=== PATIENT | male | born 1950 | race Caucasian/White ===

== ENCOUNTER → 2024-02-29 | Outpatient (CLI) | payer MEDICARE, OTHER, SELFPAY ==
[2024-02-29 12:32] LABS: Absolute Lymphocyte Count 1.22 X10^3/uL (0.83-4.51); Absolute Neutrophil Count 3.4 X10^3/uL (2.0-7.7); Basophil# 0.04 X10^3/uL; Basophil% 0.7 % (0-1); Eosinophil# 0.15 X10^3/uL; Eosinophils% 2.8 % (0-5); Erythrocyte Sedimentation Rate 2 mm/hr (0-20); Hematocrit 41.3 % (40-54); Hemoglobin 13.8 g/dL (13.0-16.5); Lymphocyte # 1.22 X10^3/ul (0.83-4.51); Lymphocyte % 22.6 % (19-41); Mean Corp Hgb Conc 33.4 g/dL (32-36); Mean Corpuscular Hgb 31.9 pg (27.0-32.0); Mean Corpuscular Volume 95.6 fL (80-94); Mean Platelet Vol. 9.3 fl (6.2-12.0); Monocyte# 0.61 X10^3/uL; Monocyte% 11.3 % (0-10); NRBC Flagged by Analyzer 0 % (0-5); Neutrophil # 3.35 X10^3/uL (2.7-7.7); Neutrophil % 62.2 % (47-70); Platelet Count 250 K/mm3 (150-450); RBC Distribution Width CV 11.7 % (11.6-14.6); RBC Distribution Width SD 41.3 fl (35.1-43.9); Red Blood Count 4.32 M/mm3 (4.6-6.2); White Blood Count 5.4 K/mm3 (4.4-11.0)
[2024-02-29 13:03] LABS: ALB/GLOB Ratio 1.1 RATIO (0.9-2.4); AST(SGOT) 17 U/L (15-37); Alanine Aminotransfer ALT/SGPT 16 U/L (16-61); Albumin, Serum 3.7 g/dL (3.2-5.0); Alkaline Phosphatase 79 U/L (45-117); Anion Gap 3 (5-15); BUN 13 mg/dL (7-18); BUN/Creat Ratio 12.1 RATIO (10-20); CRP < 2.90 mg/L (0.0-3.0); Calcium,Total 9.4 mg/dL (8.5-10.1); Chloride 106 mmol/L (98-107); Creatinine, Serum 1.07 mg/dL (0.70-1.30); EST Glomerular Filtration Rate 72 mL/min (>60); Est Glom Filt Rate - Afr Amer 87 mL/min (>60); Globulin 3.5 g/dL (2.2-4.2); Glucose 84 mg/dL (74-106); Protein, Total 7.2 g/dL (6.4-8.2); Sodium Level 139 mmol/L (136-145)
[2024-03-01 13:08] LABS: ANTINUCLEAR ANTIBODIES DIRECT Positive (Negative); CCP IgG Antibodies 24 units (0-19)
== END | disposition home or self-care (01) ==
LOC: MTLAB 10:10
PROVIDERS: PCP Family Medicine; Referring Provider Internal Medicine Rheumatology; Visit Provider Internal Medicine Rheumatology
DX: M06.30 Rheumatoid nodule, unspecified site (principal); M47.892 Other spondylosis, cervical region; M47.897 Other spondylosis, lumbosacral region
CPT/HCPCS: 36415; 80053; 85025; 85652; 86038; 86140; 86200; 86431

== ENCOUNTER → 2025-03-31 | Outpatient (CLI) | payer MEDICARE, OTHER, SELFPAY ==
[2025-03-31 16:03] LABS: Absolute Lymphocyte Count 1.23 X10^3/uL (0.83-4.51); Absolute Neutrophil Count 3.7 X10^3/uL (2.0-7.7); Basophil# 0.04 X10^3/uL; Basophil% 0.7 % (0-1); Eosinophils% 1.8 % (0-5); Hematocrit 39.7 % (40-54); Hemoglobin 13.9 g/dL (13.0-16.5); Lymphocyte # 1.23 X10^3/ul (0.83-4.51); Lymphocyte % 22.1 % (19-41); Mean Corpuscular Volume 91.5 fL (80-94); Mean Platelet Vol. 9.1 fl (6.2-12.0); Monocyte# 0.48 X10^3/uL; Monocyte% 8.6 % (0-10); NRBC Flagged by Analyzer 0 % (0-5); Neutrophil % 66.4 % (47-70); Platelet Count 245 K/mm3 (150-450); RBC Distribution Width CV 11.7 % (11.6-14.6); RBC Distribution Width SD 39.3 fl (35.1-43.9); Red Blood Count 4.34 M/mm3 (4.6-6.2); White Blood Count 5.6 K/mm3 (4.4-11.0)
[2025-03-31 16:52] LABS: Erythrocyte Sedimentation Rate 5 mm/hr (0-20)
--- OUTSIDE RECORDS SUMMARY | 2025-03-31 22:23 | XMS RPT_ITS | CCD ---
Author Organization [facility] [employer] Care Team Providers Care Informatics Application Analyst Name Role Phone Julissa Shawanda Primary Care Provider Lishnevski, Shawanda Referring Unavailable Lishnevski, Shawanda Primary Care Unavailable Lishnevski, Shawanda Attending Unavailable Lishnevski, Shawanda Referring Unavailable Anotnietta Mcgill Attending Unavailable Lishnevski, Shawanda Primary Care Unavailable Lishnevski, Shawanda Primary Care Unavailable Lishnevski, Shawanda Referring Unavailable Lishnevski, Shawanda Attending Unavailable Lishnevski, Shawanda Primary Care Unavailable Antonietta Mcgill Attending Unavailable Lishnevski, Shawanda Referring Unavailable Lishnevski, Shawanda Referring Unavailable NetConner mccarthy Attending Unavailable Lishnevski, Shawanda Primary Care Unavailable Lishnevski, Shawanda Primary Care Unavailable Chris Sandoval Attending Unavailable Lishnevski, Shawanda Referring Unavailable Lishnevski, Shawanda Primary Care Unavailable Conner Quintero Attending Unavailable Lishnevski, Shawanda Referring Unavailable Lishnevski, Shawanda Referring Unavailable Lishnevski, Shawanda Primary Care Unavailable Lishnevski, Shawanda Attending Unavailable Lishnevski, Shawanda Primary Care Unavailable MELY GALICIA Attending Unavailable Lishnevski, Shawanda Referring Unavailable Lishnevski, Shawanda Referring Unavailable Lishnevski, Shawanda Attending Unavailable Lishnevski, Shawanda Primary Care Unavailable Lishnevski, Shawanda Referring Unavailable Lishnevski, Shawanda Attending Unavailable Lishnevski, Shawanda Primary Care Unavailable Julio Chnevski , Shawanda Primary Care Provider Karma PRITCHARD, Shanel Unavailable Unavailable Tanmay Elliott DO Unavailable Lexi DO, Gurneet Unavailable Conner Quintero MD Unavailable Moris YBARRA, Igor Unavailable Otot PRITCHARD, Monet Unavailable Unavailable Julissa YBARRA, Shawanda Primary Care Provider Karma PRITCHARD, Shanel Unavailable Unavailable Lexi DO, Gurneet Unavailable Conner Quintero MD Unavailable Moris YBARRA, Igor Unavailable Otto PRITCHARD, Monet Unavailable Unavailable Julissa YBARRA, Shawanda Primary Care Provider Moris YBARRA, Igor Unavailable Leon YBARRA, Conner Unavailable Geovanny YBARRA, Elia Lopez Unavailable Lishnevski, Shawanda Primary Care Unavailable Jose Velazquezma Referring Unavailable Jose Velazquezma Attending Unavailable Lexi DO, Gurneet Unavailable LISHNEVSKI, SHAWANDA Primary Care Unavailable DANY HEALY Attending Unavailable LISHNEVSKI, SHAWANDA Primary Care Unavailable BREANNA TOLLIVER Attending Unavailable LISHNEVSKI, SHAWANDA Primary Care Unavailable LISHNEVSKI, SHAWANDA Referring Unavailable MOHAN HASKINS Attending Unavailable LISHNEVSKI, SHAWANDA Primary Care Unavailable ANTONIETTA MCGILL Attending Unavailable VAN HOLCOMB Attending Unavailable LISHNEVSKI, SHAWANDA Primary Care Unavailable LISHNEVSKI, SHAWANDA Primary Care Unavailable LISHNEVSKI, SHAWANDA Attending Unavailable LISHNEVSKI, SHAWANDA Primary Care Unavailable LISHNEVSKI, SHAWANDA Attending Unavailable LISHNEVSKI, SHAWANDA Primary Care Unavailable CONNER QUINTERO Attending Unavailable CONNER QUINTERO Admitting Unavailable LISHNEVSKI, SHAWANDA Primary Care Unavailable DANY HEALY Attending Unavailable LISHNEVSKI, SHAWANDA Primary Care Unavailable DANY HEALY Attending Unavailable LISHNEVSKI, SHAWANDA Primary Care Unavailable VAN HOLCOMB Referring Unavailable LISHNEVSKI, SHAWANDA Primary Care Unavailable ANTONIETTA MCGILL Referring Unavailable LISHNEVSKI, SHAWANDA Attending Unavailable LISHNEVSKI, SHAWANDA Primary Care Unavailable BARBARA ANGELICA Referring Unavailable SAMANGELICA LOERA Attending Unavailable LISHNEVSKI, SHAWANDA Primary Care Unavailable NETHING, CONNER Referring Unavailable NETHING, CONNER Attending Unavailable LISHNEVSKI, SHAWANDA Primary Care Unavailable NETHING, CONNER Attending Unavailable LISHNEVSKI, SHAWANDA Primary Care Unavailable DANY HEALY Attending Unavailable LISHNEVSKI, SHAWANDA Primary Care Unavailable NETHING, CONNER Attending Unavailable LISHNEVSKI, SHAWANDA Primary Care Unavailable NETHING, CONNER Attending Unavailable LISHNEVSKI, SHAWANDA Primary Care Unavailable NETHING, CONNER Referring Unavailable TAVO WICK Attending Unavailable LISHNEVSKI, SHAWANDA Primary Care Unavailable BREANNA TOLLIVER Attending Unavailable LISHNEVSKI, SHAWANDA Primary Care Unavailable LISHNEVSKI, SHAWANDA Attending Unavailable BRAYAN LEON Attending Unavailable LISHNEVSKI, SHAWANDA Primary Care Unavailable LISHNEVSKI, SHAWANDA Primary Care Unavailable MARK YEH Attending Unavailable MARK YEH Admitting Unavailable LISHNEVSKI, SHAWANDA Primary Care Unavailable GIOVANNI VELÁZQUEZMA Attending Unavailable LISHNEVSKI, SHAWANDA Primary Care Unavailable LISHNEVSKI, SHAWANDA Referring Unavailable LISHNEVSKI, SHAWANDA Attending Unavailable Allergies Allergy Classification Reported Allergen(s) Allergy Type Date of Onset Reaction(s) Facility Pollen (2 sources) Pollen Substance Allergy 2 [facility] rOPINIRole (2 sources) rOPINIRole Drug Allergy 3 [facility] [employer] Work Phone: (3 sources) Seasonal allergy Propensity to adverse reactions to substance 2 [facility] (20 sources) Other Propensity to adverse reactions 2 [facility] (20 sources) Pollen Propensity to adverse reactions 2 [facility] (2 sources) hydroCHLOROthiazide Drug Allergy 3 Other [facility] [employer] Work Phone: (20 sources) rOPINIRole Drug Allergy 3 [facility] Medications Current Medications Medication Drug Class(es) Dates Sig (Normalized) Sig (Original) acetaminophen 325 mg / HYDROcodone bitartrate 5 mg oral tablet (3 sources) Opioid Agonist Start: 04-04-2023 End: 04-08-2023 take 1 tablet by mouth every eight hours as needed for pain HYDROcodone-acetam inophen ([place]) 5-325 MG tablet Take 1 tablet by mouth every 8 hours as needed for severe pain (7-10) for up to 4 days. 12 tablet 0 04/04/2023 04/08/2023 Active 24 hr alfuzosin hydrochloride 10 mg extended release oral tablet (14 sources) alpha-Adrenergic Radha Start: 06-28-2022 take 1 tablet by mouth once daily alfuzosin (UROXATRAL) 10 MG extended release tablet Indications: Recurrent depression (HCC) , Social anxiety disorder , BPH without obstruction/lower urinary tract symptoms , Essential hypertension , Other sleep disorders , BPH without urinary obstruction Take 1 tablet by mouth daily 90 tablet 1 06/28/2022 Active Start: 06-09-2022 take 1 tablet by salvatore th once daily alfuzosin (UROXATRAL) 10 MG extended release tablet Indications: Recurrent depression (HCC) , Social anxiety disorder , BPH without obstruction/lower urinary tract symptoms , Essential hypertension , Other sleep disorders , BPH without urinary obstruction Take 1 tablet by mouth daily 90 tablet 2 06/09/2022 Active Start: 03-23-2022 take 1 tablet by salvatore th once daily alfuzosin (UROXATRAL) 10 MG extended release tablet Indications: Recurrent depression (HCC) , Social anxiety disorder , BPH without obstruction/lower urinary tract symptoms , Essential hypertension , Other sleep disorders , BPH without urinary obstruction Take 1 tablet by mouth daily 90 tablet 0 03/23/2022 Active Start: 03-10-2022 take 1 tablet by salvatore th once daily alfuzosin (UROXATRAL) 10 MG extended release tablet Indications: Recurrent depression (HCC) , Social anxiety disorder , BPH without obstruction/lower urinary tract symptoms , Essential hypertension , Other sleep disorders , BPH without urinary obstruction Take 1 tablet by mouth daily 90 tablet 0 03/10/2022 Active Start: 05-24-2021 take 1 tablet by salvatore th once daily alfuzosin (UROXATRAL) 10 MG extended release tablet Indications: Recurrent depression (HCC) , Social anxiety disorder , BPH without obstruction/lower urinary tract symptoms , Essential hypertension , Other sleep disorders , BPH without urinary obstruction Take 1 tablet by mouth daily 90 tablet 2 05/24/2021 Active Start: 12-29-2020 take 1 tablet by salvatore th once daily alfuzosin (UROXATRAL) 10 MG extended release tablet Indications: Recurrent depression (HCC) , Social anxiety disorder , BPH without obstruction/lower urinary tract symptoms , Essential hypertension , Other sleep disorders , BPH without urinary obstruction Take 1 tablet by mouth daily 90 tablet 1 12/29/2020 Active Start: 06-03-2020 take 1 tablet by salvatore th once daily alfuzosin (UROXATRAL) 10 MG extended release tablet Indications: Recurrent depression (HCC) , Social anxiety disorder , BPH without obstruction/lower urinary tract symptoms , Essential hypertension , Other sleep disorders Take 1 tablet by mouth daily 90 tablet 1 06/03/2020 Active amoxicillin 500 mg oral capsule (3 sources) Penicillin-class Antibacterial Start: 02-14-2023 End: 02-28-2023 take 2 capsules by mouth three times daily at mealtime amoxicillin (Amoxil) 500 MG capsule Take 2 capsules (1,000 mg) by mouth 3 times daily for 14 days. Take with food 84 capsule 0 02/14/2023 02/28/2023 Active ARIPiprazole 2 mg oral tablet (14 sources) Atypical Antipsychotic Start: 05-24-2021 take 1 tablet by mouth once daily in the morning ARIPiprazole (ABILIFY) 2 MG tablet take 1 tablet by mouth every morning 90 tablet 2 05/24/2021 Active Start: 05-03-2020 take 1 tablet by salvatore th once daily in the morning ARIPiprazole (ABILIFY) 2 MG tablet take 1 tablet by mouth every morning 0 05/03/2020 Active bacitracin 0.5 unt/mg topical ointment (3 sources) Start: 10-24-2023 End: 11-23-2023 bacitracin 500 UNIT/GM ointment Apply topically 2 times daily. Apply bid over affected area 14 g 0 10/24/2023 11/23/2023 Active carbidopa 25 mg / levodopa 100 mg oral tablet (20 sources) Aromatic Amino Acid Decarboxylation Inhibitor, Aromatic Amino Acid Start: 09-20-2023 End: 12-25-2023 carbidopa-levodopa (Sinemet) 25-100 MG tablet Indications: Parkinson's disease without dyskinesia or fluctuating manifestations Take 1 tablet by mouth in the morning and 1 tablet at noon and 1 tablet in the evening and 1 tablet before bedtime. 360 tablet 2 09/20/2023 12/25/2023 Discontinued Start: 06-28-2023 End: 02-09-2025 take 1 tablet by mouth three times daily carbidopa-levodopa (Sinemet) 25-100 MG tablet Indications: Parkinson's disease without dyskinesia or fluctuating manifestations (HCC) Take 1 tablet by mouth 3 times daily. 270 tablet 3 11/11/2024 Active clonazePAM 0.5 mg oral tablet (20 sources) Benzodiazepine Start: 06-20-2024 End: 04-24-2025 take 0.5 tablet by mouth once daily as needed for anxiety clonazePAM (KlonoPIN) 0.5 MG tablet Indications: Generalized anxiety disorder with panic attacks Take 0.5 tablets (0.25 mg) by mouth Daily as needed for anxiety. 8 tablet 01/24/2025 04/24/2025 Active Start: 06-20-2024 End: 05-20-2024 take 0.5 tablet by mouth once daily as needed for anxiety clonazePAM (KlonoPIN) 0.5 MG tablet Indications: Generalized anxiety disorder with panic attacks Take 0.5 tablets (0.25 mg) by mouth Daily as needed for anxiety for up to 24 doses. Do not start before June 20, 2024. 8 tablet 06/20/2024 05/20/2024 Discontinued Start: 06-20-2024 End: 09-18-2024 take 0.5 tablet by mouth once daily as needed for anxiety clonazePAM (KlonoPIN) 0.5 MG tablet Indications: Generalized anxiety disorder with panic attacks Take 0.5 tablets (0.25 mg) by mouth Daily as needed for anxiety. Do not start before June 20, 2024. 8 tablet 06/20/2024 09/18/2024 Active Start: 06-20-2024 take 0.5 tablet by m outh once daily as needed for anxiety clonazePAM (KlonoPIN) 0.5 MG tablet Indications: Generalized anxiety disorder with panic attacks Take 0.5 tablets (0.25 mg) by mouth Daily as needed for anxiety for up to 24 doses. Do not start before June 20, 2024. 8 tablet 06/20/2024 Active Start: 06-20-2024 take 0.5 tablet by m outh once daily as needed for anxiety clonazePAM (KlonoPIN) 0.5 MG tablet Indications: Generalized anxiety disorder with panic attacks Take 0.5 tablets (0.25 mg) by mouth Daily as needed for anxiety for up to 24 doses. Do not start before June 20, 2024. 8 tablet 06/20/2024 Active Start: 06-20-2024 take 0.5 tablet by m outh once daily as needed for anxiety clonazePAM (KlonoPIN) 0.5 MG tablet Indications: Generalized anxiety disorder with panic attacks Take 0.5 tablets (0.25 mg) by mouth Daily as needed for anxiety for up to 24 doses. Do not start before June 20, 2024. 8 tablet 06/20/2024 Active Start: 06-20-2024 take 0.5 tablet by m outh once daily as needed for anxiety clonazePAM (KlonoPIN) 0.5 MG tablet Indications: Generalized anxiety disorder with panic attacks Take 0.5 tablets (0.25 mg) by mouth Daily as needed for anxiety for up to 24 doses. Do not start before June 20, 2024. 8 tablet 06/20/2024 Active Start: 06-20-2024 take 0.5 tablet by m outh once daily as needed for anxiety clonazePAM (KlonoPIN) 0.5 MG tablet Indications: Generalized anxiety disorder with panic attacks Take 0.5 tablets (0.25 mg) by mouth Daily as needed for anxiety for up to 24 doses. Do not start before June 20, 2024. 8 tablet 06/20/2024 Active Start: 06-20-2024 take 0.5 tablet by m outh once daily as needed for anxiety clonazePAM (KlonoPIN) 0.5 MG tablet Indications: Generalized anxiety disorder with panic attacks Take 0.5 tablets (0.25 mg) by mouth Daily as needed for anxiety for up to 24 doses. Do not start before June 20, 2024. 8 tablet 06/20/2024 Active Start: 06-20-2024 take 0.5 tablet by m outh once daily as needed for anxiety clonazePAM (KlonoPIN) 0.5 MG tablet Indications: Generalized anxiety disorder with panic attacks Take 0.5 tablets (0.25 mg) by mouth Daily as needed for anxiety for up to 24 doses. Do not start before June 20, 2024. 8 tablet 06/20/2024 Active Start: 06-20-2024 take 0.5 tablet by m outh once daily as needed for anxiety clonazePAM (KlonoPIN) 0.5 MG tablet Indications: Generalized anxiety disorder with panic attacks Take 0.5 tablets (0.25 mg) by mouth Daily as needed for anxiety for up to 24 doses. Do not start before June 20, 2024. 8 tablet 06/20/2024 Active Start: 06-20-2024 take 0.5 tablet by m outh once daily as needed for anxiety clonazePAM (KlonoPIN) 0.5 MG tablet Indications: Generalized anxiety disorder with panic attacks Take 0.5 tablets (0.25 mg) by mouth Daily as needed for anxiety for up to 24 doses. Do not start before June 20, 2024. 8 tablet 06/20/2024 Active Start: 06-20-2024 take 0.5 tablet by m outh once daily as needed for anxiety clonazePAM (KlonoPIN) 0.5 MG tablet Indications: Generalized anxiety disorder with panic attacks Take 0.5 tablets (0.25 mg) by mouth Daily as needed for anxiety for up to 24 doses. Do not start before June 20, 2024. 8 tablet 06/20/2024 Active Start: 06-20-2024 take 0.5 tablet by m outh once daily as needed for anxiety clonazePAM (KlonoPIN) 0.5 MG tablet Indications: Generalized anxiety disorder with panic attacks Take 0.5 tablets (0.25 mg) by mouth Daily as needed for anxiety for up to 24 doses. Do not start before June 20, 2024. 8 tablet 06/20/2024 Active Start: 03-19-2024 End: 04-23-2024 take 0.5 tablet by mouth once daily as needed for anxiety clonazePAM (KlonoPIN) 0.5 MG tablet Indications: Generalized anxiety disorder with panic attacks Take 0.5 tablets (0.25 mg) by mouth Daily as needed for anxiety for up to 24 doses. 12 tablet 03/19/2024 04/23/2024 Discontinued (Reorder) Start: 01-03-2024 take 0.5 tablet by m outh once daily as needed for anxiety clonazePAM (KlonoPIN) 0.5 MG tablet Indications: Generalized anxiety disorder with panic attacks Take 0.5 tablets (0.25 mg) by mouth Daily as needed for anxiety. 8 tablet 0 01/03/2024 Active Start: 09-26-2023 take 0.5 tablet by m outh once daily as needed for anxiety clonazePAM (KlonoPIN) 0.5 MG tablet Indications: Generalized anxiety disorder with panic attacks Take 0.5 tablets (0.25 mg) by mouth Daily as needed for anxiety. 8 tablet 0 09/26/2023 Active Start: 05-23-2023 End: 08-01-2023 take 0.5 tablet by mouth once daily as needed for anxiety clonazePAM (KlonoPIN) 0.5 MG tablet Indications: Generalized anxiety disorder with panic attacks Take 0.5 tablets (0.25 mg) by mouth Daily as needed for anxiety. 8 tablet 0 08/01/2023 Active Start: 05-23-2023 take 0.5 tablet by m outh once daily as needed for anxiety clonazePAM (KlonoPIN) 0.5 MG tablet Indications: Generalized anxiety disorder with panic attacks Take 0.5 tablets (0.25 mg) by mouth Daily as needed for anxiety. Do not start before May 23, 2023. 8 tablet 0 05/23/2023 Active Start: 04-19-2023 take 0.5 tablet by m outh once daily as needed for anxiety clonazePAM (KlonoPIN) 0.5 MG tablet Indications: Generalized anxiety disorder with panic attacks Take 0.5 tablets (0.25 mg) by mouth Daily as needed for anxiety. 8 tablet 0 04/19/2023 Active Start: 02-11-2023 End: 02-14-2023 take 1 tablet by mouth every twenty-four hours as needed for anxiety 0.25 mg, Oral, Daily PRN, anxiety, Starting on 02/11/23 at 1824 Start: 09-28-2022 End: 01-17-2023 take 0.5 tablet by mouth once daily as needed for anxiety clonazePAM (KlonoPIN) 0.5 MG tablet Indications: Generalized anxiety disorder with panic attacks Take 0.5 tablets (0.25 mg) by mouth Daily as needed for anxiety. 8 tablet 0 01/17/2023 Active Start: 09-02-2019 clonazePAM (KL ONOPIN) 0.5 MG tablet 3 times daily as needed. 0 09/02/2019 Active docusate sodium 100 mg oral capsule (17 sources) Start: 04-08-2024 End: 04-24-2024 take 1 capsule by mouth twice daily docusate sodium (Colace) 100 MG capsule Take 1 capsule (100 mg) by mouth 2 times daily for 10 days. 20 capsule 04/09/2024 04/24/2024 Active doxycycline hyclate 100 mg oral capsule (2 sources) Tetracycline- class Drug Start: 10-24-2023 End: 10-31-2023 doxycycline (Vibramycin) 100 MG capsule Take 1 capsule (100 mg) by mouth 2 times daily for 7 days. Take with at least 8 ounces (large glass) of water, do not lie down for 30 minutes after 14 capsule 0 10/24/2023 10/31/2023 Active Start: 03-04-2023 End: 03-14-2023 doxycycline (Vibramycin) 100 MG capsule Take 1 capsule (100 mg) by mouth 2 times daily for 7 days. Take with at least 8 ounces (large glass) of water, do not lie down for 30 minutes after 14 capsule 0 03/04/2023 03/14/2023 Discontinued (Therapy completed) ezetimibe 10 mg oral tablet (8 sources) Dietary Cholesterol Absorption Inhibitor Start: 05-24-2021 take 1 tablet by mouth once daily ezetimibe (ZETIA) 10 MG tablet Indications: Mixed hyperlipidemia , BPH without urinary obstruction Take 1 tablet by mouth daily 90 tablet 2 05/24/2021 Active Start: 12-29-2020 take 1 tablet by salvatore th once daily ezetimibe (ZETIA) 10 MG tablet Indications: Mixed hyperlipidemia , BPH without urinary obstruction Take 1 tablet by mouth daily 30 tablet 3 12/29/2020 Active Start: 06-03-2020 take 1 tablet by salvatore th once daily ezetimibe (ZETIA) 10 MG tablet Indications: Mixed hyperlipidemia Take 1 tablet by mouth daily 30 tablet 3 06/03/2020 Active gabapentin 400 mg oral capsule (20 sources) Anti-epileptic Agent Start: 05-15-2024 End: 08-13-2024 take 3 capsules by mouth once daily gabapentin (Neurontin) 400 MG capsule Indications: REM behavioral disorder Take 3 capsules (1,200 mg) by mouth Nightly. Do not start before May 15, 2024. 270 capsule 3 05/15/2024 Active Start: 04-10-2024 End: 04-10-2025 take 1 capsule by mouth three times daily gabapentin (Neurontin) 400 MG capsule Take 1 capsule (400 mg) by mouth 3 times daily. 90 capsule 1 04/10/2024 05/10/2024 Discontinued (Reorder) Start: 04-08-2024 End: 04-09-2024 take 2000 mg by mouth once daily 2,000 mg, Oral, Nightly, First dose on 04/08/24 at 2100, Phase II/On Unit Start: 05-01-2023 End: 01-14-2024 gabapentin (Neurontin) 400 M G capsule Take 5 before bedime 150 capsule 3 01/15/2024 Active Start: 03-07-2023 gabapentin (Ne urontin) 400 MG capsule Take 3 before bedime 150 capsule 3 03/07/2023 Active Start: 02-12-2023 End: 02-14-2023 gabapentin (Neurontin) table t 600 mg Start: 10-03-2022 gabapentin (Ne urontin) 400 MG capsule Take 5 before bedime 150 capsule 3 10/03/2022 Active Start: 05-13-2022 End: 09-13-2022 take 1 capsule by mouth five times daily gabapentin (NEURONTIN) 400 MG capsule Indications: Recurrent depression (HCC) , Social anxiety disorder , BPH without obstruction/lower urinary tract symptoms , Essential hypertension , Other sleep disorders , BPH without urinary obstruction Take 1 capsule by mouth 5 times daily for 120 days. 150 capsule 3 05/16/2022 09/13/2022 Active Start: 01-17-2022 take 1 capsule by mo uth five times daily gabapentin (NEURONTIN) 400 MG capsule Indications: Recurrent depression (HCC) , Social anxiety disorder , BPH without obstruction/lower urinary tract symptoms , Essential hypertension , Other sleep disorders , BPH without urinary obstruction Take 1 capsule by mouth 5 times daily for 30 days. 150 capsule 3 01/17/2022 Active Start: 09-16-2021 take 1 capsule by mo uth five times daily gabapentin (NEURONTIN) 400 MG capsule Indications: Recurrent depression (HCC) , Social anxiety disorder , BPH without obstruction/lower urinary tract symptoms , Essential hypertension , Other sleep disorders , BPH without urinary obstruction Take 1 capsule by mouth 5 times daily for 30 days. 150 capsule 3 09/16/2021 Active Start: 12-29-2020 take 1 capsule by mo uth five times daily gabapentin (NEURONTIN) 400 MG capsule Indications: Recurrent depression (HCC) , Social anxiety disorder , BPH without obstruction/lower urinary tract symptoms , Essential hypertension , Other sleep disorders , BPH without urinary obstruction Take 1 capsule by mouth 5 times daily for 30 days. 150 capsule 3 12/29/2020 Active Start: 06-03-2020 End: 07-03-2020 take 1 capsule by mouth five times daily gabapentin (NEURONTIN) 400 MG capsule Indications: Recurrent depression (HCC) , Social anxiety disorder , BPH without obstruction/lower urinary tract symptoms , Essential hypertension , Other sleep disorders Take 1 capsule by mouth 5 times daily for 30 days. 150 capsule 3 06/03/2020 Active hydroCHLOROthiazide 25 mg oral tablet (8 sources) Thiazide Diuretic Start: 05-24-2021 End: 08-22-2021 take 1 tablet by mouth once daily hydroCHLOROthiazide (HYDRODIURIL) 25 MG tablet Indications: Recurrent depression (HCC) , Essential hypertension , BPH without urinary obstruction Take 1 tablet by mouth daily 90 tablet 2 05/24/2021 08/22/2021 Active Start: 12-29-2020 take 1 tablet by salvatore th once daily hydroCHLOROthiazide (HYDRODIURIL) 25 MG tablet Indications: Recurrent depression (HCC) , Essential hypertension , BPH without urinary obstruction Take 1 tablet by mouth daily 90 tablet 0 12/29/2020 Active Start: 06-03-2020 End: 11-29-2020 take 1 tablet by mouth once daily hydroCHLOROthiazide (HYDRODIURIL) 25 MG tablet Indications: Recurrent depression (HCC) , Essential hypertension Take 1 tablet by mouth daily 90 tablet 0 08/31/2020 11/29/2020 Active loratadine 10 mg oral tablet (20 sources) Start: 11-20-2023 End: 05-12-2025 take 1 tablet by mouth once daily loratadine (Claritin) 10 MG tablet TAKE 1 TABLET (10 MG) BY MOUTH DAILY. 90 tablet 1 11/13/2024 05/12/2025 Active Start: 05-22-2023 End: 11-18-2023 take 1 tablet by mouth once daily loratadine (Claritin) 10 MG tablet Take 1 tablet (10 mg) by mouth daily. 90 tablet 1 05/22/2023 11/18/2023 Discontinued (Reorder) Start: 06-28-2022 take 1 tablet by salvatore th once daily loratadine (CLARITIN) 10 MG tablet Indications: Pulmonary emphysema, unspecified emphysema type (HCC) Take 1 tablet by mouth daily 90 tablet 0 06/28/2022 Active Start: 05-26-2022 take 1 tablet by salvatore th in the morning loratadine (CLARITIN) 10 MG tablet Indications: Pulmonary emphysema, unspecified emphysema type (HCC) Take 1 tablet by mouth in the morning. 90 tablet 0 05/26/2022 Active Start: 03-23-2022 take 1 tablet by salvatore th once daily loratadine (CLARITIN) 10 MG tablet Indications: Pulmonary emphysema, unspecified emphysema type (HCC) Take 1 tablet by mouth daily 30 tablet 3 03/23/2022 Active Start: 11-26-2021 take 1 tablet by salvatore th once daily loratadine (CLARITIN) 10 MG tablet Indications: Pulmonary emphysema, unspecified emphysema type (HCC) Take 1 tablet by mouth daily 30 tablet 3 11/26/2021 Active methylPREDNISolone 4 mg oral tablet (20 sources) Corticosteroid Start: 11-06-2023 End: 11-13-2023 methylPREDNISolone (Medrol Dospak) 4 MG tablets Take as directed on package. 21 tablet 0 11/06/2023 11/13/2023 Active Start: 08-29-2023 End: 09-05-2023 methylPREDNISolone (Medrol D ospak) 4 MG tablets Take as directed on package. 21 tablet 0 08/29/2023 09/05/2023 Active Start: 01-02-2023 End: 01-09-2023 methylPREDNISolone (Medrol D ospak) 4 MG tablets Take as directed on package. 21 tablet 0 01/02/2023 01/09/2023 Start: 01-02-2023 End: 01-09-2023 methylPREDNISolone (Medrol D ospak) 4 MG tablets Take as directed on package. 21 tablet 0 01/02/2023 01/09/2023 Active mupirocin 0.02 mg/mg topical ointment (2 sources) RNA Synthetase Inhibitor Antibacterial Start: 06-20-2023 End: 06-30-2023 mupirocin (Bactroban) 2 % ointment Indications: Sore in nose Apply topically 3 times daily for 10 days. Apply once daily nasally 22 g 0 06/20/2023 06/30/2023 Active oxyCODONE hydrochloride 5 mg oral tablet (8 sources) Opioid Agonist Start: 04-09-2024 End: 04-14-2024 take 1 tablet by mouth every six hours as needed for pain oxyCODONE (Roxicodone) 5 MG immediate release tablet Indications: Post-op pain Take 1 tablet (5 mg) by mouth every 6 hours as needed for severe pain (7-10) for up to 5 days. 15 tablet 04/09/2024 04/14/2024 Active Start: 04-08-2024 End: 04-09-2024 take 1 tablet by mouth every four hours as needed for pain oxyCODONE (Roxicodone) immediate release tablet 2.5 mg Start: 04-04-2023 End: 04-04-2023 oxyCODONE (Roxicodone) immed iate release tablet 5 mg PARoxetine hydrochloride 10 mg oral tablet (20 sources) Serotonin Reuptake Inhibitor Start: 04-09-2024 End: 04-09-2024 take 10 mg by mouth once daily in the morning 10 mg, Oral, Every morning, First dose on Mon04/09/24 at 0900, Phase II/On Unit Start: 03-19-2024 End: 07-18-2025 take 1 tablet by mouth once daily in the morning PARoxetine (Paxil) 10 MG tablet Take 1 tablet (10 mg) by mouth every morning. 90 tablet 3 07/23/2024 07/18/2025 Active Start: 05-16-2023 End: 08-12-2023 take 1 tablet by mouth once daily in the morning PARoxetine (Paxil) 10 MG tablet Take 1 tablet (10 mg) by mouth every morning. 30 tablet 1 06/13/2023 08/01/2023 Discontinued Start: 02-11-2023 End: 02-14-2023 take 30 mg by mouth once daily 30 mg, Oral, Daily, Fir st dose on 02/11/23 at 1830 Start: 11-07-2022 End: 05-07-2023 take 1 tablet by mouth once daily PARoxetine (Paxil) 30 MG tablet Take 1 tablet (30 mg) by mouth daily. 30 tablet 2 02/06/2023 05/07/2023 Active Start: 08-29-2022 take 1 tablet by salvatore th in the morning PARoxetine (Paxil) 30 MG tablet Take 1 tablet (30 mg) by mouth in the morning. 30 tablet 2 08/29/2022 Active phenazopyridine hydrochloride 200 mg delayed release oral tablet (3 sources) Start: 04-04-2023 End: 04-07-2023 take 1 tablet by mouth three times daily as needed for muscle spasms phenazopyridine (Pyridium) 200 MG tablet Take 1 tablet (200 mg) by mouth 3 times daily as needed for bladder spasms for up to 3 days. 9 tablet 0 04/04/2023 04/07/2023 Active polyethylene glycol 3350 56338 mg powder for oral solution (13 sources) Osmotic Laxative Start: 01-20-2025 polyethylene glycol, PEG, 3350 (MiraLax) 17 GM/SCOOP powder Indications: Rectal bleeding , Irregular bowel habits Take 17 g by mouth daily. 510 g 3 01/20/2025 Active Start: 04-08-2024 End: 04-09-2024 take 17 g by mouth every twenty-four hours as needed for constipation Start: 02-11-2023 End: 02-14-2023 take 17 g by mouth every twenty-four hours as needed for constipation polyethylene glycol (PEG) 3350 (Miralax) packet 17 g polyethylene glycol 3350 [id number] mg / potassium chloride 2970 mg / sodium bicarbonate 6740 mg / sodium chloride 5860 mg / sodium sulfate 48667 mg powder for oral solution (1 source) Osmotic Laxative Start: 01-20-2025 End: 01-21-2025 polyethylene glycol (GaviLyte-G) 236 g solution Indications: Rectal bleeding Please take as directed by GI office for colonoscopy prep. 4000 mL 01/20/2025 01/21/2025 Active 24 hr propranolol hydrochloride 60 mg extended release oral capsule (20 sources) beta-Adrenergic Radha Start: 11-11-2024 End: 02-09-2025 take 1 capsule by mouth once daily propranolol LA (Inderal LA) 60 MG 24 hr capsule Take 1 capsule (60 mg) by mouth daily. Do not crush, chew, or split. 90 capsule 3 11/11/2024 Active Start: 01-24-2023 End: 11-11-2024 take 1 tablet by mouth twice daily propranolol (Inderal) 20 MG tablet TAKE 1 TABLET BY MOUTH TWICE A DAY 180 tablet 1 08/23/2024 11/11/2024 Discontinued QUEtiapine 25 mg oral tablet (10 sources) Atypical Antipsychotic Start: 05-24-2021 take 0.5 tablet by mouth at bedtime QUEtiapine (SEROQUEL) 25 MG tablet take 1/2 tablet by mouth at bedtime 180 tablet 2 05/24/2021 Active Start: 02-04-2020 take 0.5 tablet by m outh at bedtime QUEtiapine (SEROQUEL) 25 MG tablet take 1/2 tablet by mouth at bedtime 0 02/04/2020 Active tamsulosin hydrochloride 0.4 mg oral capsule (20 sources) alpha-Adrenergic Radha Start: 11-13-2023 End: 11-13-2024 take 1 capsule by mouth once daily tamsulosin (Flomax) 0.4 MG 24 hr capsule TAKE 1 CAPSULE BY MOUTH EVERY DAY 90 capsule 1 11/13/2024 Active Start: 08-14-2023 End: 11-11-2023 take 1 capsule by mouth once daily tamsulosin (Flomax) 0.4 MG 24 hr capsule Take 1 capsule (0.4 mg) by mouth daily. 90 capsule 1 08/14/2023 11/11/2023 Discontinued (Reorder) Start: 10-03-2022 End: 08-12-2023 take 1 capsule by mouth once daily tamsulosin (Flomax) 0.4 MG 24 hr capsule Take 1 capsule (0.4 mg) by mouth daily. 90 capsule 1 05/17/2023 08/12/2023 Discontinued (Reorder) Start: 06-28-2022 take 1 capsule by mo uth once daily tamsulosin (FLOMAX) 0.4 MG capsule Take 1 capsule by mouth daily 90 capsule 1 06/28/2022 Active telmisartan 20 mg oral tablet (20 sources) Angiotensin 2 Receptor Radha Start: 03-12-2024 End: 12-05-2024 take 1 tablet by mouth once daily telmisartan (MIcarDIS) 20 MG tablet TAKE 1 TABLET BY MOUTH EVERY DAY 90 tablet 1 12/05/2024 Active Start: 03-02-2023 End: 03-10-2024 take 1 tablet by mouth once daily telmisartan (MIcarDIS) 20 MG tablet Take 1 tablet (20 mg) by mouth daily. 90 tablet 1 09/12/2023 03/10/2024 Discontinued (Reorder) Start: 10-03-2022 take 1 tablet by salvatore th once daily telmisartan (MIcarDIS) 20 MG tablet Take 1 tablet (20 mg) by mouth daily. 30 tablet 3 10/03/2022 Active Start: 06-28-2022 take 1 tablet by salvatore th once daily telmisartan (MICARDIS) 20 MG tablet Indications: Recurrent depression (HCC) , Essential hypertension , BPH without urinary obstruction Take 1 tablet by mouth daily 90 tablet 1 06/28/2022 Active Start: 05-26-2022 take 1 tablet by salvatore th in the morning telmisartan (MICARDIS) 20 MG tablet Indications: Recurrent depression (HCC) , Essential hypertension , BPH without urinary obstruction Take 1 tablet by mouth in the morning. 90 tablet 0 05/26/2022 Active Start: 03-23-2022 take 1 tablet by salvatore th once daily telmisartan (MICARDIS) 20 MG tablet Indications: Recurrent depression (HCC) , Essential hypertension , BPH without urinary obstruction Take 1 tablet by mouth daily 90 tablet 0 03/23/2022 Active Start: 02-21-2022 take 1 tablet by salvatore th once daily telmisartan (MICARDIS) 20 MG tablet Indications: Recurrent depression (HCC) , Essential hypertension , BPH without urinary obstruction Take 1 tablet by mouth daily 90 tablet 0 02/21/2022 Active Start: 05-24-2021 take 1 tablet by salvatore th once daily telmisartan (MICARDIS) 20 MG tablet Indications: Recurrent depression (HCC) , Essential hypertension , BPH without urinary obstruction Take 1 tablet by mouth daily 90 tablet 2 05/24/2021 Active Start: 12-29-2020 take 1 tablet by salvatore th once daily telmisartan (MICARDIS) 20 MG tablet Indications: Recurrent depression (HCC) , Essential hypertension , BPH without urinary obstruction Take 1 tablet by mouth daily 90 tablet 0 12/29/2020 Active Start: 08-31-2020 take 1 tablet by salvatore th once daily telmisartan (MICARDIS) 20 MG tablet Indications: Recurrent depression (HCC) , Essential hypertension Take 1 tablet by mouth daily 90 tablet 0 08/31/2020 Active Start: 06-03-2020 take 1 tablet by salvatore th once daily telmisartan (MICARDIS) 20 MG tablet Indications: Recurrent depression (HCC) , Social anxiety disorder , BPH without obstruction/lower urinary tract symptoms , Essential hypertension , Other sleep disorders Take 1 tablet by mouth daily 90 tablet 0 06/03/2020 Active venlafaxine 37.5 mg oral tablet (14 sources) Serotonin and Norepinephrine Reuptake Inhibitor Start: 09-16-2021 take 1 tablet by mouth twice daily venlafaxine (EFFEXOR) 37.5 MG tablet Take 37.5 mg by mouth 2 times daily 0 09/16/2021 Active Start: 05-24-2021 take 1 tablet by salvatore th twice daily venlafaxine (EFFEXOR) 50 MG tablet Take 1 tablet by mouth 2 times daily 270 tablet 2 05/24/2021 Active take 1 tablet by salvatore th twice daily venlafaxine (EFFEXOR) 50 MG tablet Take 50 mg by mouth 2 times daily 0 Active Completed/Discontinued Medications Medication Drug Class(es) Dates Sig (Normalized) Sig (Original) acetaminophen 500 mg oral tablet (12 sources) Start: 04-08-2024 End: 04-09-2024 take 1 tablet by mouth every eight hours 1,000 mg, Oral, Every 8 hours, First dose on Mon04/08/24 at 2200, Phase II/On Unit Start: 04-08-2024 End: 04-08-2024 1,000 mg, Oral, Once, On Mon04/08/24 at 1245, For 1 dose, Preprocedure, Administer 60 minutes prior to surgery. Start: 04-04-2023 End: 04-04-2023 acetaminophen (Tylenol) tabl et 1,000 mg Start: 02-11-2023 End: 02-14-2023 take 1 tablet by mouth every six hours as needed for pain and fever acetaminophen (Tylenol) tablet 650 mg Start: 02-11-2023 End: 02-11-2023 take 1 tablet by mouth every six hours as needed for pain acetaminophen (Tylenol) tablet 650 mg amoxicillin 875 mg / clavulanate 125 mg oral tablet (2 sources) Penicillin-class Antibacterial Start: 02-14-2023 End: 02-14-2023 take 1 tablet by mouth twice daily amoxicillin-clavulanate (Augmentin) 875-125 MG tablet Take 1 tablet by mouth 2 times daily for 14 days. 28 tablet 0 02/14/2023 02/14/2023 Discontinued (Stop taking at discharge) ampicillin (Omnipen) 2,000 mg in sodium chloride 0.9 % 100 mL IVPB (2 sources) Start: 02-13-2023 End: 02-14-2023 take 2000 mg intravenously every four hours ampicillin (Omnipen) 2,000 mg in sodium chloride 0.9 % 100 mL IVPB calcium chloride 0.0014 meq/ml / potassium chloride 0.004 meq/ml / sodium chloride 0.103 meq/ml / sodium lactate 0.028 meq/ml injectable solution (10 sources) Start: 04-08-2024 End: 04-09-2024 take 75 mL intravenously every hour 75 mL/hr, IntraVENous, Continuous, Starting on Mon04/08/24 at 1915, Phase II/On Unit Start: 04-04-2023 End: 04-04-2023 lactated Ringer's infusion Start: 02-11-2023 End: 02-11-2023 lactated ringers bolus 3,120 mL ceFAZolin (Ancef) 1,000 mg in sodium chloride 0.9 % 50 mL IVPB (2 sources) Start: 04-08-2024 End: 04-09-2024 take 1000 mg intravenously every eight hours 1,000 mg, IntraVENous, at 100 mL/hr, Administer over 30 Minutes, Every 8 hours, First dose on Mon04/08/24 at 2200, For 24 hours, Phase II/On Unit, Mini-Bag Plus bag, Suspected Indication (Select all that apply): Surgical Prophylaxis cefTRIAXone (Rocephin) 2 g in sodium chloride 0.9 % 50 mL IVPB Mini-Bag Plus (2 sources) Start: 02-11-2023 End: 02-11-2023 cefTRIAXone (Rocephin) 2 g in sodium chloride 0.9 % 50 mL IVPB Mini-Bag Plus cefTRIAXone (Rocephin) 2,000 mg in sodium chloride 0.9 % 50 mL IVPB Mini-Bag Plus (2 sources) Start: 02-12-2023 End: 02-13-2023 cefTRIAXone (Rocephin) 2,000 mg in sodium chloride 0.9 % 50 mL IVPB Mini-Bag Plus cetirizine hydrochloride 10 mg oral tablet (2 sources) Histamine-1 Receptor Antagonist Start: 04-09-2024 End: 04-09-2024 10 mg, Oral, Daily, First dose on Mon04/09/24 at 0900, Phase II/On Unit, Substituted for Loratadine (CLARITIN). cyclobenzaprine hydrochloride 10 mg oral tablet (20 sources) Muscle Relaxant Start: 12-15-2022 End: 02-24-2025 take 1 tablet by mouth once daily as needed for muscle spasms cyclobenzaprine (Flexeril) 10 MG tablet Take 1 tablet (10 mg) by mouth Nightly as needed for muscle spasms. 30 tablet 1 01/02/2023 02/24/2025 Discontinued (Therapy completed) 1 ml diphenhydrAMINE hydrochloride 50 mg/ml cartridge (2 sources) Histamine-1 Receptor Antagonist Start: 04-04-2023 End: 04-04-2023 diphenhydrAMINE (BENADryl) injection 12.5 mg fluticasone propionate 0.05 mg/actuat metered dose nasal spray (20 sources) Corticosteroid Start: 05-17-2023 End: 10-24-2023 take 1 spray(s) nasal route once daily fluticasone (Flonase) 50 MCG/ACT nasal spray Administer 1 spray into each nostril daily. 16 g 3 05/17/2023 10/24/2023 Discontinued (Therapy completed) Start: 02-11-2023 End: 02-14-2023 1 spray, Each Nostril, Daily , First dose on 02/11/23 at 1900 Shake gently. Before first use, prime pump (press 6 times until fine spray appears). After use, clean tip and replace cap. Start: 10-03-2022 take 1 spray(s) nasa l route once daily fluticasone (Flonase) 50 MCG/ACT nasal spray Administer 1 spray into each nostril daily. 16 g 3 10/03/2022 Active Start: 06-28-2022 take 1 spray(s) nasa l route once daily fluticasone (FLONASE) 50 MCG/ACT nasal spray 1 spray by Each Nostril route daily 16 g 2 06/28/2022 Active Start: 03-23-2022 take 1 spray(s) nasa l route once daily fluticasone (FLONASE) 50 MCG/ACT nasal spray 1 spray by Each Nostril route daily 16 g 2 03/23/2022 Active gadobutrol (Gadavist) injection 10 mL (2 sources) Start: 07-21-2023 End: 07-21-2023 gadobutrol (Gadavist) injection 10 mL 0.5 ml heparin sodium, porcine 44319 unt/ml prefilled syringe (2 sources) Unfractionated Heparin, Anti-coagulant Start: 04-09-2024 End: 04-09-2024 inject 1 dose by subcutaneous injection twice daily 5,000 Units, SubCUTAneous, Every 12 hours scheduled (2 times per day), First dose on Mon04/09/24 at 0900 hydrocortisone acetate 25 mg rectal suppository (5 sources) Corticosteroid Start: 01-20-2025 End: 02-04-2025 hydrocortisone (Anusol-HC) 25 MG suppository Indications: Hemorrhoids, unspecified hemorrhoid type Insert 1 suppository (25 mg) into the rectum 2 times daily for 10 days. 20 suppository 01/20/2025 02/04/2025 Discontinued (Reorder) 1 ml HYDROmorphone hydrochloride 1 mg/ml cartridge (8 sources) Opioid Agonist Start: 04-08-2024 End: 04-09-2024 take 0.5 mg intravenously every four hours as needed Start: 04-08-2024 End: 04-08-2024 0.25 mg, IntraVENous, Every 5 min PRN, moderate pain (4-6), Starting on Mon04/08/24 at 1703, For 4 doses, Recovery (only), Phase I and Phase II- Initial therapy for moderate pain (4-6). Restricted to a 90 minute time frame starting when the patient can verbally state their pain score. If after 2 doses the pain score does not decrease by more than one point, then call the provider. If oral meds are utilized, do not return to initial therapy medications. Start: 04-04-2023 End: 04-04-2023 HYDROmorphone (Dilaudid) inj ection 0.25 mg Start: 04-04-2023 End: 04-04-2023 HYDROmorphone (Dilaudid) inj ection 0.5 mg iopamidol (ISOVUE-370) 76 % injection 75 mL (1 source) Start: 08-28-2020 End: 08-28-2020 iopamidol (ISOVUE-370) 76 % injection 75 mL iopamidol (Isovue-370) 76 % injection 75 mL (2 sources) Start: 04-19-2024 End: 04-19-2024 take 75 mL intravenously once as needed 75 mL, IntraVENous, IMG once PRN, contrast, Starting on Mon04/19/24 at 0906, For 1 dose 1 ml ketorolac tromethamine 15 mg/ml cartridge (2 sources) Nonsteroidal Anti-inflammatory Drug, Cyclooxygenase Inhibitor Start: 02-11-2023 End: 02-14-2023 take 15 mg intravenously every six hours as needed for pain ketorolac (Toradol) injection 15 mg labetalol (Normodyne,Tranda te) injection 5 mg (2 sources) Start: 04-04-2023 End: 04-04-2023 labetalol (Normodyne,Trand ate) injection 5 mg loratadine (Claritin) 5 mg split tablet (20 sources) Start: 11-26-2021 End: 07-07-2023 take 1 tablet by mouth once daily loratadine (Claritin) 5 mg split tablet take 1 tablet by mouth once daily 0 11/26/2021 07/07/2023 Discontinued (Ineffective) Start: 11-26-2021 take 1 tablet by salvatore th once daily loratadine (Claritin) 5 mg split tablet take 1 tablet by mouth once daily 0 11/26/2021 Suspended Start: 11-26-2021 take 1 tablet by salvatore th once daily loratadine (Claritin) 5 mg split tablet take 1 tablet by mouth once daily 0 11/26/2021 Active 1 ml LORazepam 2 mg/ml injection (2 sources) Benzodiazepine Start: 04-04-2023 End: 04-04-2023 LORazepam (Ativan) injection 0.5 mg losartan potassium 50 mg oral tablet (4 sources) Angiotensin 2 Receptor Radha Start: 04-09-2024 End: 04-09-2024 Start: 02-11-2023 End: 02-14-2023 take 100 mg by mouth once daily 100 mg, Oral, Daily, First dose on 02/11/23 at 1830 Substituted for Telmisartan (MICARDIS). Hold if SBP<100 meloxicam 15 mg oral tablet (20 sources) Nonsteroidal Anti-inflammatory Drug Start: 01-31-2023 End: 05-10-2024 meloxicam (Mobic) 15 MG tablet Take by mouth Daily as needed. 01/31/2023 05/10/2024 Discontinued 2 ml metoclopramide 5 mg/ml prefilled syringe (2 sources) Dopamine-2 Receptor Antagonist Start: 04-04-2023 End: 04-04-2023 metoclopramide (Reglan) injection 5 mg 1 ml morphine sulfate 4 mg/ml injection (2 sources) Opioid Agonist Start: 02-11-2023 End: 02-14-2023 take 2 mg intravenously every four hours as needed for pain morphine sulfate (PF) injection 2 mg 1 ml naloxone hydrochloride 0.4 mg/ml injection (2 sources) Opioid Antagonist Start: 04-09-2024 End: 04-09-2024 0.4 mg, IntraVENous, Every 5 min PRN, opioid reversal, Starting on Mon04/09/24 at 0801, For RR nystatin [id number] unt/ml oral suspension (4 sources) Polyene Antifungal Start: 06-20-2023 End: 07-07-2023 nystatin (Mycostatin) [id number] UNIT/ML suspension Indications: Mouth sores Take 5 mL (500,000 Units) by mouth in the morning and 5 mL (500,000 Units) at noon and 5 mL (500,000 Units) in the evening and 5 mL (500,000 Units) before bedtime. Do all this for 14 days. Swish in mouth and swallow.. 280 mL 0 06/20/2023 07/07/2023 Discontinued (Ineffective) 2 ml ondansetron 2 mg/ml injection (4 sources) Serotonin-3 Receptor Antagonist Start: 04-04-2023 End: 04-04-2023 ondansetron (Zofran) injection 4 mg Start: 02-11-2023 End: 02-14-2023 take 1 tablet by mouth every eight hours as needed for nausea and vomiting ondansetron ODT (Zofran-ODT) disintegrating tablet 4 mg ondansetron ODT (Zofran-ODT) disintegrating tablet 4 mg (2 sources) Start: 04-08-2024 End: 04-09-2024 take 1 tablet by mouth every eight hours as needed for nausea and vomiting ondansetron ODT (Zofran-ODT) disintegrating tablet 4 mg perflutren lipid microspheres (Definity) injection 1.65 mg (4 sources) Start: 09-16-2024 End: 09-16-2024 1.65 mg (1.5 mL), IntraVENous, IMG once PRN, other, Starting on Mon09/16/24 at 1616, For 1 dose, CV Procedural Medications, Once activated, final concentration equals 1.1 mg/mL Start: 02-13-2023 End: 02-13-2023 perflutren lipid microsphere s (Definity) injection 1.65 mg rasagiline 0.5 mg oral tablet (20 sources) Monoamine Oxidase Inhibitor Start: 12-25-2023 End: 05-10-2024 take 1 tablet by mouth once daily rasagiline (Azilect) 0.5 MG tablet Indications: Parkinson's disease without dyskinesia or fluctuating manifestations (HCC) Take 1 tablet (0.5 mg) by mouth daily. 90 tablet 1 12/25/2023 05/10/2024 Discontinued rOPINIRole 1 mg oral tablet (14 sources) Nonergot Dopamine Agonist Start: 04-10-2023 End: 04-09-2024 take 1 tablet by mouth three times daily rOPINIRole (Requip) 1 MG tablet Indications: Tremor Take 1 tablet (1 mg) by mouth 3 times daily. 90 tablet 2 04/10/2023 07/07/2023 Discontinued (Therapy completed) 5 ml sodium chloride 9 mg/ml injection (20 sources) Start: 02-28-2025 End: 02-28-2025 10 mL, IntraVENous, Every 12 hours scheduled (2 times per day), First dose on Mon02/28/25 at 0900 Start: 02-28-2025 End: 02-28-2025 take 100 mL intravenously every hour as needed, then take 20 mL intravenously every hour as needed 5-250 mL/hr, IntraVENous, PRN, if patient receiving piggyback infusions and maintenance fluids are not ordered OR KVO fluids to protect IV site / prevent frequent line interruptions/ long duration, Starting on Mon02/28/25 at 0722, For piggyback infusion, administer at same rate as piggyback for a total of 25 mL. Enter 25 mL into dose field and piggyback rate into rate field of order. If piggyback is infusing at a rate less than 100 mL/hr, enter 25 mL into dose field and 100 mL/hr into rate field of order. For KVO fluids, enter rate of 20 mL/hr or less into rate field of order. Start: 02-28-2025 End: 02-28-2025 take 10 mL intravenously once as needed 10 mL, IntraVENous, PRN, line care, Starting on Mon02/28/25 at 0722, After every IV line use Start: 04-19-2024 End: 04-19-2024 500 mL, IntraVENous, at 1,00 0 mL/hr, Administer over 0.5 Hours, Once, On Mon04/19/24 at 0835, For 1 dose Start: 04-08-2024 End: 04-09-2024 Start: 04-08-2024 End: 04-09-2024 Start: 04-04-2023 End: 04-04-2023 sodium chloride 0.9 % infusi on Start: 04-04-2023 End: 04-04-2023 take 5-40 mL intravenously every twelve hours sodium chloride 0.9% (NS) flush 5-40 mL Start: 02-12-2023 End: 02-12-2023 sodium chloride 0.9 % bolus 500 mL Start: 02-11-2023 End: 02-14-2023 sodium chloride 0.9 % infusi on Start: 02-11-2023 End: 02-14-2023 sodium chloride 0.9% (NS) fl ush 5-40 mL Problems Active Problems Problem Classification Problem Date Documented Da te Episodic/Chronic Anxiety disorders (12 sources) Social phobia; Translations: [Generalized anxiety disorder] Onset: 4 Chronic Aortic; peripheral; and visceral artery aneurysms (20 sources) Aneurysm of ascending aorta; Translations: [Thoracic aortic aneurysm, without rupture] Onset: 2 10-26-2021 Chronic Calculus of urinary tract (9 sources) Calculus of kidney; Translations: [Ureteric stone] Onset: 2 Episodic Cancer of kidney and renal pelvis (20 sources) Malignant tumor of kidney; Translations: [Malignant neoplasm of right kidney, except renal pelvis] Onset: 4 04-24-2024 Chronic Cancer of kidney and renal pelvis (1 source) Personal history of other malignant neoplasm of kidney; Translations: [Personal history of malignant neoplasm of kidney] 07-08-2024 Episodic Chronic kidney disease (6 sources) Chronic kidney disease stage 3A ; Translations: [Stage 3a chronic kidney disease (HCC)] Onset: 5 08-22-2024 Chronic Chronic kidney disease (2 sources) Chronic kidney disease; Translations: [Chronic kidney disease, stage 3a (HCC)] Onset: 5 Chronic obstructive pulmonary disease and bronchiectasis (20 sources) Chronic obstructive pulmonary disease, unspecified; Translations: [Centrilobular emphysema] Onset: 2 Chronic Conduction disorders (20 sources) Right bundle branch block AND left anterior fascicular block; Translations: [Bifascicular block] Onset: 1 09-20-2021 Chronic Deficiency and other anemia (7 sources) Chronic anemia; Translations: [Anemia, unspecified] 07-07-2023 Episodic Diseases of mouth; excluding dental (1 source) Oral lesion; Translations: [Other lesions of oral mucosa] 06-20-2023 Episodic Disorders of lipid metabolism (20 sources) Mixed hyperlipidemia; Translations: [Mixed hyperlipidemia] Onset: 1 Chronic Diverticulosis and diverticulitis (2 sources) Diverticulosis of large intestine without perforation or abscess without bleeding; Translations: [Dvrtclos of lg int w/o perforation or abscess w/o bleeding] Onset: 2 Chronic Essential hypertension (20 sources) Essential hypertension; Translations: [Essential (primary) hypertension] Onset: 2 Chronic Gastrointestinal hemorrhage (7 sources) Rectal hemorrhage; Translations: [Hemorrhage of anus and rectum] Onset: 5 08-27-2024 Episodic Heart valve disorders (2 sources) Nonrheumatic aortic (valve) insufficiency; Translations: [Nonrheumatic aortic (valve) insufficiency] Onset: 2 Chronic Hemorrhoids (5 sources) Hemorrhoids; Translations: [Unspecified hemorrhoids] Onset: 5 01-20-2025 Episodic Hyperplasia of prostate (9 sources) Benign prostatic hyperplasia; Translations: [Benign prostatic hypertrophy without outflow obstruction] Onset: 2 Chronic Mood disorders (20 sources) Recurrent depression; Translations: [Major depressive disorder, recurrent, unspecified] Onset: 2 Chronic Other and ill-defined heart disease (2 sources) Cardiomegaly; Translations: [Cardiomegaly] Onset: 2 Chronic Other diseases of kidney and ureters (4 sources) Other specified disorders of kidney and ureter; Translations: [Other specified disorders of kidney and ureter] Onset: 2 Chronic Other diseases of kidney and ureters (4 sources) Disorder of kidney and/or ureter; Translations: [Other specified disorders of kidney and ureter] Chronic Other diseases of kidney and ureters (2 sources) Cyst of kidney, acquired; Translations: [Cyst of kidney, acquired] Onset: 2 Episodic Other diseases of kidney and ureters (2 sources) Disorder of kidney and ureter, unspecified; Translations: [Disorder of kidney and ureter, unspecified] Onset: 2 Episodic Other gastrointestinal disorders (1 source) Irregular bowel habits; Translations: [Other specified symptoms and signs involving the digestive system and abdomen] 01-20-2025 Episodic Other gastrointestinal disorders (2 sources) Other specified symptoms and signs involving the digestive system and abdomen; Translations: [Other specified symptoms and signs involving the digestive system and abdomen] Onset: 5 Episodic Other hereditary and degenerative nervous system conditions (2 sources) Restless legs; Translations: [Restless legs syndrome] Chronic Other hereditary and degenerative nervous system conditions (2 sources) Restless legs syndrome; Translations: [Restless legs syndrome] Onset: 2 Chronic Other hereditary and degenerative nervous system conditions (5 sources) Essential tremor; Translations: [Essential tremor] Onset: 5 Chronic Other hereditary and degenerative nervous system conditions (1 source) Coarse tremor; Translations: [Other specified forms of tremor] Chronic Other hereditary and degenerative nervous system conditions (1 source) Essential tremor; Translations: [Essential tremor] Onset: 5 Chronic Other injuries and conditions due to external causes (8 sources) Hematoma; Translations: [Other injury of unspecified body region, initial encounter] 04-24-2024 Episodic Other liver diseases (20 sources) Liver cyst; Translations: [Other specified diseases of liver] Onset: 1 09-21-2021 Chronic Other liver diseases (2 sources) Steatosis of liver; Translations: [Fatty liver] Chronic Other liver diseases (4 sources) Other specified diseases of liver; Translations: [Other specified diseases of liver] Onset: 2 Chronic Other liver diseases (2 sources) Lesion of liver; Translations: [Liver disease, unspecified] 02-07-2024 Chronic Other liver diseases (2 sources) Large liver; Translations: [Hepatomegaly] Episodic Other lower respiratory disease (1 source) Chronic cough; Translations: [Chronic cough] Episodic Other lower respiratory disease (3 sources) Nodule of lung; Translations: [Solitary pulmonary nodule] Episodic Other male genital disorders (6 sources) Swelling of scrotum ; Translations: [Other specified disorders of the male genital organs] 04-24-2024 Episodic Other nervous system disorders (2 sources) Tremor; Translations: [Tremor, unspecified] 04-10-2023 Episodic Other nervous system disorders (2 sources) Postoperative pain ; Translations: [Other acute postprocedural pain] 04-09-2024 Episodic Other non-traumatic joint disorders (2 sources) Hand joint pain; Translations: [Pain in joints of unspecified hand] 12-26-2023 Episodic Other nutritional; endocrine; and metabolic disorders (1 source) Loss of appetite; Translations: [Anorexia] 01-20-2025 Episodic Other nutritional; endocrine; and metabolic disorders (2 sources) Anorexia; Translations: [Anorexia] Onset: 5 Episodic Other screening for suspected conditions (not mental disorders or infectious disease) (20 sources) Electrocardiogram abnormal; Translations: [Abnormal electrocardiogram [ECG] [EKG]] Onset: 1 09-15-2021 Episodic Other skin disorders (1 source) Skin lesion; Translations: [Disorder of the skin and subcutaneous tissue, unspecified] 10-24-2023 Episodic Other upper respiratory disease (1 source) Lesion of nose; Translations: [Other specified disorders of nose and nasal sinuses] 06-20-2023 Episodic Parkinson`s disease (2 sources) Parkinson`s disease; Translations: [Parkinson's disease without dyskinesia, without mention of fluctuations (HCC)] Onset: 5 Residual codes; unclassified (12 sources) REM sleep behavior disorder; Translations: [REM sleep behavior disorder] Onset: 5 Chronic Residual codes; unclassified (1 source) Obstructive sleep apnea syndrome; Translations: [Obstructive sleep apnea (adult) (pediatric)] Chronic Residual codes; unclassified (1 source) REM sleep behavior disorder; Translations: [REM sleep behavior disorder] Onset: 5 Chronic Residual codes; unclassified (1 source) Sleep disorder; Translations: [Other sleep disorders] Episodic Residual codes; unclassified (1 source) Tobacco user; Translations: [Tobacco use] Episodic Residual codes; unclassified (2 sources) History of nephrectomy; Translations: [Acquired absence of kidney] 04-19-2024 Episodic Residual codes; unclassified (1 source) Hepatitis B screening required; Translations: [Need for hepatitis B screening test] Rheumatoid arthritis and related disease (8 sources) Rheumatoid nodule, unspecified site; Translations: [Rheumatoid arthritis of multiple joints] Onset: 4 02-24-2025 Chronic Spondylosis; intervertebral disc disorders; other back problems (1 source) Degeneration of thoracic intervertebral disc; Translations: [Other intervertebral disc degeneration, thoracic region] Chronic Spondylosis; intervertebral disc disorders; other back problems (12 sources) Chronic thoracic back pain; Translations: [Pain in thoracic spine] Episodic Syncope (4 sources) Syncope and collapse; Translations: [Syncope and collapse] Onset: 2 Episodic Unclassified (5 sources) Parkinson's disease; Translations: [Parkinson's disease without dyskinesia or fluctuating manifestations] 09-20-2023 Chronic Unclassified (2 sources) Patient encounter status; Translations: [Encounter for screening for cardiovascular disorders] Unclassified (1 source) Aneurysm of the ascending aorta, without rupture (HCC); Translations: [Aneurysm of the ascending aorta, without rupture (HCC)] Onset: 2 Past or Other Problems Problem Classification Problem Date Documented Date Episodic/Chronic Complications of surgical procedures or medical care (4 sources) Hemorrhage following skin surgery; Translations: [Postprocedural hemorrhage of skin and subcutaneous tissue following other procedure] Onset: 04-14-2024 04-14-2024 Episodic Conditions associated with dizziness or vertigo (20 sources) Dizziness and giddiness; Translations: [Dizziness and giddiness] Onset: 06-23-2022 Episodic Deficiency and other anemia (3 sources) Anemia; Translations: [Anemia, unspecified] Onset: 04-30-2024 02-28-2025 Episodic Deficiency and other anemia (1 source) Anemia, unspecified; Translations: [Anemia, unspecified] Onset: 04-30-2024 Episodic Diabetes mellitus with complications (20 sources) Secondary diabetes mellitus; Translations: [Diabetes mellitus due to underlying condition with other diabetic neurological complication] Onset: 03-07-2023 Resolved: 06-20-2023 03-07-2023 Chronic Fluid and electrolyte disorders (20 sources) Hyponatremia; Translations: [Hypo-osmolality and hyponatremia] Onset: 02-11-2023 02-11-2023 Episodic Genitourinary symptoms and ill-defined conditions (2 sources) Frequency of micturition; Translations: [Frequency of micturition] Onset: 08-22-2024 Episodic Mood disorders (20 sources) Mood disorders Onset: 05-27-2022 Resolved: 08-29-2023 08-31-2022 Other circulatory disease (20 sources) Orthostatic hypotension; Translations: [Orthostatic hypotension] Onset: 09-20-2021 09-20-2021 Episodic Other diseases of kidney and ureters (20 sources) Renal mass; Translations: [Other specified disorders of kidney and ureter] Onset: 04-05-2024 Resolved: 04-24-2024 Chronic Other diseases of kidney and ureters (20 sources) Cyst of kidney; Translations: [Cyst of kidney, acquired] Onset: 01-26-2022 01-26-2022 Episodic Other diseases of kidney and ureters (2 sources) Hypertrophy of kidney; Translations: [Hypertrophy of kidney] Onset: 03-18-2022 Episodic Other hematologic conditions (20 sources) Raised cardiac enzyme or marker; Translations: [Other specified abnormalities of plasma proteins] Onset: 02-11-2023 02-11-2023 Episodic Other injuries and conditions due to external causes (2 sources) Other injury of unspecified body region, initial encounter; Translations: [Other injury of unspecified body region, initial encounter] Onset: 07-25-2024 Episodic Other lower respiratory disease (3 sources) Solitary nodule of lung; Translations: [Solitary pulmonary nodule] Onset: 05-16-2022 Episodic Other lower respiratory disease (2 sources) Solitary pulmonary nodule; Translations: [Solitary pulmonary nodule] Onset: 05-16-2022 Episodic Other male genital disorders (2 sources) Other specified disorders of the male genital organs; Translations: [Other specified disorders of the male genital organs] Onset: 04-24-2024 Episodic Other nervous system disorders (2 sources) Other acute postprocedural pain; Translations: [Other acute postprocedural pain] Onset: 04-08-2024 Episodic Residual codes; unclassified (2 sources) Tobacco use and exposure - finding; Translations: [Tobacco use] Onset: 10-18-2021 Episodic Residual codes; unclassified (1 source) Tobacco use; Translations: [Tobacco use] Onset: 10-18-2021 Episodic Residual codes; unclassified (2 sources) Acquired absence of kidney; Translations: [Acquired absence of kidney] Onset: 04-19-2024 Episodic Screening and history of mental health and substance abuse codes (12 sources) H/O: drug dependency; Translations: [Personal history of nicotine dependence] Onset: 05-16-2022 Episodic Septicemia (except in labor) (20 sources) Sepsis due to Gram negative bacteria ; Translations: [Gram-negative sepsis, unspecified] Onset: 02-11-2023 02-11-2023 Episodic Superficial injury; contusion (4 sources) Hematoma of abdominal wall; Translations: [Contusion of abdominal wall, initial encounter] Onset: 04-19-2024 04-19-2024 Episodic Unclassified (1 source) Aneurysm of the ascending aorta, without rupture (HCC); Translations: [Aneurysm of the ascending aorta, without rupture (HCC)] Onset: 09-16-2024 Urinary tract infections (20 sources) Acute cystitis; Translations: [Acute cystitis without hematuria] Onset: 02-11-2023 02-11-2023 Episodic Results Test Name Value Interpretation Reference Range Facility 36on 03-25-[address] Quintero is more a urologist. Web Marketing Analyst does this kidney specifically so we will continue to keep an eye on the kidney function and lets follow-up in 3 months but if it gets any worse would probably recommend specifically seeing a round cutter operator due to your history. Normal [facility] 36 A1c is good nondiabetic. Cholesterol is mildly elevated low-fat diet and exercise PSA is within normal limits kidney function remains mildly elevated but stable. Confirm whether or not patient is seeing round cutter operator if so please send a copy try to stay away from ibuprofen Danny please confirm the name of the round cutter operator that he does see Normal [facility] Office Visiton 02-24-2025 Follow-up visit [id number] Nery Rodriguez Zacarias 1950 M Date Provider Department Center 02/24/2025 [id number] COSTA [facility] Family History Problem Relation Age of Onset Parkinsonism Mother High Blood Pressure Mother Depression Mother Hearing loss Mother Fainting Mother Hypertension Mother Mental illness Mother Heart disease Father Bipolar disorder Sister Mental illness Sister Family Status - Relation Status Age at Mother Alive Father 80 Sister Alive Other Notes: Essential Tremor Level of Service:19141 [place] OFFICE/OUTPATIENT ESTABLISHED MOD MDM 30 MIN Reason for Visit and Comments: Follow-up [[id number]] Normal [facility] Progress Noteon 02-24-2025 Progress Note [facility] - [address] [facility] [address] Dept: [phone] Dept Loc: [phone] Reason for Visit: Follow-up Assessment and Plan 1. Chronic anemia chronic stable continue to monitor blood counts. - Hemoglobin A1c - CBC auto differential - Comprehensive metabolic panel - Lipid panel 2. Essential hypertension chronic stable continue propranolol continue telmisartan. - Hemoglobin A1c - CBC auto differential - Comprehensive metabolic panel - Lipid panel 3. Recurrent major depressive disorder, in full remission ([facility]) patient sees psychiatry on clonazepam psychiatry following on Paxil on Klonopin - Hemoglobin A1c - CBC auto differential - Comprehensive metabolic panel - Lipid panel 4. Screening for diabetes mellitus - Hemoglobin A1c - CBC auto differential - Comprehensive metabolic panel - Lipid panel 5. Rheumatoid arthritis without rheumatoid factor, multiple sites rheumatology was started following patient currently treated by rheumatology ([facility]) - Hemoglobin A1c - CBC auto differential - Comprehensive metabolic panel - Lipid panel 6. Stage 3a chronic kidney disease ([facility]) continue to monitor kidney function. Urology following history of renal nga cancer. This is a chronic stable issue patient had right total nephrectomy - Hemoglobin A1c - CBC auto differential - Comprehensive metabolic panel - Lipid panel 7. Renal cancer, right (HCC) his right kidney nephrectomy. Will continue to monitor his kidney function continue to follow-up with urologist. - Hemoglobin A1c - CBC auto differential - Comprehensive metabolic panel - Lipid panel 8. Pulmonary emphysema, unspecified emphysema type (HCC) chronic stable following CT CAT scan done in May recommendation repeat in 12 months. 9. Screening PSA (prostate specific antigen) - PSA Screening current treatment plan is effective, no change in therapy, orders and follow up as documented in EMR, lab results reviewed with patient, repeat labs ordered prior to next appointment, reviewed compliance with lifestyle measures, reviewed diet, exercise and weight control, reviewed medications and side effects in detail Return visit in 3 months. Subjective HPI this is a 74-year-old male he has a history of renal cell carcinoma with a nephrectomy. He sees Dr. Quintero for his checkups. He has not had any issues he is denying any chest pain is a history of high blood pressure no headaches no blurred vision today feeling well. Review of Systems Allergies Allergen Reactions Pollen Extract Seasonal allergies. Ropinirole Constipation and sleepiness Current Outpatient Medications Medication Sig Dispense Refill clonazePAM (KlonoPIN) 0.5 MG tablet Take 0.5 tablets (0.25 mg) by mouth Daily as needed for anxiety. 8 tablet 0 loratadine (Claritin) 10 MG tablet TAKE 1 TABLET (10 MG) BY MOUTH DAILY. 90 tablet 1 PARoxetine (Paxil) 10 MG tablet Take 1 tablet (10 mg) by mouth every morning. 90 tablet 3 polyethylene glycol, PEG, 3350 (MiraLax) 17 GM/SCOOP powder Take 17 g by mouth daily. 510 g 3 tamsulosin (Flomax) 0.4 MG 24 hr capsule TAKE 1 CAPSULE BY MOUTH EVERY DAY 90 capsule 1 telmisartan (MIcarDIS) 20 MG tablet TAKE 1 TABLET BY MOUTH EVERY DAY 90 tablet 1 carbidopa-levodopa (Sinemet) 25-100 MG tablet Take 1 tablet by mouth 3 times daily. 270 tablet 3 gabapentin (Neurontin) 400 MG capsule Take 3 capsules (1,200 mg) by mouth Nightly. Do not start before May 15, 2024. 270 capsule 3 propranolol LA (Inderal LA) 60 MG 24 hr capsule Take 1 capsule (60 mg) by mouth daily. Do not crush, chew, or split. 90 capsule 3 No current facility-administered medications for this visit. 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 Orthostatic hypotension MDD (major depressive disorder) Dyslipidemia Ascending aortic aneurysm (HCC) Renal cyst, right Essential hypertension Gram-negative sepsis, unspecified (HCC) Lightheadedness Acute cystitis without hematuria Elevated troponin Hyponatremia Pulmonary emphysema, unspecified emphysema type (HCC) Renal cancer, right (HCC) Rheumatoid arthritis without rheumatoid factor, multiple sites (HCC) Stage 3a chronic kidney disease (HCC) Past Medical History: Diagnosis Date 2018 novel coronavirus disease (COVID-19) 02/18/2023 Abnormal EKG Alcoholism ([facility]/HCC) (HCC) 1989 Allergic 01/15/1992 Anxiety Arthritis 02/13/2023 Benign prostatic hyperplasia Not sure Cancer ([facility]/HCC) (HCC) 04/08/2024 Emphysema lung (HCC) Enlarged prostate Erectile dysfunction 12 yea Hyperlipidemia Hypertension Kidney stone 02/13/2023 Parkinson's disease (HCC) REM sleep behavior disorder Sepsis (HCC) Tremor Urinary incontinence Controlled by medication Social Hi (more content not included)... [facility] 36on 02-18-2025 36 Pt is scheduled on 09/03/[address] Gibbons Called pt to offer sooner date. Pt accept 02/28/[address] Ruba fleming the arrival time of 6:00 am at [facility] Spoke w Angelica and have case moved EPIC schedule updated Order submitted Open Case request submitted Case # [id number] Rx called into pharmacy @ Endo packet mailed to patient Prep sent via [employer] if pt acct active Pt is aware they will need a team otr truck driver to take them home from procedure. Must be family member or friend. They cannot use any ride programs. Ex: Uber, Lyft, SCAT, bus, etc...) [facility] [id number] 02-17-2025 [id number] Patient scheduled on 09/03/25 @ 2:15pm with the arrival time of 1:15pm with Dr. Gibbons at [address] [place] [address] EPIC schedule updated Order submitted Open Case request submitted Case # [id number] Endo packet mailed to patient Prep sent via [employer] if pt acct active Pt is aware they will need a team otr truck driver to take them home from procedure. Must be family member or friend. They cannot use any ride programs. Ex: Uber, Lyft, SCAT, bus, etc...) [facility] 36on 01-24-2025 36 Spoke with the pt, mitchel t wants a call back on 01/28/2025 [facility] 36 ----- Message from MELISSA Shea CNP sent at 01/20/2025 8:39 AM EDT ----- Please schedule patient for EGD and colonoscopy-[place] location. Please schedule as soon as able. Thank you. [facility] Progress Noteon 01-24-2025 Progress Note Patient was identified and seen today via Telehealth by agreement and consent. I used the following Telehealth technology: Audio and video capabilities. Patient location: Patient Location: Home. This patient encounter is appropriate and reasonable under the circumstances: Behavioral Health . The patient has been advised of the potential risks and limitations of this mode of treatment (including but not limited to the absence of in-person examination) and has agreed to be treated in a remote fashion in spite of them. Any and all of the patient's/patient's family's questions on this issue have been answered and I have made no promises or guarantees to the patient. The patient has also been advised to contact this office for worsening conditions or problems, and seek emergency medical treatment and/or call 911 if the patient deems either necessary. The patient stated that they are currently in the [facility]. If the patient is a minor, permission has been obtained by the parent or guardian for the patient to receive medical care at this visit. OUTPATIENT PSYCHIATRIC PROGRESS NOTE DATE: 01/24/25 TIME IN: 11:00 AM TIME OUT: 11:13 AM Nery Rodriguez is a 74 y.o.male CHIEF COMPLAINT: anxiety HISTORY OF PRESENTING ILLNESS: The patient is being seen in follow up for depression and anxiety. Today, he states that his symptoms have remained stable over the past several months. He denies worsening anxiety or depression over this time. He is following with GI for decreased appetite and constipation and neurology for parkinson's and tremor. His is doing better but still struggling to drive. He continues to take Klonopin sparingly. He endorses occasional concern for word finding difficulties which he plans to discuss further at his upcoming wellness visit as well. He denies other changes in cognitive or daily functioning. Overall, he is coping well and his mood remains stable. His affect appears bright and he is future oriented. He denies other side effects or acute concerns today. Last OV 04/23/24 BRIEF PSYCHIATRIC ROS: Mood: euthymic Sleep: fair Appetite: decreased Energy: fair Psychosis: denies Beckie: denies Suicidal ideation: denies Homicidal ideation: denies RECENT SUBSTANCE USE HISTORY: Alcohol: sober for over 30 years, h/o problematic use Tobacco: former smoker Marijuana: denies Other illicit substances: denies PAST PSYCHIATRIC HISTORY: Reviewed with patient, see HPI for updates SOCIAL HISTORY: Reviewed with patient, see HPI for updates FAMILY HISTORY: Reviewed with patient, see HPI for updates MEDICAL HISTORY: Reviewed with patient, see HPI for updates CURRENT MEDICATIONS: Current Outpatient Medications on File Prior to Visit Medication Sig Dispense Refill carbidopa-levodopa (Sinemet) 25-100 MG tablet Take 1 tablet by mouth 3 times daily. 270 tablet 3 clonazePAM (KlonoPIN) 0.5 MG tablet Take 0.5 tablets (0.25 mg) by mouth Daily as needed for anxiety. Do not start before June 20, 2024. 8 tablet 0 cyclobenzaprine (Flexeril) 10 MG tablet Take 1 tablet (10 mg) by mouth Nightly as needed for muscle spasms. 30 tablet 1 gabapentin (Neurontin) 400 MG capsule Take 3 capsules (1,200 mg) by mouth Nightly. Do not start before May 15, 2024. 270 capsule 3 hydrocortisone (Anusol-HC) 25 MG suppository Insert 1 suppository (25 mg) into the rectum 2 times daily for 10 days. 20 suppository 0 loratadine (Claritin) 10 MG tablet TAKE 1 TABLET (10 MG) BY MOUTH DAILY. 90 tablet 1 PARoxetine (Paxil) 10 MG tablet Take 1 tablet (10 mg) by mouth every morning. 90 tablet 3 [] polyethylene glycol (GaviLyte-G) 236 g solution Please take as directed by GI office for colonoscopy prep. 4000 mL 0 polyethylene glycol, PEG, 3350 (MiraLax) 17 GM/SCOOP powder Take 17 g by mouth daily. 510 g 3 propranolol LA (Inderal LA) 60 MG 24 hr capsule Take 1 capsule (60 mg) by mouth daily. Do not crush, chew, or split. 90 capsule 3 tamsulosin (Flomax) 0.4 MG 24 hr capsule TAKE 1 CAPSULE BY MOUTH EVERY DAY 90 capsule 1 telmisartan (MIcarDIS) 20 MG tablet TAKE 1 TABLET BY MOUTH EVERY DAY 90 tablet 1 No current facility-administered medications on file prior to visit. MEDICAL ROS: In the review of Constitutional, HEENT, Endocrine, Dermatologic, Cardiovascular, Respiratory, Gastrointestinal, Genitourinary, Hematologic, Musculoskeletal, Neurologic were reviewed and revealed tremor, constipation, decreased appetite Remainder of review of systems is negative except where described elsewhere in this note. BMI: There is no height or weight on file to calculate BMI. VITALS: There were no vitals filed for this visit. MENTAL STATUS EXAM: Level of consciousness: within normal limits and awake Appearance: well-appearing, in chair, fair grooming, and fair hygiene Behavior/Motor: no abnormalities noted. There are no abnormal involuntary movements. Gait is not observed. Att (more content not included)... [facility] 37on 01-20-2025 37 --Please call office with any questions or concerns! [phone] --Schedule EGD (upper endoscopy) and colonoscopy for further evaluation of the symptoms. [facility]. They will contact you from the office to schedule this procedure. --A prescription for GoLytely was sent to your pharmacy. This is the bowel prep for your colonoscopy. Please pick this up from the pharmacy and keep on hand. They will go over prep instructions when you are scheduled. --Begin medication: Miralax daily for constipation This has been sent to your pharmacy. --anusol suppositories, two times daily for 10 days for hemorrhoids This has also been sent to your pharmacy. --Avoid nonsteroidal anti-inflammatory (NSAID) medications such as ibuprofen (Advil), naproxen (Aleve), etc. These can contribute to abdominal pain and ulcers. Take Tylenol (acetaminophen) instead if needed for pain by following the instructions on the bottle. --Please see handout provided regarding additional recommendations for the symptoms including when to seek emergency care or further treatment. --Follow-up with PCP, and in GI clinic in about 2 month following the above evaluation and recommendations. This will be scheduled when your procedure is scheduled. [facility] Office Visiton 01-20-2025 Follow-up visit [id number] Nery Rodriguez 1950 [facility] Provider Department Center 01/20/2025 [id number] [facility] [place] None Family History Problem Relation Age of Onset Parkinsonism Mother High Blood Pressure Mother Depression Mother Hearing loss Mother Fainting Mother Hypertension Mother Mental illness Mother Heart disease Father Bipolar disorder Sister Mental illness Sister Family Status - Relation Status Age at Mother Alive Father 80 Sister Alive Other Notes: Essential Tremor Level of Service:51100 [place] OFFICE/OUTPATIENT NEW MODERATE MDM 45 MINUTES Reason for Visit and Comments: New Patient [542] - Pt presents for evaluation of rectal bleeding, seen by KAREN 2020Glendy 2019, pt has long history of rectal bleeding, no pain w/BM's (does have pain at times with hemorrhoid flare-up), last colonoscopy was about 6 or 7 years ago (done in [place]) Normal [facility] Progress Noteon 01-20-2025 Progress Note [facility] GA[facility] - [address] [address] Dept: [phone] Dept Loc: [phone] Visit type: New Reason for Visit: New Patient (Pt presents for evaluation of rectal bleeding, seen by KAREN 2020Glendy 2019, pt has long history of rectal bleeding, no pain w/BM's (does have pain at times with hemorrhoid flare-up), last colonoscopy was about 6 or 7 years ago (done in [place])/) Assessment and Plan Problem List Items Addressed This Visit None Visit Diagnoses Loss of appetite - Primary Rectal bleeding Relevant Medications polyethylene glycol (GaviLyte-G) 236 g solution polyethylene glycol, PEG, 3350 (MiraLax) 17 GM/SCOOP powder Irregular bowel habits Relevant Medications polyethylene glycol, PEG, 3350 (MiraLax) 17 GM/SCOOP powder Hemorrhoids, unspecified hemorrhoid type Relevant Medications hydrocortisone (Anusol-HC) 25 MG suppository Chronic anemia 74 year old male referred by Dr. Costa, re: rectal bleeding. Patient reports intermittent rectal bleeding ongoing for years-previously attributed to hemorrhoids. Bleeding has changed over the past 9 months. Bleeding is with every bowel movement now, followed by stool leakage and pink tinged drainage. Has constipation at baseline-uses colace three times per week. Has BM when he takes colace. Notes if he uses daily, leakage worsens. Last colon[place] ~ [place]. Also endorses decreased appetite over the past year. Has chronic anemia, most recent hgb 12.9/hct 37.4 (08/26/2024). No prior EGD. --schedule colonoscopy for further evaluation of rectal bleeding and irregular bowel movements, r/o underlying pathology --start Miralax daily --Anusol suppository BID X 10 days for hemorrhoids --schedule EGD along with colonoscopy due to loss of appetite --consider referral to colorectal surgery for further management of hemorrhoids pending results/response to above --EDU printed Advised patient to call office with new or worsening symptoms, questions, or concerns. Patient verbalized understanding and agreement of plan. Follow up in 2 months (on 03/22/2025), or if symptoms worsen or fail to improve, for colonoscopy follow-up . Subjective HPI Patient is referred by Dr. Costa, re: rectal bleeding. This patient is new to me however has been evaluated by another provider from this practice. Last OV was with Avtar Galicia on 09/21/2021. Patient was last evaluated regarding hepatic cyst. He has since established with Dr. Wick regarding hepatic cyst-plan for observation at this time. 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 Patient reports intermittent rectal bleeding ongoing for years. Initially felt this was related to hemorrhoids that he was able to manage. Uses preparation H OTC. For the past 9 months, has been having increased bleeding and stool leakage. Now having bleeding with every BM. Blood is bright red to pink. Will have leakage of stool and pink tinged drainage following BM. Has to line underwear with TP.Feels he does not have sensation/urge to have BM anymore. Using colace three times per week. Has BM when he uses. If he takes daily, leakage is worse. For the past year, has had decreased appetite. Weight stable. Denies nausea and vomiting. Prior colonoscopy: at least 6 to 7 years ago in [facility] Prior EGD: none Prior abdominal surgeries: right nephrectomy Family history of colon cancer: none NSAID use: none OAC: none Supplemental oxygen use: none Tobacco use: none Uses Zyn pouches EtOH use: none Illicit drug use: none Review of Systems Constitutional: Positive for appetite change. Negative for unexpected weight change. HENT: Negative for trouble swallowing and voice change. Respiratory: Negative for shortness of breath. Cardiovascular: Negative for chest pain. Gastrointestinal: Positive for anal bleeding and constipation. Negative for abdominal distention, abdominal pain, blood in stool, diarrhea, nausea, rectal pain and vomiting. Genitourinary: Negative for difficulty urinating. Skin: Negative for color change. Neurological: Positive for tremors. Negative for weakness. Allergies Allergen Reactions Pollen Extract Seasonal allergies. Ropinirole Constipation and sleepiness Current Outpatient Medications: carbidopa-levodopa (Sinemet) 25-100 MG tablet, Take 1 tablet by mouth 3 times daily., Disp: 270 tablet, Rfl: 3 loratadine (Claritin) 10 MG tablet, TAKE 1 TABLET (10 MG) BY MOUTH DAILY., Disp: 90 tablet, Rfl: 1 PARoxetine (Paxil) 10 MG tablet, Take 1 tablet (10 mg) by mouth every morning., Disp: 90 tablet, Rfl: 3 propranolol LA (Inderal LA) 60 MG 24 hr capsule, Take 1 capsule (60 mg) by mouth daily. Do not crush, chew, o (more content not included)... Normal [facility] 36on 12-05-2024 36 Recent Visits Date Type Provider Dept 08/27/24 Office Visit Shawanda Costa MD [facility] 04/30/24 Office Visit Shawanda Costa MD [facility] 12/26/23 Office Visit Shawanda Costa MD [facility] Showing recent visits within past 365 days and meeting all other requirements Future Appointments Date Type Provider Dept 02/24/25 Appointment Shawanda Costa MD [facility] Showing future appointments within next 90 days and meeting all other requirements Requested Prescriptions Pending Prescriptions Disp Refills telmisartan (MIcarDIS) 20 MG tablet [Pharmacy Med Name: TELMISARTAN 20 MG TABLET] 90 tablet 1 Sig: TAKE 1 TABLET BY MOUTH EVERY DAY Provider: Shawanda Costa MD Verified pharmacy: yes Verified day(s) supplied: yes Verified refill(s) needed (previous prescription showing no refills in chart): Yes Have you received any controlled medications from any other provider? N/A Overdue for visit: No If yes - patient scheduled? N/A Most recent labs completed in chart? N/A None Normal [facility] 36on 11-13-2024 36 Recent Visits Date Type Provider Dept 08/27/24 Office Visit Shawanda Costa MD [facility] 04/30/24 Office Visit Shawanda Costa MD [facility] 12/26/23 Office Visit Shawanda Costa MD [facility] Showing recent visits within past 365 days and meeting all other requirements Future Appointments No visits were found meeting these conditions. Showing future appointments within next 90 days and meeting all other requirements Requested Prescriptions Pending Prescriptions Disp Refills loratadine (Claritin) 10 MG tablet [Pharmacy Med Name: LORATADINE 10 MG TABLET] 90 tablet 1 Sig: TAKE 1 TABLET (10 MG) BY MOUTH DAILY. Provider: Shawanda Costa MD Verified pharmacy: yes Verified day(s) supplied: yes Verified refill(s) needed (previous prescription showing no refills in chart): Yes Have you received any controlled medications from any other provider? No Overdue for visit: No If yes - patient scheduled? Yes Most recent labs completed in chart? N/A None Normal [facility] 36 Last OV:08/27/24 Scheduled:02/24/25 [facility] Office Visiton 11-11-2024 Follow-up visit [id number] Nery Rodriguez 1950 M Date Provider Department Center 11/11/2024 [id number][facility][id number] [facility] None Family History Problem Relation Age of Onset Parkinsonism Mother High Blood Pressure Mother Depression Mother Hearing loss Mother Fainting Mother Hypertension Mother Mental illness Mother Heart disease Father Bipolar disorder Sister Mental illness Sister Family Status - Relation Status Age at Mother Alive Father 80 Sister Alive Other Notes: Essential Tremor Level of Service:66549 [place] OFFICE/OUTPATIENT ESTABLISHED LOW MDM 20 MIN Reason for Visit and Comments: Follow-up [256905] Memory Loss [66] Normal [facility] Progress Noteon 11-11-2024 Progress Note [facility] [address] [place] [address] [facility] [address] Dept: [phone] Dept Loc: [phone] Visit type: Established Patient Reason for Visit: Follow-up and Memory Loss Assessment and Plan 1. Essential tremor 2. REM behavioral disorder 3. Parkinson's disease without dyskinesia or fluctuating manifestations (HCC) - carbidopa-levodopa (Sinemet) 25-100 MG tablet; Take 1 tablet by mouth 3 times daily., Starting 11/11/2024, Until 02/09/2025, Normal Subjective HPI: He denies REM sleep behavior disorder and is not acting out dreams or being restless during the night. Gabapentin is working. He reports still has tremor. Mostly if he has to try to do fine, little things with his fingers flexed. No falls. He is overall doing well. He notices head tremor the most. REVIEW OF SYSTEMS: Review of Systems Constitutional: Negative for appetite change, chills, diaphoresis, fatigue, fever and unexpected weight change. HENT: Negative for dental problem and mouth sores. Eyes: Negative for discharge and itching. Respiratory: Negative for chest tightness and shortness of breath. Cardiovascular: Negative for chest pain, palpitations and leg swelling. Gastrointestinal: Negative for abdominal pain, nausea, rectal pain and vomiting. Endocrine: Negative for polydipsia, polyphagia and polyuria. Genitourinary: Negative for decreased urine volume, flank pain and genital sores. Musculoskeletal: Positive for back pain. Negative for arthralgias and neck pain. Skin: Negative for color change. Allergic/Immunologic: Negative for food allergies and immunocompromised state. Neurological: Positive for tremors. Negative for dizziness, syncope, weakness, light-headedness and headaches. Hematological: Negative for adenopathy. Does not bruise/bleed easily. Psychiatric/Behaviora l: Negative for agitation, behavioral problems, confusion, decreased concentration, sleep disturbance and suicidal ideas. Allergies Allergen Reactions Pollen Extract Seasonal allergies. Ropinirole Constipation and sleepiness Current Outpatient Medications: clonazePAM (KlonoPIN) 0.5 MG tablet, Take 0.5 tablets (0.25 mg) by mouth Daily as needed for anxiety. Do not start before June 20, 2024., Disp: 8 tablet, Rfl: 0 cyclobenzaprine (Flexeril) 10 MG tablet, Take 1 tablet (10 mg) by mouth Nightly as needed for muscle spasms., Disp: 30 tablet, Rfl: 1 gabapentin (Neurontin) 400 MG capsule, Take 3 capsules (1,200 mg) by mouth Nightly. Do not start before May 15, 2024., Disp: 270 capsule, Rfl: 3 loratadine (Claritin) 10 MG tablet, Take 1 tablet (10 mg) by mouth daily., Disp: 90 tablet, Rfl: 1 PARoxetine (Paxil) 10 MG tablet, Take 1 tablet (10 mg) by mouth every morning., Disp: 90 tablet, Rfl: 3 tamsulosin (Flomax) 0.4 MG 24 hr capsule, Take 1 capsule (0.4 mg) by mouth daily., Disp: 90 capsule, Rfl: 1 telmisartan (MIcarDIS) 20 MG tablet, Take 1 tablet (20 mg) by mouth daily., Disp: 90 tablet, Rfl: 1 carbidopa-levodopa (Sinemet) 25-100 MG tablet, Take 1 tablet by mouth 3 times daily., Disp: 270 tablet, Rfl: 3 propranolol LA (Inderal LA) 60 MG 24 hr capsule, Take 1 capsule (60 mg) by mouth daily. Do not crush, chew, or split., Disp: 90 capsule, Rfl: 3 Past Medical History: Diagnosis Date 2019 novel coronavirus disease (COVID-19) 02/18/2023 Abnormal EKG Alcoholism ([facility]) ([facility]) 1989 Allergic 01/15/1992 Anxiety Arthritis 02/13/2023 Benign prostatic hyperplasia Not sure Cancer ([facility]) ([facility]) 04/08/2024 Emphysema lung ([facility]) Enlarged prostate Erectile dysfunction 12 yea Hyperlipidemia Hypertension Kidney stone 02/13/2023 Parkinson's disease ([facility]) REM sleep behavior disorder Sepsis ([facility]) Tremor Urinary incontinence Controlled by medication Social History Tobacco Use Smoking status: Former Current packs/day: 0.00 Average packs/day: 1 pack/day for 25.0 years (25.0 ttl pk-yrs) Types: Cigarettes Start date: 11/26/1984 Quit date: 11/28/2008 Years since quittin.9 Smokeless tobacco: Never Tobacco comments: Current, daily use of nicotene pouches Substance Use Topics Alcohol use: Not Currently Past Surgical History: Procedure Laterality Date CYST REMOVAL 1970 Tailbone cyst CYSTOSCOPY 02/12/2023 C&P with stent KIDNEY STONE SURGERY 03/2023 KIDNEY SURGERY 02/15/2023 NEPHRECTOMY Right 04/08/2024 ROBOTIC RIGHT RADICAL NEPHRECTOMY - Right Family History Problem Relation Name Age of Onset Parkinsonism Mother Juhi Rodriguez High Blood Pressure Mother Juhi Rodriguez Depression Mother Juhi Rodriguez Hearing loss Mother Juhi Rodriguez Fainting Mother Juhi Rodriguez Hypertension Mother Juhi Rodriguez Mental illness Mother Juhi Rodriguez Heart disease Father Nery Rodriguez Sr. Bipolar disorder Sister Amie Mental illness Sister mAie Objective Vitals: BP 114/73 (BP Location: Left arm, Patient Positi (more content not included)... Normal [facility] Progress Noteon 09-30-2024 Progress Note Patient was identified and seen today via Telehealth by agreement and consent. I used the following Telehealth technology: Audio and video capabilities. Patient location: Patient Location: Home. This patient encounter is appropriate and reasonable under the circumstances: Behavioral Health . The patient has been advised of the potential risks and limitations of this mode of treatment (including but not limited to the absence of in-person examination) and has agreed to be treated in a remote fashion in spite of them. Any and all of the patient's/patient's family's questions on this issue have been answered and I have made no promises or guarantees to the patient. The patient has also been advised to contact this office for worsening conditions or problems, and seek emergency medical treatment and/or call 911 if the patient deems either necessary. The patient stated that they are currently in the [facility]. If the patient is a minor, permission has been obtained by the parent or guardian for the patient to receive medical care at this visit. OUTPATIENT PSYCHIATRIC PROGRESS NOTE DATE: 09/30/24 TIME IN: 10:22 AM TIME OUT: 10:33 AM Nery Rodriguez is a 74 y.o.male CHIEF COMPLAINT: okay HISTORY OF PRESENTING ILLNESS: The patient is being seen in follow up for depression and anxiety. Today, he states that his symptoms have remained stable over the past several months. He denies worsening symptoms of depression and notes two instances of generalized anxiety which he attributes to his 's health status. She is now home from the nursing facility and has more recently become more independent with toileting which has been helpful. He has also started to watch his grandchild twice a week. He continues to take Klonopin sparingly and remains in good physical health. He denies recent panic attacks. Overall, he is coping well and his mood remains stable. His affect appears bright and he is future oriented. He denies other side effects or acute concerns today. BRIEF PSYCHIATRIC ROS: Mood: euthymic Sleep: fair Appetite: decreased but still fair Energy: fair Psychosis: denies Beckie: denies Suicidal ideation: denies Homicidal ideation: denies RECENT SUBSTANCE USE HISTORY: Alcohol: sober for over 30 years, h/o problematic use Tobacco: former smoker Marijuana: denies Other illicit substances: denies PAST PSYCHIATRIC HISTORY: Reviewed with patient, see HPI for updates SOCIAL HISTORY: Reviewed with patient, see HPI for updates FAMILY HISTORY: Reviewed with patient, see HPI for updates MEDICAL HISTORY: Reviewed with patient, see HPI for updates CURRENT MEDICATIONS: Current Outpatient Medications on File Prior to Visit Medication Sig Dispense Refill carbidopa-levodopa (Sinemet) 25-100 MG tablet Take 1 tablet by mouth 3 times daily. 270 tablet 1 clonazePAM (KlonoPIN) 0.5 MG tablet Take 0.5 tablets (0.25 mg) by mouth Daily as needed for anxiety. Do not start before June 20, 2024. 8 tablet 0 cyclobenzaprine (Flexeril) 10 MG tablet Take 1 tablet (10 mg) by mouth Nightly as needed for muscle spasms. 30 tablet 1 gabapentin (Neurontin) 400 MG capsule Take 3 capsules (1,200 mg) by mouth Nightly. Do not start before May 15, 2024. 270 capsule 3 loratadine (Claritin) 10 MG tablet Take 1 tablet (10 mg) by mouth daily. 90 tablet 1 PARoxetine (Paxil) 10 MG tablet Take 1 tablet (10 mg) by mouth every morning. 90 tablet 3 propranolol (Inderal) 20 MG tablet TAKE 1 TABLET BY MOUTH TWICE A DAY 180 tablet 1 tamsulosin (Flomax) 0.4 MG 24 hr capsule Take 1 capsule (0.4 mg) by mouth daily. 90 capsule 1 telmisartan (MIcarDIS) 20 MG tablet Take 1 tablet (20 mg) by mouth daily. 90 tablet 1 No current facility-administered medications on file prior to visit. MEDICAL ROS: In the review of Constitutional, HEENT, Endocrine, Dermatologic, Cardiovascular, Respiratory, Gastrointestinal, Genitourinary, Hematologic, Musculoskeletal, Neurologic were reviewed and revealed no complaints Remainder of review of systems is negative except where described elsewhere in this note. BMI: There is no height or weight on file to calculate BMI. VITALS: There were no vitals filed for this visit. MENTAL STATUS EXAM: Level of consciousness: within normal limits and awake Appearance: well-appearing, in chair, fair grooming, and fair hygiene Behavior/Motor: no abnormalities noted. There are no abnormal involuntary movements. Gait is not observed. Attitude toward examiner: cooperative, attentive, and good eye contact Speech: spontaneous, normal rate, and normal volume Mood: euthymic Affect: mood-congruent Thought processes: linear, goal directed and coherent. No loosening of associations or tangentiality. Thought content: Significant for future orientation Suicidal ideation: denies suicidal ideation Homicidal ideation: denies homicidal ideation Delusions: no evidence of delusion (more content not included)... Normal [facility] 36on 09-20-2024 36 I called and spoke michael Evans relaying echocardiogram result note from Dr Velázquez. He verbalized understanding and was thankful for the call. He will continue his current medications and follow-up as scheduled. Normal [facility] 36on 09-19-2024 36 I called and LMOM that I was calling to go over echocardiogram results. I will call him tomorrow to review (I will be at another office tomorrow). Normal [facility] 36 ----- Message from Angelica Velázquez MD sent at 09/19/2024 2:26 PM EST ----- Normal LVEF. Normal RV , no significant valve issues. Mildly dilated sinus of valsalva 4.3 and mildly dilated ascending aorta 4.2 cm I pulled up echo from last year and similar size. Repeat echo or CT in 1 year Normal [facility] US Heart Transthoracicon Ao Root Index 1.91 cm/m2 [facility] Aortic Root 4.3 cm [facility] Health Aortic Sinus Valsalva 4.3 cm [facility] Aortic Sinus Valsalva Index 1.91 cm/m2 [facility] Health AR Max Velocity PISA 4.9 m/s [facility] AR PHT 687.4 ms [facility] Ascending Aorta 4.2 cm [facility] Ascending Aorta Index 1.87 cm/m2 [facility] AV Area by Peak Velocity 4.4 cm2 [facility] AV Area by VTI 4.1 cm2 [facility] th AV Mean Gradient 4 mmHg [facility] alth AV Mean Velocity 0.9 m/s [facility] He alth AV Peak Gradient 7 mmHg [facility] alth AV Peak Velocity 1.3 m/s [facility] alth AV Velocity Ratio 0.85 [facility] ealth AV VTI 35.7 cm [facility] MARKUS/BSA Peak Velocity 2 cm2/m2 [facility] MARKUS/BSA VTI 1.8 cm2/m2 [facility] E/E' Lateral 5.25 [facility] E/E' Ratio (Averaged) 6.13 [facility] E/E' Septal 7 [facility] EF BP 59 % 55 - 100 % [facility] Fractional Shortening 2D 33 % 28 - 44 % [facility] Global Longitudinal Strain -17.2 % [facility] Interpretation and review of laboratory results Abnormal [facility] IVC Diameter 1.1 cm [facility] IVSd 1 cm 0.6 - 1.0 cm [facility] LA Diameter 4.1 cm [facility] LA Size Index 1.82 cm/m2 [facility] LA Volume 2C 75 mL Abnormal 18 - 58 mL [facility] LA Volume 4C 72 mL Abnormal 18 - 58 mL [facility] LA Volume A/L 80 mL [facility] LA Volume BP 76 mL Abnormal 18 - 58 mL [facility] LA Volume Index 2C 33 mL/m2 16 - 34 mL/m2 [facility] LA Volume Index 4C 32 mL/m2 16 - 34 mL/m2 [facility] LA Volume Index A/L 36 mL/m2 16 - 34 mL/m2 [facility] LA Volume Index BP 34 ml/m2 16 - 34 ml/m2 [facility] LA/AO Root Ratio 0.95 [facility] LV E' Lateral Velocity 8 cm/s [facility] LV E' Septal Velocity 6 cm/s [facility] LV EDV A2C 102 mL [facility] LV EDV A4C 151 mL [facility] LV EDV BP 129 mL 67 - 155 mL [facility] LV EDV Index A2C 45 mL/m2 [facility] alth LV EDV Index A4C 67 mL/m2 [facility] alth LV EDV Index BP 57 mL/m2 [facility] LV Ejection Fraction A2C 58 % [facility] LV Ejection Fraction A4C 60 % [facility] LV ESV A2C 43 mL [facility] LV ESV A4C 61 mL [facility] LV ESV BP 53 mL 22 - 58 mL [facility] LV ESV Index A2C 19 mL/m2 [facility] alth LV ESV Index A4C 27 mL/m2 [facility] alth LV ESV Index BP 24 mL/m2 [facility] Hea lth LV Mass 2D 226.4 g Abnormal 88 - 224 g [facility] LV Mass 2D Index 100.6 g/m2 49 - 115 g/m2 [facility] LV RWT Ratio 0.35 [facility] LVIDd 5.7 cm 4.2 - 5.9 cm [facility] LVIDd Index 2.53 cm/m2 [facility] LVIDs 3.8 cm [facility] LVIDs Index 1.69 cm/m2 [facility] LVOT Area 4.9 cm2 [facility] LVOT Cardiac Output 8.1 liter/mi nut e [facility] LVOT Diameter 2.5 cm [facility] h LVOT Mean Gradient 3 mmHg [facility] LVOT Peak Gradient 5 mmHg [facility] LVOT Peak Velocity 1.1 m/s [facility] LVOT Stroke Volume Index 62.8 mL/m2 [facility] LVOT SV 141.3 ml [facility] LVOT VTI 28.8 cm [facility] LVOT:AV VTI Index 0.81 [facility] ealt LVPWd 1 cm 0.6 - 1.0 cm [facility] MV A Velocity 0.76 m/s [facility] h MV E Velocity 0.42 m/s [facility] MV E Wave Deceleration Time 254.6 ms [facility] MV E/A 0.55 [facility] RA Area 4C 41.4 mL [facility] RV Basal Dimension 4.2 cm [facility] RV Mid Dimension 2 cm [facility] Sinotubular Junction 3.7 cm [facility] TAPSE 1.8 cm 1.7 cm [facility] TR Max Velocity 2.6 m/s [facility] TR Peak Gradient 27 mmHg [facility] alth Left Ventricle: Left ventricle size is normal. Normal wall thickness. Normal left ventricular systolic function. The EF by visual approximation is 55%. EF by 2D Simpsons Biplane is 59%. Global longitudinal strain is -17.2%. Normal wall motion. Right Ventricle: Right ventricle size is normal. Low normal systolic function. Aortic Valve: Trace regurgitation. Left Atrium: Left atrium is mildly dilated. LA Vol Index A/L is 36 mL/m2. Aorta: Mildly dilated sinuses of Valsalva. Sinuses of Valsalva diameter is 4.3 cm. Mildly dilated ascending aorta. Ao ascending diameter is 4.2 cm. Left Ventricle Left ventricle size is normal. Normal wall thickness. Normal left ventricular systolic function. The EF by visual approximation is 55%. EF by 2D Simpsons Biplane is 59%. Global longitudinal strain is -17.2%. Normal wall motion. Right Ventricle Right ventricle size is normal. Low normal systolic function. Left Atrium Left atrium is mildly dilated. LA Vol Index A/L is 36 mL/m2. Right Atrium Right atrium size is normal. IVC/SVC IVC diameter is normal and decreases greater than 50% during inspiration; therefore the estimated right atrial pressure is normal (~3 mmHg). Mitral Valve Valve structure is normal. Trace regurgitation. No stenosis noted. Tricuspid Valve Valve structure is normal. Trace regurgitation. Aortic Valve Trileaflet. No cusp thickening. No cusp calcification. Trace regurgitation. No stenosis. Pulmonic Valve The pulmonic valve was not well visualized. Trace regurgitation. Ascending Aorta Mildly dilated sinuses of Valsalva. Sinuses of Valsalva diameter is 4.3 cm. Mildly dilated ascending aorta. Ao ascending diameter is 4.2 cm. Pericardium No pericardial effusion. Septum No interatrial shunt visualized on color Doppler. Study Details Image quality: fair. Additional technique includes myocardial strain. Heart rate: 78 bpm. Blood pressure: 124/74 mmHg. Ultrasound enhancement agent was given to enhance imaging. CV CPACS [facility] Office Visiton 09-09-2024 Follow-up visit [id number] Nery Rodriguez 1950 Date Provider Department [place] 09/09/2024 [id number], AMIT [facility] A[facility] HEP None Family History Problem Relation Age of Onset Parkinsonism Mother High Blood Pressure Mother Depression Mother Hearing loss Mother Fainting Mother Hypertension Mother Mental illness Mother Heart disease Father Bipolar disorder Sister Mental illness Sister Family Status - Relation Status Age at Mother Alive Father 80 Sister Alive Other Notes: Essential Tremor Level of Service:98284 [place] OFFICE/OUTPATIENT NEW MODERATE MDM 45 MINUTES Reason for Visit and Comments: New Patient [542] - New patient referred by Dr Quintero regarding abnormal CT scan/Hepatic cysts/cysts found incidental/patient currently not having any symptoms. Normal [facility] ECG 12 lead - CLINIC PERFORM EDon 09-02-2024 Sinus Bradycardia -First degree A-V block Isabelle = 284 -Right bundle branch block with left axis -bifascicular block. [facility] Office Visiton 09-02-2024 Follow-up visit [id number] Nery Rodriguez 1950 M Date Provider Department Center 09/02/2024 [id number] VELÁZQUEZ [facility] NE None Family History Problem Relation Age of Onset Parkinsonism Mother High Blood Pressure Mother Depression Mother Hearing loss Mother Fainting Mother Hypertension Mother Mental illness Mother Heart disease Father Bipolar disorder Sister Mental illness Sister Family Status - Relation Status Age at Mother Alive Father 80 Sister Alive Other Notes: Essential Tremor Level of Service:95061 [place] OFFICE/OUTPATIENT ESTABLISHED MOD MDM 30 MIN Reason for Visit and Comments: 1 Year Follow-up [670] Other [0] - Mildly dilated ascending aorta Normal [facility] Progress Noteon 09-02-2024 Progress Note [facility] Cardiology Note Visit type: Established : 1950 Chief Complaint: Chief Complaint Patient presents with 1 Year Follow-up Other Mildly dilated ascending aorta History of Present Illness: Nery Rodriguez is a 74 y.o. male with history of HTN, RBBB/LAFB, mildly dilated aorta, anxiety who is here for a routine followup. He is doing well. He denies chest pain,sob,orthopnea or pnd . No palpitations. Upon reviewing chart, he had right nephrectomy in 03/2024 due to renal cancer. He reports he passed out once the day after the surgery. He felt lightheaded, his BP was supposedly lower side; may have been due to the pain medication (oxycodone) or dehydration . He increased his fluid intake and stopped pain medications . Since then has had no recurrence. He does aerobic exercise everyday. Past Medical History: Past Medical History: Diagnosis Date 2019 novel coronavirus disease (COVID-19) 02/18/2023 Abnormal EKG Allergic 01/15/1992 Anxiety Arthritis 02/13/2023 Benign prostatic hyperplasia Not sure Emphysema lung (HCC) Enlarged prostate Erectile dysfunction 12 yea Hyperlipidemia Hypertension Kidney stone 02/13/2023 Parkinson's disease (HCC) REM sleep behavior disorder Sepsis (HCC) Tremor Urinary incontinence Controlled by medication Past Surgical History Past Surgical History: Procedure Laterality Date CYST REMOVAL 1970 Tailbone cyst CYSTOSCOPY 02/12/2023 C&P with stent KIDNEY STONE SURGERY 03/2023 KIDNEY SURGERY 02/15/2023 NEPHRECTOMY Right 04/08/2024 ROBOTIC RIGHT RADICAL NEPHRECTOMY - Right Family History Family History Problem Relation Name Age of Onset Parkinsonism Mother Mother High Blood Pressure Mother Mother Depression Mother Mother Hearing loss Mother Mother Fainting Mother Mother Hypertension Mother Mother Mental illness Mother Mother Heart disease Father Nery Rodriguez Sr. Bipolar disorder Sister Bailey Rodriguez Mental illness Sister Bailey Rodriguez Social History Social History Tobacco Use Smoking status: Former Current packs/day: 0.00 Average packs/day: 1 pack/day for 25.0 years (25.0 ttl pk-yrs) Types: Cigarettes Start date: 11/26/1984 Quit date: 11/28/2008 Years since quittin.7 Smokeless tobacco: Never Tobacco comments: Current, daily use of nicotene pouches Vaping Use Vaping status: Never Used Substance Use Topics Alcohol use: Not Currently Drug use: Never Comment: Caffeine: 1 cup of coffee; occasionally in afternoon Allergies: Allergies Allergen Reactions Pollen Extract Seasonal allergies. Ropinirole Constipation and sleepiness Medications: Current Outpatient Medications: clonazePAM (KlonoPIN) 0.5 MG tablet, Take 0.5 tablets (0.25 mg) by mouth Daily as needed for anxiety. Do not start before June 20, 2024., Disp: 8 tablet, Rfl: 0 loratadine (Claritin) 10 MG tablet, Take 1 tablet (10 mg) by mouth daily., Disp: 90 tablet, Rfl: 1 PARoxetine (Paxil) 10 MG tablet, Take 1 tablet (10 mg) by mouth every morning., Disp: 90 tablet, Rfl: 3 propranolol (Inderal) 20 MG tablet, TAKE 1 TABLET BY MOUTH TWICE A DAY, Disp: 180 tablet, Rfl: 1 tamsulosin (Flomax) 0.4 MG 24 hr capsule, Take 1 capsule (0.4 mg) by mouth daily., Disp: 90 capsule, Rfl: 1 telmisartan (MIcarDIS) 20 MG tablet, Take 1 tablet (20 mg) by mouth daily., Disp: 90 tablet, Rfl: 1 carbidopa-levodopa (Sinemet) 25-100 MG tablet, Take 1 tablet by mouth 3 times daily., Disp: 270 tablet, Rfl: 1 cyclobenzaprine (Flexeril) 10 MG tablet, Take 1 tablet (10 mg) by mouth Nightly as needed for muscle spasms., Disp: 30 tablet, Rfl: 1 gabapentin (Neurontin) 400 MG capsule, Take 3 capsules (1,200 mg) by mouth Nightly. Do not start before May 15, 2024., Disp: 270 capsule, Rfl: 3 Review of Systems: Review of Systems Constitutional: Negative for activity change, chills, diaphoresis, fatigue and fever. HENT: Negative for nosebleeds and trouble swallowing. Eyes: Negative for discharge and visual disturbance. Respiratory: Negative for apnea, cough, chest tightness, shortness of breath and wheezing. Cardiovascular: Negative for chest pain, palpitations and leg swelling. Gastrointestinal: Negative for abdominal distention, abdominal pain, blood in stool, diarrhea, nausea and vomiting. Endocrine: Negative for cold intolerance and heat intolerance. Genitourinary: Negative for hematuria. Musculoskeletal: Negative for gait problem and myalgias. Skin: Negative for color change and rash. Neurological: Negative for dizziness, seizures, syncope, facial asymmetry, speech difficulty, weakness, light-headedness, numbness and headaches. Hematological: Does not bruise/bleed easily. Psychiatric/Behaviora l: Negative for dysphoric mood. Physical Examination: Vitals: Vitals: 09/02/24 1007 BP: 110/70 BP Location: Right arm Patient Position: Sitting BP Cuff Size: Large adult Pulse: 59 SpO2: 9 (more content not included)... Normal [facility] Office Visiton 08-27-2024 Follow-up visit [id number] Nery Rodriguez 1950 M Date Provider Department Center 08/27/2024 [id number] COSTA [facility] Family History Problem Relation Age of Onset Parkinsonism Mother High Blood Pressure Mother Depression Mother Hearing loss Mother Fainting Mother Hypertension Mother Mental illness Mother Heart disease Father Bipolar disorder Sister Mental illness Sister Family Status - Relation Status Age at Mother Alive Father 80 Sister Alive Other Notes: Essential Tremor Level of Service:04490 [place] OFFICE/OUTPATIENT ESTABLISHED MOD MDM 30 MIN Reason for Visit and Comments: Follow-up [846740] - Pt has already had flu vaccine this season. Normal [facility] Progress Noteon 08-27-2024 Progress Note [facility] - [address] [facility] [address] Dept: [phone] Dept Loc: [phone] Reason for Visit: Follow-up (Pt has already had flu vaccine this season. ) Assessment and Plan 1. Rectal bleeding would advise referral to see grey goods tester they will call patient to schedule. Discussed possible colonoscopy as patient does have a history of chronic anemia though improving - [facility] Gastroenterology 2. Chronic anemia anemia improving we will continue to monitor referral done to GI for further evaluation 3. Renal cancer, right (HCC) urology is following patient just had a CT scan liver lesions noted surgery appointment scheduled for 4. Essential hypertension patient currently on my CAR DIS as well as propranolol. Doing well blood pressure stable 5. Liver lesion 09/09 for further evaluation for liver lesions 6. Recurrent major depressive disorder, in full remission (HCC) Psychiatry following and prescribing medication current treatment plan is effective, no change in therapy, orders and follow up as documented in EMR, lab results reviewed with patient, repeat labs ordered prior to next appointment, reviewed compliance with lifestyle measures, reviewed diet, exercise and weight control, reviewed medications and side effects in detail Return visit in 3 months. Subjective HPI this is a 74-year-old gentleman who has a history of renal cancer in which she had surgery for and is seeing Urology Dr. Quintero. Had a recent CT scan which was negative except for liver lesions they recommended patient see a liver specialist he already has an appointment scheduled. He has not been having any significant abdominal pain nausea or vomiting he also has a history of generalized anxiety he is seeing psychiatry and is well-controlled with this medications. In addition to that patient also been having some issues with chronic anemia her last blood work did go up and has been stable he and I discussed a colonoscopy. Patient has had a history of hemorrhoids and intermittently he gets rectal bleeding. Patient has a history of high blood pressure he is denying any chest pain or shortness of breath he does see cardiology Dr. Velázquez Review of Systems Constitutional: Negative. Negative for activity change, appetite change and fever. HENT: Negative. Negative for congestion. Eyes: Negative. Negative for discharge. Respiratory: Negative. Negative for chest tightness. Cardiovascular: Negative. Gastrointestinal: Negative. Endocrine: Negative. Negative for cold intolerance. Genitourinary: Negative for difficulty urinating. Musculoskeletal: Negative. Neurological: Negative. Negative for dizziness, facial asymmetry and headaches. Hematological: Negative. Allergies Allergen Reactions Pollen Extract Seasonal allergies. Ropinirole Constipation and sleepiness Outpatient Medications Prior to Visit Medication Sig Dispense Refill carbidopa-levodopa (Sinemet) 25-100 MG tablet Take 1 tablet by mouth 3 times daily. 270 tablet 1 clonazePAM (KlonoPIN) 0.5 MG tablet Take 0.5 tablets (0.25 mg) by mouth Daily as needed for anxiety. Do not start before June 20, 2024. 8 tablet 0 cyclobenzaprine (Flexeril) 10 MG tablet Take 1 tablet (10 mg) by mouth Nightly as needed for muscle spasms. 30 tablet 1 gabapentin (Neurontin) 400 MG capsule Take 3 capsules (1,200 mg) by mouth Nightly. Do not start before May 15, 2024. 270 capsule 3 loratadine (Claritin) 10 MG tablet Take 1 tablet (10 mg) by mouth daily. 90 tablet 1 PARoxetine (Paxil) 10 MG tablet Take 1 tablet (10 mg) by mouth every morning. 90 tablet 3 propranolol (Inderal) 20 MG tablet TAKE 1 TABLET BY MOUTH TWICE A DAY 180 tablet 1 tamsulosin (Flomax) 0.4 MG 24 hr capsule Take 1 capsule (0.4 mg) by mouth daily. 90 capsule 1 telmisartan (MIcarDIS) 20 MG tablet Take 1 tablet (20 mg) by mouth daily. 90 tablet 1 No facility-administered medications prior to visit. 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 Orthostatic hypotension MDD (major depressive disorder) Dyslipidemia Ascending aortic aneurysm (HCC) Renal cyst, right Essential hypertension Gram-negative sepsis, unspecified (HCC) Lightheadedness Acute cystitis without hematuria Elevated troponin Hyponatremia Pulmonary emphysema, unspecified emphysema type (HCC) Renal cancer, right (HCC) Past Medical History: Diagnosis Date 2019 novel coronavirus disease (COVID-19) 02/18/2023 Abnormal EKG Allergic 01/15/1992 Anxiety Arthritis 02/13/2023 Benign prostatic hyperplasia Not sure Emphysema lung (HCC) Enlarged prostate Erectile dysfunction 12 yea Hyperlipidemia Hypertension Kidney stone 02/13/2023 Parkinson's disease (HCC) REM sleep behavior disorder (more content not included)... Normal [facility] CBC W Auto Differential pane l (Bld)on 08-26-2024 Basophils (Bld) [#/Vol] 0 10*3/uL 0.0 - 0.2 10*3/uL [facility] Basophils/100 WBC (Bld) 0.7 % 0.0 - 2.0 % [facility] Eosinophils (Bld) [#/Vol] 0.2 10*3/uL 0.0 - 0.5 10*3/uL [facility] Eosinophils/100 WBC (Bld) 3.5 % 0.0 - 6.0 % [facility] Erythrocyte distribution width (RBC) [Ratio] 12.1 % 11.5 - 15.0 % [facility] Hematocrit (Bld) [Volume fraction] 37.4 % Low 40.0 - 52.0 % [facility] Hemoglobin (Bld) [Mass/Vol] 12.9 g/dL Low 13.0 - 18.0 g/dL [facility] Immature granulocytes (Bld) [#/Vol] 0 10*3/uL NINF - 0.1 10*3/uL [facility] Immature granulocytes/100 WBC (Bld) 0.2 % 0.0 - 2.0 % [facility] Interpretation and review of laboratory results Abnormal [facility] Lymphocytes (Bld) [#/Vol] 1.2 10*3/uL 1.0 - 4.3 10*3/uL [facility] Lymphocytes/100 WBC (Bld) 28.8 % 15.0 - 45.0 % [facility] MCH (RBC) [Entitic mass] 31.3 pg 26. 0 - 34.0 pg [facility] MCHC (RBC) [Mass/Vol] 34.5 % 30.5 - 36.0 % [facility] MCV (RBC) [Entitic vol] 90.8 fL 77.0 - 99.0 fL [facility] Monocytes (Bld) [#/Vol] 0.4 10*3/uL 0.0 - 0.9 10*3/uL [facility] Monocytes/100 WBC (Bld) 10.4 % 5.0 - 13.0 % [facility] Neutrophils (Bld) [#/Vol] 2.4 10*3/uL 1.8 - 7.5 10*3/uL [facility] Neutrophils/100 WBC (Bld) 56.4 % 38.0 - 82.0 % [facility] Nucleated RBC/100 WBC (Bld) [Ratio] 0 % [facility] Platelet mean volume (Bld) [Entitic vol] 8.7 fL Low 9.0 - 12.7 fL [facility] Comment on above: MPV is a calculated measurement using platelet volume ratio Platelets (Bld) [#/Vol] 231 10*3/uL 140 - 440 10*3/uL [facility] RBC (Bld) [#/Vol] 4.12 10*6/uL Low 4.40 - 5.9 0 10*6/uL [facility] WBC (Bld) [#/Vol] 4.2 10*3/uL 3.6 - 10.7 10*3/uL [facility] CBC WITH AUTO DIFFERENTIALon 08-26-2024 Basophils (Bld) [#/Vol] 0.0 10*3/uL Normal 0.0-0.2 [facility] Comment on above: Performed By: #### L [id number] ####Cruise Coordinator: DAI ANDERSON ([id number])[facility] JAYJAY RITTMAN (SWRLAB)[address] [place] [address] [place] Basophils/100 WBC (Bld) 0.7 % Normal 0.0-2.0 [facility] Comment on above: Performed By: #### L [id number] ####Cruise Coordinator: DAI ANDERSON ([phone])[facility] JAYJAY RITTMAN (SWRLAB)[address] [place] [address] [place] Eosinophils (Bld) [#/Vol] 0.2 10*3/uL Normal 0.0-0.5 [facility] Comment on above: Performed By: #### L [id number] ####Cruise Coordinator: DAI ANDERSON ([id number])[facility]AYJAY [facility]ITTMAN (SWRLAB)[address] [place] [address] [place] Eosinophils/100 WBC (Bld) 3.5 % Normal 0.0-6.0 [facility] Comment on above: Performed By: #### L [id number] ####Cruise Coordinator: DIA ANDERSON ([phone])[facility]ITAL[facility]eron[facility] RO RITTMAN (SWRLAB)[address] [place] [address] Erythrocyte distribution width (RBC) [Ratio] 12.1 % Normal 11.5-15.0 [facility] Comment on above: Performed By: #### L [id number] ####Cruise Coordinator: DAI ANDERSON ([id number])[facility] (SWRLAB)[address] [place] [address] Hematocrit (Bld) [Volume fraction] 37.4 % Low 40.0-52.0 [facility] Comment on above: Performed By: #### L [id number] ####Cruise Coordinator: DAI ANDERSON ([id number])[facility] (SWRLAB)[address] [place] [address] Hemoglobin (Bld) [Mass/Vol] 12.9 g/dL Low 13.0-18.0 [facility] Comment on above: Performed By: #### L [id number] ####Cruise Coordinator: DAI ANDERSON ([id number])[facility] RO RITTM[place] (SWRLAB)[address] [place] [address] IMMATURE GRANS % 0.2 % Normal 0.0-2.0 [facility] Comment on above: Performed By: #### L [id number] ####Cruise Coordinator: DAI ANDERSON ([phone])[facility]ITTM[facility] (SWRLAB)[address] [place] [address] IMMATURE GRANS ABSOLUTE 0.0 10*3/uL Normal <0.1 [facility] Comment on above: Performed By: #### L [id number] ####Cruise Coordinator: DAI ANDERSON ([id number])[facility]ITTM[facility] (SWRLAB)[address] [place] [address] Lymphocytes (Bld) [#/Vol] 1.2 10*3/uL Normal 1.0-4.3 [facility] Comment on above: Performed By: #### L [id number] ####Cruise Coordinator: DAI ANDERSON ([id number])[facility] RO [facility] (SWRLAB)[address] [place] [address] [place] Lymphocytes/100 WBC (Bld) 28.8 % Normal 15.0-45.0 [facility] Comment on above: Performed By: #### L [id number] ####Cruise Coordinator: DAI ANDERSON ([id number])[facility] (SWRLAB)[address] [place] [address] MCH (RBC) [Entitic mass] 31.3 pg Normal 26.0-34.0 [facility] Comment on above: Performed By: #### L [id number] ####Cruise Coordinator: DAI ANDERSON ([id number])[facility]TM[facility] (SWRLAB)[address] [place] [address] MCHC 34.5 % Normal 30.5-36.0 [facility] Comment on above: Performed By: #### L [id number] ####Cruise Coordinator: DAI ANDERSON ([id number])[facility] [place] (SWRLAB)[address] [place] [address] MCV (RBC) [Entitic vol] 90.8 fL Normal 77.0-99.0 [facility] Comment on above: Performed By: #### L [id number] ####Cruise Coordinator: DAI ANDERSON ([id number])[facility] (SWRLAB)[address] [place] [address] Monocytes (Bld) [#/Vol] 0.4 10*3/uL Normal 0.0-0.9 [facility] Comment on above: Performed By: #### L [id number] ####Cruise Coordinator: DAI ANDERSON ([id number])[facility] (SWRLAB)[address] [place] [address] [place] Monocytes/100 WBC (Bld) 10.4 % Normal 5.0-13.0 [facility] Comment on above: Performed By: #### L [id number] ####Cruise Coordinator: DAI ANDERSON ([id number])AR[facility] RO RITTMAN (SWRLAB)[address] [place] [address] NEUTROPHILS ABSOLUTE 2.4 10*3/uL Normal 1.8-7.5 [facility] Comment on above: Performed By: #### L [id number] ####Cruise Coordinator: DAI ANDERSON ([id number])[facility] (SWRLAB)[address] [place] [address] Neutrophils/100 WBC (Bld) 56.4 % Normal 38.0-82.0 [facility] Comment on above: Performed By: #### L [id number] ####Cruise Coordinator: DAI ANDERSON ([id number])[facility] (SWRLAB)[address] [place] [address] NRBC 0.0 /100 WBCs Normal 0.0-2.0 [facility] Comment on above: Performed By: #### L [id number] ####Cruise Coordinator: DAI ANDERSON ([id number])[facility] (SWRLAB)[address] [place] [address] Platelet mean volume (Bld) [Entitic vol] 8.7 fL Low 9.0-12.7 [facility] Comment on above: Result Comment: MPV is a calculated measurement using platelet volume ratio Performed By: #### L [id number] ####Cruise Coordinator: DAI ANDERSON ([id number])[facility] (SWRLAB)[address] [place] [address] [place] Platelets (Bld) [#/Vol] 231 10*3/uL Normal 140-440 [facility] Comment on above: Performed By: #### L [id number] ####Cruise Coordinator: DAI ANDERSON ([id number])[facility]TM[facility] (SWRLAB)[address] RBC (Bld) [#/Vol] 4.12 10*6/uL Low 4.40-5.90 [facility] Comment on above: Performed By: #### L [id number] ####Cruise Coordinator: DAI ANDERSON ([id number])[facility] (SWRLAB)[address] WBC (Bld) [#/Vol] 4.2 10*3/uL Normal 3.6-10.7 [facility] Comment on above: Performed By: #### L [id number] ####Cruise Coordinator: DAI ANDERSON ([id number])[facility] (SWRLAB)[address] [place] [address] COMPREHENSIVE METABOLIC PANE Angel 08-26-2024 Albumin [Mass/Vol] 3.9 g/dL Normal 3.5-5.0 [facility] Comment on above: Performed By: #### L [id number] #### Cruise Coordinator: DAI ANDERSON ([id number]) [facility] [address] ALP [Catalytic activity/Vol] 76 U/L Normal 38-126 [facility] Comment on above: Performed By: #### L [id number] #### Cruise Coordinator: DAI ANDERSON ([id number]) [facility] [address] ALT [Catalytic activity/Vol] 5 U/L Normal 0-49 [facility] Comment on above: Performed By: #### L [id number] #### Cruise Coordinator: DAI ANDERSON ([id number]) [facility] [address] Anion gap [Moles/Vol] 7 mmol/L Normal 3-13 [facility] Comment on above: Performed By: #### L [id number] #### Cruise Coordinator: DAI ANDERSON ([id number]) [facility] [address] [place] [address] [place] AST [Catalytic activity/Vol] 33 U/L Normal 15-46 [facility] Comment on above: Performed By: #### L [id number] #### Cruise Coordinator: DAI ANDERSON ([id number]) [facility] [address] [place] [address] [place] Bilirubin [Mass/Vol] 0.8 mg/dL Normal 0.2-1.3 [facility] Comment on above: Performed By: #### L [id number] #### Cruise Coordinator: DAI ANDERSON ([id number]) [facility] [address] [place] [address] [place] Calcium [Mass/Vol] 9.4 mg/dL Normal 8.4-10.4 [facility] Comment on above: Performed By: #### L [id number] #### Cruise Coordinator: DAI ANDERSON ([id number]) [facility] [address] [place] [address] [place] Chloride [Moles/Vol] 99 mmol/L Normal 98-107 [facility] Comment on above: Performed By: #### L [id number] #### Cruise Coordinator: DAI ANDERSON ([id number]) [facility] [address] [place] [address] [place] CO2 [Moles/Vol] 28 mmol/L Normal 22-30 [facility] Comment on above: Performed By: #### L [id number] #### Cruise Coordinator: DAI ANDERSON ([id number]) [facility] [address] [place] [address] [place] Creatinine [Mass/Vol] 1.38 mg/dL High 0.66-1.25 [facility] Comment on above: Performed By: #### L [id number] #### Cruise Coordinator: DAI ANDERSON ([id number]) [facility] [address] [place] [address] [place] GLOMERULAR FILTRATION RATE ML/MIN/1.73 SQ M.PREDICTED 54.0 mL/min/1.73m*2 Low >60.0 [facility] Comment on above: Result Comment: Calc ulation based on the Chronic Kidney Disease Epidemiology Collaboration (CKD-EPI) equation refit without adjustment for race Performed By: #### L [id number] #### Cruise Coordinator: DAI ANDERSON ([id number]) [facility] [address] [place] [address] [place] Glucose [Mass/Vol] 98 mg/dL Normal 70-100 [facility] Comment on above: Performed By: #### L [id number] #### Cruise Coordinator: DAI ANDERSON ([id number]) [facility] [address] [place] [address] [place] Potassium [Moles/Vol] 4.8 mmol/L Normal 3.5-5.1 [facility] Comment on above: Performed By: #### L [id number] #### Cruise Coordinator: DAI ANDERSON ([id number]) [facility] [address] [place] [address] [place] Protein [Mass/Vol] 7.1 g/dL Normal 6.3-8.2 [facility] Comment on above: Performed By: #### L [id number] #### Cruise Coordinator: DAI ANDERSON ([id number]) [facility] [address] [place] [address] [place] Sodium [Moles/Vol] 135 mmol/L Normal 135-145 [facility] Comment on above: Performed By: #### L [id number] #### Cruise Coordinator: DAI ANDERSON ([id number]) [facility] [address] [place] [address] [place] Urea nitrogen [Mass/Vol] 17 mg/dL Normal 9-20 [facility] Comment on above: Performed By: #### L [id number] #### Cruise Coordinator: DAI ANDERSON ([id number]) [facility] JAYJAYKHOI BRUNO ([facility]) [address] [place] [address] Cobalamin (Vitamin B12) [Mas s/Vol]on 08-26-2024 Interpretation and review of laboratory results Normal [facility] Comprehensive metabolic 1998 panelon 08-26-2024 Albumin [Mass/Vol] 3.9 g/dL 3.5 - 5.0 g/dL [facility] ALP [Catalytic activity/Vol] 76 U/L 38 - 126 U/L [facility] ALT [Catalytic activity/Vol] 5 U/L 0 - 49 U/L [facility] Anion gap [Moles/Vol] 7 mmol/L 3 - 13 mmol/L [facility] AST [Catalytic activity/Vol] 33 U/L 15 - 46 U/L [facility] Bilirubin [Mass/Vol] 0.8 mg/dL 0.2 - 1 .3 mg/dL [facility] Calcium [Mass/Vol] 9.4 mg/dL 8.4 - 10. 4 mg/dL [facility] Chloride [Moles/Vol] 99 mmol/L 98 - 10 7 mmol/L [facility] CO2 [Moles/Vol] 28 mmol/L 22 - 30 mmol/L [facility] Creatinine [Mass/Vol] 1.38 mg/dL High 0.66 - 1.25 mg/dL [facility] GFR/1.73 sq M.predicted (S/P/Bld) [Vol rate/Area] 54 mL/min Low - PINF [facility] Comment on above: Calculation based on the Chronic Kidney Disease Epidemiology Collaboration (CKD-EPI) equation refit without adjustment for race Glucose [Mass/Vol] 98 mg/dL 70 - 100 mg/dL [facility] Interpretation and review of laboratory results Abnormal [facility] Potassium [Moles/Vol] 4.8 mmol/L 3.5 - 5.1 mmol/L [facility] Protein [Mass/Vol] 7.1 g/dL 6.3 - 8.2 g/dL [facility] Sodium [Moles/Vol] 135 mmol/L 135 - 145 mmol/L [facility] Urea nitrogen [Mass/Vol] 17 mg/dL 9 - 20 mg/dL [facility] IRONon 08-26-2024 IRON, TOTAL 105 ug/dL Normal 49-181 [facility] Comment on above: Performed By: #### L AB17, LAB67, LAB94 ####Cruise Coordinator: DAI ANDERSON ([id number])[facility] ([facility])[address] Iron and Iron binding capaci ty panelon 08-26-2024 Interpretation and review of laboratory results Normal [facility] Iron [Mass/Vol] 105 ug/dL 49 - 181 ug/dL [facility] No Panel Informationon 08-26 [facility] VITAMIN B12on 08-26-2024 Cobalamin (Vitamin B12) [Mass/Vol] 746 pg/mL Normal 239-931 [facility] Comment on above: Performed By: #### Zacarias AB17, LAB67, LAB94 ####Cruise Coordinator: DAI ANDERSON ([id number])[facility] ([facility])[address] [place] [address] Vitamin B12on 08-26-2024 Cobalamin (Vitamin B12) [Mass/Vol] 746 pg/mL 239 - 931 pg/mL [facility] 36on 08-23-2024 36 Recent Visits Date Type Provider Dept 04/30/24 Office Visit Shawanda Costa MD [facility] 12/26/23 Office Visit Shawanda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 for congestion, postnasal drip and rhinorrhea. Respiratory: Negative for cough, chest tightness, shortness of breath and wheezing. Cardiovascular: Negative for chest pain, palpitations and leg swelling. Neurological: Negative for dizziness and headaches. Medications: @MEDCMED@ Allergies: Allergies Allergen Reactions Pollen Extract Seasonal allergies. Ropinirole Constipation and sleepiness Vital Signs: BP 126/72 (BP Location: Left arm, Patient Position: Sitting, BP Cuff Size: Adult) Pulse 69 Ht 6' 1 (1.854 m) Wt 224 lb (102 kg) SpO2 96% Comment: RA BMI 29.55 kg/m? Physical Exam: Physical Exam Vitals reviewe (more content not included)... Normal [facility] 36on 07-01-2024 36 Recent Visits Date Type Provider Dept 04/30/24 Office Visit Shawanda Costa MD [facility] 12/26/23 Office Visit Shawanda Costa MD [facility] 08/29/23 Office Visit Shawanda Costa MD [facility] 07/07/23 Office Visit Shawanda Costa MD [facility] Showing recent visits within past 365 days and meeting all other requirements Future Appointments Date Type Provider Dept 08/27/24 Appointment Shawanda Costa MD [facility] Showing future appointments within next 90 days and meeting all other requirements Requested Prescriptions Pending Prescriptions Disp Refills loratadine (Claritin) 10 MG tablet 90 tablet 1 Sig: Take 1 tablet (10 mg) by mouth daily. Provider: Shawanda Costa MD Verified pharmacy: yes Verified day(s) supplied: yes Verified refill(s) needed (previous prescription showing no refills in chart): Yes Have you received any controlled medications from any other provider? N/A Overdue for visit: No If yes - patient scheduled? Yes Most recent labs completed in chart? No None Normal [facility] 36on 06-04-2024 36 LVM for patient to call to schedule his follow up appointment to review imaging with . Will send Deeplink message as well. Normal [facility] CT LUNG SCREENING LOW DOSEon 06-03-2024 CT LUNG SCREENING LOW DOSE This is a summary report. The complete report is available in the patient's medical record. If you cannot access the medical record, please contact the sending organization for a detailed fax or copy. Patient Name: NERY RODIRGUEZ : 1950 Exam Date/Time: 05/28/2024 10:25 Procedure: CT LUNG SCREENING LOW DOSE Ordering Provider: MCGILL MARIA Reason For Exam: Lung cancer screening, >= 20 pk-yr smoking history (Age >= 50y) SCREENING CT CHEST WITHOUT CONTRAST: CLINICAL INDICATION: Personal history of nicotine dependence TECHNIQUE: Low dose transaxial sequence through the chest from apices through the bases with low-dose technique with 1 mm reconstruction. Sagittal and coronal reconstructions included. Dose reduction was employed with automated exposure control. COMPARISON: 05/22/2023 FINDINGS: Lungs nodules: Previously noted 5 mm nodule in the medial left upper lobe is actually elongated and noted on coronal image 4:48 with a cephalocaudad thickness of up to 1 mm. This would correspond to a benign process and remains unchanged. Other lung findings: No consolidation or atelectasis. Pleural spaces: No pleural fluid or thickening. Heart/Great vessels: Normal size cardiac chambers. Coronary artery and aorta atherosclerotic calcifications. Mediastinum/Dayana: Normal on this noncontrast study. Chest wall/Neck base: Normal. Upper abdomen: Large fluid attenuation cyst within the right lobe of liver measures up to approximately 8.5 cm without change. Additional smaller foci are also noted within the liver without change. Normal visualized portions of the spleen. Normal adrenal glands. Bones: Degenerative change of the thoracic spine. IMPRESSION: 1. Previously described 5 mm nodule in the left upper lobe is elongated and coronal and sagittal orientation measuring 1 mm in cephalocaudad dimension, corresponding to a benign process 2. No other new nodule 3. Atherosclerotic calcifications ASSESSMENT CATEGORY: Lung-RADS Category 2 - Benign appearance or behavior. Recommend continued annual low-dose screening CT in 12 months. No other clinically significant findings. Report Dictated on Electronically Signed By: Ricardo Nelson MD Electronically Signed Date/Time: 06/03/2024 12:17 PM EDT FORMER SMOKER - QUIT 10 YEARS AGO AFTER 25 YRS OF 1PPD NCC HX: EMPHYSEMA,KIDNEY CANCER SX: RT KIDNEY REMOVED 7 WEEKS AGO Normal [facility] Progress Noteon 05-28-2024 Progress Note Please schedule fu t o review imaging Normal [facility] 36on 05-20-2024 36 Recent Visits Date Type Provider Dept 04/30/24 Office Visit Shawanda Costa MD [facility] 12/26/23 Office Visit Shawanda Costa MD [facility] 08/29/23 Office Visit Shawanda Costa MD [facility] 07/07/23 Office Visit Shawanda Costa MD [facility] Showing recent visits within past 365 days and meeting all other requirements Future Appointments No visits were found meeting these conditions. Showing future appointments within next 90 days and meeting all other requirements Requested Prescriptions Pending Prescriptions Disp Refills tamsulosin (Flomax) 0.4 MG 24 hr capsule 90 capsule 1 Sig: Take 1 capsule (0.4 mg) by mouth daily. Provider: Shawanda Costa MD Overdue for visit: No If yes - patient scheduled? N/A Most recent labs completed in chart? No Verified pharmacy: yes Verified day(s) supplied: yes Verified refill(s) needed (previous prescription showing no refills in chart): Yes Have you received any controlled medications from any other provider? N/A [facility] 36on 05-15-2024 36 Recent Visits Date Type Provider Dept 04/30/24 Office Visit Shawanda Costa MD [facility] 12/26/23 Office Visit Shawanda Costa MD [facility] 08/29/23 Office Visit Shawanda Costa MD [facility] 07/07/23 Office Visit Shawanda Costa MD [facility] Showing recent visits within past 365 days and meeting all other requirements Future Appointments No visits were found meeting these conditions. Showing future appointments within next 90 days and meeting all other requirements Requested Prescriptions Pending Prescriptions Disp Refills loratadine (Claritin) 10 MG tablet [Pharmacy Med Name: LORATADINE 10 MG TABLET] 90 tablet 1 Sig: take 1 tablet by mouth once daily Provider: Shawanda Costa MD Overdue for visit: No If yes - patient scheduled? N/A Most recent labs completed in chart? No Verified pharmacy: yes Verified day(s) supplied: yes Verified refill(s) needed (previous prescription showing no refills in chart): Yes Have you received any controlled medications from any other provider? N/A [place] 47642on 05-13-2024 36 Last seen 04/23/2024 Next appointment 07/23/2024 MOC cannot refuse Paxil 10 mg tablet last prescription 04/23/2024 90 day supply with 1 refill [facility] Office Visiton 05-10-2024 Follow-up visit [id number] Nery Rodriguez 1950 M Date Provider Department Center 05/10/2024 BREANNA XIAO [facility] None Family History Problem Relation Age of Onset Parkinsonism Mother High Blood Pressure Mother Depression Mother Hearing loss Mother Fainting Mother Hypertension Mother Mental illness Mother Heart disease Father Bipolar disorder Sister Mental illness Sister Family Status - Relation Status Age at Mother Alive Father 80 Sister Alive Other Notes: Essential Tremor Level of Service:62049 [place] OFFICE/OUTPATIENT ESTABLISHED MOD MDM 30 MIN Reason for Visit and Comments: Follow-up [453616] Other [0] - Parkinson's disease without dyskinesia or fluctuating manifestations Normal [facility] Progress Noteon 05-10-2024 Progress Note [facility] [address] [facility] [address] Dept: [phone] Dept Loc: [phone] Visit type: Established Patient Reason for Visit: Follow-up and Other (Parkinson's disease without dyskinesia or fluctuating manifestations) Assessment and Plan 1. REM behavioral disorder - gabapentin (Neurontin) 400 MG capsule; Take 3 capsules (1,200 mg) by mouth Nightly. Do not start before May 15, 2024., Starting Mon05/15/2024, Until Mon08/13/2024, Normal 2. Parkinson's disease without dyskinesia or fluctuating manifestations (HCC) 3. Essential tremor Subjective HPI: He reports that he had to have his kidney removed. He had cancer. He continued to take the Sinemet but he felt that the rasagiline. Sinemet is lasing through to the next dose. He reports that he has been taking gabapentin for acting out dreams and for being restless during the night. He reports that he was put on gabapentin and that worked. He reports that he has had recurrence of the sleep behaviors. REVIEW OF SYSTEMS: Review of Systems Constitutional: Negative for appetite change, chills, diaphoresis, fatigue, fever and unexpected weight change. HENT: Negative for dental problem and mouth sores. Eyes: Negative for discharge and itching. Respiratory: Negative for chest tightness and shortness of breath. Cardiovascular: Negative for chest pain, palpitations and leg swelling. Gastrointestinal: Negative for abdominal pain, nausea, rectal pain and vomiting. Endocrine: Negative for polydipsia, polyphagia and polyuria. Genitourinary: Negative for decreased urine volume, flank pain and genital sores. Musculoskeletal: Positive for back pain. Negative for arthralgias and neck pain. Skin: Negative for color change. Allergic/Immunologic: Negative for food allergies and immunocompromised state. Neurological: Positive for tremors. Negative for dizziness, syncope, weakness, light-headedness and headaches. Hematological: Negative for adenopathy. Does not bruise/bleed easily. Psychiatric/Behaviora l: Negative for agitation, behavioral problems, confusion, decreased concentration, sleep disturbance and suicidal ideas. Allergies Allergen Reactions Pollen Extract Seasonal allergies. Ropinirole Constipation and sleepiness Current Outpatient Medications: carbidopa-levodopa (Sinemet) 25-100 MG tablet, Take 1 tablet by mouth 3 times daily., Disp: 270 tablet, Rfl: 1 [START ON 06/20/2024] clonazePAM (KlonoPIN) 0.5 MG tablet, Take 0.5 tablets (0.25 mg) by mouth Daily as needed for anxiety for up to 24 doses. Do not start before June 20, 2024., Disp: 8 tablet, Rfl: 0 loratadine (Claritin) 10 MG tablet, Take 1 tablet (10 mg) by mouth daily., Disp: 90 tablet, Rfl: 1 PARoxetine (Paxil) 10 MG tablet, Take 1 tablet (10 mg) by mouth every morning., Disp: 90 tablet, Rfl: 1 propranolol (Inderal) 20 MG tablet, Take 1 tablet (20 mg) by mouth 2 times daily., Disp: 180 tablet, Rfl: 1 tamsulosin (Flomax) 0.4 MG 24 hr capsule, Take 1 capsule (0.4 mg) by mouth daily., Disp: 90 capsule, Rfl: 1 telmisartan (MIcarDIS) 20 MG tablet, Take 1 tablet (20 mg) by mouth daily., Disp: 90 tablet, Rfl: 1 cyclobenzaprine (Flexeril) 10 MG tablet, Take 1 tablet (10 mg) by mouth Nightly as needed for muscle spasms. (Patient not taking: Reported on 04/08/2024), Disp: 30 tablet, Rfl: 1 [START ON 05/15/2024] gabapentin (Neurontin) 400 MG capsule, Take 3 capsules (1,200 mg) by mouth Nightly. Do not start before May 15, 2024., Disp: 270 capsule, Rfl: 3 meloxicam (Mobic) 15 MG tablet, Take by mouth Daily as needed., Disp: , Rfl: Past Medical History: Diagnosis Date 2019 novel coronavirus disease (COVID-19) 02/18/2023 Abnormal EKG Allergic 01/15/1992 Anxiety Arthritis 02/13/2023 Benign prostatic hyperplasia Not sure Emphysema lung (HCC) Enlarged prostate Erectile dysfunction 12 yea Hyperlipidemia Hypertension Kidney stone 02/13/2023 Parkinson's disease (HCC) REM sleep behavior disorder Sepsis (HCC) Tremor Urinary incontinence Controlled by medication Social History Tobacco Use Smoking status: Former Current packs/day: 0.00 Average packs/day: 1 pack/day for 25.0 years (25.0 ttl pk-yrs) Types: Cigarettes Start date: 11/26/1984 Quit date: 11/28/2008 Years since quittin.4 Smokeless tobacco: Never Tobacco comments: Current, daily use of nicotene pouches Substance Use Topics Alcohol use: Not Currently Past Surgical History: Procedure Laterality Date CYST REMOVAL 1970 Tailbone cyst CYSTOSCOPY 02/12/2023 C&P with stent KIDNEY STONE SURGERY 03/2023 KIDNEY SURGERY 02/15/2023 NEPHRECTOMY Right 04/08/2024 ROBOTIC RIGHT RADICAL NEPHRECTOMY - Right Family History Problem Relation Name Age of Onset Parkinsonism Mother Juhi Rodriguez High Blood Pressure Mother Juhi Rodriguez Depression Mother Juhi Rodriguez Hearing (more content not included)... [facility] 29on 04-30-2024 29 Addended by: ENE LUGO on: 08/26/2024 08:55 AM Modules accepted: Orders [facility] 36on 04-30-2024 36 LM - called to relay this message: 1. Please let patient know that I reviewed his chart and wanted to confirm whether or not he was taking the meloxicam. If he is still taking meloxicam I recommend stop as this can affect his kidney function [facility] 36 I called Colog[facility], they have Negative results from 2021, they will fax us the results. [facility] 36 1. Please let patien t know that I reviewed his chart and wanted to confirm whether or not he was taking the meloxicam. If he is still taking meloxicam I recommend stop as this can affect his kidney function #2 discussed with if possible get a copy of patient's last Cologuard as I do not see the test results in the chart [facility] Office Visiton 04-30-2024 Follow-up visit [id number] Nery Rodriguez 1950 M Date Provider Department Center 04/30/2024 SHAWANDA HYLTON [facility] Family History Problem Relation Age of Onset Parkinsonism Mother High Blood Pressure Mother Depression Mother Hearing loss Mother Fainting Mother Hypertension Mother Mental illness Mother Heart disease Father Bipolar disorder Sister Mental illness Sister Family Status - Relation Status Age at Mother Alive Father 80 Sister Alive Other Notes: Essential Tremor Level of Service:54867 [place] OFFICE/OUTPATIENT ESTABLISHED MOD MDM 30 MIN Reason for Visit and Comments: Follow-up [028475] - Discuss recent surgery [facility] Progress Noteon 04-30-2024 Progress Note [facility] [address] [facility] [address] [facility] [address] Dept: [phone] Dept Loc: [phone] Reason for Visit: Follow-up (Discuss recent surgery ) Assessment and Plan 1. Chronic anemia currently patient has had surgery most likely anemia caused by surgery will repeat a CBC and iron and B12. Also of note patient states he had a Cologuard done approximately a year ago we will try to obtain records of this. - CBC auto differential - Comprehensive metabolic panel - Iron level - Vitamin B12 2. Renal cancer, right (HCC) urology is following patient has a repeat CAT scan in 3 months. Patient to follow-up with Dr. Quintero regarding this I also recommend stopping: Meloxicam. Chronic stable we will continue 3. 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 4. Essential hypertension chronic stable continue propranolol telmisartan continue to monitor blood pressure current treatment plan is effective, no change in therapy, orders and follow up as documented in EMR, lab results reviewed with patient, repeat labs ordered prior to next appointment, reviewed compliance with lifestyle measures, reviewed diet, exercise and weight control, reviewed medications and side effects in detail Return visit in 3 months. Subjective HPI a 73-year-old male patient that has multiple medical problems. 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 He is denying any chest pain or shortness of breath. A while back he was diagnosed with a REM sleep behavioral disorder and has been on gabapentin ever since he feels the gabapentin were significantly for him. However he is currently seeing a neurologist as well. We did need to decrease his gabapentin due to his history of renal cancer and he had a right-sided nephrectomy so the gabapentin was decreased I did instruct patient that I would like him to follow-up with his neurologist regarding his REM sleep behavioral disorder and other alternatives for medications in addition to that patient also Review of Systems Constitutional: Negative. Negative for activity change, appetite change and fever. HENT: Negative. Negative for congestion. Eyes: Negative. Negative for discharge. Respiratory: Negative. Negative for chest tightness. Cardiovascular: Negative. Gastrointestinal: Negative. Endocrine: Negative. Negative for cold intolerance. Genitourinary: Negative for difficulty urinating. Musculoskeletal: Negative. Neurological: Negative. Negative for dizziness, facial asymmetry and headaches. Hematological: Negative. Allergies Allergen Reactions Pollen Extract Seasonal allergies. Ropinirole Constipation and sleepiness Outpatient Medications Prior to Visit Medication Sig Dispense Refill [START ON 06/20/2024] clonazePAM (KlonoPIN) 0.5 MG tablet Take 0.5 tablets (0.25 mg) by mouth Daily as needed for anxiety for up to 24 doses. Do not start before June 20, 2024. 8 tablet 0 gabapentin (Neurontin) 400 MG capsule Take 1 capsule (400 mg) by mouth 3 times daily. 90 capsule 1 loratadine (Claritin) 10 MG tablet Take 1 tablet (10 mg) by mouth daily. 90 tablet 1 meloxicam (Mobic) 15 MG tablet Take by mouth Daily as needed. PARoxetine (Paxil) 10 MG tablet Take 1 tablet (10 mg) by mouth every morning. 90 tablet 1 propranolol (Inderal) 20 MG tablet Take 1 tablet (20 mg) by mouth 2 times daily. 180 tablet 1 tamsulosin (Flomax) 0.4 MG 24 hr capsule Take 1 capsule (0.4 mg) by mouth daily. 90 capsule 1 telmisartan (MIcarDIS) 20 MG tablet Take 1 tablet (20 mg) by mouth daily. 90 tablet 1 carbidopa-levodopa (Sinemet) 25-100 MG tablet Take 1 tablet by mouth 3 times daily. 270 tablet 1 cyclobenzaprine (Flexeril) 10 MG tablet Take 1 tablet (10 mg) by mouth Nightly as needed for muscle spasms. (Patient not taking: Reported on 04/08/2024) 30 tablet 1 rasagiline (Azilect) 0.5 MG tablet Take 1 tablet (0.5 mg) by mouth daily. (Patient not taking: Reported on 01/24/2024) 90 tablet 1 No facility-administered medications prior to visit. 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 Normal [facility] Office Visiton 04-24-2024 Follow-up visit [id number] Nery Rodriguez 1950 M Date Provider Department Center 04/24/2024 [facility] None Family History Problem Relation Age of Onset Parkinsonism Mother High Blood Pressure Mother Depression Mother Hearing loss Mother Fainting Mother Hypertension Mother Mental illness Mother Heart disease Father Bipolar disorder Sister Mental illness Sister Family Status - Relation Status Age at Mother Alive Father 80 Sister Alive Other Notes: Essential Tremor Level of Service:47461 [place] POSTOP FOLLOW UP VISIT RELATED TO ORIGINAL PX Reason for Visit and Comments: Post-op [483] - Renal Mass Nephrectomy Normal [facility] Progress Noteon 04-24-2024 Progress Note We want to inform yo u that your patient's blood pressure was noted to be elevated in our office today. We thank you for trusting us with your patient's health. Last BP: BP Readings from Last 3 Encounters: 04/24/24 115/79 04/19/24 138/78 04/14/24 (!) 163/82 Pt experienced an episode of hypotension and dizziness at post op appointment 85/52 but did recover after monitoring . Pt did report he had not drank much fluid prior to appointment [facility] Progress Note Conner Quintero MD 04/24/2024 at 1:31 PM Office follow up PATIENT NAME: Nery Rodriguez DATE OF : 1950 TODAY'S DATE: 04/24/2024 CHIEF COMPLAINT: Chief Complaint Patient presents with Post-op Renal Mass Nephrectomy Subjective: Mr. Rodriguez is a 73 y.o. male who presents to the office for follow up of right radical nephrectomy Review of Systems Past Medical History: Past Medical History: Diagnosis Date 2019 novel coronavirus disease (COVID-19) 02/18/2023 Abnormal EKG Allergic 01/15/1992 Anxiety Arthritis 02/13/2023 Emphysema lung (HCC) Enlarged prostate Hyperlipidemia Hypertension REM sleep behavior disorder Sepsis (HCC) Past Surgical History: Past Surgical History: Procedure Laterality Date CYST REMOVAL 1970 Tailbone cyst CYSTOSCOPY 02/12/2023 C&P with stent KIDNEY SURGERY 02/15/2023 NEPHRECTOMY Right 04/08/2024 ROBOTIC RIGHT RADICAL NEPHRECTOMY - Right Allergies: Pollen extract and Ropinirole Social History: Social History Socioeconomic History Marital status: Spouse name: Not on file Number of children: Not on file Years of education: Not on file Highest education level: Not on file Occupational History Not on file Tobacco Use Smoking status: Former Current packs/day: 0.00 Average packs/day: 1 pack/day for 25.0 years (25.0 ttl pk-yrs) Types: Cigarettes Start date: 11/26/1984 Quit date: 11/28/2008 Years since quittin.4 Smokeless tobacco: Current Tobacco comments: Current, daily use of nicotene pouches Vaping Use Vaping status: Never Used Substance and Sexual Activity Alcohol use: Not Currently Drug use: Never Comment: Caffeine: 1 cup of coffee; occasionally in afternoon Sexual activity: Not Currently Partners: Female control/protection: None Other Topics Concern Not on file Social History Narrative Not on file Social Determinants of Health Financial Resource Strain: Low Risk (04/08/2024) Overall Financial Resource Strain (CARDIA) Difficulty of Paying Living Expenses: Not hard at all Food Insecurity: No Food Insecurity (04/08/2024) Hunger Vital Sign Worried About Running Out of Food in the Last Year: Never true Ran Out of Food in the Last Year: Never true Transportation Needs: No Transportation Needs (04/08/2024) PRAPARE - Transportation Lack of Transportation (Medical): No Lack of Transportation (Non-Medical): No Physical Activity: Sufficiently Active (04/08/2024) Exercise Vital Sign Days of Exercise per Week: 5 days Minutes of Exercise per Session: 30 min Stress: No Stress Concern Present (04/08/2024) [employer] - Occupational Stress Questionnaire Feeling of Stress : Only a little Social Connections: Socially Isolated (04/08/2024) Social Connection and Isolation Panel [NHANES] Frequency of Communication with Friends and Family: Never Frequency of Social Gatherings with Friends and Family: Twice a week Attends Orthodoxy Services: Never Active Member of Clubs or Organizations: No Attends Club or Organization Meetings: Never Marital Status: Intimate Partner Violence: Not At Risk (02/11/2023) Humiliation, Afraid, Rape, and Kick questionnaire Fear of Current or Ex-Partner: No Emotionally Abused: No Physically Abused: No Sexually Abused: No Housing Stability: Low Risk (04/08/2024) Housing Stability Vital Sign Unable to Pay for Housing in the Last Year: No Number of Times Moved in the Last Year: 0 Homeless in the Last Year: No Family History: Medications Prior to Admission medications Medication Sig Start Date End Date Taking? Authorizing Provider carbidopa-levodopa (Sinemet) 25-100 MG tablet Take 1 tablet by mouth 3 times daily. 12/25/23 04/24/24 Yes Breanna Tolliver MD clonazePAM (KlonoPIN) 0.5 MG tablet Take 0.5 tablets (0.25 mg) by mouth Daily as needed for anxiety for up to 24 doses. Do not start before June 20, 2024. 06/20/24 Yes Dany Healy, docusate sodium (Colace) 100 MG capsule Take 1 capsule (100 mg) by mouth 2 times daily for 10 days. 04/09/24 04/24/24 Yes Christiano Santiago MD gabapentin (Neurontin) 400 MG capsule Take 1 capsule (400 mg) by mouth 3 times daily. 04/10/24 04/10/25 Yes Shawanda Costa MD loratadine (Claritin) 10 MG tablet Take 1 tablet (10 mg) by mouth daily. 11/20/23 Yes Shawanda Costa MD PARoxetine (Paxil) 10 MG tablet Take 1 tablet (10 mg) by mouth every morning. 04/23/24 10/20/24 Yes Dany Healy DO propranolol (Inderal) 20 MG tablet Take 1 tablet (20 mg) by mouth 2 times daily. 02/20/24 08/18/24 Yes Shawanda Costa MD tamsulosin (Flomax) 0.4 MG 24 hr capsule Take 1 capsule (0.4 mg) by mouth daily. 11/13/23 Yes Shawanda Costa MD telmisartan (MIcarDIS) 20 MG tablet Take 1 tablet (20 mg) by mouth daily. 03/12/24 Yes Shawanda Costa MD cyclobenzaprine (Flexeril) 10 MG tablet Take 1 tablet (10 mg) by mouth Nightly as needed for muscle spasms. Patient not ta (more content not included)... Normal [facility] Office Visiton 04-23-2024 Follow-up visit [id number] Nery Rodriguez 1950 M [facility] Provider Department Center 04/23/2024 DANY OZUNA [facility] None Family History Problem Relation Age of Onset Parkinsonism Mother High Blood Pressure Mother Depression Mother Hearing loss Mother Fainting Mother Hypertension Mother Mental illness Mother Heart disease Father Bipolar disorder Sister Mental illness Sister Family Status - Relation Status Age at Mother Alive Father 80 Sister Alive Other Notes: Essential Tremor Level of Service:13501 [place] PSYCHIATRIC DIAGNOSTIC EVAL W/MEDICAL SERVICES Reason for Visit and Comments: New Patient [542] Normal [facility] Progress Noteon 04-23-2024 Progress Note Chart sent for staging to start care plan [facility] Progress Note You are not granted access to view this sensitive note. Normal [facility] BASIC METABOLIC PANELon Anion gap [Moles/Vol] 4 mmol/L Normal 3-13 [facility] Comment on above: Performed By: #### L [id number] ####Cruise Coordinator: DAI ANDERSON ([phone])[facility] JAYJAY Carlson [employer] (SWRLAB)[address] [place] [address] Calcium [Mass/Vol] 9.4 mg/dL Normal 8.4-10.4 [facility] Comment on above: Performed By: #### L [id number] ####Cruise Coordinator: DAI ANDERSON ([id number])[facility] JAYJAY RITTMAN (SWRLAB)[address] [place] [address] Chloride [Moles/Vol] 101 mmol/L Normal 98-107 [facility] Comment on above: Performed By: #### L [id number] ####Cruise Coordinator: DAI ANDERSON ([id number])[facility] RO RITTM[facility] (SWRLAB)[address] CO2 [Moles/Vol] 29 mmol/L Normal 22-30 [facility] Comment on above: Performed By: #### L [id number] ####Cruise Coordinator: DAI ANDERSON ([id number])[facility] JAYJAY RITTMAN (SWRLAB)[address] Creatinine [Mass/Vol] 1.50 mg/dL High 0.66-1.25 [facility] Comment on above: Performed By: #### L [id number] ####Cruise Coordinator: DAI ANDERSON ([id number])[facility] RO [facility]ITTM[facility] (SWRLAB)[address] [place] [address] GLOMERULAR FILTRATION RATE ML/MIN/1.73 SQ M.PREDICTED 49.2 mL/min/1.73m*2 Low >60.0 [facility] Comment on above: Result Comment: Calc ulation based on the Chronic Kidney Disease Epidemiology Collaboration (CKD-EPI) equation refit without adjustment for race Performed By: #### L [id number] ####Cruise Coordinator: DAI ANDERSON ([id number])[facility] RO [facility]ITTMAN (SWRLAB)[address] [place] [address] [place] Glucose [Mass/Vol] 128 mg/dL High 70-100 [facility] Comment on above: Performed By: #### L [id number] ####Cruise Coordinator: DAI ANDERSON ([id number])[facility] JAYJAY R[employer]TMAN (SWRLAB)[address] [place] [address] Potassium [Moles/Vol] 3.8 mmol/L Normal 3.5-5.1 [facility] Comment on above: Performed By: #### L [id number] ####Cruise Coordinator: DAI ANDERSON ([id number])[facility] JAYJAY RITTMAN (SWRLAB)[address] Sodium [Moles/Vol] 135 mmol/L Normal 135-145 [facility] Comment on above: Performed By: #### L [id number] ####Cruise Coordinator: DAI ANDERSON ([id number])[facility] (SWRLAB)[address] Urea nitrogen [Mass/Vol] 17 mg/dL Normal 9-20 [facility] Comment on above: Performed By: #### L [id number] ####Cruise Coordinator: DAI ANDERSON ([id number])[facility] JOSETMAN (SWRLAB)[address] Basic metabolic 1998 panelon 04-19-2024 Anion gap [Moles/Vol] 4 mmol/L 3 - 13 mmol/L [facility] Calcium [Mass/Vol] 9.4 mg/dL 8.4 - 10. 4 mg/dL [facility] Chloride [Moles/Vol] 101 mmol/L 98 - 10 7 mmol/L [facility] CO2 [Moles/Vol] 29 mmol/L 22 - 30 mmol/L [facility] Creatinine [Mass/Vol] 1.50 mg/dL High 0.66 - 1.25 mg/dL [facility] GFR/1.73 sq M.predicted MDRD (S/P/Bld) [Vol rate/Area] 49.2 mL/min/{1.73_m2} Low - PINF [facility] Comment on above: Calculation based on the Chronic Kidney Disease Epidemiology Collaboration (CKD-EPI) equation refit without adjustment for race Glucose [Mass/Vol] 128 mg/dL High 70 - 100 mg/dL [facility] Interpretation and review of laboratory results Abnormal [facility] Potassium [Moles/Vol] 3.8 mmol/L 3.5 - 5.1 mmol/L [facility] Sodium [Moles/Vol] 135 mmol/L 135 - 145 mmol/L [facility] Urea nitrogen [Mass/Vol] 17 mg/dL 9 - 20 mg/dL [facility] CBC W Auto Differential pane l (Bld)on 04-19-2024 Basophils (Bld) [#/Vol] 0.0 10*3/uL 0.0 - 0.2 10*3/uL [facility] Health Basophils/100 WBC (Bld) 0.4 % 0.0 - 2.0 % [facility] Eosinophils (Bld) [#/Vol] 0.3 10*3/uL 0.0 - 0.5 10*3/uL [facility] Eosinophils/100 WBC (Bld) 3.7 % 0.0 - 6.0 % [facility] Erythrocyte distribution width (RBC) [Ratio] 12.6 % 11.5 - 15.0 % [facility] Hematocrit (Bld) [Volume fraction] 31.8 % Low 40.0 - 52.0 % [facility] Hemoglobin (Bld) [Mass/Vol] 10.8 g/dL Low 13.0 - 18.0 g/dL [facility] Immature granulocytes (Bld) [#/Vol] 0.1 10*3/uL High NINF - 0.1 10*3/uL [facility] Health Immature granulocytes/100 WBC (Bld) 1.8 % 0.0 - 2.0 % [facility] Interpretation and review of laboratory results Abnormal [facility] Lymphocytes (Bld) [#/Vol] 1.2 10*3/uL 1.0 - 4.3 10*3/uL [facility] Health Lymphocytes/100 WBC (Bld) 17.4 % 15.0 - 45.0 % [facility] MCH (RBC) [Entitic mass] 32.2 pg 26. 0 - 34.0 pg [facility] MCHC (RBC) [Mass/Vol] 34.0 % 30.5 - 36.0 % [facility] MCV (RBC) [Entitic vol] 94.9 fL 77.0 - 99.0 fL [facility] Monocytes (Bld) [#/Vol] 0.5 10*3/uL 0.0 - 0.9 10*3/uL [facility] Health Monocytes/100 WBC (Bld) 7.1 % 5.0 - 13.0 % [facility] Neutrophils (Bld) [#/Vol] 4.7 10*3/uL 1.8 - 7.5 10*3/uL [facility] Neutrophils/100 WBC (Bld) 69.6 % 38.0 - 82.0 % [facility] Nucleated RBC/100 WBC (Bld) [Ratio] 0.0 % [facility] Platelet mean volume (Bld) [Entitic vol] 8.3 fL Low 9.0 - 12.7 fL [facility] Comment on above: MPV is a calculated measurement using platelet volume ratio Platelets (Bld) [#/Vol] 253 10*3/uL 140 - 440 10*3/uL [facility] RBC (Bld) [#/Vol] 3.35 10*6/uL Low 4.40 - 5.9 0 10*6/uL [facility] WBC (Bld) [#/Vol] 6.7 10*3/uL 3.6 - 10.7 10*3/uL [facility] CBC WITH AUTO DIFFERENTIALon 04-19-2024 Basophils (Bld) [#/Vol] 0.0 10*3/uL Normal 0.0-0.2 [facility] Comment on above: Performed By: #### L [id number] #### Cruise Coordinator: DAI ANDERSON ([id number]) [facility] WILCOXJAYJAY RITTMAN (SWRLAB) [address] [place] [address] [place] Basophils/100 WBC (Bld) 0.4 % Normal 0.0-2.0 [facility] Comment on above: Performed By: #### L [id number] #### Cruise Coordinator: DAI ANDERSON ([id number]) [facility] JAYJAY RITTMAN (SWRLAB) [address] [place] [address] [place] Eosinophils (Bld) [#/Vol] 0.3 10*3/uL Normal 0.0-0.5 [facility] Comment on above: Performed By: #### L [id number] #### Cruise Coordinator: DAI ANDERSON ([id number]) [facility] WILCOXJAYJAY RITTMAN (SWRLAB) [address] [place] [address] [place] Eosinophils/100 WBC (Bld) 3.7 % Normal 0.0-6.0 [facility] Comment on above: Performed By: #### L [id number] #### Cruise Coordinator: DAI ANDERSON ([id number]) [facility] [employer] (SWRLAB) [address] [place] [address] Erythrocyte distribution width (RBC) [Ratio] 12.6 % Normal 11.5-15.0 [facility] Comment on above: Performed By: #### L [id number] #### Cruise Coordinator: DAI ANDERSON ([id number]) [facility] (SWRLAB) [address] [place] [address] Hematocrit (Bld) [Volume fraction] 31.8 % Low 40.0-52.0 [facility] Comment on above: Performed By: #### L [id number] #### Cruise Coordinator: DAI ANDERSON ([id number]) [facility] (SWRL[facility]) [address] [place] [address] Hemoglobin (Bld) [Mass/Vol] 10.8 g/dL Low 13.0-18.0 [facility] Comment on above: Performed By: #### L [id number] #### Cruise Coordinator: DAI ANDERSON ([id number]) [facility] (SWRL[facility]) [address] [place] [address] IMMATURE GRANS % 1.8 % Normal 0.0-2.0 [facility] Comment on above: Performed By: #### L [id number] #### Cruise Coordinator: DAI ANDERSON ([id number]) [facility] (SWRL[facility]) [address] [place] [address] IMMATURE GRANS ABSOLUTE 0.1 10*3/uL High <0.1 [facility] Comment on above: Performed By: #### L [id number] #### Cruise Coordinator: DAI ANDERSON ([id number]) [facility] (SWRL[facility]) [address] [place] [address] Lymphocytes (Bld) [#/Vol] 1.2 10*3/uL Normal 1.0-4.3 [facility] Comment on above: Performed By: #### L [id number] #### Cruise Coordinator: DAI ANDERSON ([id number]) [employer] (SWRL[employer]) [address] [place] [address] [place] Lymphocytes/100 WBC (Bld) 17.4 % Normal 15.0-45.0 [facility] Comment on above: Performed By: #### L [id number] #### Cruise Coordinator: DAI ANDERSON ([id number]) [facility] ([facility]RL[facility]) [address] [place] [address] MCH (RBC) [Entitic mass] 32.2 pg Normal 26.0-34.0 [facility] Comment on above: Performed By: #### L [id number] #### Cruise Coordinator: DAI ANDERSON ([id number]) [facility] ([facility]RL[facility]) [address] [place] [address] MCHC 34.0 % Normal 30.5-36.0 [facility] Comment on above: Performed By: #### L [id number] #### Cruise Coordinator: DAI ANDERSON ([id number]) [facility] (SWRLAB) [address] [place] [address] MCV (RBC) [Entitic vol] 94.9 fL Normal 77.0-99.0 [facility] Comment on above: Performed By: #### L [id number] #### Cruise Coordinator: DAI ANDERSON ([id number]) [facility] (SWRLAB) [address] [place] [address] [place] Monocytes (Bld) [#/Vol] 0.5 10*3/uL Normal 0.0-0.9 [facility] Comment on above: Performed By: #### L [id number] #### Cruise Coordinator: DAI ANDERSON ([id number]) [facility] [employer] (SWRLAB) [address] [place] [address] [place] Monocytes/100 WBC (Bld) 7.1 % Normal 5.0-13.0 [facility] Comment on above: Performed By: #### L [id number] #### Cruise Coordinator: DAI ANDERSON ([id number]) [facility] ([facility]RL[facility]) [address] [place] [address] NEUTROPHILS ABSOLUTE 4.7 10*3/uL Normal 1.8-7.5 [facility] Comment on above: Performed By: #### L [id number] #### Cruise Coordinator: DAI ANDERSON ([id number]) [facility] ([facility]) [address] [place] [address] Neutrophils/100 WBC (Bld) 69.6 % Normal 38.0-82.0 [facility] Comment on above: Performed By: #### L [id number] #### Cruise Coordinator: DAI ANDERSON ([id number]) [facility] (SWRL[facility]) [address] [place] [address] NRBC 0.0 /100 WBCs Normal 0.0-2.0 [facility] Comment on above: Performed By: #### L [id number] #### Cruise Coordinator: DAI ANDERSON ([id number]) [facility] ([facility]) [address] [place] [address] Platelet mean volume (Bld) [Entitic vol] 8.3 fL Low 9.0-12.7 [facility] Comment on above: Result Comment: MPV is a calculated measurement using platelet volume ratio Performed By: #### L [id number] #### Cruise Coordinator: DAI ANDERSON ([id number]) [facility] ([facility]) [address] [place] [address] [place] Platelets (Bld) [#/Vol] 253 10*3/uL Normal 140-440 [facility] Comment on above: Performed By: #### L [id number] #### Cruise Coordinator: DAI ANDERSON ([id number]) [facility] ([facility]RL[facility]) [address] [place] [address] [place] RBC (Bld) [#/Vol] 3.35 10*6/uL Low 4.40-5.90 [facility] Comment on above: Performed By: #### L [id number] #### Cruise Coordinator: DAI HAILYHelen ([id number]) [facility] RITTMAN (SWRLAB) [address] [place] [address] WBC (Bld) [#/Vol] 6.7 10*3/uL Normal 3.6-10.7 [facility] Comment on above: Performed By: #### L [id number] #### Cruise Coordinator: DAI ANDERSON ([id number]) [facility] R[facility] (SWRLAB) [address] [place] [address] CT ABDOMEN PELVIS W CONTRAST on 04-19-2024 CT ABDOMEN PELVIS W CONTRAST Patient Name: NERY RODRIGUEZ : 1950 Exam Date/Time: 04/19/2024 09:22 Procedure: CT ABDOMEN PELVIS W CONTRAST Ordering Provider: HOLCOMB SCOTT Reason For Exam: bleeding from midline incision- s/p nephrectomy. CT ABDOMEN AND PELVIS WITH CONTRAST EXAM DATE AND TIME: 04/19/2024 9:22 AM EDT INDICATION: 73 years with bleeding from midline COMPARISON: 02/11/2023, 07/21/2023 TECHNIQUE: Transaxial sequence through the abdomen and pelvis with 3 mm reconstruction with dynamic intravenous infusion of 75 mL of 370 mg% contrast media. Coronal and sagittal reconstructions included. Dose reduction was employed with automated exposure control. FINDINGS: Chest base: Normal. Liver: Normal size and contour. No suspicious lesion. Numerous cysts are present measuring up to 8.85 7.7 cm. Biliary tree: No extrahepatic biliary dilation. There is intrahepatic biliary dilation upstream from the largest hepatic cyst, new from the prior study. The gallbladder is nondistended. Spleen: Normal. Adrenals: Normal. Pancreas: Normal. Kidneys: Interval right nephrectomy. There is edema and fluid in the surgical bed but without evidence of a mass. No left renal lesion or hydronephrosis. Free fluid: None. Retroperitoneum and mesentery: No enlarged lymph nodes. Bowel: Normal caliber. The appendix is nondistended. Diverticuli are noted throughout the sigmoid colon. No stenotic lesion, mucosal thickening or adjacent fat stranding is noted to suggest diverticulitis. Vasculature: Atherosclerotic calcifications are seen in the aorta and its branches. The aorta is normal in caliber. Abdominal wall: Subcutaneous gas is present in the anterior abdominal wall were related to the patient's recent surgery. There is a lobulated hyperdense structure within the periumbilical/supraum bilical anterior abdominal wall measuring up to 4.3 x 3.9 x 8.2 cm. This abuts the cutaneous surface. Pelvic organs/viscera: No mass identified. The prostate is enlarged. Pelvic lymphadenopathy: None. Osseous structures: Mild degenerative change of the visualized spine is noted. IMPRESSION: 1. Postoperative changes of interval right nephrectomy. Fluid and edema in the surgical bed. 2. Postoperative soft tissue gas in the anterior abdominal wall. A lobulated hyperdense collection is present concerning for hematoma; superimposed infection cannot be excluded by imaging. 3. Multiple liver cysts. There is new intrahepatic biliary dilation upstream for the largest cyst. Consider ERCP for further evaluation. 4. Prostatomegaly. Report Dictated on Electronically Signed By: Daryl Monzon MD Electronically Signed Date/Time: 04/19/2024 9:39 AM EDT [facility] CT Abdomen and Pelvis W cont rast Elana 04-19-2024 1. Postoperative changes of interval right nephrectomy. Fluid and edema in the surgical bed. 2. Postoperative soft tissue gas in the anterior abdominal wall. A lobulated hyperdense collection is present concerning for hematoma; superimposed infection cannot be excluded by imaging. 3. Multiple liver cysts. There is new intrahepatic biliary dilation upstream for the largest cyst. Consider ERCP for further evaluation. 4. Prostatomegaly. Report Dictated on Electronically Signed By: Daryl Monzon MD Electronically Signed Date/Time: 04/19/2024 9:39 AM EDT [facility] EMERGENCY DEPARTMENT [employer] SYSTEM Patient Name: NERY RODRIGUEZ : 1950 Exam Date/Time: 04/19/2024 09:22 Procedure: CT ABDOMEN PELVIS W CONTRAST Ordering Provider: HOLCOMB SCOTT Reason For Exam: bleeding from midline incision- s/p nephrectomy. CT ABDOMEN AND PELVIS WITH CONTRAST EXAM DATE AND TIME: 04/19/2024 9:22 AM EDT INDICATION: 73 years with bleeding from midline COMPARISON: 02/11/2023, 07/21/2023 TECHNIQUE: Transaxial sequence through the abdomen and pelvis with 3 mm reconstruction with dynamic intravenous infusion of 75 mL of 370 mg% contrast media. Coronal and sagittal reconstructions included. Dose reduction was employed with automated exposure control. FINDINGS: Chest base: Normal. Liver: Normal size and contour. No suspicious lesion. Numerous cysts are present measuring up to 8.85 7.7 cm. Biliary tree: No extrahepatic biliary dilation. There is intrahepatic biliary dilation upstream from the largest hepatic cyst, new from the prior study. The gallbladder is nondistended. Spleen: Normal. Adrenals: Normal. Pancreas: Normal. Kidneys: Interval right nephrectomy. There is edema and fluid in the surgical bed but without evidence of a mass. No left renal lesion or hydronephrosis. Free fluid: None. Retroperitoneum and mesentery: No enlarged lymph nodes. Bowel: Normal caliber. The appendix is nondistended. Diverticuli are noted throughout the sigmoid colon. No stenotic lesion, mucosal thickening or adjacent fat stranding is noted to suggest diverticulitis. Vasculature: Atherosclerotic calcifications are seen in the aorta and its branches. The aorta is normal in caliber. Abdominal wall: Subcutaneous gas is present in the anterior abdominal wall were related to the patient's recent surgery. There is a lobulated hyperdense structure within the periumbilical/supraum bilical anterior abdominal wall measuring up to 4.3 x 3.9 x 8.2 cm. This abuts the cutaneous surface. Pelvic organs/viscera: No mass identified. The prostate is enlarged. Pelvic lymphadenopathy: None. Osseous structures: Mild degenerative change of the visualized spine is noted. [facility] EMERGENCY DEPARTMENT RADIOLOGY SYSTEM Daryl Monzon MD - 04/19/2024 Patient Name: NERY RODRIGUEZ : 1950 Exam Date/Time: 04/19/2024 09:22 Procedure: CT ABDOMEN PELVIS W CONTRAST Ordering Provider: HOLCOMB SCOTT Reason For Exam: bleeding from midline incision- s/p nephrectomy. CT ABDOMEN AND PELVIS WITH CONTRAST EXAM DATE AND TIME: 04/19/2024 9:22 AM EDT INDICATION: 73 years with bleeding from midline COMPARISON: 02/11/2023, 07/21/2023 TECHNIQUE: Transaxial sequence through the abdomen and pelvis with 3 mm reconstruction with dynamic intravenous infusion of 75 mL of 370 mg% contrast media. Coronal and sagittal reconstructions included. Dose reduction was employed with automated exposure control. FINDINGS: Chest base: Normal. Liver: Normal size and contour. No suspicious lesion. Numerous cysts are present measuring up to 8.85 7.7 cm. Biliary tree: No extrahepatic biliary dilation. There is intrahepatic biliary dilation upstream from the largest hepatic cyst, new from the prior study. The gallbladder is nondistended. Spleen: Normal. Adrenals: Normal. Pancreas: Normal. Kidneys: Interval right nephrectomy. There is edema and fluid in the surgical bed but without evidence of a mass. No left renal lesion or hydronephrosis. Free fluid: None. Retroperitoneum and mesentery: No enlarged lymph nodes. Bowel: Normal caliber. The appendix is nondistended. Diverticuli are noted throughout the sigmoid colon. No stenotic lesion, mucosal thickening or adjacent fat stranding is noted to suggest diverticulitis. Vasculature: Atherosclerotic calcifications are seen in the aorta and its branches. The aorta is normal in caliber. Abdominal wall: Subcutaneous gas is present in the anterior abdominal wall were related to the patient's recent surgery. There is a lobulated hyperdense structure within the periumbilical/supraum bilical anterior abdominal wall measuring up to 4.3 x 3.9 x 8.2 cm. This abuts the cutaneous surface. Pelvic organs/viscera: No mass identified. The prostate is enlarged. Pelvic lymphadenopathy: None. Osseous structures: Mild degenerative change of the visualized spine is noted. IMPRESSION: 1. Postoperative changes of interval right nephrectomy. Fluid and edema in the surgical bed. 2. Postoperative soft tissue gas in the anterior abdominal wall. A lobulated hyperdense collection is present concerning for hematoma; superimposed infection cannot be excluded by imaging. 3. Multiple liver cysts. There is new intrahepatic biliary dilation upstream for the largest cyst. Consider ERCP for further evaluation. 4. Prostatomegaly. Report Dictated on Electronically Signed By: Daryl Monzon MD Electronically Signed Date/Time: 04/19/2024 9:39 AM EDT [facility] Radiology Study observation (narrative) [facility] He alth CT Abdomen and Pelvis W cont rast IVOrdered By: Daryl Monzon on 04-19-2024 [facility] [employer] Work Phone: ED Nursing Noteon 04-19-2024 ED Nursing Note Midline abdominal incision with small portion of lower segment partially opened. Edges well approximated with no redness or swelling. Small hematoma above incision with no pain on palpation. Ecchymosis noted to lower abdomen from surgical sites. Pt denies pain fever and any signs of infection. Lower abdomen incision sealed with new dressing. Opening partially sealed on its own. With no drainage at this time. at bedside for assessment and wound photo to upload to ED physician note. Ash Lombardo RN 04/19/24 3542 Normal [facility] ED Provider Noteon 4 ED Provider Note EMERGENCY DEPARTMENT ENCOUNTER Pt Name: Nery Rodriguez Birthdate 1950 Date of evaluation: 04/19/2024 ED Provider: Van Holcomb MD CHIEF COMPLAINT Chief Complaint Patient presents with Wound Check Midline incision to abdomen from recent surgery with drainage. HISTORY OF PRESENT ILLNESS (Location/Symptom, Timing/Onset, Context/Setting, Quality, Duration, Modifying Factors, Severity) Note limiting factors. I wore appropriate PPE for the entirety of this encounter. HPI Nery Rodriguez is a 73 y.o. who presents to the emergency department chief complaint of bleeding from his midline abdominal incision. Patient is a week and a half postop from laparoscopic right radical nephrectomy with robotic assistance by Dr. Quintero from Urology on April 08. Denies fevers or chills. Patient was evaluated in the emergency department 6 days ago he reportedly had a slight drop in his hemoglobin to 10.4 from 11.9. Plan for [address] abdomen but patient reportedly was tired and left prior to treatment completion. Presented today for reevaluation. Denies any known bleeding disorder. Denies being on any anticoagulant or antiplatelet medications. Reports being able to urinate without difficulty. Nursing Notes were reviewed. Outside historians: Significant other REVIEW OF SYSTEMS Review of Systems Constitutional: Negative for fever. Respiratory: Negative for shortness of breath. Cardiovascular: Negative for chest pain. Gastrointestinal: Negative for abdominal pain and vomiting. Genitourinary: Negative for difficulty urinating, dysuria and frequency. Skin: Positive for wound. Neurological: Negative for light-headedness. Hematological: Does not bruise/bleed easily. Pertinent positives and negatives as per HPI PAST MEDICAL HISTORY Past Medical History: Diagnosis Date 2019 novel coronavirus disease (COVID-19) 02/18/2023 Abnormal EKG Allergic 01/15/1992 Anxiety Arthritis 02/13/2023 Emphysema lung (HCC) Enlarged prostate Hyperlipidemia Hypertension REM sleep behavior disorder Sepsis (HCC) SURGICAL HISTORY Past Surgical History: Procedure Laterality Date CYST REMOVAL 1970 Tailbone cyst CYSTOSCOPY 02/12/2023 C&P with stent KIDNEY SURGERY 02/15/2023 NEPHRECTOMY Right 04/08/2024 ROBOTIC RIGHT RADICAL NEPHRECTOMY - Right CURRENT MEDICATIONS Discharge Medication List as of 04/19/2024 9:56 AM CONTINUE these medications which have NOT CHANGED Details carbidopa-levodopa (Sinemet) 25-100 MG tablet Take 1 tablet by mouth 3 times daily., Starting Mon12/25/2023, Until Mon04/08/2024, Normal clonazePAM (KlonoPIN) 0.5 MG tablet Take 0.5 tablets (0.25 mg) by mouth Daily as needed for anxiety for up to 24 doses., Starting Mon03/19/2024, Normal cyclobenzaprine (Flexeril) 10 MG tablet Take 1 tablet (10 mg) by mouth Nightly as needed for muscle spasms., Starting Mon01/02/2023, Until Mon04/01/2024 at 2359, Normal docusate sodium (Colace) 100 MG capsule Take 1 capsule (100 mg) by mouth 2 times daily for 10 days., Starting Mon04/09/2024, Until Mon04/19/2024, Normal gabapentin (Neurontin) 400 MG capsule Take 1 capsule (400 mg) by mouth 3 times daily., Starting Mon04/10/2024, Until Mon04/10/2025, Normal loratadine (Claritin) 10 MG tablet Take 1 tablet (10 mg) by mouth daily., Starting Mon11/20/2023, Normal meloxicam (Mobic) 15 MG tablet Take by mouth Daily as needed., Starting Mon01/31/2023, Historical Med PARoxetine (Paxil) 10 MG tablet Take 1 tablet (10 mg) by mouth every morning., Starting Mon03/19/2024, Until 05/18/2024, Normal propranolol (Inderal) 20 MG tablet Take 1 tablet (20 mg) by mouth 2 times daily., Starting Mon02/20/2024, Until 08/18/2024, Normal rasagiline (Azilect) 0.5 MG tablet Take 1 tablet (0.5 mg) by mouth daily., Starting Mon12/25/2023, Until 03/24/2024, Normal tamsulosin (Flomax) 0.4 MG 24 hr capsule Take 1 capsule (0.4 mg) by mouth daily., Starting 11/13/2023, Normal telmisartan (MIcarDIS) 20 MG tablet Take 1 tablet (20 mg) by mouth daily., Starting Mon03/12/2024, Normal ALLERGIES Pollen extract and Ropinirole FAMILY HISTORY Family History Problem Relation Name Age of Onset Parkinsonism Mother Juhi Rodriguez High Blood Pressure Mother Juhi Rodriguez Depression Mother Juhi Rodriguez Hearing loss Mother Juhi Rodriguez Fainting Mother Juhi Rodriguez Hypertension Mother Juhi Rodriguez Mental illness Mother Juhi Rodriguez Heart disease Father Nery Rodriguez Sr. Bipolar disorder Sister Bailey Rodriguez Mental illness Sister Bailey Rodriguez SOCIAL HISTORY Social History Socioeconomic History Marital status: Tobacco Use Smoking status: Former Current packs/day: 0.00 Average packs/day: 1 pack/day for 25.0 years (25.0 ttl pk-yrs) Types: Cigarettes Start date: 11/26/1984 Quit date: 11/28/2008 Years since quittin.4 Smokeless tobacco: Current Tobacco comments: Current, daily use of nicotene pouches Vaping Use Vaping status: N (more content not included)... Normal [facility] CREATININE, SERUMon 04-14-20 Creatinine [Mass/Vol] 1.36 mg/dL High 0.66-1.25 [facility] Comment on above: Performed By: #### L [id number] ####Cruise Coordinator: DAI ANDERSON ([phone])[facility] ([facility])[address] [place] [address] GLOMERULAR FILTRATION RATE ML/MIN/1.73 SQ M.PREDICTED 55.3 mL/min/1.73m*2 Low >60.0 [facility] Comment on above: Result Comment: Calc ulation based on the Chronic Kidney Disease Epidemiology Collaboration (CKD-EPI) equation refit without adjustment for race Performed By: #### L [id number] ####Cruise Coordinator: DAI ANDERSON ([phone])[facility] ([facility])[address] [place] [address] [place] Creatinine [Mass/Vol]on 03-18 GFR/1.73 sq M.predicted MDRD (S/P/Bld) [Vol rate/Area] 55.3 mL/min/{1.73_m2} Low - PINF [facility] Comment on above: Calculation based on the Chronic Kidney Disease Epidemiology Collaboration (CKD-EPI) equation refit without adjustment for race Interpretation and review of laboratory results Abnormal [facility] ED Nursing Noteon 04-14-2024 ED Nursing Note Pt wants to leave. Doug Leon notified. Anette Marvin RN 04/14/24 0448 Normal [facility] ED Nursing Note Pt presented to triage window stating he is leaving. Pt encouraged to stay and receive treatment. Pt will be going back to room next Ene Morris RN 04/14/24 0005 Ene Morris RN 04/14/24 0014 Normal [facility] HEMOGLOBIN AND HEMATOCRIT, B LOODon 04-14-2024 Hematocrit (Bld) [Volume fraction] 31.2 % Low 40.0-52.0 [facility] Comment on above: Performed By: #### L [id number] ####Cruise Coordinator: DAI ANDERSON ([phone])[facility] ([facility])[address] [place] [address] [place] Hemoglobin (Bld) [Mass/Vol] 10.4 g/dL Low 13.0-18.0 [facility] Comment on above: Performed By: #### L [id number] ####Cruise Coordinator: DAI ANDERSON ([phone])[facility] ([facility])[address] [place] [address] [place] Hemoglobin (Bld) [Mass/Vol]o n 04-14-2024 Hematocrit (Bld) [Volume fraction] 31.2 % Low 40.0 - 52.0 % [facility] Interpretation and review of laboratory results Abnormal [facility] Laboratory - Chemistry and C hemistry - challengeon 04-14-2024 Creatinine [Mass/Vol] 1.36 mg/dL High 0.66 - 1.25 mg/dL [facility] Laboratory - Hematology and Cell countson 04-14-2024 Hemoglobin (Bld) [Mass/Vol] 10.4 g/dL Low 13.0 - 18.0 g/dL [facility] 36on 04-13-2024 36 S: Patient spoke wit h [facility] nurse regarding stitches from surgery B: Onset of symptoms/concern last night A: Right ROBOTIC RIGHT RADICAL NEPHRECTOMY on Sunday 04/08. Dressings have seamus changed as ordered. Last night he felt a pull on the incision, states it is now bleeding. Incision is 4 inches long. Bleeding from middle area where it looks like he popped a stitch were there is now a small hole about the half the size of an eraser. Bleeding is about enough to saturate a cotton ball in one minute. Changed dressing about 5 minutes ago and not bleeding through. Pain is minimal unless he is moving from sitting to standing. R: Paged provider on-call. Dr Small advised patient go to the [facility] emergency department. will drive her as advised. Patient also advised to place clean gauze over wound then clean cloth and hold pressure on the way to the emergency. Patient states understanding. Patient understands care advice. No further needs at this time. Patient instructed to call back with new or worsening symptoms. Reason for Disposition ? [1] Bleeding from incision AND [2] won't stop after 10 minutes of direct pressure Protocols used: Post-Op Incision Symptoms and [id number] Normal [facility] ED Nursing Noteon 04-13-2024 ED Nursing Note Pt alert/oriented x3 . Pt notified of the risks with leaving against medical advise. Pt notified of the risks of and disability. Anette Marvin RN 04/14/24 0502 Normal [facility] ED Provider Noteon 4 ED Provider Note Emergency Department Encounter [facility] EMERGENCY DEPT Patient: Nery Rodriguez : 1950 Date of Evaluation: 04/13/2024 ED Supervising Physician: Brayan Leon MD HPI: I independently examined and evaluated Nery Rodriguez. In brief, Nery Rodriguez is a 73 y.o. male that presents to the emergency department for post-op wound evaluation. Patient reports bleeding from site of recent nephrectomy. Focused exam: Awake, alert, no acute distress. Breathing comfortably on room air. Breath sounds clear to auscultation. Regular rate and rhythm. Abdomen soft, non-distended, non-tender. Moves all extremities equally. Distal pulses intact and equal bilaterally. EMERGENCY DEPARTMENT COURSE and DIFFERENTIAL DIAGNOSIS/MDM: Vitals: Vitals: 04/13/24 2212 04/14/24 0130 04/14/24 0134 04/14/24 0339 BP: (!) 145/81 (!) 159/80 (!) 159/80 (!) 163/82 BP Location: Left arm Patient Position: Sitting Pulse: 66 75 72 Resp: 16 16 16 Temp: 36.6 ?C (97.8 ?F) TempSrc: Temporal SpO2: 98% 96% 100% Weight: Height: Brief Course: The patient presented with a chief complaint of bleeding from surgical incision. Imaging ordered, but patient requested discharge prior to imaging. No bleeding in ED. HDS. Stable for discharge. Patient elected to leave prior to completion of evaluation as informed refusal. See resident note for details. Disposition: The patient will be discharged Critical Care Statement: Total critical care time today provided was at least 0 minutes. All diagnostic, treatment, and disposition decisions were made by myself in conjunction with the resident and/or STEPHON. For all further details of the patient's emergency department visit, please see their documentation. (Please note that portions of this note may have been completed with a voice recognition program. Efforts were made to edit the dictations but occasionally words are mis-transcribed.) Brayan Leon MD [employer] Brayan Leon MD 05/08/241937 [facility] ED Provider Note EMERGENCY DEPARTMENT ENCOUNTER Pt Name: Nery Rodriguez Birthdate 1950 Date of evaluation: 04/13/2024 ED Provider: Gustavo Hayes II, MD CHIEF COMPLAINT Chief Complaint Patient presents with Post-op Problem Pt reports to ED with post-op problem; pt reports has incision site bleeding. Bleeding is controlled at this time. Pt states he had a kidney removed on Monday. Pt is stable with even & unlabored respirations in triage. HISTORY OF PRESENT ILLNESS (Location/Symptom, Timing/Onset, Context/Setting, Quality, Duration, Modifying Factors, Severity) Note limiting factors. I wore appropriate PPE for the entirety of this encounter. HPI Nery Rodriguez is a 73 y.o. who presents to the emergency department with concerns for bleeding from his surgical site. Patient had a right-sided nephrectomy on 04/08/2024. He states that he felt something in his abdomen pop when he was sleeping on the night prior to arrival. He states that he has been having a trickle of blood from the wound since that time. He denies any fevers or chills, nausea or vomiting, or abdominal pain. Nursing Notes were reviewed. Limitations to history: Outside historians: REVIEW OF SYSTEMS Review of Systems Pertinent positives and negatives as per HPI. PAST MEDICAL HISTORY Past Medical History: Diagnosis Date 2019 novel coronavirus disease (COVID-19) 02/18/2023 Abnormal EKG Allergic 01/15/1992 Anxiety Arthritis 02/13/2023 Emphysema lung (HCC) Enlarged prostate Hyperlipidemia Hypertension REM sleep behavior disorder Sepsis (HCC) SURGICAL HISTORY Past Surgical History: Procedure Laterality Date CYST REMOVAL 1970 Tailbone cyst CYSTOSCOPY 02/12/2023 C&P with stent KIDNEY SURGERY 02/15/2023 NEPHRECTOMY Right 04/08/2024 ROBOTIC RIGHT RADICAL NEPHRECTOMY - Right CURRENT MEDICATIONS Discharge Medication List as of 04/14/2024 4:57 AM CONTINUE these medications which have NOT CHANGED Details carbidopa-levodopa (Sinemet) 25-100 MG tablet Take 1 tablet by mouth 3 times daily., Starting Mon12/25/2023, Until Mon04/08/2024, Normal clonazePAM (KlonoPIN) 0.5 MG tablet Take 0.5 tablets (0.25 mg) by mouth Daily as needed for anxiety for up to 24 doses., Starting 03/19/2024, Normal cyclobenzaprine (Flexeril) 10 MG tablet Take 1 tablet (10 mg) by mouth Nightly as needed for muscle spasms., Starting Mon01/02/2023, Until Mon04/01/2024 at 2359, Normal docusate sodium (Colace) 100 MG capsule Take 1 capsule (100 mg) by mouth 2 times daily for 10 days., Starting Mon04/09/2024, Until Mon04/19/2024, Normal gabapentin (Neurontin) 400 MG capsule Take 1 capsule (400 mg) by mouth 3 times daily., Starting Mon04/10/2024, Until Katerin 04/10/2025, Normal loratadine (Claritin) 10 MG tablet Take 1 tablet (10 mg) by mouth daily., Starting Mon11/20/2023, Normal meloxicam (Mobic) 15 MG tablet Take by mouth Daily as needed., Starting Mon01/31/2023, Historical Med oxyCODONE (Roxicodone) 5 MG immediate release tablet Take 1 tablet (5 mg) by mouth every 6 hours as needed for severe pain (7-10) for up to 5 days., Starting Mon04/09/2024, Until 04/14/2024 at 2359, Normal PARoxetine (Paxil) 10 MG tablet Take 1 tablet (10 mg) by mouth every morning., Starting Mon03/19/2024, Until 05/18/2024, Normal propranolol (Inderal) 20 MG tablet Take 1 tablet (20 mg) by mouth 2 times daily., Starting Mon02/20/2024, Until 08/18/2024, Normal rasagiline (Azilect) 0.5 MG tablet Take 1 tablet (0.5 mg) by mouth daily., Starting Mon12/25/2023, Until 03/24/2024, Normal tamsulosin (Flomax) 0.4 MG 24 hr capsule Take 1 capsule (0.4 mg) by mouth daily., Starting Mon11/13/2023, Normal telmisartan (MIcarDIS) 20 MG tablet Take 1 tablet (20 mg) by mouth daily., Starting Mon03/12/2024, Normal ALLERGIES Pollen extract and Ropinirole FAMILY HISTORY Family History Problem Relation Name Age of Onset Parkinsonism Mother Juhi Rodriguez High Blood Pressure Mother Juhi Rodriguez Depression Mother Juhi Rodriguez Hearing loss Mother Juhi Rodriguez Fainting Mother Juhi Rodriguez Hypertension Mother Juhi Rodriguez Mental illness Mother Juhi Rodriguez Heart disease Father Nery Rodriguez Sr. Bipolar disorder Sister Bailey Rodriguez Mental illness Sister Bailey Rodriguez SOCIAL HISTORY Social History Socioeconomic History Marital status: Tobacco Use Smoking status: Former Current packs/day: 0.00 Average packs/day: 1 pack/day for 25.0 years (25.0 ttl pk-yrs) Types: Cigarettes Start date: 11/26/1984 Quit date: 11/28/2008 Years since quittin.3 Smokeless tobacco: Current Tobacco comments: Current, daily use of nicotene pouches Vaping Use Vaping status: Never Used Substance and Sexual Activity Alcohol use: Not Currently Drug use: Never Comment: Caffeine: 1 cup of coffee; occasionally in afternoon Sexual activity: Not Currently Partners: Female control/protection: None Social Determinants of Health Financial Re (more content not included)... Normal [facility] [id number] 04-11-2024 [id number] noted [facility] [id number] 04-10-2024 [id number] I do agree that this time we will keep the blood pressure medication on hold and continue to monitor. Thank you for the update. And if you have any issues we can get you in sooner than your regular checkup. The other issue [facility] your gabapentin. Since you had a nephrectomy we will have to renally dose this medication. This means that we look at your kidney clearance numbers and we have to decrease the dose of the medication. The recommendation would be to go down to the gabapentin 400 mg and take 3 times a day. A new prescription has been sent to pharmacy. [facility] [id number] Last OV:12/26/23 Scheduled:06/06/24 [facility] BASIC METABOLIC PANELon 03-17 Anion gap [Moles/Vol] 9 mmol/L Normal 3-13 [facility] Comment on above: Performed By: #### L [id number] #### Cruise Coordinator: DAI ANDERSON ([id number]) [facility] ([facility]) [address] [place] [address] Calcium [Mass/Vol] 8.8 mg/dL Normal 8.4-10.4 [facility] Comment on above: Performed By: #### L [id number] #### Cruise Coordinator: DAI ANDERSON ([id number]) [facility] ([facility]) [address] [place] [address] [place] Chloride [Moles/Vol] 103 mmol/L Normal 98-107 [facility] Comment on above: Performed By: #### L [id number] #### Cruise Coordinator: DAI ANDERSON ([phone]) [facility]) [address] [place] [address] [place] CO2 [Moles/Vol] 20 mmol/L Low 22-30 [facility] Comment on above: Performed By: #### L [id number] #### Cruise Coordinator: DAI ANDERSON ([id number]) [facility] ([facility]) [address] [place] [address] [place] Creatinine [Mass/Vol] 1.52 mg/dL High 0.66-1.25 [facility] [facility] Comment on above: Performed By: #### L [id number] #### Cruise Coordinator: ADI ANDERSON ([id number]) [facility] [address] [place] [address] [place] GLOMERULAR FILTRATION RATE ML/MIN/1.73 SQ M.PREDICTED 48.4 mL/min/1.73m*2 Low >60.0 [facility] Comment on above: Result Comment: Calc ulation based on the Chronic Kidney Disease Epidemiology Collaboration (CKD-EPI) equation refit without adjustment for race Performed By: #### L [id number] #### Cruise Coordinator: DAI ANDERSON ([id number]) [facility] [address] [place] [address] [place] Glucose [Mass/Vol] 152 mg/dL High 70-100 [facility] Comment on above: Performed By: #### L [id number] #### Cruise Coordinator: DAI ANDERSON ([id number]) [facility] ([facility]) [address] [place] [address] [place] Potassium [Moles/Vol] 5.0 mmol/L Normal 3.5-5.1 [facility] Comment on above: Performed By: #### L [id number] #### Cruise Coordinator: DAI ANDERSON ([id number]) [facility] [address] [place] [address] Sodium [Moles/Vol] 132 mmol/L Low 135-145 [facility] Comment on above: Performed By: #### L [id number] #### Cruise Coordinator: DAI ANDERSON ([id number]) [facility] [address] Urea nitrogen [Mass/Vol] 23 mg/dL High 9-20 [facility] Comment on above: Performed By: #### L [id number] #### Cruise Coordinator: DAI ANDERSON ([id number]) [facility] ([facility]) [address] [place] [address] Basic metabolic 1998 panelon 04-09-2024 Anion gap [Moles/Vol] 9 mmol/L 3 - 13 mmol/L [facility] Calcium [Mass/Vol] 8.8 mg/dL 8.4 - 10. 4 mg/dL [facility] Chloride [Moles/Vol] 103 mmol/L 98 - 10 7 mmol/L [facility] CO2 [Moles/Vol] 20 mmol/L Low 22 - 30 mmol/L [facility] Creatinine [Mass/Vol] 1.52 mg/dL High 0.66 - 1.25 mg/dL [facility] GFR/1.73 sq M.predicted MDRD (S/P/Bld) [Vol rate/Area] 48.4 mL/min/{1.73_m2} Low - PINF [facility] Comment on above: Calculation based on the Chronic Kidney Disease Epidemiology Collaboration (CKD-EPI) equation refit without adjustment for race Glucose [Mass/Vol] 152 mg/dL High 70 - 100 mg/dL [facility] Interpretation and review of laboratory results Abnormal [facility] Potassium [Moles/Vol] 5.0 mmol/L 3.5 - 5.1 mmol/L [facility] Sodium [Moles/Vol] 132 mmol/L Low 135 - 145 mmol/L [facility] Urea nitrogen [Mass/Vol] 23 mg/dL High 9 - 20 mg/dL [facility] CBC (HEMOGRAM)on 04-09-2024 Erythrocyte distribution width (RBC) [Ratio] 12.0 % Normal 11.5-15.0 [facility] Comment on above: Performed By: #### L [id number] #### Cruise Coordinator: DAI ANDERSON ([id number]) [facility] [address] [place] [address] Hematocrit (Bld) [Volume fraction] 35.2 % Low 40.0-52.0 [facility] Comment on above: Performed By: #### L [id number] #### Cruise Coordinator: DAI ANDERSON ([id number]) [facility] [address] [place] [address] Hemoglobin (Bld) [Mass/Vol] 11.9 g/dL Low 13.0-18.0 [facility] Comment on above: Performed By: #### L [id number] #### Cruise Coordinator: DAI ANDERSON ([id number]) [facility] [address] [place] [address] MCH (RBC) [Entitic mass] 31.6 pg Normal 26.0-34.0 [facility] Comment on above: Performed By: #### L [id number] #### Cruise Coordinator: DAI ANDERSON ([id number]) [facility] [address] [place] [address] MCHC 33.8 % Normal 30.5-36.0 [facility] Comment on above: Performed By: #### L [id number] #### Cruise Coordinator: DAI ANDERSON ([id number]) [facility] [address] [place] [address] MCV (RBC) [Entitic vol] 93.6 fL Normal 77.0-99.0 [facility] Comment on above: Performed By: #### L [id number] #### Cruise Coordinator: DAI ANDERSON ([id number]) [facility] [address] [place] [address] Platelet mean volume (Bld) [Entitic vol] 9.6 fL Normal 9.0-12.7 [facility] Comment on above: Performed By: #### L [id number] #### Cruise Coordinator: DAI ANDERSON ([id number]) [facility] [address] [place] [address] Platelets (Bld) [#/Vol] 235 10*3/uL Normal 140-440 [facility] Comment on above: Performed By: #### L [id number] #### Cruise Coordinator: DAI ANDERSON ([id number]) [facility] [address] [place] [address] RBC (Bld) [#/Vol] 3.76 10*6/uL Low 4.40-5.90 [facility] Comment on above: Performed By: #### L [id number] #### Cruise Coordinator: DAI ANDERSON ([id number]) [facility] [address] [place] [address] WBC (Bld) [#/Vol] 13.2 10*3/uL High 3.6-10.7 [facility] Comment on above: Performed By: #### L [id number] #### Cruise Coordinator: DAI ANDERSON ([id number]) [facility] [address] [place] [address] CBC panel Auto (Bld)on 04-09 Erythrocyte distribution width (RBC) [Ratio] 12.0 % 11.5 - 15.0 % [facility] Hematocrit (Bld) [Volume fraction] 35.2 % Low 40.0 - 52.0 % [facility] Hemoglobin (Bld) [Mass/Vol] 11.9 g/dL Low 13.0 - 18.0 g/dL [facility] Interpretation and review of laboratory results Abnormal [facility] MCH (RBC) [Entitic mass] 31.6 pg 26. 0 - 34.0 pg [facility] MCHC (RBC) [Mass/Vol] 33.8 % 30.5 - 36.0 % [facility] MCV (RBC) [Entitic vol] 93.6 fL 77.0 - 99.0 fL [facility] Platelet mean volume (Bld) [Entitic vol] 9.6 fL 9.0 - 12.7 fL [facility] Platelets (Bld) [#/Vol] 235 10*3/uL 140 - 440 10*3/uL [facility] RBC (Bld) [#/Vol] 3.76 10*6/uL Low 4.40 - 5.9 0 10*6/uL [facility] WBC (Bld) [#/Vol] 13.2 10*3/uL High 3.6 - 10.7 10*3/uL [facility] IDNon 04-09-2024 IDN The patient is Moderately Stable - Low risk of patient condition declining or worsening The patient's goals for the shift include The clinical goals for the shift include Normal [facility] Nursing Noteon 04-09-2024 Nursing Note Patient given the AV S and this RN went over the AVS with the patient. Patient had no questions or concerns. PIV removed Normal [facility] Nursing Noteon 04-08-2024 Nursing Note Report called. updated. Dinner ordered. Normal [facility] Op Noteon 04-08-2024 Op Note DOS: April 08, 2024 Pre-op Diagnosis: rightMALIGNANT NEOPLASM OF KIDNEY, EXCEPT PELVIS Post-op Diagnosis:right MALIGNANT NEOPLASM OF KIDNEY, EXCEPT PELVIS Operation: right RADICAL NEPHRECTOMY (laparoscopic with robotic assistance) Surgeon : Conner Quintero M.D. Powerhouse Laborer: Reji canales Anesthesia: General Special Consideration: Modifier Indications:Nery Rodriguez is a 73 y.o. year-old male who was referred to me for treatment of a right sided renal mass. A CT scan revealed central, solid renal mass and large renal cyst. The patient was recommended to undergo nephrectomy with da Mae surgical robot. All risks, benefits and alternatives were discussed, and all questions were answered prior to proceeding. Individual considerations: Mass Size: 2.7cm Mass locatio and side: right inter-pole Vessel anomaly: single artery, double vein Intraoperative ultrasound: none EBL: 15 ml Procedure : Informed consent was obtained. Patient was given perioperative antibiotics and DVT prophylaxis in preop holding area. General anesthesia was administered. A Kamara catheter was placed. A nasogastrictube was placed by anesthesia. Patient was placed in the flank position . All the pressure points were padded and patient secured to the table with adhesive tapes. STEP 1; PORT PLACEMENT Pneumoperitoneum of 12 mmHg was created by placing a Veress needle through in hypochondrium. Using a visiport a 12-mm cannula the placed lateral to the mid calvicular line at the level midway between umbilicus and costal margin. A 30? binocular telescope, looking upward, was then placed through the camera port. All other ports were placed under direct vision. Three 8 mm robotic ports one onright side and two on left side of camera port, one 12 mm was placed just lateral to umbilicus and one 5 mm right port was placed at midline superior to umbilicus for liver retractor. After placing the ports the pneumoperitoneum pressure was decreased to 10 mmHg. The surgical cart was then docked to the ports. STEP 2; Exposure of kidney The peritoneum was incised from the lower pole of kidney to Hepatic flexure lateral to the white line of Toldt. The colon was then reflected medially to expose the ureter and gonadal vessels . Care was taken not to dissect in and lateral to fascia of Gerota. A plane of dissection was created between the ureter and the gonadal vein and ureter was followed superiorly to the renal hilum. The second part of duodenum was carefully reflected medially to expose the renal hilum. OPERATIVE FINDING 3 separate renal veins STEP 3; HILAR DISSECTION The renal hilum was carefully dissected to isolate the renal vessels. Single renal vein and single renal artery were found and isolated and skeletenized free of hilar fat. There was a second smaller renal vein, which was divided between hemolock clip and bipolar The renal artery was divided using 35mm vascular load da mae stapler. The renal vein was then divided in a similar fashion. STEP 4: Renal Dissection Next the upper pole attachments were divided using electrocautery. Bipolar was used for hemostasis. The adrenal did appear uninvolved and was spared. The lateral and infererior attachments were divided. The ureter was transected between hemolock clips. The specimen was now free. STEP 6; SPECIMEN RETRIEVAL The specimen was placed in a 15 endocatch bag. It was removed from the periumbilical port, after lengthening the incision proximal and distal. . The incision was closed using 0 looped PDS. . The fascia at 12 mm ports was closed with 0 VIcryl. Skin was closed by subcuticular 4-0 Monocryl. Patient tolerated the procedure well. Normal [facility] Progress Noteon 04-06-2024 Progress Note Chart review completed in order to place pre operative orders for anesthesia. EK04/01/24 ECG 12-LEAD 04/02/2024 12:15 PM (Final) Impression Sinus bradycardia Prolonged WV interval extreme right axis RIGHT BUNDLE BRANCH BLOCK Electronically Signed On 04-02-2024 12:15:14 EDT by Monse Katz Signed by: Monse Katz MD on 04/02/2024 12:15 PM ECHO and EF: 02/11/23 TRANSTHORACIC ECHOCARDIOGRAM (TTE) COMPLETE (CONTRAST/BUBBLE/3D PRN) 02/13/2023 4:52 PM (Final) Interpretation Summary Left Ventricle: Left ventricle size is normal. Moderately increased wall thickness. Mass index 2D is 130.1 g/m2. Findings consistent with moderate concentric hypertrophy. Low normal left ventricular systolic function. EF 3D is 52%. Global longitudinal strain is normal. Normal wall motion. Right Ventricle: Right ventricle is mildly dilated. Prominent moderator band noted. Moderately reduced systolic function. Tricuspid Valve: Normal RVSP. RVSP is 31 mmHg. Left Atrium: Left atrium is mildly dilated. LA Vol Index A/L is 35 mL/m2. Aorta: Normal sized sinuses of Valsalva. Mildly dilated annulus. Dilated ascending aorta. Ao ascending diameter is 4.0 cm. No significant valvular abnormalities. Signed by: Chris Madison MD on 02/13/2023 4:52 PM Labs: Lab Results Component Value Date WBC 6.7 04/01/2024 HGB 13.8 04/01/2024 HCT 41.5 04/01/2024 MCV 94.3 04/01/2024 PLT 265 04/01/2024 Lab Results Component Value Date NA 137 04/01/2024 K 3.9 04/01/2024 CL 101 04/01/2024 CO2 28 04/01/2024 BUN 13 04/01/2024 CREATININE 0.90 04/01/2024 GLUCOSE 90 04/01/2024 CALCIUM 9.5 04/01/2024 PROT 7.1 12/28/2023 BILITOT 0.8 12/28/2023 ALKPHOS 82 12/28/2023 AST 32 12/28/2023 ALT 6 12/28/2023 Past Medical History: Past Medical History: Diagnosis Date 2019 novel coronavirus disease (COVID-19) 02/18/2023 Abnormal EKG Allergic 01/15/1992 Anxiety Arthritis 02/13/2023 Emphysema lung (HCC) Enlarged prostate Hyperlipidemia Hypertension REM sleep behavior disorder Sepsis (HCC) Past Surgical History: Past Surgical History: Procedure Laterality Date CYST REMOVAL 1969 Tailbone cyst CYSTOSCOPY 02/12/2023 C&P with stent KIDNEY SURGERY 02/15/2023 Medications Prior to Admission: Prior to Admission medications Medication Sig Start Date End Date Taking? Authorizing Provider carbidopa-levodopa (Sinemet) 25-100 MG tablet Take 1 tablet by mouth 3 times daily. 12/25/23 04/01/24 Breanna Tolliver MD clonazePAM (KlonoPIN) 0.5 MG tablet Take 0.5 tablets (0.25 mg) by mouth Daily as needed for anxiety for up to 24 doses. 03/19/24 Tanmay Elliott DO cyclobenzaprine (Flexeril) 10 MG tablet Take 1 tablet (10 mg) by mouth Nightly as needed for muscle spasms. 01/02/23 04/01/24 Shawanda Costa MD gabapentin (Neurontin) 400 MG capsule Take 5 before bedime 01/15/24 Shawanda Costa MD loratadine (Claritin) 10 MG tablet Take 1 tablet (10 mg) by mouth daily. 11/20/23 Shawanda Costa MD meloxicam (Mobic) 15 MG tablet Take by mouth Daily as needed. 01/31/23 Historical Provider, PARoxetine (Paxil) 10 MG tablet Take 1 tablet (10 mg) by mouth every morning. 03/19/24 05/18/24 Tanmay Elliott DO propranolol (Inderal) 20 MG tablet Take 1 tablet (20 mg) by mouth 2 times daily. 02/20/24 08/18/24 Shawanda Costa MD rasagiline (Azilect) 0.5 MG tablet Take 1 tablet (0.5 mg) by mouth daily. Patient not taking: Reported on 01/24/2024 12/25/23 03/24/24 Breanna Tolliver MD tamsulosin (Flomax) 0.4 MG 24 hr capsule Take 1 capsule (0.4 mg) by mouth daily. 11/13/23 Shawanda Costa MD telmisartan (MIcarDIS) 20 MG tablet Take 1 tablet (20 mg) by mouth daily. 03/12/24 Shawanda Costa MD methylPREDNISolone (Medrol Dospak) 4 MG tablets 04/01/24 Historical Provider, Allergies: Pollen extract and Ropinirole Social History: TOBACCO: reports that he quit smoking about 15 years ago. His smoking use included cigarettes. He started smoking about 39 years ago. He has a 25 pack-year smoking history. He uses smokeless tobacco. ETOH: reports that he does not currently use alcohol. Social History Substance and Sexual Activity Drug Use Never Comment: Caffeine: 1 cup of coffee; occasionally in afternoon Family History: Family History Problem Relation Name Age of Onset Parkinsonism Mother Juhi Rodriguez High Blood Pressure Mother Juhisamantha Rodriguez Depression Mother Juhi Michael Hearing loss Mother Juhi Michael Fainting Mother Juhi Michael Hypertension Mother Juhi Michael Mental illness Mother Juhi Rodriguez Heart disease Father Nery Rodriguez Sr. Bipolar disorder Sister Bailey Rodriguez Mental illness Sister Bailey Rodriguez Normal [facility] ECG 12-LEADon 04-02-2024 ECG 12-LEAD IMPRESSION: Sinus bradycardia Prolonged WV interval extreme right axis RIGHT BUNDLE BRANCH BLOCK Electronically Signed On 04-02-2024 12:15:14 EDT by Monse Katz Normal [facility] BASIC METABOLIC PANELon 03-16 Anion gap [Moles/Vol] 8 mmol/L Normal 3-13 [facility] Comment on above: Performed By: #### L [id number] ####Cruise Coordinator: DAI ANDERSON ([id number])[facility] ([address] Calcium [Mass/Vol] 9.5 mg/dL Normal 8.4-10.4 [facility] Comment on above: Performed By: #### L [id number] ####Cruise Coordinator: DAI ANDERSON ([id number])[facility] ([facility])[address] [place] [address] Chloride [Moles/Vol] 101 mmol/L Normal 98-107 [facility] Comment on above: Performed By: #### L [id number] ####Cruise Coordinator: DAI ANDERSON ([id number])[facility] ([facility])[address] [place] [address] CO2 [Moles/Vol] 28 mmol/L Normal 22-30 [facility] Comment on above: Performed By: #### L [id number] ####Cruise Coordinator: DAI ANDERSON ([id number])[facility] ([facility])[address] [place] [address] Creatinine [Mass/Vol] 0.90 mg/dL Normal 0.66-1.25 [facility] Comment on above: Performed By: #### L AB15 ####Cruise Coordinator: DAI ANDESRON ([id number])[facility] ([facility])[address] [place] [address] GLOMERULAR FILTRATION RATE ML/MIN/1.73 SQ M.PREDICTED >90.0 Normal >60.0 [facility] Comment on above: Result Comment: Calc ulation based on the Chronic Kidney Disease Epidemiology Collaboration (CKD-EPI) equation refit without adjustment for race Performed By: #### L [id number] ####Cruise Coordinator: DAI ANDERSON ([id number])[facility] ([facility])[address] [place] [address] [place] Glucose [Mass/Vol] 90 mg/dL Normal 70-100 [facility] Comment on above: Performed By: #### L AB15 ####Cruise Coordinator: DAI ANDERSON ([id number])[facility] ([facility])[address] [place] [address] Potassium [Moles/Vol] 3.9 mmol/L Normal 3.5-5.1 [facility] Comment on above: Performed By: #### L AB15 ####Cruise Coordinator: DAI ANDERSON ([id number])[facility] ([facility])[address] [place] [address] Sodium [Moles/Vol] 137 mmol/L Normal 135-145 [facility] Comment on above: Performed By: #### L AB15 ####Cruise Coordinator: DAI ANDERSON ([id number])[facility])[address] [place] [address] Urea nitrogen [Mass/Vol] 13 mg/dL Normal 9-20 [facility] Comment on above: Performed By: #### L AB15 ####Cruise Coordinator: DAI ANDERSON ([id number])[facility])[address] [place] [address] BLOOD TYPE AND SCREEN GELon 04-01-2024 ABO GROUPING O Normal [facility] Comment on above: Performed By: #### L [id number] ####Cruise Coordinator: DAI ANDERSON ([id number])[facility] ([facility])[address] [place] [address] RH TYPE IN BLOOD Negative Normal [facility] Comment on above: Performed By: #### L [id number] ####Cruise Coordinator: DAI ANDERSON ([id number])[facility] ([facility])[address] [place] [address] CBC (HEMOGRAM)on 04-01-2024 Erythrocyte distribution width (RBC) [Ratio] 11.9 % Normal 11.5-15.0 [facility] Comment on above: Performed By: #### L [id number] ####Cruise Coordinator: DAI ANDERSON ([id number])[facility] ([facility])[address] [place] [address] Hematocrit (Bld) [Volume fraction] 41.5 % Normal 40.0-52.0 [facility] Comment on above: Performed By: #### L [id number] ####Cruise Coordinator: DAI ANDERSON ([id number])[facility])[address] [place] [address] Hemoglobin (Bld) [Mass/Vol] 13.8 g/dL Normal 13.0-18.0 [facility] Comment on above: Performed By: #### L [id number] ####Cruise Coordinator: DAI ANDERSON ([id number])[facility])[address] [place] [address] MCH (RBC) [Entitic mass] 31.4 pg Normal 26.0-34.0 [facility] Comment on above: Performed By: #### L [id number] ####Cruise Coordinator: DAI ANDERSON ([id number])[facility] ([facility])[address] [place] [address] MCHC 33.3 % Normal 30.5-36.0 [facility] Comment on above: Performed By: #### L [id number] ####Cruise Coordinator: DAI ANDERSON ([phone])[facility])[address] [place] [address] MCV (RBC) [Entitic vol] 94.3 fL Normal 77.0-99.0 [facility] Comment on above: Performed By: #### L [id number] ####Cruise Coordinator: DAI ANDERSON ([id number])[facility] ([facility])[address] [place] [address] Platelet mean volume (Bld) [Entitic vol] 9.4 fL Normal 9.0-12.7 [facility] Comment on above: Performed By: #### L [id number] ####Cruise Coordinator: DAI ANDERSON ([id number])[facility])[address] [place] [address] Platelets (Bld) [#/Vol] 265 10*3/uL Normal 140-440 [facility] Comment on above: Performed By: #### L [id number] ####Cruise Coordinator: DAI ANDERSON ([id number])[facility])[address] [place] [address] RBC (Bld) [#/Vol] 4.40 10*6/uL Normal 4.40-5.90 [facility] Comment on above: Performed By: #### L [id number] ####Cruise Coordinator: DAI ANDERSON ([id number])[facility] ([facility])[address] [place] [address] WBC (Bld) [#/Vol] 6.7 10*3/uL Normal 3.6-10.7 [facility] Comment on above: Performed By: #### L [id number] ####Cruise Coordinator: DAI ANDERSON ([id number])[facility] [place] [address] PREPROCINSon 04-01-2024 PREPROCINS Medication List Accurate as of April 01, 2024 2:44 PM. Always use your most recent med list. carbidopa-levodopa 25-100 MG tablet Commonly known as: Sinemet Take 1 tablet by mouth 3 times daily. Medication Adjustments for Surgery: Take morning of surgery clonazePAM 0.5 MG tablet Commonly known as: KlonoPIN Take 0.5 tablets (0.25 mg) by mouth Daily as needed for anxiety for up to 24 doses. Notes to patient: Ok to take day of surgery if needed cyclobenzaprine 10 MG tablet Commonly known as: Flexeril Take 1 tablet (10 mg) by mouth Nightly as needed for muscle spasms. Notes to patient: Ok to take night before surgery if needed gabapentin 400 MG capsule Commonly known as: Neurontin Take 5 before bedime Medication Adjustments for Surgery: Take night before surgery loratadine 10 MG tablet Commonly known as: Claritin Take 1 tablet (10 mg) by mouth daily. Medication Adjustments for Surgery: Take morning of surgery meloxicam 15 MG tablet Commonly known as: Mobic Notes to patient: Do not take for 5 days prior to surgery, last dose allowed 04/02/24 PARoxetine 10 MG tablet Commonly known as: Paxil Take 1 tablet (10 mg) by mouth every morning. Medication Adjustments for Surgery: Take morning of surgery propranolol 20 MG tablet Commonly known as: Inderal Take 1 tablet (20 mg) by mouth 2 times daily. Medication Adjustments for Surgery: Take morning of surgery rasagiline 0.5 MG tablet Commonly known as: Azilect Take 1 tablet (0.5 mg) by mouth daily. Notes to patient: Not taking tamsulosin 0.4 MG 24 hr capsule Commonly known as: Flomax Take 1 capsule (0.4 mg) by mouth daily. Medication Adjustments for Surgery: Take morning of surgery telmisartan 20 MG tablet Commonly known as: MIcarDIS Take 1 tablet (20 mg) by mouth daily. Medication Adjustments for Surgery: Hold morning of surgery Additional Instructions: You may take Tylenol for pain. NO Motrin, ibuprofen or Advil for 24 hours prior to surgery or longer if instructed by your surgeon. NO Aleve, Aspirin, or Naprosyn for 5 days prior to surgery or longer if instructed by your surgeon. Follow any instructions given to you by Dr. Quintero. Shower with an antibacterial soap such as Dial or Safeguard before coming to the hospital. No lotion, powder, deodorant or body spays. No hair products. Remove all jewelry and leave it at home. Wear loose comfortable clothing to go home in. You may brush your teeth morning of surgery. Do not wear contacts day of surgery. No marijuana (THC), smoking or alcohol for 24 hours prior to surgery. If you have specific questions, please call your surgeon. You will receive a call the day before your surgery to verify your arrival time and date. You will be asked to arrive at least two hours prior to your scheduled surgery time. Please bring your [facility] Surgical folder and medication list with you day of surgery. We encourage you to write down any questions you may have for the surgeon, anesthesiologist, or other members of the surgical team and bring it with you the day of surgery. Please bring photo ID and insurance information. No food after midnight. You may have clear liquids up to 2 hours prior to surgery including: -water -apple or cranberry juice (NO orange juice) -black coffee or clear tea (NO creamer or milk) -soda (carbonated beverages) -sports drinks Before arriving to the hospital, have up to 16 ounces of your favorite clear fluid, preferably a sports drink such as Gatorade or Powerade. WHEELCHAIR VAN DRIVER AND PARKING IN THE MAIN DECK ARE FREE DAY OF SURGERY. PARKING IN THE DECK-- AFTER PARKING TAKE THE ELEVATOR TO LEVEL ONE AND TAKE THE BRIDGE TO THE HOSPITAL. GO TO THE RIGHT AND GO AROUND THE CORNER TO THE SAME DAY SURGERY DESK AND CHECK IN THERE. IF GOING IN THE MAIN ENTRANCE-- TURN LEFT AND GO DOWN THE DESHPANDE TO THE H ELEVATORS AND TAKE THEM TO ONE, LEFT OFF THE ELEVATOR AND GO AROUND TO THE SAME DAY DESK AND CHECK IN. [facility] Progress Noteon 04-01-2024 Progress Note [employer]ING Nery Rodriguez : 1950 Primary Care Physician: Shawanda Costa MD The patient and/or family/surrogate voluntarily agreed to participate in ACP services. Patient?s cognitive capacity: intact Code Status: [x] [FULL CODE - Continue all advanced life support: CPR,intubation,invasi ve procedures] [_] [DNR-CCA - DO NOT do CPR, intubation] [_] [DNR-FIRE EXTINGUISHER MECHANIC - Comfort care only] [_] DNR form [was/was not] signed Summary of discussion: The patient health care POA/ surrogate is the following: Belle Rodriguez - . [Condition that instigated the ACP on this DOS, relevant PMH, functional status, goals of care, and whom this was discussed with including names and relationship to the patient, and any relevant advance care documentation discussion] I answered all the patient/family questions that I could within the range and scope of the current medical situation. We discussed the medical conditions, risks, benefits, outcomes, and goals of care at this time for the patient's medical issues at hand in the face of the patient's chronic issues and current presentation. Total time spent: 2 minutes were spent discussing the patient's resuscitation status, advance care planning, and end of life care, with patient and/or family/surrogate. Carol Rodriguez, FINISHING MACHINE TENDER - MEMORIAL COUNSELOR [employer] [facility] 04/01/2024, 3:02 PM [facility] ANTINUCLEAR ANTIBODIES DIREC Ton 03-01-2024 JOSE,DIRECT Positive Abnormal Negative [facility] Comment on above: Result Comment: Perf ormed at: - [facility] [address] [id number] Lean Manufacturing Engineer: Chester Rios PhD, Phone: [phone] Performed By: #### L 3677.3094, L500.4050, L501.6710, L505.7010, L4600.0100, L101.9900, L100.0100 #### [facility] [address] [place], [place], [id number] CCP IgG Antibodieson 024 CCP IgG Ab. 24 units High 0-19 [facility] Comment on above: Result Comment: Nega tive <20 Weak positive 20 - 39 Moderate positive 40 - 59 Strong positive >59 Performed at: [facility] [address] [id number] Lean Manufacturing Engineer: Chester Rios PhD, Phone: [phone] Performed By: #### L 3100.5475, L500.4050, L501.6710, L505.7010, L4600.0100, L101.9900, L100.0100 #### [facility] [address] [place], [place], [id number] CBC W/Diff, Automatedon 02-13 Absolute Lymph 1.22 X10 3/uL Normal 0.83-4.51 [facility] Comment on above: Performed By: #### L 3100.5475, L500.4050, L501.6710, L505.7010, L4600.0100, L101.9900, L100.0100 #### [facility] [address] [place], [place], [id number] Absolute Neut 3.4 X10 3/uL Normal 2.0-7.7 [facility] Comment on above: Performed By: #### L 3100.5475, L500.4050, L501.6710, L505.7010, L4600.0100, L101.9900, L100.0100 #### [facility] [address] [place], [place], [id number] Basophils/100 WBC (Bld) 0.7 % Normal 0-1 [facility] Comment on above: Performed By: #### L 3100.5475, L500.4050, L501.6710, L505.7010, L4600.0100, L101.9900, L100.0100 #### [facility] [address] [place], [address] Eosinophils/100 WBC (Bld) 2.8 % Normal 0-5 [facility] Comment on above: Performed By: #### L 3100.5475, L500.4050, L501.6710, L505.7010, L4600.0100, L101.9900, L100.0100 #### [facility] [address] [place], [address] Erythrocyte distribution width (RBC) [Ratio] 11.7 % Normal 11.6-14.6 [facility] Comment on above: Performed By: #### L 3100.5475, L500.4050, L501.6710, L505.7010, L4600.0100, L101.9900, L100.0100 #### [facility] [address] [place], [address] Hematocrit (Bld) [Volume fraction] 41.3 % Normal 40-54 [facility] Comment on above: Performed By: #### L 3100.5475, L500.4050, L501.6710, L505.7010, L4600.0100, L101.9900, L100.0100 #### [facility] [address] [place], [address] Hemoglobin (Bld) [Mass/Vol] 13.8 g/dL Normal 13.0-16.5 [facility] Comment on above: Performed By: #### L 3100.5475, L500.4050, L501.6710, L505.7010, L4600.0100, L101.9900, L100.0100 #### [facility] [address] [place] [place], [address] IG% 0.400 Normal 0.0-0.9 [facility] Comment on above: Result Comment: IG% - Immature Granulocytes (promyelocytes, myelocytes and metamyelocytes) > 1% indicates that a LEFT SHIFT is Present. Performed By: #### L 3100.5475, L500.4050, L501.6710, L505.7010, L4600.0100, L101.9900, L100.0100 #### [facility] [address] [place], [address] Lymphocytes/100 WBC (Bld) 22.6 % Normal 19-41 [facility] Comment on above: Performed By: #### L 3100.5475, L500.4050, L501.6710, L505.7010, L4600.0100, L101.9900, L100.0100 #### [facility] [address] [place], [address] MCH (RBC) [Entitic mass] 31.9 pg Normal 27.0-32.0 [facility] Comment on above: Performed By: #### L 3100.5475, L500.4050, L501.6710, L505.7010, L4600.0100, L101.9900, L100.0100 #### [facility] [address] [place], [address] MCHC (RBC) [Mass/Vol] 33.4 g/dL Normal 32-36 [facility] Comment on above: Performed By: #### L 3100.5475, L500.4050, L501.6710, L505.7010, L4600.0100, L101.9900, L100.0100 #### [facility] [address] [place], [address] MCV (RBC) [Entitic vol] 95.6 fL High 80-94 [facility] Comment on above: Performed By: #### L 3100.5475, L500.4050, L501.6710, L505.7010, L4600.0100, L101.9900, L100.0100 #### [facility] [address] [place], [address] Monocytes/100 WBC (Bld) 11.3 % High 0-10 [facility] Comment on above: Performed By: #### L 3100.5475, L500.4050, L501.6710, L505.7010, L4600.0100, L101.9900, L100.0100 #### [facility] [address] [place], [address] Neutrophils/100 WBC (Bld) 62.2 % Normal 47-70 [facility] Comment on above: Performed By: #### L 3100.5475, L500.4050, L501.6710, L505.7010, L4600.0100, L101.9900, L100.0100 #### [facility] [address] [place], [address] Nucleated RBC (Bld) [#/Vol] 0 10*3/uL Normal 0-5 [facility] Comment on above: Performed By: #### L 3100.5475, L500.4050, L501.6710, L505.7010, L4600.0100, L101.9900, L100.0100 #### [facility] [address] [place], [address] Platelet mean volume (Bld) [Entitic vol] 9.3 fL Normal 6.2-12.0 [facility] Comment on above: Performed By: #### L 3100.5475, L500.4050, L501.6710, L505.7010, L4600.0100, L101.9900, L100.0100 #### [facility] [address] [place], [address] Platelets (Bld) [#/Vol] 250 10*3/uL Normal 150-450 [facility] Comment on above: Performed By: #### L 3100.5475, L500.4050, L501.6710, L505.7010, L4600.0100, L101.9900, L100.0100 #### [facility] [address] [place], [address] RBC (Bld) [#/Vol] 4.32 10*6/uL Low 4.6-6.2 [facility] Comment on above: Performed By: #### L 3100.5475, L500.4050, L501.6710, L505.7010, L4600.0100, L101.9900, L100.0100 #### [facility] [address] [place], [address] RDW SD 41.3 fl Normal 35.1-43.9 [facility] Comment on above: Performed By: #### L 3100.5475, L500.4050, L501.6710, L505.7010, L4600.0100, L101.9900, L100.0100 #### [facility] [address] [place], [address] WBC (Bld) [#/Vol] 5.4 10*3/uL Normal 4.4-11.0 [facility] Comment on above: Performed By: #### L 3100.5475, L500.4050, L501.6710, L505.7010, L4600.0100, L101.9900, L100.0100 #### [facility] [address] [place], [address] CRPon 02-29-2024 C-REACTIVE PROT < 2.90 Normal 0.0-3.0 [facility] Comment on above: Result Comment: C-Re active Protein (CRP) provides useful information for the diagnosis, therapy and monitoring of inflammatory processes and associated diseases. For the evaluation of Relative Risk for Cardiovascular Disease, a High Sensitivity CRP (HSCRP) should be ordered. Performed By: #### L 3100.5475, L500.4050, L501.6710, L505.7010, L4600.0100, L101.9900, L100.0100 #### [facility] [address] [place], [address] Comprehensive Metabolic Prof [facility] 02-29-2024 Albumin [Mass/Vol] 3.7 g/dL Normal 3.2-5.0 [facility] Comment on above: Performed By: #### L 3100.5475, L500.4050, L501.6710, L505.7010, L4600.0100, L101.9900, L100.0100 #### [facility] [address] [place], [address] Albumin/Globulin [Mass ratio] 1.1 {ratio} Normal 0.9-2.4 [facility] Comment on above: Performed By: #### L 3100.5475, L500.4050, L501.6710, L505.7010, L4600.0100, L101.9900, L100.0100 #### [facility] [address] [place], [address] ALK P 79 U/L Normal 45-117 [facility] Comment on above: Performed By: #### L 3100.5475, L500.4050, L501.6710, L505.7010, L4600.0100, L101.9900, L100.0100 #### [facility] [address] [place], [address] ALT [Catalytic activity/Vol] 16 U/L Normal 16-61 [facility] Comment on above: Performed By: #### L 3100.5475, L500.4050, L501.6710, L505.7010, L4600.0100, L101.9900, L100.0100 #### [facility] [address] [place], [address] AST [Catalytic activity/Vol] 17 U/L Normal 15-37 [facility] Comment on above: Performed By: #### L 3100.5475, L500.4050, L501.6710, L505.7010, L4600.0100, L101.9900, L100.0100 #### [facility] [address] [place], [address] Bilirubin [Mass/Vol] 0.50 mg/dL Normal 0.20-1.00 [facility] Comment on above: Result Comment: For patients on eltrombopag therapy, use of Dimension [place] TBIL is not recommended. Performed By: #### L 3100.5475, L500.4050, L501.6710, L505.7010, L4600.0100, L101.9900, L100.0100 #### [facility] [address] [place], [address] BUN/CRE 12.1 RATIO Normal 10-20 [facility] Comment on above: Performed By: #### L 3100.5475, L500.4050, L501.6710, L505.7010, L4600.0100, L101.9900, L100.0100 #### [facility] [address] [place], [address] CA,Total 9.4 mg/dL Normal 8.5-10.1 [facility] Comment on above: Performed By: #### L 3100.5475, L500.4050, L501.6710, L505.7010, L4600.0100, L101.9900, L100.0100 #### [facility] [address] [place], [address] Chloride [Moles/Vol] 106 mmol/L Normal 98-107 [facility] Comment on above: Performed By: #### L 3100.5475, L500.4050, L501.6710, L505.7010, L4600.0100, L101.9900, L100.0100 #### [facility] [address] [place], [place], [id number] (002) CO2 [Moles/Vol] 30.0 mmol/L Normal 21.0-32.0 [facility] Comment on above: Performed By: #### L 3100.5475, L500.4050, L501.6710, L505.7010, L4600.0100, L101.9900, L100.0100 #### [facility] [address] [place], [place], [id number] (530) Creatinine [Mass/Vol] 1.07 mg/dL Normal 0.70-1.30 [facility] Comment on above: Result Comment: The validity of the calculated GFR GFRAA in patients over 70 years has not been determined. Clinical correlation is essential. Performed By: #### L 3100.5475, L500.4050, L501.6710, L505.7010, L4600.0100, L101.9900, L100.0100 #### [facility] [address] [place], [place], [id number] EST GFR - AA 87 mL/min Normal >60 [facility] Comment on above: Result Comment: Afri can [place] GFR Calc Performed By: #### L 3100.5475, L500.4050, L501.6710, L505.7010, L4600.0100, L101.9900, L100.0100 #### [facility] [address] [place], [place], [id number] GAP 3 Low 5-15 [facility] Comment on above: Performed By: #### L 3100.5475, L500.4050, L501.6710, L505.7010, L4600.0100, L101.9900, L100.0100 #### [facility] [address] [place], [place], [phone] (611) GFR/1.73 sq M.predicted among non-blacks MDRD (S/P/Bld) [Vol rate/Area] 72 mL/min/{1.73_m2} Normal >60 [facility] Comment on above: Result Comment: Non- GFR Calc Performed By: #### L 3100.5475, L500.4050, L501.6710, L505.7010, L4600.0100, L101.9900, L100.0100 #### [facility] [address] [place], [address] Globulin (S) [Mass/Vol] 3.5 g/dL Normal 2.2-4.2 [facility] Comment on above: Performed By: #### L 3100.5475, L500.4050, L501.6710, L505.7010, L4600.0100, L101.9900, L100.0100 #### [facility] [address] [place], [address] Glucose [Mass/Vol] 84 mg/dL Normal 74-106 [facility] Comment on above: Performed By: #### L 3100.5475, L500.4050, L501.6710, L505.7010, L4600.0100, L101.9900, L100.0100 #### [facility] [address] [place], [address] Potassium [Moles/Vol] 4.0 mmol/L Normal 3.5-5.1 [facility] Comment on above: Performed By: #### L 3100.5475, L500.4050, L501.6710, L505.7010, L4600.0100, L101.9900, L100.0100 #### [facility] [address] [place], [address] Sodium [Moles/Vol] 139 mmol/L Normal 136-145 [facility] Comment on above: Performed By: #### L 3100.5475, L500.4050, L501.6710, L505.7010, L4600.0100, L101.9900, L100.0100 #### [facility] [address] [place], [place], [id number] T PROT 7.2 g/dL Normal 6.4-8.2 [facility] Comment on above: Performed By: #### L 3100.5475, L500.4050, L501.6710, L505.7010, L4600.0100, L101.9900, L100.0100 #### [facility] [address] [place], [place], [id number] Urea nitrogen [Mass/Vol] 13 mg/dL Normal 7-18 [facility] Comment on above: Performed By: #### L 3100.5475, L500.4050, L501.6710, L505.7010, L4600.0100, L101.9900, L100.0100 #### [facility] [address] [place], [place], [id number] Erythrocyte Sed Rateon 02-28 SED RATE 2 mm/hr Normal 0-20 [facility] Comment on above: Performed By: #### L 3100.5475, L500.4050, L501.6710, L505.7010, L4600.0100, L101.9900, L100.0100 #### [facility] [address] [place], [place], [id number] Rheumatoid Factoron 02-29-20 24 RHEUMATOID FAC 11.0 IU/mL Normal <15 [facility] Comment on above: Performed By: #### L 3100.5475, L500.4050, L501.6710, L505.7010, L4600.0100, L101.9900, L100.0100 #### [facility] [address] [place], [place], [id number] CBC W Auto Differential pane l (Bld)Ordered By: Sarah Cobian on 12-28-2023 Basophils (Bld) [#/Vol] 0.0 10*3/uL 0.0 - 0.2 10*3/uL [facility] Basophils/100 WBC (Bld) 0.6 % 0.0 - 2.0 % [facility] Eosinophils (Bld) [#/Vol] 0.2 10*3/uL 0.0 - 0.5 10*3/uL [facility] Eosinophils/100 WBC (Bld) 4.9 % 0.0 - 6.0 % [facility] Erythrocyte distribution width (RBC) [Ratio] 11.9 % 11.5 - 15.0 % [facility] Hematocrit (Bld) [Volume fraction] 39.7 % Low 40.0 - 52.0 % [facility] Hemoglobin (Bld) [Mass/Vol] 13.7 g/dL 13.0 - 18.0 g/dL [facility] Immature granulocytes (Bld) [#/Vol] 0.0 10*3/uL NINF - 0.1 10*3/uL [facility] Immature granulocytes/100 WBC (Bld) 0.4 % 0.0 - 2.0 % [facility] Interpretation and review of laboratory results Abnormal [facility] Lymphocytes (Bld) [#/Vol] 1.3 10*3/uL 1.0 - 4.3 10*3/uL [facility] Lymphocytes/100 WBC (Bld) 28.8 % 15.0 - 45.0 % [facility] MCH (RBC) [Entitic mass] 32.2 pg 26. 0 - 34.0 pg [facility] MCHC (RBC) [Mass/Vol] 34.5 % 30.5 - 36.0 % [facility] MCV (RBC) [Entitic vol] 93.2 fL 77.0 - 99.0 fL [facility] Monocytes (Bld) [#/Vol] 0.5 10*3/uL 0.0 - 0.9 10*3/uL [facility] Monocytes/100 WBC (Bld) 9.9 % 5.0 - 13.0 % [facility] Neutrophils (Bld) [#/Vol] 2.6 10*3/uL 1.8 - 7.5 10*3/uL [facility] Neutrophils/100 WBC (Bld) 55.4 % 38.0 - 82.0 % [facility] Nucleated RBC/100 WBC (Bld) [Ratio] 0.0 % [facility] Platelet mean volume (Bld) [Entitic vol] 9.0 fL 9.0 - 12.7 fL [facility] Comment on above: MPV is a calculated measurement using platelet volume ratio Platelets (Bld) [#/Vol] 256 10*3/uL 140 - 440 10*3/uL [facility] RBC (Bld) [#/Vol] 4.26 10*6/uL Low 4.40 - 5.9 0 10*6/uL [facility] WBC (Bld) [#/Vol] 4.7 10*3/uL 3.6 - 10.7 10*3/uL [facility] Comprehensive metabolic 1998 panelon 12-28-2023 Albumin [Mass/Vol] 4.0 g/dL 3.5 - 5.0 g/dL [facility] ALP [Catalytic activity/Vol] 82 U/L 38 - 126 U/L [facility] ALT [Catalytic activity/Vol] 6 U/L 0 - 49 U/L [facility] Anion gap [Moles/Vol] 8 mmol/L 3 - 13 mmol/L [facility] AST [Catalytic activity/Vol] 32 U/L 15 - 46 U/L [facility] Bilirubin [Mass/Vol] 0.8 mg/dL 0.2 - 1 .3 mg/dL [facility] Calcium [Mass/Vol] 9.4 mg/dL 8.4 - 10. 4 mg/dL [facility] Chloride [Moles/Vol] 106 mmol/L 98 - 10 7 mmol/L [facility] CO2 [Moles/Vol] 26 mmol/L 22 - 30 mmol/L [facility] Creatinine [Mass/Vol] 1.03 mg/dL 0.66 - 1.25 mg/dL [facility] GFR/1.73 sq M.predicted MDRD (S/P/Bld) [Vol rate/Area] 77.2 mL/min/{1.73_m2} - PINF [facility] Comment on above: Calculation based on the Chronic Kidney Disease Epidemiology Collaboration (CKD-EPI) equation refit without adjustment for race Glucose [Mass/Vol] 98 mg/dL 70 - 100 mg/dL [facility] Interpretation and review of laboratory results Normal [facility] Potassium [Moles/Vol] 4.0 mmol/L 3.5 - 5.1 mmol/L [facility] Protein [Mass/Vol] 7.1 g/dL 6.3 - 8.2 g/dL [facility] Sodium [Moles/Vol] 139 mmol/L 135 - 145 mmol/L [facility] Urea nitrogen [Mass/Vol] 12 mg/dL 9 - 20 mg/dL [facility] ESR (Bld) [Velocity]on 12-27 Interpretation and review of laboratory results Abnormal [facility] Rheumatoid factoron 12-28-19 Rheumatoid factor Qn [facility] Rheumatoid factor Qnon 12-27 Interpretation and review of laboratory results Normal [facility] Sedimentation rate, automate don 12-28-2023 ESR (Bld) [Velocity] 14 mm/h High [facility] CBC W Auto Differential pane l (Bld)Ordered By: Loree Johnson on 12-18-2023 Basophils (Bld) [#/Vol] 0.0 10*3/uL 0.0 - 0.2 10*3/uL [facility] Basophils/100 WBC (Bld) 0.8 % 0.0 - 2.0 % [facility] Eosinophils (Bld) [#/Vol] 0.3 10*3/uL 0.0 - 0.5 10*3/uL [facility] Eosinophils/100 WBC (Bld) 5.1 % 0.0 - 6.0 % [facility] Erythrocyte distribution width (RBC) [Ratio] 12.1 % 11.5 - 15.0 % [facility] Hematocrit (Bld) [Volume fraction] 38.6 % Low 40.0 - 52.0 % [facility] Hemoglobin (Bld) [Mass/Vol] 13.4 g/dL 13.0 - 18.0 g/dL [facility] Immature granulocytes (Bld) [#/Vol] 0.0 10*3/uL NINF - 0.1 10*3/uL [facility] Immature granulocytes/100 WBC (Bld) 0.4 % 0.0 - 2.0 % [facility] Interpretation and review of laboratory results Abnormal [facility] Lymphocytes (Bld) [#/Vol] 1.2 10*3/uL 1.0 - 4.3 10*3/uL [facility] Lymphocytes/100 WBC (Bld) 22.5 % 15.0 - 45.0 % [facility] MCH (RBC) [Entitic mass] 32.8 pg 26. 0 - 34.0 pg [facility] MCHC (RBC) [Mass/Vol] 34.7 % 30.5 - 36.0 % [facility] MCV (RBC) [Entitic vol] 94.4 fL 77.0 - 99.0 fL [facility] Monocytes (Bld) [#/Vol] 0.6 10*3/uL 0.0 - 0.9 10*3/uL [facility] Monocytes/100 WBC (Bld) 11.2 % 5.0 - 13.0 % [facility] Neutrophils (Bld) [#/Vol] 3.1 10*3/uL 1.8 - 7.5 10*3/uL [facility] Neutrophils/100 WBC (Bld) 60.0 % 38.0 - 82.0 % [facility] Nucleated RBC/100 WBC (Bld) [Ratio] 0.0 % [facility] Platelet mean volume (Bld) [Entitic vol] 8.8 fL Low 9.0 - 12.7 fL [facility] Comment on above: MPV is a calculated measurement using platelet volume ratio Platelets (Bld) [#/Vol] 252 10*3/uL 140 - 440 10*3/uL [facility] RBC (Bld) [#/Vol] 4.09 10*6/uL Low 4.40 - 5.9 0 10*6/uL [facility] WBC (Bld) [#/Vol] 5.1 10*3/uL 3.6 - 10.7 10*3/uL [facility] Cobalamin (Vitamin B12) [Mas s/Vol]on 12-18-2023 Interpretation and review of laboratory results Abnormal [facility] Comprehensive metabolic 1998 panelon 12-18-2023 Albumin [Mass/Vol] 3.9 g/dL 3.5 - 5.0 g/dL [facility] ALP [Catalytic activity/Vol] 80 U/L 38 - 126 U/L [facility] ALT [Catalytic activity/Vol] 6 U/L 0 - 49 U/L [facility] Anion gap [Moles/Vol] 4 mmol/L 3 - 13 mmol/L [facility] AST [Catalytic activity/Vol] 26 U/L 15 - 46 U/L [facility] Bilirubin [Mass/Vol] 0.8 mg/dL 0.2 - 1 .3 mg/dL [facility] Calcium [Mass/Vol] 9.3 mg/dL 8.4 - 10. 4 mg/dL [facility] Chloride [Moles/Vol] 105 mmol/L 98 - 10 7 mmol/L [facility] CO2 [Moles/Vol] 29 mmol/L 22 - 30 mmol/L [facility] Creatinine [Mass/Vol] 0.96 mg/dL 0.66 - 1.25 mg/dL [facility] GFR/1.73 sq M.predicted MDRD (S/P/Bld) [Vol rate/Area] 84.0 mL/min/{1.73_m2} - PINF [facility] Comment on above: Calculation based on the Chronic Kidney Disease Epidemiology Collaboration (CKD-EPI) equation refit without adjustment for race Glucose [Mass/Vol] 93 mg/dL 70 - 100 mg/dL [facility] Potassium [Moles/Vol] 4.4 mmol/L 3.5 - 5.1 mmol/L [facility] Protein [Mass/Vol] 7.2 g/dL 6.3 - 8.2 g/dL [facility] Sodium [Moles/Vol] 137 mmol/L 135 - 145 mmol/L [facility] Urea nitrogen [Mass/Vol] 17 mg/dL 9 - 20 mg/dL [facility] Iron and Iron binding capaci ty panelon 12-18-2023 Iron [Mass/Vol] 119 ug/dL 49 - 181 ug/dL [facility] Lipid 1996 panelon 4 Cholesterol [Mass/Vol] 191 mg/dL NINF - 200 mg/dL [facility] Cholesterol in HDL [Mass/Vol] 52 mg/dL 40 - 60 mg/dL [facility] Cholesterol in LDL [Mass/Vol] 120 mg/dL High 0 - <100 [facility] Cholesterol.total/Choles terol in HDL [Mass ratio] 4 {ratio} [facility] Comment on above: Ref Range: < 3 Low Risk for CHD 3-6 Mod Risk for CHD > 6 High Risk for CHD Interpretation and review of laboratory results Abnormal [facility] Triglyceride [Mass/Vol] 93 mg/dL NINF - 150 mg/dL [facility] No Panel Informationon 12-17 Interpretation and review of laboratory results Normal [facility] Vitamin B12on 12-18-2023 Cobalamin (Vitamin B12) [Mass/Vol] 933 pg/mL High 239 - 931 pg/mL [facility] No Panel Informationon 04-04 There is no interpretation needed for this exam. IMAGING Bacteria identified Cx Nom ( Bld)Ordered By: Daya Olmstead on 02-14-2023 Interpretation and review of laboratory results Abnormal [facility] Blood Collection Site: Right Antecubital [facility] CBC W Auto Differential pane l (Bld)Ordered By: Courtney Goncalves on 02-14-2023 Basophils (Bld) [#/Vol] 0.0 10*3/uL 0.0 - 0.2 10*3/uL [facility] Basophils/100 WBC (Bld) 0.0 % 0.0 - 2.0 % [facility] Eosinophils (Bld) [#/Vol] 0.0 10*3/uL 0.0 - 0.5 10*3/uL [facility] Eosinophils/100 WBC (Bld) 0.4 % Low 1.0 - 6.0 % [facility] Erythrocyte distribution width (RBC) [Ratio] 13.0 % 11.5 - 14.5 % [facility] Hematocrit (Bld) [Volume fraction] 31.8 % Low 40.0 - 52.0 % [facility] Hemoglobin (Bld) [Mass/Vol] 10.9 g/dL Low 13.0 - 18.0 g/dL [facility] Interpretation and review of laboratory results Abnormal [facility] Lymphocytes (Bld) [#/Vol] 1.0 10*3/uL 1.0 - 4.3 10*3/uL [facility] Lymphocytes/100 WBC (Bld) 9.5 % Low 20.0 - 40.0 % [facility] MCH (RBC) [Entitic mass] 31.8 pg 26. 0 - 34.0 pg [facility] MCHC (RBC) [Mass/Vol] 34.3 % 32.0 - 36.0 % [facility] MCV (RBC) [Entitic vol] 92.5 fL 80.0 - 98.0 fL [facility] Monocytes (Bld) [#/Vol] 0.7 10*3/uL 0.0 - 0.8 10*3/uL [facility] Monocytes/100 WBC (Bld) 6.4 % 2.0 - 10.0 % [facility] Neutrophils (Bld) [#/Vol] 8.7 10*3/uL High 1.8 - 7.0 10*3/uL [facility] Neutrophils/100 WBC (Bld) 83.7 % High 40.0 - 80.0 % [facility] Nucleated RBC/100 WBC (Bld) [Ratio] 0.0 % [facility] Platelet mean volume (Bld) [Entitic vol] 8.3 fL 7.4 - 12.4 fL [facility] Platelets (Bld) [#/Vol] 199 10*3/uL 140 - 440 10*3/uL [facility] RBC (Bld) [#/Vol] 3.44 10*6/uL Low 4.40 - 5.9 0 10*6/uL [facility] WBC (Bld) [#/Vol] 10.4 10*3/uL 3.6 - 10.7 10*3/uL [facility] Comprehensive metabolic 1998 panelon 02-14-2023 Albumin [Mass/Vol] 2.8 g/dL Low 3.5 - 5.0 g/dL [facility] ALP [Catalytic activity/Vol] 63 U/L 38 - 126 U/L [facility] ALT [Catalytic activity/Vol] 30 U/L 0 - 49 U/L [facility] Anion gap [Moles/Vol] 3 mmol/L 3 - 13 mmol/L [facility] AST [Catalytic activity/Vol] 39 U/L 15 - 46 U/L [facility] Bilirubin [Mass/Vol] 0.3 mg/dL 0.2 - 1 .3 mg/dL [facility] Calcium [Mass/Vol] 8.1 mg/dL Low 8.4 - 10. 4 mg/dL [facility] Chloride [Moles/Vol] 106 mmol/L 98 - 10 7 mmol/L [facility] CO2 [Moles/Vol] 26 mmol/L 22 - 30 mmol/L [facility] Creatinine [Mass/Vol] 0.93 mg/dL 0.66 - 1.25 mg/dL [facility] GFR/1.73 sq M.predicted MDRD (S/P/Bld) [Vol rate/Area] 87.8 mL/min/{1.73_m2} - PINF [facility] Comment on above: Calculation based on the Chronic Kidney Disease Epidemiology Collaboration (CKD-EPI) equation refit without adjustment for race Glucose [Mass/Vol] 117 mg/dL High 70 - 100 mg/dL [facility] Interpretation and review of laboratory results Abnormal [facility] Potassium [Moles/Vol] 3.7 mmol/L 3.5 - 5.1 mmol/L [facility] Protein [Mass/Vol] 5.6 g/dL Low 6.3 - 8.2 g/dL [facility] Sodium [Moles/Vol] 135 mmol/L 135 - 145 mmol/L [facility] Urea nitrogen [Mass/Vol] 25 mg/dL High 9 - 20 mg/dL [facility] Laboratory - Microbiology an d Antimicrobial susceptibilityOrdered By: Daya Olmstead on 02-14-2023 Bacteria identified Cx Nom (Bld) Enterococcus faecalis Critically abnormal [facility] Comment on above: This is an edited result. Previous organism was Gram-positive cocci on 02/12/2023 at 0846 EDT. Bacteria identified Cx Nom ( U)Ordered By: Vannessa Lu on 02-13-2023 Interpretation and review of laboratory results Abnormal [facility] CBC W Auto Differential pane l (Bld)Ordered By: Benja Rodríguez on 02-13-2023 Basophils (Bld) [#/Vol] 0.0 10*3/uL 0.0 - 0.2 10*3/uL [facility] Basophils/100 WBC (Bld) 0.0 % 0.0 - 2.0 % [facility] Eosinophils (Bld) [#/Vol] 0.0 10*3/uL 0.0 - 0.5 10*3/uL [facility] Eosinophils/100 WBC (Bld) 0.0 % Low 1.0 - 6.0 % [facility] Erythrocyte distribution width (RBC) [Ratio] 13.1 % 11.5 - 14.5 % [facility] Hematocrit (Bld) [Volume fraction] 32.6 % Low 40.0 - 52.0 % [facility] Hemoglobin (Bld) [Mass/Vol] 11.0 g/dL Low 13.0 - 18.0 g/dL [facility] Interpretation and review of laboratory results Abnormal [facility] Lymphocytes (Bld) [#/Vol] 0.5 10*3/uL Low 1.0 - 4.3 10*3/uL [facility] Lymphocytes/100 WBC (Bld) 3.5 % Low 20.0 - 40.0 % [facility] MCH (RBC) [Entitic mass] 31.4 pg 26. 0 - 34.0 pg [facility] MCHC (RBC) [Mass/Vol] 33.6 % 32.0 - 36.0 % [facility] MCV (RBC) [Entitic vol] 93.4 fL 80.0 - 98.0 fL [facility] Monocytes (Bld) [#/Vol] 0.6 10*3/uL 0.0 - 0.8 10*3/uL [facility] Monocytes/100 WBC (Bld) 4.2 % 2.0 - 10.0 % [facility] Neutrophils (Bld) [#/Vol] 12.5 10*3/uL High 1.8 - 7.0 10*3/uL [facility] Neutrophils/100 WBC (Bld) 92.3 % High 40.0 - 80.0 % [facility] Nucleated RBC/100 WBC (Bld) [Ratio] 0.0 % [facility] Platelet mean volume (Bld) [Entitic vol] 8.3 fL 7.4 - 12.4 fL [facility] Platelets (Bld) [#/Vol] 156 10*3/uL 140 - 440 10*3/uL [facility] RBC (Bld) [#/Vol] 3.50 10*6/uL Low 4.40 - 5.9 0 10*6/uL [facility] WBC (Bld) [#/Vol] 13.6 10*3/uL High 3.6 - 10.7 10*3/uL [facility] Comprehensive metabolic 1998 panelon 02-13-2023 Albumin [Mass/Vol] 2.9 g/dL Low 3.5 - 5.0 g/dL [facility] ALP [Catalytic activity/Vol] 69 U/L 38 - 126 U/L [facility] ALT [Catalytic activity/Vol] 22 U/L 0 - 49 U/L [facility] Anion gap [Moles/Vol] -1 mmol/L Low 3 - 13 mmol/L [facility] AST [Catalytic activity/Vol] 47 U/L High 15 - 46 U/L [facility] Bilirubin [Mass/Vol] 0.4 mg/dL 0.2 - 1 .3 mg/dL [facility] Calcium [Mass/Vol] 8.0 mg/dL Low 8.4 - 10. 4 mg/dL [facility] Chloride [Moles/Vol] 106 mmol/L 98 - 10 7 mmol/L [facility] CO2 [Moles/Vol] 26 mmol/L 22 - 30 mmol/L [facility] Creatinine [Mass/Vol] 0.92 mg/dL 0.66 - 1.25 mg/dL [facility] GFR/1.73 sq M.predicted MDRD (S/P/Bld) [Vol rate/Area] 88.9 mL/min/{1.73_m2} - PINF [facility] Comment on above: Calculation based on the Chronic Kidney Disease Epidemiology Collaboration (CKD-EPI) equation refit without adjustment for race Glucose [Mass/Vol] 134 mg/dL High 70 - 100 mg/dL [facility] Interpretation and review of laboratory results Abnormal [facility] Potassium [Moles/Vol] 4.3 mmol/L 3.5 - 5.1 mmol/L [facility] Protein [Mass/Vol] 5.8 g/dL Low 6.3 - 8.2 g/dL [facility] Sodium [Moles/Vol] 132 mmol/L Low 135 - 145 mmol/L [facility] Urea nitrogen [Mass/Vol] 26 mg/dL High 9 - 20 mg/dL [facility] - Microbiology an d Antimicrobial susceptibilityOrdered By: Vannessa Lu on 02-13-2023 Bacteria identified Cx Nom (U) Normal urogenital yuliet present [facility] Bacteria identified Cx Nom (U) 10,000-50,000 CFU/mL Enterococcus faecalis Abnormal [facility] US Heart TransthoracicOrdere d By: Chris [facility] on 02-13-2023 Ao Root Index 1.81 cm/m2 [facility] h Work Phone: Aortic Root 4.1 cm [facility] Work Phone: Ascending Aorta 4.0 cm [facility] Work Phone: Ascending Aorta Index 1.77 cm/m2 [facility] Work Phone: AV Area by Peak Velocity 2.6 cm2 [facility] Work Phone: AV Area by VTI 2.8 cm2 [facility] Work Phone: [phone] AV Mean Gradient 4 mmHg [facility] Work Phone: [phone] AV Mean Velocity 0.9 m/s [facility] Work Phone: [phone] AV Peak Gradient 6 mmHg [facility] Work Phone: [phone] AV Peak Velocity 1.3 m/s [facility] Work Phone: [phone] AV Velocity Ratio 0.69 [facility] Work Phone: [phone] AV VTI 30.0 cm [facility] Work Phone: [phone] MARKUS/BSA Peak Velocity 1.2 cm2/m2 [facility] Work Phone: [phone] MARKUS/BSA VTI 1.2 cm2/m2 [facility] Work Phone: [phone] E/E' Lateral 9.00 [facility] Work Phone: [phone] E/E' Ratio (Averaged) 10.93 [facility] Work Phone: [phone] E/E' Septal 12.86 [facility] Work Phone: [phone] EF 3D 52 % [facility] Work Phone: [phone] EF BP 46 % Abnormal 55 - 100 % [facility] Work Phone: [phone] Est. RA Pressure 3 [facility] Work Phone: [phone] Fractional Shortening 2D 53 % 28 - 44 % [facility] Work Phone: [phone] Global Longitudinal Strain -22.7 % [facility] Work Phone: [phone] Global Longitudinal Strain -20.7 % [facility] Work Phone: [phone] Global Longitudinal Strain -22.0 % [facility] Work Phone: [phone] Interpretation and review of laboratory results Abnormal [facility] Work Phone: [phone] IVC Diameter 2.0 cm [facility] Work Phone: [phone] IVSd 1.6 cm Abnormal 0.6 - 1.0 cm [facility] Work Phone: [phone] LA Volume 2C 82 mL Abnormal 18 - 58 mL [facility] Work Phone: LA Volume 4C 68 mL Abnormal 18 - 58 mL [facility] Work Phone: LA Volume A/L 80 mL [facility] Work Phone: LA Volume BP 76 mL Abnormal 18 - 58 mL [facility] Work Phone: LA Volume Index 2C 36 mL/m2 Abnormal 16 - 34 mL/m2 [facility] Work Phone: LA Volume Index 4C 30 mL/m2 16 - 34 mL/m2 [facility] Work Phone: LA Volume Index A/L 35 mL/m2 16 - 34 mL/m2 [facility] Work Phone: LA Volume Index BP 34 ml/m2 16 - 34 ml/m2 [facility] Work Phone: LV E' Lateral Velocity 10 cm/s [facility] Work Phone: LV E' Septal Velocity 7 cm/s [facility] Work Phone: LV EDV A2C 129 mL [facility] Work Phone: LV EDV A4C 150 mL [facility] Work Phone: LV EDV BP 140 mL 67 - 155 mL [facility] Work Phone: LV EDV Index A2C 57 mL/m2 [facility] Work Phone: LV EDV Index A4C 66 mL/m2 [facility] Work Phone: LV EDV Index BP 62 mL/m2 [facility] Work Phone: LV Ejection Fraction A2C 43 % [facility] Work Phone: LV Ejection Fraction A4C 49 % [facility] Work Phone: LV ESV A2C 73 mL [facility] Work Phone: LV ESV A4C 76 mL [facility] Work Phone: LV ESV BP 75 mL Abnormal 22 - 58 mL [facility] Work Phone: LV ESV Index A2C 32 mL/m2 [facility] Work Phone: LV ESV Index A4C 34 mL/m2 [facility] Work Phone: LV ESV Index BP 33 mL/m2 [facility] Work Phone: LV Mass 2D 294.1 g Abnormal 88 - 224 g [facility] Work Phone: LV Mass 2D Index 130.1 g/m2 Abnormal 49 - 115 g/m2 [facility] Work Phone: LV RWT Ratio 0.60 [facility] Work Phone: LVIDd 4.7 cm 4.2 - 5.9 cm [facility] Work Phone: LVIDd Index 2.08 cm/m2 [facility] Work Phone: LVIDs 2.2 cm [facility] Work Phone: LVIDs Index 0.97 cm/m2 [facility] Work Phone: LVOT Area 3.5 cm2 [facility] Work Phone: LVOT Cardiac Output 4.9 liter/mi nut e [facility] Work Phone: LVOT Diameter 2.1 cm [facility] Work Phone: LVOT Mean Gradient 2 mmHg [facility] Work Phone: LVOT Peak Gradient 3 mmHg [facility] Work Phone: LVOT Peak Velocity 0.9 m/s [facility] Work Phone: LVOT Stroke Volume Index 36.5 mL/m2 [facility] Work Phone: LVOT SV 82.4 ml [facility] Work Phone: LVOT VTI 23.8 cm [facility] Work Phone: LVOT:AV VTI Index 0.79 [facility] Work Phone: LVPWd 1.4 cm Abnormal 0.6 - 1.0 cm [facility] Work Phone: [phone] MV A Velocity 0.95 m/s [facility] Work Phone: [phone] MV E Velocity 0.90 m/s [facility] Work Phone: [phone] MV E Wave Deceleration Time 240.0 ms [facility] Work Phone: [phone] MV E/A 0.95 [facility] Work Phone: [phone] Pulm Vein A Duration 137.0 ms [facility] Work Phone: [phone] Pulm Vein A Velocity 0.3 m/s [facility] Work Phone: [phone] Pulm Vein Peak D Velocity 0.5 m/s [facility] Work Phone: [phone] Pulm Vein Peak S Velocity 0.5 m/s [facility] Work Phone: [phone] Pulm Vein S/D 1.0 [facility] Work Phone: RA Area 4C 69.7 mL [facility] Work Phone: [phone] RA Area 4C 69.0 mL [facility] Work Phone: [phone] RV Basal Dimension 5.6 cm [facility] Work Phone: [phone] RV Free Wall Peak S' 17 cm/s [facility] Work Phone: [phone] RV Mid Dimension 4.2 cm [facility] Work Phone: [phone] RVSP 31 mmHg [facility] Work Phone: [phone] Sinotubular Junction 2.8 cm [facility] Work Phone: [phone] TAPSE 2.4 cm 1.7 cm [facility] Work Phone: [phone] TR Max Velocity 2.66 m/s [facility] Work Phone: [phone] TR Peak Gradient 28 mmHg [facility] Work Phone: [phone] [facility] Work Phone: [phone] US Heart Transthoracicon Left Ventricle: Left ventricle size is normal. Moderately increased wall thickness. Mass index 2D is 130.1 g/m2. Findings consistent with moderate concentric hypertrophy. Low normal left ventricular systolic function. EF 3D is 52%. Global longitudinal strain is normal. Normal wall motion. Right Ventricle: Right ventricle is mildly dilated. Prominent moderator band noted. Moderately reduced systolic function. Tricuspid Valve: Normal RVSP. RVSP is 31 mmHg. Left Atrium: Left atrium is mildly dilated. LA Vol Index A/L is 35 mL/m2. Aorta: Normal sized sinuses of Valsalva. Mildly dilated annulus. Dilated ascending aorta. Ao ascending diameter is 4.0 cm. No significant valvular abnormalities. Left Ventricle Left ventricle size is normal. Moderately increased wall thickness. Mass index 2D is 130.1 g/m2. Findings consistent with moderate concentric hypertrophy. Low normal left ventricular systolic function. EF 3D is 52%. Global longitudinal strain is normal. Normal wall motion. Right Ventricle Right ventricle is mildly dilated. Prominent moderator band noted. Moderately reduced systolic function. Left Atrium Left atrium is mildly dilated. LA Vol Index A/L is 35 mL/m2. Right Atrium Right atrium size is normal. IVC/SVC IVC diameter is normal and decreases greater than 50% during inspiration; therefore the estimated right atrial pressure is normal (~3 mmHg). Mitral Valve Valve structure is normal. Trace regurgitation. No stenosis noted. Tricuspid Valve Valve structure is normal. Trace regurgitation. Normal RVSP. RVSP is 31 mmHg. Aortic Valve Trileaflet. No cusp thickening. No cusp calcification. Trace regurgitation. No stenosis. Pulmonic Valve Valve structure is normal. Trace regurgitation. Ascending Aorta Normal sized sinuses of Valsalva. Mildly dilated annulus. Dilated ascending aorta. Ao ascending diameter is 4.0 cm. Pericardium No pericardial effusion. Septum No interatrial shunt visualized on color Doppler. Study Details Image quality: good. Heart rate: 61 bpm. Blood pressure: 113/51 mmHg. Ultrasound enhancement agent was given to enhance imaging. Echo Additional Conclusions No significant valvular abnormalities. CV CPACS CBC W Auto Differential pane l (Bld)Ordered By: Conner Ruiz on 02-12-2023 Basophils (Bld) [#/Vol] 0.1 10*3/uL 0.0 - 0.2 10*3/uL [place] Basophils/100 WBC (Bld) 0.5 % 0.0 - 2.0 % [place] Eosinophils (Bld) [#/Vol] 0.0 10*3/uL 0.0 - 0.5 10*3/uL [facility] Eosinophils/100 WBC (Bld) 0.1 % Low 1.0 - 6.0 % [facility] Erythrocyte distribution width (RBC) [Ratio] 13.1 % 11.5 - 14.5 % [facility] Hematocrit (Bld) [Volume fraction] 34.2 % Low 40.0 - 52.0 % [facility] Hemoglobin (Bld) [Mass/Vol] 11.5 g/dL Low 13.0 - 18.0 g/dL [facility] Interpretation and review of laboratory results Abnormal [facility] Lymphocytes (Bld) [#/Vol] 0.7 10*3/uL Low 1.0 - 4.3 10*3/uL [facility] Lymphocytes/100 WBC (Bld) 3.9 % Low 20.0 - 40.0 % [facility] MCH (RBC) [Entitic mass] 31.8 pg 26. 0 - 34.0 pg [facility] MCHC (RBC) [Mass/Vol] 33.7 % 32.0 - 36.0 % [facility] MCV (RBC) [Entitic vol] 94.1 fL 80.0 - 98.0 fL [facility] Monocytes (Bld) [#/Vol] 1.4 10*3/uL High 0.0 - 0.8 10*3/uL [facility] Monocytes/100 WBC (Bld) 8.1 % 2.0 - 10.0 % [facility] Neutrophils (Bld) [#/Vol] 14.7 10*3/uL High 1.8 - 7.0 10*3/uL [facility] Neutrophils/100 WBC (Bld) 87.4 % High 40.0 - 80.0 % [facility] Nucleated RBC/100 WBC (Bld) [Ratio] 0.0 % [facility] Platelet mean volume (Bld) [Entitic vol] 7.7 fL 7.4 - 12.4 fL [facility] Platelets (Bld) [#/Vol] 152 10*3/uL 140 - 440 10*3/uL [facility] RBC (Bld) [#/Vol] 3.63 10*6/uL Low 4.40 - 5.9 0 10*6/uL [facility] WBC (Bld) [#/Vol] 16.8 10*3/uL High 3.6 - 10.7 10*3/uL [facility] Comprehensive metabolic 1998 panelon 02-12-2023 Albumin [Mass/Vol] 3.3 g/dL Low 3.5 - 5.0 g/dL [facility] ALP [Catalytic activity/Vol] 69 U/L 38 - 126 U/L [facility] ALT [Catalytic activity/Vol] 22 U/L 0 - 49 U/L [facility] Anion gap [Moles/Vol] 5 mmol/L 3 - 13 mmol/L [facility] AST [Catalytic activity/Vol] 47 U/L High 15 - 46 U/L [facility] Bilirubin [Mass/Vol] 0.7 mg/dL 0.2 - 1 .3 mg/dL [facility] Calcium [Mass/Vol] 7.9 mg/dL Low 8.4 - 10. 4 mg/dL [facility] Chloride [Moles/Vol] 103 mmol/L 98 - 10 7 mmol/L [facility] CO2 [Moles/Vol] 25 mmol/L 22 - 30 mmol/L [facility] Creatinine [Mass/Vol] 1.07 mg/dL 0.66 - 1.25 mg/dL [facility] GFR/1.73 sq M.predicted MDRD (S/P/Bld) [Vol rate/Area] 74.2 mL/min/{1.73_m2} - PINF [facility] Comment on above: Calculation based on the Chronic Kidney Disease Epidemiology Collaboration (CKD-EPI) equation refit without adjustment for race Glucose [Mass/Vol] 114 mg/dL High 70 - 100 mg/dL [facility] Interpretation and review of laboratory results Abnormal [facility] Potassium [Moles/Vol] 3.6 mmol/L 3.5 - 5.1 mmol/L [facility] Protein [Mass/Vol] 6.2 g/dL Low 6.3 - 8.2 g/dL [facility] Sodium [Moles/Vol] 134 mmol/L Low 135 - 145 mmol/L [facility] Urea nitrogen [Mass/Vol] 23 mg/dL High 9 - 20 mg/dL [facility] No Panel Informationon 02-12 There is no interpretation needed for this exam. IMAGING No Panel InformationOrdered By: Shawanda Salguero on 02-12-2023 Enterococcus faecalis Detected Abnormal Not Detected [facility] Interpretation and review of laboratory results Abnormal [facility] Radha/B (VRE) Not detected Not Detected [facility] Methodology: Multiplex PCR The [employer] BCID panel can detect the following organisms: E. faecalis, E. faecium, Staphylococcus spp., S. aureus, S. epidermidis, S. lugdunensis, Streptococcus spp., S. pyogenes (Group A), S. agalactiae (Group B), S. pneumoniae, A. baumannii complex, B. fragilis, H. influenzae, N. meningitidis, P. aeruginosa, S. maltophilia, Enterobacterales, E. cloacae complex, E. coli, K. aerogenes, K. oxytoca, K. pneumoniae, Proteus spp., Salmonella spp., S. marcescens, C. albicans, C. auris, C. glabrata, C. krusei, C. parapsilosis, C. tropicalis, and C. neoformans/gattii. The following antimicrobial resistance genes are reported if appropriate organisms are detected: mecA/C and Radha/B. The following antimicrobial resistance genes are reported if detected and the appropriate organisms are detected: CTX-M, IMP, KPC, NDM, OXA-48-like, VIM, and mcr-1. [facility] CBC W Auto Differential pane l (Bld)Ordered By: Loree Johnson on 02-11-2023 Basophils (Bld) [#/Vol] 0.0 10*3/uL 0.0 - 0.2 10*3/uL [facility] Basophils/100 WBC (Bld) 0.1 % 0.0 - 2.0 % [facility] Eosinophils (Bld) [#/Vol] 0.0 10*3/uL 0.0 - 0.5 10*3/uL [facility] Eosinophils/100 WBC (Bld) 0.0 % Low 1.0 - 6.0 % [facility] Erythrocyte distribution width (RBC) [Ratio] 12.3 % 11.5 - 14.5 % [facility] Hematocrit (Bld) [Volume fraction] 35.7 % Low 40.0 - 52.0 % [facility] Hemoglobin (Bld) [Mass/Vol] 12.5 g/dL Low 13.0 - 18.0 g/dL [facility] Immature granulocytes (Bld) [#/Vol] 0.2 10*3/uL High NINF - 0.0 10*3/uL [facility] Health Immature granulocytes/100 WBC (Bld) 1.1 % High NINF - 0.0 % [facility] [employer] Interpretation and review of laboratory results Abnormal [facility] [employer] Lymphocytes (Bld) [#/Vol] 0.7 10*3/uL Low 1.0 - 4.3 10*3/uL [facility] Health Lymphocytes/100 WBC (Bld) 3.3 % Low 20.0 - 40.0 % [facility] [employer] MCH (RBC) [Entitic mass] 32.4 pg 26. 0 - 34.0 pg [facility] [employer] MCHC (RBC) [Mass/Vol] 35.0 % 32.0 - 36.0 % [facility] [employer] MCV (RBC) [Entitic vol] 92.5 fL 80.0 - 98.0 fL [facility] [employer] Monocytes (Bld) [#/Vol] 1.5 10*3/uL High 0.0 - 0.8 10*3/uL [facility] [employer] Monocytes/100 WBC (Bld) 7.1 % 2.0 - 10.0 % [facility] [employer] Neutrophils (Bld) [#/Vol] 18.3 10*3/uL High 1.8 - 7.0 10*3/uL [facility] Health Neutrophils/100 WBC (Bld) 88.4 % High 40.0 - 80.0 % [facility] Platelet mean volume (Bld) [Entitic vol] 9.8 fL 7.4 - 12.4 fL [facility] [employer] Platelets (Bld) [#/Vol] 173 10*3/uL 140 - 440 10*3/uL [facility] [employer] RBC (Bld) [#/Vol] 3.86 10*6/uL Low 4.40 - 5.9 0 10*6/uL [facility] Health WBC (Bld) [#/Vol] 20.7 10*3/uL High 3.6 - 10.7 10*3/uL [facility] CT Abdomen WO contraston 1. Obstructing left proximal ureteral 6 mm calculus causing mild to moderate left renal hyperdense nephrosis and distention of the left ureter. The left kidney is edematous with perinephric stranding and edema concerning for superimposed infectious inflammatory process. Circumferential wall thickening of the bladder also concerning for cystitis. Additional nonobstructive left renal calculi are present. 2. Right renal cyst and nonobstructive right renal calculus. MRI abdomen 07/18/2022 demonstrated enhancing suspicious right renal 2.0 cm lesion, better characterized by exam. 3. Colonic diverticulosis. Moderate fecal retention. Atherosclerotic disease. Appendix not clearly identified. Multiple hepatic cysts. Prostate gland enlargement. Report Dictated on Electronically Signed By: Mely Rosas Electronically Signed Date/Time: 02/11/2023 12:19 PM [facility] Patient Name: NERY RODRIGUEZ : 1950 Exam Date/Time: 02/11/2023 11:58 Procedure: CT ABDOMEN PELVIS WO IV CONTRAST Ordering Provider: FOURNIER DAVID Reason For Exam: h/o kidney stone, sepsis with left flank pain CT ABDOMEN AND PELVIS Indication: 72-year-old; sepsis; left flank pain; enhancing right renal lesion MRI abdomen 07/18/2022 and 11/15/2021 Scan Parameters: Multiple axial CT images were obtained of the abdomen and pelvis. Coronal and sagittal reconstructions were reviewed as well. ALARA protocol. Dose reduction was employed with automated exposure control. Contrast: No IV and no oral contrast Comparison: 08/28/2020; MRI abdomen 07/18/2022 FINDINGS: Lung bases are clear. Osseous structures appear intact. The heart is not enlarged. Atherosclerotic changes of the aorta are noted. Multiple hepatic cysts are present, similar to prior exam. The gallbladder is present, within normal limits. The pancreas and spleen and adrenal glands are within normal limits. Left perinephric stranding and edema there is a proximal 6 mm ureteral calculus causing distention of the ureter, renal pelvis, and renal collecting system with mild to moderate hydronephrosis. The left kidney is edematous. Additional renal calculi are present measuring up to 8 mm. Mild right perinephric stranding. Nonobstructive right renal calculus. Right renal 5.4 cm simple cyst is present. MRI abdomen 07/18/2022 demonstrated a 2.0 cm right renal enhancing mass, better characterized on that exam. There is edema within the wall of the bladder. Pelvic phleboliths are present. The prostate gland is enlarged. The appendix is not clearly identified in the right lower quadrant. Fecal retention is present. Colonic diverticulosis noted. Multiple loops of decompressed small bowel. Small hiatal hernia. [facility] RADIOLOGY [facility] Mely Rosas MD - 02/11/2023 Patient Name: NERY RODRIGUEZ : 1950 Exam Date/Time: 02/11/2023 11:58 Procedure: CT ABDOMEN PELVIS WO IV CONTRAST Ordering Provider: FOURNIER DAVID Reason For Exam: h/o kidney stone, sepsis with left flank pain CT ABDOMEN AND PELVIS Indication: 72-year-old; sepsis; left flank pain; enhancing right renal lesion MRI abdomen 07/18/2022 and 11/15/2021 Scan Parameters: Multiple axial CT images were obtained of the abdomen and pelvis. Coronal and sagittal reconstructions were reviewed as well. ALARA protocol. Dose reduction was employed with automated exposure control. Contrast: No IV and no oral contrast Comparison: 08/28/2020; MRI abdomen 07/18/2022 FINDINGS: Lung bases are clear. Osseous structures appear intact. The heart is not enlarged. Atherosclerotic changes of the aorta are noted. Multiple hepatic cysts are present, similar to prior exam. The gallbladder is present, within normal limits. The pancreas and spleen and adrenal glands are within normal limits. Left perinephric stranding and edema there is a proximal 6 mm ureteral calculus causing distention of the ureter, renal pelvis, and renal collecting system with mild to moderate hydronephrosis. The left kidney is edematous. Additional renal calculi are present measuring up to 8 mm. Mild right perinephric stranding. Nonobstructive right renal calculus. Right renal 5.4 cm simple cyst is present. MRI abdomen 07/18/2022 demonstrated a 2.0 cm right renal enhancing mass, better characterized on that exam. There is edema within the wall of the bladder. Pelvic phleboliths are present. The prostate gland is enlarged. The appendix is not clearly identified in the right lower quadrant. Fecal retention is present. Colonic diverticulosis noted. Multiple loops of decompressed small bowel. Small hiatal hernia. IMPRESSION: 1. Obstructing left proximal ureteral 6 mm calculus causing mild to moderate left renal hyperdense nephrosis and distention of the left ureter. The left kidney is edematous with perinephric stranding and edema concerning for superimposed infectious inflammatory process. Circumferential wall thickening of the bladder also concerning for cystitis. Additional nonobstructive left renal calculi are present. 2. Right renal cyst and nonobstructive right renal calculus. MRI abdomen 07/18/2022 demonstrated enhancing suspicious right renal 2.0 cm lesion, better characterized by exam. 3. Colonic diverticulosis. Moderate fecal retention. Atherosclerotic disease. Appendix not clearly identified. Multiple hepatic cysts. Prostate gland enlargement. Report Dictated on Electronically Signed By: Mely Rosas Electronically Signed Date/Time: 02/11/2023 12:19 PM EDT [facility] Radiology Study observation (narrative) [facility] CT Abdomen WO contrastOrdere d By: Mely Rosas on 02-11-2023 [facility] Work Phone: Comprehensive metabolic 1998 panelon 02-11-2023 Albumin [Mass/Vol] 3.5 g/dL 3.5 - 5.0 g/dL [facility] ALP [Catalytic activity/Vol] 68 U/L 38 - 126 U/L [facility] ALT [Catalytic activity/Vol] 19 U/L 0 - 49 U/L [facility] Anion gap [Moles/Vol] 6 mmol/L 3 - 13 mmol/L [facility] AST [Catalytic activity/Vol] 32 U/L 15 - 46 U/L [facility] Bilirubin [Mass/Vol] 1.1 mg/dL 0.2 - 1 .3 mg/dL [facility] Calcium [Mass/Vol] 8.1 mg/dL Low 8.4 - 10. 4 mg/dL [facility] Chloride [Moles/Vol] 99 mmol/L 98 - 10 7 mmol/L [facility] CO2 [Moles/Vol] 25 mmol/L 22 - 30 mmol/L [facility] Creatinine [Mass/Vol] 1.21 mg/dL 0.66 - 1.25 mg/dL [facility] GFR/1.73 sq M.predicted MDRD (S/P/Bld) [Vol rate/Area] 64.0 mL/min/{1.73_m2} - PINF [facility] Comment on above: Calculation based on the Chronic Kidney Disease Epidemiology Collaboration (CKD-EPI) equation refit without adjustment for race Glucose [Mass/Vol] 168 mg/dL High 70 - 100 mg/dL [facility] Interpretation and review of laboratory results Abnormal [facility] Potassium [Moles/Vol] 3.9 mmol/L 3.5 - 5.1 mmol/L [facility] Protein [Mass/Vol] 6.6 g/dL 6.3 - 8.2 g/dL [facility] Sodium [Moles/Vol] 129 mmol/L Low 135 - 145 mmol/L [facility] Urea nitrogen [Mass/Vol] 23 mg/dL High 9 - 20 mg/dL [facility] Laboratory - Chemistry and C hemistry - challengeon 02-11-2023 Troponin I.cardiac [Mass/Vol] 0.038 ng/mL High 0.000 - 0.034 ng/mL [facility] Lactate [Moles/Vol] 1.8 mmol/L 0.7 - 2. 0 mmol/L [facility] Troponin I.cardiac [Mass/Vol] 0.038 ng/mL High 0.000 - 0.034 ng/mL [facility] Lactate [Moles/Vol] 2.0 mmol/L 0.7 - 2. 0 mmol/L [facility] Laboratory - Microbiology an d Antimicrobial susceptibilityon 02-11-2023 FLUAV RNA LINDA+probe Ql (Resp) Not detected Not Detected [facility] FLUBV RNA LINDA+probe Ql (Resp) Not detected Not Detected [facility] RSV RNA LINDA+probe Ql (Resp) Not detected Not Detected [facility] SARS-CoV-2 (COVID-19) RNA LINDA+probe Ql (Resp) Not detected Not Detected [facility] SARS-CoV-2 (COVID-19) RNA LINDA+probe Ql (Unsp spec) Methodology: real-time, RT-PCR The SARS-CoV-2, Flu A/B, and RSV Combo assay is intended for in vitro diagnostic use under the FDA Emergency Use Authorization (EUA). This test has not been FDA cleared or approved. In compliance with this authorization, please visit www.fda.gov/media/430 275/download or www.fda.gov/media/970 478/download to access the applicable information sheets. 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 Compared to ECG 06/23/2022 10:02:19 No significant changes Electronically Signed On 02-11-2023 16:14:14 EDT by Haresh Fournier CV Haresh Rivera MD - 02/11/2023 IMPRESSION: 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 Compared to ECG 06/23/2022 10:02:19 No significant changes Electronically Signed On 02-11-2023 16:14:14 EDT by Haresh Fournier [facility] Interpretation and review of laboratory results Normal [facility] Interpretation and review of laboratory results Normal [facility] SARS-CoV-2, Flu A/B, and RSV Comboon 02-11-2023 Interpretation and review of laboratory results Normal [facility] Troponin I.cardiac [Mass/Vol ]on 02-11-2023 Interpretation and review of laboratory results Abnormal [facility] Patients with high levels of Biotin oral intake (ie >5 mg/day) may have falsely decreased Troponin levels. [facility] Interpretation and review of laboratory results Abnormal [facility] Patients with high levels of Biotin oral intake (ie >5 mg/day) may have falsely decreased Troponin levels. [facility] Urinalysis complete panel (U )on 02-11-2023 Bacteria LM.HPF (Urine sed) [#/Area] Moderate Abnormal Negative /HPF [facility] Bilirubin Ql (U) Negative Negative mg/dL [facility] Clarity (U) Turbid Abnormal Clear [facility] Color (U) Yellow Lt. Yellow [facility] Epithelial cells.squamous LM.HPF (Urine sed) [#/Area] 0-2 [facility] h Glucose Ql (U) Normal Normal (<70) mg/dL [facility] Hemoglobin Ql (U) 0.2 mg/dL Abnormal Negative [facility]alth Hyaline casts Auto (Urine sed) [#/Area] 3-5 Abnormal Negative /LPF [facility] Interpretation and review of laboratory results Abnormal [facility] Ketones (U) [Mass/Vol] Negative Negat megan mg/dL [facility] Leukocyte esterase Test strip Ql (U) 75 Abnormal Negative Joe/uL [facility] Mucus LM.HPF (Urine sed) [#/Area] Moderate Abnormal Negative /LPF [facility] Nitrite Ql (U) Negative Negative [facility] th pH (U) 5.5 [pH] 5.0 - 8.0 pH [facility] Protein (U) [Mass/Vol] 30 mg/dL Abnormal Negative [facility] RBC LM.HPF (Urine sed) [#/Area] 6-10 Abnormal [facility] Specific gravity (U) [Rel density] 1.019 1.005 - 1.030 [facility] Urobilinogen (U) [Mass/Vol] Normal Normal (0-1) mg/dL [facility] Volume, Urine 12 mL [facility] h WBC LM.HPF (Urine sed) [#/Area] 11-25 Abnormal [facility] Vital signson 02-11-2023 Heart rate 67 /min bpm [facility] XR Chest Single viewon 02-11 No acute cardiopulmonary abnormality identified. Report Dictated on Electronically Signed By: Bryson Tao Electronically Signed Date/Time: 02/11/2023 12:00 PM EDT [employer] Patient Name: NERY RODRIGUEZ : 1950 Exam Date/Time: 02/11/2023 11:57 Procedure: XR CHEST 1 VIEW Ordering Provider: FOURNIER DAVID Reason For Exam: Sepsis, weakness EXAMINATION: XR chest AP. EXAM DATE & TIME: 02/11/2023 11:57 AM EDT INDICATION: Sepsis, weakness ADDITIONAL INFORMATION: 72-year-old male with sepsis and weakness presents for evaluation COMPARISON: Chest radiograph dated 07/20/2021 TECHNIQUE: Frontal view of the chest was obtained. FINDINGS: Lines/support devices: None. Cardiomediastinal silhouette: Within normal limits. Lungs/pleura: There is mild pulmonary vascular congestion. No focal consolidation, pleural effusion or pneumothorax. Osseous structures: Degenerative changes of the spine and shoulders are seen. No acute osseous abnormality is demonstrated. Other findings: None. [facility] Bryson Tao MD - 02/11/2023 Patient Name: NERY RODRIGUEZ : 1950 Exam Date/Time: 02/11/2023 11:57 Procedure: XR CHEST 1 VIEW Ordering Provider: FOURNIER DAVID Reason For Exam: Sepsis, weakness EXAMINATION: XR chest AP. EXAM DATE & TIME: 02/11/2023 11:57 AM EDT INDICATION: Sepsis, weakness ADDITIONAL INFORMATION: 72-year-old male with sepsis and weakness presents for evaluation COMPARISON: Chest radiograph dated 07/20/2021 TECHNIQUE: Frontal view of the chest was obtained. FINDINGS: Lines/support devices: None. Cardiomediastinal silhouette: Within normal limits. Lungs/pleura: There is mild pulmonary vascular congestion. No focal consolidation, pleural effusion or pneumothorax. Osseous structures: Degenerative changes of the spine and shoulders are seen. No acute osseous abnormality is demonstrated. Other findings: None. IMPRESSION: No acute cardiopulmonary abnormality identified. Report Dictated on Electronically Signed By: Bryson Tao Electronically Signed Date/Time: 02/11/2023 12:00 PM EDT [facility] Radiology Study observation (narrative) [facility] XR Chest Single viewOrdered By: Bryson Tao on 02-11-2023 [facility] [employer] Work Phone: Kidneyon 01-16-2023 At least two right renal cysts are seen, the largest measuring up to 5.4 cm in size. The enhancing lesion seen within the right kidney on the prior MRI is not readily appreciated on this study. There is no hydronephrosis. Nonobstructing left renal calculi are present.. Report Dictated on Electronically Signed By: Brijesh Francois Electronically Signed Date/Time: 01/16/2023 12:02 PM EDT [facility] [employer] SYSTEM Patient Name: NERY RODRIGUEZ : 1950 Exam Date/Time: 01/16/2023 09:28 Procedure: US RENAL COMPLETE Ordering Provider: QUINTERO JOSHUA Reason For Exam: Right renal mass RENAL ULTRASOUND: INDICATION: Right renal mass COMPARISON: MR abdomen dated 07/18/2022 Sonographic images of the bilateral kidneys and bladder were obtained. The right kidney measures 11.7 x 6.1 x 5.7 cm. Parenchymal echotexture is normal. Two cysts are seen, the largest is located superior laterally measuring 5.4 x 4.9 x 5.1 cm. The enhancing lesion seen on the prior MRI is not readily appreciated on this ultrasound. There is no evidence of hydronephrosis or renal calculus. The left kidney measures 13.5 x 6.4 x 5.2 cm. Parenchymal echotexture is normal. No focal lesions are seen. Two nonobstructing left renal calculi are noted. No mass or fluid collection is seen adjacent to the kidneys. The bladder is grossly unremarkable. [facility] Brijesh Francois DO - 01/16/2023 Patient Name: NERY [facility]IGUEZ : 1950 [id number] Exam Date/Time: 01/16/2023 09:28 Procedure: US RENAL COMPLETE Ordering Provider: QUINTERO JOSHUA Reason For Exam: Right renal mass RENAL ULTRASOUND: INDICATION: Right renal mass COMPARISON: MR abdomen dated 07/18/2022 Sonographic images of the bilateral kidneys and bladder were obtained. The right kidney measures 11.7 x 6.1 x 5.7 cm. Parenchymal echotexture is normal. Two cysts are seen, the largest is located superior laterally measuring 5.4 x 4.9 x 5.1 cm. The enhancing lesion seen on the prior MRI is not readily appreciated on this ultrasound. There is no evidence of hydronephrosis or renal calculus. The left kidney measures 13.5 x 6.4 x 5.2 cm. Parenchymal echotexture is normal. No focal lesions are seen. Two nonobstructing left renal calculi are noted. No mass or fluid collection is seen adjacent to the kidneys. The bladder is grossly unremarkable. IMPRESSION: At least two right renal cysts are seen, the largest measuring up to 5.4 cm in size. The enhancing lesion seen within the right kidney on the prior MRI is not readily appreciated on this study. There is no hydronephrosis. Nonobstructing left renal calculi are present.. Report Dictated on Electronically Signed By: Brijesh Francois Electronically Signed Date/Time: 01/16/2023 12:02 PM EDT [facility] Radiology Study observation (narrative) Aric Lou alth US KidneyOrdered By: Brijesh Francois on 01-16-2023 [employer] Work Phone: MRI ABDOMEN W WO CONTRASTon 07-18-2022 Patient Name: NERY RODRIGUEZ Jr [facility] ACCESSION EXAM DATE/TIME PROCEDURE ORDERING PROVIDER [phone] 07/18/2022 12:53 EDT MRI Abdomen w/ + w/o MD QUINTERO JOSHUA B Contrast CPT code 42426 Reason For Exam (MRI Abdomen w/ + w/o Contrast) Other specified disorders of kidney and ureter Report MRI ABDOMEN WITHOUT AND WITH CONTRAST (WITH ATTENTION TO THE KIDNEYS): CLINICAL INDICATION: Follow-up for right renal lesion. TECHNIQUE: Transaxial T1 and T2 gradient echo, fast T2 and fast T2 fat suppression as well as coronal T1 gradient echo and fast T2 sequences were performed along with diffusion-weighted sequences through the abdomen. Dynamic contrast-enhanced T1 sequence during injection of 11 mL gadolinium along with delayed postcontrast transaxial and coronal T1 sequences were performed as well. Comparison: 11/15/2021 FINDINGS: Limitations: Motion artifact on several sequences. Liver: Normal size and contour. Multiple hepatic cysts are again demonstrated within the imaged portions of the liver. These appear fairly similar to prior study. No suspicious liver lesions identified Biliary tree: Gallbladder appears within normal limits. No biliary dilatation. Spleen: Normal Adrenals:No discrete mass or nodule Pancreas: Homogeneous enhancement without adjacent stranding. No pathologic ductal dilatation. Kidneys: Demonstrate symmetric enhancement without obstructive uropathy. Simple appearing cyst midpole right kidney measuring up to 5.4 cm. Cystic lesion with heterogeneous slightly T2 hyperintense signal and intermediate to slightly T1 hypointense signal with heterogeneous enhancement measures about 2.0 x 1.6 cm, axial sequence 1200 image 193. This is remeasured by myself on prior study at 1.9 x 1.6 cm. Additional findings: Visualized small bowel is not abnormally dilated. Mild amount of retained colonic stool. Abdominal aorta is normal in caliber. Major venous structures enhance normally. No ascites or focal fluid collection. No suspicious bulky adenopathy. Mild degenerative spondylosis in the visualized spine with slight leftward scoliotic curvature in the lumbar spine. [facility] Resonance Imaging Report IMPRESSION: 1. 2.0 cm enhancing lesion, right kidney, overall without significant interval change from 11/15/2021. 2. Multiple liver cysts a few of which demonstrate fine internal septation. No suspicious liver lesions within the imaged portions. Report Dictated on --- Final --- Dictating Physician: MD CAAL VLADIMIR Signed Date and Time: 07/18/2022 2:01 pm Signed by: MD CAAL VLADIMIR Transcribed Date and Time: 07/18/2022 2:02 [facility] RAD Result, Unknown Provider - 07/18/2022 Patient Name[id number] Imaging ACCESSION EXAM DATE/TIME PROCEDURE ORDERING PROVIDER [id number] 07/18/2022 12:53 EDT MRI Abdomen w/ + w/o MD QUINTERO JOSHUA B Contrast CPT code 73357 Reason For Exam (MRI Abdomen w/ + w/o Contrast) Other specified disorders of kidney and ureter Report MRI ABDOMEN WITHOUT AND WITH CONTRAST (WITH ATTENTION TO THE KIDNEYS): CLINICAL INDICATION: Follow-up for right renal lesion. TECHNIQUE: Transaxial T1 and T2 gradient echo, fast T2 and fast T2 fat suppression as well as coronal T1 gradient echo and fast T2 sequences were performed along with diffusion-weighted sequences through the abdomen. Dynamic contrast-enhanced T1 sequence during injection of 11 mL gadolinium along with delayed postcontrast transaxial and coronal T1 sequences were performed as well. Comparison: 11/15/2021 FINDINGS: Limitations: Motion artifact on several sequences. Liver: Normal size and contour. Multiple hepatic cysts are again demonstrated within the imaged portions of the liver. These appear fairly similar to prior study. No suspicious liver lesions identified Biliary tree: Gallbladder appears within normal limits. No biliary dilatation. Spleen: Normal Adrenals:No discrete mass or nodule Pancreas: Homogeneous enhancement without adjacent stranding. No pathologic ductal dilatation. Kidneys: Demonstrate symmetric enhancement without obstructive uropathy. Simple appearing cyst midpole right kidney measuring up to 5.4 cm. Cystic lesion with heterogeneous slightly T2 hyperintense signal and intermediate to slightly T1 hypointense signal with heterogeneous enhancement measures about 2.0 x 1.6 cm, axial sequence 1200 image 193. This is remeasured by myself on prior study at 1.9 x 1.6 cm. Additional findings: Visualized small bowel is not abnormally dilated. Mild amount of retained colonic stool. Abdominal aorta is normal in caliber. Major venous structures enhance normally. No ascites or focal fluid collection. No suspicious bulky adenopathy. Mild degenerative spondylosis in the visualized spine with slight leftward scoliotic curvature in the lumbar spine. Magnetic Resonance Imaging Report IMPRESSION: 1. 2.0 cm enhancing lesion, right kidney, overall without significant interval change from 11/15/2021. 2. Multiple liver cysts a few of which demonstrate fine internal septation. No suspicious liver lesions within the imaged portions. Report Dictated on --- Final --- Dictating Physician: MD CAAL VLADIMIR Signed Date and Time: 07/18/2022 2:01 pm Signed by: MD CAAL VLADIMIR Transcribed Date and Time: 07/18/2022 2:02 [facility] Work Phone: Radiology Study observation (narrative) [facility] Work Phone: MRI ABDOMEN W WO CONTRASTOrd ered By: Unknown Result on 07-18-2022 [facility] MRI Abdomen w/ + w/o Contras ton 07-18-2022 MRI Abdomen w/ + w/o Contrast Patient Name: NERY RODRIGUEZ Jr Magnetic Resonance Imaging ACCESSION EXAM DATE/TIME PROCEDURE ORDERING PROVIDER [id number] 07/18/2022 12:53 EDT MRI Abdomen w/ + w/o MD LEON, CONNER Crews Contrast CPT code 98128 Reason For Exam (MRI Abdomen w/ + w/o Contrast) Other specified disorders of kidney and ureter Report MRI ABDOMEN WITHOUT AND WITH CONTRAST (WITH ATTENTION TO THE KIDNEYS): CLINICAL INDICATION: Follow-up for right renal lesion. TECHNIQUE: Transaxial T1 and T2 gradient echo, fast T2 and fast T2 fat suppression as well as coronal T1 gradient echo and fast T2 sequences were performed along with diffusion-weighted sequences through the abdomen. Dynamic contrast-enhanced T1 sequence during injection of 11 mL gadolinium along with delayed postcontrast transaxial and coronal T1 sequences were performed as well. Comparison: 11/15/2021 FINDINGS: Limitations: Motion artifact on several sequences. Liver: Normal size and contour. Multiple hepatic cysts are again demonstrated within the imaged portions of the liver. These appear fairly similar to prior study. No suspicious liver lesions identified Biliary tree: Gallbladder appears within normal limits. No biliary dilatation. Spleen: Normal Adrenals:No discrete mass or nodule Pancreas: Homogeneous enhancement without adjacent stranding. No pathologic ductal dilatation. Kidneys: Demonstrate symmetric enhancement without obstructive uropathy. Simple appearing cyst midpole right kidney measuring up to 5.4 cm. Cystic lesion with heterogeneous slightly T2 hyperintense signal and intermediate to slightly T1 hypointense signal with heterogeneous enhancement measures about 2.0 x 1.6 cm, axial sequence 1200 image 193. This is remeasured by myself on prior study at 1.9 x 1.6 cm. Additional findings: Visualized small bowel is not abnormally dilated. Mild amount of retained colonic stool. Abdominal aorta is normal in caliber. Major venous structures enhance normally. No ascites or focal fluid collection. No suspicious bulky adenopathy. Mild degenerative spondylosis in the visualized spine with slight leftward scoliotic curvature in the lumbar spine. Magnetic Resonance Imaging Report IMPRESSION: 1. 2.0 cm enhancing lesion, right kidney, overall without significant interval change from 11/15/2021. 2. Multiple liver cysts a few of which demonstrate fine internal septation. No suspicious liver lesions within the imaged portions. Report Dictated on Final Dictating Physician: MD CAAL VLADIMIR Signed Date and Time: 07/18/2022 2:01 pm Signed by: MD CAAL VLADIMIR Transcribed Date and Time: 07/18/2022 2:02 [address] [facility] [address] Chest w/o Contraston 08-0 CT Chest w/o Contrast Patient Name: NERY RODRIGUEZ Computed Tomography ACCESSION EXAM DATE/TIME PROCEDURE ORDERING PROVIDER [id number] 05/16/2022 09:[address] Thorax w/o Contrast SIMÓN MCGILL MARIA CPT code 38484 Reason For Exam (CT Thorax w/o Contrast) 5 mm left lung nodule Report CLINICAL INFORMATION: Lung nodule. Follow-up CT. 1 mm axial cuts are obtained through the chest without IV contrast. The examination is compared to a previous study dated 10/18/2021. FINDINGS: Mild emphysematous changes are noted diffusely. There are no focal infiltrates. A 0.5 cm possible nodule is redemonstrated in the medial left upper lobe (image #142). This is unchanged from prior imaging. No new nodules are appreciated. The heart size is normal. There is no significant mediastinal lymphadenopathy. Hepatic and renal cysts are redemonstrated. Nonobstructing stones are seen in the left renal collecting system. Upper cuts of the abdomen included on the examination are otherwise grossly normal on this unenhanced scan. IMPRESSION: 1. COPD. 2. Stable possible nodule in the left upper lobe. There are no new nodules. 3. Hepatic and renal cysts. 4. Nonobstructing left renal calculi. Report Dictated on Final Dictating Physician: MD QUIJANO JEFFREY Signed Date and Time: 05/18/2022 12:38 pm Signed by: MD QUIJANO JEFFREY Transcribed Date and Time: 05/18/2022 12:39 Normal [facility] CBC with Auto Differentialon 03-18-2022 Absolute Baso # 0.0 10*3/uL 0.0 - 0.2 10*3/uL [facility] Absolute Neut # 2.6 10*3/uL 1.8 - 7.0 10*3/uL [facility] Basophils/100 WBC (Bld) 0.9 % 0.0 - 2.0 % [facility] Eosinophils (Bld) [#/Vol] 0.1 10*3/uL 0.0 - 0.5 10*3/uL [facility] Eosinophils/100 WBC (Bld) 3.3 % 1.0 - 6.0 % [facility] Granulocytes/100 WBC (Bld) 61.7 % 40.0 - 80.0 % [facility] Hematocrit (Bld) [Volume fraction] 39.7 % Low 40.0 - 52.0 % [facility] Hemoglobin (Bld) [Mass/Vol] 13.9 g/dL 13.0 - 18.0 g/dL [facility] Interpretation and review of laboratory results Abnormal [facility] Lymphocytes (Bld) [#/Vol] 1.1 10*3/uL 1.0 - 4.3 10*3/uL [facility] Lymphocytes/100 WBC (Bld) 25.9 % 20.0 - 40.0 % [facility] MCH (RBC) [Entitic mass] 32.4 pg 26. 0 - 34.0 pg [facility] MCHC (RBC) [Mass/Vol] 35.0 % 32.0 - 36.0 % [facility] MCV (RBC) [Entitic vol] 92.5 fL 80.0 - 98.0 fL [facility] Monocytes (Bld) [#/Vol] 0.3 10*3/uL 0.0 - 0.8 10*3/uL [facility] Monocytes/100 WBC (Bld) 7.7 % 2.0 - 10.0 % [facility] Platelet distribution width (Bld) [Ratio] 12.0 % 11.5 - 14.5 % [facility] Platelet mean volume (Bld) [Entitic vol] 8.8 fL 7.4 - 12.4 fL [facility] Comment on above: MPV is a calculated measurement using platelet volume ratio. Platelets (Bld) [#/Vol] 205 10*3/uL 140 - 440 10*3/uL [facility] RBC (Bld) [#/Vol] 4.29 10*6/uL Low 4.40 - 5.9 0 10*6/uL [facility] WBC (Bld) [#/Vol] 4.3 10*3/uL 3.6 - 10.7 10*3/uL [facility] Test Performed by [facility], [address] , [address] LAB [facility] Comp Metabolic Panelon 03-18 Calcium [Mass/Vol] 9.3 mg/dL Normal 8.4-10.4 [facility] Comment on above: Performed By: #### U RIC3, LIPD2, CMP3, HEMDF #### [facility] [address] [place] [address] ALP [Catalytic activity/Vol] 78 U/L Normal 38-126 [facility] Comment on above: Performed By: #### U RIC3, LIPD2, CMP3, HEMDF #### [facility] [address] [place] [address] ALT [Catalytic activity/Vol] 19 U/L Normal 0-49 [facility] Comment on above: Result Comment: The ALT test is performed by an updated assay method. Please note that the reference intervals have been changed and are now sex specific. Performed By: #### U RIC3, LIPD2, CMP3, HEMDF #### [facility] [address] [place] [address] Anion gap [Moles/Vol] 5 mmol/L Normal 3-13 [facility] Comment on above: Performed By: #### U RIC3, LIPD2, CMP3, HEMDF #### [facility] [address] [place] [address] AST [Catalytic activity/Vol] 31 U/L Normal 15-46 [facility] Comment on above: Performed By: #### U RIC3, LIPD2, CMP3, HEMDF #### [facility] [address] [place] [address] Bilirubin [Mass/Vol] 0.7 mg/dL Normal 0.2-1.3 [facility] Comment on above: Performed By: #### U RIC3, LIPD2, CMP3, HEMDF #### [facility] [address] [place] [address] CO2 [Moles/Vol] 30 mmol/L Normal 22-30 [facility] Comment on above: Performed By: #### U RIC3, LIPD2, CMP3, HEMDF #### [facility] [address] [place] [address] Creatinine [Mass/Vol] 0.89 mg/dL Normal 0.52-1.25 [facility] Comment on above: Performed By: #### U RIC3, LIPD2, CMP3, HEMDF #### [facility] [address] [place] [address] GFR/1.73 sq M.predicted among blacks MDRD (S/P/Bld) [Vol rate/Area] mL/min/{1.73_m2} Normal >60 [facility] Comment on above: Performed By: #### U RIC3, LIPD2, CMP3, HEMDF #### [facility] [address] [place] [address] GFR/1.73 sq M.predicted among non-blacks MDRD (S/P/Bld) [Vol rate/Area] 86.2 mL/min/{1.73_m2} Normal >60 [facility] Comment on above: Result Comment: KDIG O guidelines provide the following GFR categories: Stage GFR(ml/min/1.73 m2) Terms G1 >=90 Normal or high G2 60-89 Mildly decreased* G3a 45-59 Mildly to moderately decreased G3b 30-44 Moderately to severely decreased G4 15-29 Severely decreased G5 <15 Kidney failure *Relative to young adult level. In the absence of evidence of kidney damage, neither GFR category G1 nor G2 fulfill the criteria for CKD. The CKD-EPI equation is validated in individuals 18 years of age and older. Currently the best equation for estimating glomerular filtration rate (GFR) from serum creatinine in children is the Bedside Chavez equation. It is less accurate in patients with extremes of muscle mass, restriction of dietary protein, ingestion of creatine, extra-renal metabolism of creatinine, or treatment with medications that affect renal tubular creatinine secretion. Performed By: #### U RIC3, LIPD2, CMP3, HEMDF #### [facility] [address] [place] [address] Glucose [Mass/Vol] 104 mg/dL High 70-100 [facility] Comment on above: Performed By: #### U RIC3, LIPD2, CMP3, HEMDF #### [facility] [address] [place] [address] Protein [Mass/Vol] 7.1 g/dL Normal 6.3-8.2 [facility] Comment on above: Performed By: #### U RIC3, LIPD2, CMP3, HEMDF #### [facility] [address] [place] [address] Urea nitrogen [Mass/Vol] 17 mg/dL Normal 7-17 [facility] Comment on above: Performed By: #### U RIC3, LIPD2, CMP3, HEMDF #### [facility] [address] [place] [address] Potassium [Moles/Vol] 4.1 mmol/L Normal 3.5-5.1 [facility] Comment on above: Performed By: #### U RIC3, LIPD2, CMP3, HEMDF #### [facility] [address] [place] [address] Albumin [Mass/Vol] 3.9 g/dL Normal 3.5-5.0 [facility] Comment on above: Performed By: #### U RIC3, LIPD2, CMP3, HEMDF #### [facility] [address] [place] [address] Chloride [Moles/Vol] 107 mmol/L Normal 98-107 [facility] Comment on above: Performed By: #### U RIC3, LIPD2, CMP3, HEMDF #### [facility] [address] [place] [address] Sodium [Moles/Vol] 142 mmol/L Normal 135-145 [facility] Comment on above: Performed By: #### U RIC3, LIPD2, CMP3, HEMDF #### [facility] [address] [place] [address] Comprehensive Metabolic Pane [facility] 03-18-2022 Albumin [Mass/Vol] 3.9 g/dL 3.5 - 5.0 g/dL [facility] ALP (Bld) [Catalytic activity/Vol] 78 U/L 38 - 126 U/L [facility] ALT [Catalytic activity/Vol] 19 U/L 0 - 49 U/L [facility] Comment on above: The ALT test is perf ormed by an updated assay method. Please note that the reference intervals have been changed and are now sex specific. Anion gap [Moles/Vol] 5 mmol/L 3 - 13 mmol/L [facility] AST [Catalytic activity/Vol] 31 U/L 15 - 46 U/L [facility] Bilirubin [Mass/Vol] 0.7 mg/dL 0.2 - 1 .3 mg/dL [facility] Calcium [Mass/Vol] 9.3 mg/dL 8.4 - 10. 4 mg/dL [facility] Chloride [Moles/Vol] 107 mmol/L 98 - 10 7 mmol/L [facility] CO2 [Moles/Vol] 30 mmol/L 22 - 30 mmol/L [facility] Creatinine [Mass/Vol] 0.89 mg/dL 0.52 - 1.25 mg/dL [facility] EGFR IF NonAfrican [place] 86.2 mL/min >60 [facility] Comment on above: KDIGO guidelines pro vide the following GFR categories: Stage GFR(ml/min/1.73 m2) Terms G1 >=90 Normal or high G2 60-89 Mildly decreased* G3a 45-59 Mildly to moderately decreased G3b 30-44 Moderately to severely decreased G4 15-29 Severely decreased G5 <15 Kidney failure *Relative to young adult level. In the absence of evidence of kidney damage, neither GFR category G1 nor G2 fulfill the criteria for CKD. The CKD-EPI equation is validated in individuals 18 years of age and older. Currently the best equation for estimating glomerular filtration rate (GFR) from serum creatinine in children is the Bedside Chavez equation. It is less accurate in patients with extremes of muscle mass, restriction of dietary protein, ingestion of creatine, extra-renal metabolism of creatinine, or treatment with medications that affect renal tubular creatinine secretion. Free PSA/Total PSA [Mass fraction] 7.1 g/dL 6.3 - 8.2 g/dL [facility] GFR/1.73 sq M.predicted among blacks MDRD (S/P/Bld) [Vol rate/Area] mL/min/{1.73_m2} >60 mL/min [facility] Glucose [Mass/Vol] 104 mg/dL High 70 - 100 mg/dL [facility] Potassium [Moles/Vol] 4.1 mmol/L 3.5 - 5.1 mmol/L [facility] Sodium [Moles/Vol] 142 mmol/L 135 - 145 mmol/L [facility] Urea nitrogen (BldV) [Mass/Vol] 17 mg/dL 7 - 17 mg/dL [facility] Hemogram w/ Autodiffon 03-18 Abs Baso Cnt 0.0 10*3/uL Normal 0.0-0.2 [facility] Comment on above: Performed By: #### U RIC3, LIPD2, CMP3, HEMDF #### [facility] [employer] [address] [place] [address] Abs Neutrophile Cnt 2.6 10*3/uL Normal 1.8-7.0 [facility] Comment on above: Performed By: #### U RIC3, LIPD2, CMP3, HEMDF #### [facility] [address] [place] [address] Basophils/100 WBC (Bld) 0.9 % Normal 0.0-2.0 [facility] Comment on above: Performed By: #### U RIC3, LIPD2, CMP3, HEMDF #### [facility] [address] [place] [address] Eosinophils (Bld) [#/Vol] 0.1 10*3/uL Normal 0.0-0.5 [facility] Comment on above: Performed By: #### U RIC3, LIPD2, CMP3, HEMDF #### [facility] [address] [place] [address] Eosinophils/100 WBC (Bld) 3.3 % Normal 1.0-6.0 [facility] Comment on above: Performed By: #### U RIC3, LIPD2, CMP3, HEMDF #### [facility] [address] [place] [address] Erythrocyte distribution width (RBC) [Ratio] 12.0 % Normal 11.5-14.5 [facility] Comment on above: Performed By: #### U RIC3, LIPD2, CMP3, HEMDF #### [facility] [address] [place] [address] Granulocytes/100 WBC (Bld) 61.7 % Normal 40.0-80.0 [facility] Comment on above: Performed By: #### U RIC3, LIPD2, CMP3, HEMDF #### [facility] [address] [place] [address] Hematocrit (Bld) [Volume fraction] 39.7 % Low 40.0-52.0 [facility] Comment on above: Performed By: #### U RIC3, LIPD2, CMP3, HEMDF #### [facility] [address] [place] [address] Hemoglobin (Bld) [Mass/Vol] 13.9 g/dL Normal 13.0-18.0 [facility] Comment on above: Performed By: #### U RIC3, LIPD2, CMP3, HEMDF #### [facility] [address] [place] [address] Lymphocytes (Bld) [#/Vol] 1.1 10*3/uL Normal 1.0-4.3 [facility] Comment on above: Performed By: #### U RIC3, LIPD2, CMP3, HEMDF #### [facility] [address] [place] [address] Lymphocytes/100 WBC (Bld) 25.9 % Normal 20.0-40.0 [facility] Comment on above: Performed By: #### U RIC3, LIPD2, CMP3, HEMDF #### [facility] [address] [place] [address] MCH (RBC) [Entitic mass] 32.4 pg Normal 26.0-34.0 [facility] Comment on above: Performed By: #### U RIC3, LIPD2, CMP3, HEMDF #### [facility] [address] [place] [address] MCHC 35.0 % Normal 32.0-36.0 [facility] Comment on above: Performed By: #### U RIC3, LIPD2, CMP3, HEMDF #### [facility] [address] [place] [address] MCV (RBC) [Entitic vol] 92.5 fL Normal 80.0-98.0 [facility] Comment on above: Performed By: #### U RIC3, LIPD2, CMP3, HEMDF #### [facility] [address] [place] [address] Monocytes (Bld) [#/Vol] 0.3 10*3/uL Normal 0.0-0.8 [facility] Comment on above: Performed By: #### U RIC3, LIPD2, CMP3, HEMDF #### [facility] [address] [place] [address] Monocytes/100 WBC (Bld) 7.7 % Normal 2.0-10.0 [facility] Comment on above: Performed By: #### U RIC3, LIPD2, CMP3, HEMDF #### [facility] [address] [place] [address] Platelet mean volume (Bld) [Entitic vol] 8.8 fL Normal 7.4-12.4 [facility] Comment on above: Result Comment: MPV is a calculated measurement using platelet volume ratio. Performed By: #### U RIC3, LIPD2, CMP3, HEMDF #### [facility] [address] [place] [address] Platelets (Bld) [#/Vol] 205 10*3/uL Normal 140-440 [facility] Comment on above: Performed By: #### U RIC3, LIPD2, CMP3, HEMDF #### [facility] [address] [place] [address] RBC (Bld) [#/Vol] 4.29 10*6/uL Low 4.40-5.90 [facility] Comment on above: Performed By: #### U RIC3, LIPD2, CMP3, HEMDF #### [facility] [address] [place] [address] WBC (Bld) [#/Vol] 4.3 10*3/uL Normal 3.6-10.7 [facility] Comment on above: Performed By: #### U RIC3, LIPD2, CMP3, HEMDF #### [facility] [address] [place] [address] Lipid Panelon 03-18-2022 Chol/HDL 4 Normal [facility] Comment on above: Result Comment: Ref Range: < 3 Low Risk for CHD 3-6 Mod Risk for CHD > 6 High Risk for CHD Performed By: #### U RIC3, LIPD2, CMP3, HEMDF #### [facility] [address] [place] [address] Cholesterol in HDL [Mass/Vol] 55 mg/dL Normal 40-60 [facility] Comment on above: Performed By: #### U RIC3, LIPD2, CMP3, HEMDF #### [facility] [address] [place] [address] Low Density Lipoprotein 143 mg/dL Abnormal <100 [facility] Comment on above: Performed By: #### U RIC3, LIPD2, CMP3, HEMDF #### [facility] [address] [place] [address] Triglyceride [Mass/Vol] 93 mg/dL Normal <150 [facility] Comment on above: Performed By: #### U RIC3, LIPD2, CMP3, HEMDF #### [facility] [address] [place] [address] Cholesterol [Mass/Vol] 217 mg/dL Abnormal < 200 [facility] Comment on above: Performed By: #### U RIC3, LIPD2, CMP3, HEMDF #### [facility] [address] [place] [address] Cholesterol [Mass/Vol] 217 mg/dL Abnormal <200 [facility] Cholesterol in HDL [Mass/Vol] 55 mg/dL 40 - 60 mg/dL [facility] Cholesterol in LDL [Mass/Vol] 143 mg/dL Abnormal <100 [facility] Cholesterol.total/Choles terol in HDL [Mass ratio] 4 {ratio} [facility] Comment on above: Ref Range: < 3 Low Risk for CHD 3-6 Mod Risk for CHD > 6 High Risk for CHD Triglyceride [Mass/Vol] 93 mg/dL <150 [facility] No Panel Informationon 03-18 Interpretation and review of laboratory results Abnormal [facility] Test Performed by [facility], [address] , [address] LAB [facility] Uric Acidon 03-18-2022 Urate [Mass/Vol] 5.9 mg/dL Normal 2.5-6.2 [facility] Comment on above: Performed By: #### U RIC3, LIPD2, CMP3, HEMDF #### [facility] [address] [place] [address] Urate [Mass/Vol] 5.9 mg/dL 2.5 - 6.2 mg/dL [facility] Abdomen w/ Contraston MRI Abdomen w/ Contrast Patient Name: NERY MANUEL Magnetic Resonance Imaging ACCESSION EXAM DATE/TIME PROCEDURE ORDERING PROVIDER [id number] 11/15/2021 16:30 EST MRI Abdomen w/ Contrast LAWANDA GALICIA JENNIFER A. CPT code 35728 Reason For Exam (MRI Abdomen w/ Contrast) Survillance hepatic cysts Report MRI ABDOMEN WITHOUT AND WITH CONTRAST (WITH ATTENTION TO THE LIVER) EXAM DATE AND TIME: 11/15/2021 4:30 PM EST INDICATION: 71 years Male with liver cysts TECHNIQUE: Multiplanar multisequence MR images of the abdomen were performed with attention to the liver, including diffusion-weighted images and imaging following the intravenous administration of 12 mL Gadavist contrast. COMPARISON: CT from 08/29/2020 FINDINGS: Liver: The liver is normal in size and contour. There is no drop in signal on in-phase or opposed-phase images to suggest fat or iron deposition. No focal suspicious liver lesions. Multiple hepatic cysts are present measuring up to 7.7 x 6.7 cm in the central aspect of the liver, not significantly changed when compared to the prior CT. Some of these contain thin internal septations, Iva since a segment three lesion measuring 1.8 x 1.1 cm (series 801 image nine). A second septated cyst is present in the in the left hepatic lobe measuring 1.5 x 1.5 cm (image nine). Biliary tree: Normal gallbladder. No biliary dilatation. Spleen: Normal Adrenals:Normal Pancreas: Homogeneous enhancement without mass or peripancreatic fluid. No pancreatic duct dilation. Kidneys: Symmetric enhancement. No hydronephrosis. Two right renal cysts including a large cyst measuring 5.4 x 5.3 cm. There is an enhancing lesion in the interpolar left kidney measuring 1.7 x 1.4 cm (series 1100 image 154). The right renal vein is patent. Lymph nodes: No lymphadenopathy. Vasculature: The aorta and major abdominal arterial vessels are unremarkable. Superior mesenteric vein, splenic vein and the main, right and left portal veins are patent. No significant collaterals or esophageal varices. Visualized Osseous structures: Normal Other: Colonic diverticulosis is present. There is a redundant transverse colon. IMPRESSION: Magnetic Resonance Imaging Report 1. Multiple liver cysts including some containing thin internal septations. No suspicious liver lesion 2. Enhancing right renal lesion concerning for neoplasm. Recommend urologic consultation. 3. Colonic diverticulosis. CRITICAL TEST RESULT COMMUNICATION: The findings were discussed with Mely Grayson on 11/16/2021 at 2:43 PM by Jenn RykertJennifer. Report Dictated on Final Dictating Physician: MD MONZON NICHOLAS Signed Date and Time: 11/16/2021 2:44 pm Signed by: MD MONZON NICHOLAS Transcribed Date and Time: 11/16/2021 2:45 Normal [facility] Echo Complete w/wo Contrasto n 10-19-2021 Echo Complete w/wo Contrast Patient Name: NERY RODRIGUEZ Ultrasound ACCESSION EXAM DATE/TIME PROCEDURE ORDERING PROVIDER [id number] 10/19/2021 13:29 EST Echo Complete w/wo CHRIS SANDOVAL Reason For Exam (Echo Complete w/wo Contrast) abnormal EKG Report TRANSTHORACIC ECHOCARDIOGRAM PATIENT: Nery Rodriguez STUDY DATE: 10/19/2021 : 1950 AGE: 71 HT/WT: 185.4 cm (73 103 kg in) (226.5 lb) GENDER: M BP: 136 / 89 LOCATION: [facility] PATIENT Outpatient [facility] STATUS: *ORDERING PHYSICIAN: * Chris Sandoval MD *READING PHYSICIAN: * Jorge Cuadra MD, *PRESS TECHNICIAN: * OPAL Lezama -------- INDICATIONS: Abnormal EKG. -------- CONCLUSIONS SUMMARY: 1. Left ventricle: Systolic function is normal. The estimated ejection fraction is 65%. 2. Right ventricle: The cavity size is mildly dilated. Systolic function is normal. 3. Left atrium: The atrium is mildly dilated. 4. Right atrium: The atrium is mildly dilated. 5. Aortic valve: There is mild, 1+ regurgitation. 6. Aorta: The aorta is mildly dilated. -------- STUDY DATA: Complete transthoracic echocardiogram. Procedure: Image quality was good. M-mode, complete 2D, complete spectral Doppler, and color flow Doppler images were acquired and archived for permanent storage and are available for subsequent review. Study status: Routine. Patient status: Outpatient. -------- FINDINGS LEFT VENTRICLE: The cavity size is normal. Wall thickness is normal. Systolic function is normal. The estimated ejection fraction is 65%. There are no regional wall motion abnormalities. RIGHT VENTRICLE: The cavity size is mildly dilated. Systolic function Ultrasound Report is normal. Right ventricular systolic pressure is within the normal range. VENTRICULAR SEPTUM: There is no evidence of a ventricular septal defect. LEFT ATRIUM: The atrium is mildly dilated. RIGHT ATRIUM: The atrium is mildly dilated. Echodensity along the wall of RA is most likely a prominent tate terminalis. ATRIAL SEPTUM: Color Doppler shows no shunt. MITRAL VALVE: Structurally normal valve. Doppler: There is trivial, less than 1+ regurgitation. AORTIC VALVE: Structurally normal valve. Trileaflet. Doppler: There is mild, 1+ regurgitation. TRICUSPID VALVE: Structurally normal valve. Doppler: There is mild, 1+ regurgitation. PULMONIC VALVE: Structurally normal valve. Doppler: There is trivial, less than 1+ regurgitation. AORTA: The aorta is mildly dilated. PULMONARY ARTERY: Main pulmonary artery: Normal. PERICARDIUM: There is no pericardial effusion. SYSTEMIC VEINS: Inferior vena cava: The vessel is normal. The IVC collapses by greater than 50% with inspiration. -------- Measurements Value Reference Aortic root ID 3.8 cm <4.3 Aortic root ID, STJ, ED 2.8 cm 2.3 - 3.5 Aortic root ID/bsa, STJ, ED 1.2 cm/m^2 1.1 - 1.9 Value Reference Ascending aorta ID (H) 4.0 cm 2.2 - 3.8 Ascending aorta ID/bsa, A-P 1.8 cm/m^2 1.1 - 1.9 Ascending aorta ID, A-P, S 4.0 cm Ascending aorta ID/bsa, A-P, S 1.8 cm/m^2 Left ventricle Value Reference LV ID, ED 4.2 cm 4.2 - 5.8 LV ID, ES 3.1 cm 2.5 - 4.0 LV ID/bsa, ED (L) 1.9 cm/m^2 2.2 - 3.0 LV ID/bsa, ES 1.4 cm/m^2 1.3 - 2.1 LV PW thickness, ED 0.9 cm 0.6 - 1.0 LV PW/LV ID ratio, ED 0.21 LV wall mass 148 g 96 - 200 LV wall mass/bsa 65 g/m^2 50 - 102 Stroke volume/bsa, 1-p A2C 35.3 ml/m^2 LV end-diastolic volume, 1-p A4C 125 ml 69 - 185 LV end-systolic volume, 1-p A4C 43 ml 22 - 78 LV end-diastolic volume, 2-p 131 ml 62 - 150 LV end-systolic volume, 2-p 47 ml 21 - 61 LV ejection fraction, 2-p 65 % 52 - 72 LV E/e', lateral 7.2 LV E/e', medial 9.3 LV E/e', average 8.1 Ventricular septum Value Reference IVS thickness, ED (H) 1.2 cm 0.6 - 1.0 LVOT Value Reference LVOT ID, A-P 2.4 cm Ultrasound Report Aortic valve Value Reference Aortic regurg pressure half-time 409 ms Left atrium Value Reference LA volume/bsa, ES, 2-p 34 ml/m^2 16 - 34 Mitral valve Value Reference Mitral E-wave peak velocity 0.6 m/sec Mitral A-wave peak velocity 0.8 m/sec Mitral deceleration time 254 ms Mitral E/A ratio, peak 0.8 Tricuspid valve Value Reference Tricuspid regurg peak velocity 2.5 m/sec <=2.8 Tricuspid peak RV-RA gradient 26 mm Hg Right atrium Value Reference RA area, ES, A4C (H) 22 cm^2 10 - 18 Systemic (more content not included)... Normal [facility] Echocardiogram completeon TRANSTHORACIC ECHOCARDIOGRAM PATIENT: Nery Rodriguez STUDY DATE: 10/19/2021 : 1950 AGE: 71 HT/WT: 185.4 cm (73 103 kg in) (226.5 lb) GENDER: M BP: 136 / 89 LOCATION: [facility] PATIENT Outpatient [facility] STATUS: *ORDERING PHYSICIAN: * Chris Sandoval MD *READING PHYSICIAN: * Jorge Cuadra MD, *PRESS TECHNICIAN: * OPAL Lezama -------- INDICATIONS: Abnormal EKG. -------- CONCLUSIONS SUMMARY: 1. Left ventricle: Systolic function is normal. The estimated ejection fraction is 65%. 2. Right ventricle: The cavity size is mildly dilated. Systolic function is normal. 3. Left atrium: The atrium is mildly dilated. 4. Right atrium: The atrium is mildly dilated. 5. Aortic valve: There is mild, 1+ regurgitation. 6. Aorta: The aorta is mildly dilated. -------- STUDY DATA: Complete transthoracic echocardiogram. Procedure: Image quality was good. M-mode, complete 2D, complete spectral Doppler, and color flow Doppler images were acquired and archived for permanent storage and are available for subsequent review. Study status: Routine. Patient status: Outpatient. -------- FINDINGS LEFT VENTRICLE: The cavity size is normal. Wall thickness is normal. Systolic function is normal. The estimated ejection fraction is 65%. There are no regional wall motion abnormalities. RIGHT VENTRICLE: The cavity size is mildly dilated. Systolic function is normal. Right ventricular systolic pressure is within the normal range. VENTRICULAR SEPTUM: There is no evidence of a ventricular septal defect. LEFT ATRIUM: The atrium is mildly dilated. RIGHT ATRIUM: The atrium is mildly dilated. Echodensity along the wall of RA is most likely a prominent tate terminalis. ATRIAL SEPTUM: Color Doppler shows no shunt. MITRAL VALVE: Structurally normal valve. Doppler: There is trivial, less than 1+ regurgitation. AORTIC VALVE: Structurally normal valve. Trileaflet. Doppler: There is mild, 1+ regurgitation. TRICUSPID VALVE: Structurally normal valve. Doppler: There is mild, 1+ regurgitation. PULMONIC VALVE: Structurally normal valve. Doppler: There is trivial, less than 1+ regurgitation. AORTA: The aorta is mildly dilated. PULMONARY ARTERY: Main pulmonary artery: Normal. PERICARDIUM: There is no pericardial effusion. SYSTEMIC VEINS: Inferior vena cava: The vessel is normal. The IVC collapses by greater than 50% with inspiration. -------- Measurements Value Reference Aortic root ID 3.8 cm <4.3 Aortic root ID, STJ, ED 2.8 cm 2.3 - 3.5 Aortic root ID/bsa, STJ, ED 1.2 cm/m^2 1.1 - 1.9 Value Reference Ascending aorta ID (H) 4.0 cm 2.2 - 3.8 Ascending aorta ID/bsa, A-P 1.8 cm/m^2 1.1 - 1.9 Ascending aorta ID, A-P, S 4.0 cm Ascending aorta ID/bsa, A-P, S 1.8 cm/m^2 Left ventricle Value Reference LV ID, ED 4.2 cm 4.2 - 5.8 LV ID, ES 3.1 cm 2.5 - 4.0 LV ID/bsa, ED (L) 1.9 cm/m^2 2.2 - 3.0 LV ID/bsa, ES 1.4 cm/m^2 1.3 - 2.1 LV PW thickness, ED 0.9 cm 0.6 - 1.0 LV PW/LV ID ratio, ED 0.21 LV wall mass 148 g 96 - 200 LV wall mass/bsa 65 g/m^2 50 - 102 Stroke volume/bsa, 1-p A2C 35.3 ml/m^2 LV end-diastolic volume, 1-p A4C 125 ml 69 - 185 LV end-systolic volume, 1-p A4C 43 ml 22 - 78 LV end-diastolic volume, 2-p 131 ml 62 - 150 LV end-systolic volume, 2-p 47 ml 21 - 61 LV ejection fraction, 2-p 65 % 52 - 72 LV E/e', lateral 7.2 LV E/e', medial 9.3 LV E/e', average 8.1 Ventricular septum Value Reference IVS thickness, ED (H) 1.2 cm 0.6 - 1.0 LVOT Value Reference (more content not included)... [facility] Jorge Cuadra MD - 10/19/2021 TRANSTHORACIC ECHOCARDIOGRAM PATIENT: Nery Rodriguez STUDY DATE: 10/19/2021 : 1950 AGE: 71 HT/WT: 185.4 cm (73 103 kg in) (226.5 lb) GENDER: M BP: 136 / 89 LOCATION: [facility] PATIENT Outpatient [facility] STATUS: *ORDERING PHYSICIAN: * Chris Sandoval MD *READING PHYSICIAN: * Jorge Cuadra MD, *PRESS TECHNICIAN: * OPAL Lezama -------- INDICATIONS: Abnormal EKG. -------- CONCLUSIONS SUMMARY: 1. Left ventricle: Systolic function is normal. The estimated ejection fraction is 65%. 2. Right ventricle: The cavity size is mildly dilated. Systolic function is normal. 3. Left atrium: The atrium is mildly dilated. 4. Right atrium: The atrium is mildly dilated. 5. Aortic valve: There is mild, 1+ regurgitation. 6. Aorta: The aorta is mildly dilated. -------- STUDY DATA: Complete transthoracic echocardiogram. Procedure: Image quality was good. M-mode, complete 2D, complete spectral Doppler, and color flow Doppler images were acquired and archived for permanent storage and are available for subsequent review. Study status: Routine. Patient status: Outpatient. -------- FINDINGS LEFT VENTRICLE: The cavity size is normal. Wall thickness is normal. Systolic function is normal. The estimated ejection fraction is 65%. There are no regional wall motion abnormalities. RIGHT VENTRICLE: The cavity size is mildly dilated. Systolic function is normal. Right ventricular systolic pressure is within the normal range. VENTRICULAR SEPTUM: There is no evidence of a ventricular septal defect. LEFT ATRIUM: The atrium is mildly dilated. RIGHT ATRIUM: The atrium is mildly dilated. Echodensity along the wall of RA is most likely a prominent tate terminalis. ATRIAL SEPTUM: Color Doppler shows no shunt. MITRAL VALVE: Structurally normal valve. Doppler: There is trivial, less than 1+ regurgitation. AORTIC VALVE: Structurally normal valve. Trileaflet. Doppler: There is mild, 1+ regurgitation. TRICUSPID VALVE: Structurally normal valve. Doppler: There is mild, 1+ regurgitation. PULMONIC VALVE: Structurally normal valve. Doppler: There is trivial, less than 1+ regurgitation. AORTA: The aorta is mildly dilated. PULMONARY ARTERY: Main pulmonary artery: Normal. PERICARDIUM: There is no pericardial effusion. SYSTEMIC VEINS: Inferior vena cava: The vessel is normal. The IVC collapses by greater than 50% with inspiration. -------- Measurements Value Reference Aortic root ID 3.8 cm <4.3 Aortic root ID, STJ, ED 2.8 cm 2.3 - 3.5 Aortic root ID/bsa, STJ, ED 1.2 cm/m^2 1.1 - 1.9 Value Reference Ascending aorta ID (H) 4.0 cm 2.2 - 3.8 Ascending aorta ID/bsa, A-P 1.8 cm/m^2 1.1 - 1.9 Ascending aorta ID, A-P, S 4.0 cm Ascending aorta ID/bsa, A-P, S 1.8 cm/m^2 Left ventricle Value Reference LV ID, ED 4.2 cm 4.2 - 5.8 LV ID, ES 3.1 cm 2.5 - 4.0 LV ID/bsa, ED (L) 1.9 cm/m^2 2.2 - 3.0 LV ID/bsa, ES 1.4 cm/m^2 1.3 - 2.1 LV PW thickness, ED 0.9 cm 0.6 - 1.0 LV PW/LV ID ratio, ED 0.21 LV wall mass 148 g 96 - 200 LV wall mass/bsa 65 g/m^2 50 - 102 Stroke volume/bsa, 1-p A2C 35.3 ml/m^2 LV end-diastolic volume, 1-p A4C 125 ml 69 - 185 LV end-systolic volume, 1-p A4C 43 ml 22 - 78 LV end-diastolic volume, 2-p 131 ml 62 - 150 LV end-systolic volume, 2-p 47 ml 21 - 61 LV ejection fraction, 2-p 65 % 52 - 72 LV E/e', lateral 7.2 LV E/e', medial 9.3 LV E/e', average 8.1 Ventricular septum Value Reference IVS thickness, ED (H) 1.2 cm 0.6 - 1.0 LVOT Value Reference LVOT ID, A-P 2.4 cm Aortic valve Value Reference Aortic regurg pressure half-time 409 ms Left atrium Value Reference LA volume/bsa, ES, 2-p 34 ml/m^2 16 - 34 Mitral valve Value Reference Mitral E-wave peak velocity 0.6 m/sec Mitral A-wave peak velocity 0.8 m/sec Mitral deceleration time 254 ms Mitral E/A ratio, peak 0.8 Tricuspid valve Value Reference Tricuspid regurg peak velocity 2.5 m/sec <=2.8 Tricuspid peak RV-RA gradient 26 mm Hg Right atrium Value Reference RA area, ES, A4C (H) 22 cm^2 10 - 18 Systemic veins Value Reference Estimated RAP 3 mm Hg Right ventricle Value Reference TAPSE, 2D 2.1 cm 1.7 - 3.1 RV pressure, S, DP 29 mm Hg RV s', lateral 11.8 cm/sec 6.0 - 13.4 Pulmonic valve Value Reference Pulm (more content not included)... [employer] Work Phone: Echocardiogram completeOrder ed By: Jorge Cuadra on 10-19-2021 [employer] Work Phone: CT CHEST LOW DOSE (LDCT)on 0 10-18-2021 [facility]: [id number] Computed Tomography ACCESSION EXAM DATE/TIME PROCEDURE ORDERING PROVIDER [id number] 10/18/2021 09:[address] Low Dose Thorax w/o MD JULISSA, SHAWANDA Valente CPT code 81341 Reason For Exam (CT Low Dose Thorax w/o Cont) Tobacco use Report EXAMINATION: Low dose CT of the chest without intravenous contrast. EXAM DATE & TIME: 10/18/2021 8:32 AM EST INDICATION: Tobacco use ADDITIONAL INFORMATION: 71-year-old male with tobacco use presents for lung nodule screening COMPARISON: CT abdomen pelvis dated 08/28/2020 LIMITATIONS: Evaluation of the vasculature and solid viscera is limited due to the lack of intravenous contrast. TECHNIQUE: [address] images were obtained of the chest. Images were reformatted in coronal and sagittal projections using the raw CT data and were interpreted in conjunction with the axial images to render the findings listed below. Low dose technique employed with automated exposure control. FINDINGS: Cardiovascular: Atherosclerotic vascular calcifications are present in the aorta and coronary arteries. The pulmonary trunk measures up to 3.2 cm on series 2, image 53. Mediastinum/pericardi um: Unremarkable. Thyroid: Unremarkable. Central airways: Debris is present in the trachea. The central airways are otherwise widely patent. Pleura: No pleural effusion or pneumothorax. Lungs: Centrilobular emphysema is present. There is bibasilar scarring/atelectasis. Nodules: There is a 5 mm soft tissue nodule in the medial left upper lobe (series 6, image 191). Computed Tomography Report Lymph nodes: No emerging adenopathy. Visualized musculoskeletal structures: No acute osseous abnormality is demonstrated. There is spondylosis. Included images of the upper abdomen: There is a 7.1 cm hypodensity in the right hepatic lobe, most compatible with a benign cyst/hemangioma. This is grossly stable dating back to August 2020. Additional smaller scattered hepatic hypodensities also appear stable. Hyperdensities in the distal esophagus likely relate to ingested material. IMPRESSION: 1. Centrilobular emphysema with a soft tissue nodule in the medial left upper lobe. 2. Dilation of the pulmonary trunk, which can be seen in the setting of pulmonary arterial hypertension. ASSESSMENT CATEGORY: Lung-RADS Category 3 - Probably benign finding(s). Recommend low-dose diagnostic chest CT in 6 months. Lung-RADS Version 1.1 Assessment Categories - for Screening CT Chest Only. Release date: March 07, 2019 Category 1 - Negative - Continue annual screening with low-dose CT No nodules Nodules with benign characteristics (complete, central, popcorn Ca++) or fat Category 2 - Benign appearance or behavior - Continue annual screening with low-dose CT Perifissural nodule(s) < 10 mm (see note 11 below) Solid nodule(s): < 6 mm or new < 4 mm Part solid nodule(s): < 6 mm total diameter on baseline screening Nonsolid nodule(s) (GGN): < 30 mm OR >/= 30 mm and unchanged or slowly growing Category 3 or 4 nodules unchanged for >/= 3 months Category 3 - Probably benign finding(s) - 6 month follow up with low-dose CT Solid nodule(s): 6 to < 8 mm at baseline OR new 4 mm to < 6 mm Part solid nodule(s) >/= 6 mm total diameter with solid component < 6 mm OR new < 6 mm total diameter Nonsolid nodule(s) (GGN) >/= [address] or new Category 4A - Suspicious - 3 month low-dose CT follow up or PET/CT when >/= 8 mm solid component Solid nodule(s): 8 to < 15 mm at baseline OR growing < 8 mm OR new 6 to <8 mm Part solid nodule(s): >/= 6 mm with solid component >/= 6 mm to < 8 mm OR with a new or growing < 4 mm solid component Any endobronchial nodule Category 4B - Very Suspicious - chest CT with or without contrast, PET/CT and/or tissue sampling depending on the *probability of malignancy and comorbidities. PET/CT may be used when there is a >/= 8 mm solid component. For new large nodules that develop on an annual repeat screening CT, a [address] may be recommended to address potentially inflammatory or infections conditions. Solid nodule(s): >/= 15 mm OR new or growing, and >/= 8 mm Part solid nodule(s) with: a solid component >/= 8 mm OR a new or growing >/= 4 mm solid component Category 4X - Very Suspicious - (same work up as Category 4B) Category 3 or 4 nodules with additional features or imaging findings that Computed Tomography Report increases the suspicion of malignancy - spiculation, rapid growth or associated lymph node enlargement Modifier to add to Category 0-4: Category S - Clini (more content not included)... Bryson Nicole MD - 10/18/2021 [facility]: [id number] Computed Tomography ACCESSION EXAM DATE/TIME PROCEDURE ORDERING PROVIDER [id number] 10/18/2021 09:[address] Low Dose Thorax w/o MD JULISSA, SHAWANDA Cont CPT code 58800 Reason For Exam (CT Low Dose Thorax w/o Cont) Tobacco use Report EXAMINATION: Low dose CT of the chest without intravenous contrast. EXAM DATE & TIME: 10/18/2021 8:32 AM EST INDICATION: Tobacco use ADDITIONAL INFORMATION: 71-year-old male with tobacco use presents for lung nodule screening COMPARISON: CT abdomen pelvis dated 08/28/2020 LIMITATIONS: Evaluation of the vasculature and solid viscera is limited due to the lack of intravenous contrast. TECHNIQUE: [address] images were obtained of the chest. Images were reformatted in coronal and sagittal projections using the raw CT data and were interpreted in conjunction with the axial images to render the findings listed below. Low dose technique employed with automated exposure control. FINDINGS: Cardiovascular: Atherosclerotic vascular calcifications are present in the aorta and coronary arteries. The pulmonary trunk measures up to 3.2 cm on series 2, image 53. Mediastinum/pericardi um: Unremarkable. Thyroid: Unremarkable. Central airways: Debris is present in the trachea. The central airways are otherwise widely patent. Pleura: No pleural effusion or pneumothorax. Lungs: Centrilobular emphysema is present. There is bibasilar scarring/atelectasis. Nodules: There is a 5 mm soft tissue nodule in the medial left upper lobe (series 6, image 191). Computed Tomography Report Lymph nodes: No emerging adenopathy. Visualized musculoskeletal structures: No acute osseous abnormality is demonstrated. There is spondylosis. Included images of the upper abdomen: There is a 7.1 cm hypodensity in the right hepatic lobe, most compatible with a benign cyst/hemangioma. This is grossly stable dating back to August 2020. Additional smaller scattered hepatic hypodensities also appear stable. Hyperdensities in the distal esophagus likely relate to ingested material. IMPRESSION: 1. Centrilobular emphysema with a soft tissue nodule in the medial left upper lobe. 2. Dilation of the pulmonary trunk, which can be seen in the setting of pulmonary arterial hypertension. ASSESSMENT CATEGORY: Lung-RADS Category 3 - Probably benign finding(s). Recommend low-dose diagnostic chest CT in 6 months. Lung-RADS Version 1.1 Assessment Categories - for Screening CT Chest Only. Release date: March 07, 2019 Category 1 - Negative - Continue annual screening with low-dose CT No nodules Nodules with benign characteristics (complete, central, popcorn Ca++) or fat Category 2 - Benign appearance or behavior - Continue annual screening with low-dose CT Perifissural nodule(s) < 10 mm (see note 11 below) Solid nodule(s): < 6 mm or new < 4 mm Part solid nodule(s): < 6 mm total diameter on baseline screening Nonsolid nodule(s) (GGN): < 30 mm OR >/= 30 mm and unchanged or slowly growing Category 3 or 4 nodules unchanged for >/= 3 months Category 3 - Probably benign finding(s) - 6 month follow up with low-dose CT Solid nodule(s): 6 to < 8 mm at baseline OR new 4 mm to < 6 mm Part solid nodule(s) >/= 6 mm total diameter with solid component < 6 mm OR new < 6 mm total diameter Nonsolid nodule(s) (GGN) >/= [address] or new Category 4A - Suspicious - 3 month low-dose CT follow up or PET/CT when >/= 8 mm solid component Solid nodule(s): 8 to < 15 mm at baseline OR growing < 8 mm OR new 6 to <8 mm Part solid nodule(s): >/= 6 mm with solid component >/= 6 mm to < 8 mm OR with a new or growing < 4 mm solid component Any endobronchial nodule Category 4B - Very Suspicious - chest CT with or without contrast, PET/CT and/or tissue sampling depending on the *probability of malignancy and comorbidities. PET/CT may be used when there is a >/= 8 mm solid component. For new large nodules that develop on an annual repeat screening CT, a [address] may be recommended to address potentially inflammatory or infections conditions. Solid nodule(s): >/= 15 mm OR new or growing, and >/= 8 mm Part solid nodule(s) with: a solid component >/= 8 mm OR a new or growing >/= 4 mm solid component Category 4X - Very Suspicious - (same work up as Category 4B) Category 3 or 4 nodules with additional features or imaging findings that Computed Tomography Report increases the suspicion of malignancy - spiculation, rapid growth or associated lymph node enlargement Modifier to add to Category 0-4: Category S - Clinically or potentially significant non lung cancer related findings IMPORTANT NOTES FOR USE: 1. Negative screen: does not mean that an individual freedman (more content not included)... [employer] Work Phone: Radiology Study observation (narrative) [employer] Work Phone: CT CHEST LOW DOSE (LDCT)Orde red By: Bryson Tao on 10-18-2021 [employer] Work Phone: CT Low Dose Lung Diagnostico n 10-18-2021 CT Low Dose Lung Diagnostic Patient Name: NERY RODRIGUEZ Computed Tomography ACCESSION EXAM DATE/TIME PROCEDURE ORDERING PROVIDER [id number] 10/18/2021 09:[address] Low Dose Thorax w/o MD JULISSA, SHAWANDA Cont CPT code 78626 Reason For Exam (CT Low Dose Thorax w/o Cont) Tobacco use Report EXAMINATION: Low dose CT of the chest without intravenous contrast. EXAM DATE and TIME: 10/18/2021 8:32 AM EST INDICATION: Tobacco use ADDITIONAL INFORMATION: 71-year-old male with tobacco use presents for lung nodule screening COMPARISON: CT abdomen pelvis dated 08/28/2020 LIMITATIONS: Evaluation of the vasculature and solid viscera is limited due to the lack of intravenous contrast. TECHNIQUE: [address] images were obtained of the chest. Images were reformatted in coronal and sagittal projections using the raw CT data and were interpreted in conjunction with the axial images to render the findings listed below. Low dose technique employed with automated exposure control. FINDINGS: Cardiovascular: Atherosclerotic vascular calcifications are present in the aorta and coronary arteries. The pulmonary trunk measures up to 3.2 cm on series 2, image 53. Mediastinum/pericardi um: Unremarkable. Thyroid: Unremarkable. Central airways: Debris is present in the trachea. The central airways are otherwise widely patent. Pleura: No pleural effusion or pneumothorax. Lungs: Centrilobular emphysema is present. There is bibasilar scarring/atelectasis. Nodules: There is a 5 mm soft tissue nodule in the medial left upper lobe (series 6, image 191). Computed Tomography Report Lymph nodes: No emerging adenopathy. Visualized musculoskeletal structures: No acute osseous abnormality is demonstrated. There is spondylosis. Included images of the upper abdomen: There is a 7.1 cm hypodensity in the right hepatic lobe, most compatible with a benign cyst/hemangioma. This is grossly stable dating back to August 2020. Additional smaller scattered hepatic hypodensities also appear stable. Hyperdensities in the distal esophagus likely relate to ingested material. IMPRESSION: 1. Centrilobular emphysema with a soft tissue nodule in the medial left upper lobe. 2. Dilation of the pulmonary trunk, which can be seen in the setting of pulmonary arterial hypertension. ASSESSMENT CATEGORY: Lung-RADS Category 3 - Probably benign finding(s). Recommend low-dose diagnostic chest CT in 6 months. Lung-RADS Version 1.1 Assessment Categories - for Screening CT Chest Only. Release date: March 07, 2019 Category 1 - Negative - Continue annual screening with low-dose CT No nodules Nodules with benign characteristics (complete, central, popcorn Ca++) or fat Category 2 - Benign appearance or behavior - Continue annual screening with low-dose CT Perifissural nodule(s) < 10 mm (see note 11 below) Solid nodule(s): < 6 mm or new < 4 mm Part solid nodule(s): < 6 mm total diameter on baseline screening Nonsolid nodule(s) (GGN): < 30 mm OR >/= 30 mm and unchanged or slowly growing Category 3 or 4 nodules unchanged for >/= 3 months Category 3 - Probably benign finding(s) - 6 month follow up with low-dose CT Solid nodule(s): 6 to < 8 mm at baseline OR new 4 mm to < 6 mm Part solid nodule(s) >/= 6 mm total diameter with solid component < 6 mm OR new < 6 mm total diameter Nonsolid nodule(s) (GGN) >/= [address] or new Category 4A - Suspicious - 3 month low-dose CT follow up or PET/CT when >/= 8 mm solid component Solid nodule(s): 8 to < 15 mm at baseline OR growing < 8 mm OR new 6 to <8 mm Part solid nodule(s): >/= 6 mm with solid component >/= 6 mm to < 8 mm OR with a new or growing < 4 mm solid component Any endobronchial nodule Category 4B - Very Suspicious - chest CT with or without contrast, PET/CT and/or tissue sampling depending on the *probability of malignancy and comorbidities. PET/CT may be used when there is a >/= 8 mm solid component. For new large nodules that develop on an annual repeat screening CT, a [address] may be recommended to address potentially inflammatory or infections conditions. Solid nodule(s): >/= 15 mm OR new or growing, and >/= 8 mm Part solid nodule(s) with: a solid component >/= 8 mm OR a new or growing >/= 4 mm solid component Category 4X - Very Suspicious - (same work up as Category 4B) Category 3 or 4 nodules with additional features or imaging findings that Computed Tomography Report increases the suspicion of malignancy - spiculation, rapid growth or associated lymph node enlargement Modifier to add to Category 0-4: Category S - Clinically or potentially significant non lung cancer related findings IMPORTANT NOTES FOR USE: 1. Negative screen: does not mean that an individual does not have lung cancer. 2. Size: to calculate nodule mean diameter, measure both the long and short axis to one decimal point and report mean nodu (more content not included)... Normal [facility] Comp Metabolic Panelon 09-16 ALT [Catalytic activity/Vol] 19 U/L Normal 0-49 [facility] Comment on above: Result Comment: The ALT test is performed by an updated assay method. Please note that the reference intervals have been changed and are now sex specific. Performed By: #### C MP3, HEMDF, PSA3, LIPD2 #### [facility] [address] [place] [address] Calcium [Mass/Vol] 9.8 mg/dL Normal 8.4-10.4 [facility] Comment on above: Performed By: #### C MP3, HEMDF, PSA3, LIPD2 #### [facility] [address] [place] [address] ALP [Catalytic activity/Vol] 75 U/L Normal 38-126 [facility] Comment on above: Performed By: #### C MP3, HEMDF, PSA3, LIPD2 #### [facility] [address] [place] [address] Anion gap [Moles/Vol] 3 mmol/L Normal 3-13 [facility] Comment on above: Performed By: #### C MP3, HEMDF, PSA3, LIPD2 #### [facility] [address] [place] [address] AST [Catalytic activity/Vol] 36 U/L Normal 15-46 [facility] Comment on above: Performed By: #### C MP3, HEMDF, PSA3, LIPD2 #### [facility] [address] [place] [address] Bilirubin [Mass/Vol] 0.8 mg/dL Normal 0.2-1.3 [facility] Comment on above: Performed By: #### C MP3, HEMDF, PSA3, LIPD2 #### [facility] [address] [place] [address] CO2 [Moles/Vol] 30 mmol/L Normal 22-30 [facility] Comment on above: Performed By: #### C MP3, HEMDF, PSA3, LIPD2 #### [facility] [address] [place] [address] Creatinine [Mass/Vol] 0.92 mg/dL Normal 0.52-1.25 [facility] Comment on above: Performed By: #### C MP3, HEMDF, PSA3, LIPD2 #### [facility] [address] [place] [address] GFR/1.73 sq M.predicted among blacks MDRD (S/P/Bld) [Vol rate/Area] mL/min/{1.73_m2} Normal >60 [facility] Comment on above: Performed By: #### C MP3, HEMDF, PSA3, LIPD2 #### [facility] [address] [place] [address] GFR/1.73 sq M.predicted among non-blacks MDRD (S/P/Bld) [Vol rate/Area] 83.9 mL/min/{1.73_m2} Normal >60 [facility] Comment on above: Result Comment: KDIG O guidelines provide the following GFR categories: Stage GFR(ml/min/1.73 m2) Terms G1 >=90 Normal or high G2 60-89 Mildly decreased* G3a 45-59 Mildly to moderately decreased G3b 30-44 Moderately to severely decreased G4 15-29 Severely decreased G5 <15 Kidney failure *Relative to young adult level. In the absence of evidence of kidney damage, neither GFR category G1 nor G2 fulfill the criteria for CKD. The CKD-EPI equation is validated in individuals 18 years of age and older. Currently the best equation for estimating glomerular filtration rate (GFR) from serum creatinine in children is the Bedside Chavez equation. It is less accurate in patients with extremes of muscle mass, restriction of dietary protein, ingestion of creatine, extra-renal metabolism of creatinine, or treatment with medications that affect renal tubular creatinine secretion. Performed By: #### C MP3, HEMDF, PSA3, LIPD2 #### [facility] [address] [place] [address] Glucose [Mass/Vol] 96 mg/dL Normal 70-100 [facility] Comment on above: Performed By: #### C MP3, HEMDF, PSA3, LIPD2 #### [facility] [address] [place] [address] Protein [Mass/Vol] 6.9 g/dL Normal 6.3-8.2 [facility] Comment on above: Performed By: #### C MP3, HEMDF, PSA3, LIPD2 #### [facility] [address] [place] [address] Urea nitrogen [Mass/Vol] 20 mg/dL High 7-17 [facility] Comment on above: Performed By: #### C MP3, HEMDF, PSA3, LIPD2 #### [facility] [address] [place] [address] Potassium [Moles/Vol] 3.6 mmol/L Normal 3.5-5.1 [facility] Comment on above: Performed By: #### C MP3, HEMDF, PSA3, LIPD2 #### [facility] [address] [place] [address] Sodium [Moles/Vol] 141 mmol/L Normal 135-145 [facility] Comment on above: Performed By: #### C MP3, HEMDF, PSA3, LIPD2 #### [facility] [place] [address] Albumin [Mass/Vol] 3.9 g/dL Normal 3.5-5.0 [facility] Comment on above: Performed By: #### C MP3, HEMDF, PSA3, LIPD2 #### [facility] [address] [place] [address] Chloride [Moles/Vol] 107 mmol/L Normal 98-107 [facility] Comment on above: Performed By: #### C MP3, HEMDF, PSA3, LIPD2 #### [facility] [address] [place] [address] Hemogram w/ Autodiffon 09-16 Abs Baso Cnt 0.0 10*3/uL Normal 0.0-0.2 [facility] Comment on above: Performed By: #### C MP3, HEMDF, PSA3, LIPD2 #### [address] [place] [address] Abs Neutrophile Cnt 2.9 10*3/uL Normal 1.8-7.0 [facility] Comment on above: Performed By: #### C MP3, HEMDF, PSA3, LIPD2 #### [address] [place] [address] Basophils/100 WBC (Bld) 1.0 % Normal 0.0-2.0 [facility] Comment on above: Performed By: #### C MP3, HEMDF, PSA3, LIPD2 #### [address] [place] [address] Eosinophils (Bld) [#/Vol] 0.2 10*3/uL Normal 0.0-0.5 [facility] Comment on above: Performed By: #### C MP3, HEMDF, PSA3, LIPD2 #### [address] [place] [address] Eosinophils/100 WBC (Bld) 3.4 % Normal 1.0-6.0 [facility] Comment on above: Performed By: #### C MP3, HEMDF, PSA3, LIPD2 #### [facility] [address] [place] [address] Erythrocyte distribution width (RBC) [Ratio] 12.9 % Normal 11.5-14.5 [facility] Comment on above: Performed By: #### C MP3, HEMDF, PSA3, LIPD2 #### [facility] [address] [place] [address] Granulocytes/100 WBC (Bld) 59.5 % Normal 40.0-80.0 [facility] Comment on above: Performed By: #### C MP3, HEMDF, PSA3, LIPD2 #### [facility] [address] [place] [address] Hematocrit (Bld) [Volume fraction] 39.3 % Low 40.0-52.0 [facility] Comment on above: Performed By: #### C MP3, HEMDF, PSA3, LIPD2 #### [address] [place] [address] Hemoglobin (Bld) [Mass/Vol] 13.5 g/dL Normal 13.0-18.0 [facility] Comment on above: Performed By: #### C MP3, HEMDF, PSA3, LIPD2 #### [address] [place] [address] Lymphocytes (Bld) [#/Vol] 1.4 10*3/uL Normal 1.0-4.3 [facility] Comment on above: Performed By: #### C MP3, HEMDF, PSA3, LIPD2 #### [address] [place] [address] Lymphocytes/100 WBC (Bld) 27.9 % Normal 20.0-40.0 [facility] Comment on above: Performed By: #### C MP3, HEMDF, PSA3, LIPD2 #### [address] [place] [address] MCH (RBC) [Entitic mass] 32.3 pg Normal 26.0-34.0 [facility] Comment on above: Performed By: #### C MP3, HEMDF, PSA3, LIPD2 #### [address] [place] [address] MCHC 34.4 % Normal 32.0-36.0 [facility] Comment on above: Performed By: #### C MP3, HEMDF, PSA3, LIPD2 #### [facility] [address] [place] [address] MCV (RBC) [Entitic vol] 93.9 fL Normal 80.0-98.0 [facility] Comment on above: Performed By: #### C MP3, HEMDF, PSA3, LIPD2 #### [facility] [address] [place] [address] Monocytes (Bld) [#/Vol] 0.4 10*3/uL Normal 0.0-0.8 [facility] Comment on above: Performed By: #### C MP3, HEMDF, PSA3, LIPD2 #### [facility] [address] [place] [address] Monocytes/100 WBC (Bld) 8.2 % Normal 2.0-10.0 [facility] Comment on above: Performed By: #### C MP3, HEMDF, PSA3, LIPD2 #### [facility] [address] [place] [address] Platelet mean volume (Bld) [Entitic vol] 7.2 fL Low 7.4-10.4 [facility] Comment on above: Performed By: #### C MP3, HEMDF, PSA3, LIPD2 #### [facility] [address] [place] [address] Platelets (Bld) [#/Vol] 250 10*3/uL Normal 140-440 [facility] Comment on above: Performed By: #### C MP3, HEMDF, PSA3, LIPD2 #### [facility] [address] [place] [address] RBC (Bld) [#/Vol] 4.19 10*6/uL Low 4.40-5.90 [facility] Comment on above: Performed By: #### C MP3, HEMDF, PSA3, LIPD2 #### [facility] [address] [place] [address] WBC (Bld) [#/Vol] 4.9 10*3/uL Normal 3.6-10.7 [facility] Comment on above: Performed By: #### C MP3, HEMDF, PSA3, LIPD2 #### [facility] [address] [place] [address] Lipid Panelon 09-16-2021 Chol/HDL 4 Normal [facility] Comment on above: Result Comment: Ref Range: < 3 Low Risk for CHD 3-6 Mod Risk for CHD > 6 High Risk for CHD Performed By: #### C MP3, HEMDF, PSA3, LIPD2 #### [facility] [address] [place] [address] Cholesterol in HDL [Mass/Vol] 50 mg/dL Normal 40-60 [facility] Comment on above: Performed By: #### C MP3, HEMDF, PSA3, LIPD2 #### [facility] [address] [place] [address] Low Density Lipoprotein 129 mg/dL Abnormal <100 [facility] Comment on above: Performed By: #### C MP3, HEMDF, PSA3, LIPD2 #### [facility] [address] [place] [address] Cholesterol [Mass/Vol] 197 mg/dL Normal < 200 [facility] Comment on above: Performed By: #### C MP3, HEMDF, PSA3, LIPD2 #### [facility] [address] [place] [address] Triglyceride [Mass/Vol] 88 mg/dL Normal <150 [facility] Comment on above: Performed By: #### C MP3, HEMDF, PSA3, LIPD2 #### [facility] [address] [place] [address] Prostatic Specific Ag- Diagn osticon 09-16-2021 Prostatic Specific Ag 3.958 ng/mL Normal < 4.000 [facility] Comment on above: Result Comment: Test ing performed on the [employer] using an immunometric methodology. Results obtained by different methods should not be used interchangeably. Performed By: #### C MP3, HEMDF, PSA3, LIPD2 #### [facility] [address] [place] [address] MRI Brain w/ + w/o Contrasto n 08-13-2021 MRI Brain w/ + w/o Contrast Patient Name: NERY RODRIGUEZ Magnetic Resonance Imaging ACCESSION EXAM DATE/TIME PROCEDURE ORDERING PROVIDER [id number] 08/13/2021 14:10 EDT MRI Brain w/ + w/o MD JULISSA, SHAWANDA Contrast CPT code 24143 Reason For Exam (MRI Brain w/ + w/o Contrast) Dizziness and giddiness Report Indication: Dizziness. Presyncope. MRI of the brain with and without contrast. 11.5 mL of Gadavist utilized. Multiplanar multisequence imaging of the brain performed. Ventricles are normal in size for the patient's age and midline in position. No abnormal extra-axial fluid collections. No areas of mass effect. Lehman-white matter differentiation is maintained. Mild periventricular leukomalacia noted. No other abnormal signal changes in the brain. Diffusion images are negative. The internal auditory canals are symmetric. Normal-appearing signal flow voids are shown intracranial vertebral, basilar, internal carotid and proximal middle cerebral arteries bilaterally. Corpus callosum, optic chiasm, pituitary gland, lisa and craniovertebral junction are within normal limits. Postcontrast images show no abnormal enhancement of the brain or meninges. No enhancing lesions are shown. Postcontrast enhanced images show normal normal enhancement of the major intracranial vascular structures, choroid plexus and venous sinuses. The orbits are symmetric. Visualized paranasal sinuses are normally aerated. IMPRESSION: No significant intracranial abnormality on noncontrast and contrast-enhanced images of the brain. Report Dictated on Final Dictating Physician: MD BUCHANAN LAURA Signed Date and Time: 08/13/2021 2:38 pm Signed by: MD BUCHANAN LAURA Transcribed Date and Time: 08/13/2021 2:39 Normal [facility] VL Carotid BilateralOrdered By: Shawanda Costa on 07-20-2021 Patient Name: NERY RODRIGUEZ Ultrasound ACCESSION EXAM DATE/TIME PROCEDURE ORDERING PROVIDER [id number] 07/20/2021 09:04 EDT VL Carotid Duplex MD COSTA DIANA Ultrasound Complete CPT code 05859 Reason For Exam (VL Carotid Duplex Ultrasound Complete) Dizziness and giddiness Report BILATERAL CAROTID ULTRASOUND: CLINICAL INDICATION: Dizziness and headache. TECHNIQUE: Two-dimensional, Color-flow and spectral Doppler sonography of the extracranial arterial circulation was performed. COMPARISON: None. FINDINGS: RIGHT: Plaque: Minimal plaque identified CCA peak systolic: 91 cm/sec CCA end diastolic: 30 cm/sec ICA peak systolic: 71 cm/sec ICA end diastolic: 31 cm/sec ICA/CCA ratio: 0.8 Estimated ICA stenosis: Less than 50% ECA systolic: 71 cm/sec Vertebral: Antegrade LEFT: Plaque: Minimal plaque identified CCA peak systolic: 76 cm/sec CCA end diastolic: 26 cm/sec ICA peak systolic: 87 cm/sec ICA end diastolic: 41 cm/sec ICA/CCA ratio: 1.2 Estimated ICA stenosis: Less than 50% ECA systolic: 105 cm/sec Vertebral: Antegrade IMPRESSION: No hemodynamically significant internal carotid stenosis (less than 50% stenosis) on the left and right. Patent vertebral arteries. This radiologist maintains RVT certification. Reference: Ultrasound Report Measurement of carotid stenosis is a ratio based on conventional angiographic data from the NASCET trials with the smallest caliber of the internal carotid as the numerator and normal post-stenotic internal carotid caliber as denominator. Stenosis based upon Society of Radiologists in Ultrasound consensus: <50%: ICA PS <125 cm/sec, ICA ED <40 cm/sec, ICA/CCA ratio <2.0 50-69%: ICA PS 125-230 cm/sec , ICA ED 40-100 cm/sec, ICA/CCA ratio 2-4 >70%: ICA PS >230 cm/sec, ICA ED >100 cm/sec, ICA/CCA ratio >4 Report Dictated on --- Final --- Dictating Physician: MD NELSON JEFFREY Signed Date and Time: 07/20/2021 6:51 pm Signed by: MD NELSON JEFFREY Transcribed Date and Time: 07/20/2021 6:52 Cardiovascular ACCESSION EXAM DATE/TIME PROCEDURE [id number] 07/20/2021 09:04 EDT Carotid Duplex Ultrasound Complete CPT code 82952 Reason For Exam (VL Carotid Duplex Ultrasound Complete) Dizziness and giddiness Report BILATERAL CAROTID ULTRASOUND: CLINICAL INDICATION: Dizziness and headache. TECHNIQUE: Two-dimensional, Color-flow and spectral Doppler sonography of the extracranial arterial circulation was performed. COMPARISON: None. FINDINGS: RIGHT: Plaque: Minimal plaque identified CCA peak systolic: 91 cm/sec CCA end diastolic: 30 cm/sec ICA peak systolic: 71 cm/sec ICA end diastolic: 31 cm/sec ICA/CCA ratio: 0.8 Estimated ICA stenosis: Less than 50% ECA systolic: 71 cm/sec Vertebral: Antegrade LEFT: Plaque: Minimal plaque identified CCA peak systolic: 76 cm/sec CCA end diastolic: 26 cm/sec Cardiovascular Report ICA peak systolic: 87 cm/sec ICA end diastolic: 41 cm/sec ICA/CCA ratio: 1.2 Estimated ICA stenosis: Less than 50% ECA systolic: 105 cm/sec Vertebral: Antegrade IMPRESSION: No hemodynamically significant internal carotid stenosis (less than 50% stenosis) on the left and right. Patent vertebral arteries. This radiologist maintains RVT certification. Reference: Measurement of carotid stenosis is a ratio based on conventional angiographic data from the NASCET trials with the smallest caliber of the internal carotid as the numerator and normal post-stenotic internal carotid caliber as denominator. Stenosis based upon Society of Radiologists in Ultrasound consensus: <50%: ICA PS <125 cm/sec, ICA ED <40 cm/sec, ICA/CCA ratio <2.0 50-69%: ICA PS 125-230 cm/sec , ICA ED 40-100 cm/sec, ICA/CCA ratio 2-4 >70%: ICA PS >230 cm/sec, ICA ED >100 cm/sec, ICA/CCA ratio >4 Report Dictated on --- Final --- Dictating Physician: MD NELSON JEFFREY Signed Date and Time: 07/20/2021 6:51 pm Signed by: MD NELSON JEFFREY Transcribed Date and Time: 07/20/2021 6:52 [facility] Work Phone: [facility], [facility] Incoming Cardiology Results From [facility] - 07/20/2021 6:52 PM EDT [facility]: [id number] Ul[facility]ound ACCESSION EXAM DATE/TIME PROCEDURE ORDERING PROVIDER [id number] 07/20/2021 09:04 EDT VL Carotid Duplex MD COSTA DIANA Ultrasound Complete CPT code 14556 Reason For Exam (VL Carotid Duplex Ultrasound Complete) Dizziness and giddiness Report BILATERAL CAROTID ULTRASOUND: CLINICAL INDICATION: Dizziness and headache. TECHNIQUE: Two-dimensional, Color-flow and spectral Doppler sonography of the extracranial arterial circulation was performed. COMPARISON: None. FINDINGS: RIGHT: Plaque: Minimal plaque identified CCA peak systolic: 91 cm/sec CCA end diastolic: 30 cm/sec ICA peak systolic: 71 cm/sec ICA end diastolic: 31 cm/sec ICA/CCA ratio: 0.8 Estimated ICA stenosis: Less than 50% ECA systolic: 71 cm/sec Vertebral: Antegrade LEFT: Plaque: Minimal plaque identified CCA peak systolic: 76 cm/sec CCA end diastolic: 26 cm/sec ICA peak systolic: 87 cm/sec ICA end diastolic: 41 cm/sec ICA/CCA ratio: 1.2 Estimated ICA stenosis: Less than 50% ECA systolic: 105 cm/sec Vertebral: Antegrade IMPRESSION: No hemodynamically significant internal carotid stenosis (less than 50% stenosis) on the left and right. Patent vertebral arteries. This radiologist maintains RVT certification. Reference: Ultrasound Report Measurement of carotid stenosis is a ratio based on conventional angiographic data from the NASCET trials with the smallest caliber of the internal carotid as the numerator and normal post-stenotic internal carotid caliber as denominator. Stenosis based upon Society of Radiologists in Ultrasound consensus: <50%: ICA PS <125 cm/sec, ICA ED <40 cm/sec, ICA/CCA ratio <2.0 50-69%: ICA PS 125-230 cm/sec , ICA ED 40-100 cm/sec, ICA/CCA ratio 2-4 >70%: ICA PS >230 cm/sec, ICA ED >100 cm/sec, ICA/CCA ratio >4 Report Dictated on --- Final --- Dictating Physician: MD NELSON JEFFREY Signed Date and Time: 07/20/2021 6:51 pm Signed by: MD NELSON JEFFREY Transcribed Date and Time: 07/20/2021 6:52 Cardiovascular ACCESSION EXAM DATE/TIME PROCEDURE [id number] 07/20/2021 09:04 EDT Carotid Duplex Ultrasound Complete CPT code 29103 Reason For Exam (VL Carotid Duplex Ultrasound Complete) Dizziness and giddiness Report BILATERAL CAROTID ULTRASOUND: CLINICAL INDICATION: Dizziness and headache. TECHNIQUE: Two-dimensional, Color-flow and spectral Doppler sonography of the extracranial arterial circulation was performed. COMPARISON: None. FINDINGS: RIGHT: Plaque: Minimal plaque identified CCA peak systolic: 91 cm/sec CCA end diastolic: 30 cm/sec ICA peak systolic: 71 cm/sec ICA end diastolic: 31 cm/sec ICA/CCA ratio: 0.8 Estimated ICA stenosis: Less than 50% ECA systolic: 71 cm/sec Vertebral: Antegrade LEFT: Plaque: Minimal plaque identified CCA peak systolic: 76 cm/sec CCA end diastolic: 26 cm/sec Cardiovascular Report ICA peak systolic: 87 cm/sec ICA end diastolic: 41 cm/sec ICA/CCA ratio: 1.2 Estimated ICA stenosis: Less than 50% ECA systolic: 105 cm/sec Vertebral: Antegrade IMPRESSION: No hemodynamically significant internal carotid stenosis (less than 50% stenosis) on the left and right. Patent vertebral arteries. This radiologist maintains RVT certification. Reference: Measurement of carotid stenosis is a ratio based on conventional angiographic data from the NASCET trials with the smallest caliber of the internal carotid as the numerator and normal post-stenotic internal carotid caliber as denominator. Stenosis based upon Society of Radiologists in Ultrasound consensus: <50%: ICA PS <125 cm/sec, ICA ED <40 cm/sec, ICA/CCA ratio <2.0 50-69%: ICA PS 125-230 cm/sec , ICA ED 40-100 cm/sec, ICA/CCA ratio 2-4 >70%: ICA PS >230 cm/sec, ICA ED >100 cm/sec, ICA/CCA ratio >4 Report Dictated on --- Final --- Dictating Physician: MD NELSON JEFFREY Signed Date and Time: 07/20/2021 6:51 pm Signed by: MD NELSON JEFFREY Transcribed Date and Time: 07/20/2021 6:52 [facility] Work Phone: [facility] Work Phone: XR CHEST (2 VW)Ordered By: Doug Costa on 07-20-2021 [id number] Radiology ACCESSION EXAM DATE/TIME PROCEDURE ORDERING PROVIDER [id number] 07/20/2021 08:49 EDT CR Chest PA & LAT MD COSTA DIANA CPT code 37449 Reason For Exam (CR Chest PA & LAT) Chronic cough Report CHEST: CLINICAL INDICATION: Chronic cough TECHNIQUE: PA and Lateral COMPARISON: None FINDINGS: No focal consolidation or pulmonary edema. No pleural effusions or pneumothorax. The heart demonstrates normal size. Calcification of the thoracic aorta is noted. The osseous structures are unremarkable. IMPRESSION: No focal consolidation or pulmonary edema. Report Dictated on --- Final --- Dictating Physician: MD ALAN KEVIN Signed Date and Time: 07/20/2021 1:27 pm Signed by: MD ALAN KEVIN Transcribed Date and Time: 07/20/2021 1:28 [facility] Work Phone: [facility], [facility] Incoming Radiology Results From [facility] - 07/20/2021 1:28 PM EDT Patient Name: [id number] Diagnostic Radiology ACCESSION EXAM DATE/TIME PROCEDURE ORDERING PROVIDER [id number] 07/20/2021 08:49 EDT CR Chest PA & LAT MD COSTA DIANA CPT code 64102 Reason For Exam (CR Chest PA & LAT) Chronic cough Report CHEST: CLINICAL INDICATION: Chronic cough TECHNIQUE: PA and Lateral COMPARISON: None FINDINGS: No focal consolidation or pulmonary edema. No pleural effusions or pneumothorax. The heart demonstrates normal size. Calcification of the thoracic aorta is noted. The osseous structures are unremarkable. IMPRESSION: No focal consolidation or pulmonary edema. Report Dictated on --- Final --- Dictating Physician: MD ALAN KEVIN Signed Date and Time: 07/20/2021 1:27 pm Signed by: MD ALAN KEVIN Transcribed Date and Time: 07/20/2021 1:28 [facility] Work Phone: [phone] [facility] Work Phone: [phone] Comprehensive Metabolic Pane lOrdered By: hSawanda Costa on 05-17-2021 Albumin [Mass/Vol] 4.1 g/dL 3.5 - 5.0 g/dL [facility] Work Phone: [phone] ALP (Bld) [Catalytic activity/Vol] 69 U/L 38 - 126 U/L [facility] Work Phone: [phone] ALT [Catalytic activity/Vol] 16 U/L 0 - 49 U/L [facility] Work Phone: [phone] Comment on above: The ALT test is perf ormed by an updated assay method. Please note that the reference intervals have been changed and are now sex specific. Anion gap [Moles/Vol] 5 mmol/L 3 - 13 mmol/L [facility] Work Phone: [phone] AST [Catalytic activity/Vol] 25 U/L 15 - 46 U/L [facility] Work Phone: [phone] Bilirubin [Mass/Vol] 0.6 mg/dL 0.2 - 1 .3 mg/dL [facility] Work Phone: [phone] Calcium [Mass/Vol] 9.8 mg/dL 8.4 - 10. 4 mg/dL [facility] Work Phone: [phone] Chloride [Moles/Vol] 104 mmol/L 98 - 10 7 mmol/L [facility] Work Phone: [phone] CO2 [Moles/Vol] 30 mmol/L 22 - 30 mmol/L [facility] Work Phone: [phone] Creatinine [Mass/Vol] 0.83 mg/dL 0.52 - 1.25 mg/dL [facility] Work Phone: [phone] EGFR IF NonAfrican [place] 89.3 mL/min >60 [facility] Work Phone: [phone] Comment on above: KDIGO guidelines pro vide the following GFR categories: Stage GFR(ml/min/1.73 m2) Terms G1 >=90 Normal or high G2 60-89 Mildly decreased* G3a 45-59 Mildly to moderately decreased G3b 30-44 Moderately to severely decreased G4 15-29 Severely decreased G5 <15 Kidney failure *Relative to young adult level. In the absence of evidence of kidney damage, neither GFR category G1 nor G2 fulfill the criteria for CKD. The CKD-EPI equation is validated in individuals 18 years of age and older. Currently the best equation for estimating glomerular filtration rate (GFR) from serum creatinine in children is the Bedside Chavez equation. It is less accurate in patients with extremes of muscle mass, restriction of dietary protein, ingestion of creatine, extra-renal metabolism of creatinine, or treatment with medications that affect renal tubular creatinine secretion. Free PSA/Total PSA [Mass fraction] 7.1 g/dL 6.3 - 8.2 g/dL [employer] Work Phone: GFR/1.73 sq M.predicted among blacks MDRD (S/P/Bld) [Vol rate/Area] mL/min/{1.73_m2} >60 mL/min [facility] Work Phone: Glucose [Mass/Vol] 89 mg/dL 70 - 100 mg/dL [facility] Work Phone: Potassium [Moles/Vol] 3.7 mmol/L 3.5 - 5.1 mmol/L [facility] Work Phone: Sodium [Moles/Vol] 138 mmol/L 135 - 145 mmol/L [facility] Work Phone: Urea nitrogen (BldV) [Mass/Vol] 14 mg/dL 7 - 20 mg/dL [facility] Work Phone: Lipid PanelOrdered By: Shawanda Costa on 05-17-2021 Cholesterol [Mass/Vol] 170 mg/dL <200 [facility] Work Phone: Cholesterol in HDL [Mass/Vol] 42 mg/dL 40 - 60 mg/dL [facility] Work Phone: Cholesterol in LDL [Mass/Vol] 112 mg/dL Abnormal <100 [facility] Work Phone: Cholesterol.total/Choles terol in HDL [Mass ratio] 4 {ratio} [facility] Work Phone: Comment on above: Ref Range: < 3 Low Risk for CHD 3-6 Mod Risk for CHD > 6 High Risk for CHD Interpretation and review of laboratory results Abnormal [facility] Work Phone: [phone] Triglyceride [Mass/Vol] 79 mg/dL <150 [facility] Work Phone: [phone] Panel InformationOrdered By: Shawanda Costa on 05-17-2021 [facility] by [facility], [address] , [place], [place] [id number] [place] [address] Work Phone: [phone] [facility] Work Phone: [phone] PSA, Prostatic Specific Anti genOrdered By: Shawanda Costa on 05-17-2021 Prostatic Specific Ag 2.232 ng/mL <4.000 [facility] Work Phone: [phone] Comment on above: Testing performed on the [employer] using an immunometric methodology. Results obtained by different methods should not be used interchangeably. Test Performed by [facility], [address] , [place] [id number] [place] [address] Work Phone: [phone] [facility] Work Phone: [phone] Comprehensive Metabolic Pane angel 08-31-2020 Albumin [Mass/Vol] 4.5 g/dL 3.5 - 5 g/dL [place] ALP [Catalytic activity/Vol] 81 U/L 38 - 126 U/L [place] ALT [Catalytic activity/Vol] 27 U/L 0 - 49 U/L [place] Comment on above: The ALT test is perf ormed by an updated assay method. Please note that the reference intervals have been changed and are now sex specific. Anion gap [Moles/Vol] 6 mmol/L [place], [place] AST [Catalytic activity/Vol] 34 U/L 15 - 46 U/L [place] Bilirubin Ql (U) 0.7 mg/dL 0.2 - 1.3 mg/dL [place] Calcium [Mass/Vol] 9.7 mg/dL 8.4 - 10. 4 mg/dL [place] Chloride [Moles/Vol] 104 mmol/L 98 - 10 7 mmol/L [place] CO2 [Moles/Vol] 28 mmol/L 22 - 30 mmol/L [place] Creatinine [Mass/Vol] 1.03 mg/dL 0.52 - 1.25 mg/dL [place] EGFR IF NonAfrican [place] 73.7 mL/min >60 [place] Comment on above: KDIGO guidelines pro vide the following GFR categories: Stage GFR(ml/min/1.73 m2) Terms G1 >=90 Normal or high G2 60-89 Mildly decreased* G3a 45-59 Mildly to moderately decreased G3b 30-44 Moderately to severely decreased G4 15-29 Severely decreased G5 <15 Kidney failure *Relative to young adult level. In the absence of evidence of kidney damage, neither GFR category G1 nor G2 fulfill the criteria for CKD. The CKD-EPI equation is validated in individuals 18 years of age and older. Currently the best equation for estimating glomerular filtration rate (GFR) from serum creatinine in children is the Bedside Chavez equation. It is less accurate in patients with extremes of muscle mass, restriction of dietary protein, ingestion of creatine, extra-renal metabolism of creatinine, or treatment with medications that affect renal tubular creatinine secretion. GFR/1.73 sq M predicted among blacks MDRD (S/P/Bld) [Vol rate/Area] 85.4 mL/min/{1.73_m2} >60 [place] Glucose [Mass/Vol] 99 mg/dL 70 - 100 mg/dL [place] Potassium [Moles/Vol] 3.9 mmol/L 3.5 - 5.1 mmol/L [place] Protein [Mass/Vol] 7.7 g/dL 6.3 - 8.2 g/dL [place] Sodium [Moles/Vol] 138 mmol/L 135 - 145 mmol/L [place] Urea nitrogen [Mass/Vol] 15 mg/dL 7 - 20 mg/dL [place] Test Performed by [facility], [facility] [address] , [address] Abdomen Pelvis W Contrast on 08-28-2020 Patient Name: NERY RODRIGUEZ ---CT--- Exam Date/Time 08/28/2020 13:34:[address] Abdomen/Pelvis w/ IV Contrast (IV Onl Ordering Physician JONNA PORTER, FAB WHITAKER Accession Number [id number] CPT4 Codes 02737 (CT Abdomen/Pelvis w/ IV Contrast (IV Onl), Q9967 (CT ISOVUE 370MG/ML&[id number]& ML&1) Reason For Exam LIVER CYSTS Report CLINICAL INFORMATION: 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 CT ABDOMEN AND PELVIS WITH INTRAVENOUS CONTRAST: Contrast: Isovue-370, [address] ABDOMEN: Volume acquisition CT images are obtained from diaphragm to iliac crests following oral and intravenous contrast with axial, coronal and sagittal 2- D reconstructions. Correlation is made with the abdominal ultrasound examination of 07/08/2020. Images through the upper abdomen which included lower chest demonstrate mild patchy irregular parenchymal density in the left lower lobe most likely mild scarring or atelectasis. No other significant abnormal pleural or parenchymal densities are seen in the included lower hemithoraces. The liver is unremarkable in size, configuration and density without definite fat replacement. There are multiple round well-defined hypodense lesions scattered throughout the liver many of which are too small to characterize but are most likely small cysts. The largest lesion measures 7.2 x 6.2 cm in the anteromedial aspect of the right lobe the liver and demonstrates homogeneous fluid density consistent with a large cyst. No solid mass or intrahepatic biliary dilatation is seen. There is an elongated gallbladder without visible abnormality. The spleen, pancreas and kidneys are unremarkable in size, configuration and density except for a partially exophytic 5.4 x 4.9 cm posterior mid to lower pole right renal cortical cyst. There is no hydronephrosis. There is no adrenal gland mass or enlargement. No ascites or retroperitoneal lymphadenopathy is seen. No focal mass, fluid collection or inflammatory changes are identified. CT PELVIS: Volume acquisition CT images were obtained from the iliac crests to the symphysis pubis following oral and intravenous contrast with axial, coronal and sagittal 2-D reconstructions. There is a well distended unopacified urinary bladder without calcified calculus or other visible abnormality. The prostate is enlarged indenting the floor the urinary bladder. No focal mass or fluid collection is seen. There is no iliac or inguinal lymphadenopathy. No ascites or inflammatory changes are identified. IMPRESSION: 1. 7.2 cm cyst in the anteromedial aspect of the right lobe of the liver. 2. Multiple additional round well-defined hypodense lesions scattered throughout the liver consistent with multiple small cysts. Several are too small to characterize but are most likely small cysts. 3. No definite evidence of enlargement or diffuse fat replacement of the liver. 4. No evidence of mass, lymphadenopathy or inflammatory process. 5. Mildly enlarged prostate indenting the floor the urinary bladder. Report Dictated on --- Final --- Dictating Physician: MD SALTER HARLAN Signed Date and Time: 08/28/2020 4:34 pm Signed by: MD SALTER HARLAN Transcribed Date and Time: 08/28/2020 4:35 [facility], [facility] Incoming Radiology Results From [facility] - 08/28/2020 4:36 PM EST Patient Name: NERY RODRIGUEZ ---CT--- Exam Date/Time 08/28/2020 13:34:[address] Abdomen/Pelvis w/ IV Contrast (IV Onl Ordering Physician JONNA PORTER, FAB WHITAKER Accession Number [id number] CPT4 Codes 12040 (CT Abdomen/Pelvis w/ IV Contrast (IV Onl), Q9967 (CT ISOVUE 370MG/ML&[id number]& ML&1) Reason For Exam LIVER CYSTS Report CLINICAL INFORMATION: 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 CT ABDOMEN AND PELVIS WITH INTRAVENOUS CONTRAST: Contrast: Isovue-370, [address] ABDOMEN: Volume acquisition CT images are obtained from diaphragm to iliac crests following oral and intravenous contrast with axial, coronal and sagittal 2- D reconstructions. Correlation is made with the abdominal ultrasound examination of 07/08/2020. Images through the upper abdomen which included lower chest demonstrate mild patchy irregular parenchymal density in the left lower lobe most likely mild scarring or atelectasis. No other significant abnormal pleural or parenchymal densities are seen in the included lower hemithoraces. The liver is unremarkable in size, configuration and density without definite fat replacement. There are multiple round well-defined hypodense lesions scattered throughout the liver many of which are too small to characterize but are most likely small cysts. The largest lesion measures 7.2 x 6.2 cm in the anteromedial aspect of the right lobe the liver and demonstrates homogeneous fluid density consistent with a large cyst. No solid mass or intrahepatic biliary dilatation is seen. There is an elongated gallbladder without visible abnormality. The spleen, pancreas and kidneys are unremarkable in size, configuration and density except for a partially exophytic 5.4 x 4.9 cm posterior mid to lower pole right renal cortical cyst. There is no hydronephrosis. There is no adrenal gland mass or enlargement. No ascites or retroperitoneal lymphadenopathy is seen. No focal mass, fluid collection or inflammatory changes are identified. CT PELVIS: Volume acquisition CT images were obtained from the iliac crests to the symphysis pubis following oral and intravenous contrast with axial, coronal and sagittal 2-D reconstructions. There is a well distended unopacified urinary bladder without calcified calculus or other visible abnormality. The prostate is enlarged indenting the floor the urinary bladder. No focal mass or fluid collection is seen. There is no iliac or inguinal lymphadenopathy. No ascites or inflammatory changes are identified. IMPRESSION: 1. 7.2 cm cyst in the anteromedial aspect of the right lobe of the liver. 2. Multiple additional round well-defined hypodense lesions scattered throughout the liver consistent with multiple small cysts. Several are too small to characterize but are most likely small cysts. 3. No definite evidence of enlargement or diffuse fat replacement of the liver. 4. No evidence of mass, lymphadenopathy or inflammatory process. 5. Mildly enlarged prostate indenting the floor the urinary bladder. Report Dictated on --- Final --- Dictating Physician: MD SALTER HARLAN Signed Date and Time: 08/28/2020 4:34 pm Signed by: MD SALTER HARLAN Transcribed Date and Time: 08/28/2020 4:35 [facility] [place] Creatinine, Serumon 08-28-20 Creatinine [Mass/Vol] 1 mg/dL 0.52 - 1.25 mg/dL [place], [place] EGFR IF NonAfrican [place] 76.4 mL/min >60 [place], [place] Comment on above: KDIGO guidelines pro vide the following GFR categories: Stage GFR(ml/min/1.73 m2) Terms G1 >=90 Normal or high G2 60-89 Mildly decreased* G3a 45-59 Mildly to moderately decreased G3b 30-44 Moderately to severely decreased G4 15-29 Severely decreased G5 <15 Kidney failure *Relative to young adult level. In the absence of evidence of kidney damage, neither GFR category G1 nor G2 fulfill the criteria for CKD. The CKD-EPI equation is validated in individuals 18 years of age and older. Currently the best equation for estimating glomerular filtration rate (GFR) from serum creatinine in children is the Bedside Chavez equation. It is less accurate in patients with extremes of muscle mass, restriction of dietary protein, ingestion of creatine, extra-renal metabolism of creatinine, or treatment with medications that affect renal tubular creatinine secretion. GFR/1.73 sq M predicted among blacks MDRD (S/P/Bld) [Vol rate/Area] 88.5 mL/min/{1.73_m2} >60 [place] Test Performed by [facility], [facility] [address]. [address] Ferritinon 08-25-2020 Ferritin [Mass/Vol] 96 ng/mL 18 - 464 ng/mL [place], [place] Test Performed by [facility], [address] , [address] Hepatitis B Surface Antibody on 08-25-2020 HBV surface Ab (S) [Titer] <8.0 m[IU]/mL [place], [place] Comment on above: Interpretation: <8.0 Non-Reactive 8.0-11.9 Equivocal >= 12.0 Ab Detected Hepatitis B Surface Antigeno n 08-25-2020 Hepatitis B Surface Ag NOT DETECTED Not-D etecte d NA [place] Hepatitis C Antibodyon 08-25 Hepatitis C Ab NOT DETECTED Not-Detecte d NA [place] Comment on above: Patients with DETECT ED Hepatitis C Ab results should have a new specimen submitted for supplemental testing with a Hepatitis C Quantitative RNA assay (viral load), if clinically indicated. Iron and TIBCon 08-25-2020 Iron [Mass/Vol] 117 ug/dL 49 - 181 ug/dL [place], [place] Sat 37 % 15 - 50 % [place] TIBC 314 ug/dL 261 - 497 ug/dL [place] Test Performed by [facility], [address] , [address] Otheron 08-25-2020 Test Performed by [facility], [address] [place] [id number] [place] [address] Protime-INRon 08-25-2020 INR Coag (PPP) [Relative time] 1.0 {INR} [place], [place] Comment on above: Recommended Anticoag ulant Therapy: SEE BELOW ----- INR of 2.0 - 3.0 : - Prophylaxis of Venous Thrombosis (high-risk surgery) - Treatment of Venous Thrombosis - Treatment of Pulmonary Embolism (Includes tissue heart valves, Acute Myocardial Infarction to prevent systemic embolism, Valvular Heart Disease, and Atrial Fibrillation) ----- INR of 2.5 - 3.5 : - Mechanical Prosthetic Valves (high risk) - If oral anticoagulant therapy is used to prevent Myocardial Infarction PT Coag (PPP) [Time] 10.8 s 9 - 12 s [place], [place] Comment on above: . Test Performed by [facility], [address] , [address] TSH without Reflexon 020 TSH Qn 1.910 u[IU]/mL 0.465 - 4.68 u[IU]/mL [place] Test Performed by [facility], [facility] [address]. , [address] US ABDOMEN COMPLETEon 2019 Patient Name: NERY RODRIGUEZ ---Ultrasound--- Exam Date/Time 07/08/2020 08:35:00 EDT Exam US Abdomen Complete Ordering Physician MD JULISSA, SHAWANDA Accession Number [id number] CPT4 Codes 13928 () Reason For Exam Other specified diseases of liver Report CLINICAL INFORMATION: Liver cysts ULTRASOUND OF ABDOMEN: COMPARISON: None provided FINDINGS: There is a nondistended gallbladder without evidence of stones or wall thickening. No fluid is seen around the gallbladder. The common bile duct measures 3 mm which is within normal limits. The liver is enlarged and shows diffusely increased echotexture throughout. Multiple hepatic cysts are present. The largest cyst within the left lobe measures 1.5 x 1.4 x 1.3 cm and is septated. The largest cyst within the right lobe measures 6.9 x 7.2 x 7.1 cm. The pancreas is not visualized due to patient habitus and overlying bowel gas. There is no ascites. The right kidney measures 12.1 x 6.1 x 5.1 cm and contains a 5.8 cm cyst laterally. The left kidney measures 13.7 x 6.8 x 5.3 cm. The spleen is upper limit of normal in size, measuring up to 13.1 cm in greatest dimension. The abdominal aorta and inferior vena cava are not adequately visualized due to bowel gas and patient habitus. IMPRESSION: Hepatomegaly. Fatty hepatic infiltration. Multiple hepatic cysts. Right renal 5.8 cm cyst. Report Dictated on Workstation: [employer] --- Final --- Dictating Physician: MD REILLY BRIAN Signed Date and Time: 07/08/2020 11:28 am Signed by: MD REILLY BRIAN Transcribed Date and Time: 07/08/2020 11:29 [place], [place], [facility] Incoming Radiology Results From [facility] - 07/08/2020 11:30 AM EDT Patient Name: NERY RODRIGUEZ ---Ultrasound--- Exam Date/Time 07/08/2020 08:35:00 EDT Exam US Abdomen Complete Ordering Physician MD COSTA DIANA Accession Number [id number] CPT4 Codes 72493 () Reason For Exam Other specified diseases of liver Report CLINICAL INFORMATION: Liver cysts ULTRASOUND OF ABDOMEN: COMPARISON: None provided FINDINGS: There is a nondistended gallbladder without evidence of stones or wall thickening. No fluid is seen around the gallbladder. The common bile duct measures 3 mm which is within normal limits. The liver is enlarged and shows diffusely increased echotexture throughout. Multiple hepatic cysts are present. The largest cyst within the left lobe measures 1.5 x 1.4 x 1.3 cm and is septated. The largest cyst within the right lobe measures 6.9 x 7.2 x 7.1 cm. The pancreas is not visualized due to patient habitus and overlying bowel gas. There is no ascites. The right kidney measures 12.1 x 6.1 x 5.1 cm and contains a 5.8 cm cyst laterally. The left kidney measures 13.7 x 6.8 x 5.3 cm. The spleen is upper limit of normal in size, measuring up to 13.1 cm in greatest dimension. The abdominal aorta and inferior vena cava are not adequately visualized due to bowel gas and patient habitus. IMPRESSION: Hepatomegaly. Fatty hepatic infiltration. Multiple hepatic cysts. Right renal 5.8 cm cyst. Report Dictated on Workstation: [employer] --- Final --- Dictating Physician: MD REILLY BRIAN Signed Date and Time: 07/08/2020 11:28 am Signed by: MD REILLY BRIAN Transcribed Date and Time: 07/08/2020 11:29 [facility] AAA SCREENINGon 0 Patient Name: NERY RODRIGUEZ ---Ultrasound--- Exam Date/Time 06/29/2020 08:15:00 EDT Exam VL Aorta Iliac Duplex Scr for Medicare Ordering Physician MD COSTA DIANA Accession Number [id number] CPT4 Codes 50007 () Reason For Exam Encounter for screening for cardiovascular disorders Report RETROPERITONEAL ULTRASOUND - LIMITED TO AORTA: EXAM DATE AND TIME: 06/29/2020 8:15 AM EDT INDICATION: 69 years Male with abdominal aortic aneurysm screening and history of smoking COMPARISON: None TECHNIQUE: Ultrasonographic evaluation of the aorta and iliac arteries, including color flow and spectral Doppler imaging. FINDINGS: No significant aortic calcified or noncalcified plaque is identified. Measurements: Upper aorta: 2.8 x 2.8 cm Mid aorta: 2.3 x 1.7 cm Lower aorta: 1.7 x 1.8 cm Right iliac: 1.1 x 1.1 cm Left iliac: 1 x 1.0 cm Other: Multiple incidental cysts are present in the visualized portions of the liver, one of which measures 1.6 x 1.4 cm and has thin internal septations. The largest cyst measures 7.8 cm but appears simple. The liver is diffusely echogenic. IMPRESSION: 1. 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 Recommend follow-up imaging as outlined below. 2. Echogenic liver suggesting hepatic steatosis is enhancement only noted, as well as multiple liver cysts, one of which containing thin internal septations. Consider dedicated imaging of the liver. Recommended interval for initial follow-up imaging of ectatic aortas and aneurysms: Aida et al. JACR. 2013 Diameter Imaging interval 2.5-2.9 cm 5 y 3.0-3.4 cm 3 y 3.5-3.9 cm 2 y 4.0-4.4 cm 1 y 4.5-4.9 cm 6 mo 5.0-5.5 cm 3-6 mo Report Dictated on Workstation: [id number] --- Final --- Dictating Physician: MD MONZON NICHOLAS Signed Date and Time: 06/29/2020 8:56 am Signed by: MD MONZON NICHOLAS Transcribed Date and Time: 06/29/2020 8:57 [facility] [place] [facility], [facility] Incoming Cardiology Results From [facility] - 06/29/2020 8:57 AM EDT Patient Name: NERY RODRIGUEZ ---Ultrasound--- Exam Date/Time 06/29/2020 08:15:00 EDT Exam VL Aorta Iliac Duplex Scr for Medicare Ordering Physician MD COSTA DIANA Accession Number [id number] CPT4 Codes 87595 () Reason For Exam Encounter for screening for cardiovascular disorders Report RETROPERITONEAL ULTRASOUND - LIMITED TO AORTA: EXAM DATE AND TIME: 06/29/2020 8:15 AM EDT INDICATION: 69 years Male with abdominal aortic aneurysm screening and history of smoking COMPARISON: None TECHNIQUE: Ultrasonographic evaluation of the aorta and iliac arteries, including color flow and spectral Doppler imaging. FINDINGS: No significant aortic calcified or noncalcified plaque is identified. Measurements: Upper aorta: 2.8 x 2.8 cm Mid aorta: 2.3 x 1.7 cm Lower aorta: 1.7 x 1.8 cm Right iliac: 1.1 x 1.1 cm Left iliac: 1 x 1.0 cm Other: Multiple incidental cysts are present in the visualized portions of the liver, one of which measures 1.6 x 1.4 cm and has thin internal septations. The largest cyst measures 7.8 cm but appears simple. The liver is diffusely echogenic. IMPRESSION: 1. 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 Recommend follow-up imaging as outlined below. 2. Echogenic liver suggesting hepatic steatosis is enhancement only noted, as well as multiple liver cysts, one of which containing thin internal septations. Consider dedicated imaging of the liver. Recommended interval for initial follow-up imaging of ectatic aortas and aneurysms: steff Parra. JACR. 2013 Diameter Imaging interval 2.5-2.9 cm 5 y 3.0-3.4 cm 3 y 3.5-3.9 cm 2 y 4.0-4.4 cm 1 y 4.5-4.9 cm 6 mo 5.0-5.5 cm 3-6 mo Report Dictated on Workstation: [id number] --- Final --- Dictating Physician: MD MONZON NICHOLAS Signed Date and Time: 06/29/2020 8:56 am Signed by: MD MONZON NICHOLAS Transcribed Date and Time: 06/29/2020 8:57 [place], [place] Vital Signs Date Time Vital Sign Value Performing Clinician [facility] 02-28-2025 08:58-0400 Diastolic blood pressure 75 mm[Hg] Mark Yeh MD Work Phone: [employer] 02-28-2025 08:58-0400 Heart rate 65 /min Mark Yeh MD Work Phone: [facility] [employer] 02-28-2025 08:58-0400 Respiratory rate 16 /min Mark Yeh MD Work Phone: [facility] 02-28-2025 08:58-0400 Systolic blood pressure 139 mm[Hg] Mark Yeh MD Work Phone: [employer] [facility] 02-28-2025 08:55-0400 SaO2% (BldA) [Mass fraction] 100 % Mark Yeh MD Work Phone: [employer] [facility] 02-28-2025 06:54-0400 Body height 185.4 cm Mark Yeh MD Work Phone: [employer] [facility] 02-28-2025 06:54-0400 Body mass index (BMI) [Ratio] 31 kg/m2 Mark Yeh MD Work Phone: [facility] 02-28-2025 06:54-0400 Body temperature 96.91 [degF] Mark Yeh MD Work Phone: [facility] 02-28-2025 06:54-0400 Body weight 106.59 kg Mark Yeh MD Work Phone: [facility] 02-24-2025 10:56-0400 Body height 185.4 cm Shawanda Costa MD Work Phone: [facility] 02-24-2025 10:56-0400 Body mass index (BMI) [Ratio] 31 kg/m2 Shawanda Costa MD Work Phone: [facility] 02-24-2025 10:56-0400 Body temperature 97.3 [degF] Shawanda Costa MD Work Phone: [facility] 02-24-2025 10:56-0400 Body weight 106.59 kg Shawanda Costa MD Work Phone: [facility] 02-24-2025 10:56-0400 Diastolic blood pressure 70 mm[Hg] Shawanda Costa MD Work Phone: [facility] 02-24-2025 10:56-0400 Heart rate 71 /min Shawanda Costa MD Work Phone: [facility] 02-24-2025 10:56-0400 SaO2% (BldA) [Mass fraction] 97 % Shawanda Costa MD Work Phone: [facility] 02-24-2025 10:56-0400 Systolic blood pressure 116 mm[Hg] Shawanda oCsta MD Work Phone: [facility] 01-20-2025 08:04-0400 Body height 185.4 cm [facility] FINISHING MACHINE TENDER [employer] Work Phone: [facility] 01-20-2025 08:04-0400 Body mass index (BMI) [Ratio] 30.85 kg/m2 Mohan Forester FINISHING MACHINE TENDER - MEMORIAL COUNSELOR Work Phone: [facility] 01-20-2025 08:04-0400 Body temperature 98.1 [degF] Mohan Haskins FINISHING MACHINE TENDER - MEMORIAL COUNSELOR Work Phone: [facility] 01-20-2025 08:04-0400 Body weight 106.05 kg Mohan Haskins FINISHING MACHINE TENDER - MEMORIAL COUNSELOR Work Phone: [facility] 01-20-2025 08:04-0400 Diastolic blood pressure 77 mm[Hg] Mohan Haskins FINISHING MACHINE TENDER - MEMORIAL COUNSELOR Work Phone: [facility] 01-20-2025 08:04-0400 Heart rate 60 /min Mohan Haksins FINISHING MACHINE TENDER - MEMORIAL COUNSELOR Work Phone: [facility] 01-20-2025 08:04-0400 Systolic blood pressure 120 mm[Hg] Mohan Haskins FINISHING MACHINE TENDER - MEMORIAL COUNSELOR Work Phone: [facility] 11-11-2024 13:02-0500 Body height 185.4 cm Breanna Tolliver MD Work Phone: [facility] 11-11-2024 13:02-0500 Body mass index (BMI) [Ratio] 29.87 kg/m2 Breanna Tolliver MD Work Phone: [facility] 11-11-2024 13:02-0500 Body weight 102.69 kg Breanna Tolliver MD Work Phone: [facility] 11-11-2024 13:02-0500 Diastolic blood pressure 73 mm[Hg] Breanna Tolliver MD Work Phone: [facility] 11-11-2024 13:02-0500 Heart rate 73 /min Breanna Tolliver MD Work Phone: [facility] 11-11-2024 13:02-0500 Systolic blood pressure 114 mm[Hg] Breanna Tolliver MD Work Phone: [facility] 09-16-2024 14:58-0500 Body height 185.4 cm Angelica Velázquez MD Work Phone: [facility] 09-16-2024 14:58-0500 Body mass index (BMI) [Ratio] 29.29 kg/m2 Angelica Velázquez MD Work Phone: [facility] 09-16-2024 14:58-0500 Body weight 100.7 kg Angelica Velázquez MD Work Phone: [facility] 09-09-2024 13:48-0500 Body height 185.4 cm Tavo Wick MD Work Phone: [facility] 09-09-2024 13:48-0500 Body mass index (BMI) [Ratio] 29.39 kg/m2 Tavo Wick MD Work Phone: [facility] 09-09-2024 13:48-0500 Body temperature 97 [degF] Tavo Wick MD Work Phone: [facility] 09-09-2024 13:48-0500 Body weight 101.06 kg Tavo Wick MD Work Phone: [facility] 09-09-2024 13:48-0500 Diastolic blood pressure 56 mm[Hg] Tavo Wick MD Work Phone: [facility] 09-09-2024 13:48-0500 Heart rate 76 /min Tavo Wick MD Work Phone: [facility] 09-09-2024 13:48-0500 Systolic blood pressure 103 mm[Hg] Tavo Wick MD Work Phone: [facility] 09-02-2024 10:07-0500 Body height 185.4 cm Angelica Velázquez MD Work Phone: [facility] 09-02-2024 10:07-0500 Body mass index (BMI) [Ratio] 29.24 kg/m2 Angelica Velázquez MD Work Phone: [facility] 09-02-2024 10:07-0500 Body weight 100.52 kg Angelica Velázquez MD Work Phone: [facility] 09-02-2024 10:07-0500 Diastolic blood pressure 70 mm[Hg] Angelica Velázquez MD Work Phone: [place] [id number] 10:07-0500 Heart rate 59 /min Angelica Velázquez MD Work Phone: [facility] 09-02-2024 10:07-0500 SaO2% (BldA) [Mass fraction] 95 % Angelica Velázquez MD Work Phone: [facility] 09-02-2024 10:07-0500 Systolic blood pressure 110 mm[Hg] Angelica Velázquez MD Work Phone: [facility] 08-27-2024 11:19-0500 Body height 185.4 cm Shawanda Costa MD Work Phone: [facility] 08-27-2024 11:19-0500 Body mass index (BMI) [Ratio] 29.03 kg/m2 Shawanda Costa MD Work Phone: [facility] 08-27-2024 11:19-0500 Body temperature 98.6 [degF] Shawanda Costa MD Work Phone: [facility] 08-27-2024 11:19-0500 Body weight 99.79 kg Shawanda Costa MD Work Phone: [facility] 08-27-2024 11:19-0500 Diastolic blood pressure 66 mm[Hg] Shawanda Costa MD Work Phone: [facility] 08-27-2024 11:19-0500 Heart rate 79 /min Shawanda Costa MD Work Phone: [facility] 08-27-2024 11:19-0500 SaO2% (BldA) [Mass fraction] 97 % Shawanda Costa MD Work Phone: [facility] 08-27-2024 11:19-0500 Systolic blood pressure 132 mm[Hg] Shawanda Costa MD Work Phone: [facility] 08-22-2024 10:37-0500 Body height 185.4 cm Conner Quintero MD Work Phone: [facility] 08-22-2024 10:37-0500 Body mass index (BMI) [Ratio] 29.55 kg/m2 Conner Quintero MD Work Phone: [facility] 08-22-2024 10:37-0500 Body weight 101.61 kg Conner Quintero MD Work Phone: [facility] 08-22-2024 10:37-0500 Diastolic blood pressure 77 mm[Hg] Conner Quintero MD Work Phone: [facility] 08-22-2024 10:37-0500 Heart rate 67 /min Conner Quintero MD Work Phone: [facility] 08-22-2024 10:37-0500 Systolic blood pressure 118 mm[Hg] Conner Quintero MD Work Phone: [facility] 07-08-2024 11:14-0400 Body height 185.4 cm Antonietta Cervantes CNP Work Phone: [facility] 07-08-2024 11:14-0400 Body mass index (BMI) [Ratio] 29.55 kg/m2 Antonietta Cervantes CNP Work Phone: [facility] 07-08-2024 11:14-0400 Body weight 101.61 kg Antonietta Cervantes CNP Work Phone: [facility] 07-08-2024 11:14-0400 Diastolic blood pressure 72 mm[Hg] Antonietta Cervantes CNP Work Phone: [facility] 07-08-2024 11:14-0400 Heart rate 69 /min Antonietta Cervantes CNP Work Phone: [facility] 07-08-2024 11:14-0400 SaO2% (BldA) [Mass fraction] 96 % Antonietta Cervantes CNP Work Phone: [facility] Comment on above: 07-08-2024 11:14-0400 Systolic blood pressure 126 mm[Hg] Antonietta Cervantes CNP Work Phone: [facility] 05-10-2024 13:20-0400 Body height 185.4 cm Breanna Tolliver MD Work Phone: [facility] 05-10-2024 13:20-0400 Body mass index (BMI) [Ratio] 29.82 kg/m2 Breanna Tolliver MD Work Phone: [facility] 05-10-2024 13:20-0400 Body weight 102.51 kg Breanna Tolliver MD Work Phone: [facility] 05-10-2024 13:20-0400 Diastolic blood pressure 72 mm[Hg] Breanna Tolliver MD Work Phone: [facility] 05-10-2024 13:20-0400 Heart rate 65 /min Breanna Tolliver MD Work Phone: [facility] 05-10-2024 13:20-0400 Systolic blood pressure 116 mm[Hg] Breanna Tolliver MD Work Phone: [facility] 04-30-2024 10:38-0400 Body height 185.4 cm Shawanda Costa MD Work Phone: [facility] 04-30-2024 10:38-0400 Body mass index (BMI) [Ratio] 29.55 kg/m2 Shawanda Costa MD Work Phone: [facility] 04-30-2024 10:38-0400 Body temperature 97.2 [degF] Shawanda Costa MD Work Phone: [facility] 04-30-2024 10:38-0400 Body weight 101.61 kg Shawanda Costa MD Work Phone: [facility] 04-30-2024 10:38-0400 Diastolic blood pressure 58 mm[Hg] Shawanda Costa MD Work Phone: [facility] 04-30-2024 10:38-0400 Heart rate 89 /min Shawanda Costa MD Work Phone: [facility] 04-30-2024 10:38-0400 SaO2% (BldA) [Mass fraction] 97 % Shawanda Costa MD Work Phone: [facility] 04-30-2024 10:38-0400 Systolic blood pressure 110 mm[Hg] Shawanda Costa MD Work Phone: [facility] 04-24-2024 14:25-0400 Diastolic blood pressure 79 mm[Hg] Conner Quintero MD Work Phone: [facility] 04-24-2024 14:25-0400 Heart rate 59 /min Conner Quintero MD Work Phone: [facility] 04-24-2024 14:25-0400 Systolic blood pressure 115 mm[Hg] Conner Quintero MD Work Phone: [facility] 04-19-2024 10:07-0400 Diastolic blood pressure 78 mm[Hg] Van Holcomb MD Work Phone: [facility] 04-19-2024 10:07-0400 Heart rate 67 /min Van Holcomb MD Work Phone: [employer] [facility] 04-19-2024 10:07-0400 Respiratory rate 14 /min Van Holcomb MD Work Phone: [facility] 04-19-2024 10:07-0400 SaO2% (BldA) [Mass fraction] 98 % Van Holcomb MD Work Phone: [facility] 04-19-2024 10:07-0400 Systolic blood pressure 138 mm[Hg] Van Holcomb MD Work Phone: [facility] 04-19-2024 08:24-0400 Body temperature 97.81 [degF] Van Holcomb MD Work Phone: [facility] 04-14-2024 03:39-0400 Diastolic blood pressure 82 mm[Hg] Brayan Leon MD Work Phone: [employer] [facility] 04-14-2024 03:39-0400 Heart rate 72 /min Brayan Leon MD Work Phone: [facility] 04-14-2024 03:39-0400 Respiratory rate 16 /min Brayan Leon MD Work Phone: [facility] 04-14-2024 03:39-0400 SaO2% (BldA) [Mass fraction] 100 % Brayan Leon MD Work Phone: [facility] 04-14-2024 03:39-0400 Systolic blood pressure 163 mm[Hg] Brayan Leon MD Work Phone: [facility] 04-13-2024 22:12-0400 Body temperature 97.81 [degF] Brayan Leon MD Work Phone: [facility] 04-13-2024 21:55-0400 Body height 185.4 cm Baryan Leon MD Work Phone: [facility] 04-13-2024 21:55-0400 Body mass index (BMI) [Ratio] 29.69 kg/m2 Brayan Leon MD Work Phone: [facility] 04-13-2024 21:55-0400 Body weight 102.06 kg Brayan Leon MD Work Phone: [facility] 04-09-2024 12:57-0400 Body temperature 98.71 [degF] Conner Quintero MD Work Phone: [facility] 04-09-2024 12:57-0400 Diastolic blood pressure 66 mm[Hg] Conner Quintero MD Work Phone: [facility] 04-09-2024 12:57-0400 Heart rate 54 /min Conner Quintero MD Work Phone: [facility] 04-09-2024 12:57-0400 Respiratory rate 16 /min Conner Quintero MD Work Phone: [facility] 04-09-2024 12:57-0400 SaO2% (BldA) [Mass fraction] 95 % Conner Quintero MD Work Phone: [facility] 04-09-2024 12:57-0400 Systolic blood pressure 128 mm[Hg] Conner Quintero MD Work Phone: [employer] [facility] 04-08-2024 12:41-0400 Body height 185.4 cm Conner Quintero MD Work Phone: [facility] 04-08-2024 12:41-0400 Body mass index (BMI) [Ratio] 29.03 kg/m2 Conner Quintero MD Work Phone: [facility] 04-08-2024 12:41-0400 Body weight 99.79 kg Conner Quintero MD Work Phone: [employer] [facility] 12-26-2023 14:00-0400 Body height 185.4 cm Shawanda Costa MD Work Phone: [facility] 12-26-2023 14:00-0400 Body mass index (BMI) [Ratio] 30.34 kg/m2 Shawanda Costa MD Work Phone: [facility] 12-26-2023 14:00-0400 Body temperature 99.1 [degF] Shawanda Costa MD Work Phone: [employer] [facility] 12-26-2023 14:00-0400 Body weight 104.33 kg Shawanda Costa MD Work Phone: [employer] [facility] 12-26-2023 14:00-0400 Diastolic blood pressure 74 mm[Hg] Shawanda Costa MD Work Phone: [facility] 12-26-2023 14:00-0400 Heart rate 94 /min Shawanda Costa MD Work Phone: [employer] [facility] 12-26-2023 14:00-0400 SaO2% (BldA) [Mass fraction] 96 % Shawanda Costa MD Work Phone: [facility] 12-26-2023 14:00-0400 Systolic blood pressure 126 mm[Hg] Shawanda Costa MD Work Phone: [facility] 12-25-2023 10:02-0400 Body height 185.4 cm Breanna Tolliver MD Work Phone: [facility] 12-25-2023 10:02-0400 Body mass index (BMI) [Ratio] 30.64 kg/m2 Breanna Tolliver MD Work Phone: [facility] 12-25-2023 10:02-0400 Body weight 105.33 kg Breanna Tolliver MD Work Phone: [facility] 12-25-2023 10:02-0400 Diastolic blood pressure 83 mm[Hg] Breanna Tolliver MD Work Phone: [facility] 12-25-2023 10:02-0400 Heart rate 67 /min Breanna Tolliver MD Work Phone: [facility] 12-25-2023 10:02-0400 Systolic blood pressure 161 mm[Hg] Breanna Tolliver MD Work Phone: [facility] 09-20-2023 11:49-0500 Body mass index (BMI) [Ratio] 32.78 kg/m2 Breanna Tolliver MD Work Phone: [facility] 09-20-2023 11:49-0500 Body weight 106.59 kg Breanna Tolliver MD Work Phone: [facility] 09-20-2023 11:49-0500 Diastolic blood pressure 82 mm[Hg] Breanna Tolliver MD Work Phone: [facility] 09-20-2023 11:49-0500 Heart rate 78 /min Breanna Tolliver MD Work Phone: [facility] 09-20-2023 11:49-0500 Systolic blood pressure 129 mm[Hg] Breanna Tolliver MD Work Phone: [facility] 08-29-2023 13:16-0500 Body height 180.3 cm Shawanda Costa MD Work Phone: [facility] 08-29-2023 13:16-0500 Body mass index (BMI) [Ratio] 31.8 kg/m2 Shawanda Costa MD Work Phone: [facility] 08-29-2023 13:16-0500 Body temperature 98.1 [degF] Shawanda Costa MD Work Phone: [facility] 08-29-2023 13:16-0500 Body weight 103.42 kg Shawanda Costa MD Work Phone: [facility] 08-29-2023 13:16-0500 Diastolic blood pressure 64 mm[Hg] Shawanda Costa MD Work Phone: [facility] 08-29-2023 13:16-0500 Heart rate 75 /min Shawanda Costa MD Work Phone: [facility] 08-29-2023 13:16-0500 SaO2% (BldA) [Mass fraction] 97 % Shawanda Costa MD Work Phone: [facility] 08-29-2023 13:16-0500 Systolic blood pressure 88 mm[Hg] Shawanda Costa MD Work Phone: [facility] 07-07-2023 10:58-0400 Body height 182.9 cm Shawanda Costa MD Work Phone: [facility] 07-07-2023 10:58-0400 Body mass index (BMI) [Ratio] 29.97 kg/m2 Shawanda Costa MD Work Phone: [facility] 07-07-2023 10:58-0400 Body weight 100.25 kg Shawanda Costa MD Work Phone: [facility] 07-07-2023 10:58-0400 Diastolic blood pressure 72 mm[Hg] Shawanda Costa MD Work Phone: [facility] 07-07-2023 10:58-0400 Heart rate 73 /min Shawanda Costa MD Work Phone: [facility] 07-07-2023 10:58-0400 SaO2% (BldA) [Mass fraction] 98 % Shawanda Costa MD Work Phone: [facility] 07-07-2023 10:58-0400 Systolic blood pressure 110 mm[Hg] Shawanda Costa MD Work Phone: [facility] 06-28-2023 13:33-0400 Body mass index (BMI) [Ratio] 31.05 kg/m2 Breanna Tolliver MD Work Phone: [facility] 06-28-2023 13:33-0400 Body weight 103.87 kg Breanna Tolliver MD Work Phone: [facility] 06-28-2023 13:33-0400 Diastolic blood pressure 77 mm[Hg] Breanna Tolliver MD Work Phone: [facility] 06-28-2023 13:33-0400 Heart rate 83 /min Breanna Tolliver MD Work Phone: [facility] 06-28-2023 13:33-0400 Systolic blood pressure 117 mm[Hg] Breanna Tolliver MD Work Phone: [facility] 05-04-2023 13:42-0400 Body height 182.9 cm Igor Subramanian MD Work Phone: [facility] 05-04-2023 13:42-0400 Body mass index (BMI) [Ratio] 30.24 kg/m2 Igor Subramanian MD Work Phone: [facility] 05-04-2023 13:42-0400 Body weight 101.15 kg Igor Subramanian MD Work Phone: [facility] 04-10-2023 12:58-0400 Body mass index (BMI) [Ratio] 29.62 kg/m2 Breanna Tolliver MD Work Phone: [facility] 04-10-2023 12:58-0400 Body weight 101.15 kg Breanna Tolliver MD Work Phone: [facility] 04-10-2023 12:58-0400 Diastolic blood pressure 82 mm[Hg] Breanna Tolliver MD Work Phone: [facility] 04-10-2023 12:58-0400 Heart rate 83 /min Breanna Tolliver MD Work Phone: [facility] 04-10-2023 12:58-0400 Systolic blood pressure 126 mm[Hg] Breanna Tolliver MD Work Phone: [facility] 04-04-2023 14:30-0400 Diastolic blood pressure 81 mm[Hg] Igor Subramanian MD Work Phone: [facility] 04-04-2023 14:30-0400 Heart rate 63 /min Igor Subramanian MD Work Phone: [facility] 04-04-2023 14:30-0400 Respiratory rate 16 /min Igor Subramanian MD Work Phone: [facility] 04-04-2023 14:30-0400 SaO2% (BldA) [Mass fraction] 100 % Igor Subramanian MD Work Phone: [facility] 04-04-2023 14:30-0400 Systolic blood pressure 163 mm[Hg] Igor Subramanian MD Work Phone: [facility] 04-04-2023 14:04-0400 Body temperature 97.39 [degF] Igor Subramanian MD Work Phone: [facility] 04-04-2023 09:47-0400 Body height 184.8 cm Igor Subramanian MD Work Phone: [facility] 04-04-2023 09:47-0400 Body mass index (BMI) [Ratio] 29.36 kg/m2 Igor Subramanian MD Work Phone: [facility] 04-04-2023 09:47-0400 Body weight 100.25 kg Igor Subramanian MD Work Phone: [facility] 03-14-2023 13:22-0400 Body height 182.9 cm Carmen Cervantes CNP Work Phone: [facility] 03-14-2023 13:22-0400 Body mass index (BMI) [Ratio] 30.19 kg/m2 Carmen Calderón FINISHING MACHINE TENDER - MEMORIAL COUNSELOR Work Phone: [facility] 03-14-2023 13:22-0400 Body weight 100.97 kg Carmen Calderón FINISHING MACHINE TENDER - MEMORIAL COUNSELOR Work Phone: [facility] 03-14-2023 13:22-0400 Diastolic blood pressure 78 mm[Hg] Carmen Calderón FINISHING MACHINE TENDER - MEMORIAL COUNSELOR Work Phone: [facility] 03-14-2023 13:22-0400 Heart rate 91 /min Carmen Calderón FINISHING MACHINE TENDER - MEMORIAL COUNSELOR Work Phone: [facility] 03-14-2023 13:22-0400 Respiratory rate 16 /min Carmen Calderón FINISHING MACHINE TENDER - MEMORIAL COUNSELOR Work Phone: [facility] 03-14-2023 13:22-0400 SaO2% (BldA) [Mass fraction] 96 % Carmen Calderón FINISHING MACHINE TENDER - MEMORIAL COUNSELOR Work Phone: [facility] 03-14-2023 13:22-0400 Systolic blood pressure 120 mm[Hg] Carmen Calderón FINISHING MACHINE TENDER - MEMORIAL COUNSELOR Work Phone: [facility] 02-14-2023 08:23-0400 Heart rate 56 /min Haresh Fournier MD Work Phone: [facility] 02-14-2023 03:16-0400 Body temperature 97.81 [degF] Haresh Fournier MD Work Phone: [facility] 02-14-2023 03:16-0400 Diastolic blood pressure 67 mm[Hg] Haresh Fournier MD Work Phone: [facility] 02-14-2023 03:16-0400 Respiratory rate 16 /min Haresh Fournier MD Work Phone: [facility] 02-14-2023 03:16-0400 SaO2% (BldA) [Mass fraction] 96 % Haresh Fournier MD Work Phone: [facility] 02-14-2023 03:16-0400 Systolic blood pressure 123 mm[Hg] Haresh Fournier MD Work Phone: [facility] 02-13-2023 16:32-0400 Body height 182.9 cm Haresh Fournier MD Work Phone: [facility] 02-13-2023 16:32-0400 Body mass index (BMI) [Ratio] 31.19 kg/m2 Haresh Fournier MD Work Phone: [facility] 02-13-2023 16:32-0400 Body weight 104.33 kg Haresh Fournier MD Work Phone: [facility] 01-24-2023 12:22-0400 Body height 185.4 cm Breanna Tolliver MD Work Phone: [facility] 01-24-2023 12:22-0400 Body mass index (BMI) [Ratio] 30.5 kg/m2 Breanna Tolliver MD Work Phone: [facility] [facility] [employer] 01-24-2023 12:22-0400 Body weight 104.87 kg Breanna Tolliver MD Work Phone: [facility] [employer] 01-24-2023 12:22-0400 Diastolic blood pressure 72 mm[Hg] Breanna Tolliver MD Work Phone: [facility] [employer] 01-24-2023 12:22-0400 Heart rate 80 /min Breanna Tolliver MD Work Phone: [facility] [employer] 01-24-2023 12:22-0400 Systolic blood pressure 120 mm[Hg] Breanna Tolliver MD Work Phone: [facility] [employer] 01-02-2023 13:41-0400 Body height 180.3 cm Shawanda Costa MD Work Phone: [facility] [employer] 01-02-2023 13:41-0400 Body mass index (BMI) [Ratio] 32.08 kg/m2 Shawanda Costa MD Work Phone: [facility] [employer] 01-02-2023 13:41-0400 Body weight 104.33 kg Shawanda Costa MD Work Phone: [employer] 01-02-2023 13:41-0400 Diastolic blood pressure 74 mm[Hg] Shawanda Costa MD Work Phone: [employer] 01-02-2023 13:41-0400 Heart rate 93 /min Shawanda Costa MD Work Phone: [employer] 01-02-2023 13:41-0400 SaO2% (BldA) [Mass fraction] 98 % Shawanda Costa MD Work Phone: [employer] 01-02-2023 13:41-0400 Systolic blood pressure 100 mm[Hg] Shawanda Costa MD Work Phone: [employer] 10-19-2022 09:33-0500 Body height 180.3 cm Angelica Velázquez MD Work Phone: [employer] 10-19-2022 09:33-0500 Body mass index (BMI) [Ratio] 32.92 kg/m2 Angelica Velázquez MD Work Phone: [employer] 10-19-2022 09:33-0500 Body weight 107.05 kg Angelica Velázquez MD Work Phone: [employer] 10-19-2022 09:33-0500 Diastolic blood pressure 84 mm[Hg] Angelica Velázquez MD Work Phone: [employer] 10-19-2022 09:33-0500 Heart rate 84 /min Angelica Velázquez MD Work Phone: [employer] 10-19-2022 09:33-0500 Respiratory rate 15 /min Angelica Velázquez MD Work Phone: [employer] 10-19-2022 09:33-0500 Systolic blood pressure 126 mm[Hg] Angelica Velázquez MD Work Phone: [employer] Encounters Encounter Date Encounter Type Care Provider Facility Start: 03-20-2025 End: 03-20-2025 Telephone encounter Mohan Cervantes CNP [facility] [place] Start: 02-28-2025 End: 02-28-2025 ambulatory [facility] Start: 02-28-2025 End: 02-28-2025 Subsequent hospital visit by physician Mark Yeh MD Work Phone: [facility] Endoscopy Comment on above: Hemorrhage of anus a nd rectum; Unspecified hemorrhoids; Anemia, unspecified Start: 02-24-2025 End: 02-24-2025 Office outpatient visit 25 minutes Shawanda Costa MD Work Phone: [facility] Primary [facility] - [place] Comment on above: Chronic anemia (Prim jillian Dx); Essential hypertension; Recurrent major depressive disorder, in full remission (HCC); Screening for diabetes mellitus; Rheumatoid arthritis without rheumatoid factor, multiple sites (HCC); Stage 3a chronic kidney disease (HCC); Renal cancer, right (HCC); Pulmonary emphysema, unspecified emphysema type (HCC); Screening PSA (prostate specific antigen) Start: 02-24-2025 End: 02-24-2025 ambulatory [facility] Start: 01-24-2025 End: 01-24-2025 Telephone encounter Olga Ren MA [facility] Gastroenterology - [place] Start: 01-24-2025 End: 01-24-2025 Office outpatient visit 25 minutes Dany Healy DO Work Phone: [facility] Comment on above: Generalized anxiety disorder with panic attacks; Recurrent major depressive disorder, in full remission (HCC) Start: 01-24-2025 End: 01-24-2025 ambulatory [facility] Start: 01-20-2025 End: 01-20-2025 Office outpatient new 45 minutes Mohan Cervantes CNP [facility] [place] Comment on above: Loss of appetite (Pr imary Dx); Rectal bleeding; Irregular bowel habits; Hemorrhoids, unspecified hemorrhoid type; Chronic anemia Start: 01-20-2025 End: 01-20-2025 [facility] Start: 12-05-2024 End: 12-05-2024 Refill Shawanda Costa MD Work Phone: [facility] Start: 11-13-2024 End: 11-13-2024 Refill Shawanda Costa MD Work Phone: [facility] Start: 11-11-2024 End: 11-11-2024 Office outpatient visit 15 minutes Breanna Tolliver MD Work Phone: [facility] Comment on above: Essential tremor (Pr imary Dx); REM behavioral disorder; Parkinson's disease without dyskinesia or fluctuating manifestations (HCC) Start: 11-11-2024 End: 11-11-2024 ambulatory [facility] Start: 09-30-2024 End: 09-30-2024 Office outpatient visit 25 minutes Dany Healy DO Work Phone: [facility] Comment on above: Generalized anxiety disorder with panic attacks; Recurrent major depressive disorder, in full remission (HCC) Start: 09-30-2024 End: 09-30-2024 ambulatory [facility] Start: 09-16-2024 End: 09-16-2024 Subsequent hospital visit by physician Angelica Velázquez MD Work Phone: 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); Aneurysm of ascending aorta without rupture (HCC) Start: 09-16-2024 End: 09-16-2024 [facility] Start: 09-09-2024 End: 09-09-2024 Office outpatient new 45 minutes Tavo Wick MD Work Phone: [facility] Hepatobiliary - [place] Comment on above: Liver cyst Start: 09-09-2024 End: 09-09-2024 ambulatory [facility] Start: 09-02-2024 End: 09-02-2024 Office outpatient visit 25 minutes Angelica Velázquez MD Work Phone: [facility] Cardiology [facility] Comment on above: Aneurysm of ascendin g aorta without rupture (HCC) (Primary Dx); RBBB (right bundle branch block with left anterior fascicular block) Start: 09-02-2024 End: 09-02-2024 [facility] Start: 08-27-2024 End: 08-27-2024 Office outpatient visit 25 minutes Shawanda Costa MD Work Phone: [facility] Comment on above: Rectal bleeding (Isabelle shanel Dx); Chronic anemia; Renal cancer, right (HCC); Essential hypertension; Liver lesion; Recurrent major depressive disorder, in full remission (HCC) Start: 08-27-2024 End: 08-27-2024 [facility] Start: 08-26-2024 End: 08-26-2024 [facility] Start: 08-23-2024 End: 08-23-2024 Documentation procedure Breanna Don PA-C Work Phone: [facility] Start: 08-23-2024 End: 08-23-2024 Refill Shawanda Costa MD Work Phone: [facility] Start: 08-22-2024 End: 08-22-2024 [facility] Start: 08-22-2024 End: 08-22-2024 Office outpatient visit 25 minutes Conner Quintero MD Work Phone: [facility] Urology - [place] Comment on above: Renal cancer, right (HCC) (Primary Dx); Liver cyst; Benign prostatic hyperplasia with urinary frequency; Stage 3a chronic kidney disease (HCC) Start: 07-25-2024 End: 07-25-2024 [facility] Start: 07-25-2024 End: 07-25-2024 Subsequent hospital visit by physician Conner Quintero MD Work Phone: [facility] CT Comment on above: Renal cancer, right (HCC); Hematoma Start: 07-23-2024 End: 07-23-2024 Office outpatient visit 25 minutes [facility]aly DO [facility] Comment on above: Generalized anxiety disorder with panic attacks; Recurrent major depressive disorder, in full remission (HCC) Start: 07-23-2024 End: 07-23-2024 [facility] Start: 07-08-2024 End: 07-08-2024 Office outpatient visit 25 minutes Antonietta Cervantes CNP Work Phone: [facility] [place] Comment on above: Pulmonary nodule (Pr imary Dx); Pulmonary emphysema, unspecified emphysema type (HCC); History of nicotine dependence; History of primary transitional cell carcinoma of right kidney Start: 07-08-2024 End: 07-08-2024 [facility] Start: 07-01-2024 End: 07-01-2024 Refill Shawanda Costa MD Work Phone: [facility] - [place] Start: 06-04-2024 End: 06-04-2024 Telephone encounter Antonietta Cervantes CNP Work Phone: [facility] Pulmonary and Sleep Medicine Start: 05-28-2024 End: 05-28-2024 Subsequent hospital visit by physician Shawanda Costa MD Work Phone: [facility] CT Comment on above: History of nicotine dependence Start: 05-28-2024 End: 05-28-2024 ambulatory SHAWANDA TYRONEI [facility] Start: 05-19-2024 End: 05-20-2024 Refill Shawanda Costa MD Work Phone: [facility] Family Medicine Start: 05-15-2024 End: 05-16-2024 Refill Shawanda Costa MD Work Phone: [facility] Family Medicine Start: 05-10-2024 End: 05-10-2024 Office outpatient visit 25 minutes Breanna Tolliver MD Work Phone: [facility] Neuroscience Comment on above: REM behavioral disor janet (Primary Dx); Parkinson's disease without dyskinesia or fluctuating manifestations (HCC); Essential tremor Start: 05-10-2024 End: 05-10-2024 [facility] Start: 04-30-2024 End: 05-01-2024 Telephone encounter Shawanda Costa MD Work Phone: [facility] Family Medicine Start: 04-30-2024 End: 04-30-2024 [facility]ulatory [facility] Start: 04-30-2024 End: 04-30-2024 Office outpatient visit 25 minutes Shawanda Costa MD Work Phone: [facility] Family Medicine Comment on above: Chronic anemia (Prim jillian Dx); Renal cancer, right (HCC); REM sleep behavior disorder; Essential hypertension Start: 04-24-2024 End: 04-24-2024 Postop follow up visit related to original px Conner Quintero MD Work Phone: [facility] Urology Comment on above: Renal cancer, right (HCC) (Primary Dx); Scrotal swelling; Hematoma Start: 04-24-2024 End: 04-24-2024 ambulatory [facility] Start: 04-23-2024 End: 04-23-2024 ambulatory [facility] Start: 04-19-2024 End: 04-19-2024 Subsequent hospital visit by physician [facility] Exam Room [address] [facility] [address] Comment on above: Arrived Start: 04-19-2024 End: 04-19-2024 Emergency department patient visit Van Holcomb MD Work Phone: [facility] ED Comment on above: Abdominal wall hemat margaret, initial encounter (Primary Dx); S/p nephrectomy Start: 04-14-2024 End: 04-14-2024 Emergency department patient visit Brayan Leon MD Work Phone: [facility] EMERGENCY DEPT Comment on above: Postoperative hemorr bobby of subcutaneous tissue following non-dermatologic procedure (Primary Dx) Start: 04-13-2024 End: 04-15-2024 ambulatory Ananya Montana RN [facility] Clinical Communication Start: 04-13-2024 End: 04-15-2024 Patient encounter procedure Ananya Montana RN [facility] Clinical Communication Start: 04-08-2024 End: 04-09-2024 Evaluation and management of inpatient Conner Quintero MD Work Phone: [facility] Medical Surgical Unit [facility] Comment on above: Renal mass, right (P rimary Dx); Other specified disorders of kidney and ureter; Post-op pain Start: 04-01-2024 End: 04-01-2024 [facility] Start: 04-01-2024 End: 04-01-2024 Encounter for other preprocedural examination CONNER QUINTERO [facility] Start: 03-10-2024 Refill Shawanda murray MD Work Phone: [facility] Family Medicine Start: 03-04-2024 Telephone encounter Conner mccarthy MD Work Phone: [facility] Urology Comment on above: Surgery Scheduling Start: 02-29-2024 End: 02-29-2024 ambulatory Shawanda Costa Facility:[facility] Start: 02-28-2024 End: 02-28-2024 Office outpatient visit 25 minutes Conner Quintero MD Work Phone: [facility] Urology Comment on above: Renal mass (Primary Dx); Renal cyst Start: 02-20-2024 Refill Shawanda murray MD Work Phone: [facility] Family Medicine Start: 02-07-2024 End: 02-07-2024 Office outpatient visit 25 minutes Shawanda Costa MD Work Phone: [facility] Family Medicine Comment on above: Liver lesion (Primar y Dx); Renal cyst, right Start: 01-24-2024 End: 01-24-2024 Office outpatient visit 25 minutes Conner Quintero MD Work Phone: [facility] Urology Comment on above: Renal mass (Primary Dx); Renal cyst Start: 01-16-2024 End: 01-16-2024 Subsequent hospital visit by physician Conner Quintero MD Work Phone: [facility] Comment on above: Renal mass Start: 01-14-2024 Refill Shawanda murray MD Work Phone: [facility] Family Medicine Start: 12-26-2023 End: 12-26-2023 Office outpatient visit 25 minutes Shawanda Costa MD Work Phone: [facility] Medicine Comment on above: Arthralgia of hand, unspecified laterality (Primary Dx); Pulmonary emphysema, unspecified emphysema type (HCC); Aneurysm of ascending aorta without rupture (HCC); Anxiety Start: 12-25-2023 End: 12-25-2023 Office outpatient visit 25 minutes Breanna Tolliver MD Work Phone: [facility] Neuroscience Comment on above: Parkinson's disease without dyskinesia or fluctuating manifestations (Primary Dx); REM sleep behavior disorder Start: 11-18-2023 Refill Shawanda murray MD Work Phone: [facility] Medicine Start: 11-11-2023 Refill Shawanda murray MD Work Phone: [facility] Family Medicine Start: 10-24-2023 End: 10-24-2023 Office outpatient visit 15 minutes Shawanda Costa MD Work Phone: [facility] Medicine Comment on above: Skin lesions (Primar y Dx) Start: 09-20-2023 End: 09-20-2023 Office outpatient visit 25 minutes Breanna Tolliver MD Work Phone: [facility] Neuroscience Comment on above: Parkinson's disease without dyskinesia or fluctuating manifestations (Primary Dx); REM sleep behavior disorder Start: 09-19-2023 Refill Yamilet M Pe ters DO Work Phone: [facility] Start: 09-12-2023 Refill Shawanda murray MD Work Phone: [facility] Start: 09-06-2023 End: 09-06-2023 ambulatory Milana Hussein NP Work Phone: [facility] Comment on above: Chronic thoracic emelia k pain, unspecified back pain laterality (Primary Dx) Start: 09-04-2023 End: 09-04-2023 Follow-up encounter Milana Hussein NP Work Phone: [facility] Comment on above: Chronic thoracic emelia k pain, unspecified back pain laterality (Primary Dx) Start: 08-30-2023 End: 08-30-2023 Follow-up encounter Milana Hussein NP Work Phone: [facility] Comment on above: Chronic thoracic emelia k pain, unspecified back pain laterality (Primary Dx) Start: 08-29-2023 End: 08-29-2023 Assay of hemosiderin, quant Shawanda Costa MD Work Phone: [facility] Work Phone: Start: 08-29-2023 End: 08-29-2023 Patient encounter procedure Shawanda Costa MD Work Phone: [facility] Comment on above: Routine general medi nga examination at health care facility (Primary Dx) Start: 08-23-2023 End: 08-23-2023 Follow-up encounter Milana Hussein [employer] Work Phone: [facility] Comment on above: Chronic thoracic emelia k pain, unspecified back pain laterality (Primary Dx) Start: 08-21-2023 End: 08-21-2023 Follow-up encounter Milana Hussein NP Work Phone: [facility] Comment on above: Chronic thoracic emelia k pain, unspecified back pain laterality (Primary Dx) Start: 08-14-2023 End: 08-14-2023 Follow-up encounter Milana Hussein NP Work Phone: [facility] Comment on above: Chronic thoracic emelia k pain, unspecified back pain laterality (Primary Dx) Start: 08-11-2023 End: 08-11-2023 Follow-up encounter Scott Grider [facility] Comment on above: Chronic thoracic emelia k pain, unspecified back pain laterality (Primary Dx) Start: 08-08-2023 End: 08-08-2023 ambulatory Milana Hussein NP Work Phone: [facility] Comment on above: Chronic thoracic emelia k pain, unspecified back pain laterality Start: 07-26-2023 End: 07-26-2023 Office outpatient visit 25 minutes Conner Quintero MD Work Phone: [facility] Urology Comment on above: Renal mass (Primary Dx); Renal cyst; Renal calculus Start: 07-21-2023 End: 07-21-2023 Subsequent hospital visit by physician Conner Quintero MD Work Phone: [facility] MRI Comment on above: Renal mass; Renal cyst Start: 07-20-2023 Telephone encounter Milana alarcon [employer] Work Phone: [facility] Clinical Communication Comment on above: PT order Start: 07-07-2023 End: 07-07-2023 Office outpatient visit 25 minutes Shawanda Costa MD Work Phone: [facility] Family Medicine Comment on above: Chronic anemia (Prim jillian Dx); Screening, lipid; Controlled REM sleep behavior disorder Start: 07-05-2023 Refill Breanna Tolliver MD Work Phone: [facility] Neuroscience Start: 06-28-2023 End: 06-28-2023 Office outpatient visit 25 minutes Breanna Tolliver MD Work Phone: [facility] Neuroscience Comment on above: Tremor (Primary Dx); REM sleep behavior disorder Start: 06-20-2023 End: 06-20-2023 Office outpatient visit 15 minutes Shawanda Costa MD Work Phone: [facility] Family Medicine Comment on above: Mouth sores (Primary Dx); Sore in nose Start: 05-23-2023 Telephone encounter Igor Ann ra, MD Work Phone: [facility] Urology Start: 05-22-2023 ambulatory Shawanda Costa [facility] Start: 05-22-2023 End: 05-22-2023 Subsequent hospital visit by physician [facility] Xr Exam Room 3 [facility] Radiology Comment on above: Renal calculus Personal history of nicotine dependence Calculus of kidney ( Primary Dx) Start: 05-16-2023 Refill Shawanda murray MD Work Phone: [facility] Family Medicine Start: 05-04-2023 End: 05-04-2023 Patient encounter procedure Igor Subramanian MD Work Phone: [facility] Urology Comment on above: Renal calculus (Prim jillian Dx) Start: 04-10-2023 End: 04-10-2023 Office outpatient visit 15 minutes Breanna Tolliver MD Work Phone: [facility] Neuroscience Comment on above: Tremor (Primary Dx) Start: 04-04-2023 Telephone encounter Igor Ann ra, MD Work Phone: [facility] Urology Start: 04-04-2023 End: 04-04-2023 Subsequent hospital visit by physician Igor Subramanian MD Work Phone: [facility] MAIN OR Comment on above: Calculus of ureter ( Primary Dx) Arrived Start: 03-30-2023 Telephone encounter Igor Ann ra, MD Work Phone: [facility] Urology Comment on above: Surgery Scheduling ( Surgery Time Change) Start: 03-14-2023 End: 03-14-2023 Office outpatient visit 25 minutes Carmen Calderón FINISHING MACHINE TENDER - [employer]OR[employer] COUNSELOR Work Phone: [facility] Cardiology Comment on above: Troponin level eleva sheri Start: 02-22-2023 Telephone encounter Shawanda arredondo MD Work Phone: [facility] Family Medicine Comment on above: Release of Informati on Start: 02-19-2023 ambulatory Esha Arango RN [facility] martinical Communication Start: 02-19-2023 Patient encounter procedure Esha Arango RN [facility] Clinical Communication Start: 02-12-2023 Telephone encounter Igor Ann ra, MD Work Phone: [facility] Urology Comment on above: Advice Only Start: 02-11-2023 End: 02-11-2023 Subsequent hospital visit by physician [facility] Exam Room [address] [facility] [address] Comment on above: Arrived Start: 02-11-2023 End: 02-14-2023 Evaluation and management of inpatient Haresh Fournier MD Work Phone: [facility] Comment on above: Gram-negative sepsis , unspecified (HCC) (Primary Dx); Dizziness; Lightheadedness; Acute cystitis without hematuria; Elevated troponin; Hyponatremia; Essential hypertension; RBBB (right bundle branch block with left anterior fascicular block); Abnormal EKG Start: 02-02-2023 Telephone encounter Milana alarcon [employer] Work Phone: [facility]ics [facility] Comment on above: scheduling Start: 01-24-2023 End: 01-24-2023 Office outpatient new 45 minutes Breanna Tolliver MD Work Phone: [facility] Neuroscience Comment on above: Essential tremor (Pr imary Dx); REM sleep behavior disorder; WAYNE (obstructive sleep apnea) Start: 01-17-2023 Telephone encounter Tanmay singer DO Work Phone: [facility] Clinical Communication Comment on above: Med Refill Start: 01-16-2023 ambulatory Shawanda Costa [facility] Start: 01-16-2023 End: 01-16-2023 Subsequent hospital visit by physician Conner Quintero MD Work Phone: [facility] Comment on above: Other specified diso rders of kidney and ureter Start: 01-04-2023 Telephone encounter Shawanda arredondo MD Work Phone: [facility] Family Medicine Comment on above: Results Start: 01-02-2023 End: 01-02-2023 Subsequent hospital visit by physician Shawanda Costa MD Work Phone: [facility] Radiology Comment on above: Chronic midline thor acic back pain Start: 01-02-2023 End: 01-02-2023 Office outpatient visit 25 minutes Shawanda Costa MD Work Phone: [facility] Family Medicine Comment on above: Chronic midline thor acic back pain (Primary Dx); Restless legs syndrome (RLS); BPH associated with nocturia Start: 12-29-2022 End: 12-29-2022 ambulatory Shawanda Costa MD Work Phone: [facility] Laboratory Comment on above: Arrived Start: 10-31-2022 End: 10-31-2022 Office outpatient visit 25 minutes Shawanda Costa MD Work Phone: [facility] Comment on above: Coarse tremors (Prim jillian Dx); Screening for colon cancer Start: 10-19-2022 End: 10-19-2022 Office outpatient visit 25 minutes Angelica Velázquez MD Work Phone: [facility] Comment on above: RBBB (right bundle b ranch block with left anterior fascicular block) (Primary Dx); Essential hypertension Start: 07-31-2022 Transcribe Orders Antonietta Cervantes CNP Work Phone: [facility] Clinical Communication Comment on above: Personal history of nicotine dependence (Primary Dx) Start: 07-30-2022 Transcribe Orders Conner ham MD Work Phone: [facility] Central Scheduling Comment on above: Other specified diso rders of kidney and ureter (Primary Dx) Start: 07-18-2022 ambulatory Shawanda Julissa [facility] Start: 07-18-2022 End: 07-18-2022 Subsequent hospital visit by physician Conner Quintero MD Work Phone: [facility] MRI Comment on above: Right renal mass; Renal cyst, right Start: 06-23-2022 [facility] Start: 06-23-2022 End: 06-23-2022 Subsequent hospital visit by physician Shawanda Costa MD Work Phone: [facility] EKG Start: 05-16-2022 [facility] Start: 05-16-2022 End: 05-16-2022 Subsequent hospital visit by physician Antonietta Cervantes CNP Work Phone: [facility] Comment on above: Solitary pulmonary n odule; Personal history of nicotine dependence; Pulmonary nodule; History of nicotine dependence Start: 03-18-[address] [facility] Start: 03-18-2022 End: 03-18-2022 Subsequent hospital visit by physician Shawanda Costa MD Work Phone: [facility] Laboratory Comment on above: Essential hypertensi on; BPH without obstruction/lower urinary tract symptoms; RBBB (right bundle branch block with left anterior fascicular block); Pulmonary nodule; Renal mass; RLS (restless legs syndrome); Recurrent depression (HCC) Start: 11-15-2021 [facility] Start: 10-19-2021 [facility] Start: 10-19-2021 End: 10-19-2021 Subsequent hospital visit by physician Chris Sandoval MD Work Phone: [facility] ECHO Comment on above: Abnormal EKG Start: 10-18-2021 [facility] Start: 10-18-2021 End: 10-18-2021 Subsequent hospital visit by physician Shawanda Costa MD Work Phone: [facility] Comment on above: Tobacco use; Tobacco abuse Start: 09-16-2021 [facility] Start: 08-13-2021 [facility] Start: 07-20-2021 End: 07-20-2021 Subsequent hospital visit by physician Shawanda Costa MD Work Phone: [facility] Comment on above: Dizziness and giddin ess; Syncope and collapse; Chronic cough; Dizziness; Pre-syncope Start: 05-17-2021 End: 05-17-2021 Subsequent hospital visit by physician Shawanda Costa MD Work Phone: [facility] Laboratory Comment on above: BPH without urinary obstruction; Mixed hyperlipidemia Start: 08-31-2020 End: 08-31-2020 Subsequent hospital visit by physician Shawanda Costa Work Phone: [facility] Laboratory Comment on above: Essential hypertensi on Start: 08-28-2020 End: 08-28-2020 Subsequent hospital visit by physician Fab Porter Work Phone: [facility] Comment on above: Liver cyst; Hepatomegaly; Fatty liver Start: 08-25-2020 End: 08-25-2020 Subsequent hospital visit by physician Shawanda Costa Work Phone: [facility] Laboratory Comment on above: Recurrent depression (HCC); Social anxiety disorder; BPH without obstruction/lower urinary tract symptoms; Essential hypertension; Other sleep disorders Hepatomegaly; Fatty liver; Need for hepatitis B screening test Start: 07-08-2020 End: 07-08-2020 Subsequent hospital visit by physician Shawanda Costa Work Phone: [facility] Comment on above: Liver cyst Start: 06-29-2020 End: 06-29-2020 Subsequent hospital visit by physician Shawanda Costa Work Phone: [facility] Comment on above: Encounter for screen ing for cardiovascular disorders; Screening for AAA (aortic abdominal aneurysm) Procedures Date Procedure Procedure Detail Performing Clinician Start: 02-28-2025 Colonoscopy Mark mitchell MD Work Phone: Start: 09-16-2024 TTE w or wo fol wcon,Doppler Angelica Velázquez MD Work Phone: Start: 09-02-2024 Ecg routine ecg w/le ast 12 lds w/i&r Angelica Velázquez MD Work Phone: Start: 04-23-2024 End: 04-23-2024 Psychiatric diagnostic eval w/medical services Generalized anxiety disorder with panic attacks Dany M Monet DO Work Phone: Comment on above: Generalized anxiety disorder with panic attacks; Recurrent major depressive disorder, in full remission (HCC) Start: 04-19-2024 Ct abdomen & pelvis w/contrast material Van Holcomb MD Work Phone: Start: 04-19-2024 Basic metabolic pane l calcium total Van Holcomb MD Work Phone: Start: 04-14-2024 Creatinine blood Francisca Hayes MD Work Phone: Start: 04-09-2024 Basic metabolic pane l calcium total Shelbi Canales MD Work Phone: Start: 04-08-2024 End: 04-08-2024 Laparoscopy radical nephrectomy Conner Quintero MD Work Phone: Start: 04-01-2024 Antibody screen SHAWANDA SHELBY Comment on above: Performed By: #### L [id number] ####Cruise Coordinator: DAI ANDERSON ([phone])[facility] ([address] Start: 12-18-2023 Lipid 1996 panel - S selam or Plasma Shawanda Costa MD Work Phone: Start: 04-04-2023 [place] GUIDANCE OR USE O NLY - NON-RESULTABLE Igor Subramanian MD Work Phone: Start: 02-14-2023 Comprehensive metabo lic panel Neo Issa MD Work Phone: Start: 02-13-2023 TTE w or wo fol wconAndrey MD Work Phone: Start: 02-13-2023 Comprehensive metabo lic panel Neo Issa MD Work Phone: Start: 02-12-2023 FL GUIDANCE OR USE O NLY - NON-RESULTABLE Igor Subramanian MD Work Phone: Start: 02-12-2023 End: 02-12-2023 Cysto w/insert ureteral stent Igor Subramanian MD Work Phone: Start: 02-12-2023 Comprehensive metabo lic panel Neo Issa MD Work Phone: Start: 02-11-2023 Assay of troponin quantitative Haresh Fournier MD Work Phone: Start: 02-11-2023 Culture bacterial quanttative colony count urine Haresh Fournier MD Work Phone: Start: 02-11-2023 Urinalysis complete panel - Urine Haresh Fournier MD Work Phone: Start: 02-11-2023 SARS-COV-2, FLU A/B, AND RSV COMBO Haresh Fournier MD Work Phone: Start: 02-11-2023 Ct abdomen & pelvis w/o contrast material Haresh Fournier MD Work Phone: Start: 02-11-2023 Radiologic exam ches t single view Haresh Fournier MD Work Phone: Start: 02-11-2023 End: 02-11-2023 Bacteria identified in Blood by Culture Haresh Fournier MD Work Phone: Start: 02-11-2023 BLOOD CULTURE IDENTIFICATION - ANAEROBIC Haresh Fournier MD Work Phone: Start: 02-11-2023 Comprehensive metabo lic panel Haresh Fournier MD Work Phone: Start: 02-11-2023 Ecg routine ecg w/le ast 12 lds trcg only w/o i&r Haresh Fournier MD Work Phone: Start: 01-16-2023 Us retroperitoneal r eal time w/image complete Conner Quintero MD Work Phone: Start: 07-18-2022 Mri abdomen w/o & w/contrast material Conner Quintero MD Work Phone: Start: 03-18-2022 Comprehensive metabo lic panel Shawanda Costa MD Work Phone: Start: 03-18-2022 Lipid panel Shawanda arredondo MD Work Phone: Start: 03-18-2022 Lipid 1996 panel - S selam or Plasma Shawanda Costa MD Work Phone: Start: 10-19-2021 Echo tthrc r-t 2d w/wom-mode compl spec&colr d Chris Sandoval MD Work Phone: Start: 10-18-2021 Ct thorax w/o contra st material Shawanda Costa MD Work Phone: Start: 07-20-2021 Radiologic exam ches t 2 views Shawanda Costa MD Work Phone: Start: 07-20-2021 Duplex scan extracra nial art compl bi study Shawanda Costa MD Work Phone: Start: 05-17-2021 Comprehensive metabo lic panel Shawanda Costa MD Work Phone: Start: 05-17-2021 Lipid panel Shawanda arredondo MD Work Phone: Start: 08-31-2020 Comprehensive metabo lic panel Shawanda Costa Work Phone: Start: 08-28-2020 CT Abdomen and Pelvi s W contrast IV Fab Porter Work Phone: Start: 08-28-2020 Creatinine blood Rachel Porter Work Phone: Start: 08-25-2020 Assay of ferritin Cris Porter Work Phone: Start: 08-25-2020 Hepatitis b surf ant ibody hbsab Fab Porter Work Phone: Start: 08-25-2020 Hepatitis c antibody Jb Porter Work Phone: Start: 08-25-2020 Iaad ia hepatitis b surface antigen Fab Porter Work Phone: Start: 08-25-2020 Iron binding capacity Glendy Porter Work Phone: Start: 08-25-2020 Prothrombin time Rachel Porter Work Phone: Start: 08-25-2020 Assay of thyroid stimulating hormone tsh Shawanda Costa Work Phone: Start: 07-08-2020 Us abdominal real ti me w/image documentation Shawanda Costa Work Phone: Start: 06-29-2020 Us abdominal aorta r eal time screen study aaa Shawanda Costa Work Phone: Plan of Treatment Date Care Activity Detail Author Start: 02-28-2035 Screening for malignant neoplasm of colon [facility] Start: 01-20-2030 DTaP/Tdap/Td vaccine (3 - Td or Tdap) DTaP/Tdap/Td vaccine (3 - Td or Tdap) [facility] Start: 01-20-2030 DTaP/Tdap/Td vaccine (3 - Td) DTaP/Tdap/Td vaccine (3 - Td) [place] Start: 01-20-2030 DTaP/Tdap/Td Vaccines (2 - Td or Tdap) DTaP/Tdap/Td Vaccines (2 - Td or Tdap) [facility] Start: 01-20-2030 DTaP/Tdap/Td Vaccines (3 - Td or Tdap) DTaP/Tdap/Td Vaccines (3 - Td or Tdap) [facility] Start: 12-17-2028 Lipid panel Lipid Panel [facility] Start: 03-18-2027 Lipid panel [facility] Start: 09-16-2026 Lipid panel Lipid screen [facility] Start: 05-17-2026 Lipid panel Lipid screen [facility] Work Phone: Start: 09-03-2025 End: 09-03-2025 Admission to same day surgery center 09/03/2025 2:15 PM EST - 09/03/2025 3:00 PM EST Surgery [facility] [address] [place] [address] Gia Gibbons MD [address] [place] [address] COLONOSCOPY [14541 (CPT )] [facility] [address] Comment on above: COLONOSCOPY [37619 (CPT )] Start: 09-03-2025 End: 09-03-2025 Colonoscopy flx dx w/collj spec when pfrmd COLONOSCOPY Hemorrhage of anus and rectum Unspecified hemorrhoids Anemia, unspecified 09/03/2025 2:15 PM EST [facility] Start: 09-03-2025 End: 09-03-2025 Esophagogastroduodenoscopy transoral diagnostic ESOPHAGOGASTRODUODENO SCOPY, DIAGNOSTIC Hemorrhage of anus and rectum Unspecified hemorrhoids Anemia, unspecified 09/03/2025 2:15 PM EST [facility] Start: 09-03-2025 Subsequent hospital visit by physician 09/03/2025 2:15 PM EST Hospital Encounter [facility] [address] [place] [phone] Gia Gibbons MD [address] [place] [address] [facility] [address] Start: 08-27-2025 End: 08-27-2025 Patient encounter procedure 08/27/2025 1:40 PM EST Office Visit [facility] [address] [place] [phone] Conner Quintero MD [address] [place] [address] [facility] Start: 08-25-2025 End: 08-25-2025 Patient encounter procedure 08/25/2025 11:00 AM EST [facility] [address] [place] [address] Shawanda Costa MD [address] [place], [place] [address] [facility] Start: 08-24-2025 Depression Monitoring Depression Monitoring [facility] Start: 08-21-2025 End: 08-22-2025 Basic metabolic 1998 panel - Serum or Plasma Basic metabolic panel Lab Routine Renal cancer, right (HCC) Expected: 08/21/2025 (Approximate), Expires: 08/22/2025 [facility] Comment on above: Expected: 08/21/2025 (Approximate), Expi res: 08/22/2025 Start: 08-21-2025 End: 08-22-2025 CT Abdomen and Pelvis WO and W contrast IV CT chest abdomen pelvis without contrast Imaging Routine Renal cancer, right (HCC) Expected: 08/21/2025, Expires: 08/22/2025 [facility] Work Phone: Comment on above: Expected: 08/21/2025, Expires: Start: 08-20-2025 End: 08-20-2025 Patient encounter procedure 08/20/2025 3:45 PM EST Appointment [facility] CT [address] [place] [address] [facility] [address] Start: 07-11-2025 Screening for malignant neoplasm of colon [facility] Start: 06-04-2025 End: 06-04-2025 Patient encounter procedure 06/04/2025 10:40 AM EDT Office Visit [facility] [place] [address] [place] [phone] Antonietta Mcgill, FINISHING MACHINE TENDER - MEMORIAL COUNSELOR [address] [place] [address] [facility] Start: 05-28-2025 End: 07-08-2025 CT Chest for screening WO contrast CT lung screening low dose Imaging Routine History of nicotine dependence Expected: 05/28/2025, Expires: 07/08/2025 [facility] Work Phone: Comment on above: Expected: 05/28/2025, Expires: Start: 05-28-2025 End: 05-28-2025 Patient encounter procedure 05/28/2025 11:15 AM EDT Appointment [facility] [address] [place] [phone] [facility] [address] Start: 05-12-2025 End: 05-12-2025 Patient encounter procedure 05/12/2025 12:40 PM EDT Office Visit [facility] [address] [place] [phone] Breanna Tolliver MD [address] [place] [address] [facility] Start: 04-28-2025 End: 04-28-2025 Follow-up encounter 04/28/2025 1:30 PM EDT Follow-Up [facility] [address] [place] [phone] Mohan Haskins APRN - CNP [address] [facility] [address] [place] [address] [facility] Start: 04-28-2025 End: 04-28-2025 Patient encounter procedure 04/28/2025 1:00 PM EDT Office Visit [facility] [address] [facility] [address] [place] [phone] Dany Healy DO [address] [place] [address] [facility] Start: 02-28-2025 End: 02-28-2025 Admission to same day surgery center 02/28/2025 7:00 AM EDT - 02/28/2025 8:00 AM EDT Surgery [facility] [address] [place] [phone] aMrk Yeh MD [address] [facility] [address] [place] [address] ESOPHAGOGASTRODUODENO SCOPY, DIAGNOSTIC [82199 (CPT )] [facility] Comment on above: ESOPHAGOGASTRODUODENOSCOPY, DIAGNOSTIC [ 33006 (CPT )] Start: 02-28-2025 End: 02-28-2025 Colonoscopy flx dx w/collj spec when pfrmd [facility] Start: 02-28-2025 End: 02-28-2025 Esophagogastroduodenoscopy transoral diagnostic [facility] Start: 02-28-2025 Subsequent hospital visit by physician 02/28/2025 7:00 AM EDT Hospital Encounter [facility] [address] [place] [phone] Mark Yeh MD [address] [place] [address] [facility] Start: 02-24-2025 End: 02-24-2026 CBC W Auto Differential panel - Blood CBC auto differential Lab Routine Chronic anemia Essential hypertension Recurrent major depressive disorder, in full remission (HCC) Screening for diabetes mellitus Rheumatoid arthritis without rheumatoid factor, multiple sites (HCC) Stage 3a chronic kidney disease (HCC) Renal cancer, right (HCC) Expected: 02/24/2025 (Approximate), Expires: 02/24/2026 [facility] Comment on above: Expected: 02/24/2025 (Approximate), Expi res: 02/24/2026 Start: 02-24-2025 End: 02-24-2026 Comprehensive metabolic 1998 panel - Serum or Plasma Comprehensive metabolic panel Lab Routine Chronic anemia Essential hypertension Recurrent major depressive disorder, in full remission (HCC) Screening for diabetes mellitus Rheumatoid arthritis without rheumatoid factor, multiple sites (HCC) Stage 3a chronic kidney disease (HCC) Renal cancer, right (HCC) Expected: 02/24/2025 (Approximate), Expires: 02/24/2026 [facility] Comment on above: Expected: 02/24/2025 (Approximate), Expi res: 02/24/2026 Start: 02-24-2025 End: 02-24-2026 Hemoglobin A1c measurement Hemoglobin A1c Lab Routine Chronic anemia Essential hypertension Recurrent major depressive disorder, in full remission (HCC) Screening for diabetes mellitus Rheumatoid arthritis without rheumatoid factor, multiple sites (HCC) Stage 3a chronic kidney disease (HCC) Renal cancer, right (HCC) Expected: 02/24/2025 (Approximate), Expires: 02/24/2026 [facility] Work Phone: Comment on above: Expected: 02/24/2025 (Approximate), Expi res: 02/24/2026 Start: 02-24-2025 End: 02-24-2026 Lipid 1996 panel - Serum or Plasma Lipid panel Lab Routine Chronic anemia Essential hypertension Recurrent major depressive disorder, in full remission (HCC) Screening for diabetes mellitus Rheumatoid arthritis without rheumatoid factor, multiple sites (HCC) Stage 3a chronic kidney disease (HCC) Renal cancer, right (HCC) Expected: 02/24/2025 (Approximate), Expires: 02/24/2026 [facility] Comment on above: Expected: 02/24/2025 (Approximate), Expi res: 02/24/2026 Start: 02-24-2025 End: 02-24-2026 PSA screening PSA Screening Lab Routine Screening PSA (prostate specific antigen) Expected: 02/24/2025 (Approximate), Expires: 02/24/2026 [facility] Comment on above: Expected: 02/24/2025 (Approximate), Expi res: 02/24/2026 Start: 02-24-2025 End: 02-24-2025 Patient encounter procedure 02/24/2025 11:00 AM EDT Office Visit [facility] [place] [address] [place] [phone] Shawanda Costa MD [address] [place] [address] [facility] [place] Start: 02-21-2025 Depression Monitoring Depression Monitoring [facility] Start: 02-19-2025 Lipid panel Lipid screen [facility] [place] [place] Start: 01-24-2025 End: 01-24-2025 Telemedicine consultation with patient 01/24/2025 11:00 AM EDT Telemedicine [facility] [address] [place] [phone] Dany Healy DO [address] [place] [address] [facility] Start: 11-11-2024 End: 11-11-2024 Patient encounter procedure [facility] Start: 09-30-2024 End: 09-30-2024 Telemedicine consultation with patient 09/30/2024 10:30 AM EST Telemedicine [facility] [address] [place] [phone] Dany Healy DO [address] [place] [address] [facility] Start: 09-28-2024 Medicare Annual Wellness (AWV) Medicare Annual Wellness (AWV) [facility] Start: 09-16-2024 End: 09-16-2024 Patient encounter procedure 09/16/2024 3:00 PM EST Appointment [facility] Non-Invasive Cardiology [address] [place] [address] Angelica Velázquez MD [address] [facility] [address] [place] [address] [facility] Non-Invasive Cardiology Start: 09-09-2024 End: 09-09-2024 Patient encounter procedure 09/09/2024 2:00 PM EST Office Visit [facility] [place] [address] [place] [address] Tavo Wick MD [address] [place] [address] [facility] [place] Start: 09-02-2024 End: 09-02-2026 US Heart Transthoracic Transthoracic echocardiogram (TTE) complete with contrast, bubble, strain, and 3D PRN CV Echocardiography Routine RBBB (right bundle branch block with left anterior fascicular block) Aneurysm of ascending aorta without rupture (HCC) Expected: 09/02/2024 (Approximate), Expires: 09/02/2026 [facility] [employer] Work Phone: Comment on above: Expected: 09/02/2024 (Approximate), Expi res: 09/02/2026 Start: 09-02-2024 End: 09-02-2024 Patient encounter procedure 09/02/2024 10:20 AM EST Office Visit [facility] Cardiology [facility] [address] [place] [phone] Angelica Velázquez MD [address] [facility] [address] [place] [address] [facility] Cardiology [facility] Start: 08-27-2024 End: 08-27-2024 Patient encounter procedure [facility] Start: 08-22-2024 End: 08-22-2024 Patient encounter procedure [facility] Start: 08-14-2024 End: 08-14-2024 Patient encounter procedure 08/14/2024 9:40 AM EDT Office Visit [facility] [address] [place] [address] Conner Quintero MD [address] [place] [address] [facility] Start: 08-06-2024 End: 08-06-2024 Patient encounter procedure 08/06/2024 10:40 AM EDT Office Visit [facility] [address] [place] [phone] Shawanda Costa MD [address] [place] [address] [facility] Start: 07-25-2024 End: 04-24-2025 Basic metabolic 1998 panel - Serum or Plasma Basic metabolic panel Lab Routine Renal cancer, right (HCC) Expected: 07/25/2024 (Approximate), Expires: 04/24/2025 [facility] Comment on above: Expected: 07/25/2024 (Approximate), Expi res: 04/24/2025 Start: 07-25-2024 End: 04-24-2025 CT Abdomen WO contrast [facility] Work Phone: Comment on above: Expected: 07/25/2024, Expires: Once for 1 Occurrenc es starting 07/25/2024 until 07/25/2024 Start: 07-25-2024 End: 07-25-2024 Patient encounter procedure 07/25/2024 11:15 AM EDT Appointment [facility] [address] [place] [address] Conner Quintero MD [address] [place] [address] [facility] [address] Start: 07-25-2024 Subsequent hospital visit by physician 07/25/2024 11:15 AM EDT Hospital Encounter [facility] [address] [place] [address] Conner Quintero MD [address] [place] [address] [facility] [address] Start: 07-23-2024 End: 07-23-2024 Telemedicine consultation with patient [facility] Start: 07-08-2024 End: 07-08-2024 Patient encounter procedure 07/08/2024 11:10 AM EDT Office Visit [facility] [place] [address] [place] [address] Antonietta Mcgill, FINISHING MACHINE TENDER - MEMORIAL COUNSELOR [address] [place] [address] [facility] [place] Start: 06-18-2024 End: 06-18-2024 Patient encounter procedure 06/18/2024 9:40 AM EDT Office Visit [facility] Pulmonary and Sleep Medicine [address] [place] [address] Antonietta Mcgill FINISHING MACHINE TENDER - MEMORIAL COUNSELOR [address] [place] [address] [facility] Start: 06-16-2024 COVID-19 Vaccine ( season) COVID-19 Vaccine () [facility] Start: 06-16-2024 COVID-19 Vaccine () COVID-19 Vaccine () [facility] Start: 06-16-2024 Influenza vaccination Influenza Vaccine (#1) [facility] Start: 06-06-2024 End: 06-06-2024 Patient encounter procedure 06/06/2024 2:40 PM EDT Office Visit [facility] [address] [place] [address] Shawanda Costa MD [address] [place], [place] [address] [facility] Start: 05-28-2024 End: 05-28-2024 Patient encounter procedure [facility] Start: 05-28-2024 Subsequent hospital visit by physician 05/28/2024 10:15 AM EDT Hospital Encounter [facility] [address] [place] [address] Shawanda Costa MD [address] [place], [place] [id number] [facility] [address] Start: 05-22-2024 Screening for malignant neoplasm of lung Lung Cancer Screening [facility] Start: 05-10-2024 End: 05-10-2024 Patient encounter procedure 05/10/2024 1:30 PM EDT Office Visit [facility] Neuroscience [address] [facility] [address] [place] [address] Breanna Tolliver MD [address] [facility] [facility] [address] [place], [place] [id number] [facility] Start: 04-30-2024 End: 04-30-2025 CBC W Auto Differential panel - Blood CBC auto differential Lab Routine Chronic anemia Expected: 04/30/2024 (Approximate), Expires: 04/30/2025 [facility] [employer] Work Phone: Comment on above: Expected: 04/30/2024 (Approximate), Expi res: 04/30/2025 Start: 04-30-2024 End: 04-30-2025 Cobalamin (Vitamin B12) [Mass/volume] in Serum or Plasma Vitamin B12 Lab Routine Chronic anemia Expected: 04/30/2024 (Approximate), Expires: 04/30/2025 [facility] Comment on above: Expected: 04/30/2024 (Approximate), Expi res: 04/30/2025 Start: 04-30-2024 End: 04-30-2025 Comprehensive metabolic 1998 panel - Serum or Plasma Comprehensive metabolic panel Lab Routine Chronic anemia Expected: 04/30/2024 (Approximate), Expires: 04/30/2025 [facility] Comment on above: Expected: 04/30/2024 (Approximate), Expi res: 04/30/2025 Start: 04-30-2024 End: 04-30-2025 Iron and Iron binding capacity panel - Serum or Plasma Iron level Lab Routine Chronic anemia Expected: 04/30/2024 (Approximate), Expires: 04/30/2025 [facility] Comment on above: Expected: 04/30/2024 (Approximate), Expi res: 04/30/2025 Start: 04-24-2024 End: 04-24-2024 Patient encounter procedure 04/24/2024 1:30 PM EDT Office Visit [facility] [address] [place] [phone] Conner Quintero MD [address] [facility] [address] [place] [address] [facility] Start: 04-23-2024 End: 04-23-2024 Patient encounter procedure 04/23/2024 11:00 AM EDT Office Visit [facility] [address] [place] [phone] Dany Healy DO [address] [place] [address] [facility] Start: 04-09-2024 End: 04-09-2024 Patient encounter procedure 04/09/2024 9:00 AM EDT Office Visit [facility] [address] [place] [phone] Breanna Tolliver MD [address] [place] [address] [facility] Start: 04-08-2024 End: 04-08-2024 Admission to same day surgery center 04/08/2024 2:00 PM EDT - 04/08/2024 5:00 PM EDT Surgery [facility] MAIN OR [address] [facility] [place] [phone] Conner Quintero MD [address] [place] [id number] ROBOTIC RIGHT RADICAL NEPHRECTOMY [08732 (CPT )] [facility] OR Comment on above: ROBOTIC RIGHT RADICAL NEPHRECTOMY [78627 (CPT )] Start: 04-08-2024 End: 04-08-2024 Laparoscopy radical nephrectomy ROBOTIC (XI) LAPAROSCOPIC RADICAL NEPHRECTOMY Other specified disorders of kidney and ureter 04/08/2024 2:00 PM EDT [facility] Operating Room Start: 04-08-2024 Subsequent hospital visit by physician 04/08/2024 2:00 PM EDT Hospital Encounter [facility] MA[facility] OR [address] [facility] [place] [phone] Conner Quintero MD [address] [place] [address] [facility] OR Start: 04-08-2024 End: 04-08-2024 Patient encounter procedure 04/08/2024 1:40 PM EDT Office Visit [facility] Medicine [address] [place] [address] Shawanda Costa MD [address] [place] [address] [facility] Start: 04-01-2024 End: 04-01-2024 Admission to establishment 04/01/2024 2:30 PM EDT Pre-Admission Testing [facility] Pre-Admit Testing [address] [place] [phone] [facility] Pre-Admit Testing Start: 02-28-2024 End: 02-28-2024 Telemedicine consultation with patient 02/28/2024 1:00 PM EDT Telemedicine [facility] [address] [place] [address] Conner Quintero MD [address] [place], [place] [phone] [facility] Start: 02-27-2024 Depression Monitoring Depression Monitoring [facility] Start: 02-27-2024 Depresssion Monitoring Depresssion Monitoring [facility] Start: 01-25-2024 End: 07-26-2024 US Retroperitoneum limited US retroperitoneum limited Imaging Routine Renal mass Expected: 01/25/2024, Expires: 07/26/2024 [facility] Work Phone: Comment on above: Expected: 01/25/2024, Expires: Start: 01-24-2024 End: 01-24-2024 Patient encounter procedure [facility] Start: 01-23-2024 End: 01-23-2024 Clinical Support 01/23/2024 11:20 AM EDT Clinical Support [facility] [address] [place] [address] [facility] Start: 01-16-2024 End: 01-16-2024 Patient encounter procedure 01/16/2024 12:30 PM EDT Appointment [facility] [address] [place] [phone] Conner Quintero MD [address] [place] [address] [facility] Start: 01-16-2024 Subsequent hospital visit by physician 01/16/2024 12:30 PM EDT Hospital Encounter [facility] [address] [place] [phone] Conner Quintero MD [address] [place] [address] [facility] Start: 12-26-2023 End: 12-25-2024 CBC W Auto Differential panel - Blood CBC auto differential Lab Routine Arthralgia of hand, unspecified laterality Expected: 12/26/2023 (Approximate), Expires: 12/25/2024 [facility] [employer] Comment on above: Expected: 12/26/2023 (Approximate), Expi res: 12/25/2024 Start: 12-26-2023 End: 12-25-2024 Comprehensive metabolic 1998 panel - Serum or Plasma Comprehensive metabolic panel Lab Routine Arthralgia of hand, unspecified laterality Expected: 12/26/2023 (Approximate), Expires: 12/25/2024 [facility] [employer] Comment on above: Expected: 12/26/2023 (Approximate), Expi res: 12/25/2024 Start: 12-26-2023 End: 12-25-2024 Erythrocyte sedimentation rate Sedimentation rate, automated Lab Routine Arthralgia of hand, unspecified laterality Expected: 12/26/2023 (Approximate), Expires: 12/25/2024 [facility] [employer] Comment on above: Expected: 12/26/2023 (Approximate), Expi res: 12/25/2024 Start: 12-26-2023 End: 12-25-2024 Nuclear Ab [Titer] in Serum by Immunofluorescence JOSE Lab Routine Arthralgia of hand, unspecified laterality Expected: 12/26/2023 (Approximate), Expires: 12/25/2024 [facility] [employer] Work Phone: Comment on above: Expected: 12/26/2023 (Approximate), Expi res: 12/25/2024 Start: 12-26-2023 End: 03-12-2025 Rheumatoid factor [Units/volume] in Serum or Plasma Rheumatoid factor Lab Routine Arthralgia of hand, unspecified laterality Expected: 12/26/2023 (Approximate), Expires: 12/25/2024 [facility] Comment on above: Expected: 12/26/2023 (Approximate), Expi res: 12/25/2024 Start: 12-26-2023 End: 12-26-2023 Patient encounter procedure 12/26/2023 1:40 PM EDT Office Visit [facility] Medicine [address] [place] [phone] Shawanda Costa MD [address] [place], [place] [phone] [facility] Medicine Start: 12-25-2023 End: 12-25-2023 Patient encounter procedure 12/25/2023 10:00 AM EDT Office Visit [facility] [address] [facility] [address] [place] [phone] Breanna Tolliver MD [address] [place] [address] [facility] Start: 11-16-2023 Depresssion Monitoring Depresssion Monitoring [facility] Start: 09-20-2023 End: 09-20-2023 Patient encounter procedure 09/20/2023 12:00 PM EST Office Visit [facility] [address] [facility] [address] [place] [phone] Breanna Tolliver MD [address] [place] [address] [facility] Start: 09-11-2023 End: 09-11-2023 Follow-up encounter 09/11/2023 1:00 PM EST Follow-Up [facility] at [address] [place] [address] Gem Schilling, PT [facility] Therapy at [facility] Start: 09-06-2023 End: 09-06-2023 ambulatory [facility] Therapy at [facility] Start: 09-04-2023 End: 09-04-2023 Follow-up encounter [facility] Therapy at [facility] Start: 08-30-2023 End: 08-30-2023 Follow-up encounter [facility] Therapy at [facility] Start: 08-29-2023 End: 08-29-2023 Patient encounter procedure [facility] Medical [facility] Family Medicine Start: 08-28-2023 End: 08-28-2023 Follow-up encounter [facility] Therapy at [facility] Start: 08-23-2023 End: 08-23-2023 Follow-up encounter [facility] Therapy at [facility] Start: 08-21-2023 End: 08-21-2023 Follow-up encounter [facility] Therapy at [facility] Start: 08-16-2023 End: 08-16-2023 Follow-up encounter [facility] Therapy at [facility] Start: 08-14-2023 End: 08-14-2023 Follow-up encounter 08/14/2023 10:30 AM EDT Follow-Up [facility] Therapy at [address] [place] [address] Milana Hussein, SIMÓN [address] [place] [address] Scott Grider PTA [facility] Therapy at [facility] Start: 08-11-2023 End: 08-11-2023 Follow-up encounter 08/11/2023 10:00 AM EDT Follow-Up [facility] Therapy at [address] [place] [address] Scott Grider PTA [facility] Therapy at [facility] Start: 08-08-2023 End: 08-08-2023 ambulatory 08/08/2023 8:30 AM EDT Evaluation [facility] Therapy at [address] [place] [phone] Milana Hussein, SIMÓN [address] [facility] [address] [place] [address] Gem Schilling, PT [facility] Therapy at [facility] Start: 07-26-2023 End: 07-26-2023 Patient encounter procedure [facility] Start: 07-21-2023 End: 07-21-2023 Patient encounter procedure 07/21/2023 11:45 AM EDT Appointment [facility] MRI [address] [place] [phone] Conner Quintero MD [address] [place] [address] [facility] MRI Start: 07-19-2023 End: 07-19-2023 Patient encounter procedure [facility] Start: 07-19-2023 End: 07-19-2023 Patient encounter procedure 07/19/2023 8:30 AM EDT Appointment [facility] MRI [address] [place] [phone] Conner Quintero MD [address] [place] [address] [facility] MRI Start: 07-17-2023 End: 07-17-2023 Patient encounter procedure [facility] MRI Start: 07-07-2023 End: 07-07-2024 CBC W Auto Differential panel - Blood CBC auto differential Lab Routine Chronic anemia Expected: 07/07/2023 (Approximate), Expires: 07/07/2024 [facility] [employer] Comment on above: Expected: 07/07/2023 (Approximate), Expi res: 07/07/2024 Start: 07-07-2023 End: 07-07-2024 Cobalamin (Vitamin B12) [Mass/volume] in Serum or Plasma Vitamin B12 Lab Routine Chronic anemia Expected: 07/07/2023 (Approximate), Expires: 07/07/2024 [facility] Comment on above: Expected: 07/07/2023 (Approximate), Expi res: 07/07/2024 Start: 07-07-2023 End: 07-07-2024 Comprehensive metabolic 1998 panel - Serum or Plasma Comprehensive metabolic panel Lab Routine Screening, lipid Expected: 07/07/2023 (Approximate), Expires: 07/07/2024 [facility] Comment on above: Expected: 07/07/2023 (Approximate), Expi res: 07/07/2024 Start: 07-07-2023 End: 07-07-2024 Iron and Iron binding capacity panel - Serum or Plasma Iron level Lab Routine Chronic anemia Expected: 07/07/2023 (Approximate), Expires: 07/07/2024 [facility] Comment on above: Expected: 07/07/2023 (Approximate), Expi res: 07/07/2024 Start: 07-07-2023 End: 07-07-2024 Lipid 1996 panel - Serum or Plasma Lipid panel Lab Routine Screening, lipid Expected: 07/07/2023 (Approximate), Expires: 07/07/2024 [facility] System Work Phone: Comment on above: Expected: 07/07/2023 (Approximate), Expi res: 07/07/2024 Start: 07-07-2023 End: 07-07-2023 Patient encounter procedure [facility] Start: 06-28-2023 End: 06-28-2023 Patient encounter procedure [facility] Start: 06-16-2023 COVID-19 Vaccine ( season) COVID-19 Vaccine () [facility] Start: 06-16-2023 Influenza vaccination [facility] Start: 06-14-2023 End: 06-14-2023 Patient encounter procedure 06/14/2023 1:40 PM EDT Office Visit [facility] [address] [place] [phone] Shawanda Costa MD [address] [place] [phone] [facility] Start: 06-04-2023 End: 05-04-2024 XR Abdomen Single view XR abdomen 1 view Imaging Routine Renal calculus Expected: 06/04/2023, Expires: 05/04/2024 [facility] Work Phone: Comment on above: Expected: 06/04/2023, Expires: Start: 05-30-2023 End: 05-30-2023 Patient encounter procedure 05/30/2023 2:40 PM EDT Office Visit [facility] Pulmonary and Sleep Medicine [address] [place] [phone] Antonietta Mcgill, FINISHING MACHINE TENDER - MEMORIAL COUNSELOR [address] [place] [address] [facility] Start: 05-27-2023 Depression Monitoring Depression Monitoring [facility] Start: 05-22-2023 End: 05-22-2024 XR Abdomen Single view [facility] [employer] [facility] Work Phone: Comment on above: Once for 1 Occurrences starting 05/22/20 until 05/22/2023 Expected: 05/22/2023 , Expires: 05/22/2024 Start: 05-22-2023 End: 05-22-2023 Patient encounter procedure [facility] urrutia CT Start: 05-22-2023 Subsequent hospital visit by physician 05/22/2023 1:45 PM EDT Hospital Encounter [facility] CT [address] [place] [address] Shawanda Costa MD [address] [place] [phone] [facility] [address] Start: 05-18-2023 Screening for malignant neoplasm of lung Lung Cancer Screening [facility] Start: 05-04-2023 End: 05-04-2023 Patient encounter procedure [facility] Start: 04-10-2023 End: 04-10-2023 Patient encounter procedure [facility] Start: 04-04-2023 End: 04-04-2023 Cysto bladder w/ureteral catheterization CYSTOSCOPY AND PYELOGRAM Calculus of kidney 04/04/2023 12:56 PM EDT [facility] Operating Room Start: 04-04-2023 End: 04-04-2023 Cysto w/insert ureteral stent CYSTOSCOPY WITH INSERTION URETERAL STENT Calculus of kidney 04/04/2023 12:56 PM EDT [facility] Operating Room Start: 04-04-2023 End: 04-04-2023 Cysto w/ureteroscopy w/lithotripsy CYSTOSCOPY WITH URETEROSCOPY AND OR PYELOSCOPY WITH REMOVAL OR MANIPULATION CALCULUS WITH LITHOTRIPSY Calculus of kidney 04/04/2023 12:56 PM EDT [facility] Operating Room Start: 04-04-2023 End: 04-04-2023 Admission to same day surgery center 04/04/2023 11:30 AM EDT - 04/04/2023 12:30 PM EDT Surgery [facility] MAIN OR [address] [place] [phone] Igor Subramanian MD [address] [facility] [address] [place] [address] CYSTOSCOPY AND PYELOGRAM, LEFT URETEROSCOPY, HOLMIUM LASER LITHOTRIPSY, LEFT URETERAL STENT CHANGE [11343 (CPT )] [facility] MAIN OR Comment on above: CYSTOSCOPY AND PYELOGRAM, LEFT URETEROSC OPY, HOLMIUM LASER LITHOTRIPSY, LEFT URETERAL STENT CHANGE [43662 (CPT )] Start: 04-04-2023 End: 04-04-2023 Anesthesia consultation 04/04/2023 11:30 AM EDT Anesthesia Event [facility] MAIN OR [address] [place] [phone] Surekha Esquivel PA [address] [address] [facility] MAIN OR Start: 04-04-2023 End: 04-04-2023 Cysto bladder w/ureteral catheterization CYSTOSCOPY AND PYELOGRAM Calculus of kidney 04/04/2023 11:30 AM EDT [facility] Operating Room Start: 04-04-2023 End: 04-04-2023 Cysto w/insert ureteral stent CYSTOSCOPY WITH INSERTION URETERAL STENT Calculus of kidney 04/04/2023 11:30 AM EDT [facility] Operating Room Start: 04-04-2023 End: 04-04-2023 Cysto w/ureteroscopy w/lithotripsy CYSTOSCOPY WITH URETEROSCOPY AND OR PYELOSCOPY WITH REMOVAL OR MANIPULATION CALCULUS WITH LITHOTRIPSY Calculus of kidney 04/04/2023 11:30 AM EDT [facility] Operating Room Start: 04-04-2023 Subsequent hospital visit by physician 04/04/2023 11:30 AM EDT Hospital Encounter [facility] MAIN OR [address] [place] [address] Igor Subramanian MD [address] [place] [address] [facility] MAIN OR Start: 04-04-2023 End: 04-04-2023 Admission to same day surgery center [facility] MAIN OR Comment on above: CYSTOSCOPY AND PYELOGRAM, LEFT URETEROSC OPY, HOLMIUM LASER LITHOTRIPSY, LEFT URETERAL STENT CHANGE [76834 (CPT )] Start: 04-04-2023 End: 04-04-2023 Cysto bladder w/ureteral catheterization CYSTOSCOPY AND PYELOGRAM Calculus of kidney 04/04/2023 7:30 AM EDT [facility] Operating Room Start: 04-04-2023 End: 04-04-2023 Cysto w/insert ureteral stent CYSTOSCOPY WITH INSERTION URETERAL STENT Calculus of kidney 04/04/2023 7:30 AM EDT [facility] Operating Room Start: 04-04-2023 End: 04-04-2023 Cysto w/ureteroscopy w/lithotripsy CYSTOSCOPY WITH URETEROSCOPY AND OR PYELOSCOPY WITH REMOVAL OR MANIPULATION CALCULUS WITH LITHOTRIPSY Calculus of kidney 04/04/2023 7:30 AM EDT [facility] Operating Room Start: 04-04-2023 Subsequent hospital visit by physician [facility] MAIN OR Start: 03-28-2023 End: 03-28-[address] [facility] Pre-Admit Testing Start: 03-24-2023 Annual Wellness Visit (AWV) Annual Wellness Visit (AWV) [facility] Start: 03-23-2023 Depression Monitoring Depression Monitoring [facility] Start: 03-16-2023 Depression Monitoring Depression Monitoring [facility] Start: 02-27-2023 End: 02-27-2023 Patient encounter procedure 02/27/2023 Office Visit Family Medicine Syeda Calixto, FINISHING MACHINE TENDER - MEMORIAL COUNSELOR [address] [place] [phone] [facility] Start: 02-24-2023 End: 02-24-2023 Admission to same day surgery center 02/24/2023 Surgery Procedural Igor Subramanian MD [address] [place] [address] CYSTOSCOPY AND PYELOGRAM, LEFT URETEROSCOPY, HOLMIUM LASER LITHOTRIPSY, LEFT URETERAL STENT CHANGE [12835 (CPT )] [facility] MAIN OR Comment on above: CYSTOSCOPY AND PYELOGRAM, LEFT URETEROSC OPY, HOLMIUM LASER LITHOTRIPSY, LEFT URETERAL STENT CHANGE [61237 (CPT )] Start: 02-24-2023 End: 02-24-2023 Cysto bladder w/ureteral catheterization CYSTOSCOPY AND PYELOGRAM Calculus of kidney 02/24/2023 2:00 PM EDT [facility] Operating Room Start: 02-24-2023 End: 02-24-2023 Cysto w/insert ureteral stent CYSTOSCOPY WITH INSERTION URETERAL STENT Calculus of kidney 02/24/2023 2:00 PM EDT [facility] Operating Room Start: 02-24-2023 End: 02-24-2023 Cysto w/ureteroscopy w/lithotripsy CYSTOSCOPY WITH URETEROSCOPY AND OR PYELOSCOPY WITH REMOVAL OR MANIPULATION CALCULUS WITH LITHOTRIPSY Calculus of kidney 02/24/2023 2:00 PM EDT [facility] Operating Room Start: 02-24-2023 Subsequent hospital visit by physician 02/24/2023 Hospital Encounter Procedural Igor Subramanian MD [address] [place] [address] [facility] MAIN OR Start: 02-14-2023 End: 02-14-2023 ambulatory 02/14/2023 Evaluation Physical Therapy Milana Hussein, SIMÓN [address] [facility] [address] [place] [address] Adelaida Prince, PT [facility] Therapy at [facility] Start: 01-31-2023 End: 01-31-2023 Patient encounter procedure [facility] Start: 01-25-2023 End: 01-25-2023 Patient encounter procedure 01/25/2023 Office Visit Urology Conner Quintero MD [address] [place] [address] [facility] Start: 01-24-2023 End: 01-25-2024 Home sleep test Home sleep test Sleep Center Routine WAYNE (obstructive sleep apnea) Expected: 01/24/2023 (Approximate), Expires: 01/25/2024 [facility] [employer] [facility] Work Phone: Comment on above: Expected: 01/24/2023 (Approximate), Expi res: 01/25/2024 Start: 01-24-2023 End: 01-24-2023 Patient encounter procedure 01/24/2023 Office Visit Neurology Breanna Tolliver MD [address] [place] [address] [place], [place] [phone] [facility] Start: 01-16-2023 End: 01-16-2023 Patient encounter procedure [facility] Start: 01-02-2023 End: 01-03-2024 XR Thoracic spine 3 Views [facility] [employer] [facility] [employer] Work Phone: Comment on above: Expected: 01/02/2023, Expires: 4 Once for 1 Occurrenc es starting 01/02/2023 until 01/02/2023 Start: 01-02-2023 End: 01-02-2023 Patient encounter procedure 01/02/2023 Office Visit Family Medicine Shawanda Costa MD [address] [place] [address] [facility] Start: 11-27-2022 Depresssion Monitoring Depresssion Monitoring [facility] Start: 10-31-2022 End: 10-31-2023 CBC W Auto Differential panel - Blood CBC auto differential Lab Routine Coarse tremors Expected: 10/31/2022 (Approximate), Expires: 10/31/2023 [facility] [employer] Comment on above: Expected: 10/31/2022 (Approximate), Expi res: 10/31/2023 Start: 10-31-2022 End: 10-31-2023 Comprehensive metabolic 1998 panel - Serum or Plasma Comprehensive metabolic panel Lab Routine Coarse tremors Expected: 10/31/2022 (Approximate), Expires: 10/31/2023 [facility] [employer] Comment on above: Expected: 10/31/2022 (Approximate), Expi res: 10/31/2023 Start: 10-31-2022 End: 10-31-2023 Thyrotropin [Units/volume] in Serum or Plasma TSH Lab Routine Coarse tremors Expected: 10/31/2022 (Approximate), Expires: 10/31/2023 [facility] [employer] Comment on above: Expected: 10/31/2022 (Approximate), Expi res: 10/31/2023 Start: 10-31-2022 End: 10-31-2022 Telemedicine consultation with patient 10/31/2022 Telemedicine Family Medicine Shawanda Costa MD [address] [phone] [facility] Start: 10-19-2022 End: 10-19-2022 Patient encounter procedure 10/19/2022 Office Visit Cardiology Angelica Velázquez MD [address] [place] [address] [place] [phone] [facility] Start: 10-18-2022 Screening for malignant neoplasm of lung Low dose CT lung screening [facility] Start: 10-03-2022 End: 10-03-2022 Patient encounter procedure 10/03/2022 Office Visit Family Medicine Shawanda Costa MD [address] [place], [place] [phone] [facility] Start: 09-16-2022 Creatinine measurement Creatinine monitoring [facility] Start: 09-16-2022 Potassium monitoring Potassium monitoring [facility] Start: 07-31-2022 End: 07-31-2023 CT Chest for screening WO contrast CT lung screening low dose Imaging Routine Personal history of nicotine dependence Expected: 07/31/2022, Expires: 07/31/2023 [facility] [employer] [facility] Work Phone: Comment on above: Expected: 07/31/2022, Expires: 3 Start: 07-30-2022 End: 07-30-2023 US Kidney US renal complete Imaging Routine Other specified disorders of kidney and ureter Expected: 07/30/2022, Expires: 07/30/2023 [facility] [employer] [facility] Work Phone: Comment on above: Expected: 07/30/2022, Expires: 3 Start: 07-27-2022 End: 07-27-2022 Patient encounter procedure 07/27/2022 Office Visit Urology Conner Quintero MD [address] [place] [address] [facility] [place] Start: 07-18-2022 End: 07-18-2022 Patient encounter procedure [facility] Start: 06-28-2022 End: 06-28-2022 Patient encounter procedure 06/28/2022 Office Visit Family Medicine Shawanda Costa MD [address] [place] [id number] [facility] Family [facility] Start: 06-16-2022 Influenza vaccination [facility] Start: 05-27-2022 End: 05-27-2022 Patient encounter procedure 05/27/2022 Office Visit Pulmonology Antonietta Mcgill APRN - MEMORIAL COUNSELOR [address] [place] [address] [facility] Start: 05-17-2022 Creatinine measurement Creatinine monitoring [facility] Work Phone: Start: 05-17-2022 Potassium monitoring Potassium monitoring [facility] Work Phone: Start: 05-16-2022 Influenza vaccination Flu vaccine (#1) [facility] Start: 05-16-2022 End: 05-16-2022 Patient encounter procedure 05/16/2022 Appointment Radiology Antonietta Mcgill, FINISHING MACHINE TENDER - MEMORIAL COUNSELOR [address] [facility] [address] [place] [address] [facility] Start: 03-23-2022 End: 03-23-2022 Patient encounter procedure 03/23/2022 Office Visit Family Medicine Shawanda Costa MD [address] [place], [place] [phone] [facility] Start: 12-21-2021 End: 12-21-2021 Patient encounter procedure 12/21/2021 Office Visit Family Medicine Sahwanda Costa MD [address] [place] [address] [facility] Start: 12-01-2021 COVID-19 Vaccine (4 - Booster for Moderna series) COVID-19 Vaccine (4 - Booster for Moderna series) [facility] Start: 12-01-2021 COVID-19 Vaccine (4 - Moderna series) COVID-19 Vaccine (4 - Moderna series) [facility] Start: 11-15-2021 End: 11-15-2021 Patient encounter procedure 11/15/2021 Appointment MRI Mely Galicia, FINISHING MACHINE TENDER - MEMORIAL COUNSELOR [address] [facility] [address] [place] [address] [facility] Start: 10-26-2021 End: 10-26-2021 Patient encounter procedure 10/26/2021 Office Visit Cardiology Lydia Trejo, FINISHING MACHINE TENDER - MEMORIAL COUNSELOR [address] [facility] [address] [place] [phone] [facility] Start: 10-19-2021 End: 10-19-2021 Patient encounter procedure 10/19/2021 Appointment Echocardiography Chris Sandoval MD [address] [place], [place] [phone] [facility] Start: 09-20-2021 End: 09-20-2021 Patient encounter procedure 09/20/2021 Office Visit Cardiology Chris Sandoval MD [address] [place], [place] [phone] [facility] Start: 09-04-2021 Annual Wellness Visit (AWV) Annual Wellness Visit (AWV) [facility] Start: 09-01-2021 Annual Wellness Visit (AWV) Annual Wellness Visit (AWV) [facility] Start: 08-28-2021 Creatinine measurement [facility] Start: 08-28-2021 Screening [facility] malignant neoplasm of colon [facility] Start: 08-17-2021 End: 08-17-2021 Patient encounter procedure 08/17/2021 Office Visit Family Medicine Shawanda Costa MD [address] [place] [id number] [facility] Start: 07-06-2021 End: 07-06-2021 Patient encounter procedure 07/06/2021 Office Visit Family Medicine Shawanda Costa MD [address] [place] [id number] [facility] Start: 06-16-2021 Influenza vaccination Flu vaccine (#1) [facility] Work Phone: Start: 06-03-2021 Pneumococcal 65+ years Vaccine (2 of 2 - PPSV23) Pneumococcal 65+ years Vaccine (2 of 2 - PPSV23) [facility] [place] Start: 02-19-2021 Creatinine measurement Creatinine monitoring [employer], [place] Start: 02-19-2021 Potassium monitoring Potassium monitoring [facility] [place], [place] Start: 12-29-2020 End: 12-29-2020 Office Visit 12/29/2020 Office Visit Family Medicine Shawanda Costa MD [address] [place], [place] [phone] [facility] Start: 09-28-2020 End: 09-28-2020 Virtual Visit 09/28/2020 Virtual Visit Gastroenterology Fab Porter PA-C [address] [place] [address] [phone] [facility] Start: 08-31-2020 End: 08-31-2020 Office Visit 08/31/2020 Office Visit Family Medicine Shawanda Costa MD [address] [place], [place] [phone] [facility] Start: 08-28-2020 Hospital Encounter 08/28/2020 Hospital Encounter Radiology Fab Porter PA-C [address] [place] [address] [phone] [facility] Start: 06-16-2020 Influenza vaccination Flu vaccine (#1) [place], [place] Start: 02-18-2020 DTaP/Tdap/Td Vaccines (2 - Td or Tdap) DTaP/Tdap/Td Vaccines (2 - Td or Tdap) [facility] Start: 11-28-2019 Annual Wellness Visit (AWV) Annual Wellness Visit (AWV) [place] Start: 12-24-2012 Shingles Vaccine (2 of 3) Shingles Vaccine (2 of 3) [facility] Start: 12-24-2012 Zoster Vaccines (2 of 3) Zoster Vaccines (2 of 3) [facility] Start: 2011 Hepatitis B Vaccines (1 of 3 - Risk 3-dose series) Hepatitis B Vaccines (1 of 3 - Risk 3-dose series) [facility] Start: 2011 RSV Immunization aged 60 or older (1 - 1-dose 60+ series) RSV Immunization aged 60 or older (1 - 1-dose 60+ series) [facility] Start: 2011 RSV Immunization for Adults (1 - Risk 60-74 years 1-dose series) RSV Immunization for Adults (1 - Risk 60-74 years 1-dose series) [facility] Start: 2001 Screening for malignant neoplasm of colon Colon cancer screen colonoscopy [place], [place] Start: 2001 Screening for malignant neoplasm of lung Low dose CT lung screening [facility] Start: 2001 Shingles Vaccine (1 of 2) Shingles Vaccine (1 of 2) [place] Start: 2001 Zoster Vaccines (1 of 2) Zoster Vaccines (1 of 2) [facility] Start: 01-16-1997 Hepatitis A Vaccines (2 of 2 - Risk 2-dose series) Hepatitis A Vaccines (2 of 2 - Risk 2-dose series) [facility] Start: 1996 Screening for malignant neoplasm of colon [facility] Start: 1986 Diabetes screen Diabetes screen [facility] Start: 09-13-1973 IPV Vaccines (2 of 3 - Adult catch-up series) IPV Vaccines (2 of 3 - Adult catch-up series) [facility] Start: 1970 DTaP/Tdap/Td vaccine (1 - Tdap) DTaP/Tdap/Td vaccine (1 - Tdap) [place] Start: 1970 Hepatitis A Vaccines (1 of 2 - Risk 2-dose series) Hepatitis A Vaccines (1 of 2 - Risk 2-dose series) [facility] Start: 1969 Diabetes mellitus screening Diabetes Screening [facility] Start: 1963 COVID-19 Vaccine (1) COVID-19 Vaccine (1) [facility] Work Phone: Start: 1963 Depression Monitoring Depression Monitoring [facility] Start: 1956 COVID-19 Vaccine (1) COVID-19 Vaccine (1) [facility] Start: 1952 Hepatitis A Vaccines (1 of 2 - Risk 2-dose series) Hepatitis A Vaccines (1 of 2 - Risk 2-dose series) [facility] Start: 01-23-1952 COVID-19 Vaccine (#1) COVID-19 Vaccine (#1) [facility] Start: 1951 Abdominal aortic aneurysm screening AAA screen [place], [place] Start: 1951 Hepatitis C screening Hepatitis C screen [facility] [employer] [facility] Start: 1950 Medicare Annual Wellness (AWV) Medicare Annual Wellness (AWV) [employer] Start: 1950 Screening for malignant neoplasm of colon [facility] [employer] End: 08-25-2020 Czufb-2-Aliivovsbcu Nfomt-4-Epwoaodhkuo Lab Routine Hepatomegaly Fatty liver 1 Occurrences starting 08/25/2020 until 08/25/2020 [facility] Comment on above: 1 Occurrences starting 08/25/2020 until 08/25/2020 Adacc-7-Byasqpynxaz Hmynw-7-Ojxh trypsin Lab Routine Hepatomegaly Fatty liver 08/25/2020 11:55 AM [facility] [place] End: 08-25-2020 Anti-Mitochondrial Titer Anti-Mitochondrial Titer Lab Routine Hepatomegaly Fatty liver 1 Occurrences starting 08/25/2020 until 08/25/2020 [facility] [place] Comment on above: 1 Occurrences starting 08/25/2020 until 08/25/2020 Anti-Mitochondrial Titer Anti-Mi tochondrial Titer Lab Routine Hepatomegaly Fatty liver 08/25/2020 11:55 AM [facility] [employer] [place] End: 08-25-2020 Anti-smooth muscle antibody Anti-smooth muscle antibody Lab Routine Hepatomegaly Fatty liver 1 Occurrences starting 08/25/2020 until 08/25/2020 [facility] [place] Comment on above: 1 Occurrences starting 08/25/2020 until 08/25/2020 Anti-smooth muscle antibody Anti -smooth muscle antibody Lab Routine Hepatomegaly Fatty liver 08/25/2020 11:55 AM [facility] [place] Bacteria identified in Blood by Culture Blood culture #2 - Suspected Infection Microbiology STAT 02/11/2023 11:41 AM EDT [employer] Work Phone: Cologuard colon canc er screening [facility] colon cancer screening Lab Routine Screening for colon cancer Ordered: 10/31/2022 [employer] Work Phone: Comment on above: Ordered: 10/31/2022 End: 08-28-2020 CT Abdomen Pelvis W IV and Oral Contrast CT Abdomen Pelvis W IV and Oral Contrast Imaging Routine Hepatomegaly Liver cyst Fatty liver 1 Occurrences starting 08/28/2020 until 08/28/2020 [place], [place] Comment on above: 1 Occurrences starting 08/28/2020 until 08/28/2020 End: 05-22-2023 CT Chest for screening WO contrast [employer] Work Phone: Comment on above: Once for 1 Occurrences starting 05/22/20 23 until 05/22/2023 End: 05-28-2024 CT Chest for screening WO contrast [employer] Work Phone: Comment on above: Once for 1 Occurrences starting 05/28/20 24 until 05/28/2024 End: 05-16-2022 CT Chest WO [employer] Work Phone: Comment on above: 1 Occurrences starting 05/16/2022 until 05/16/2022 End: 08-25-2020 Hepatitis A Antibody, Total Hepatitis A Antibody, Total Lab Routine Hepatomegaly Fatty liver 1 Occurrences starting 08/25/2020 until 08/25/2020 [place] Comment on above: 1 Occurrences starting 08/25/2020 until 08/25/2020 Hepatitis A Antibody, Total Hepa titis A Antibody, Total Lab Routine Hepatomegaly Fatty liver 08/25/2020 11:55 AM [place], [place] End: 08-25-2020 Hepatitis B Core Antibody, Total Hepatitis B Core Antibody, Total Lab Routine Hepatomegaly Need for hepatitis B screening test Fatty liver 1 Occurrences starting 08/25/2020 until 08/25/2020 [place] Comment on above: 1 Occurrences starting 08/25/2020 until 08/25/2020 Hepatitis B Core Ant ibody, Total Hepatitis B Core Antibody, Total Lab Routine Hepatomegaly Need for hepatitis B screening test Fatty liver 08/25/2020 11:55 AM [place] End: 08-25-2020 Liver Fibrosis, Chronic Viral Hepatitis Liver Fibrosis, Chronic Viral Hepatitis Lab Routine Once for 1 Occurrences starting 08/25/2020 until 08/25/2020 [place] Comment on above: Once for 1 Occurrences starting 08/25/20 20 until 08/25/2020 Liver Fibrosis, Security Delivery Specialist douglas Viral Hepatitis Liver Fibrosis, Chronic Viral Hepatitis Lab Routine 08/25/2020 11:55 AM [facility] [place] End: 07-21-2023 MR Abdomen WO and W contrast IV [employer] Work Phone: Comment on above: Once for 1 Occurrences starting 07/21/20 23 until 07/21/2023 Nuclear Ab [Titer] i n Serum by Immunofluorescence JOSE Lab Routine Arthralgia of hand, unspecified laterality 12/28/2023 9:17 AM EDT [employer] OUTSIDE PROCEDURE SCAN OUTSIDE P ROCEDURE SCAN Procedures Ordered: 01/02/2023 [facility] [employer] [facility] Comment on above: Ordered: 01/02/2023 OUTSIDE PROCEDURE SCAN OUTSIDE P ROCEDURE SCAN Procedures Ordered: 05/22/2023 [facility] [employer] [facility] Comment on above: Ordered: 05/22/2023 OUTSIDE PROCEDURE SCAN OUTSIDE P ROCEDURE SCAN Procedures Ordered: 05/19/2023 [facility] on above: Ordered: 05/19/2023 OUTSIDE PROCEDURE SCAN OUTSIDE P ROCEDURE SCAN Procedures Ordered: 01/15/2024 [facility] [employer] Comment on above: Ordered: 01/15/2024 OUTSIDE PROCEDURE SCAN OUTSIDE P ROCEDURE SCAN Procedures Ordered: 12/29/2022 [facility] Comment on above: Ordered: 12/29/2022 Tissue exam [employer] Work Phone: Comment on above: Release Upon Ordering for 1 Occurrences starting 04/08/2024 Tissue exam [employer] Work Phone: Comment on above: Release Upon Ordering for 1 Occurrences starting 02/28/2025, 1 completed End: 08-25-2020 Tissue Transglutaminase, IgA Tissue Transglutaminase, IgA Lab Routine Hepatomegaly Fatty liver 1 Occurrences starting 08/25/2020 until 08/25/2020 [employer] Comment on above: 1 Occurrences starting 08/25/2020 until 08/25/2020 Tissue Transglutaminase, IgA Tis elijah Transglutaminase, IgA Lab Routine Hepatomegaly Fatty liver 08/25/2020 11:55 AM EST [employer] End: 01-16-2024 US Retroperitoneum limited [employer] Work Phone: Comment on above: Once for 1 Occurrences starting 01/16/20 24 until 01/16/2024 Immunizations Immunization Date Immunization Notes Care Provider Fatmata camacho 07-07-2023 influenza, high dose seasonal, preservative-free Shawanda Costa MD Work Phone: [facility] 07-07-2023 influenza virus vacc ine, unspecified formulation Ananya Montana RN [facility] 09-21-2021 Influenza, High-dose , Quadv, 65 yrs +, IM (Fluzone) Shawanda Costa MD Work Phone: [facility] 09-21-2021 pneumococcal polysaccharide vaccine, 23 valent Shawanda Costa MD Work Phone: [facility] Work Phone: 09-21-2021 influenza virus vacc ine, unspecified formulation Shawanda Costa MD Work Phone: [facility] 08-11-2020 Influenza, High-dose Seasonal, Quadrivalent, Preservative Free Shawanda Costa MD Work Phone: [facility] 06-03-2020 pneumococcal conjuga te vaccine, 13 valent Shawanda Costa [facility] 01-21-2020 tetanus toxoid, redu erica diphtheria toxoid, and acellular pertussis vaccine, adsorbed Shawanda Costa MD Work Phone: [facility] 07-15-2019 Seasonal trivalent influenza vaccine, adjuvanted, preservative free Shawanda Costa MD Work Phone: [facility] 10-01-2014 Influenza, injectabl e, quadrivalent, preservative free Shawanda Costa MD Work Phone: [facility] 10-29-2012 influenza, seasonal, injectable, preservative free Shawanda Costa MD Work Phone: [facility] 10-29-2012 zoster vaccine, live Shawanda shelby MD Work Phone: [facility] 12-21-2007 pneumococcal polysaccharide vaccine, 23 valent Shawanda Costa MD Work Phone: [facility] 12-21-2007 tetanus toxoid, redu erica diphtheria toxoid, and acellular pertussis vaccine, adsorbed Shawanda Costa MD Work Phone: [facility] 11-19-1999 tuberculin skin test ; purified protein derivative solution, intradermal Shawanda Costa MD Work Phone: [facility] 08-18-1999 influenza virus vacc ine, whole virus Shawanda Costa MD Work Phone: [facility] 07-19-1999 anthrax vaccine Shawanda frias MD Work Phone: [facility] 01-19-1999 anthrax vaccine Shawanda frias MD Work Phone: [facility] 12-28-1998 anthrax vaccine Shawanda frias MD Work Phone: [facility] 12-14-1998 meningococcal polysaccharide vaccine (MPSV4) Shawanda Costa MD Work Phone: [facility] 12-14-1998 tuberculin skin test ; purified protein derivative solution, intradermal Shawanda Costa MD Work Phone: [facility] 12-14-1998 typhoid vaccine, parenteral, other than acetone-killed, dried Shawanda Costa MD Work Phone: [facility] 07-30-1997 influenza virus vacc ine, whole virus Shawanda Costa MD Work Phone: [facility] 07-18-1996 hepatitis A vaccine, adult dosage Shawanda Costa MD Work Phone: [facility] 07-18-1996 hepatitis A and hepatitis B vaccine Shawanda Costa MD Work Phone: [facility] 02-08-1990 tetanus and diphther ia toxoids, adsorbed, preservative free, for adult use (2 Lf of tetanus toxoid and 2 Lf of diphtheria toxoid) Shawanda Costa MD Work Phone: [facility] 02-08-1990 yellow fever vaccine Shawanda shelby MD Work Phone: [facility] 08-16-1973 trivalent poliovirus vaccine, live, oral Shawanda Costa MD Work Phone: [facility] 08-16-1973 poliovirus vaccine, unspecified formulation Shawanda Costa MD Work Phone: [facility] [employer] Payers Date Payer Category Payer Self-pay 2021 [employer] ( and others) 2021 For Life--Me dicare Supplement [id number] 2021 [employer] ( and others) [id number] 2020 [employer] ( and others) [id number] 2019 [employer] ( and others) [id number] 2016 Medicare 2016 Medicare [id number] 1951 Unknown [id number] 1951 Unknown [id number] 1951 Unknown [id number] 1951 Unknown [id number] 1951 Unknown [id number] 1951 Unknown [id number] 1951 Unknown [id number] 1951 Unknown [id number] 1951 Unknown [id number] 1951 Unknown [id number] 1951 Unknown [id number] Unknown [id number] Social History Date Type Detail Facility Start: 06-03-2020 End: 05-10-2024 Tobacco smoking status NHIS Former smoker [place] Start: 11-26-1984 End: 11-28-2008 History of tobacco use Current smoker [place] Start: 06-03-2020 End: 04-08-2024 Cigarettes smoked current (pack per day) - Reported [facility] Start: 06-03-2020 End: 05-10-2024 Tobacco use and exposure Never used [place], [place] Start: 06-03-2020 End: 03-03-2025 Alcohol intake Ex-drinker (finding) [facility] Y Sex Assigned At Not on file [place] Start: 06-18-2022 End: 07-07-2023 Exposure to SARS-CoV-2 (event) Not sure [place] Start: 1950 Sex Assigned At Male [place] Start: 03-16-2022 History SDOH Alcohol Frequency 1 [facility] Work Phone: Start: 03-16-2022 History SDOH Physical Activity DPW 4 [facility] Work Phone: Start: 03-16-2022 History SDOH Physical Activity MPS 3 [facility] Work Phone: Start: 11-26-1984 End: 11-28-2008 History of tobacco use Cigarette Smoker [facility] Work Phone: Start: 02-11-2023 History SDOH IPV Fear 2 [facility] Start: 03-07-2023 End: 07-19-2023 Tobacco Comment Current, daily use of nicotene pouches [facility] Start: 02-11-2023 End: 04-08-2024 Humiliation, Afraid, Rape, and Kick questionnaire [HARK] [facility] Within the last year , have you been afraid of your partner or ex-partner? No [facility] Start: 08-29-2022 Gender identity Identifies as male gender (finding) [facility] Start: 08-04-2022 Sexual orientation Heterosexual (finding) [facility] Start: 03-28-2023 End: 04-08-2024 Tobacco use and exposure User of smokeless tobacco [facility] Adolescent depressio n screening assessment 2 [facility] Start: 04-04-2023 Tobacco Comment Current, daily use of nicotine pouches- did not use today. [facility] Are you now , , , , never or living with a partner? [facility] How often to you hav e a drink containing alcohol? Never [facility] Do you feel stress - tense, restless, nervous, or anxious, or unable to sleep at night because your mind is troubled all the time - these days [OSQ] Only a little [facility] (I/We) worried wheth er (my/our) food would run out before (I/we) got money to buy more. Never true [facility] Start: 05-16-2022 Sex Male (finding) [facility] Tobacco smoking stat [facility] Tobacco smoking consumption unknown [facility] Medical Equipment Procedure Code Equipment Code Equipment Origin al Text Equipment Identifier Dates Stent Uret 6fr 2 6cm Wo Gw - [id number] Start: 02-12-2023 Clip Endo Resolu tion 360 235cm - [id number] , [id number] FDA Start: 02-28-2025 Clip Endo Resolu tion Ultra 235 - [id number] Start: 02-28-2025 Functional Status Date Assessment Result Facility 02-21-2025 Patient Health Quest ionnaire 2 item (PHQ-2) [Reported] [facility] 02-21-2025 Little interest or p natalia in doing things Not at all 02/21/2025 12:57 PM EDT Mychart, Generic Not at all [facility] 02-21-2025 Feeling down, depres sed, or hopeless Several days 02/21/2025 12:57 PM EDT Mychart, Generic Several days [facility] Clinical Notes 10-19-2022 to 03-20-2025 Telephone Encounter - Scott Toscano - 03/20/2025 8:13 AM EDTTelephone Encounter - Scottdelta Toscano - 03/20/2025 8:13 AM EDTBjakob Yeh MD - 02/28/2025 7:28 AM EDTPatient InstructionsAttachments Note Date & Type Note Facility 03-20-2025 Note Patient called and l vm for office to schedule follow up post procedure. Sent Deeplink message to advise. Marco [facility] 03-20-2025 Telephone encounter Note Patient called and lvm for office to schedule follow up post procedure. Sent [employer] message to advise. Marco [facility] 03-20-2025 Miscellaneous Notes Patient called and lvm for office to schedule follow up post procedure. Sent [employer] message to advise. Marco documented in this encounter [facility] 02-28-2025 Note Patient: Nery luevano Procedure Summary Date: 02/28/25 [facility] / [facility] Anesthesia Start: 727 Anesthesia Stop: 901 Procedures: ESOPHAGOGASTRODUODENOSCOPY, DIAGNOSTIC (Abdomen) COLONOSCOPY Diagnosis: Hemorrhage of anus and rectum Unspecified hemorrhoids Anemia, unspecified Providers: Mark Yeh MD Responsible Provider: Tad Muñoz MD Anesthesia Type: TIVA ASA Status: 3 Anesthesia Type: TIVA Vitals Value Taken Time BP 139/75 02/28/25 08:58 Temp 96.7 02/28/25 09:02 Pulse 65 02/28/25 08:58 Resp 16 02/28/25 08:58 SpO2 100 % 02/28/25 08:55 Anesthesia Post Evaluation Patient participation: complete - patient participated Level of consciousness: alert and awake Pain management: satisfactory to patient Multimodal analgesia pain management approach Airway patency: patent Two or more strategies used to mitigate risk of obstructive sleep apnea Respiratory status: acceptable Cardiovascular status: acceptable Hydration status: acceptable No notable events documented. MIPS #430 PONV Patient did not receive an inhalational anesthetic (XX430) MIPS # 424 Perioperative Temperature Management Anesthesia time was less than 60 minutes (4256F) MIPS #477 Multimodal Pain Management Not emergent case Patient was not administered multimodal pain management (G2149) Patient reports no pain in PACU (G2149) MIPS #404 Anesthesiology Smoking Abstinence The patient is not a current smoker (e.g. cigarette, cigar, pipe, e-cigarette/vaping/marijuana) If no stop here (XX404) I completed my handoff to the receiving clinician during which we: 1. Identified the patient 2. Identified the responsible provider 3. Reviewed the pertinent medical history 4. Discussed the surgical course 5. Reviewed intra-op anesthesia management and issues during anesthesia 6. Set expectations for post-procedure period 7. Allowed opportunity for questions and acknowledgement of understanding. [facility] 02-28-2025 Note Patient: Nery luevano Jr. Procedure Summary Date: 02/28/25 Room / [facility]: [facility] G[facility] Anesthesia Start: 727 Anesthesia Stop: 901 Procedures: ESOPHAGOGASTRODUODENOSCOPY, DIAGNOSTIC (Abdomen) COLONOSCOPY Diagnosis: Hemorrhage of anus and rectum Unspecified hemorrhoids Anemia, unspecified Providers: Mark Yeh MD Responsible Provider: Tad Muñoz MD Anesthesia Type: TIVA ASA Status: 3 Anesthesia Type: TIVA Vitals Value Taken Time BP 139/75 02/28/25 08:58 Temp 96.7 02/28/25 09:02 Pulse 65 02/28/25 08:58 Resp 02/28/25 08:58 SpO2 100 % 02/28/25 08:55 Anesthesia Post Evaluation Patient location during evaluation: PACU Patient participation: complete - patient participated Level of consciousness: awake and alert Pain management: satisfactory to patient Airway patency: patent Dental Injury: no Cardiovascular status: acceptable, blood pressure returned to baseline and hemodynamically stable Respiratory status: acceptable and spontaneous ventilation Hydration status: euvolemic Nausea/Vomiting: controlled No notable events documented. Patient can be discharged once all PACU criteria has been met. [facility] 02-28-2025 History and physical note Images from the original note were not included. GASTROENTEROLOGY PREPROCEDURE H&P 02/28/2025 Patient: Nery Rodriguez Jr. : 1950 Primary Care Physician: Shawanda Costa MD HISTORY OF PRESENT ILLNESS: Nery Rodriguez Jr. is a 74 y.o. male referred by Dr. Costa and Mohan Haskins CNP re: rectal bleeding. Patient reports intermittent rectal bleeding ongoing for years-previously attributed to hemorrhoids. Bleeding has changed over the past 9 months. Bleeding is with every bowel movement now, followed by stool leakage and pink tinged drainage. Has constipation at baseline-uses colace three times per week. Has BM when he takes colace. Notes if he uses daily, leakage worsens. [place] colon[place] ~ [place] Also endorses decreased appetite over the past year. Has chronic anemia, most recent hgb 12.9/hct 37.4 (08/26/2024). No prior EGD. REVIEW OF SYSTEMS: A complete 10 point review of systems was obtained. Please see the HPI for pertinent positives and negatives. All other systems reviewed were found to be negative or noncontributory. PAST MEDICAL HISTORY: Medical History[1] PAST SURGICAL HISTORY: Surgical History[2] SOCIAL HISTORY: TOBACCO: reports that he quit smoking about 16 years ago. His smoking use included cigarettes. He started smoking about 40 years ago. He has a 25 pack-year smoking history. He has never used smokeless tobacco. ETOH: reports that he does not currently use alcohol. DRUGS: reports no history of drug use. FAMILY HISTORY: Family History[3] MEDICATIONS: Prior to Admission medications Medication Sig Start Date End Date Taking? Authorizing Provider clonazePAM (KlonoPIN) 0.5 MG tablet Take 0.5 tablets (0.25 mg) by mouth Daily as needed for anxiety. 01/24/25 04/24/25 Yes Dany Healy, DO loratadine (Claritin) 10 MG tablet TAKE 1 TABLET (10 MG) BY MOUTH DAILY. 11/13/24 05/12/25 Yes Shawanda Costa MD PARoxetine (Paxil) 10 MG tablet Take 1 tablet (10 mg) by mouth every morning. 07/23/24 07/18/25 Yes Dany Healy DO polyethylene glycol, PEG, 3350 (MiraLax) 17 GM/SCOOP powder Take 17 g by mouth daily. 01/20/25 Yes Mohan Haskins APRN - LAWAN[facility] tamsulosin (Flomax) 0.4 MG 24 hr capsule TAKE 1 CAPSULE BY MOUTH EVERY DAY 11/13/24 Yes Shawanda Costa MD telmisartan (MIcarDIS) 20 MG tablet TAKE 1 TABLET BY MOUTH EVERY DAY 12/05/24 Yes Shawanda Costa MD carbidopa-levodopa (Sinemet) 25-100 MG tablet Take 1 tablet by mouth 3 times daily. 11/11/24 02/09/25 Breanna Tolliver MD gabapentin (Neurontin) 400 MG capsule Take 3 capsules (1,200 mg) by mouth Nightly. Do not start before May 15, 2024. 05/15/24 11/11/24 Breanna Tolliver MD propranolol LA (Inderal LA) 60 MG 24 hr capsule Take 1 capsule (60 mg) by mouth daily. Do not crush, chew, or split. 11/11/24 02/09/25 Breanna Tolliver MD cyclobenzaprine (Flexeril) 10 MG tablet Take 1 tablet (10 mg) by mouth Nightly as needed for muscle spasms. 01/02/23 02/24/25 Shawanda Costa MD Current Medications[4] ALLERGIES: Allergies[5] OBJECTIVE: Vitals: Blood pressure (!) 155/84, pulse 68, temperature 36.1 C (96.9 F), temperature source Temporal, resp. rate 18, height 6' 1 (1.854 m), weight 235 lb (107 kg), SpO2 96%. General appearance: Alert and oriented, NAD, conversational HEENT: NC/AT, PERRL, sclera anicteric Neck: Supple, normal ROM Respiratory: Normal respiratory effort. CTA Cardiovascular: Regular rate and rhythm Abdomen: Soft, non-tender, non-distended Skin: Skin color, texture, turgor normal. No rashes or lesions. Neurologic: Grossly intact LABS: Reviewed IMAGING/PROCEDURES Reviewed ASSESSMENT Nery Rodriguez Jr. is a 74 y.o. male with rectal bleeding and loss of appetite. Here for EGD and colonoscopy. PLAN EGD The benefits, alternatives, and risks of the procedure(s) including (but not exclusive to) pain, sore throat, bleeding, perforation, infection, nausea, vomiting, aspiration, hypoxia/hypotension/allergic reaction(s) due to sedatives, phlebitis, need for hospitalization, need for transfusions, need for antibiotic therapy, need for surgery, and likelihood of missing a lesion, were explained to the patient/guardian/responsible accompanying adult who is agreeable. COLON The benefits, alternatives, and risks of the procedure(s) including (but not exclusive to) pain, bleeding, perforation, infection, nausea, vomiting, aspiration, hypoxia/hypotension/allergic reaction(s) due to sedatives, phlebitis, need for hospitalization, need for transfusions, need for antibiotic therapy, need for surgery, and likelihood of missing a polyp or neoplastic lesion, were explained to the patient/guardian/responsible accompanying adult who is agreeable. Mark Yeh MD [1] Past Medical History: Diagnosis Date 2019 novel coronavirus disease (COVID-19) 02/18/2023 Abnormal EKG Alcoholism ([facility]/HCC) ([facility]) 1989 Allergic 01/15/1992 Anxiety Arthritis 02/13/2023 Benign prostatic hyperplasia Not sure Cancer (CMS/HCC) ([facility]) 04/08/2024 Emphysema lung ([facility]) Enlarged prostate Erectile dysfunction 12 yea Hyperlipidemia Hypertension Kidney stone 02/13/2023 Parkinson's disease ([facility]) REM sleep behavior disorder Sepsis ([facility]) Tremor Urinary incontinence Controlled by medication [2] Past Surgical History: Procedure Laterality Date COLONOSCOPY N/A 02/28/2025 Performed by Mark Yeh MD at [facility] CYST REMOVAL 1970 Tailbone cyst CYSTOSCOPY 02/12/2023 C&P with stent KIDNEY STONE SURGERY 03/2023 KIDNEY SURGERY 02/15/2023 NEPHRECTOMY Right 04/08/2024 ROBOTIC RIGHT RADICAL NEPHRECTOMY - Right [3] Family History Problem Relation Name Age of Onset Parkinsonism Mother Jhui Michael High Blood Pressure Mother Juhi Michael Depression Mother Juhi Michael Hearing loss Mother Juhi Michael Fainting Mother Juhi Rodriguez Hypertension Mother Juhi Rodriguez Mental illness Mother Juhi Rodriguez Heart disease Father Nery Rodriguez Sr. Bipolar disorder Sister Amie Mental illness Sister Amie [4] Current Facility-Administered Medications Medication Dose Route Frequency Provider Last Rate Last Admin sodium chloride 0.9 % infusion 5-250 mL/hr IntraVENous PRN Mark Yeh MD sodium chloride 0.9% (NS) flush 10 mL 10 mL IntraVENous 2 times per day Mark Yeh MD sodium chloride 0.9% (NS) flush 10 mL 10 mL IntraVENous PRN Mark Yeh MD [5] Allergies Allergen Reactions Pollen Extract Seasonal allergies. Ropinirole Constipation and sleepiness [employer] Phone: 02-28-2025 Note GASTROENTEROLOGY PRE PROCEDURE H&P 02/28/2025 Patient: Nery Rodriguez Jr. : 1950 Primary Care Physician: Shawanda Costa MD HISTORY OF PRESENT ILLNESS: Nery Rodriguez Jr. is a 74 y.o. male referred by Dr. Costa and Mohan Haskins CNP re: rectal bleeding. Patient reports intermittent rectal bleeding ongoing for years-previously attributed to hemorrhoids. Bleeding has changed over the past 9 months. Bleeding is with every bowel movement now, followed by stool leakage and pink tinged drainage. Has constipation at baseline-uses colace three times per week. Has BM when he takes colace. Notes if he uses daily, leakage worsens. Last colonoscopy ~ 6 [place] Also endorses decreased appetite over the past year. Has chronic anemia, most recent hgb 12.9/hct 37.4 (08/26/2024). No prior EGD. REVIEW OF SYSTEMS: A complete 10 point review of systems was obtained. Please see the HPI for pertinent positives and negatives. All other systems reviewed were found to be negative or noncontributory. PAST MEDICAL HISTORY: Medical History[1] PAST SURGICAL HISTORY: Surgical History[2] SOCIAL HISTORY: TOBACCO: reports that he quit smoking about 16 years ago. His smoking use included cigarettes. He started smoking about 40 years ago. He has a 25 pack-year smoking history. He has never used smokeless tobacco. ETOH: reports that he does not currently use alcohol. DRUGS: reports no history of drug use. FAMILY HISTORY: Family History[3] MEDICATIONS: Prior to Admission medications Medication Sig Start Date End Date Taking? Authorizing Provider clonazePAM (KlonoPIN) 0.5 MG tablet Take 0.5 tablets (0.25 mg) by mouth Daily as needed for anxiety. 01/24/25 04/24/25 Yes Dany Healy DO loratadine (Claritin) 10 MG tablet TAKE 1 TABLET (10 MG) BY MOUTH DAILY. 11/13/24 05/12/25 Yes Shawanda Costa MD PARoxetine (Paxil) 10 MG tablet Take 1 tablet (10 mg) by mouth every morning. 07/23/24 07/18/25 Yes Dany Healy DO polyethylene glycol, PEG, 3350 (MiraLax) 17 GM/SCOOP powder Take 17 g by mouth daily. 01/20/25 Yes MELISSA Shea CNP tamsulosin (Flomax) 0.4 MG 24 hr capsule TAKE 1 CAPSULE BY MOUTH EVERY DAY 11/13/24 Yes Shawanda Costa MD telmisartan (MIcarDIS) 20 MG tablet TAKE 1 TABLET BY MOUTH EVERY DAY 12/05/24 Yes Shawanda Costa MD carbidopa-levodopa (Sinemet) 25-100 MG tablet Take 1 tablet by mouth 3 times daily. 11/11/24 02/09/25 Breanna Tolliver MD gabapentin (Neurontin) 400 MG capsule Take 3 capsules (1,200 mg) by mouth Nightly. Do not start before May 15, 2024. 05/15/24 11/11/24 Breanna Tolliver MD propranolol LA (Inderal LA) 60 MG 24 hr capsule Take 1 capsule (60 mg) by mouth daily. Do not crush, chew, or split. 11/11/24 02/09/25 Breanna Tolliver MD cyclobenzaprine (Flexeril) 10 MG tablet Take 1 tablet (10 mg) by mouth Nightly as needed for muscle spasms. 01/02/23 02/24/25 Shawanda Costa MD Current Medications[4] ALLERGIES: Allergies[5] OBJECTIVE: Vitals: Blood pressure (!) 155/84, pulse 68, temperature 36.1 ?C (96.9 ?F), temperature source Temporal, resp. rate 18, height 6' 1 (1.854 m), weight 235 lb (107 kg), SpO2 96%. General appearance: Alert and oriented, NAD, conversational HEENT: NC/AT, PERRL, sclera anicteric Neck: Supple, normal ROM Respiratory: Normal respiratory effort. CTA Cardiovascular: Regular rate and rhythm Abdomen: Soft, non-tender, non-distended Skin: Skin color, texture, turgor normal. No rashes or lesions. Neurologic: Grossly intact LABS: Reviewed IMAGING/PROCEDURES Reviewed ASSESSMENT Nery Rodriguez Jr. is a 74 y.o. male with rectal bleeding and loss of appetite. Here for EGD and colonoscopy. PLAN EGD The benefits, alternatives, and risks of the procedure(s) including (but not exclusive to) pain, sore throat, bleeding, perforation, infection, nausea, vomiting, aspiration, hypoxia/hypotension/allergic reaction(s) due to sedatives, phlebitis, need for hospitalization, need for transfusions, need for antibiotic therapy, need for surgery, and likelihood of missing a lesion, were explained to the patient/guardian/responsible accompanying adult who is agreeable. COLON The benefits, alternatives, and risks of the procedure(s) including (but not exclusive to) pain, bleeding, perforation, infection, nausea, vomiting, aspiration, hypoxia/hypotension/allergic reaction(s) due to sedatives, phlebitis, need for hospitalization, need for transfusions, need for antibiotic therapy, need for surgery, and likelihood of missing a polyp or neoplastic lesion, were explained to the patient/guardian/responsible accompanying adult who is agreeable. Mark Yeh MD [1] Past Medical History: Diagnosis Date 2019 novel coronavirus disease (COVID-19) 02/18/2023 Abnormal EKG Alcoholism (CMS/HCC) (HCC) 1989 Allergic 01/15/1992 Anxiety Arthritis 02/13/2023 Benign prostatic hyperplasia Not mariano (more content not included)... [facility] 02-28-2025 History and physical note Images from the original note were not included. GASTROENTEROLOGY PREPROCEDURE H&P 02/28/2025 Patient: Nery Rodriguez Jr. : 1950 Primary Care Physician: Shawanda Costa MD HISTORY OF PRESENT ILLNESS: Nery Rodriguez Jr. is a 74 y.o. male referred by Dr. Costa and Mohan Haskins CNP re: rectal bleeding. Patient reports intermittent rectal bleeding ongoing for years-previously attributed to hemorrhoids. Bleeding has changed over the past 9 months. Bleeding is with every bowel movement now, followed by stool leakage and pink tinged drainage. Has constipation at baseline-uses colace three times per week. Has BM when he takes colace. Notes if he uses daily, leakage worsens. Last colon[place] ~ [place] Also endorses decreased appetite over the past year. Has chronic anemia, most recent hgb 12.9/hct 37.4 (08/26/2024). No prior EGD. REVIEW OF SYSTEMS: A complete 10 point review of systems was obtained. Please see the HPI for pertinent positives and negatives. All other systems reviewed were found to be negative or noncontributory. PAST MEDICAL HISTORY: Medical History[1] PAST SURGICAL HISTORY: Surgical History[2] SOCIAL HISTORY: TOBACCO: reports that he quit smoking about 16 years ago. His smoking use included cigarettes. He started smoking about 40 years ago. He has a 25 pack-year smoking history. He has never used smokeless tobacco. ETOH: reports that he does not currently use alcohol. DRUGS: reports no history of drug use. FAMILY HISTORY: Family History[3] MEDICATIONS: Prior to Admission medications Medication Sig Start Date End Date Taking? Authorizing Provider clonazePAM (KlonoPIN) 0.5 MG tablet Take 0.5 tablets (0.25 mg) by mouth Daily as needed for anxiety. 01/24/25 04/24/25 Yes Dany Healy DO loratadine (Claritin) 10 MG tablet TAKE 1 TABLET (10 MG) BY MOUTH DAILY. 11/13/24 05/12/25 Yes Shawanda Costa MD PARoxetine (Paxil) 10 MG tablet Take 1 tablet (10 mg) by mouth every morning. 07/23/24 07/18/25 Yes Dany Healy DO polyethylene glycol, PEG, 3350 (MiraLax) 17 GM/SCOOP powder Take 17 g by mouth daily. 01/20/25 Yes MELISSA Shea CNP tamsulosin (Flomax) 0.4 MG 24 hr capsule TAKE 1 CAPSULE BY MOUTH EVERY DAY 11/13/24 Yes Shawanda Costa MD telmisartan (MIcarDIS) 20 MG tablet TAKE 1 TABLET BY MOUTH EVERY DAY 12/05/24 Yes Shawanda Costa MD carbidopa-levodopa (Sinemet) 25-100 MG tablet Take 1 tablet by mouth 3 times daily. 11/11/24 02/09/25 Breanna Tolliver MD gabapentin (Neurontin) 400 MG capsule Take 3 capsules (1,200 mg) by mouth Nightly. Do not start before May 15, 2024. 05/15/24 11/11/24 Breanna Tolliver MD propranolol LA (Inderal LA) 60 MG 24 hr capsule Take 1 capsule (60 mg) by mouth daily. Do not crush, chew, or split. 11/11/24 02/09/25 Breanna Tolliver MD cyclobenzaprine (Flexeril) 10 MG tablet Take 1 tablet (10 mg) by mouth Nightly as needed for muscle spasms. 01/02/23 02/24/25 Shawanda Costa MD Current Medications[4] ALLERGIES: Allergies[5] OBJECTIVE: Vitals: Blood pressure (!) 155/84, pulse 68, temperature 36.1 C (96.9 F), temperature source Temporal, resp. rate 18, height 6' 1 (1.854 m), weight 235 lb (107 kg), SpO2 96%. General appearance: Alert and oriented, NAD, conversational HEENT: NC/AT, PERRL, sclera anicteric Neck: Supple, normal ROM Respiratory: Normal respiratory effort. CTA Cardiovascular: Regular rate and rhythm Abdomen: Soft, non-tender, non-distended Skin: Skin color, texture, turgor normal. No rashes or lesions. Neurologic: Grossly intact LABS: Reviewed IMAGING/PROCEDURES Reviewed ASSESSMENT Nery Rodriguez Jr. is a 74 y.o. male with rectal bleeding and loss of appetite. Here for EGD and colonoscopy. PLAN EGD The benefits, alternatives, and risks of the procedure(s) including (but not exclusive to) pain, sore throat, bleeding, perforation, infection, nausea, vomiting, aspiration, hypoxia/hypotension/allergic reaction(s) due to sedatives, phlebitis, need for hospitalization, need for transfusions, need for antibiotic therapy, need for surgery, and likelihood of missing a lesion, were explained to the patient/guardian/responsible accompanying adult who is agreeable. COLON The benefits, alternatives, and risks of the procedure(s) including (but not exclusive to) pain, bleeding, perforation, infection, nausea, vomiting, aspiration, hypoxia/hypotension/allergic reaction(s) due to sedatives, phlebitis, need for hospitalization, need for transfusions, need for antibiotic therapy, need for surgery, and likelihood of missing a polyp or neoplastic lesion, were explained to the patient/guardian/responsible accompanying adult who is agreeable. Mark Yeh MD [1] Past Medical History: Diagnosis Date 2019 novel coronavirus disease (COVID-19) 02/18/2023 Abnormal EKG Alcoholism ([facility]) ([facility]) 1989 Allergic 01/15/1992 Anxiety Arthritis 02/13/2023 Benign prostatic hyperplasia Not sure Cancer ([facility]) ([facility]) 04/08/2024 Emphysema lung ([facility]) Enlarged prostate Erectile dysfunction 12 yea Hyperlipidemia Hypertension Kidney stone 02/13/2023 Parkinson's disease ([facility]) REM sleep behavior disorder Sepsis ([facility]) Tremor Urinary incontinence Controlled by medication [2] Past Surgical History: Procedure Laterality Date COLONOSCOPY N/A 02/28/2025 Performed by Mark Yeh MD at [facility] CYST REMOVAL 1970 Tailbone cyst CYSTOSCOPY 02/12/2023 C&P with stent KIDNEY STONE SURGERY 03/2023 KIDNEY SURGERY 02/15/2023 NEPHRECTOMY Right 04/08/2024 ROBOTIC RIGHT RADICAL NEPHRECTOMY - Right [3] Family History Problem Relation Name Age of Onset Parkinsonism Mother Juhisamantha Rodriguez High Blood Pressure Mother Juhi Michael Depression Mother Juhi Michael Hearing loss Mother Juhi Michael Fainting Mother Juhi Michael Hypertension Mother Juhi Michael Mental illness Mother Juhi Michael Heart disease Father Nery Rodriguez Sr. Bipolar disorder Sister Amie Mental illness Sister Amie [4] Current Facility-Administered Medications Medication Dose Route Frequency Provider Last Rate Last Admin sodium chloride 0.9 % infusion 5-250 mL/hr IntraVENous PRN Mark Yeh MD sodium chloride 0.9% (NS) flush 10 mL 10 mL IntraVENous 2 times per day Mark Yeh MD sodium chloride 0.9% (NS) flush 10 mL 10 mL IntraVENous PRN Mark Yeh MD [5] Allergies Allergen Reactions Pollen Extract Seasonal allergies. Ropinirole Constipation and sleepiness documented in this encounter [facility] 02-28-2025 Note Patient: Nery luevano Jr. Procedure Information Date/Time: 02/28/25 0700 Procedures: ESOPHAGOGASTRODUODENOSCOPY, DIAGNOSTIC (Abdomen) COLONOSCOPY - EGD/Colonoscopy 45min Location: [facility] / [facility] Providers: Mark Yeh MD Relevant Problems Cardio (+) Ascending aortic aneurysm (HCC) (+) Essential hypertension (+) RBBB (right bundle branch block with left anterior fascicular block) /Renal (+) Hepatic cyst (+) Renal cancer, right (HCC) (+) Renal cyst, right (+) Stage 3a chronic kidney disease (HCC) Neuro/Psych (+) MDD (major depressive disorder) Pulmonary (+) Pulmonary emphysema, unspecified emphysema type (HCC) Other (+) Renal cancer, right (HCC) (+) Rheumatoid arthritis without rheumatoid factor, multiple sites ([facility]) Past Medical History: Past Medical History: 02/18/2023: 2019 novel coronavirus disease (COVID-19) No date: Abnormal EKG 1990: Alcoholism ([facility]/HCC) ([facility]) 01/15/1992: Allergic No date: Anxiety 02/13/2023: Arthritis Not sure: Benign prostatic hyperplasia 04/08/2024: Cancer ([facility]) ([facility]) No date: Emphysema lung ([facility]) No date: Enlarged prostate 12 yea: Erectile dysfunction No date: Hyperlipidemia No date: Hypertension 02/13/2023: Kidney stone No date: Parkinson's disease ([facility]) No date: REM sleep behavior disorder No date: Sepsis ([facility]) No date: Tremor Controlled by medication: Urinary incontinence Past Surgical History: Past Surgical History: 02/28/2025: COLONOSCOPY; N/A Comment: Performed by Mark Yeh MD at [facility] 1970: CYST REMOVAL Comment: Tailbone cyst 02/12/2023: CYSTOSCOPY Comment: C&P with stent 03/2023: KIDNEY STONE SURGERY 02/15/2023: KIDNEY SURGERY 04/08/2024: NEPHRECTOMY; Right Comment: ROBOTIC RIGHT RADICAL NEPHRECTOMY - Right Social History: TOBACCO: reports that he quit smoking about 16 years ago. His smoking use included cigarettes. He started smoking about 40 years ago. He has a 25 pack-year smoking history. He has never used smokeless tobacco. ETOH: reports that he does not currently use alcohol. Social History Substance and Sexual Activity Drug Use Never Comment: Caffeine: 1 cup of coffee; occasionally in afternoon Family History: Family History[1] Screening: unknown Clinical information reviewed: Tobacco Allergies Meds Med Hx Surg Hx Fam Hx Soc Hx Physical Exam Airway Mallampati: III TM distance: >3 FB Neck ROM: full Mouth Open: normalendotracheal tube not in place Cardiovascular Dental (+) edentulous Comments: Took dentures out Pulmonary Abdominal Anesthesia Plan patient is NPO appropriate Any family history or previous problems with anesthesia no ASA 3 TIVA Any family history or previous problems with anesthesia no The patient is not a current smoker. Anesthetic plan and risks discussed with patient. WAYNE Screening Labs: Lab Results Component Value Date WBC 4.2 08/26/2024 HGB 12.9 (L) 08/26/2024 HCT 37.4 (L) 08/26/2024 MCV 90.8 08/26/2024 PLT 231 08/26/2024 Lab Results Component Value Date NA 135 08/26/2024 K 4.8 08/26/2024 CL 99 08/26/2024 CO2 28 08/26/2024 BUN 17 08/26/2024 CREATININE 1.38 (H) 08/26/2024 GLUCOSE 98 08/26/2024 CALCIUM 9.4 08/26/2024 PROT 7.1 08/26/2024 ALKPHOS 76 08/26/2024 AST 33 08/26/2024 ALT 5 08/26/2024 EGFR 54.0 (L) 08/26/2024 No echocardiogram results found for the past 14 days 09/02/24 ECG 12-LEAD 09/02/2024 10:34 AM (Final) Narrative Sinus Bradycardia -First degree A-V block Isabelle = 284 -Right bundle branch block with left axis -bifascicular block. Signed by: Angelica Velázquez MD on 09/02/2024 10:34 AM Equipment Requests: Additional Equipment Requests [1] Family History Problem Relation Name Age of Onset Parkinsonism Mother Juhi Rodriguez High Blood Pressure Mother Juhi Rodriguez Depression Mother Juhi Rodriguez Hearing loss Mother Juhi Rodriguez Fainting Mother Juhi Rodriguez Hypertension Mother Juhi Rodriguez Mental illness Mother Juhi Rodriguez Heart disease Father Nery Rodriguez Sr. Bipolar disorder Sister Amie Mental illness Sister Amie [facility]- [facility] Patient Name: Nrey Rodriguez Procedure Date: 02/28/2025 6:40 AM Gender: Male Date of : 1950 Age: 74 Admit Type: Outpatient Note Status: Finalized Endoscopist: Mark Yeh MD, [id number] Procedure: Colonoscopy Indications: Hematochezia Nery Rodriguez Jr. is a 74 y.o. male referred by Dr. Costa and Mohan Haskins CNP re: rectal bleeding. Patient reports intermittent rectal bleeding ongoing for years-previously attributed to hemorrhoids. Bleeding has changed over the past 9 months. Last colon[place] ~ [place] Findings: Hemorrhoids were found on perianal exam. The terminal ileum appeared normal. A 7 mm polyp was found in the cecum. The polyp was sessile. The polyp was removed with a cold snare. Resection and retrieval were complete. Verification of patient identification for the specimen was done. Estimated blood loss was minimal. A 16 mm polyp was found in the ascending colon. The polyp was Bebe classification Is (protruding, sessile) and mixed lateral spreading. Preparations were made for mucosal resection. Demarcation of the lesion was performed with narrow band imaging to clearly identify the boundaries of the lesion. Eleview was injected to raise the lesion. Piecemeal cold snare mucosal resection was performed. Resection and retrieval were complete. Resected tissue margins were examined and clear of polyp tissue. Coagulation for tissue destruction of the resection margins using snare-tip soft coagulation was successful. To prevent bleeding after mucosal resection, four hemostatic clips were successfully placed (MR conditional). There was no bleeding at the end of the procedure. Verification of patient identification for the specimen was done. Estimated blood loss was minimal. A 10 mm polyp was found in the ascending colon. The polyp was Bebe classification Is (protruding, sessile). Preparations were made for mucosal resection. Demarcation of the lesion was performed with narrow band imaging to clearly identify the boundaries of the lesion. Eleview was injected to raise the lesion. Piecemeal cold snare mucosal resection was performed. Resection and retrieval were complete. Resected tissue margins were examined and clear of polyp tissue. Verification of patient identification for the specimen was done. Estimated blood loss was minimal. Multiple diverticula were found in the sigmoid colon and ascending colon. The exam was otherwise normal throughout the examined colon. Non-bleeding internal and external hemorrhoids were found during retroflexion. The hemorrhoids were medium-sized. Impression: - The examined portion of the ileum was normal. - One 7 mm polyp in the cecum, removed with a cold snare. Resected and retrieved. - One 16 mm polyp in the ascending colon, removed with mucosal resection. Resection margins treated with cautery. Resection and retrieval were complete. Four clips (MR conditional) were placed. - One 10 mm polyp in the ascending colon, removed with mucosal resection. Resected and retrieved. - Diverticulosis in the sigmoid colon and in the ascending colon. - Non-bleeding internal and external hemorrhoids. Recommendation: - The patient will be observed post-procedure, until all discharge criteria are met. - Discharge patient to home. - Observe patient's clinical course following today's procedure with therapeutic intervention. - Watch for complications post-procedure, including fevers, infection, bleeding and perforation. - Resume previous diet. - Continue present medications. - Await pathology results. - Repeat colonoscopy in 6 months for surveillance after endoscopic mucosal resection. - Return to referring providers as previously scheduled for follow-up. - The findings and recommendations were discussed with the patient and their family. - Patient has a contact number available for emergencies. The signs and symptoms of potential delayed complications were discussed with the patient. Return to normal activities tomorrow. Written discharge instructions were provided to the patient. Referring MD: Mohan Haskins CNP, Shawanda Costa MD Medicines: Monitored Anesthesia Care Procedure: Pre-Anesthesia Assessment: - Prior to the procedure, a History and Physical was performed, and patient medications and allergies were reviewed. The patient's tolerance of previous anesthesia was also reviewed. The risks and benefits of the procedure and the sedation options and risks were discussed with the patient. All questions were answered, and informed consent was obtained. Prior Anticoagulants: The patient has taken no anticoagulant or antiplatelet agents. ASA Grade Assessment: III - A patient with severe systemic disease. After reviewing the risks and benefits, the patient was deemed in satisfactory cond (more content not included)... [facility]28[facility]2025 [facility] Name: Nery [facility] Procedure Date: 02/28/2025 6:40 AM Gender: Male Date of : 1950 Age: 74 Admit Type: Outpatient Note Status: Finalized Endoscopist: Mark Yeh MD, [id number] Procedure: Colonoscopy Indications: Hematochezia Nery Rodriguez Jr. is a 74 y.o. male referred by Dr. Costa and Mohan Haskins CNP re: rectal bleeding. Patient reports intermittent rectal bleeding ongoing for years-previously attributed to hemorrhoids. Bleeding has changed over the past 9 months. Last colonoscopy ~ 6 [place] Findings: Hemorrhoids were found on perianal exam. The terminal ileum appeared normal. A 7 mm polyp was found in the cecum. The polyp was sessile. The polyp was removed with a cold snare. Resection and retrieval were complete. Verification of patient identification for the specimen was done. Estimated blood loss was minimal. A 16 mm polyp was found in the ascending colon. The polyp was Bebe classification Is (protruding, sessile) and mixed lateral spreading. Preparations were made for mucosal resection. Demarcation of the lesion was performed with narrow band imaging to clearly identify the boundaries of the lesion. Eleview was injected to raise the lesion. Piecemeal cold snare mucosal resection was performed. Resection and retrieval were complete. Resected tissue margins were examined and clear of polyp tissue. Coagulation for tissue destruction of the resection margins using snare-tip soft coagulation was successful. To prevent bleeding after mucosal resection, four hemostatic clips were successfully placed (MR conditional). There was no bleeding at the end of the procedure. Verification of patient identification for the specimen was done. Estimated blood loss was minimal. A 10 mm polyp was found in the ascending colon. The polyp was Bebe classification Is (protruding, sessile). Preparations were made for mucosal resection. Demarcation of the lesion was performed with narrow band imaging to clearly identify the boundaries of the lesion. Eleview was injected to raise the lesion. Piecemeal cold snare mucosal resection was performed. Resection and retrieval were complete. Resected tissue margins were examined and clear of polyp tissue. Verification of patient identification for the specimen was done. Estimated blood loss was minimal. Multiple diverticula were found in the sigmoid colon and ascending colon. The exam was otherwise normal throughout the examined colon. Non-bleeding internal and external hemorrhoids were found during retroflexion. The hemorrhoids were medium-sized. Impression: - The examined portion of the ileum was normal. - One 7 mm polyp in the cecum, removed with a cold snare. Resected and retrieved. - One 16 mm polyp in the ascending colon, removed with mucosal resection. Resection margins treated with cautery. Resection and retrieval were complete. Four clips (MR conditional) were placed. - One 10 mm polyp in the ascending colon, removed with mucosal resection. Resected and retrieved. - Diverticulosis in the sigmoid colon and in the ascending colon. - Non-bleeding internal and external hemorrhoids. Recommendation: - The patient will be observed post-procedure, until all discharge criteria are met. - Discharge patient to home. - Observe patient's clinical course following today's procedure with therapeutic intervention. - Watch for complications post-procedure, including fevers, infection, bleeding and perforation. - Resume previous diet. - Continue present medications. - Await pathology results. - Repeat colonoscopy in 6 months for surveillance after endoscopic mucosal resection. - Return to referring providers as previously scheduled for follow-up. - The findings and recommendations were discussed with the patient and their family. - Patient has a contact number available for emergencies. The signs and symptoms of potential delayed complications were discussed with the patient. Return to normal activities tomorrow. Written discharge instructions were provided to the patient. Referring MD: Mohan Haskins CNP, Shawanda Costa MD Medicines: Monitored Anesthesia Care Procedure: Pre-Anesthesia Assessment: - Prior to the procedure, a History and Physical was performed, and patient medications and allergies were reviewed. The patient's tolerance of previous anesthesia was also reviewed. The risks and benefits of the procedure and the sedation options and risks were discussed with the patient. All questions were answered, and informed consent was obtained. Prior Anticoagulants: The patient has taken no anticoagulant or antiplatelet agents. ASA Grade Assessment: III - A patient with severe systemic disease. After reviewing the risks and benefits, the patient was deemed in satisfactory condition to undergo the procedure. After I obtained informed consent, the scope was passed under direct vision. Throughout the procedure, the patient's blood pressure, pulse, and oxygen saturations were monitored continuously. The Colonoscope was introduced through the anus and advanced to the terminal ileum, with identification of the appendiceal orifice and IC valve. The colonoscopy was performed without difficulty. The patient tolerated the procedure well. The quality of the bowel preparation was evaluated using the BBPS (Garber Bowel Preparation Scale) with scores of: Right Colon = 3, Transverse Colon = 3 and Left Colon = 3 (entire mucosa seen well with no residual staining, small fragments of stool or opaque liquid). The total BBPS score equals 9. The terminal ileum, ileocecal valve, appendiceal orifice, and rectum were photographed. Complications: No immediate complications. Procedure Code(s): --- Professional --- 40312, Colonoscopy, flexible; with endoscopic mucosal resection 01878, 59, Colonoscopy, flexible; with removal of tumor(s), polyp(s), or other lesion(s) by snare technique --- Technical --- 96445, Colonoscopy, flexible; with endoscopic mucosal resection 40840, 59, Colonoscopy, flexible; with removal of tumor(s), polyp(s), or other lesion(s) by snare technique Diagnosis Code(s): --- Professional --- K64.4, Residual hemorrhoidal skin tags D12.0, Benign neoplasm of cecum D12.2, Benign neoplasm of ascending colon K92.1, Melena (includes Hematochezia) K57.30, Diverticulosis of large intestine without perforation or abscess without bleeding --- Technical --- K64.4, Residual hemorrhoidal skin tags D12.0, Benign neoplasm of cecum D12.2, Benign neoplasm of ascending colon K92.1, Melena (includes Hematochezia) K57.30, Diverticulosis of large intestine without perforation or abscess without bleeding CPT copyright 2021 [employer]. All rights reserved. The codes documented in this report are preliminary and upon miller first review may be revised to meet current compliance requirements. Attending Participation: I personally performed the entire procedure. Mark Yeh MD 02/28/2025 8:56:45 AM This report has been signed electronically. Number of Addenda: 0 Note Initiated On: 02/28/2025 6:40 AM [facility] 02-28-2025 [facility] Name: Nery Rodriguez Procedure Date: 02/28/2025 6:40 AM Gender: Male Date of : 1950 Age: 74 Admit Type: Outpatient Note Status: Finalized Endoscopist: Mark Yeh MD, [id number] Procedure: Colonoscopy Indications: Hematochezia Nery Rodriguez Jr. is a 74 y.o. male referred by Dr. Costa and Mohan Haskins CNP re: rectal bleeding. Patient reports intermittent rectal bleeding ongoing for years-previously attributed to hemorrhoids. Bleeding has changed over the past 9 months. Last colonoscopy ~ [place] Findings: Hemorrhoids were found on perianal exam. The terminal ileum appeared normal. A 7 mm polyp was found in the cecum. The polyp was sessile. The polyp was removed with a cold snare. Resection and retrieval were complete. Verification of patient identification for the specimen was done. Estimated blood loss was minimal. A 16 mm polyp was found in the ascending colon. The polyp was Bebe classification Is (protruding, sessile) and mixed lateral spreading. Preparations were made for mucosal resection. Demarcation of the lesion was performed with narrow band imaging to clearly identify the boundaries of the lesion. Eleview was injected to raise the lesion. Piecemeal cold snare mucosal resection was performed. Resection and retrieval were complete. Resected tissue margins were examined and clear of polyp tissue. Coagulation for tissue destruction of the resection margins using snare-tip soft coagulation was successful. To prevent bleeding after mucosal resection, four hemostatic clips were successfully placed (MR conditional). There was no bleeding at the end of the procedure. Verification of patient identification for the specimen was done. Estimated blood loss was minimal. A 10 mm polyp was found in the ascending colon. The polyp was Bebe classification Is (protruding, sessile). Preparations were made for mucosal resection. Demarcation of the lesion was performed with narrow band imaging to clearly identify the boundaries of the lesion. Eleview was injected to raise the lesion. Piecemeal cold snare mucosal resection was performed. Resection and retrieval were complete. Resected tissue margins were examined and clear of polyp tissue. Verification of patient identification for the specimen was done. Estimated blood loss was minimal. Multiple diverticula were found in the sigmoid colon and ascending colon. The exam was otherwise normal throughout the examined colon. Non-bleeding internal and external hemorrhoids were found during retroflexion. The hemorrhoids were medium-sized. Impression: - The examined portion of the ileum was normal. - One 7 mm polyp in the cecum, removed with a cold snare. Resected and retrieved. - One 16 mm polyp in the ascending colon, removed with mucosal resection. Resection margins treated with cautery. Resection and retrieval were complete. Four clips (MR conditional) were placed. - One 10 mm polyp in the ascending colon, removed with mucosal resection. Resected and retrieved. - Diverticulosis in the sigmoid colon and in the ascending colon. - Non-bleeding internal and external hemorrhoids. Recommendation: - The patient will be observed post-procedure, until all discharge criteria are met. - Discharge patient to home. - Observe patient's clinical course following today's procedure with therapeutic intervention. - Watch for complications post-procedure, including fevers, infection, bleeding and perforation. - Resume previous diet. - Continue present medications. - Await pathology results. - Repeat colonoscopy in 6 months for surveillance after endoscopic mucosal resection. - Return to referring providers as previously scheduled for follow-up. - The findings and recommendations were discussed with the patient and their family. - Patient has a contact number available for emergencies. The signs and symptoms of potential delayed complications were discussed with the patient. Return to normal activities tomorrow. Written discharge instructions were provided to the patient. Referring MD: Mohan Haskins CNP, Shawanda Costa MD Medicines: Monitored Anesthesia Care Procedure: Pre-Anesthesia Assessment: - Prior to the procedure, a History and Physical was performed, and patient medications and allergies were reviewed. The patient's tolerance of previous anesthesia was also reviewed. The risks and benefits of the procedure and the sedation options and risks were discussed with the patient. All questions were answered, and informed consent was obtained. Prior Anticoagulants: The patient has taken no anticoagulant or antiplatelet agents. ASA Grade Assessment: III - A patient with severe systemic disease. After reviewing the risks and benefits, the patient was deemed in satisfactory condition to undergo the procedure. After I obtained informed consent, the scope was passed under direct vision. Throughout the procedure, the patient's blood pressure, pulse, and oxygen saturations were monitored continuously. The Colonoscope was introduced through the anus and advanced to the terminal ileum, with identification of the appendiceal orifice and IC valve. The colonoscopy was performed without difficulty. The patient tolerated the procedure well. The quality of the bowel preparation was evaluated using the BBPS (Garber Bowel Preparation Scale) with scores of: Right Colon = 3, Transverse Colon = 3 and Left Colon = 3 (entire mucosa seen well with no residual staining, small fragments of stool or opaque liquid). The total BBPS score equals 9. The terminal ileum, ileocecal valve, appendiceal orifice, and rectum were photographed. Complications: No immediate complications. Procedure Code(s): --- Professional --- 41191, Colonoscopy, flexible; with endoscopic mucosal resection 00734, 59, Colonoscopy, flexible; with removal of tumor(s), polyp(s), or other lesion(s) by snare technique --- Technical --- 53589, Colonoscopy, flexible; with endoscopic mucosal resection 04253, 59, Colonoscopy, flexible; with removal of tumor(s), polyp(s), or other lesion(s) by snare technique Diagnosis Code(s): --- Professional --- K64.4, Residual hemorrhoidal skin tags D12.0, Benign neoplasm of cecum D12.2, Benign neoplasm of ascending colon K92.1, Melena (includes Hematochezia) K57.30, Diverticulosis of large intestine without perforation or abscess without bleeding --- Technical --- K64.4, Residual hemorrhoidal skin tags D12.0, Benign neoplasm of cecum D12.2, Benign neoplasm of ascending colon K92.1, Melena (includes Hematochezia) K57.30, Diverticulosis of large intestine without perforation or abscess without bleeding CPT copyright 2021 [employer]. All rights reserved. The codes documented in this report are preliminary and upon miller first review may be revised to meet current compliance requirements. Attending Participation: I personally performed the entire procedure. Mark Yeh MD 02/28/2025 8:56:45 AM This report has been signed electronically. Number of Addenda: 0 Note Initiated On: 02/28/2025 6:40 AM [facility]- [facility] Patient Name: Nery Rodriguez Procedure Date: 02/28/2025 6:39 AM Gender: Male Date of : 1950 Age: 74 Admit Type: Outpatient Note Status: Finalized Endoscopist: Mark Yeh MD, [id number] Procedure: Upper GI endoscopy Indications: Anorexia, Dysphagia, Weight loss Nery Rodriguez Jr. is a 74 y.o. male referred by Dr. Costa and Mohan Haskins CNP re: rectal bleeding. Patient reports intermittent rectal bleeding ongoing for years-previously attributed to hemorrhoids. Bleeding has changed over the past 9 months. Last colonoscopy ~ [place] Also endorses decreased appetite over the past year. Has chronic anemia, most recent hgb 12.9/hct 37.4 (08/26/2024). No prior EGD. Findings: The hypopharynx was normal. The examined esophagus was normal. There is no endoscopic evidence of Burger's esophagus, bleeding, esophagitis, stricture, ulcerations or varices in the entire esophagus. The Z-line was regular and was found 40 cm from the incisors. Diffuse mild inflammation characterized by erythema was found in the gastric antrum. Biopsies were taken with a cold forceps for Helicobacter pylori testing. Verification of patient identification for the specimen was done. Estimated blood loss was minimal. The exam of the stomach was otherwise normal. There is no endoscopic evidence of bleeding, ulceration, varices or erosion in the stomach. The duodenal bulb, first portion of the duodenum and second portion of the duodenum were normal. Biopsies for histology were taken with a cold forceps for evaluation of celiac disease. Verification of patient identification for the specimen was done. Estimated blood loss was minimal. Impression: - Normal hypopharynx. - Normal esophagus. - Mild gastritis, characterized by erythema. Biopsied. - Normal duodenal bulb, first portion of the duodenum and second portion of the duodenum. Biopsied. - No findings to definitely explain patient's symptoms of poor appetite. Recommendation: - Will proceed with a colonoscopy as previously scheduled. - Resume previous diet. - Continue present medications. - Await pathology results. - Return to SIMÓN Haskins in the GI clinic at appointment to be scheduled for GI follow-up. - Return to primary care physician as previously scheduled for routine follow-up. - The findings and recommendations were discussed with the patient. - Patient has a contact number available for emergencies. The signs and symptoms of potential delayed complications were discussed with the patient. Return to normal activities tomorrow. Written discharge instructions were provided to the patient. Referring MD: Mohan Haskins CNP, Shawanda Costa MD Medicines: Monitored Anesthesia Care Procedure: Pre-Anesthesia Assessment: - Prior to the procedure, a History and Physical was performed, and patient medications and allergies were reviewed. The patient's tolerance of previous anesthesia was also reviewed. The risks and benefits of the procedure and the sedation options and risks were discussed with the patient. All questions were answered, and informed consent was obtained. Prior Anticoagulants: The patient has taken no anticoagulant or antiplatelet agents. ASA Grade Assessment: III - A patient with severe systemic disease. After reviewing the risks and benefits, the patient was deemed in satisfactory condition to undergo the procedure. After obtaining informed consent, the endoscope was passed under direct vision. Throughout the procedure, the patient's blood pressure, pulse, and oxygen saturations were monitored continuously. The Endoscope was introduced through the mouth, and advanced to the second part of duodenum. The upper GI endoscopy was accomplished without difficulty. The patient tolerated the procedure well. Complications: No immediate complications. Procedure Code(s): --- Professional --- 86696, Esophagogastroduodenoscopy, flexible, transoral; with biopsy, single or multiple --- Technical --- 31738, Esophagogastroduodenoscopy, flexible, transoral; with biopsy, single or multiple Diagnosis Code(s): --- Professional --- K29.70, Gastritis, unspecified, without bleeding R63.0, Anorexia R13.10, Dysphagia, unspecified R63.4, Abnormal weight loss --- Technical --- K29.70, Gastritis, unspecified, without bleeding R63.0, Anorexia R13.10, Dysphagia, unspecified R63.4, Abnormal weight loss CPT copyright 2021 [employer]. All rights reserved. The codes documented in this report are preliminary and upon miller first review may be revised to meet current compliance requirements. Attending Participation: I personally performed the entire procedure. Mark Yeh MD 02/28/2025 8:46:47 AM This report has been signed electronically. Number of Addenda: 0 Note Initiated On: 02/28/2025 6:39 AM documented in this encounter [facility] 02-28-2025 Note Endoscopy Center- [facility] Patient Name: Nery Rodriguez Procedure Date: 02/28/2025 6:39 AM Gender: Male Date of : 1950 Age: 74 Admit Type: Outpatient Note Status: Finalized Endoscopist: Mark Yeh MD, [id number] Procedure: Upper GI endoscopy Indications: Anorexia, Dysphagia, Weight loss Nery Rodriguez Jr. is a 74 y.o. male referred by Dr. Costa and Mohan Haskins CNP re: rectal bleeding. Patient reports intermittent rectal bleeding ongoing for years-previously attributed to hemorrhoids. Bleeding has changed over the past 9 months. Last colonoscopy ~ [place] Also endorses decreased appetite over the past year. Has chronic anemia, most recent hgb 12.9/hct 37.4 (08/26/2024). No prior EGD. Findings: The hypopharynx was normal. The examined esophagus was normal. There is no endoscopic evidence of Burger's esophagus, bleeding, esophagitis, stricture, ulcerations or varices in the entire esophagus. The Z-line was regular and was found 40 cm from the incisors. Diffuse mild inflammation characterized by erythema was found in the gastric antrum. Biopsies were taken with a cold forceps for Helicobacter pylori testing. Verification of patient identification for the specimen was done. Estimated blood loss was minimal. The exam of the stomach was otherwise normal. There is no endoscopic evidence of bleeding, ulceration, varices or erosion in the stomach. The duodenal bulb, first portion of the duodenum and second portion of the duodenum were normal. Biopsies for histology were taken with a cold forceps for evaluation of celiac disease. Verification of patient identification for the specimen was done. Estimated blood loss was minimal. Impression: - Normal hypopharynx. - Normal esophagus. - Mild gastritis, characterized by erythema. Biopsied. - Normal duodenal bulb, first portion of the duodenum and second portion of the duodenum. Biopsied. - No findings to definitely explain patient's symptoms of poor appetite. Recommendation: - Will proceed with a colonoscopy as previously scheduled. - Resume previous diet. - Continue present medications. - Await pathology results. - Return to SIMÓN Haskins in the GI clinic at appointment to be scheduled for GI follow-up. - Return to primary care physician as previously scheduled for routine follow-up. - The findings and recommendations were discussed with the patient. - Patient has a contact number available for emergencies. The signs and symptoms of potential delayed complications were discussed with the patient. Return to normal activities tomorrow. Written discharge instructions were provided to the patient. Referring MD: Mohan Haskins CNP, Shawanda Costa MD Medicines: Monitored Anesthesia Care Procedure: Pre-Anesthesia Assessment: - Prior to the procedure, a History and Physical was performed, and patient medications and allergies were reviewed. The patient's tolerance of previous anesthesia was also reviewed. The risks and benefits of the procedure and the sedation options and risks were discussed with the patient. All questions were answered, and informed consent was obtained. Prior Anticoagulants: The patient has taken no anticoagulant or antiplatelet agents. ASA Grade Assessment: III - A patient with severe systemic disease. After reviewing the risks and benefits, the patient was deemed in satisfactory condition to undergo the procedure. After obtaining informed consent, the endoscope was passed under direct vision. Throughout the procedure, the patient's blood pressure, pulse, and oxygen saturations were monitored continuously. The Endoscope was introduced through the mouth, and advanced to the second part of duodenum. The upper GI endoscopy was accomplished without difficulty. The patient tolerated the procedure well. Complications: No immediate complications. Procedure Code(s): --- Professional --- 19489, Esophagogastroduodenoscopy, flexible, transoral; with biopsy, single or multiple --- Technical --- 97047, Esophagogastroduodenoscopy, flexible, transoral; with biopsy, single or multiple Diagnosis Code(s): --- Professional --- K29.70, Gastritis, unspecified, without bleeding R63.0, Anorexia R13.10, Dysphagia, unspecified R63.4, Abnormal weight loss --- Technical --- K29.70, Gastritis, unspecified, without bleeding R63.0, Anorexia R13.10, Dysphagia, unspecified R63.4, Abnormal weight loss CPT copyright 2021 [employer] [employer]. All rights reserved. The codes documented in this report are preliminary and upon miller first review may be revised to meet current compliance requirements. Attending Participation: I personally performed the entire procedure. Mark Yeh MD 02/28/2025 8:46:47 AM This report has been signed electronically. Number of Addenda: 0 Note Initiat (more content not included)... [facility] Name: Nery [facility] Procedure Date: 02/28/2025 6:39 AM Gender: Male Date of : 1950 Age: 74 Admit Type: Outpatient Note Status: Finalized Endoscopist: Mark Yeh MD, [id number] Procedure: Upper GI endoscopy Indications: Anorexia, Dysphagia, Weight loss Nery Rodriguez Jr. is a 74 y.o. male referred by Dr. Costa and Mohan Haskins CNP re: rectal bleeding. Patient reports intermittent rectal bleeding ongoing for years-previously attributed to hemorrhoids. Bleeding has changed over the past 9 months. Last colonoscopy ~ 6 [place] Also endorses decreased appetite over the past year. Has chronic anemia, most recent hgb 12.9/hct 37.4 (08/26/2024). No prior EGD. Findings: The hypopharynx was normal. The examined esophagus was normal. There is no endoscopic evidence of Burger's esophagus, bleeding, esophagitis, stricture, ulcerations or varices in the entire esophagus. The Z-line was regular and was found 40 cm from the incisors. Diffuse mild inflammation characterized by erythema was found in the gastric antrum. Biopsies were taken with a cold forceps for Helicobacter pylori testing. Verification of patient identification for the specimen was done. Estimated blood loss was minimal. The exam of the stomach was otherwise normal. There is no endoscopic evidence of bleeding, ulceration, varices or erosion in the stomach. The duodenal bulb, first portion of the duodenum and second portion of the duodenum were normal. Biopsies for histology were taken with a cold forceps for evaluation of celiac disease. Verification of patient identification for the specimen was done. Estimated blood loss was minimal. Impression: - Normal hypopharynx. - Normal esophagus. - Mild gastritis, characterized by erythema. Biopsied. - Normal duodenal bulb, first portion of the duodenum and second portion of the duodenum. Biopsied. - No findings to definitely explain patient's symptoms of poor appetite. Recommendation: - Will proceed with a colonoscopy as previously scheduled. - Resume previous diet. - Continue present medications. - Await pathology results. - Return to SIMÓN Haskins in the GI clinic at appointment to be scheduled for GI follow-up. - Return to primary care physician as previously scheduled for routine follow-up. - The findings and recommendations were discussed with the patient. - Patient has a contact number available for emergencies. The signs and symptoms of potential delayed complications were discussed with the patient. Return to normal activities tomorrow. Written discharge instructions were provided to the patient. Referring MD: Mohan Haskins CNP, Shawanda Costa MD Medicines: Monitored Anesthesia Care Procedure: Pre-Anesthesia Assessment: - Prior to the procedure, a History and Physical was performed, and patient medications and allergies were reviewed. The patient's tolerance of previous anesthesia was also reviewed. The risks and benefits of the procedure and the sedation options and risks were discussed with the patient. All questions were answered, and informed consent was obtained. Prior Anticoagulants: The patient has taken no anticoagulant or antiplatelet agents. ASA Grade Assessment: III - A patient with severe systemic disease. After reviewing the risks and benefits, the patient was deemed in satisfactory condition to undergo the procedure. After obtaining informed consent, the endoscope was passed under direct vision. Throughout the procedure, the patient's blood pressure, pulse, and oxygen saturations were monitored continuously. The Endoscope was introduced through the mouth, and advanced to the second part of duodenum. The upper GI endoscopy was accomplished without difficulty. The patient tolerated the procedure well. Complications: No immediate complications. Procedure Code(s): --- Professional --- 15461, Esophagogastroduodenoscopy, flexible, transoral; with biopsy, single or multiple --- Technical --- 38205, Esophagogastroduodenoscopy, flexible, transoral; with biopsy, single or multiple Diagnosis Code(s): --- Professional --- K29.70, Gastritis, unspecified, without bleeding R63.0, Anorexia R13.10, Dysphagia, unspecified R63.4, Abnormal weight loss --- Technical --- K29.70, Gastritis, unspecified, without bleeding R63.0, Anorexia R13.10, Dysphagia, unspecified R63.4, Abnormal weight loss CPT copyright 2021 [employer] [place] [employer]. All rights reserved. The codes documented in this report are preliminary and upon miller first review may be revised to meet current compliance requirements. Attending Participation: I personally performed the entire procedure. Mark Yeh MD 02/28/2025 8:46:47 AM This report has been signed electronically. Number of Addenda: 0 Note Initiated On: 02/28/2025 6:39 AM [facility] 02-24-2025 History of Present illness Narrative Images from the original note were not included. [facility] - [address] [facility] [address] Dept: [phone] Dept Loc: [phone] Reason for Visit: Follow-up Assessment and Plan 1. Chronic anemia chronic stable continue to monitor blood counts. - Hemoglobin A1c - CBC auto differential - Comprehensive metabolic panel - Lipid panel 2. Essential hypertension chronic stable continue propranolol continue telmisartan. - Hemoglobin A1c - CBC auto differential - Comprehensive metabolic panel - Lipid panel 3. Recurrent major depressive disorder, in full remission (HCC) patient sees psychiatry on clonazepam psychiatry following on Paxil on Klonopin - Hemoglobin A1c - CBC auto differential - Comprehensive metabolic panel - Lipid panel 4. Screening for diabetes mellitus - Hemoglobin A1c - CBC auto differential - Comprehensive metabolic panel - Lipid panel 5. Rheumatoid arthritis without rheumatoid factor, multiple sites rheumatology was started following patient currently treated by rheumatology ([facility]) - Hemoglobin A1c - CBC auto differential - Comprehensive metabolic panel - Lipid panel 6. Stage 3a chronic kidney disease ([facility]) continue to monitor kidney function. Urology following history of renal nga cancer. This is a chronic stable issue patient had right total nephrectomy - Hemoglobin A1c - CBC auto differential - Comprehensive metabolic panel - Lipid panel 7. Renal cancer, right ([facility]) his right kidney nephrectomy. Will continue to monitor his kidney function continue to follow-up with urologist. - Hemoglobin A1c - CBC auto differential - Comprehensive metabolic panel - Lipid panel 8. Pulmonary emphysema, unspecified emphysema type (HCC) chronic stable following CT CAT scan done in May recommendation repeat in 12 months. 9. Screening PSA (prostate specific antigen) - PSA Screening current treatment plan is effective, no change in therapy, orders and follow up as documented in EMR, lab results reviewed with patient, repeat labs ordered prior to next appointment, reviewed compliance with lifestyle measures, reviewed diet, exercise and weight control, reviewed medications and side effects in detail Return visit in 3 months. Subjective HPI this is a 74-year-old male he has a history of renal cell carcinoma with a nephrectomy. He sees Dr. Quintero for his checkups. He has not had any issues he is denying any chest pain is a history of high blood pressure no headaches no blurred vision today feeling well. Review of Systems Allergies Allergen Reactions Pollen Extract Seasonal allergies. Ropinirole Constipation and sleepiness Current Outpatient Medications Medication Sig Dispense Refill clonazePAM (KlonoPIN) 0.5 MG tablet Take 0.5 tablets (0.25 mg) by mouth Daily as needed for anxiety. 8 tablet 0 loratadine (Claritin) 10 MG tablet TAKE 1 TABLET (10 MG) BY MOUTH DAILY. 90 tablet 1 PARoxetine (Paxil) 10 MG tablet Take 1 tablet (10 mg) by mouth every morning. 90 tablet 3 polyethylene glycol, PEG, 3350 (MiraLax) 17 GM/SCOOP powder Take 17 g by mouth daily. 510 g 3 tamsulosin (Flomax) 0.4 MG 24 hr capsule TAKE 1 CAPSULE BY MOUTH EVERY DAY 90 capsule 1 telmisartan (MIcarDIS) 20 MG tablet TAKE 1 TABLET BY MOUTH EVERY DAY 90 tablet 1 carbidopa-levodopa (Sinemet) 25-100 MG tablet Take 1 tablet by mouth 3 times daily. 270 tablet 3 gabapentin (Neurontin) 400 MG capsule Take 3 capsules (1,200 mg) by mouth Nightly. Do not start before May 15, 2024. 270 capsule 3 propranolol LA (Inderal LA) 60 MG 24 hr capsule Take 1 capsule (60 mg) by mouth daily. Do not crush, chew, or split. 90 capsule 3 No current facility-administered medications for this visit. 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 Orthostatic hypotension MDD (major depressive disorder) Dyslipidemia Ascending aortic aneurysm (HCC) Renal cyst, right Essential hypertension Gram-negative sepsis, unspecified (HCC) Lightheadedness Acute cystitis without hematuria Elevated troponin Hyponatremia Pulmonary emphysema, unspecified emphysema type (HCC) Renal cancer, right (HCC) Rheumatoid arthritis without rheumatoid factor, multiple sites (HCC) Stage 3a chronic kidney disease (HCC) Past Medical History: Diagnosis Date 2019 novel coronavirus disease (COVID-19) 02/18/2023 Abnormal EKG Alcoholism ([facility]) ([facility]) 1989 Allergic 01/15/1992 Anxiety Arthritis 02/13/2023 Benign prostatic hyperplasia Not sure Cancer ([facility]) (HCC) 04/08/2024 Emphysema lung ([facility]) Enlarged prostate Erectile dysfunction 12 yea Hyperlipidemia Hypertension Kidney stone 02/13/2023 Parkinson's disease ([facility]) REM sleep behavior disorder Sepsis ([facility]) Tremor Urinary incontinence Controlled by medication Social History Tobacco Use Smoking status: Former Current packs/day: 0.00 Average packs/day: 1 pack/day for 25.0 years (25.0 ttl pk-yrs) Types: Cigarettes Start date: 11/26/1984 Quit date: 11/28/2008 Years since quittin.2 Smokeless tobacco: Never Tobacco comments: Current, daily use of nicotene pouches Substance Use Topics Alcohol use: Not Currently Past Surgical History: Procedure Laterality Date CYST REMOVAL 1970 Tailbone cyst CYSTOSCOPY 02/12/2023 C&P with stent KIDNEY STONE SURGERY 03/2023 KIDNEY SURGERY 02/15/2023 NEPHRECTOMY Right 04/08/2024 ROBOTIC RIGHT RADICAL NEPHRECTOMY - Right Family History Problem Relation Name Age of Onset Parkinsonism Mother Juhi Michael High Blood Pressure Mother Juhi Michael Depression Mother Juhi Michael Hearing loss Mother Juhi Michael Fainting Mother Juhi Michael Hypertension Mother Juhi Michael Mental illness Mother Juhi Michael Heart disease Father Nery Rodriguez Sr. Bipolar disorder Sister Amie Mental illness Sister Amie Health Maintenance Topic Date Due Diabetes Screening Never done IPV Vaccines (2 of 3 - Adult catch-up series) 09/13/1973 RSV Immunization for Adults (1 - Risk 60-74 years 1-dose series) Never done Zoster Vaccines (2 of 3) 12/24/2012 COVID-19 Vaccine ( - season) 2024 Medicare Annual Wellness (AWV) 09/28/2024 Colorectal Cancer Screening 07/11/2025 Depression Monitoring 08/24/2025 Lipid Panel 12/17/2028 DTaP/Tdap/Td Vaccines (3 - Td or Tdap) 01/20/2030 Influenza Vaccine Completed Pneumococcal Vaccine: 50+ Years Completed Hepatitis C Screening Completed RSV Immunization under 20 Months Aged Out HIB Vaccines Aged Out Hepatitis B Vaccines Aged Out Hepatitis A Vaccines Aged Out Meningococcal Vaccine Aged Out Rotavirus Vaccines Aged Out HPV Vaccines Aged Out Lung Cancer Screening Discontinued Objective BP 116/70 Pulse 71 Temp 36.3 C (97.3 F) Ht 6' 1 (1.854 m) Wt 235 lb (107 kg) SpO2 97% BMI 31.00 kg/m Physical Exam Data Reviewed and Summarized Labs: Lab Results Component Value Date WBC 4.2 08/26/2024 HGB 12.9 (L) 08/26/2024 HCT 37.4 (L) 08/26/2024 PLT 231 08/26/2024 TSH 1.092 12/29/2022 PSA 3.958 09/16/2021 INR 1.0 08/25/2020 Lab Results Component Value Date NA 135 08/26/2024 K 4.8 08/26/2024 CL 99 08/26/2024 CO2 28 08/26/2024 BUN 17 08/26/2024 CREATININE 1.38 (H) 08/26/2024 GLUCOSE 98 08/26/2024 CALCIUM 9.4 08/26/2024 PROT 7.1 08/26/2024 BILITOT 0.8 08/26/2024 ALKPHOS 76 08/26/2024 AST 33 08/26/2024 ALT 5 08/26/2024 @GLUCOSELAB@ Lab Results Component Value Date CHOL 191 12/18/2023 CHOL 217 (A) 03/18/2022 CHOL 197 09/16/2021 Lab Results Component Value Date TRIG 93 12/18/2023 TRIG 93 03/18/2022 TRIG 88 09/16/2021 Lab Results Component Value Date HDL 52 12/18/2023 HDL 55 03/18/2022 HDL 50 09/16/2021 Lab Results Component Value Date LDLCALC 120 (H) 12/18/2023 No results found for: VLDL Lab Results Component Value Date CHOLHDLRATIO 4 12/18/2023 CHOLHDLRATIO 4 03/18/2022 CHOLHDLRATIO 4 09/16/2021 Imaging/Testing: Transthoracic echocardiogram (TTE) complete with contrast, bubble, strain, and 3D PRN Left Ventricle: Left ventricle size is normal. Normal wall thickness. Normal left ventricular systolic function. The EF by visual approximation is 55%. EF by 2D Simpsons Biplane is 59%. Global longitudinal strain is -17.2%. Normal wall motion. Right Ventricle: Right ventricle size is normal. Low normal systolic function. Aortic Valve: Trace regurgitation. Left Atrium: Left atrium is mildly dilated. LA Vol Index A/L is 36 mL/m2. Aorta: Mildly dilated sinuses of Valsalva. Sinuses of Valsalva diameter is 4.3 cm. Mildly dilated ascending aorta. Ao ascending diameter is 4.2 cm. Shawanda Costa MD documented in this encounter [facility] 02-18-2025 Telephone encounter Note Pt is scheduled on 09/03/[address] Gibbons Called pt to offer sooner date. Pt accept 02/28/[address] Ruba fleming the arrival time of 6:00 am at [facility] Spoke w Angelica and have case moved EPIC schedule updated Order submitted Open Case request submitted Case # [id number] Rx called into pharmacy @ Endo packet mailed to patient Prep sent via Deeplink if pt acct active Pt is aware they will need a team otr truck driver to take them home from procedure. Must be family member or friend. They cannot use any ride programs. Ex: Uber, Lyft, SCAT, bus, etc...) [facility] 02-18-2025 Miscellaneous Notes Pt is scheduled on 09/03/[address] Gibbons Called pt to offer sooner date. Pt accept 02/28/[address] Ruba fleming the arrival time of 6:00 am at [facility] EPIC schedule updated Order submitted Open Case request submitted Case # Rx called into pharmacy @ Endo packet mailed to patient Prep sent via Carvoyanthart if pt acct active Pt is aware they will need a team otr truck driver to take them home from procedure. Must be family member or friend. They cannot use any ride programs. Ex: Uber, Lyft, SCAT, bus, etc...) Spoke with the pt, pt wants a call back on 01/28/2025 ----- Message from Mohan Haskins APRN - MEMORIAL COUNSELOR sent at 01/20/2025 8:39 AM EDT ----- Please schedule patient for EGD and colonoscopy-[facility]. Please schedule as soon as able. Thank you. documented in this encounter [facility] 02-18-2025 Miscellaneous Notes Pt is scheduled on 09/03/[address] Gibbons Called pt to offer sooner date. Pt accept 02/28/[address] Ruba fleming the arrival time of 6:00 am at [facility] Spoke w Angelica and have case moved EPIC schedule updated Order submitted Open Case request submitted Case # [id number] Rx called into pharmacy @ Endo packet mailed to patient Prep sent via Deeplink if pt acct active Pt is aware they will need a team otr truck driver to take them home from procedure. Must be family member or friend. They cannot use any ride programs. Ex: Uber, Lyft, SCAT, bus, etc...) Spoke with the pt, pt wants a call back on 01/28/2025 ----- Message from MELISSA Shea CNP sent at 01/20/2025 8:39 AM EDT ----- Please schedule patient for EGD and colonoscopy-[place] location. Please schedule as soon as able. Thank you. documented in this encounter [facility] 01-24-2025 Telephone encounter Note Spoke with the pt, pt wants a call back on 01/28/2025 [facility] 01-24-2025 Telephone encounter Note ----- Message from MELISSA Shea CNP sent at 01/20/2025 8:39 AM EDT ----- Please schedule patient for EGD and colonoscopy-[place] location. Please schedule as soon as able. Thank you. [facility] 01-24-2025 Miscellaneous Notes Spoke with the pt, pt wants a call back on 01/28/2025 ----- Message from MELISSA Shea CNP sent at 01/20/2025 8:39 AM EDT ----- Please schedule patient for EGD and colonoscopy-[place] location. Please schedule as soon as able. Thank you. documented in this encounter [facility] 01-24-2025 History of Present illness Narrative Patient was identified and seen today via Telehealth by agreement and consent. I used the following Telehealth technology: Audio and video capabilities. Patient location: Patient Location: Home. This patient encounter is appropriate and reasonable under the circumstances: Behavioral Health . The patient has been advised of the potential risks and limitations of this mode of treatment (including but not limited to the absence of in-person examination) and has agreed to be treated in a remote fashion in spite of them. Any and all of the patient's/patient's family's questions on this issue have been answered and I have made no promises or guarantees to the patient. The patient has also been advised to contact this office for worsening conditions or problems, and seek emergency medical treatment and/or call 911 if the patient deems either necessary. The patient stated that they are currently in the [facility]. If the patient is a minor, permission has been obtained by the parent or guardian for the patient to receive medical care at this visit. OUTPATIENT PSYCHIATRIC PROGRESS NOTE DATE: 01/24/25 TIME IN: 11:00 AM TIME OUT: 11:13 AM Nery Rodriguez is a 74 y.o.male CHIEF COMPLAINT: anxiety HISTORY OF PRESENTING ILLNESS: The patient is being seen in follow up for depression and anxiety. Today, he states that his symptoms have remained stable over the past several months. He denies worsening anxiety or depression over this time. He is following with GI for decreased appetite and constipation and neurology for parkinson's and tremor. His is doing better but still struggling to drive. He continues to take Klonopin sparingly. He endorses occasional concern for word finding difficulties which he plans to discuss further at his upcoming wellness visit as well. He denies other changes in cognitive or daily functioning. Overall, he is coping well and his mood remains stable. His affect appears bright and he is future oriented. He denies other side effects or acute concerns today. Last OV 04/23/24 BRIEF PSYCHIATRIC ROS: Mood: euthymic Sleep: fair Appetite: decreased Energy: fair Psychosis: denies Beckie: denies Suicidal ideation: denies Homicidal ideation: denies RECENT SUBSTANCE USE HISTORY: Alcohol: sober for over 30 years, h/o problematic use Tobacco: former smoker Marijuana: denies Other illicit substances: denies PAST PSYCHIATRIC HISTORY: Reviewed with patient, see HPI for updates SOCIAL HISTORY: Reviewed with patient, see HPI for updates FAMILY HISTORY: Reviewed with patient, see HPI for updates MEDICAL HISTORY: Reviewed with patient, see HPI for updates CURRENT MEDICATIONS: Current Outpatient Medications on File Prior to Visit Medication Sig Dispense Refill carbidopa-levodopa (Sinemet) 25-100 MG tablet Take 1 tablet by mouth 3 times daily. 270 tablet 3 clonazePAM (KlonoPIN) 0.5 MG tablet Take 0.5 tablets (0.25 mg) by mouth Daily as needed for anxiety. Do not start before June 20, 2024. 8 tablet 0 cyclobenzaprine (Flexeril) 10 MG tablet Take 1 tablet (10 mg) by mouth Nightly as needed for muscle spasms. 30 tablet 1 gabapentin (Neurontin) 400 MG capsule Take 3 capsules (1,200 mg) by mouth Nightly. Do not start before May 15, 2024. 270 capsule 3 hydrocortisone (Anusol-HC) 25 MG suppository Insert 1 suppository (25 mg) into the rectum 2 times daily for 10 days. 20 suppository 0 loratadine (Claritin) 10 MG tablet TAKE 1 TABLET (10 MG) BY MOUTH DAILY. 90 tablet 1 PARoxetine (Paxil) 10 MG tablet Take 1 tablet (10 mg) by mouth every morning. 90 tablet 3 [] polyethylene glycol (GaviLyte-G) 236 g solution Please take as directed by GI office for colonoscopy prep. 4000 mL 0 polyethylene glycol, PEG, 3350 (MiraLax) 17 GM/SCOOP powder Take 17 g by mouth daily. 510 g 3 propranolol LA (Inderal LA) 60 MG 24 hr capsule Take 1 capsule (60 mg) by mouth daily. Do not crush, chew, or split. 90 capsule 3 tamsulosin (Flomax) 0.4 MG 24 hr capsule TAKE 1 CAPSULE BY MOUTH EVERY DAY 90 capsule 1 telmisartan (MIcarDIS) 20 MG tablet TAKE 1 TABLET BY MOUTH EVERY DAY 90 tablet 1 No current facility-administered medications on file prior to visit. MEDICAL ROS: In the review of Constitutional, HEENT, Endocrine, Dermatologic, Cardiovascular, Respiratory, Gastrointestinal, Genitourinary, Hematologic, Musculoskeletal, Neurologic were reviewed and revealed tremor, constipation, decreased appetite Remainder of review of systems is negative except where described elsewhere in this note. BMI: There is no height or weight on file to calculate BMI. VITALS: There were no vitals filed for this visit. MENTAL STATUS EXAM: Level of consciousness: within normal limits and awake Appearance: well-appearing, in chair, fair grooming, and fair hygiene Behavior/Motor: no abnormalities noted. There are no abnormal involuntary movements. Gait is not observed. Attitude toward examiner: cooperative, attentive, and good eye contact Speech: spontaneous, normal rate, and normal volume Mood: euthymic Affect: mood-congruent Thought processes: linear, goal directed and coherent. No loosening of associations or tangentiality. Thought content: Significant for future orientation Suicidal ideation: denies suicidal ideation Homicidal ideation: denies homicidal ideation Delusions: no evidence of delusions Perceptual Disturbance: no evidence of active auditory or visual hallucinations Cognition: oriented to person, place, and time Concentration: succeeded Memory: intact Fund of knowledge: appropriate for level of education Abstract thinking: in tact Insight: fair Judgment: fair LABS: Reviewed ASSESSMENT: Problem List Items Addressed This Visit Other MDD (major depressive disorder) Other Visit Diagnoses Generalized anxiety disorder with panic attacks MEDICATION CHANGES: Continue Paxil 10 mg daily - anxiety/ depression, stable Klonopin 0.25 mg PRN - anxiety, stable (#8 for 3 months) RISK ASSESSMENT: Low as patient denies any current suicidal ideation, plan or intent. He expresses a desire to get better, engage in mental health treatment and exhibits future oriented thinking. He was also instructed to contact the office 8:00 AM -4:30 PM Monday through Monday in case of emergency. After business hours he has been instructed to go to his nearest emergency department for further evaluation and management. TREATMENT PLAN: - The patient participated in shared decision making around medication management and is agreeable to the plan - Side effects, risks, benefits and alternatives of the proposed treatment plan were discussed - Continue psychotherapy and medication management - Psychoeducation was provided around medication management and expectations of treatment - The patient's prognosis appears fair - Labs/ Monitoring: No labs indicated at this time Follow up in 12 weeks or sooner PRN - in person documented in this encounter [facility] 01-20-2025 History of Present illness Narrative Images from the original note were not included. [facility] - [place] [address] [place] [address] Dept: [phone] Dept Loc: [phone] Visit type: New Reason for Visit: New Patient (Pt presents for evaluation of rectal bleeding, seen by KAREN 2020Glendy 2019, pt has long history of rectal bleeding, no pain w/BM's (does have pain at times with hemorrhoid flare-up), last colonoscopy was about 6 or 7 years ago (done in [place])/) Assessment and Plan Problem List Items Addressed This Visit None Visit Diagnoses Loss of appetite - Primary Rectal bleeding Relevant Medications polyethylene glycol (GaviLyte-G) 236 g solution polyethylene glycol, PEG, 3350 (MiraLax) 17 GM/SCOOP powder Irregular bowel habits Relevant Medications polyethylene glycol, PEG, 3350 (MiraLax) 17 GM/SCOOP powder Hemorrhoids, unspecified hemorrhoid type Relevant Medications hydrocortisone (Anusol-HC) 25 MG suppository Chronic anemia 74 year old male referred by Dr. Costa, re: rectal bleeding. Patient reports intermittent rectal bleeding ongoing for years-previously attributed to hemorrhoids. Bleeding has changed over the past 9 months. Bleeding is with every bowel movement now, followed by stool leakage and pink tinged drainage. Has constipation at baseline-uses colace three times per week. Has BM when he takes colace. Notes if he uses daily, leakage worsens. [place] colon[place] ~ [place]. Also endorses decreased appetite over the past year. Has chronic anemia, most recent hgb 12.9/hct 37.4 (08/26/2024). No prior EGD. --schedule colonoscopy for further evaluation of rectal bleeding and irregular bowel movements, r/o underlying pathology --start Miralax daily --Anusol suppository BID X 10 days for hemorrhoids --schedule EGD along with colonoscopy due to loss of appetite --consider referral to colorectal surgery for further management of hemorrhoids pending results/response to above --EDU printed Advised patient to call office with new or worsening symptoms, questions, or concerns. Patient verbalized understanding and agreement of plan. Follow up in 2 months (on 03/22/2025), or if symptoms worsen or fail to improve, for colonoscopy follow-up . Subjective HPI Patient is referred by Dr. Costa, re: rectal bleeding. This patient is new to me however has been evaluated by another provider from this practice. Last OV was with Avtar Galicia on 09/21/2021. Patient was last evaluated regarding hepatic cyst. He has since established with Dr. Wick regarding hepatic cyst-plan for observation at this time. 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 Patient reports intermittent rectal bleeding ongoing for years. Initially felt this was related to hemorrhoids that he was able to manage. Uses preparation H OTC. For the past 9 months, has been having increased bleeding and stool leakage. Now having bleeding with every BM. Blood is bright red to pink. Will have leakage of stool and pink tinged drainage following BM. Has to line underwear with TP.Feels he does not have sensation/urge to have BM anymore. Using colace three times per week. Has BM when he uses. If he takes daily, leakage is worse. For the past year, has had decreased appetite. Weight stable. Denies nausea and vomiting. Prior colonoscopy: at least 6 to 7 years ago in [facility] Prior EGD: none Prior abdominal surgeries: right nephrectomy Family history of colon cancer: none NSAID use: none OAC: none Supplemental oxygen use: none Tobacco use: none Uses Zyn pouches EtOH use: none Illicit drug use: none Review of Systems Constitutional: Positive for appetite change. Negative for unexpected weight change. HENT: Negative for trouble swallowing and voice change. Respiratory: Negative for shortness of breath. Cardiovascular: Negative for chest pain. Gastrointestinal: Positive for anal bleeding and constipation. Negative for abdominal distention, abdominal pain, blood in stool, diarrhea, nausea, rectal pain and vomiting. Genitourinary: Negative for difficulty urinating. Skin: Negative for color change. Neurological: Positive for tremors. Negative for weakness. Allergies Allergen Reactions Pollen Extract Seasonal allergies. Ropinirole Constipation and sleepiness Current Outpatient Medications: carbidopa-levodopa (Sinemet) 25-100 MG tablet, Take 1 tablet by mouth 3 times daily., Disp: 270 tablet, Rfl: 3 loratadine (Claritin) 10 MG tablet, TAKE 1 TABLET (10 MG) BY MOUTH DAILY., Disp: 90 tablet, Rfl: 1 PARoxetine (Paxil) 10 MG tablet, Take 1 tablet (10 mg) by mouth every morning., Disp: 90 tablet, Rfl: 3 propranolol LA (Inderal LA) 60 MG 24 hr capsule, Take 1 capsule (60 mg) by mouth daily. Do not crush, chew, or split., Disp: 90 capsule, Rfl: 3 tamsulosin (Flomax) 0.4 MG 24 hr capsule, TAKE 1 CAPSULE BY MOUTH EVERY DAY, Disp: 90 capsule, Rfl: 1 telmisartan (MIcarDIS) 20 MG tablet, TAKE 1 TABLET BY MOUTH EVERY DAY, Disp: 90 tablet, Rfl: 1 clonazePAM (KlonoPIN) 0.5 MG tablet, Take 0.5 tablets (0.25 mg) by mouth Daily as needed for anxiety. Do not start before June 20, 2024., Disp: 8 tablet, Rfl: 0 cyclobenzaprine (Flexeril) 10 MG tablet, Take 1 tablet (10 mg) by mouth Nightly as needed for muscle spasms., Disp: 30 tablet, Rfl: 1 gabapentin (Neurontin) 400 MG capsule, Take 3 capsules (1,200 mg) by mouth Nightly. Do not start before May 15, 2024., Disp: 270 capsule, Rfl: 3 hydrocortisone (Anusol-HC) 25 MG suppository, Insert 1 suppository (25 mg) into the rectum 2 times daily for 10 days., Disp: 20 suppository, Rfl: 0 polyethylene glycol (GaviLyte-G) 236 g solution, Please take as directed by GI office for colonoscopy prep., Disp: 4000 mL, Rfl: 0 polyethylene glycol, PEG, 3350 (MiraLax) 17 GM/SCOOP powder, Take 17 g by mouth daily., Disp: 510 g, Rfl: 3 Patient Active Problem List Diagnosis Date Noted Date Diagnosed Renal cancer, right (HCC) 04/05/2024 Priority: Medium Pulmonary emphysema, unspecified emphysema type (HCC) 12/26/2023 Priority: Medium Gram-negative sepsis, unspecified (HCC) 02/11/2023 Priority: Medium Lightheadedness 02/11/2023 Priority: Medium Acute cystitis without hematuria 02/11/2023 Priority: Medium Elevated troponin 02/11/2023 Priority: Medium Hyponatremia 02/11/2023 Priority: Medium Renal cyst, right 01/26/2022 MDD (major depressive disorder) 12/21/2021 Dyslipidemia 10/26/2021 Ascending aortic aneurysm (HCC) 10/26/2021 Essential hypertension 10/26/2021 Hepatic cyst 09/21/2021 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 Orthostatic hypotension 09/20/2021 Abnormal EKG 09/15/2021 Social History Tobacco Use Smoking status: Former Current packs/day: 0.00 Average packs/day: 1 pack/day for 25.0 years (25.0 ttl pk-yrs) Types: Cigarettes Start date: 11/26/1984 Quit date: 11/28/2008 Years since quittin.1 Smokeless tobacco: Never Tobacco comments: Current, daily use of nicotene pouches Substance Use Topics Alcohol use: Not Currently Family History Problem Relation Name Age of Onset Parkinsonism Mother Juhisamantha Rodriguez High Blood Pressure Mother Juhisamantha Rodriguez Depression Mother Juhisamantha Rodriguez Hearing loss Mother Juhisamantha Rodriguez Fainting Mother Juhi Rodriguez Hypertension Mother Juhi Rodriguez Mental illness Mother Juhi Rodriguez Heart disease Father Nery Rodriguez Sr. Bipolar disorder Sister Amie Mental illness Sister Amie Objective BP 120/77 Pulse 60 Temp 36.7 C (98.1 F) (Temporal) Ht 6' 1 (1.854 m) Wt 233 lb 12.8 oz (106 kg) BMI 30.85 kg/m Physical Exam Constitutional: Appearance: Normal appearance. Comments: Pleasant HENT: Head: Normocephalic. Eyes: General: No scleral icterus. Cardiovascular: Rate and Rhythm: Normal rate and regular rhythm. Pulmonary: Effort: Pulmonary effort is normal. Breath sounds: Normal breath sounds. Abdominal: General: Bowel sounds are normal. There is no distension. Palpations: Abdomen is soft. There is no mass. Tenderness: There is no abdominal tenderness (patient denies ttp). There is no guarding or rebound. Hernia: No hernia is present. Skin: General: Skin is warm and dry. Coloration: Skin is not jaundiced. Neurological: General: No focal deficit present. Mental Status: He is alert and oriented to person, place, and time. Psychiatric: Mood and Affect: Mood normal. Behavior: Behavior normal. Data Reviewed and Summarized Labs: Lab Results Component Value Date WBC 4.2 08/26/2024 HGB 12.9 (L) 08/26/2024 HCT 37.4 (L) 08/26/2024 MCV 90.8 08/26/2024 PLT 231 08/26/2024 Lab Results Component Value Date GLUCOSE 98 08/26/2024 CALCIUM 9.4 08/26/2024 NA 135 08/26/2024 K 4.8 08/26/2024 CO2 28 08/26/2024 CL 99 08/26/2024 BUN 17 08/26/2024 CREATININE 1.38 (H) 08/26/2024 Lab Results Component Value Date ALT 5 08/26/2024 AST 33 08/26/2024 GGT 17 08/25/2020 ALKPHOS 76 08/26/2024 BILITOT 0.8 08/26/2024 Component Latest Ref Rng 08/26/2024 IRON, TOTAL 49 - 181 ug/dL 105 VITAMIN B12 239 - 931 pg/mL 746 Imaging/Testin07/25/2024 CT ABDOMEN AND PELVIS WITHOUT CONTRAST CLINICAL INDICATION: Right renal cancer surveillance Technique: Axial CT images were obtained of the abdomen and pelvis without the use of intravenous contrast. Images were reformatted in coronal and sagittal projections. Oral contrast: Not given Dose reduction was employed with automated exposure control. COMPARISON: 05/09/2024 FINDINGS: Evaluation of solid organs is limited by lack of contrast administration. Lung bases: No pleural effusion or focal consolidation. Chest wall: Unremarkable. Liver: The liver is normal in size and contour. Circumscribed hypoattenuating structures are noted in the liver, likely reflecting hepatic cysts. The largest cyst measures 9.2 x 7.9 cm in maximal axial dimensions. Biliary system: Intrahepatic biliary ductal dilatation is noted upstream from the largest hepatic cyst, slightly diminished as compared to prior examination. The gallbladder is normal in appearance. Spleen: The spleen is normal in size and contour. Pancreas: No significant abnormality. Adrenal glands: No significant abnormality. Kidneys/ Ureter: Postsurgical changes related to right-sided nephrectomy with interposition of bowel loops. No evidence of soft tissue attenuation to suggest disease recurrence. No evidence of hydroureteronephrosis. No evidence of nephrolithiasis. No evidence of focal renal lesions. Bladder: The bladder appears unremarkable. Pelvic organs: The prostate gland is enlarged. It measures up to 6.1 cm in maximal axial dimension. Bowel: Esophagus is unremarkable. The stomach is unremarkable. The small bowel is of normal caliber throughout without evidence of wall thickening or obstruction. The appendix is unremarkable. Diverticuli are noted throughout the colon. No stenotic lesion or mucosal thickening is noted to suggest diverticulitis. Mesentery/Intraperitoneum: No intraperitoneal free fluid or air is seen. Mesentery is normal in appearance. Lymph nodes: No lymphadenopathy Vasculature: Atherosclerotic calcifications are noted throughout the abdominal pelvic vasculature. Otherwise, the abdominal aorta is normal in caliber without evidence of aneurysmal dilatation. The venous vasculature appears grossly unremarkable. Abdominal wall: The abdominal wall soft tissues appear unremarkable. Osseous structures: No suspicious osseous lesions identified. Mild degenerative changes of the lumbar spine are observed. IMPRESSION: 1. No acute abdominopelvic process identified. 2. Status post right nephrectomy without evidence of local disease recurrence. 3. Multiple liver cysts, with persistent although improved intrahepatic biliary dilatation upstream from the largest cyst. Consider ERCP for further evaluation. 4. Diverticulosis without evidence of diverticulitis. 5. Prostatomegaly, correlate with concern for BPH and PSA values. 6. Other chronic findings as discussed. Report Dictated on Electronically Signed By: Matt Tao MD Electronically Signed Date/Time: 07/26/2024 1:12 PM EDT DAMARIS Shea 8:38 AM 01/20/25 documented in this encounter [facility] 01-20-2025 Instructions Merry Kong MA - 01/20/2025 8:00 AM EDT --Please call office with any questions or concerns! [phone] --Schedule EGD (upper endoscopy) and colonoscopy for further evaluation of the symptoms. [facility]. They will contact you from the office to schedule this procedure. --A prescription for GoLytely was sent to your pharmacy. This is the bowel prep for your colonoscopy. Please pick this up from the pharmacy and keep on hand. They will go over prep instructions when you are scheduled. --Begin medication: Miralax daily for constipation This has been sent to your pharmacy. --anusol suppositories, two times daily for 10 days for hemorrhoids This has also been sent to your pharmacy. --Avoid nonsteroidal anti-inflammatory (NSAID) medications such as ibuprofen (Advil), naproxen (Aleve), etc. These can contribute to abdominal pain and ulcers. Take Tylenol (acetaminophen) instead if needed for pain by following the instructions on the bottle. --Please see handout provided regarding additional recommendations for the symptoms including when to seek emergency care or further treatment. --Follow-up with PCP, and in GI clinic in about 2 month following the above evaluation and recommendations. This will be scheduled when your procedure is scheduled. The following attachments cannot be sent through Care Everywhere.Upper GI Endoscopy (Romanian)Colonoscopy (Romanian)documented in this encounter [facility] 12-05-2024 Telephone encounter Note Recent Visits Date Type Provider Dept 08/27/24 Office Visit Shawanda Costa MD [facility] 04/30/24 Office Visit Shawanda Costa MD [facility] 12/26/23 Office Visit Shawanda Costa MD [facility] Showing recent visits within past 365 days and meeting all other requirements Future Appointments Date Type Provider Dept 02/24/25 Appointment Shawanda Costa MD [facility] Showing future appointments within next 90 days and meeting all other requirements Requested Prescriptions Pending Prescriptions Disp Refills telmisartan (MIcarDIS) 20 MG tablet [Pharmacy Med Name: TELMISARTAN 20 MG TABLET] 90 tablet 1 Sig: TAKE 1 TABLET BY MOUTH EVERY DAY Provider: Shawanda Costa MD Verified pharmacy: yes Verified day(s) supplied: yes Verified refill(s) needed (previous prescription showing no refills in chart): Yes Have you received any controlled medications from any other provider? N/A Overdue for visit: No If yes - patient scheduled? N/A Most recent labs completed in chart? N/A None [facility] 12-05-2024 Miscellaneous Notes Recent Visits Date Type Provider Dept 08/27/24 Office Visit Shawanda Costa MD [facility] 04/30/24 Office Visit Shawanda Costa MD [facility] 12/26/23 Office Visit Shawanda Costa MD [facility] Showing recent visits within past 365 days and meeting all other requirements Future Appointments Date Type Provider Dept 02/24/25 Appointment Shawanda Costa MD [facility] Showing future appointments within next 90 days and meeting all other requirements Requested Prescriptions Pending Prescriptions Disp Refills telmisartan (MIcarDIS) 20 MG tablet [Pharmacy Med Name: TELMISARTAN 20 MG TABLET] 90 tablet 1 Sig: TAKE 1 TABLET BY MOUTH EVERY DAY Provider: Shawanda Costa MD Verified pharmacy: yes Verified day(s) supplied: yes Verified refill(s) needed (previous prescription showing no refills in chart): Yes Have you received any controlled medications from any other provider? N/A Overdue for visit: No If yes - patient scheduled? N/A Most recent labs completed in chart? N/A None documented in this encounter [facility] 11-13-2024 Telephone encounter Note Recent Visits Date Type Provider Dept 08/27/24 Office Visit Shawanda Costa MD [facility] 04/30/24 Office Visit Shawanda Costa MD [facility] 12/26/23 Office Visit Shawanda Costa MD [facility] Showing recent visits within past 365 days and meeting all other requirements Future Appointments No visits were found meeting these conditions. Showing future appointments within next 90 days and meeting all other requirements Requested Prescriptions Pending Prescriptions Disp Refills loratadine (Claritin) 10 MG tablet [Pharmacy Med Name: LORATADINE 10 MG TABLET] 90 tablet 1 Sig: TAKE 1 TABLET (10 MG) BY MOUTH DAILY. Provider: Shawanda Costa MD Verified pharmacy: yes Verified day(s) supplied: yes Verified refill(s) needed (previous prescription showing no refills in chart): Yes Have you received any controlled medications from any other provider? No Overdue for visit: No If yes - patient scheduled? Yes Most recent labs completed in chart? N/A None [facility] 11-13-2024 Miscellaneous Notes Recent Visits Date Type Provider Dept 08/27/24 Office Visit Shawanda Costa MD [facility] 04/30/24 Office Visit Shawanda Costa MD [facility] 12/26/23 Office Visit Shawanda Costa MD [facility] Showing recent visits within past 365 days and meeting all other requirements Future Appointments No visits were found meeting these conditions. Showing future appointments within next 90 days and meeting all other requirements Requested Prescriptions Pending Prescriptions Disp Refills loratadine (Claritin) 10 MG tablet [Pharmacy Med Name: LORATADINE 10 MG TABLET] 90 tablet 1 Sig: TAKE 1 TABLET (10 MG) BY MOUTH DAILY. Provider: Shawanda Costa MD Verified pharmacy: yes Verified day(s) supplied: yes Verified refill(s) needed (previous prescription showing no refills in chart): Yes Have you received any controlled medications from any other provider? No Overdue for visit: No If yes - patient scheduled? Yes Most recent labs completed in chart? N/A None documented in this encounter [facility] 11-13-2024 Telephone encounter Note Last OV:08/27/24 Scheduled:02/24/25 [facility] 11-13-2024 Miscellaneous Notes Last OV:08/27/24 Scheduled:02/24/25 documented in this encounter [facility] 11-11-2024 History of Present illness Narrative Images from the original note were not included. [facility] [address] [place] [address] [facility] [address] Dept: [phone] Dept Loc: [phone] Visit type: Established Patient Reason for Visit: Follow-up and Memory Loss Assessment and Plan 1. Essential tremor 2. REM behavioral disorder 3. Parkinson's disease without dyskinesia or fluctuating manifestations (HCC) - carbidopa-levodopa (Sinemet) 25-100 MG tablet; Take 1 tablet by mouth 3 times daily., Starting 11/11/2024, Until 02/09/2025, Normal Subjective HPI: He denies REM sleep behavior disorder and is not acting out dreams or being restless during the night. Gabapentin is working. He reports still has tremor. Mostly if he has to try to do fine, little things with his fingers flexed. No falls. He is overall doing well. He notices head tremor the most. REVIEW OF SYSTEMS: Review of Systems Constitutional: Negative for appetite change, chills, diaphoresis, fatigue, fever and unexpected weight change. HENT: Negative for dental problem and mouth sores. Eyes: Negative for discharge and itching. Respiratory: Negative for chest tightness and shortness of breath. Cardiovascular: Negative for chest pain, palpitations and leg swelling. Gastrointestinal: Negative for abdominal pain, nausea, rectal pain and vomiting. Endocrine: Negative for polydipsia, polyphagia and polyuria. Genitourinary: Negative for decreased urine volume, flank pain and genital sores. Musculoskeletal: Positive for back pain. Negative for arthralgias and neck pain. Skin: Negative for color change. Allergic/Immunologic: Negative for food allergies and immunocompromised state. Neurological: Positive for tremors. Negative for dizziness, syncope, weakness, light-headedness and headaches. Hematological: Negative for adenopathy. Does not bruise/bleed easily. Psychiatric/Behavioral: Negative for agitation, behavioral problems, confusion, decreased concentration, sleep disturbance and suicidal ideas. Allergies Allergen Reactions Pollen Extract Seasonal allergies. Ropinirole Constipation and sleepiness Current Outpatient Medications: clonazePAM (KlonoPIN) 0.5 MG tablet, Take 0.5 tablets (0.25 mg) by mouth Daily as needed for anxiety. Do not start before June 20, 2024., Disp: 8 tablet, Rfl: 0 cyclobenzaprine (Flexeril) 10 MG tablet, Take 1 tablet (10 mg) by mouth Nightly as needed for muscle spasms., Disp: 30 tablet, Rfl: 1 gabapentin (Neurontin) 400 MG capsule, Take 3 capsules (1,200 mg) by mouth Nightly. Do not start before May 15, 2024., Disp: 270 capsule, Rfl: 3 loratadine (Claritin) 10 MG tablet, Take 1 tablet (10 mg) by mouth daily., Disp: 90 tablet, Rfl: 1 PARoxetine (Paxil) 10 MG tablet, Take 1 tablet (10 mg) by mouth every morning., Disp: 90 tablet, Rfl: 3 tamsulosin (Flomax) 0.4 MG 24 hr capsule, Take 1 capsule (0.4 mg) by mouth daily., Disp: 90 capsule, Rfl: 1 telmisartan (MIcarDIS) 20 MG tablet, Take 1 tablet (20 mg) by mouth daily., Disp: 90 tablet, Rfl: 1 carbidopa-levodopa (Sinemet) 25-100 MG tablet, Take 1 tablet by mouth 3 times daily., Disp: 270 tablet, Rfl: 3 propranolol LA (Inderal LA) 60 MG 24 hr capsule, Take 1 capsule (60 mg) by mouth daily. Do not crush, chew, or split., Disp: 90 capsule, Rfl: 3 Past Medical History: Diagnosis Date 2019 novel coronavirus disease (COVID-19) 02/18/2023 Abnormal EKG Alcoholism ([facility]) ([facility]) 1989 Allergic 01/15/1992 Anxiety Arthritis 02/13/2023 Benign prostatic hyperplasia Not sure Cancer ([facility]) ([facility]) 04/08/2024 Emphysema lung ([facility]) Enlarged prostate Erectile dysfunction 12 yea Hyperlipidemia Hypertension Kidney stone 02/13/2023 Parkinson's disease ([facility]) REM sleep behavior disorder Sepsis ([facility]) Tremor Urinary incontinence Controlled by medication Social History Tobacco Use Smoking status: Former Current packs/day: 0.00 Average packs/day: 1 pack/day for 25.0 years (25.0 ttl pk-yrs) Types: Cigarettes Start date: 11/26/1984 Quit date: 11/28/2008 Years since quittin.9 Smokeless tobacco: Never Tobacco comments: Current, daily use of nicotene pouches Substance Use Topics Alcohol use: Not Currently Past Surgical History: Procedure Laterality Date CYST REMOVAL 1970 Tailbone cyst CYSTOSCOPY 02/12/2023 C&P with stent KIDNEY STONE SURGERY 03/2023 KIDNEY SURGERY 02/15/2023 NEPHRECTOMY Right 04/08/2024 ROBOTIC RIGHT RADICAL NEPHRECTOMY - Right Family History Problem Relation Name Age of Onset Parkinsonism Mother Juhi Rodriguez High Blood Pressure Mother Juhi Rodriguez Depression Mother Juhi Rodriguez Hearing loss Mother Juhi Rodriguez Fainting Mother Juhi Rodriguez Hypertension Mother Juhi Rodriguez Mental illness Mother Juhi Rodriguez Heart disease Father Nery Rodriguez Sr. Bipolar disorder Sister Amie Mental illness Sister Amie Objective Vitals: BP 114/73 (BP Location: Left arm, Patient Position: Sitting, BP Cuff Size: Adult) Pulse 73 Ht 6' 1 (1.854 m) Wt 226 lb 6.4 oz (103 kg) BMI 29.87 kg/m General Appearance: Patient is in no apparent distress. Head is normocephalic, atraumatic Cardiovascular: Regular rate and rhythm. No heart murmurs. No carotid bruit Neurologic: Mentation: Alert and oriented x 3 to person, place and time. Speech and Language: Speech and language normal Concentration and Attention: Concentration normal Memory: Memory normal Fund of Knowledge: Fund of knowledge normal Cranial Nerves: II, III, IV, V, , VII, VIII, IX, X, XI, XII examined and were intact. No masked facies unlike prior exams. Head titubation noticed occl. Motor: Strength: Strength 5 out of 5 with normal tone Alternating Movements: Normal Cogwheel Rigidity: None Tone: Tone is normal Tremor / Involuntary Movements: Left>right. Today it is more vertical than torsional like it has been before. Has head titubation with exertion. Deep Tendon Reflexes: 1 out of 4 symmetrical in all four limbs. Coordination: Normal coordination upper and lower extremities Gait and Station: Station is normal. Gait is pretty much normal just less swing on the left Data Reviewed and Summarized DIAGNOSTIC TESTING CBC: Lab Results Component Value Date WBC 4.2 08/26/2024 RBC 4.12 (L) 08/26/2024 HGB 12.9 (L) 08/26/2024 HCT 37.4 (L) 08/26/2024 MCV 90.8 08/26/2024 MCH 31.3 08/26/2024 MCHC 34.5 08/26/2024 RDW 12.1 08/26/2024 PLT 231 08/26/2024 MPV 8.7 (L) 08/26/2024 CMP: Lab Results Component Value Date NA 135 08/26/2024 K 4.8 08/26/2024 CL 99 08/26/2024 CO2 28 08/26/2024 BUN 17 08/26/2024 CREATININE 1.38 (H) 08/26/2024 CREATININE 0.89 03/18/2022 GLUCOSE 98 08/26/2024 PROT 7.1 08/26/2024 CALCIUM 9.4 08/26/2024 BILITOT 0.8 08/26/2024 ALKPHOS 76 08/26/2024 AST 33 08/26/2024 ALT 5 08/26/2024 BMP: Lab Results Component Value Date NA 135 08/26/2024 K 4.8 08/26/2024 CL 99 08/26/2024 CO2 28 08/26/2024 BUN 17 08/26/2024 CREATININE 1.38 (H) 08/26/2024 CREATININE 0.89 03/18/2022 CALCIUM 9.4 08/26/2024 GLUCOSE 98 08/26/2024 PT/INR: Lab Results Component Value Date PROTIME 10.8 08/25/2020 INR 1.0 08/25/2020 PTT: No results found for: APTT, PTT[APTT} FLP: Lab Results Component Value Date TRIG 93 12/18/2023 HDL 52 12/18/2023 LDLCALC 120 (H) 12/18/2023 TSH: Lab Results Component Value Date TSH 1.092 12/29/2022 VITAMIN B12: VITAMIN B12 Date Value Ref Range Status 08/26/2024 746 239 - 931 pg/mL Final No results found for: PHENYTOIN, PHENOBARB, VALPROATE, CBMZ No components found for: TOPIRA @RESULTINGLABINFO@ FERRITIN Date Value Ref Range Status 08/25/2020 96 18 - 464 ng/mL Final No results found for: KELLIE, IMMUNOGLOBUL, OLIGOBANDS [facility] HEPATITIS C ANTIBODY Date Value Ref Range Status 08/25/2020 NOT DETECTED Not-Detected NA Final Comment: Patients with DETECTED Hepatitis C Ab results should have a new specimen submitted for supplemental testing with a Hepatitis C Quantitative RNA assay (viral load), if clinically indicated. JOSE Titer Date Value Ref Range Status 12/28/2023 <1:80 <1:80 titer Final FERRITIN: Lab Results Component Value Date FERRITIN 96 08/25/2020 ---- IMPRESSION and PLAN: Diagnosis Plan 1. Essential tremor 2. REM behavioral disorder 3. Parkinson's disease without dyskinesia or fluctuating manifestations (HCC) carbidopa-levodopa (Sinemet) 25-100 MG tablet He is to change the propranolol from 20 BID to 60 mg LA once daily. This was the dominant tremor. Gabapentin is working without side effects. This looks great on exam. Will continue the carb-levo. Breanna Tolliver MD I spent 20 minutes caring for this patient today, reviewing labs, records, seeing the patient, documenting in the record and arranging for studies. documented in this encounter [facility] 09-30-2024 History of Present illness Narrative Patient was identified and seen today via Telehealth by agreement and consent. I used the following Telehealth technology: Audio and video capabilities. Patient location: [place] Patient Location: Home. This patient encounter is appropriate and reasonable under the circumstances: Behavioral Health . The patient has been advised of the potential risks and limitations of this mode of treatment (including but not limited to the absence of in-person examination) and has agreed to be treated in a remote fashion in spite of them. Any and all of the patient's/patient's family's questions on this issue have been answered and I have made no promises or guarantees to the patient. The patient has also been advised to contact this office for worsening conditions or problems, and seek emergency medical treatment and/or call 911 if the patient deems either necessary. The patient stated that they are currently in the state [facility]. If the patient is a minor, permission has been obtained by the parent or guardian for the patient to receive medical care at this visit. OUTPATIENT PSYCHIATRIC PROGRESS NOTE DATE: 09/30/24 TIME IN: 10:22 AM TIME OUT: 10:33 AM Nery Rodriguez is a 74 y.o.male CHIEF COMPLAINT: okay HISTORY OF PRESENTING ILLNESS: The patient is being seen in follow up for depression and anxiety. Today, he states that his symptoms have remained stable over the past several months. He denies worsening symptoms of depression and notes two instances of generalized anxiety which he attributes to his 's health status. She is now home from the nursing facility and has more recently become more independent with toileting which has been helpful. He has also started to watch his grandchild twice a week. He continues to take Klonopin sparingly and remains in good physical health. He denies recent panic attacks. Overall, he is coping well and his mood remains stable. His affect appears bright and he is future oriented. He denies other side effects or acute concerns today. BRIEF PSYCHIATRIC ROS: Mood: euthymic Sleep: fair Appetite: decreased but still fair Energy: fair Psychosis: denies Beckie: denies Suicidal ideation: denies Homicidal ideation: denies RECENT SUBSTANCE USE HISTORY: Alcohol: sober for over 30 years, h/o problematic use Tobacco: former smoker Marijuana: denies Other illicit substances: denies PAST PSYCHIATRIC HISTORY: Reviewed with patient, see HPI for updates SOCIAL HISTORY: Reviewed with patient, see HPI for updates FAMILY HISTORY: Reviewed with patient, see HPI for updates MEDICAL HISTORY: Reviewed with patient, see HPI for updates CURRENT MEDICATIONS: Current Outpatient Medications on File Prior to Visit Medication Sig Dispense Refill carbidopa-levodopa (Sinemet) 25-100 MG tablet Take 1 tablet by mouth 3 times daily. 270 tablet 1 clonazePAM (KlonoPIN) 0.5 MG tablet Take 0.5 tablets (0.25 mg) by mouth Daily as needed for anxiety. Do not start before June 20, 2024. 8 tablet 0 cyclobenzaprine (Flexeril) 10 MG tablet Take 1 tablet (10 mg) by mouth Nightly as needed for muscle spasms. 30 tablet 1 gabapentin (Neurontin) 400 MG capsule Take 3 capsules (1,200 mg) by mouth Nightly. Do not start before May 15, 2024. 270 capsule 3 loratadine (Claritin) 10 MG tablet Take 1 tablet (10 mg) by mouth daily. 90 tablet 1 PARoxetine (Paxil) 10 MG tablet Take 1 tablet (10 mg) by mouth every morning. 90 tablet 3 propranolol (Inderal) 20 MG tablet TAKE 1 TABLET BY MOUTH TWICE A DAY 180 tablet 1 tamsulosin (Flomax) 0.4 MG 24 hr capsule Take 1 capsule (0.4 mg) by mouth daily. 90 capsule 1 telmisartan (MIcarDIS) 20 MG tablet Take 1 tablet (20 mg) by mouth daily. 90 tablet 1 No current facility-administered medications on file prior to visit. MEDICAL ROS: In the review of Constitutional, HEENT, Endocrine, Dermatologic, Cardiovascular, Respiratory, Gastrointestinal, Genitourinary, Hematologic, Musculoskeletal, Neurologic were reviewed and revealed no complaints Remainder of review of systems is negative except where described elsewhere in this note. BMI: There is no height or weight on file to calculate BMI. VITALS: There were no vitals filed for this visit. MENTAL STATUS EXAM: Level of consciousness: within normal limits and awake Appearance: well-appearing, in chair, fair grooming, and fair hygiene Behavior/Motor: no abnormalities noted. There are no abnormal involuntary movements. Gait is not observed. Attitude toward examiner: cooperative, attentive, and good eye contact Speech: spontaneous, normal rate, and normal volume Mood: euthymic Affect: mood-congruent Thought processes: linear, goal directed and coherent. No loosening of associations or tangentiality. Thought content: Significant for future orientation Suicidal ideation: denies suicidal ideation Homicidal ideation: denies homicidal ideation Delusions: no evidence of delusions Perceptual Disturbance: no evidence of active auditory or visual hallucinations Cognition: oriented to person, place, and time Concentration: succeeded Memory: intact Fund of knowledge: appropriate for level of education Abstract thinking: in tact Insight: fair Judgment: fair LABS: Reviewed ASSESSMENT: Problem List Items Addressed This Visit Other MDD (major depressive disorder) Other Visit Diagnoses Generalized anxiety disorder with panic attacks MEDICATION CHANGES: Continue Paxil 10 mg daily - anxiety/ depression, stable Klonopin 0.25 mg PRN - anxiety, stable (#8 for 3 months) RISK ASSESSMENT: Low as patient denies any current suicidal ideation, plan or intent. He expresses a desire to get better, engage in mental health treatment and exhibits future oriented thinking. He was also instructed to contact the office 8:00 AM -4:30 PM Monday through Monday in case of emergency. After business hours he has been instructed to go to his nearest emergency department for further evaluation and management. TREATMENT PLAN: - The patient participated in shared decision making around medication management and is agreeable to the plan - Side effects, risks, benefits and alternatives of the proposed treatment plan were discussed - Continue psychotherapy and medication management - Psychoeducation was provided around medication management and expectations of treatment - The patient's prognosis appears fair - Labs/ Monitoring: No labs indicated at this time Follow up in 12 weeks documented in this encounter [facility] 09-09-2024 History of Present illness Narrative Hepatobiliary Surgery (HPB) & Surgical Oncology Consultation Chief complaint: None referral for evaluation of a liver cyst HPI: 74-year-old male referral for hepatic cyst 09/09/2024 -this is a 74-year-old male who recently underwent a nephrectomy with Dr. Quintero for a tumor of the kidney. Preoperative cross-sectional imaging appeared to demonstrate a cyst in the left lobe of the liver. Patient denies any pain, nausea, vomiting, loss of appetite, early satiety, jaundice or any type of symptoms. He is here for evaluation of this cyst. Denies any family history of cancer or polycystic liver disease. Non-smoker but user of oral nicotine nondrinker. PMH: Past Medical History: Diagnosis Date 2019 novel coronavirus disease (COVID-19) 02/18/2023 Abnormal EKG Alcoholism (CMS/HCC) (HCC) 1989 Allergic 01/15/1992 Anxiety Arthritis 02/13/2023 Benign prostatic hyperplasia Not sure Cancer (CMS/HCC) (HCC) 04/08/2024 Emphysema lung (HCC) Enlarged prostate Erectile dysfunction 12 yea Hyperlipidemia Hypertension Kidney stone 02/13/2023 Parkinson's disease (HCC) REM sleep behavior disorder Sepsis (HCC) Tremor Urinary incontinence Controlled by medication PSH: Past Surgical History: Procedure Laterality Date CYST REMOVAL 1969 Tailbone cyst CYSTOSCOPY 02/12/2023 C&P with stent KIDNEY STONE SURGERY 03/2023 KIDNEY SURGERY 02/15/2023 NEPHRECTOMY Right 04/08/2024 ROBOTIC RIGHT RADICAL NEPHRECTOMY - Right FH: Family History Problem Relation Name Age of Onset Parkinsonism Mother Juhi Rodriguez High Blood Pressure Mother Juhi Rodriguez Depression Mother Juhi Rodriguez Hearing loss Mother Juhi Rodriguez Fainting Mother Juhi Rodriguez Hypertension Mother Juhi Rodriguez Mental illness Mother Juhi Rodriguez Heart disease Father Nery Rodriguez Sr. Bipolar disorder Sister Amie Mental illness Sister Amie Social: Social Drivers of Health Tobacco Use: Medium Risk (09/02/2024) Patient History Smoking Tobacco Use: Former Smokeless Tobacco Use: Never Passive Exposure: Not on file Alcohol Use: Not At Risk (04/08/2024) AUDIT-C Frequency of Alcohol Consumption: Never Average Number of Drinks: Patient does not drink Frequency of Binge Drinking: Never Financial Resource Strain: Low Risk (04/08/2024) Overall Financial Resource Strain (CARDIA) Difficulty of Paying Living Expenses: Not hard at all Food Insecurity: No Food Insecurity (04/08/2024) Hunger Vital Sign Worried About Running Out of Food in the Last Year: Never true Ran Out of Food in the Last Year: Never true Transportation Needs: No Transportation Needs (04/08/2024) PRAPARE - Transportation Lack of Transportation (Medical): No Lack of Transportation (Non-Medical): No Physical Activity: Sufficiently Active (04/08/2024) Exercise Vital Sign Days of Exercise per Week: 5 days Minutes of Exercise per Session: 30 min Stress: No Stress Concern Present (04/08/2024) [employer] - Occupational Stress Questionnaire Feeling of Stress : Only a little Social Connections: Socially Isolated (04/08/2024) Social Connection and Isolation Panel [NHANES] Frequency of Communication with Friends and Family: Never Frequency of Social Gatherings with Friends and Family: Twice a week Attends Orthodoxy Services: Never Active Member of Clubs or Organizations: No Attends Club or Organization Meetings: Never Marital Status: Intimate Partner Violence: Not At Risk (02/11/2023) Humiliation, Afraid, Rape, and Kick questionnaire Fear of Current or Ex-Partner: No Emotionally Abused: No Physically Abused: No Sexually Abused: No Depression: At risk (08/24/2024) PHQ-2 PHQ-2 Score: 3 Housing Stability: Low Risk (04/08/2024) Housing Stability Vital Sign Unable to Pay for Housing in the Last Year: No Number of Times Moved in the Last Year: 0 Homeless in the Last Year: No Utilities: Not At Risk (04/08/2024) [facility] Utilities Threatened with loss of utilities: No Health Literacy: Adequate Health Literacy (04/08/2024) B1300 Health Literacy Frequency of need for help with medical instructions: Never Medications: Medication Documentation Review Audit Reviewed by Syeda Perez MA (Passenger Elevator Operator) on 09/09/24 at 1351 Medication Order Taking? Sig Documenting Provider Last Dose Status carbidopa-levodopa (Sinemet) 25-100 MG tablet [id number] Take 1 tablet by mouth 3 times daily. Breanna Tolliver MD 08/27/24 2359 clonazePAM (KlonoPIN) 0.5 MG tablet [id number] Yes Take 0.5 tablets (0.25 mg) by mouth Daily as needed for anxiety. Do not start before June 20, 2024. Dany Healy DO Active cyclobenzaprine (Flexeril) 10 MG tablet [id number] Yes Take 1 tablet (10 mg) by mouth Nightly as needed for muscle spasms. Shawanda Costa MD Active gabapentin (Neurontin) 400 MG capsule [id number] Yes Take 3 capsules (1,200 mg) by mouth Nightly. Do not start before May 15, 2024. Breanna Tolliver MD Active loratadine (Claritin) 10 MG tablet [id number] Yes Take 1 tablet (10 mg) by mouth daily. Shawanda Costa MD Active PARoxetine (Paxil) 10 MG tablet [id number] Yes Take 1 tablet (10 mg) by mouth every morning. Dany Healy DO Active propranolol (Inderal) 20 MG tablet [id number] Yes TAKE 1 TABLET BY MOUTH TWICE A DAY Breanna Don PA-C Active tamsulosin (Flomax) 0.4 MG 24 hr capsule [id number] Yes Take 1 capsule (0.4 mg) by mouth daily. Shawanda Costa MD Active telmisartan (MIcarDIS) 20 MG tablet [id number] Yes Take 1 tablet (20 mg) by mouth daily. Shawanda Costa MD Active Allergies: Allergies Allergen Reactions Pollen Extract Seasonal allergies. Ropinirole Constipation and sleepiness ROS: Negative unless otherwise noted in HPI Physical Exam: General - patient awake alert oriented x 3 no acute distress Cardiovascular - normal rate and rhythm pulses intact Respiratory -airway intact, respirations no tachypnea or use of accessory muscles Abdominal - abdomen is soft nontender nondistended Musculoskeletal - normal range of motion of bilateral upper and lower extremities Lymphatic - no palpable lymphadenopathy Neurologic -gross motor and sensory intact Skin/wound -normal inspection of skin without any rashes Diagnostics: Lab Results Component Value Date GLUCOSE 98 08/26/2024 CALCIUM 9.4 08/26/2024 NA 135 08/26/2024 K 4.8 08/26/2024 CO2 28 08/26/2024 CL 99 08/26/2024 BUN 17 08/26/2024 CREATININE 1.38 (H) 08/26/2024 Lab Results Component Value Date WBC 4.2 08/26/2024 HGB 12.9 (L) 08/26/2024 HCT 37.4 (L) 08/26/2024 MCV 90.8 08/26/2024 PLT 231 08/26/2024 Lab Results Component Value Date ALT 5 08/26/2024 AST 33 08/26/2024 GGT 17 08/25/2020 ALKPHOS 76 08/26/2024 BILITOT 0.8 08/26/2024 No results found for: PTT Lab Results Component Value Date INR 1.0 08/25/2020 PROTIME 10.8 08/25/2020 Assessment/Plan: 74-year-old male with hepatic cyst 09/09/2024 -I personally reviewed the cross-sectional imaging and there is a cyst about 9 cm in segment 4 of the liver. I do not appreciate any significant biliary ductal dilatation. There does not appear to be biliary ductal communication based on previous MRI. The cyst is incidental and does not appear to be symptomatic. Therefore I would suggest observation of the cyst as it does not have malignant potential. Can perform a follow-up MRCP in 4 months time. If labs such as bilirubin tend to trend up and it is direct in nature, this might suggest compression. Otherwise we can continue with safe observation of the cyst without surgical intervention. Unroofing of the cyst would be indicated if there is compression of the stomach from cyst growth and/or biliary compression. Tavo Wick MD FACS Hepatobiliary Surgery (HPB) and Surgical Oncology Department of Surgery [facility] documented in this encounter [facility] 09-09-2024 Note Hepatobiliary Surger y (HPB) & Surgical Oncology Consultation Chief complaint: None referral for evaluation of a liver cyst HPI: 74-year-old male referral for hepatic cyst 09/09/2024 -this is a 74-year-old male who recently underwent a nephrectomy with Dr. Quintero for a tumor of the kidney. Preoperative cross-sectional imaging appeared to demonstrate a cyst in the left lobe of the liver. Patient denies any pain, nausea, vomiting, loss of appetite, early satiety, jaundice or any type of symptoms. He is here for evaluation of this cyst. Denies any family history of cancer or polycystic liver disease. Non-smoker but user of oral nicotine nondrinker. PMH: Past Medical History: Diagnosis Date 2019 novel coronavirus disease (COVID-19) 02/18/2023 Abnormal EKG Alcoholism (CMS/HCC) (HCC) 1989 Allergic 01/15/1992 Anxiety Arthritis 02/13/2023 Benign prostatic hyperplasia Not sure Cancer (CMS/HCC) (HCC) 04/08/2024 Emphysema lung (HCC) Enlarged prostate Erectile dysfunction 12 yea Hyperlipidemia Hypertension Kidney stone 02/13/2023 Parkinson's disease (HCC) REM sleep behavior disorder Sepsis (HCC) Tremor Urinary incontinence Controlled by medication PSH: Past Surgical History: Procedure Laterality Date CYST REMOVAL 1970 Tailbone cyst CYSTOSCOPY 02/12/2023 C&P with stent KIDNEY STONE SURGERY 03/2023 KIDNEY SURGERY 02/15/2023 NEPHRECTOMY Right 04/08/2024 ROBOTIC RIGHT RADICAL NEPHRECTOMY - Right FH: Family History Problem Relation Name Age of Onset Parkinsonism Mother Juhi Michael High Blood Pressure Mother Juhi Michael Depression Mother Juhi Michael Hearing loss Mother Juhi Michael Fainting Mother Juhi Michael Hypertension Mother Juhi Michael Mental illness Mother Juhi Michael Heart disease Father Nery Pérezel Sr. Bipolar disorder Sister Amie Mental illness Sister Amie Social: Social Drivers of Health Tobacco Use: Medium Risk (09/02/2024) Patient History Smoking Tobacco Use: Former Smokeless Tobacco Use: Never Passive Exposure: Not on file Alcohol Use: Not At Risk (04/08/2024) AUDIT-C Frequency of Alcohol Consumption: Never Average Number of Drinks: Patient does not drink Frequency of Binge Drinking: Never Financial Resource Strain: Low Risk (04/08/2024) Overall Financial Resource Strain (CARDIA) Difficulty of Paying Living Expenses: Not hard at all Food Insecurity: No Food Insecurity (04/08/2024) Hunger Vital Sign Worried About Running Out of Food in the Last Year: Never true Ran Out of Food in the Last Year: Never true Transportation Needs: No Transportation Needs (04/08/2024) PRAPARE - Transportation Lack of Transportation (Medical): No Lack of Transportation (Non-Medical): No Physical Activity: Sufficiently Active (04/08/2024) Exercise Vital Sign Days of Exercise per Week: 5 days Minutes of Exercise per Session: 30 min Stress: No Stress Concern Present (04/08/2024) [employer] - Occupational Stress Questionnaire Feeling of Stress : Only a little Social Connections: Socially Isolated (04/08/2024) Social Connection and Isolation Panel [NHANES] Frequency of Communication with Friends and Family: Never Frequency of Social Gatherings with Friends and Family: Twice a week Attends Orthodoxy Services: Never Active Member of Clubs or Organizations: No Attends Club or Organization Meetings: Never Marital Status: Intimate Partner Violence: Not At Risk (02/11/2023) Humiliation, Afraid, Rape, and Kick questionnaire Fear of Current or Ex-Partner: No Emotionally Abused: No Physically Abused: No Sexually Abused: No Depression: At risk (08/24/2024) PHQ-2 PHQ-2 Score: 3 Housing Stability: Low Risk (04/08/2024) Housing Stability Vital Sign Unable to Pay for Housing in the Last Year: No Number of Times Moved in the Last Year: 0 Homeless in the Last Year: No Utilities: Not At Risk (04/08/2024) [facility] Utilities Threatened with loss of utilities: No Health Literacy: Adequate Health Literacy (04/08/2024) B1300 Health Literacy Frequency of need for help with medical instructions: Never Medications: Medication Documentation Review Audit Reviewed by Syeda Perez MA (Passenger Elevator Operator) on 09/09/24 at 1351 Medication Order Taking? Sig Documenting Provider Last Dose Status carbidopa-levodopa (Sinemet) 25-100 MG tablet [id number] Take 1 tablet by mouth 3 times daily. Breanna Tolliver MD 08/27/24 2638 clonazePAM (KlonoPIN) 0.5 MG tablet [id number] Yes Take 0.5 tablets (0.25 mg) by mouth Daily as needed for anxiety. Do not start before June 20, 2024. Dany Healy, Active cyclobenzaprine (Flexeril) 10 MG tablet [id number] Yes Take 1 tablet (10 mg) by mouth Nightly as needed for muscle spasms. Shawanda Costa MD Active gabapentin (Neurontin) 400 MG capsule [id number] Yes Take 3 capsules (1,200 mg) by mouth Nightly. Do not start before May 15, 2024. Breanna Tolliver MD Active lorat (more content not included)... [facility] 09-02-2024 History of Present illness Narrative [facility] Cardiology Note Visit type: Established : 1950 Chief Complaint: Chief Complaint Patient presents with 1 Year Follow-up Other Mildly dilated ascending aorta History of Present Illness: Nery Rodriguez is a 74 y.o. male with history of HTN, RBBB/LAFB, mildly dilated aorta, anxiety who is here for a routine followup. He is doing well. He denies chest pain,sob,orthopnea or pnd . No palpitations. Upon reviewing chart, he had right nephrectomy in 03/2024 due to renal cancer. He reports he passed out once the day after the surgery. He felt lightheaded, his BP was supposedly lower side; may have been due to the pain medication (oxycodone) or dehydration . He increased his fluid intake and stopped pain medications . Since then has had no recurrence. He does aerobic exercise everyday. Past Medical History: Past Medical History: Diagnosis Date 2019 novel coronavirus disease (COVID-19) 02/18/2023 Abnormal EKG Allergic 01/15/1992 Anxiety Arthritis 02/13/2023 Benign prostatic hyperplasia Not sure Emphysema lung (HCC) Enlarged prostate Erectile dysfunction 12 yea Hyperlipidemia Hypertension Kidney stone 02/13/2023 Parkinson's disease (HCC) REM sleep behavior disorder Sepsis (HCC) Tremor Urinary incontinence Controlled by medication Past Surgical History Past Surgical History: Procedure Laterality Date CYST REMOVAL 1970 Tailbone cyst CYSTOSCOPY 02/12/2023 C&P with stent KIDNEY STONE SURGERY 03/2023 KIDNEY SURGERY 02/15/2023 NEPHRECTOMY Right 04/08/2024 ROBOTIC RIGHT RADICAL NEPHRECTOMY - Right Family History Family History Problem Relation Name Age of Onset Parkinsonism Mother Mother High Blood Pressure Mother Mother Depression Mother Mother Hearing loss Mother Mother Fainting Mother Mother Hypertension Mother Mother Mental illness Mother Mother Heart disease Father Nery Rodriguez Sr. Bipolar disorder Sister Bailey Rodriguez Mental illness Sister Bailey Rodriguez Social History Social History Tobacco Use Smoking status: Former Current packs/day: 0.00 Average packs/day: 1 pack/day for 25.0 years (25.0 ttl pk-yrs) Types: Cigarettes Start date: 11/26/1984 Quit date: 11/28/2008 Years since quittin.7 Smokeless tobacco: Never Tobacco comments: Current, daily use of nicotene pouches Vaping Use Vaping status: Never Used Substance Use Topics Alcohol use: Not Currently Drug use: Never Comment: Caffeine: 1 cup of coffee; occasionally in afternoon Allergies: Allergies Allergen Reactions Pollen Extract Seasonal allergies. Ropinirole Constipation and sleepiness Medications: Current Outpatient Medications: clonazePAM (KlonoPIN) 0.5 MG tablet, Take 0.5 tablets (0.25 mg) by mouth Daily as needed for anxiety. Do not start before June 20, 2024., Disp: 8 tablet, Rfl: 0 loratadine (Claritin) 10 MG tablet, Take 1 tablet (10 mg) by mouth daily., Disp: 90 tablet, Rfl: 1 PARoxetine (Paxil) 10 MG tablet, Take 1 tablet (10 mg) by mouth every morning., Disp: 90 tablet, Rfl: 3 propranolol (Inderal) 20 MG tablet, TAKE 1 TABLET BY MOUTH TWICE A DAY, Disp: 180 tablet, Rfl: 1 tamsulosin (Flomax) 0.4 MG 24 hr capsule, Take 1 capsule (0.4 mg) by mouth daily., Disp: 90 capsule, Rfl: 1 telmisartan (MIcarDIS) 20 MG tablet, Take 1 tablet (20 mg) by mouth daily., Disp: 90 tablet, Rfl: 1 carbidopa-levodopa (Sinemet) 25-100 MG tablet, Take 1 tablet by mouth 3 times daily., Disp: 270 tablet, Rfl: 1 cyclobenzaprine (Flexeril) 10 MG tablet, Take 1 tablet (10 mg) by mouth Nightly as needed for muscle spasms., Disp: 30 tablet, Rfl: 1 gabapentin (Neurontin) 400 MG capsule, Take 3 capsules (1,200 mg) by mouth Nightly. Do not start before May 15, 2024., Disp: 270 capsule, Rfl: 3 Review of Systems: Review of Systems Constitutional: Negative for activity change, chills, diaphoresis, fatigue and fever. HENT: Negative for nosebleeds and trouble swallowing. Eyes: Negative for discharge and visual disturbance. Respiratory: Negative for apnea, cough, chest tightness, shortness of breath and wheezing. Cardiovascular: Negative for chest pain, palpitations and leg swelling. Gastrointestinal: Negative for abdominal distention, abdominal pain, blood in stool, diarrhea, nausea and vomiting. Endocrine: Negative for cold intolerance and heat intolerance. Genitourinary: Negative for hematuria. Musculoskeletal: Negative for gait problem and myalgias. Skin: Negative for color change and rash. Neurological: Negative for dizziness, seizures, syncope, facial asymmetry, speech difficulty, weakness, light-headedness, numbness and headaches. Hematological: Does not bruise/bleed easily. Psychiatric/Behavioral: Negative for dysphoric mood. Physical Examination: Vitals: Vitals: 09/02/24 1007 BP: 110/70 BP Location: Right arm Patient Position: Sitting BP Cuff Size: Large adult Pulse: 59 SpO2: 95% Weight: 221 lb 9.6 oz (101 kg) Height: 6' 1 (1.854 m) Body mass index is 29.24 kg/m . Physical Exam Constitutional: Appearance: Normal appearance. HENT: Head: Normocephalic. Mouth/Throat: Pharynx: No oropharyngeal exudate. Eyes: General: No scleral icterus. Right eye: No discharge. Left eye: No discharge. Cardiovascular: Rate and Rhythm: Normal rate and regular rhythm. Heart sounds: No murmur heard. No gallop. Pulmonary: Effort: No respiratory distress. Abdominal: General: There is no distension. Tenderness: There is no abdominal tenderness. Musculoskeletal: General: Normal range of motion. Cervical back: Normal range of motion. Skin: General: Skin is warm and dry. Neurological: Mental Status: He is alert and oriented to person, place, and time. Laboratory Tests: Lab Results Component Value Date WBC 4.2 08/26/2024 HGB 12.9 (L) 08/26/2024 HCT 37.4 (L) 08/26/2024 MCV 90.8 08/26/2024 PLT 231 08/26/2024 Lab Results Component Value Date GLUCOSE 98 08/26/2024 CALCIUM 9.4 08/26/2024 NA 135 08/26/2024 K 4.8 08/26/2024 CO2 28 08/26/2024 CL 99 08/26/2024 BUN 17 08/26/2024 CREATININE 1.38 (H) 08/26/2024 @LASTCMP@ Lab Results Component Value Date CHOL 191 12/18/2023 CHOL 217 (A) 03/18/2022 CHOL 197 09/16/2021 Lab Results Component Value Date TRIG 93 12/18/2023 TRIG 93 03/18/2022 TRIG 88 09/16/2021 Lab Results Component Value Date HDL 52 12/18/2023 HDL 55 03/18/2022 HDL 50 09/16/2021 Lab Results Component Value Date LDLCALC 120 (H) 12/18/2023 No results found for: BNP Cardiac Tests: Echo: 10/19/21: SUMMARY: 1. Left ventricle: Systolic function is normal. The estimated ejection fraction is 65%. 2. Right ventricle: The cavity size is mildly dilated. Systolic function is normal. 3. Left atrium: The atrium is mildly dilated. 4. Right atrium: The atrium is mildly dilated. 5. Aortic valve: There is mild, 1+ regurgitation. 6. Aorta: The aorta is mildly dilated. Last Echo 02/11/23: Left Ventricle: Left ventricle size is normal. Moderately increased wall thickness. Mass index 2D is 130.1 g/m2. Findings consistent with moderate concentric hypertrophy. Low normal left ventricular systolic function. EF 3D is 52%. Global longitudinal strain is normal. Normal wall motion. Right Ventricle: Right ventricle is mildly dilated. Prominent moderator band noted. Moderately reduced systolic function. Tricuspid Valve: Normal RVSP. RVSP is 31 mmHg. Left Atrium: Left atrium is mildly dilated. LA Vol Index A/L is 35 mL/m2. Aorta: Normal sized sinuses of Valsalva. Mildly dilated annulus. Dilated ascending aorta. Ao ascending diameter is 4.0 cm. No significant valvular abnormalities.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 12/26/23 Office Visit Shawanda Costa MD [facility] 08/29/23 Office Visit Shawanda Costa MD [facility] 07/07/23 Office Visit Shawanda Costa MD [facility] Showing recent visits within past 365 days and meeting all other requirements Future Appointments No visits were found meeting these conditions. Showing future appointments within next 90 days and meeting all other requirements Requested Prescriptions Pending Prescriptions Disp Refills loratadine (Claritin) 10 MG tablet [Pharmacy Med Name: LORATADINE 10 MG TABLET] 90 tablet 1 Sig: take 1 tablet by mouth once daily Provider: Shawanda Costa MD Overdue for visit: No If yes - patient scheduled? N/A Most recent labs completed in chart? No Verified pharmacy: yes Verified day(s) supplied: yes Verified refill(s) needed (previous prescription showing no refills in chart): Yes Have you received any controlled medications from any other provider? N/A [facility] 05-15-2024 Miscellaneous Notes Recent Visits Date Type Provider Dept 04/30/24 Office Visit Shawanda Costa MD [facility] 12/26/23 Office Visit Shawanda Costa MD [facility] 08/29/23 Office Visit Shawanda Costa MD [facility] 07/07/23 Office Visit Shawanda Costa MD [facility] Showing recent visits within past 365 days and meeting all other requirements Future Appointments No visits were found meeting these conditions. Showing future appointments within next 90 days and meeting all other requirements Requested Prescriptions Pending Prescriptions Disp Refills loratadine (Claritin) 10 MG tablet [Pharmacy Med Name: LORATADINE 10 MG TABLET] 90 tablet 1 Sig: take 1 tablet by mouth once daily Provider: Shawanda Costa MD Overdue for visit: No If yes - patient scheduled? N/A Most recent labs completed in chart? No Verified pharmacy: yes Verified day(s) supplied: yes Verified refill(s) needed (previous prescription showing no refills in chart): Yes Have you received any controlled medications from any other provider? N/A documented in this encounter [facility] 05-10-2024 History of Present illness Narrative Images from the original note were not included. [facility] [address] [place] [address] [facility] [address] Dept: [phone] Dept Loc: [phone] Visit type: Established Patient Reason for Visit: Follow-up and Other (Parkinson's disease without dyskinesia or fluctuating manifestations) Assessment and Plan 1. REM behavioral disorder - gabapentin (Neurontin) 400 MG capsule; Take 3 capsules (1,200 mg) by mouth Nightly. Do not start before May 15, 2024., Starting Mon05/15/2024, Until Mon08/13/2024, Normal 2. Parkinson's disease without dyskinesia or fluctuating manifestations (HCC) 3. Essential tremor Subjective HPI: He reports that he had to have his kidney removed. He had cancer. He continued to take the Sinemet but he felt that the rasagiline. Sinemet is lasing through to the next dose. He reports that he has been taking gabapentin for acting out dreams and for being restless during the night. He reports that he was put on gabapentin and that worked. He reports that he has had recurrence of the sleep behaviors. REVIEW OF SYSTEMS: Review of Systems Constitutional: Negative for appetite change, chills, diaphoresis, fatigue, fever and unexpected weight change. HENT: Negative for dental problem and mouth sores. Eyes: Negative for discharge and itching. Respiratory: Negative for chest tightness and shortness of breath. Cardiovascular: Negative for chest pain, palpitations and leg swelling. Gastrointestinal: Negative for abdominal pain, nausea, rectal pain and vomiting. Endocrine: Negative for polydipsia, polyphagia and polyuria. Genitourinary: Negative for decreased urine volume, flank pain and genital sores. Musculoskeletal: Positive for back pain. Negative for arthralgias and neck pain. Skin: Negative for color change. Allergic/Immunologic: Negative for food allergies and immunocompromised state. Neurological: Positive for tremors. Negative for dizziness, syncope, weakness, light-headedness and headaches. Hematological: Negative for adenopathy. Does not bruise/bleed easily. Psychiatric/Behavioral: Negative for agitation, behavioral problems, confusion, decreased concentration, sleep disturbance and suicidal ideas. Allergies Allergen Reactions Pollen Extract Seasonal allergies. Ropinirole Constipation and sleepiness Current Outpatient Medications: carbidopa-levodopa (Sinemet) 25-100 MG tablet, Take 1 tablet by mouth 3 times daily., Disp: 270 tablet, Rfl: 1 [START ON 06/20/2024] clonazePAM (KlonoPIN) 0.5 MG tablet, Take 0.5 tablets (0.25 mg) by mouth Daily as needed for anxiety for up to 24 doses. Do not start before June 20, 2024., Disp: 8 tablet, Rfl: 0 loratadine (Claritin) 10 MG tablet, Take 1 tablet (10 mg) by mouth daily., Disp: 90 tablet, Rfl: 1 PARoxetine (Paxil) 10 MG tablet, Take 1 tablet (10 mg) by mouth every morning., Disp: 90 tablet, Rfl: 1 propranolol (Inderal) 20 MG tablet, Take 1 tablet (20 mg) by mouth 2 times daily., Disp: 180 tablet, Rfl: 1 tamsulosin (Flomax) 0.4 MG 24 hr capsule, Take 1 capsule (0.4 mg) by mouth daily., Disp: 90 capsule, Rfl: 1 telmisartan (MIcarDIS) 20 MG tablet, Take 1 tablet (20 mg) by mouth daily., Disp: 90 tablet, Rfl: 1 cyclobenzaprine (Flexeril) 10 MG tablet, Take 1 tablet (10 mg) by mouth Nightly as needed for muscle spasms. (Patient not taking: Reported on 04/08/2024), Disp: 30 tablet, Rfl: 1 [START ON 05/15/2024] gabapentin (Neurontin) 400 MG capsule, Take 3 capsules (1,200 mg) by mouth Nightly. Do not start before May 15, 2024., Disp: 270 capsule, Rfl: 3 meloxicam (Mobic) 15 MG tablet, Take by mouth Daily as needed., Disp: , Rfl: Past Medical History: Diagnosis Date 2019 novel coronavirus disease (COVID-19) 02/18/2023 Abnormal EKG Allergic 01/15/1992 Anxiety Arthritis 02/13/2023 Benign prostatic hyperplasia Not sure Emphysema lung (HCC) Enlarged prostate Erectile dysfunction 12 yea Hyperlipidemia Hypertension Kidney stone 02/13/2023 Parkinson's disease (HCC) REM sleep behavior disorder Sepsis (HCC) Tremor Urinary incontinence Controlled by medication Social History Tobacco Use Smoking status: Former Current packs/day: 0.00 Average packs/day: 1 pack/day for 25.0 years (25.0 ttl pk-yrs) Types: Cigarettes Start date: 11/26/1984 Quit date: 11/28/2008 Years since quittin.4 Smokeless tobacco: Never Tobacco comments: Current, daily use of nicotene pouches Substance Use Topics Alcohol use: Not Currently Past Surgical History: Procedure Laterality Date CYST REMOVAL 1970 Tailbone cyst CYSTOSCOPY 02/12/2023 C&P with stent KIDNEY STONE SURGERY 03/2023 KIDNEY SURGERY 02/15/2023 NEPHRECTOMY Right 04/08/2024 ROBOTIC RIGHT RADICAL NEPHRECTOMY - Right Family History Problem Relation Name Age of Onset Parkinsonism Mother Juhi Rodriguez High Blood Pressure Mother Juhi Rodriguez Depression Mother Juhi Rodriguez Hearing loss Mother Juhi Rodriguez Fainting Mother Juhi Rodriguez Hypertension Mother Juhi Rodriguez Mental illness Mother Juhi Rodriguez Heart disease Father Nery Rodriguez Sr. Bipolar disorder Sister Bailey Rodriguez Mental illness Sister Bailey Rodriguez Objective Vitals: BP 116/72 (BP Location: Right arm, Patient Position: Sitting, BP Cuff Size: Adult) Pulse 65 Ht 6' 1 (1.854 m) Wt 226 lb (103 kg) BMI 29.82 kg/m General Appearance: Patient is in no apparent distress. Head is normocephalic, atraumatic Cardiovascular: Regular rate and rhythm. No heart murmurs. No carotid bruit Neurologic: Mentation: Alert and oriented x 3 to [address], [address] and time. Speech and Language: Speech and language normal Concentration and Attention: Concentration normal Memory: Memory normal Fund of Knowledge: Fund of knowledge normal Cranial Nerves: II, III, IV, V, , VII, VIII, IX, X, XI, XII examined and were intact. No masked facies unlike prior exams. Head titubation noticed occl. Motor: Strength: Strength 5 out of 5 with normal tone Alternating Movements: Normal Cogwheel Rigidity: None Tone: Tone is normal Tremor / Involuntary Movements: Left>right. Today it is more vertical than torsional like it has been before. Deep Tendon Reflexes: 1 out of 4 symmetrical in all four limbs. Coordination: Normal coordination upper and lower extremities Gait and Station: Station is normal. Gait is pretty much normal just less swing on the left Data Reviewed and Summarized DIAGNOSTIC TESTING CBC: Lab Results Component Value Date WBC 6.7 04/19/2024 RBC 3.35 (L) 04/19/2024 HGB 10.8 (L) 04/19/2024 HCT 31.8 (L) 04/19/2024 MCV 94.9 04/19/2024 MCH 32.2 04/19/2024 MCHC 34.0 04/19/2024 RDW 12.6 04/19/2024 PLT 253 04/19/2024 MPV 8.3 (L) 04/19/2024 CMP: Lab Results Component Value Date NA 135 04/19/2024 K 3.8 04/19/2024 CL 101 04/19/2024 CO2 29 04/19/2024 BUN 17 04/19/2024 CREATININE 1.50 (H) 04/19/2024 CREATININE 0.89 03/18/2022 GLUCOSE 128 (H) 04/19/2024 PROT 7.1 12/28/2023 CALCIUM 9.4 04/19/2024 BILITOT 0.8 12/28/2023 ALKPHOS 82 12/28/2023 AST 32 12/28/2023 ALT 6 12/28/2023 BMP: Lab Results Component Value Date NA 135 04/19/2024 K 3.8 04/19/2024 CL 101 04/19/2024 CO2 29 04/19/2024 BUN 17 04/19/2024 CREATININE 1.50 (H) 04/19/2024 CREATININE 0.89 03/18/2022 CALCIUM 9.4 04/19/2024 GLUCOSE 128 (H) 04/19/2024 PT/INR: Lab Results Component Value Date PROTIME 10.8 08/25/2020 INR 1.0 08/25/2020 PTT: No results found for: APTT, PTT[APTT} FLP: Lab Results Component Value Date TRIG 93 12/18/2023 HDL 52 12/18/2023 LDLCALC 120 (H) 12/18/2023 TSH: Lab Results Component Value Date TSH 1.092 12/29/2022 VITAMIN B12: VITAMIN B12 Date Value Ref Range Status 12/18/2023 933 (H) 239 - 931 pg/mL Final No results found for: PHENYTOIN, PHENOBARB, VALPROATE, CBMZ No components found for: TOPIRA @RESULTINGLABINFO@ FERRITIN Date Value Ref Range Status 08/25/2020 96 18 - 464 ng/mL Final No results found for: KELLIE, IMMUNOGLOBUL, OLIGOBANDS [facility] HEPATIT[facility] C ANTIBODY Date Value Ref Range Status 08/25/2020 NOT DETECTED Not-Detected NA Final Comment: Patients with DETECTED Hepatitis C Ab results should have a new specimen submitted for supplemental testing with a Hepatitis C Quantitative RNA assay (viral load), if clinically indicated. JOSE Titer Date Value Ref Range Status 12/28/2023 <1:80 <1:80 titer Final FERRITIN: Lab Results Component Value Date FERRITIN 96 08/25/2020 ---- IMPRESSION and PLAN: Diagnosis Plan 1. REM behavioral disorder gabapentin (Neurontin) 400 MG capsule 2. Parkinson's disease without dyskinesia or fluctuating manifestations (HCC) 3. Essential tremor Continue the gabapentin 1200 mg nightly. He looks really good with the 25/100 tid. We talked about raising the propranolol as this is the only tremor he has today, but decided it was not worth the risk of bradycardia. Breanna Tolliver MD I spent 30 minutes caring for this patient today, reviewing labs, records, seeing the patient, documenting in the record and arranging for studies. documented in this encounter [facility] 04-30-2024 Telephone encounter Note LM - called to relay this message: 1. Please let patient know that I reviewed his chart and wanted to confirm whether or not he was taking the meloxicam. If he is still taking meloxicam I recommend stop as this can affect his kidney function [facility] 04-30-2024 Miscellaneous Notes LM - called to relay this message: 1. Please let patient know that I reviewed his chart and wanted to confirm whether or not he was taking the meloxicam. If he is still taking meloxicam I recommend stop as this can affect his kidney function I called [facility], they have Negative results from 2021, they will fax us the results. 1. Please let patient know that I reviewed his chart and wanted to confirm whether or not he was taking the meloxicam. If he is still taking meloxicam I recommend stop as this can affect his kidney function #2 discussed with if possible get a copy of patient's last [facility] as I do not see the test results in the chart documented in this encounter [facility] 04-30-2024 Telephone encounter Note I called [facility], they have Negative results from 2021, they will fax us the results. [facility] 04-30-2024 Telephone encounter Note 1. Please let patient know that I reviewed his chart and wanted to confirm whether or not he was taking the meloxicam. If he is still taking meloxicam I recommend stop as this can affect his kidney function #2 discussed with if possible get a copy of patient's last [facility] as I do not see the test results in the chart [facility] 04-30-2024 History of Present illness Narrative Images from the original note were not included. [facility] [address] [facility] [address] [facility] [address] Dept: [phone] Dept Loc: [phone] Reason for Visit: Follow-up (Discuss recent surgery ) Assessment and Plan 1. Chronic anemia currently patient has had surgery most likely anemia caused by surgery will repeat a CBC and iron and B12. Also of note patient states he had a Colog[facility]ard done approximately a year ago we will try to obtain records of this. - CBC auto differential - Comprehensive metabolic panel - Iron level - Vitamin B12 2. Renal cancer, right (HCC) urology is following patient has a repeat CAT scan in 3 months. Patient to follow-up with Dr. Quintero regarding this I also recommend stopping: Meloxicam. Chronic stable we will continue 3. 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 4. Essential hypertension chronic stable continue propranolol telmisartan continue to monitor blood pressure current treatment plan is effective, no change in therapy, orders and follow up as documented in EMR, lab results reviewed with patient, repeat labs ordered prior to next appointment, reviewed compliance with lifestyle measures, reviewed diet, exercise and weight control, reviewed medications and side effects in detail Return visit in 3 months. Subjective HPI a 73-year-old male patient that has multiple medical problems. 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 He is denying any chest pain or shortness of breath. A while back he was diagnosed with a REM sleep behavioral disorder and has been on gabapentin ever since he feels the gabapentin were significantly for him. However he is currently seeing a neurologist as well. We did need to decrease his gabapentin due to his history of renal cancer and he had a right-sided nephrectomy so the gabapentin was decreased I did instruct patient that I would like him to follow-up with his neurologist regarding his REM sleep behavioral disorder and other alternatives for medications in addition to that patient also Review of Systems Constitutional: Negative. Negative for activity change, appetite change and fever. HENT: Negative. Negative for congestion. Eyes: Negative. Negative for discharge. Respiratory: Negative. Negative for chest tightness. Cardiovascular: Negative. Gastrointestinal: Negative. Endocrine: Negative. Negative for cold intolerance. Genitourinary: Negative for difficulty urinating. Musculoskeletal: Negative. Neurological: Negative. Negative for dizziness, facial asymmetry and headaches. Hematological: Negative. Allergies Allergen Reactions Pollen Extract Seasonal allergies. Ropinirole Constipation and sleepiness Outpatient Medications Prior to Visit Medication Sig Dispense Refill [START ON 06/20/2024] clonazePAM (KlonoPIN) 0.5 MG tablet Take 0.5 tablets (0.25 mg) by mouth Daily as needed for anxiety for up to 24 doses. Do not start before June 20, 2024. 8 tablet 0 gabapentin (Neurontin) 400 MG capsule Take 1 capsule (400 mg) by mouth 3 times daily. 90 capsule 1 loratadine (Claritin) 10 MG tablet Take 1 tablet (10 mg) by mouth daily. 90 tablet 1 meloxicam (Mobic) 15 MG tablet Take by mouth Daily as needed. PARoxetine (Paxil) 10 MG tablet Take 1 tablet (10 mg) by mouth every morning. 90 tablet 1 propranolol (Inderal) 20 MG tablet Take 1 tablet (20 mg) by mouth 2 times daily. 180 tablet 1 tamsulosin (Flomax) 0.4 MG 24 hr capsule Take 1 capsule (0.4 mg) by mouth daily. 90 capsule 1 telmisartan (MIcarDIS) 20 MG tablet Take 1 tablet (20 mg) by mouth daily. 90 tablet 1 carbidopa-levodopa (Sinemet) 25-100 MG tablet Take 1 tablet by mouth 3 times daily. 270 tablet 1 cyclobenzaprine (Flexeril) 10 MG tablet Take 1 tablet (10 mg) by mouth Nightly as needed for muscle spasms. (Patient not taking: Reported on 04/08/2024) 30 tablet 1 rasagiline (Azilect) 0.5 MG tablet Take 1 tablet (0.5 mg) by mouth daily. (Patient not taking: Reported on 01/24/2024) 90 tablet 1 No facility-administered medications prior to visit. 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 Orthostatic hypotension MDD (major depressive disorder) Dyslipidemia Ascending aortic aneurysm (HCC) Renal cyst, right Essential hypertension Gram-negative sepsis, unspecified (HCC) Lightheadedness Acute cystitis without hematuria Elevated troponin Hyponatremia Pulmonary emphysema, unspecified emphysema type (HCC) Renal cancer, right (HCC) Past Medical History: Diagnosis Date 2019 novel coronavirus disease (COVID-19) 02/18/2023 Abnormal EKG Allergic 01/15/1992 Anxiety Arthritis 02/13/2023 Benign prostatic hyperplasia Not sure Emphysema lung (HCC) Enlarged prostate Erectile dysfunction 12 yea Hyperlipidemia Hypertension Kidney stone 02/13/2023 REM sleep behavior disorder Sepsis (HCC) Urinary incontinence Controlled by medication Social History Tobacco Use Smoking status: Former Current packs/day: 0.00 Average packs/day: 1 pack/day for 25.0 years (25.0 ttl pk-yrs) Types: Cigarettes Start date: 11/26/1984 Quit date: 11/28/2008 Years since quittin.4 Smokeless tobacco: Current Tobacco comments: Current, daily use of nicotene pouches Substance Use Topics Alcohol use: Not Currently Past Surgical History: Procedure Laterality Date CYST REMOVAL 1970 Tailbone cyst CYSTOSCOPY 02/12/2023 C&P with stent KIDNEY STONE SURGERY 03/2023 KIDNEY SURGERY 02/15/2023 NEPHRECTOMY Right 04/08/2024 ROBOTIC RIGHT RADICAL NEPHRECTOMY - Right Family History Problem Relation Name Age of Onset Parkinsonism Mother Mother High Blood Pressure Mother Mother Depression Mother Mother Hearing loss Mother Mother Fainting Mother Mother Hypertension Mother Mother Mental illness Mother Mother Heart disease Father Nery Rodriguez Sr. Bipolar disorder Sister Bailey Rodriguez Mental illness Sister Bailey Rodriguez Health Maintenance Topic Date Due Diabetes Screening Never done IPV Vaccines (2 of 3 - Adult catch-up series) 09/13/1973 Hepatitis A Vaccines (2 of 2 - Risk 2-dose series) 01/16/1997 RSV Immunization aged 60 or older (1 - 1-dose 60+ series) Never done Hepatitis B Vaccines (1 of 3 - Risk 3-dose series) Never done Zoster Vaccines (2 of 3) 12/24/2012 Colorectal Cancer Screening 08/28/2021 COVID-19 Vaccine ( season) 2023 Depression Monitoring 02/27/2024 Influenza Vaccine (1) 06/16/2024 Medicare Annual Wellness (AWV) 09/28/2024 Lipid Panel 12/17/2028 DTaP/Tdap/Td Vaccines (3 - Td or Tdap) 01/20/2030 Pneumococcal Vaccine: 65+ Years Completed Hepatitis C Screening Completed RSV Immunization under 20 Months Aged Out HIB Vaccines Aged Out Meningococcal Vaccine Aged Out Rotavirus Vaccines Aged Out HPV Vaccines Aged Out Lung Cancer Screening Discontinued Objective BP 110/58 Pulse 89 Temp 36.2 C (97.2 F) Ht 6' 1 (1.854 m) Wt 224 lb (102 kg) SpO2 97% BMI 29.55 kg/m Physical Exam Vitals and nursing note reviewed. Constitutional: Appearance: Normal appearance. HENT: Head: Normocephalic and atraumatic. Nose: No congestion or rhinorrhea. Mouth/Throat: Mouth: Mucous membranes are moist. Pharynx: Oropharynx is clear. No posterior oropharyngeal erythema. Eyes: Extraocular Movements: Extraocular movements intact. Conjunctiva/sclera: Conjunctivae normal. Pupils: Pupils are equal, round, and reactive to light. Cardiovascular: Pulses: Normal pulses. Heart sounds: Normal heart sounds. No murmur heard. Pulmonary: Effort: Pulmonary effort is normal. No respiratory distress. Breath sounds: Normal breath sounds. No wheezing. Abdominal: General: Abdomen is flat. Bowel sounds are normal. Palpations: Abdomen is soft. Tenderness: There is no abdominal tenderness. Musculoskeletal: General: No swelling. Cervical back: Normal range of motion. Skin: General: Skin is warm and dry. Neurological: General: No focal deficit present. Mental Status: He is alert and oriented to person, place, and time. Mental status is at baseline. Psychiatric: Mood and Affect: Mood normal. Data Reviewed and Summarized Labs: Lab Results Component Value Date WBC 6.7 04/19/2024 HGB 10.8 (L) 04/19/2024 HCT 31.8 (L) 04/19/2024 PLT 253 04/19/2024 TSH 1.092 12/29/2022 PSA 3.958 09/16/2021 INR 1.0 08/25/2020 Lab Results Component Value Date NA 135 04/19/2024 K 3.8 04/19/2024 CL 101 04/19/2024 CO2 29 04/19/2024 BUN 17 04/19/2024 CREATININE 1.50 (H) 04/19/2024 GLUCOSE 128 (H) 04/19/2024 CALCIUM 9.4 04/19/2024 PROT 7.1 12/28/2023 BILITOT 0.8 12/28/2023 ALKPHOS 82 12/28/2023 AST 32 12/28/2023 ALT 6 12/28/2023 @GLUCOSELAB@ Lab Results Component Value Date CHOL 191 12/18/2023 CHOL 217 (A) 03/18/2022 CHOL 197 09/16/2021 Lab Results Component Value Date TRIG 93 12/18/2023 TRIG 93 03/18/2022 TRIG 88 09/16/2021 Lab Results Component Value Date HDL 52 12/18/2023 HDL 55 03/18/2022 HDL 50 09/16/2021 Lab Results Component Value Date LDLCALC 120 (H) 12/18/2023 No results found for: VLDL Lab Results Component Value Date CHOLHDLRATIO 4 12/18/2023 CHOLHDLRATIO 4 03/18/2022 CHOLHDLRATIO 4 09/16/2021 Imaging/Testing: CT abdomen pelvis w contrast Narrative: Patient Name: NERY RODRIGUEZ : 1950 Exam Date/Time: 04/19/2024 09:22 Procedure: CT ABDOMEN PELVIS W CONTRAST Ordering Provider: HOLCOMB SCOTT Reason For Exam: bleeding from midline incision- s/p nephrectomy. CT ABDOMEN AND PELVIS WITH CONTRAST EXAM DATE AND TIME: 04/19/2024 9:22 AM EDT INDICATION: 73 years with bleeding from midline COMPARISON: 02/11/2023, 07/21/2023 TECHNIQUE: Transaxial sequence through the abdomen and pelvis with 3 mm reconstruction with dynamic intravenous infusion of 75 mL of 370 mg% contrast media. Coronal and sagittal reconstructions included. Dose reduction was employed with automated exposure control. FINDINGS: Chest base: Normal. Liver: Normal size and contour. No suspicious lesion. Numerous cysts are present measuring up to 8.85 7.7 cm. Biliary tree: No extrahepatic biliary dilation. There is intrahepatic biliary dilation upstream from the largest hepatic cyst, new from the prior study. The gallbladder is nondistended. Spleen: Normal. Adrenals: Normal. Pancreas: Normal. Kidneys: Interval right nephrectomy. There is edema and fluid in the surgical bed but without evidence of a mass. No left renal lesion or hydronephrosis. Free fluid: None. Retroperitoneum and mesentery: No enlarged lymph nodes. Bowel: Normal caliber. The appendix is nondistended. Diverticuli are noted throughout the sigmoid colon. No stenotic lesion, mucosal thickening or adjacent fat stranding is noted to suggest diverticulitis. Vasculature: Atherosclerotic calcifications are seen in the aorta and its branches. The aorta is normal in caliber. Abdominal wall: Subcutaneous gas is present in the anterior abdominal wall were related to the patient's recent surgery. There is a lobulated hyperdense structure within the periumbilical/supraumbilical anterior abdominal wall measuring up to 4.3 x 3.9 x 8.2 cm. This abuts the cutaneous surface. Pelvic organs/viscera: No mass identified. The prostate is enlarged. Pelvic lymphadenopathy: None. Osseous structures: Mild degenerative change of the visualized spine is noted. Impression: 1. Postoperative changes of interval right nephrectomy. Fluid and edema in the surgical bed. 2. Postoperative soft tissue gas in the anterior abdominal wall. A lobulated hyperdense collection is present concerning for hematoma; superimposed infection cannot be excluded by imaging. 3. Multiple liver cysts. There is new intrahepatic biliary dilation upstream for the largest cyst. Consider ERCP for further evaluation. 4. Prostatomegaly. Report Dictated on Electronically Signed By: Daryl Monzon MD Electronically Signed Date/Time: 04/19/2024 9:39 AM EDT Shawanda Costa MD documented in this encounter [facility] 04-30-2024 History of Present illness Narrative Images from the original note were not included. [facility] [address] [place] [address] [address] [facility] [address] Dept: [phone] Dept Loc: [phone] Reason for Visit: Follow-up (Discuss recent surgery ) Assessment and Plan 1. Chronic anemia currently patient has had surgery most likely anemia caused by surgery will repeat a CBC and iron and B12. Also of note patient states he had a Cologuard done approximately a year ago we will try to obtain records of this. - CBC auto differential - Comprehensive metabolic panel - Iron level - Vitamin B12 2. Renal cancer, right (HCC) urology is following patient has a repeat CAT scan in 3 months. Patient to follow-up with Dr. Quintero regarding this I also recommend stopping: Meloxicam. Chronic stable we will continue 3. 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 4. Essential hypertension chronic stable continue propranolol telmisartan continue to monitor blood pressure current treatment plan is effective, no change in therapy, orders and follow up as documented in EMR, lab results reviewed with patient, repeat labs ordered prior to next appointment, reviewed compliance with lifestyle measures, reviewed diet, exercise and weight control, reviewed medications and side effects in detail Return visit in 3 months. Subjective HPI a 73-year-old male patient that has multiple medical problems. 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 He is denying any chest pain or shortness of breath. A while back he was diagnosed with a REM sleep behavioral disorder and has been on gabapentin ever since he feels the gabapentin were significantly for him. However he is currently seeing a neurologist as well. We did need to decrease his gabapentin due to his history of renal cancer and he had a right-sided nephrectomy so the gabapentin was decreased I did instruct patient that I would like him to follow-up with his neurologist regarding his REM sleep behavioral disorder and other alternatives for medications in addition to that patient also Review of Systems Constitutional: Negative. Negative for activity change, appetite change and fever. HENT: Negative. Negative for congestion. Eyes: Negative. Negative for discharge. Respiratory: Negative. Negative for chest tightness. Cardiovascular: Negative. Gastrointestinal: Negative. Endocrine: Negative. Negative for cold intolerance. Genitourinary: Negative for difficulty urinating. Musculoskeletal: Negative. Neurological: Negative. Negative for dizziness, facial asymmetry and headaches. Hematological: Negative. Allergies Allergen Reactions Pollen Extract Seasonal allergies. Ropinirole Constipation and sleepiness Outpatient Medications Prior to Visit Medication Sig Dispense Refill [START ON 06/20/2024] clonazePAM (KlonoPIN) 0.5 MG tablet Take 0.5 tablets (0.25 mg) by mouth Daily as needed for anxiety for up to 24 doses. Do not start before June 20, 2024. 8 tablet 0 gabapentin (Neurontin) 400 MG capsule Take 1 capsule (400 mg) by mouth 3 times daily. 90 capsule 1 loratadine (Claritin) 10 MG tablet Take 1 tablet (10 mg) by mouth daily. 90 tablet 1 meloxicam (Mobic) 15 MG tablet Take by mouth Daily as needed. PARoxetine (Paxil) 10 MG tablet Take 1 tablet (10 mg) by mouth every morning. 90 tablet 1 propranolol (Inderal) 20 MG tablet Take 1 tablet (20 mg) by mouth 2 times daily. 180 tablet 1 tamsulosin (Flomax) 0.4 MG 24 hr capsule Take 1 capsule (0.4 mg) by mouth daily. 90 capsule 1 telmisartan (MIcarDIS) 20 MG tablet Take 1 tablet (20 mg) by mouth daily. 90 tablet 1 carbidopa-levodopa (Sinemet) 25-100 MG tablet Take 1 tablet by mouth 3 times daily. 270 tablet 1 cyclobenzaprine (Flexeril) 10 MG tablet Take 1 tablet (10 mg) by mouth Nightly as needed for muscle spasms. (Patient not taking: Reported on 04/08/2024) 30 tablet 1 rasagiline (Azilect) 0.5 MG tablet Take 1 tablet (0.5 mg) by mouth daily. (Patient not taking: Reported on 01/24/2024) 90 tablet 1 No facility-administered medications prior to visit. 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 Orthostatic hypotension MDD (major depressive disorder) Dyslipidemia Ascending aortic aneurysm (HCC) Renal cyst, right Essential hypertension Gram-negative sepsis, unspecified (HCC) Lightheadedness Acute cystitis without hematuria Elevated troponin Hyponatremia Pulmonary emphysema, unspecified emphysema type (HCC) Renal cancer, right (HCC) Past Medical History: Diagnosis Date 2019 novel coronavirus disease (COVID-19) 02/18/2023 Abnormal EKG Allergic 01/15/1992 Anxiety Arthritis 02/13/2023 Benign prostatic hyperplasia Not sure Emphysema lung (HCC) Enlarged prostate Erectile dysfunction 12 yea Hyperlipidemia Hypertension Kidney stone 02/13/2023 REM sleep behavior disorder Sepsis (HCC) Urinary incontinence Controlled by medication Social History Tobacco Use Smoking status: Former Current packs/day: 0.00 Average packs/day: 1 pack/day for 25.0 years (25.0 ttl pk-yrs) Types: Cigarettes Start date: 11/26/1984 Quit date: 11/28/2008 Years since quittin.4 Smokeless tobacco: Current Tobacco comments: Current, daily use of nicotene pouches Substance Use Topics Alcohol use: Not Currently Past Surgical History: Procedure Laterality Date CYST REMOVAL 1970 Tailbone cyst CYSTOSCOPY 02/12/2023 C&P with stent KIDNEY STONE SURGERY 03/2023 KIDNEY SURGERY 02/15/2023 NEPHRECTOMY Right 04/08/2024 ROBOTIC RIGHT RADICAL NEPHRECTOMY - Right Family History Problem Relation Name Age of Onset Parkinsonism Mother Mother High Blood Pressure Mother Mother Depression Mother Mother Hearing loss Mother Mother Fainting Mother Mother Hypertension Mother Mother Mental illness Mother Mother Heart disease Father Nery Rodriguez Sr. Bipolar disorder Sister Bailey Rodriguez Mental illness Sister Bailey Rodriguez Health Maintenance Topic Date Due Diabetes Screening Never done IPV Vaccines (2 of 3 - Adult catch-up series) 09/13/1973 Hepatitis A Vaccines (2 of 2 - Risk 2-dose series) 01/16/1997 RSV Immunization aged 60 or older (1 - 1-dose 60+ series) Never done Hepatitis B Vaccines (1 of 3 - Risk 3-dose series) Never done Zoster Vaccines (2 of 3) 12/24/2012 Colorectal Cancer Screening 08/28/2021 COVID-19 Vaccine ( season) 2023 Depression Monitoring 02/27/2024 Influenza Vaccine (1) 06/16/2024 Medicare Annual Wellness (AWV) 09/28/2024 Lipid Panel 12/17/2028 DTaP/Tdap/Td Vaccines (3 - Td or Tdap) 01/20/2030 Pneumococcal Vaccine: 65+ Years Completed Hepatitis C Screening Completed RSV Immunization under 20 Months Aged Out HIB Vaccines Aged Out Meningococcal Vaccine Aged Out Rotavirus Vaccines Aged Out HPV Vaccines Aged Out Lung Cancer Screening Discontinued Objective BP 110/58 Pulse 89 Temp 36.2 C (97.2 F) Ht 6' 1 (1.854 m) Wt 224 lb (102 kg) SpO2 97% BMI 29.55 kg/m Physical Exam Vitals and nursing note reviewed. Constitutional: Appearance: Normal appearance. HENT: Head: Normocephalic and atraumatic. Nose: No congestion or rhinorrhea. Mouth/Throat: Mouth: Mucous membranes are moist. Pharynx: Oropharynx is clear. No posterior oropharyngeal erythema. Eyes: Extraocular Movements: Extraocular movements intact. Conjunctiva/sclera: Conjunctivae normal. Pupils: Pupils are equal, round, and reactive to light. Cardiovascular: Pulses: Normal pulses. Heart sounds: Normal heart sounds. No murmur heard. Pulmonary: Effort: Pulmonary effort is normal. No respiratory distress. Breath sounds: Normal breath sounds. No wheezing. Abdominal: General: Abdomen is flat. Bowel sounds are normal. Palpations: Abdomen is soft. Tenderness: There is no abdominal tenderness. Musculoskeletal: General: No swelling. Cervical back: Normal range of motion. Skin: General: Skin is warm and dry. Neurological: General: No focal deficit present. Mental Status: He is alert and oriented to person, place, and time. Mental status is at baseline. Psychiatric: Mood and Affect: Mood normal. Data Reviewed and Summarized Labs: Lab Results Component Value Date WBC 6.7 04/19/2024 HGB 10.8 (L) 04/19/2024 HCT 31.8 (L) 04/19/2024 PLT 253 04/19/2024 TSH 1.092 12/29/2022 PSA 3.958 09/16/2021 INR 1.0 08/25/2020 Lab Results Component Value Date NA 135 04/19/2024 K 3.8 04/19/2024 CL 101 04/19/2024 CO2 29 04/19/2024 BUN 17 04/19/2024 CREATININE 1.50 (H) 04/19/2024 GLUCOSE 128 (H) 04/19/2024 CALCIUM 9.4 04/19/2024 PROT 7.1 12/28/2023 BILITOT 0.8 12/28/2023 ALKPHOS 82 12/28/2023 AST 32 12/28/2023 ALT 6 12/28/2023 @GLUCOSELAB@ Lab Results Component Value Date CHOL 191 12/18/2023 CHOL 217 (A) 03/18/2022 CHOL 197 09/16/2021 Lab Results Component Value Date TRIG 93 12/18/2023 TRIG 93 03/18/2022 TRIG 88 09/16/2021 Lab Results Component Value Date HDL 52 12/18/2023 HDL 55 03/18/2022 HDL 50 09/16/2021 Lab Results Component Value Date LDLCALC 120 (H) 12/18/2023 No results found for: VLDL Lab Results Component Value Date CHOLHDLRATIO 4 12/18/2023 CHOLHDLRATIO 4 03/18/2022 CHOLHDLRATIO 4 09/16/2021 Imaging/Testing: CT abdomen pelvis w contrast Narrative: Patient Name: NERY RODRIGUEZ : 1950 [id number] Exam Date/Time: 04/19/2024 09:22 Procedure: CT ABDOMEN PELVIS W CONTRAST Ordering Provider: HOLCOMB SCOTT Reason For Exam: bleeding from midline incision- s/p nephrectomy. CT ABDOMEN AND PELVIS WITH CONTRAST EXAM DATE AND TIME: 04/19/2024 9:22 AM EDT INDICATION: 73 years with bleeding from midline COMPARISON: 02/11/2023, 07/21/2023 TECHNIQUE: Transaxial sequence through the abdomen and pelvis with 3 mm reconstruction with dynamic intravenous infusion of 75 mL of 370 mg% contrast media. Coronal and sagittal reconstructions included. Dose reduction was employed with automated exposure control. FINDINGS: Chest base: Normal. Liver: Normal size and contour. No suspicious lesion. Numerous cysts are present measuring up to 8.85 7.7 cm. Biliary tree: No extrahepatic biliary dilation. There is intrahepatic biliary dilation upstream from the largest hepatic cyst, new from the prior study. The gallbladder is nondistended. Spleen: Normal. Adrenals: Normal. Pancreas: Normal. Kidneys: Interval right nephrectomy. There is edema and fluid in the surgical bed but without evidence of a mass. No left renal lesion or hydronephrosis. Free fluid: None. Retroperitoneum and mesentery: No enlarged lymph nodes. Bowel: Normal caliber. The appendix is nondistended. Diverticuli are noted throughout the sigmoid colon. No stenotic lesion, mucosal thickening or adjacent fat stranding is noted to suggest diverticulitis. Vasculature: Atherosclerotic calcifications are seen in the aorta and its branches. The aorta is normal in caliber. Abdominal wall: Subcutaneous gas is present in the anterior abdominal wall were related to the patient's recent surgery. There is a lobulated hyperdense structure within the periumbilical/supraumbilical anterior abdominal wall measuring up to 4.3 x 3.9 x 8.2 cm. This abuts the cutaneous surface. Pelvic organs/viscera: No mass identified. The prostate is enlarged. Pelvic lymphadenopathy: None. Osseous structures: Mild degenerative change of the visualized spine is noted. Impression: 1. Postoperative changes of interval right nephrectomy. Fluid and edema in the surgical bed. 2. Postoperative soft tissue gas in the anterior abdominal wall. A lobulated hyperdense collection is present concerning for hematoma; superimposed infection cannot be excluded by imaging. 3. Multiple liver cysts. There is new intrahepatic biliary dilation upstream for the largest cyst. Consider ERCP for further evaluation. 4. Prostatomegaly. Report Dictated on Electronically Signed By: Daryl Monzon MD Electronically Signed Date/Time: 04/19/2024 9:39 AM EDT Shawanda Costa MD documented in this encounter [facility] 04-30-2024 Miscellaneous Notes Addended by: ENE LUGO on: 08/26/2024 08:55 AM Modules accepted: Orders documented in this encounter [facility] 04-30-2024 Note Addended by: ENE JIMENEZ on: 08/26/2024 08:55 AM Modules accepted: Orders [facility] 04-24-2024 History of Present illness Narrative Images from the original note were not included. Conner Quintero MD 04/24/2024 at 1:31 PM Office follow up PATIENT NAME: Nery Rodriguez DATE OF : 1950 TODAY'S DATE: 04/24/2024 CHIEF COMPLAINT: Chief Complaint Patient presents with Post-op Renal Mass Nephrectomy Subjective: Mr. Rodriguez is a 73 y.o. male who presents to the office for follow up of right radical nephrectomy Review of Systems Past Medical History: Past Medical History: Diagnosis Date 2019 novel coronavirus disease (COVID-19) 02/18/2023 Abnormal EKG Allergic 01/15/1992 Anxiety Arthritis 02/13/2023 Emphysema lung (HCC) Enlarged prostate Hyperlipidemia Hypertension REM sleep behavior disorder Sepsis (HCC) Past Surgical History: Past Surgical History: Procedure Laterality Date CYST REMOVAL 1970 Tailbone cyst CYSTOSCOPY 02/12/2023 C&P with stent KIDNEY SURGERY 02/15/2023 NEPHRECTOMY Right 04/08/2024 ROBOTIC RIGHT RADICAL NEPHRECTOMY - Right Allergies: Pollen extract and Ropinirole Social History: Social History Socioeconomic History Marital status: Spouse name: Not on file Number of children: Not on file Years of education: Not on file Highest education level: Not on file Occupational History Not on file Tobacco Use Smoking status: Former Current packs/day: 0.00 Average packs/day: 1 pack/day for 25.0 years (25.0 ttl pk-yrs) Types: Cigarettes Start date: 11/26/1984 Quit date: 11/28/2008 Years since quittin.4 Smokeless tobacco: Current Tobacco comments: Current, daily use of nicotene pouches Vaping Use Vaping status: Never Used Substance and Sexual Activity Alcohol use: Not Currently Drug use: Never Comment: Caffeine: 1 cup of coffee; occasionally in afternoon Sexual activity: Not Currently Partners: Female control/protection: None Other Topics Concern Not on file Social History Narrative Not on file Social Determinants of Health Financial Resource Strain: Low Risk (04/08/2024) Overall Financial Resource Strain (CARDIA) Difficulty of Paying Living Expenses: Not hard at all Food Insecurity: No Food Insecurity (04/08/2024) Hunger Vital Sign Worried About Running Out of Food in the Last Year: Never true Ran Out of Food in the Last Year: Never true Transportation Needs: No Transportation Needs (04/08/2024) PRAPARE - Transportation Lack of Transportation (Medical): No Lack of Transportation (Non-Medical): No Physical Activity: Sufficiently Active (04/08/2024) Exercise Vital Sign Days of Exercise per Week: 5 days Minutes of Exercise per Session: 30 min Stress: No Stress Concern Present (04/08/2024) [employer] - Occupational Stress Questionnaire Feeling of Stress : Only a little Social Connections: Socially Isolated (04/08/2024) Social Connection and Isolation Panel [NHANES] Frequency of Communication with Friends and Family: Never Frequency of Social Gatherings with Friends and Family: Twice a week Attends Orthodoxy Services: Never Active Member of Clubs or Organizations: No Attends Club or Organization Meetings: Never Marital Status: Intimate Partner Violence: Not At Risk (02/11/2023) Humiliation, Afraid, Rape, and Kick questionnaire Fear of Current or Ex-Partner: No Emotionally Abused: No Physically Abused: No Sexually Abused: No Housing Stability: Low Risk (04/08/2024) Housing Stability Vital Sign Unable to Pay for Housing in the Last Year: No Number of Times Moved in the Last Year: 0 Homeless in the Last Year: No Family History: Medications Prior to Admission medications Medication Sig Start Date End Date Taking? Authorizing Provider carbidopa-levodopa (Sinemet) 25-100 MG tablet Take 1 tablet by mouth 3 times daily. 12/25/23 04/24/24 Yes Breanna Tolliver MD clonazePAM (KlonoPIN) 0.5 MG tablet Take 0.5 tablets (0.25 mg) by mouth Daily as needed for anxiety for up to 24 doses. Do not start before June 20, 2024. 06/20/24 Yes Dany Healy DO docusate sodium (Colace) 100 MG capsule Take 1 capsule (100 mg) by mouth 2 times daily for 10 days. 04/09/24 04/24/24 Yes Christiano Santiago MD gabapentin (Neurontin) 400 MG capsule Take 1 capsule (400 mg) by mouth 3 times daily. 04/10/24 04/10/25 Yes Shawanda Costa MD loratadine (Claritin) 10 MG tablet Take 1 tablet (10 mg) by mouth daily. 11/20/23 Yes Shawanda Costa MD PARoxetine (Paxil) 10 MG tablet Take 1 tablet (10 mg) by mouth every morning. 04/23/24 10/20/24 Yes Dany Healy DO propranolol (Inderal) 20 MG tablet Take 1 tablet (20 mg) by mouth 2 times daily. 02/20/24 08/18/24 Yes Shawanda Costa MD tamsulosin (Flomax) 0.4 MG 24 hr capsule Take 1 capsule (0.4 mg) by mouth daily. 11/13/23 Yes Shawanda Costa MD telmisartan (MIcarDIS) 20 MG tablet Take 1 tablet (20 mg) by mouth daily. 03/12/24 Yes Shawanda Costa MD cyclobenzaprine (Flexeril) 10 MG tablet Take 1 tablet (10 mg) by mouth Nightly as needed for muscle spasms. Patient not taking: Reported on 04/08/2024 01/02/23 04/01/24 Shawanda Costa MD meloxicam (Mobic) 15 MG tablet Take by mouth Daily as needed. 01/31/23 Historical Provider, rasagiline (Azilect) 0.5 MG tablet Take 1 tablet (0.5 mg) by mouth daily. Patient not taking: Reported on 01/24/2024 12/25/23 03/24/24 Breanna Tolliver MD clonazePAM (KlonoPIN) 0.5 MG tablet Take 0.5 tablets (0.25 mg) by mouth Daily as needed for anxiety for up to 24 doses. 03/19/24 04/23/24 Tanmay Elliott DO PARoxetine (Paxil) 10 MG tablet Take 1 tablet (10 mg) by mouth every morning. 03/19/24 04/23/24 Tanmay Elliott DO Vitals: There were no vitals taken for this visit. Physical Exam General: alert, appears stated age, and cooperative Abdomen: soft and nondistended Back: CVA tenderness absent : defer exam Labs: WBC Lab Results Component Value Date WBC 6.7 04/19/2024 BMP Lab Results Component Value Date NA 135 04/19/2024 K 3.8 04/19/2024 CL 101 04/19/2024 CO2 29 04/19/2024 BUN 17 04/19/2024 CREATININE 1.50 (H) 04/19/2024 CREATININE 0.89 03/18/2022 GLUCOSE 128 (H) 04/19/2024 CALCIUM 9.4 04/19/2024 PSA Lab Results Component Value Date PSA 3.958 09/16/2021 PSA 2.232 05/17/2021 PSA 1.723 02/20/2020 UA Lab Results Component Value Date COLORU Yellow 02/11/2023 GLUCOSEU Normal 02/11/2023 UROBILINOGEN Normal 02/11/2023 Review: CT ABDOMEN AND PELVIS WITH CONTRAST EXAM DATE AND TIME: 04/19/2024 9:22 AM EDT INDICATION: 73 years with bleeding from midline COMPARISON: 02/11/2023, 07/21/2023 TECHNIQUE: Transaxial sequence through the abdomen and pelvis with 3 mm reconstruction with dynamic intravenous infusion of 75 mL of 370 mg% contrast media. Coronal and sagittal reconstructions included. Dose reduction was employed with automated exposure control. FINDINGS: Chest base: Normal. Liver: Normal size and contour. No suspicious lesion. Numerous cysts are present measuring up to 8.85 7.7 cm. Biliary tree: No extrahepatic biliary dilation. There is intrahepatic biliary dilation upstream from the largest hepatic cyst, new from the prior study. The gallbladder is nondistended. Spleen: Normal. Adrenals: Normal. Pancreas: Normal. Kidneys: Interval right nephrectomy. There is edema and fluid in the surgical bed but without evidence of a mass. No left renal lesion or hydronephrosis. Free fluid: None. Retroperitoneum and mesentery: No enlarged lymph nodes. Bowel: Normal caliber. The appendix is nondistended. Diverticuli are noted throughout the sigmoid colon. No stenotic lesion, mucosal thickening or adjacent fat stranding is noted to suggest diverticulitis. Vasculature: Atherosclerotic calcifications are seen in the aorta and its branches. The aorta is normal in caliber. Abdominal wall: Subcutaneous gas is present in the anterior abdominal wall were related to the patient's recent surgery. There is a lobulated hyperdense structure within the periumbilical/supraumbilical anterior abdominal wall measuring up to 4.3 x 3.9 x 8.2 cm. This abuts the cutaneous surface. Pelvic organs/viscera: No mass identified. The prostate is enlarged. Pelvic lymphadenopathy: None. Osseous structures: Mild degenerative change of the visualized spine is noted. IMPRESSION: 1. Postoperative changes of interval right nephrectomy. Fluid and edema in the surgical bed. 2. Postoperative soft tissue gas in the anterior abdominal wall. A lobulated hyperdense collection is present concerning for hematoma; superimposed infection cannot be excluded by imaging. 3. Multiple liver cysts. There is new intrahepatic biliary dilation upstream for the largest cyst. Consider ERCP for further evaluation. 4. Prostatomegaly. Impression/Plan Diagnoses and all orders for this visit: Renal cancer, right (HCC) - CT abdomen pelvis wo IV contrast; Future Scrotal swelling Hematoma - CT abdomen pelvis wo IV contrast; Future Creatinine 1.5, has been stable since surgery Ct reviewed, small midline hematoma Repeat ct in 3 mo, then annually No follow-ups on file. Conner Quintero MD 04/24/24 1:31 PM documented in this encounter [facility] 04-19-2024 Emergency department Note Midline abdominal incision with small portion of lower segment partially opened. Edges well approximated with no redness or swelling. Small hematoma above incision with no pain on palpation. Ecchymosis noted to lower abdomen from surgical sites. Pt denies pain fever and any signs of infection. Lower abdomen incision sealed with new dressing. Opening partially sealed on its own. With no drainage at this time. MD at bedside for assessment and wound photo to upload to ED physician note. Ash Lombardo RN 04/19/24 0831 [facility] 04-19-2024 Emergency department Note Midline abdominal incision with small portion of lower segment partially opened. Edges well approximated with no redness or swelling. Small hematoma above incision with no pain on palpation. Ecchymosis noted to lower abdomen from surgical sites. Pt denies pain fever and any signs of infection. Lower abdomen incision sealed with new dressing. Opening partially sealed on its own. With no drainage at this time. MD at bedside for assessment and wound photo to upload to ED physician note. Ash Lombardo RN 04/19/24 0831 Images from the original note were not included. EMERGENCY DEPARTMENT ENCOUNTER Pt Name: Nery Rodriguez Birthdate 1950 Date of evaluation: 04/19/2024 ED Provider: Van Holcomb MD CHIEF COMPLAINT Chief Complaint Patient presents with Wound Check Midline incision to abdomen from recent surgery with drainage. HISTORY OF PRESENT ILLNESS (Location/Symptom, Timing/Onset, Context/Setting, Quality, Duration, Modifying Factors, Severity) Note limiting factors. I wore appropriate PPE for the entirety of this encounter. HPI Nery Rodriguez is a 73 y.o. who presents to the emergency department chief complaint of bleeding from his midline abdominal incision. Patient is a week and a half postop from laparoscopic right radical nephrectomy with robotic assistance by Dr. Quintero from Urology on April 08. Denies fevers or chills. Patient was evaluated in the emergency department 6 days ago he reportedly had a slight drop in his hemoglobin to 10.4 from 11.9. Plan for CT abdomen but patient reportedly was tired and left prior to treatment completion. Presented today for reevaluation. Denies any known bleeding disorder. Denies being on any anticoagulant or antiplatelet medications. Reports being able to urinate without difficulty. Nursing Notes were reviewed. Outside historians: Significant other REVIEW OF SYSTEMS Review of Systems Constitutional: Negative for fever. Respiratory: Negative for shortness of breath. Cardiovascular: Negative for chest pain. Gastrointestinal: Negative for abdominal pain and vomiting. Genitourinary: Negative for difficulty urinating, dysuria and frequency. Skin: Positive for wound. Neurological: Negative for light-headedness. Hematological: Does not bruise/bleed easily. Pertinent positives and negatives as per HPI PAST MEDICAL HISTORY Past Medical History: Diagnosis Date 2019 novel coronavirus disease (COVID-19) 02/18/2023 Abnormal EKG Allergic 01/15/1992 Anxiety Arthritis 02/13/2023 Emphysema lung (HCC) Enlarged prostate Hyperlipidemia Hypertension REM sleep behavior disorder Sepsis (HCC) SURGICAL HISTORY Past Surgical History: Procedure Laterality Date CYST REMOVAL 1970 Tailbone cyst CYSTOSCOPY 02/12/2023 C&P with stent KIDNEY SURGERY 02/15/2023 NEPHRECTOMY Right 04/08/2024 ROBOTIC RIGHT RADICAL NEPHRECTOMY - Right CURRENT MEDICATIONS Discharge Medication List as of 04/19/2024 9:56 AM CONTINUE these medications which have NOT CHANGED Details carbidopa-levodopa (Sinemet) 25-100 MG tablet Take 1 tablet by mouth 3 times daily., Starting Mon12/25/2023, Until Mon04/08/2024, Normal clonazePAM (KlonoPIN) 0.5 MG tablet Take 0.5 tablets (0.25 mg) by mouth Daily as needed for anxiety for up to 24 doses., Starting Mon03/19/2024, Normal cyclobenzaprine (Flexeril) 10 MG tablet Take 1 tablet (10 mg) by mouth Nightly as needed for muscle spasms., Starting Mon01/02/2023, Until Mon04/01/2024 at 2359, Normal docusate sodium (Colace) 100 MG capsule Take 1 capsule (100 mg) by mouth 2 times daily for 10 days., Starting Mon04/09/2024, Until Mon04/19/2024, Normal gabapentin (Neurontin) 400 MG capsule Take 1 capsule (400 mg) by mouth 3 times daily., Starting Mon04/10/2024, Until Katerin 04/10/2025, Normal loratadine (Claritin) 10 MG tablet Take 1 tablet (10 mg) by mouth daily., Starting 11/20/2023, Normal meloxicam (Mobic) 15 MG tablet Take by mouth Daily as needed., Starting Mon01/31/2023, Historical Med PARoxetine (Paxil) 10 MG tablet Take 1 tablet (10 mg) by mouth every morning., Starting Mon03/19/2024, Until 05/18/2024, Normal propranolol (Inderal) 20 MG tablet Take 1 tablet (20 mg) by mouth 2 times daily., Starting Mon02/20/2024, Until 08/18/2024, Normal rasagiline (Azilect) 0.5 MG tablet Take 1 tablet (0.5 mg) by mouth daily., Starting Mon12/25/2023, Until 03/24/2024, Normal tamsulosin (Flomax) 0.4 MG 24 hr capsule Take 1 capsule (0.4 mg) by mouth daily., Starting Mon11/13/2023, Normal telmisartan (MIcarDIS) 20 MG tablet Take 1 tablet (20 mg) by mouth daily., Starting Mon03/12/2024, Normal ALLERGIES Pollen extract and Ropinirole FAMILY HISTORY Family History Problem Relation Name Age of Onset Parkinsonism Mother Juhi Rodriguez High Blood Pressure Mother Juhi Rodriguez Depression Mother Juhi Rodriguez Hearing loss Mother Juhi Rodriguez Fainting Mother Jhui Rodriguez Hypertension Mother Juhi Rodriguez Mental illness Mother Juhi Rodriguez Heart disease Father Nery Rodriguez Sr. Bipolar disorder Sister Bailey Rodriguez Mental illness Sister Bailey Rodriguez SOCIAL HISTORY Social History Socioeconomic History Marital status: Tobacco Use Smoking status: Former Current packs/day: 0.00 Average packs/day: 1 pack/day for 25.0 years (25.0 ttl pk-yrs) Types: Cigarettes Start date: 11/26/1984 Quit date: 11/28/2008 Years since quittin.4 Smokeless tobacco: Current Tobacco comments: Current, daily use of nicotene pouches Vaping Use Vaping status: Never Used Substance and Sexual Activity Alcohol use: Not Currently Drug use: Never Comment: Caffeine: 1 cup of coffee; occasionally in afternoon Sexual activity: Not Currently Partners: Female control/protection: None Social Determinants of Health Financial Resource Strain: Low Risk (04/08/2024) Overall Financial Resource Strain (CARDIA) Difficulty of Paying Living Expenses: Not hard at all Food Insecurity: No Food Insecurity (04/08/2024) Hunger Vital Sign Worried About Running Out of Food in the Last Year: Never true Ran Out of Food in the Last Year: Never true Transportation Needs: No Transportation Needs (04/08/2024) PRAPARE - Transportation Lack of Transportation (Medical): No Lack of Transportation (Non-Medical): No Physical Activity: Sufficiently Active (04/08/2024) Exercise Vital Sign Days of Exercise per Week: 5 days Minutes of Exercise per Session: 30 min Stress: No Stress Concern Present (04/08/2024) [employer] - Occupational Stress Questionnaire Feeling of Stress : Only a little Social Connections: Socially Isolated (04/08/2024) Social Connection and Isolation Panel [NHANES] Frequency of Communication with Friends and Family: Never Frequency of Social Gatherings with Friends and Family: Twice a week Attends Orthodoxy Services: Never Active Member of Clubs or Organizations: No Attends Club or Organization Meetings: Never Marital Status: Intimate Partner Violence: Not At Risk (02/11/2023) Humiliation, Afraid, Rape, and Kick questionnaire Fear of Current or Ex-Partner: No Emotionally Abused: No Physically Abused: No Sexually Abused: No Housing Stability: Low Risk (04/08/2024) Housing Stability Vital Sign Unable to Pay for Housing in the Last Year: No Number of Times Moved in the Last Year: 0 Homeless in the Last Year: No PHYSICAL EXAM ED Triage Vitals Temp Pulse Resp BP -- -- -- -- SpO2 Temp src Heart Rate Source Patient Position -- -- -- -- BP Location FiO2 (%) -- -- Physical Exam Vitals and nursing note reviewed. Constitutional: General: He is not in acute distress. Comments: 73-year-old male HENT: Head: Normocephalic and atraumatic. Eyes: Extraocular Movements: Extraocular movements intact. Conjunctiva/sclera: Conjunctivae normal. Pupils: Pupils are equal, round, and reactive to light. Cardiovascular: Rate and Rhythm: Normal rate and regular rhythm. Pulmonary: Effort: Pulmonary effort is normal. Abdominal: Palpations: Abdomen is soft. Tenderness: There is no abdominal tenderness. There is no right CVA tenderness, left CVA tenderness or rebound. Comments: Small 2 mm area in the middle of midline abdominal incision with blood. No significant dehiscence. No erythema or warmth. Palpable area of firmness on the cranial portion of this incision. No palpable bruit. Associated yellowing with purple ecchymoses across lower abdomen. Otherwise well-appearing laparoscopic incisional sites. Musculoskeletal: Cervical back: Normal range of motion. Skin: General: Skin is warm and dry. Coloration: Skin is not pale. Neurological: Mental Status: He is alert. DIAGNOSTIC RESULTS RADIOLOGY (Per Emergency Physician): Interpretation per the Radiologist below, if available at the time of this note: CT abdomen pelvis w contrast Final Result 1. Postoperative changes of interval right nephrectomy. Fluid and edema in the surgical bed. 2. Postoperative soft tissue gas in the anterior abdominal wall. A lobulated hyperdense collection is present concerning for hematoma; superimposed infection cannot be excluded by imaging. 3. Multiple liver cysts. There is new intrahepatic biliary dilation upstream for the largest cyst. Consider ERCP for further evaluation. 4. Prostatomegaly. Report Dictated on Electronically Signed By: Daryl Monzon MD Electronically Signed Date/Time: 04/19/2024 9:39 AM EDT LABS: Labs Reviewed BASIC METABOLIC PANEL - Abnormal Result Value SODIUM 135 POTASSIUM 3.8 CHLORIDE 101 CARBON DIOXIDE 29 UREA NITROGEN 17 CREATININE 1.50 (*) GLUCOSE 128 (*) CALCIUM 9.4 ANION GAP 4 eGFR 49.2 (*) CBC WITH AUTO DIFFERENTIAL - Abnormal Auto WBC 6.7 RBC 3.35 (*) Hemoglobin 10.8 (*) Hematocrit 31.8 (*) MCV 94.9 MCH 32.2 MCHC 34.0 RDW 12.6 Platelets 253 MPV 8.3 (*) nRBC 0.0 Neutrophils Relative 69.6 Lymphocytes Relative 17.4 Monocytes Relative 7.1 Eosinophils Relative 3.7 Basophils Relative 0.4 Immature Grans % 1.8 Neutrophils Absolute 4.7 Lymphocytes Absolute 1.2 Monocytes Absolute 0.5 Eosinophils Absolute 0.3 Basophils Absolute 0.0 Immature Grans Absolute 0.1 (*) All other labs were within normal range or not returned as of this dictation. EMERGENCY DEPARTMENT COURSE and DIFFERENTIAL DIAGNOSIS/MDM: Vitals: Vitals: 04/19/24 0824 04/19/24 1007 BP: (!) 143/89 138/78 Pulse: 68 67 Resp: 14 14 Temp: 36.6 C (97.8 F) TempSrc: Temporal SpO2: 98% 98% Medications sodium chloride 0.9 % bolus 500 mL (500 mL IntraVENous New Bag 04/19/24 0835) Evaluated for his reported abdominal incision. Overall is well-appearing small area where bleeding was reportedly coming through that is about 2 mm. Palpable area underlying consistent with likely hematoma that is since clotted. No signs of active bleeding. No significant dehiscence. Abdomen otherwise is soft and nontender. He denies any infectious complaints. Denies any anemic symptoms. Patient and significant other endorsed concern about not having CT that was initial plan from visit the other day. Screening with repeat BMP, CBC, CT abdomen. Notified patient's surgeon who did not express any further recommendations. Patient discharged for follow-up with his urologic surgeon. Patient clinically has a hematoma. No significant wound dehiscence. No signs of active bleeding. ED Course as of 04/19/24 1336 MonApr 19, 2024 0844 Auto WBC: 6.7 [SP] 0844 HEMOGLOBIN(!): 10.8 Stable- 10.4- 5 days ago [SP] 0845 Platelets: 253 [SP] 0911 eGFR(!): 49.2 Stable 5 and 10 days ago. [SP] ED Course User Index [SP] Van Holcomb MD Diagnoses as of 04/19/24 1336 S/p nephrectomy Abdominal wall hematoma, initial encounter SCREENINGS MDM elements: The patient presented with chief complaint of bleeding from abdominal incision. The differential diagnosis associated with this patient's presentation includes surgical wound bleeding, hematoma, dehiscence. Our workup consisted of ordering/reviewing: Blood work, CT abdomen. To aid in management, I performed an independent interpretation of CT scan(s) CT abdomen on my review has a focal collection in the periumbilical region consistent with incisional hematoma. Some subcutaneous air expected in postsurgical setting. I discussed their care with Transport Operations Inspector sent secure message to Dr. Quintero, patient's urologic surgeon. The patient will be Discharged. Patient is in agreement with this plan. PROCEDURES: Unless otherwise noted below, none Procedures FINAL IMPRESSION 1. Abdominal wall hematoma, initial encounter 2. S/p nephrectomy DISPOSITION Discharge 04/19/2024 09:54:09 AM PATIENT REFERRED TO: Conner Quintero MD [address] [facility] [id number] Go on 04/24/2024 Shawanda Costa MD [address] [facility] [address] [facility] [address] [facility] [id number] Go to As needed, If symptoms worsen DISCHARGE MEDICATIONS: Discharge Medication List as of 04/19/2024 9:56 AM (Comment: Please note this report has been produced using speech recognition software and may contain errors related to that system including errors in grammar, punctuation, and spelling, as well as words and phrases that may be inappropriate. If there are any questions or concerns please feel free to contact the dictating provider for clarification.) Van Holcomb MD (electronically signed) Emergency Medicine Provider Van Holcomb MD 04/19/24 1338 documented in this encounter [facility] 04-19-2024 Physician Emergency department Note Images from the original note were not included. EMERGENCY DEPARTMENT ENCOUNTER Pt Name: Nery Rodriguez Birthdate 1950 Date of evaluation: 04/19/2024 ED Provider: Van Holcomb MD CHIEF COMPLAINT Chief Complaint Patient presents with Wound Check Midline incision to abdomen from recent surgery with drainage. HISTORY OF PRESENT ILLNESS (Location/Symptom, Timing/Onset, Context/Setting, Quality, Duration, Modifying Factors, Severity) Note limiting factors. I wore appropriate PPE for the entirety of this encounter. HPI Nery Rodriguez is a 73 y.o. who presents to the emergency department chief complaint of bleeding from his midline abdominal incision. Patient is a week and a half postop from laparoscopic right radical nephrectomy with robotic assistance by Dr. Quintero from Urology on April 08. Denies fevers or chills. Patient was evaluated in the emergency department 6 days ago he reportedly had a slight drop in his hemoglobin to 10.4 from 11.9. Plan for CT abdomen but patient reportedly was tired and left prior to treatment completion. Presented today for reevaluation. Denies any known bleeding disorder. Denies being on any anticoagulant or antiplatelet medications. Reports being able to urinate without difficulty. Nursing Notes were reviewed. Outside historians: Significant other REVIEW OF SYSTEMS Review of Systems Constitutional: Negative for fever. Respiratory: Negative for shortness of breath. Cardiovascular: Negative for chest pain. Gastrointestinal: Negative for abdominal pain and vomiting. Genitourinary: Negative for difficulty urinating, dysuria and frequency. Skin: Positive for wound. Neurological: Negative for light-headedness. Hematological: Does not bruise/bleed easily. Pertinent positives and negatives as per HPI PAST MEDICAL HISTORY Past Medical History: Diagnosis Date 2019 novel coronavirus disease (COVID-19) 02/18/2023 Abnormal EKG Allergic 01/15/1992 Anxiety Arthritis 02/13/2023 Emphysema lung (HCC) Enlarged prostate Hyperlipidemia Hypertension REM sleep behavior disorder Sepsis (HCC) SURGICAL HISTORY Past Surgical History: Procedure Laterality Date CYST REMOVAL 1970 Tailbone cyst CYSTOSCOPY 02/12/2023 C&P with stent KIDNEY SURGERY 02/15/2023 NEPHRECTOMY Right 04/08/2024 ROBOTIC RIGHT RADICAL NEPHRECTOMY - Right CURRENT MEDICATIONS Discharge Medication List as of 04/19/2024 9:56 AM CONTINUE these medications which have NOT CHANGED Details carbidopa-levodopa (Sinemet) 25-100 MG tablet Take 1 tablet by mouth 3 times daily., Starting Mon12/25/2023, Until Mon04/08/2024, Normal clonazePAM (KlonoPIN) 0.5 MG tablet Take 0.5 tablets (0.25 mg) by mouth Daily as needed for anxiety for up to 24 doses., Starting Mon03/19/2024, Normal cyclobenzaprine (Flexeril) 10 MG tablet Take 1 tablet (10 mg) by mouth Nightly as needed for muscle spasms., Starting Mon01/02/2023, Until Mon04/01/2024 at 2359, Normal docusate sodium (Colace) 100 MG capsule Take 1 capsule (100 mg) by mouth 2 times daily for 10 days., Starting Mon04/09/2024, Until Mon04/19/2024, Normal gabapentin (Neurontin) 400 MG capsule Take 1 capsule (400 mg) by mouth 3 times daily., Starting Mon04/10/2024, Until Katerin 04/10/2025, Normal loratadine (Claritin) 10 MG tablet Take 1 tablet (10 mg) by mouth daily., Starting 11/20/2023, Normal meloxicam (Mobic) 15 MG tablet Take by mouth Daily as needed., Starting Mon01/31/2023, Historical Med PARoxetine (Paxil) 10 MG tablet Take 1 tablet (10 mg) by mouth every morning., Starting Mon03/19/2024, Until 05/18/2024, Normal propranolol (Inderal) 20 MG tablet Take 1 tablet (20 mg) by mouth 2 times daily., Starting Mon02/20/2024, Until 08/18/2024, Normal rasagiline (Azilect) 0.5 MG tablet Take 1 tablet (0.5 mg) by mouth daily., Starting Mon12/25/2023, Until 03/24/2024, Normal tamsulosin (Flomax) 0.4 MG 24 hr capsule Take 1 capsule (0.4 mg) by mouth daily., Starting Mon11/13/2023, Normal telmisartan (MIcarDIS) 20 MG tablet Take 1 tablet (20 mg) by mouth daily., Starting Mon03/12/2024, Normal ALLERGIES Pollen extract and Ropinirole FAMILY HISTORY Family History Problem Relation Name Age of Onset Parkinsonism Mother Juhi Rodriguez High Blood Pressure Mother Juhi Rodriguez Depression Mother Juhi Rodriguez Hearing loss Mother Juhi Rodriguez Fainting Mother Juhi Rodriguez Hypertension Mother Juhi Rodriguez Mental illness Mother Juhi Rodriguez Heart disease Father Nery Rodriguez Sr. Bipolar disorder Sister Bailey Rodriguez Mental illness Sister Bailey Rodriguez SOCIAL HISTORY Social History Socioeconomic History Marital status: Tobacco Use Smoking status: Former Current packs/day: 0.00 Average packs/day: 1 pack/day for 25.0 years (25.0 ttl pk-yrs) Types: Cigarettes Start date: 11/26/1984 Quit date: 11/28/2008 Years since quittin.4 Smokeless tobacco: Current Tobacco comments: Current, daily use of nicotene pouches Vaping Use Vaping status: Never Used Substance and Sexual Activity Alcohol use: Not Currently Drug use: Never Comment: Caffeine: 1 cup of coffee; occasionally in afternoon Sexual activity: Not Currently Partners: Female control/protection: None Social Determinants of Health Financial Resource Strain: Low Risk (04/08/2024) Overall Financial Resource Strain (CARDIA) Difficulty of Paying Living Expenses: Not hard at all Food Insecurity: No Food Insecurity (04/08/2024) Hunger Vital Sign Worried About Running Out of Food in the Last Year: Never true Ran Out of Food in the Last Year: Never true Transportation Needs: No Transportation Needs (04/08/2024) PRAPARE - Transportation Lack of Transportation (Medical): No Lack of Transportation (Non-Medical): No Physical Activity: Sufficiently Active (04/08/2024) Exercise Vital Sign Days of Exercise per Week: 5 days Minutes of Exercise per Session: 30 min Stress: No Stress Concern Present (04/08/2024) [employer] - Occupational Stress Questionnaire Feeling of Stress : Only a little Social Connections: Socially Isolated (04/08/2024) Social Connection and Isolation Panel [NHANES] Frequency of Communication with Friends and Family: Never Frequency of Social Gatherings with Friends and Family: Twice a week Attends Orthodoxy Services: Never Active Member of Clubs or Organizations: No Attends Club or Organization Meetings: Never Marital Status: Intimate Partner Violence: Not At Risk (02/11/2023) Humiliation, Afraid, Rape, and Kick questionnaire Fear of Current or Ex-Partner: No Emotionally Abused: No Physically Abused: No Sexually Abused: No Housing Stability: Low Risk (04/08/2024) Housing Stability Vital Sign Unable to Pay for Housing in the Last Year: No Number of Times Moved in the Last Year: 0 Homeless in the Last Year: No PHYSICAL EXAM ED Triage Vitals Temp Pulse Resp BP -- -- -- -- SpO2 Temp src Heart Rate Source Patient Position -- -- -- -- BP Location FiO2 (%) -- -- Physical Exam Vitals and nursing note reviewed. Constitutional: General: He is not in acute distress. Comments: 73-year-old male HENT: Head: Normocephalic and atraumatic. Eyes: Extraocular Movements: Extraocular movements intact. Conjunctiva/sclera: Conjunctivae normal. Pupils: Pupils are equal, round, and reactive to light. Cardiovascular: Rate and Rhythm: Normal rate and regular rhythm. Pulmonary: Effort: Pulmonary effort is normal. Abdominal: Palpations: Abdomen is soft. Tenderness: There is no abdominal tenderness. There is no right CVA tenderness, left CVA tenderness or rebound. Comments: Small 2 mm area in the middle of midline abdominal incision with blood. No significant dehiscence. No erythema or warmth. Palpable area of firmness on the cranial portion of this incision. No palpable bruit. Associated yellowing with purple ecchymoses across lower abdomen. Otherwise well-appearing laparoscopic incisional sites. Musculoskeletal: Cervical back: Normal range of motion. Skin: General: Skin is warm and dry. Coloration: Skin is not pale. Neurological: Mental Status: He is alert. DIAGNOSTIC RESULTS RADIOLOGY (Per Emergency Physician): Interpretation per the Radiologist below, if available at the time of this note: CT abdomen pelvis w contrast Final Result 1. Postoperative changes of interval right nephrectomy. Fluid and edema in the surgical bed. 2. Postoperative soft tissue gas in the anterior abdominal wall. A lobulated hyperdense collection is present concerning for hematoma; superimposed infection cannot be excluded by imaging. 3. Multiple liver cysts. There is new intrahepatic biliary dilation upstream for the largest cyst. Consider ERCP for further evaluation. 4. Prostatomegaly. Report Dictated on Electronically Signed By: Daryl Monzon MD Electronically Signed Date/Time: 04/19/2024 9:39 AM EDT LABS: Labs Reviewed BASIC METABOLIC PANEL - Abnormal Result Value SODIUM 135 POTASSIUM 3.8 CHLORIDE 101 CARBON DIOXIDE 29 UREA NITROGEN 17 CREATININE 1.50 (*) GLUCOSE 128 (*) CALCIUM 9.4 ANION GAP 4 eGFR 49.2 (*) CBC WITH AUTO DIFFERENTIAL - Abnormal Auto WBC 6.7 RBC 3.35 (*) Hemoglobin 10.8 (*) Hematocrit 31.8 (*) MCV 94.9 MCH 32.2 MCHC 34.0 RDW 12.6 Platelets 253 MPV 8.3 (*) nRBC 0.0 Neutrophils Relative 69.6 Lymphocytes Relative 17.4 Monocytes Relative 7.1 Eosinophils Relative 3.7 Basophils Relative 0.4 Immature Grans % 1.8 Neutrophils Absolute 4.7 Lymphocytes Absolute 1.2 Monocytes Absolute 0.5 Eosinophils Absolute 0.3 Basophils Absolute 0.0 Immature Grans Absolute 0.1 (*) All other labs were within normal range or not returned as of this dictation. EMERGENCY DEPARTMENT COURSE and DIFFERENTIAL DIAGNOSIS/MDM: Vitals: Vitals: 04/19/24 0824 04/19/24 1007 BP: (!) 143/89 138/78 Pulse: 68 67 Resp: 14 14 Temp: 36.6 C (97.8 F) TempSrc: Temporal SpO2: 98% 98% Medications sodium chloride 0.9 % bolus 500 mL (500 mL IntraVENous New Bag 04/19/24 0835) Evaluated for his reported abdominal incision. Overall is well-appearing small area where bleeding was reportedly coming through that is about 2 mm. Palpable area underlying consistent with likely hematoma that is since clotted. No signs of active bleeding. No significant dehiscence. Abdomen otherwise is soft and nontender. He denies any infectious complaints. Denies any anemic symptoms. Patient and significant other endorsed concern about not having CT that was initial plan from visit the other day. Screening with repeat BMP, CBC, CT abdomen. Notified patient's surgeon who did not express any further recommendations. Patient discharged for follow-up with his urologic surgeon. Patient clinically has a hematoma. No significant wound dehiscence. No signs of active bleeding. ED Course as of 04/19/24 1336 MonApr 19, 2024 0844 Auto WBC: 6.7 [SP] 0844 HEMOGLOBIN(!): 10.8 Stable- 10.4- 5 days ago [SP] 0845 Platelets: 253 [SP] 0911 eGFR(!): 49.2 Stable 5 and 10 days ago. [SP] ED Course User Index [SP] Van Holcomb MD Diagnoses as of 04/19/24 1336 S/p nephrectomy Abdominal wall hematoma, initial encounter SCREENINGS MDM elements: The patient presented with chief complaint of bleeding from abdominal incision. The differential diagnosis associated with this patient's presentation includes surgical wound bleeding, hematoma, dehiscence. Our workup consisted of ordering/reviewing: Blood work, CT abdomen. To aid in management, I performed an independent interpretation of CT scan(s) CT abdomen on my review has a focal collection in the periumbilical region consistent with incisional hematoma. Some subcutaneous air expected in postsurgical setting. I discussed their care with Transport Operations Inspector sent secure message to Dr. Quintero, patient's urologic surgeon. The patient will be Discharged. Patient is in agreement with this plan. PROCEDURES: Unless otherwise noted below, none Procedures FINAL IMPRESSION 1. Abdominal wall hematoma, initial encounter 2. S/p nephrectomy DISPOSITION Discharge 04/19/2024 09:54:09 AM PATIENT REFERRED TO: Conner Quintero MD [address] [facility] [id number] Go on 04/24/2024 Shawanda Costa MD [address] [facility] [address] [facility] ED [address] [facility] [id number] Go to As needed, If symptoms worsen DISCHARGE MEDICATIONS: Discharge Medication List as of 04/19/2024 9:56 AM (Comment: Please note this report has been produced using speech recognition software and may contain errors related to that system including errors in grammar, punctuation, and spelling, as well as words and phrases that may be inappropriate. If there are any questions or concerns please feel free to contact the dictating provider for clarification.) Van Holcomb MD (electronically signed) Emergency Medicine Provider Van Holcomb MD 04/19/24 1338 [facility] 04-14-2024 Hospital Discharge instructions Gustavo Hayes II, MD - 04/14/2024 4:57 AM EDT You were seen in the emergency department today for bleeding from your surgical site. You are not bleeding heavily, but we were concerned that you could be bleeding into your abdomen. We advised that you stay to undergo a CT scan; however, you voiced your desire to leave. You are welcome to return to the emergency department at any time to complete this or seek further care. documented in this encounter [facility] 04-14-2024 Emergency department Note Pt wants to leave. Dr Leon notified. Anette Marvin RN 04/14/24 1272 [facility] 04-14-2024 Emergency department Note Pt wants to leave. Dr Leon notified. Anette Marvin RN 04/14/24 0448 Pt presented to triage window stating he is leaving. Pt encouraged to stay and receive treatment. Pt will be going back to room next Ene Morris RN 04/14/24 0005 Ene Morris RN 04/14/24 0014 EMERGENCY DEPARTMENT ENCOUNTER Pt Name: Nery Rodriguez Birthdate 1950 Date of evaluation: 04/13/2024 ED Provider: Gustavo Hayes II, MD CHIEF COMPLAINT Chief Complaint Patient presents with Post-op Problem Pt reports to ED with post-op problem; pt reports has incision site bleeding. Bleeding is controlled at this time. Pt states he had a kidney removed on Monday. Pt is stable with even & unlabored respirations in triage. HISTORY OF PRESENT ILLNESS (Location/Symptom, Timing/Onset, Context/Setting, Quality, Duration, Modifying Factors, Severity) Note limiting factors. I wore appropriate PPE for the entirety of this encounter. HPI Nery Rodriguez is a 73 y.o. who presents to the emergency department with concerns for bleeding from his surgical site. Patient had a right-sided nephrectomy on 04/08/2024. He states that he felt something in his abdomen pop when he was sleeping on the night prior to arrival. He states that he has been having a trickle of blood from the wound since that time. He denies any fevers or chills, nausea or vomiting, or abdominal pain. Nursing Notes were reviewed. Limitations to history: Outside historians: REVIEW OF SYSTEMS Review of Systems Pertinent positives and negatives as per HPI. PAST MEDICAL HISTORY Past Medical History: Diagnosis Date 2019 novel coronavirus disease (COVID-19) 02/18/2023 Abnormal EKG Allergic 01/15/1992 Anxiety Arthritis 02/13/2023 Emphysema lung (HCC) Enlarged prostate Hyperlipidemia Hypertension REM sleep behavior disorder Sepsis (HCC) SURGICAL HISTORY Past Surgical History: Procedure Laterality Date CYST REMOVAL 1970 Tailbone cyst CYSTOSCOPY 02/12/2023 C&P with stent KIDNEY SURGERY 02/15/2023 NEPHRECTOMY Right 04/08/2024 ROBOTIC RIGHT RADICAL NEPHRECTOMY - Right CURRENT MEDICATIONS Discharge Medication List as of 04/14/2024 4:57 AM CONTINUE these medications which have NOT CHANGED Details carbidopa-levodopa (Sinemet) 25-100 MG tablet Take 1 tablet by mouth 3 times daily., Starting Mon12/25/2023, Until Mon04/08/2024, Normal clonazePAM (KlonoPIN) 0.5 MG tablet Take 0.5 tablets (0.25 mg) by mouth Daily as needed for anxiety for up to 24 doses., Starting Mon03/19/2024, Normal cyclobenzaprine (Flexeril) 10 MG tablet Take 1 tablet (10 mg) by mouth Nightly as needed for muscle spasms., Starting Mon01/02/2023, Until Mon04/01/2024 at 2359, Normal docusate sodium (Colace) 100 MG capsule Take 1 capsule (100 mg) by mouth 2 times daily for 10 days., Starting Mon04/09/2024, Until Mon04/19/2024, Normal gabapentin (Neurontin) 400 MG capsule Take 1 capsule (400 mg) by mouth 3 times daily., Starting Mon04/10/2024, Until Katerin 04/10/2025, Normal loratadine (Claritin) 10 MG tablet Take 1 tablet (10 mg) by mouth daily., Starting Mon11/20/2023, Normal meloxicam (Mobic) 15 MG tablet Take by mouth Daily as needed., Starting Mon01/31/2023, Historical Med oxyCODONE (Roxicodone) 5 MG immediate release tablet Take 1 tablet (5 mg) by mouth every 6 hours as needed for severe pain (7-10) for up to 5 days., Starting Mon04/09/2024, Until 04/14/2024 at 2359, Normal PARoxetine (Paxil) 10 MG tablet Take 1 tablet (10 mg) by mouth every morning., Starting Mon03/19/2024, Until 05/18/2024, Normal propranolol (Inderal) 20 MG tablet Take 1 tablet (20 mg) by mouth 2 times daily., Starting Mon02/20/2024, Until 08/18/2024, Normal rasagiline (Azilect) 0.5 MG tablet Take 1 tablet (0.5 mg) by mouth daily., Starting Mon12/25/2023, Until 03/24/2024, Normal tamsulosin (Flomax) 0.4 MG 24 hr capsule Take 1 capsule (0.4 mg) by mouth daily., Starting Mon11/13/2023, Normal telmisartan (MIcarDIS) 20 MG tablet Take 1 tablet (20 mg) by mouth daily., Starting Mon03/12/2024, Normal ALLERGIES Pollen extract and Ropinirole FAMILY HISTORY Family History Problem Relation Name Age of Onset Parkinsonism Mother Juhi Rodriguez High Blood Pressure Mother Juhi Rodriguez Depression Mother Juhi Rodriguez Hearing loss Mother Juhi Rodriguez Fainting Mother Juhi Rodriguez Hypertension Mother Juhi Rodriguez Mental illness Mother Juhi Rodriguez Heart disease Father Nery Rodriguez Sr. Bipolar disorder Sister Bailey Rodriguez Mental illness Sister Bailey Rodriguez SOCIAL HISTORY Social History Socioeconomic History Marital status: Tobacco Use Smoking status: Former Current packs/day: 0.00 Average packs/day: 1 pack/day for 25.0 years (25.0 ttl pk-yrs) Types: Cigarettes Start date: 11/26/1984 Quit date: 11/28/2008 Years since quittin.3 Smokeless tobacco: Current Tobacco comments: Current, daily use of nicotene pouches Vaping Use Vaping status: Never Used Substance and Sexual Activity Alcohol use: Not Currently Drug use: Never Comment: Caffeine: 1 cup of coffee; occasionally in afternoon Sexual activity: Not Currently Partners: Female control/protection: None Social Determinants of Health Financial Resource Strain: Low Risk (04/08/2024) Overall Financial Resource Strain (CARDIA) Difficulty of Paying Living Expenses: Not hard at all Food Insecurity: No Food Insecurity (04/08/2024) Hunger Vital Sign Worried About Running Out of Food in the Last Year: Never true Ran Out of Food in the Last Year: Never true Transportation Needs: No Transportation Needs (04/08/2024) PRAPARE - Transportation Lack of Transportation (Medical): No Lack of Transportation (Non-Medical): No Physical Activity: Sufficiently Active (04/08/2024) Exercise Vital Sign Days of Exercise per Week: 5 days Minutes of Exercise per Session: 30 min Stress: No Stress Concern Present (04/08/2024) [employer] - Occupational Stress Questionnaire Feeling of Stress : Only a little Social Connections: Socially Isolated (04/08/2024) Social Connection and Isolation Panel [NHANES] Frequency of Communication with Friends and Family: Never Frequency of Social Gatherings with Friends and Family: Twice a week Attends Orthodoxy Services: Never Active Member of Clubs or Organizations: No Attends Club or Organization Meetings: Never Marital Status: Intimate Partner Violence: Not At Risk (02/11/2023) Humiliation, Afraid, Rape, and Kick questionnaire Fear of Current or Ex-Partner: No Emotionally Abused: No Physically Abused: No Sexually Abused: No Housing Stability: Low Risk (04/08/2024) Housing Stability Vital Sign Unable to Pay for Housing in the Last Year: No Number of Times Moved in the Last Year: 0 Homeless in the Last Year: No SCREENINGS Mario Coma Scale Best Eye Response: Spontaneous Best Verbal Response: Oriented Best Motor Response: Follows commands Mario Coma Scale Score: 15 PHYSICAL EXAM ED Triage Vitals Temp Heart Rate Resp BP 04/13/242 04/13/24221104/13/24221104/13/242211 36.6 C (97.8 F) 66 16 (!) 145/81 SpO2 Temp Source Heart Rate Source Patient Position 04/13/24221104/13/24221104/13/24221104/14/24 0339 98 % Temporal Monitor Sitting BP Location FiO2 (%) 04/14/24 0339 -- Left arm Physical Exam Vitals and nursing note reviewed. Constitutional: General: He is not in acute distress. Appearance: He is well-developed. HENT: Head: Normocephalic and atraumatic. Eyes: Conjunctiva/sclera: Conjunctivae normal. Cardiovascular: Rate and Rhythm: Normal rate and regular rhythm. Heart sounds: No murmur heard. Pulmonary: Effort: Pulmonary effort is normal. No respiratory distress. Breath sounds: Normal breath sounds. Abdominal: Palpations: Abdomen is soft. Tenderness: There is no abdominal tenderness. Musculoskeletal: General: No swelling. Cervical back: Neck supple. Skin: General: Skin is warm and dry. Capillary Refill: Capillary refill takes less than 2 seconds. Comments: Healing midline surgical incision with very small ooze of blood from the inferior edge of the incision. No evidence of dehiscence and wound looks to be properly approximated. Neurological: Mental Status: He is alert. Psychiatric: Mood and Affect: Mood normal. DIAGNOSTIC RESULTS RADIOLOGY (Per Emergency Physician): Interpretation per the Radiologist below, if available at the time of this note: No orders to display LABS: Labs Reviewed HEMOGLOBIN AND HEMATOCRIT, BLOOD - Abnormal Result Value Hemoglobin 10.4 (*) Hematocrit 31.2 (*) CREATININE, SERUM - Abnormal CREATININE 1.36 (*) eGFR 55.3 (*) All other labs were within normal range or not returned as of this dictation. EMERGENCY DEPARTMENT COURSE and DIFFERENTIAL DIAGNOSIS/MDM: Vitals: Vitals: 04/13/24 2212 04/14/24 0130 04/14/24 0134 04/14/24 0339 BP: (!) 145/81 (!) 159/80 (!) 159/80 (!) 163/82 BP Location: Left arm Patient Position: Sitting Pulse: 66 75 72 Resp: 16 16 16 Temp: 36.6 C (97.8 F) TempSrc: Temporal SpO2: 98% 96% 100% Weight: Height: 73-year-old male presenting to the emergency department with concerns for bleeding from his wound. Patient has a very small ooze of blood, and I do not suspect brisk bleed. Nonetheless, intra-abdominal bleeding cannot be excluded. Patient has hemoglobin of 10.4, which is slightly lower than his baseline. Ordered CT scan of the abdomen and pelvis to exclude intra-abdominal hemorrhage. However, patient voiced a strong desire to leave prior to getting his CT scan. I discussed with patient the risks of leaving and the indications for CT scan. Patient voiced understanding but stated that he had waited in the emergency department too long, and he wanted to discharge so that he could go to the ED in [place] near his house to get the CT scan done faster. Patient discharged after informed refusal. Diagnoses as of 04/14/24 0605 Postoperative hemorrhage of subcutaneous tissue following non-dermatologic procedure External records reviewed: Diagnostics interpreted by me: Discussions with other clinicians: Chronic conditions impacting care: Social determinants of health affecting care: ED Medications managed: Medications - No data to display Prescription drugs considered: PROCEDURES: Unless otherwise noted below, none Procedures FINAL IMPRESSION 1. Postoperative hemorrhage of subcutaneous tissue following non-dermatologic procedure DISPOSITION Discharge 04/14/2024 04:53:39 AM PATIENT REFERRED TO: No follow-up provider specified. DISCHARGE MEDICATIONS: Discharge Medication List as of 04/14/2024 4:57 AM (Comment: Please note this report has been produced using speech recognition software and may contain errors related to that system including errors in grammar, punctuation, and spelling, as well as words and phrases that may be inappropriate. If there are any questions or concerns please feel free to contact the dictating provider for clarification.) Gustavo Hayes II, MD (electronically signed) Emergency Medicine Provider Gustavo Hayes II, MD Resident 04/14/24 0608 Pt alert/oriented x3. Pt notified of the risks with leaving against medical advise. Pt notified of the risks of and disability. Anette Marvin RN 04/14/24 0508 documented in this encounter [facility] 04-14-2024 Emergency department Note Pt presented to triage window stating he is leaving. Pt encouraged to stay and receive treatment. Pt will be going back to room next Ene Morris RN 04/14/24 0005 Ene Morris RN 04/14/24 0014 [facility] 04-13-2024 Physician Emergency department Note EMERGENCY DEPARTMENT ENCOUNTER Pt Name: Nery Rodriguez Birthdate 1950 Date of evaluation: 04/13/2024 ED Provider: Gustavo Hayes II, MD CHIEF COMPLAINT Chief Complaint Patient presents with Post-op Problem Pt reports to ED with post-op problem; pt reports has incision site bleeding. Bleeding is controlled at this time. Pt states he had a kidney removed on Monday. Pt is stable with even & unlabored respirations in triage. HISTORY OF PRESENT ILLNESS (Location/Symptom, Timing/Onset, Context/Setting, Quality, Duration, Modifying Factors, Severity) Note limiting factors. I wore appropriate PPE for the entirety of this encounter. HPI Nery Rodriguez is a 73 y.o. who presents to the emergency department with concerns for bleeding from his surgical site. Patient had a right-sided nephrectomy on 04/08/2024. He states that he felt something in his abdomen pop when he was sleeping on the night prior to arrival. He states that he has been having a trickle of blood from the wound since that time. He denies any fevers or chills, nausea or vomiting, or abdominal pain. Nursing Notes were reviewed. Limitations to history: Outside historians: REVIEW OF SYSTEMS Review of Systems Pertinent positives and negatives as per HPI. PAST MEDICAL HISTORY Past Medical History: Diagnosis Date 2019 novel coronavirus disease (COVID-19) 02/18/2023 Abnormal EKG Allergic 01/15/1992 Anxiety Arthritis 02/13/2023 Emphysema lung (HCC) Enlarged prostate Hyperlipidemia Hypertension REM sleep behavior disorder Sepsis (HCC) SURGICAL HISTORY Past Surgical History: Procedure Laterality Date CYST REMOVAL 1970 Tailbone cyst CYSTOSCOPY 02/12/2023 C&P with stent KIDNEY SURGERY 02/15/2023 NEPHRECTOMY Right 04/08/2024 ROBOTIC RIGHT RADICAL NEPHRECTOMY - Right CURRENT MEDICATIONS Discharge Medication List as of 04/14/2024 4:57 AM CONTINUE these medications which have NOT CHANGED Details carbidopa-levodopa (Sinemet) 25-100 MG tablet Take 1 tablet by mouth 3 times daily., Starting Mon12/25/2023, Until Mon04/08/2024, Normal clonazePAM (KlonoPIN) 0.5 MG tablet Take 0.5 tablets (0.25 mg) by mouth Daily as needed for anxiety for up to 24 doses., Starting Mon03/19/2024, Normal cyclobenzaprine (Flexeril) 10 MG tablet Take 1 tablet (10 mg) by mouth Nightly as needed for muscle spasms., Starting Mon01/02/2023, Until Mon04/01/2024 at 2359, Normal docusate sodium (Colace) 100 MG capsule Take 1 capsule (100 mg) by mouth 2 times daily for 10 days., Starting Mon04/09/2024, Until Mon04/19/2024, Normal gabapentin (Neurontin) 400 MG capsule Take 1 capsule (400 mg) by mouth 3 times daily., Starting Mon04/10/2024, Until Katerin 04/10/2025, Normal loratadine (Claritin) 10 MG tablet Take 1 tablet (10 mg) by mouth daily., Starting Mon11/20/2023, Normal meloxicam (Mobic) 15 MG tablet Take by mouth Daily as needed., Starting Mon01/31/2023, Historical Med oxyCODONE (Roxicodone) 5 MG immediate release tablet Take 1 tablet (5 mg) by mouth every 6 hours as needed for severe pain (7-10) for up to 5 days., Starting Mon04/09/2024, Until Mon04/14/2024 at 2359, Normal PARoxetine (Paxil) 10 MG tablet Take 1 tablet (10 mg) by mouth every morning., Starting Mon03/19/2024, Until 05/18/2024, Normal propranolol (Inderal) 20 MG tablet Take 1 tablet (20 mg) by mouth 2 times daily., Starting Mon02/20/2024, Until 08/18/2024, Normal rasagiline (Azilect) 0.5 MG tablet Take 1 tablet (0.5 mg) by mouth daily., Starting Mon12/25/2023, Until 03/24/2024, Normal tamsulosin (Flomax) 0.4 MG 24 hr capsule Take 1 capsule (0.4 mg) by mouth daily., Starting Mon11/13/2023, Normal telmisartan (MIcarDIS) 20 MG tablet Take 1 tablet (20 mg) by mouth daily., Starting Mon03/12/2024, Normal ALLERGIES Pollen extract and Ropinirole FAMILY HISTORY Family History Problem Relation Name Age of Onset Parkinsonism Mother Juhi Rodriguez High Blood Pressure Mother Juhi Rodriguez Depression Mother Juhi Rodriguez Hearing loss Mother Juhi Rodriguez Fainting Mother Juhi Rodriguez Hypertension Mother Juhi Rodriguez Mental illness Mother Juhi Rodriguez Heart disease Father Nery Rodriguez Sr. Bipolar disorder Sister Bailey Rodriguez Mental illness Sister Bailey Rodriguez SOCIAL HISTORY Social History Socioeconomic History Marital status: Tobacco Use Smoking status: Former Current packs/day: 0.00 Average packs/day: 1 pack/day for 25.0 years (25.0 ttl pk-yrs) Types: Cigarettes Start date: 11/26/1984 Quit date: 11/28/2008 Years since quittin.3 Smokeless tobacco: Current Tobacco comments: Current, daily use of nicotene pouches Vaping Use Vaping status: Never Used Substance and Sexual Activity Alcohol use: Not Currently Drug use: Never Comment: Caffeine: 1 cup of coffee; occasionally in afternoon Sexual activity: Not Currently Partners: Female control/protection: None Social Determinants of Health Financial Resource Strain: Low Risk (04/08/2024) Overall Financial Resource Strain (CARDIA) Difficulty of Paying Living Expenses: Not hard at all Food Insecurity: No Food Insecurity (04/08/2024) Hunger Vital Sign Worried About Running Out of Food in the Last Year: Never true Ran Out of Food in the Last Year: Never true Transportation Needs: No Transportation Needs (04/08/2024) PRAPARE - Transportation Lack of Transportation (Medical): No Lack of Transportation (Non-Medical): No Physical Activity: Sufficiently Active (04/08/2024) Exercise Vital Sign Days of Exercise per Week: 5 days Minutes of Exercise per Session: 30 min Stress: No Stress Concern Present (04/08/2024) [employer] - Occupational Stress Questionnaire Feeling of Stress : Only a little Social Connections: Socially Isolated (04/08/2024) Social Connection and Isolation Panel [NHANES] Frequency of Communication with Friends and Family: Never Frequency of Social Gatherings with Friends and Family: Twice a week Attends Orthodoxy Services: Never Active Member of Clubs or Organizations: No Attends Club or Organization Meetings: Never Marital Status: Intimate Partner Violence: Not At Risk (02/11/2023) Humiliation, Afraid, Rape, and Kick questionnaire Fear of Current or Ex-Partner: No Emotionally Abused: No Physically Abused: No Sexually Abused: No Housing Stability: Low Risk (04/08/2024) Housing Stability Vital Sign Unable to Pay for Housing in the Last Year: No Number of Times Moved in the Last Year: 0 Homeless in the Last Year: No SCREENINGS [place] Coma Scale Best Eye Response: Spontaneous Best Verbal Response: Oriented Best Motor Response: Follows commands Mario Coma Scale Score: 15 PHYSICAL EXAM ED Triage Vitals Temp Heart Rate Resp BP 04/13/24221104/13/24221104/13/24221104/13/242211 36.6 C (97.8 F) 66 16 (!) 145/81 SpO2 Temp Source Heart Rate Source Patient Position 04/13/24221104/13/24221104/13/24221104/14/24338 98 % Temporal Monitor Sitting BP Location FiO2 (%) 04/14/24 0339 -- Left arm Physical Exam Vitals and nursing note reviewed. Constitutional: General: He is not in acute distress. Appearance: He is well-developed. HENT: Head: Normocephalic and atraumatic. Eyes: Conjunctiva/sclera: Conjunctivae normal. Cardiovascular: Rate and Rhythm: Normal rate and regular rhythm. Heart sounds: No murmur heard. Pulmonary: Effort: Pulmonary effort is normal. No respiratory distress. Breath sounds: Normal breath sounds. Abdominal: Palpations: Abdomen is soft. Tenderness: There is no abdominal tenderness. Musculoskeletal: General: No swelling. Cervical back: Neck supple. Skin: General: Skin is warm and dry. Capillary Refill: Capillary refill takes less than 2 seconds. Comments: Healing midline surgical incision with very small ooze of blood from the inferior edge of the incision. No evidence of dehiscence and wound looks to be properly approximated. Neurological: Mental Status: He is alert. Psychiatric: Mood and Affect: Mood normal. DIAGNOSTIC RESULTS RADIOLOGY (Per Emergency Physician): Interpretation per the Radiologist below, if available at the time of this note: No orders to display LABS: Labs Reviewed HEMOGLOBIN AND HEMATOCRIT, BLOOD - Abnormal Result Value Hemoglobin 10.4 (*) Hematocrit 31.2 (*) CREATININE, SERUM - Abnormal CREATININE 1.36 (*) eGFR 55.3 (*) All other labs were within normal range or not returned as of this dictation. EMERGENCY DEPARTMENT COURSE and DIFFERENTIAL DIAGNOSIS/MDM: Vitals: Vitals: 04/13/24221104/14/240 04/14/2413304/14/24338 BP: (!) 145/81 (!) 159/80 (!) 159/80 (!) 163/82 BP Location: Left arm Patient Position: Sitting Pulse: 66 75 72 Resp: 16 16 16 Temp: 36.6 C (97.8 F) TempSrc: Temporal SpO2: 98% 96% 100% Weight: Height: 73-year-old male presenting to the emergency department with concerns for bleeding from his wound. Patient has a very small ooze of blood, and I do not suspect brisk bleed. Nonetheless, intra-abdominal bleeding cannot be excluded. Patient has hemoglobin of 10.4, which is slightly lower than his baseline. Ordered CT scan of the abdomen and pelvis to exclude intra-abdominal hemorrhage. However, patient voiced a strong desire to leave prior to getting his CT scan. I discussed with patient the risks of leaving and the indications for CT scan. Patient voiced understanding but stated that he had waited in the emergency department too long, and he wanted to discharge so that he could go to the ED in [place] near his house to get the CT scan done faster. Patient discharged after informed refusal. Diagnoses as of 04/14/24 06 Postoperative hemorrhage of subcutaneous tissue following non-dermatologic procedure External records reviewed: Diagnostics interpreted by me: Discussions with other clinicians: Chronic conditions impacting care: Social determinants of health affecting care: ED Medications managed: Medications - No data to display Prescription drugs considered: PROCEDURES: Unless otherwise noted below, none Procedures FINAL IMPRESSION 1. Postoperative hemorrhage of subcutaneous tissue following non-dermatologic procedure DISPOSITION Discharge 04/14/2024 04:53:39 AM PATIENT REFERRED TO: No follow-up provider specified. DISCHARGE MEDICATIONS: Discharge Medication List as of 04/14/2024 4:57 AM (Comment: Please note this report has been produced using speech recognition software and may contain errors related to that system including errors in grammar, punctuation, and spelling, as well as words and phrases that may be inappropriate. If there are any questions or concerns please feel free to contact the dictating provider for clarification.) Gustavo Hayes II, MD (electronically signed) Emergency Medicine Provider Gustavo Hayes II, MD Resident 04/14/24 06 T [facility] 04-13-2024 Telephone encounter Note S: Patient spoke with [facility] nurse regarding stitches from surgery B: Onset of symptoms/concern last night A: Right ROBOTIC RIGHT RADICAL NEPHRECTOMY on Sunday 04/08. Dressings have seamus changed as ordered. Last night he felt a pull on the incision, states it is now bleeding. Incision is 4 inches long. Bleeding from middle area where it looks like he popped a stitch were there is now a small hole about the half the size of an eraser. Bleeding is about enough to saturate a cotton ball in one minute. Changed dressing about 5 minutes ago and not bleeding through. Pain is minimal unless he is moving from sitting to standing. R: Paged provider on-call. Dr Small advised patient go to the [facility] emergency department. will drive her as advised. Patient also advised to place clean gauze over wound then clean cloth and hold pressure on the way to the emergency. Patient states understanding. Patient understands care advice. No further needs at this time. Patient instructed to call back with new or worsening symptoms. Reason for Disposition [1] Bleeding from incision AND [2] won't stop after 10 minutes of direct pressure Protocols used: Post-Op Incision Symptoms and [id number] [facility] 04-13-2024 Miscellaneous Notes S: Patient spoke with [facility] nurse regarding stitches from surgery B: Onset of symptoms/concern last night A: Right ROBOTIC RIGHT RADICAL NEPHRECTOMY on Sunday 04/08. Dressings have seamus changed as ordered. Last night he felt a pull on the incision, states it is now bleeding. Incision is 4 inches long. Bleeding from middle area where it looks like he popped a stitch were there is now a small hole about the half the size of an eraser. Bleeding is about enough to saturate a cotton ball in one minute. Changed dressing about 5 minutes ago and not bleeding through. Pain is minimal unless he is moving from sitting to standing. R: Paged provider on-call. Dr Small advised patient go to the [facility] emergency department. will drive her as advised. Patient also advised to place clean gauze over wound then clean cloth and hold pressure on the way to the emergency. Patient states understanding. Patient understands care advice. No further needs at this time. Patient instructed to call back with new or worsening symptoms. Reason for Disposition [1] Bleeding from incision AND [2] won't stop after 10 minutes of direct pressure Protocols used: Post-Op Incision Symptoms and [id number] documented in this encounter [facility] 04-13-2024 Emergency department Note Pt alert/oriented x3. Pt notified of the risks with leaving against medical advise. Pt notified of the risks of and disability. Anette Marvin RN 04/14/24 0508 [facility] 04-09-2024 Nurse Note Patient given the AVS and this RN went over the AVS with the patient. Patient had no questions or concerns. PIV removed [facility] 04-09-2024 Nurse Note Patient given the AVS and this RN went over the AVS with the patient. Patient had no questions or concerns. PIV removed documented in this encounter [facility] 04-09-2024 Plan of care note The patient is Moderately Stable - Low risk of patient condition declining or worsening The patient's goals for the shift include The clinical goals for the shift include [facility] 04-09-2024 Miscellaneous Notes The patient is Moderately Stable - Low risk of patient condition declining or worsening The patient's goals for the shift include The clinical goals for the shift include Report called. updated. Dinner ordered. DOS: April 08, 2024 Pre-op Diagnosis: rightMALIGNANT NEOPLASM OF KIDNEY, EXCEPT PELVIS Post-op Diagnosis:right MALIGNANT NEOPLASM OF KIDNEY, EXCEPT PELVIS Operation: right RADICAL NEPHRECTOMY (laparoscopic with robotic assistance) Surgeon : Conner Quintero M.D. Powerhouse Laborer: Reji canales Anesthesia: General Special Consideration: Modifier Indications:Nery Rodriguez is a 73 y.o. year-old male who was referred to ri for treatment of a right sided renal mass. A CT scan revealed central, solid renal mass and large renal cyst. The patient was recommended to undergo nephrectomy with da Mae surgical robot. All risks, benefits and alternatives were discussed, and all questions were answered prior to proceeding. Individual considerations: Mass Size: 2.7cm Mass locatio and side: right inter-pole Vessel anomaly: single artery, double vein Intraoperative ultrasound: none EBL: 15 ml Procedure : Informed consent was obtained. Patient was given perioperative antibiotics and DVT prophylaxis in preop holding area. General anesthesia was administered. A Kamara catheter was placed. A nasogastrictube was placed by anesthesia. Patient was placed in the flank position . All the pressure points were padded and patient secured to the table with adhesive tapes. STEP 1; PORT PLACEMENT Pneumoperitoneum of 12 mmHg was created by placing a Veress needle through in hypochondrium. Using a visiport a 12-mm cannula the placed lateral to the mid calvicular line at the level midway between umbilicus and costal margin. A 30 binocular telescope, looking upward, was then placed through the camera port. All other ports were placed under direct vision. Three 8 mm robotic ports one onright side and two on left side of camera port, one 12 mm was placed just lateral to umbilicus and one 5 mm right port was placed at midline superior to umbilicus for liver retractor. After placing the ports the pneumoperitoneum pressure was decreased to 10 mmHg. The surgical cart was then docked to the ports. STEP 2; Exposure of kidney The peritoneum was incised from the lower pole of kidney to Hepatic flexure lateral to the white line of Toldt. The colon was then reflected medially to expose the ureter and gonadal vessels . Care was taken not to dissect in and lateral to fascia of Gerota. A plane of dissection was created between the ureter and the gonadal vein and ureter was followed superiorly to the renal hilum. The second part of duodenum was carefully reflected medially to expose the renal hilum. OPERATIVE FINDING 3 separate renal veins STEP 3; HILAR DISSECTION The renal hilum was carefully dissected to isolate the renal vessels. Single renal vein and single renal artery were found and isolated and skeletenized free of hilar fat. There was a second smaller renal vein, which was divided between hemolock clip and bipolar The renal artery was divided using 35mm vascular load da mae stapler. The renal vein was then divided in a similar fashion. STEP 4: Renal Dissection Next the upper pole attachments were divided using electrocautery. Bipolar was used for hemostasis. The adrenal did appear uninvolved and was spared. The lateral and infererior attachments were divided. The ureter was transected between hemolock clips. The specimen was now free. STEP 6; SPECIMEN RETRIEVAL The specimen was placed in a 15 endocatch bag. It was removed from the periumbilical port, after lengthening the incision proximal and distal. . The incision was closed using 0 looped PDS. . The fascia at 12 mm ports was closed with 0 VIcryl. Skin was closed by subcuticular 4-0 Monocryl. Patient tolerated the procedure well. documented in this encounter [facility] 04-09-2024 Note Physician Discharge Summary Patient ID: Nery Rodriguez [id number] 73 y.o. 1950 Admit date: 04/08/2024 Discharge date: 04/09/24 Admitting Physician: Conner Quintero MD Discharge Physician: Conner Quintero MD Admission Diagnoses: Other specified disorders of kidney and ureter [N28.89] Renal mass, right [N28.89] Right renal mass [N28.89] Right clear cell renal carcinoma Discharge Diagnoses: Other specified disorders of kidney and ureter [N28.89] Renal mass, right [N28.89] Right renal mass [N28.89] BPH with urinary obstruction Admission Condition: good Discharged Condition: good Indication for Admission: Other specified disorders of kidney and ureter [N28.89] Renal mass, right [N28.89] Right renal mass [N28.89] Hospital Course: Patient taken to OR for Robo R Radical Nx and tolerated procedure without any complications. Immediately post-op, patient was extubated and transferred to PACU in stable condition. After PACU criteria met and within 24 hours of procedure, patient was transferred to floor. Throughout benita-operative course, there was monitoring of vital signs, urine output and clinical status of patient. Diet was subsequently advanced and by the day of discharge, patient was ambulating, voiding and tolerating PO without difficulty. Pain was well controlled with oral medications by time of discharge. Kamara was removed and he successfully passed void trial prior to discharge. Disposition: home Patient Instructions: Medication List START taking these medications docusate sodium 100 MG capsule Commonly known as: Colace Take 1 capsule (100 mg) by mouth 2 times daily for 10 days. oxyCODONE 5 MG immediate release tablet Commonly known as: Roxicodone Take 1 tablet (5 mg) by mouth every 6 hours as needed for severe pain (7-10) for up to 5 days. CONTINUE taking these medications carbidopa-levodopa 25-100 MG tablet Commonly known as: Sinemet Take 1 tablet by mouth 3 times daily. clonazePAM 0.5 MG tablet Commonly known as: KlonoPIN Take 0.5 tablets (0.25 mg) by mouth Daily as needed for anxiety for up to 24 doses. cyclobenzaprine 10 MG tablet Commonly known as: Flexeril Take 1 tablet (10 mg) by mouth Nightly as needed for muscle spasms. gabapentin 400 MG capsule Commonly known as: Neurontin Take 5 before bedime loratadine 10 MG tablet Commonly known as: Claritin Take 1 tablet (10 mg) by mouth daily. meloxicam 15 MG tablet Commonly known as: Mobic PARoxetine 10 MG tablet Commonly known as: Paxil Take 1 tablet (10 mg) by mouth every morning. propranolol 20 MG tablet Commonly known as: Inderal Take 1 tablet (20 mg) by mouth 2 times daily. rasagiline 0.5 MG tablet Commonly known as: Azilect Take 1 tablet (0.5 mg) by mouth daily. tamsulosin 0.4 MG 24 hr capsule Commonly known as: Flomax Take 1 capsule (0.4 mg) by mouth daily. telmisartan 20 MG tablet Commonly known as: MIcarDIS Take 1 tablet (20 mg) by mouth daily. Where to Get Your Medications These medications were sent to [facility] [address] [place] [id number] Hours: Monday to Monday 10 am to 6 pm docusate sodium 100 MG capsule oxyCODONE 5 MG immediate release tablet Activity: activity as tolerated and no heavy lifting for 4-6 weeks Diet: regular diet Wound Care: Ok to shower, but no baths or swimming pools. Allow soap and water to run over incision site and pat dry. Avoid rubbing at incision as this could disrupt the closure. Follow-up with your surgeon for post-operative follow up. Call office phone number to schedule your appointment. Signed: Christiano Santiago MD PGY-1 Urology 04/09/24 2:07 PM [facility] 04-09-2024 Hospital course Narrative Physician Discharge Summary Patient ID: Nery Rodriguez [id number] 73 y.o. 1950 Admit date: 04/08/2024 Discharge date: 04/09/24 Admitting Physician: Conner Quintero MD Discharge Physician: Conner Quintero MD Admission Diagnoses: Other specified disorders of kidney and ureter [N28.89] Renal mass, right [N28.89] Right renal mass [N28.89] Discharge Diagnoses: Other specified disorders of kidney and ureter [N28.89] Renal mass, right [N28.89] Right renal mass [N28.89] BPH with urinary obstruction Admission Condition: good Discharged Condition: good Indication for Admission: Other specified disorders of kidney and ureter [N28.89] Renal mass, right [N28.89] Right renal mass [N28.89] Hospital Course: Patient taken to OR for Robo R Radical Nx and tolerated procedure without any complications. Immediately post-op, patient was extubated and transferred to PACU in stable condition. After PACU criteria met and within 24 hours of procedure, patient was transferred to floor. Throughout benita-operative course, there was monitoring of vital signs, urine output and clinical status of patient. Diet was subsequently advanced and by the day of discharge, patient was ambulating, voiding and tolerating PO without difficulty. Pain was well controlled with oral medications by time of discharge. Kamara was removed and he successfully passed void trial prior to discharge. Disposition: home Patient Instructions: Medication List START taking these medications docusate sodium 100 MG capsule Commonly known as: Colace Take 1 capsule (100 mg) by mouth 2 times daily for 10 days. oxyCODONE 5 MG immediate release tablet Commonly known as: Roxicodone Take 1 tablet (5 mg) by mouth every 6 hours as needed for severe pain (7-10) for up to 5 days. CONTINUE taking these medications carbidopa-levodopa 25-100 MG tablet Commonly known as: Sinemet Take 1 tablet by mouth 3 times daily. clonazePAM 0.5 MG tablet Commonly known as: KlonoPIN Take 0.5 tablets (0.25 mg) by mouth Daily as needed for anxiety for up to 24 doses. cyclobenzaprine 10 MG tablet Commonly known as: Flexeril Take 1 tablet (10 mg) by mouth Nightly as needed for muscle spasms. gabapentin 400 MG capsule Commonly known as: Neurontin Take 5 before bedime loratadine 10 MG tablet Commonly known as: Claritin Take 1 tablet (10 mg) by mouth daily. meloxicam 15 MG tablet Commonly known as: Mobic PARoxetine 10 MG tablet Commonly known as: Paxil Take 1 tablet (10 mg) by mouth every morning. propranolol 20 MG tablet Commonly known as: Inderal Take 1 tablet (20 mg) by mouth 2 times daily. rasagiline 0.5 MG tablet Commonly known as: Azilect Take 1 tablet (0.5 mg) by mouth daily. tamsulosin 0.4 MG 24 hr capsule Commonly known as: Flomax Take 1 capsule (0.4 mg) by mouth daily. telmisartan 20 MG tablet Commonly known as: MIcarDIS Take 1 tablet (20 mg) by mouth daily. Where to Get Your Medications These medications were sent to [facility] [address] [place] [address] Hours: Monday to Monday 10 am to 6 pm docusate sodium 100 MG capsule oxyCODONE 5 MG immediate release tablet Activity: activity as tolerated and no heavy lifting for 4-6 weeks Diet: regular diet Wound Care: Ok to shower, but no baths or swimming pools. Allow soap and water to run over incision site and pat dry. Avoid rubbing at incision as this could disrupt the closure. Follow-up with your surgeon for post-operative follow up. Call office phone number to schedule your appointment. Signed: Christiano Santiago MD PGY-1 Urology 04/09/24 2:07 PM documented in this encounter [facility] 04-09-2024 Note UROLOGY PROGRESS NOTE PATIENT NAME: Nery Rodriguez DATE OF : 1950 ADMISSION DATE: 04/08/2024 TODAY'S DATE: 04/09/2024 Subjective No acute events overnight. Afebrile Pain controlled with medications Tolerating diet without nausea Has not been OOB No IS Passing flatus Objective VS: BP 102/58 (BP Location: Left arm, Patient Position: Lying) Pulse 62 Temp 37.6 ?C (99.6 ?F) (Temporal) Resp 16 Ht 6' 1 (1.854 m) Wt 220 lb (99.8 kg) SpO2 92% BMI 29.03 kg/m? I & O - 24hr: I/O last 3 completed shifts: In: 1696.1 (17 mL/kg) [I.V.:1596.1 (16 mL/kg); IV Piggyback:100] Out: 300 (3 mL/kg) [Urine:250 (0.1 mL/kg/hr); Blood:50] Weight: 99.8 kg I/O this shift: In: 500 [P.O.:500] Out: 400 [Urine:400] Physical Exam: General: Neck: Resp: Abdomen: No acute distress Supple Normal effort, no respiratory distress, on RA Soft, ATTP, nondistended, Incisions C/D/I : Kamara in place draining yellow urine Skin: Skin color, texture, turgor normal, no rashes or lesions Labs and Imaging Studies Labs: CBC: Lab Results Component Value Date WBC 13.2 (H) 04/09/2024 HGB 11.9 (L) 04/09/2024 HCT 35.2 (L) 04/09/2024 MCV 93.6 04/09/2024 PLT 235 04/09/2024 BMP: Lab Results Component Value Date GLUCOSE 152 (H) 04/09/2024 CALCIUM 8.8 04/09/2024 NA 132 (L) 04/09/2024 K 5.0 04/09/2024 CO2 20 (L) 04/09/2024 CL 103 04/09/2024 BUN 23 (H) 04/09/2024 CREATININE 1.52 (H) 04/09/2024 PT/INR: Lab Results Component Value Date INR 1.0 08/25/2020 PROTIME 10.8 08/25/2020 U/A: N/A Urine Culture: N/A Blood Culture: N/A Imaging Studies: N/A Assessment and Plan ASSESSMENT: 73 y.o. male with right renal mass s/p robotic right radical nephrectomy PLAN: - VT this AM - Regular diet/IVF @75cc/hr - Daily labs reviewed. - WBC 13.2, likely reactive - Cr 1.52, baseline ~1, ALEXIA likely secondary to loss of renal units. Hold losartan and continue IVF. - Periop Ancef - Pain control: tylenol scheduled, PRN oxy and dilaudid - Home meds as ordered - SQH and SCDs for DVT PPX - IS - OOB/Ambulate - Possible discharge home today Shelbi Canales MD Urology PGY-4 04/09/2024 6:06 AM Page Email Marketer Resident with questions [facility] 04-09-2024 History of Present illness Narrative UROLOGY PROGRESS NOTE PATIENT NAME: Nery Rodriguez DATE OF : 1950 ADMISSION DATE: 04/08/2024 TODAY'S DATE: 04/09/2024 Subjective No acute events overnight. Afebrile Pain controlled with medications Tolerating diet without nausea Has not been OOB No IS Passing flatus Objective VS: BP 102/58 (BP Location: Left arm, Patient Position: Lying) Pulse 62 Temp 37.6 C (99.6 F) (Temporal) Resp 16 Ht 6' 1 (1.854 m) Wt 220 lb (99.8 kg) SpO2 92% BMI 29.03 kg/m I & O - 24hr: I/O last 3 completed shifts: In: 1696.1 (17 mL/kg) [I.V.:1596.1 (16 mL/kg); IV Piggyback:100] Out: 300 (3 mL/kg) [Urine:250 (0.1 mL/kg/hr); Blood:50] Weight: 99.8 kg I/O this shift: In: 500 [P.O.:500] Out: 400 [Urine:400] Physical Exam: General: Neck: Resp: Abdomen: No acute distress Supple Normal effort, no respiratory distress, on RA Soft, ATTP, nondistended, Incisions C/D/I : Kamara in place draining yellow urine Skin: Skin color, texture, turgor normal, no rashes or lesions Labs and Imaging Studies Labs: CBC: Lab Results Component Value Date WBC 13.2 (H) 04/09/2024 HGB 11.9 (L) 04/09/2024 HCT 35.2 (L) 04/09/2024 MCV 93.6 04/09/2024 PLT 235 04/09/2024 BMP: Lab Results Component Value Date GLUCOSE 152 (H) 04/09/2024 CALCIUM 8.8 04/09/2024 NA 132 (L) 04/09/2024 K 5.0 04/09/2024 CO2 20 (L) 04/09/2024 CL 103 04/09/2024 BUN 23 (H) 04/09/2024 CREATININE 1.52 (H) 04/09/2024 PT/INR: Lab Results Component Value Date INR 1.0 08/25/2020 PROTIME 10.8 08/25/2020 U/A: N/A Urine Culture: N/A Blood Culture: N/A Imaging Studies: N/A Assessment and Plan ASSESSMENT: 73 y.o. male with right renal mass s/p robotic right radical nephrectomy PLAN: - VT this AM - Regular diet/IVF @75cc/hr - Daily labs reviewed. - WBC 13.2, likely reactive - Cr 1.52, baseline ~1, ALEXIA likely secondary to loss of renal units. Hold losartan and continue IVF. - Periop Ancef - Pain control: tylenol scheduled, PRN oxy and dilaudid - Home meds as ordered - SQH and SCDs for DVT PPX - IS - OOB/Ambulate - Possible discharge home today Shelbi Canales MD Urology PGY-4 04/09/2024 6:06 AM Page Email Marketer Resident with questions Chart review completed in order to place pre operative orders for anesthesia. EK04/01/24 ECG 12-LEAD 04/02/2024 12:15 PM (Final) Impression Sinus bradycardia Prolonged WV interval extreme right axis RIGHT BUNDLE BRANCH BLOCK Electronically Signed On 04-02-2024 12:15:14 EDT by Monse Katz Signed by: Monse Katz MD on 04/02/2024 12:15 PM ECHO and EF: 02/11/23 TRANSTHORACIC ECHOCARDIOGRAM (TTE) COMPLETE (CONTRAST/BUBBLE/3D PRN) 02/13/2023 4:52 PM (Final) Interpretation Summary Left Ventricle: Left ventricle size is normal. Moderately increased wall thickness. Mass index 2D is 130.1 g/m2. Findings consistent with moderate concentric hypertrophy. Low normal left ventricular systolic function. EF 3D is 52%. Global longitudinal strain is normal. Normal wall motion. Right Ventricle: Right ventricle is mildly dilated. Prominent moderator band noted. Moderately reduced systolic function. Tricuspid Valve: Normal RVSP. RVSP is 31 mmHg. Left Atrium: Left atrium is mildly dilated. LA Vol Index A/L is 35 mL/m2. Aorta: Normal sized sinuses of Valsalva. Mildly dilated annulus. Dilated ascending aorta. Ao ascending diameter is 4.0 cm. No significant valvular abnormalities. Signed by: Chris Madison MD on 02/13/2023 4:52 PM Labs: Lab Results Component Value Date WBC 6.7 04/01/2024 HGB 13.8 04/01/2024 HCT 41.5 04/01/2024 MCV 94.3 04/01/2024 PLT 265 04/01/2024 Lab Results Component Value Date NA 137 04/01/2024 K 3.9 04/01/2024 CL 101 04/01/2024 CO2 28 04/01/2024 BUN 13 04/01/2024 CREATININE 0.90 04/01/2024 GLUCOSE 90 04/01/2024 CALCIUM 9.5 04/01/2024 PROT 7.1 12/28/2023 BILITOT 0.8 12/28/2023 ALKPHOS 82 12/28/2023 AST 32 12/28/2023 ALT 6 12/28/2023 Past Medical History: Past Medical History: Diagnosis Date 2019 novel coronavirus disease (COVID-19) 02/18/2023 Abnormal EKG Allergic 01/15/1992 Anxiety Arthritis 02/13/2023 Emphysema lung (HCC) Enlarged prostate Hyperlipidemia Hypertension REM sleep behavior disorder Sepsis (HCC) Past Surgical History: Past Surgical History: Procedure Laterality Date CYST REMOVAL 1970 Tailbone cyst CYSTOSCOPY 02/12/2023 C&P with stent KIDNEY SURGERY 02/15/2023 Medications Prior to Admission: Prior to Admission medications Medication Sig Start Date End Date Taking? Authorizing Provider carbidopa-levodopa (Sinemet) 25-100 MG tablet Take 1 tablet by mouth 3 times daily. 12/25/23 04/01/24 Breanna Tolliver MD clonazePAM (KlonoPIN) 0.5 MG tablet Take 0.5 tablets (0.25 mg) by mouth Daily as needed for anxiety for up to 24 doses. 03/19/24 Tanmay Elliott DO cyclobenzaprine (Flexeril) 10 MG tablet Take 1 tablet (10 mg) by mouth Nightly as needed for muscle spasms. 01/02/23 04/01/24 Shawanda Costa MD gabapentin (Neurontin) 400 MG capsule Take 5 before bedime 01/15/24 Shawanda Costa MD loratadine (Claritin) 10 MG tablet Take 1 tablet (10 mg) by mouth daily. 11/20/23 Shawanda Costa MD meloxicam (Mobic) 15 MG tablet Take by mouth Daily as needed. 01/31/23 Historical Provider, PARoxetine (Paxil) 10 MG tablet Take 1 tablet (10 mg) by mouth every morning. 03/19/24 05/18/24 Tanmay Elliott DO propranolol (Inderal) 20 MG tablet Take 1 tablet (20 mg) by mouth 2 times daily. 02/20/24 08/18/24 Shawanda Costa MD rasagiline (Azilect) 0.5 MG tablet Take 1 tablet (0.5 mg) by mouth daily. Patient not taking: Reported on 01/24/2024 12/25/23 03/24/24 Breanna Tolliver MD tamsulosin (Flomax) 0.4 MG 24 hr capsule Take 1 capsule (0.4 mg) by mouth daily. 11/13/23 Shawanda Costa MD telmisartan (MIcarDIS) 20 MG tablet Take 1 tablet (20 mg) by mouth daily. 03/12/24 Shawanda Costa MD methylPREDNISolone (Medrol Dospak) 4 MG tablets 04/01/24 Historical Provider, Allergies: Pollen extract and Ropinirole Social History: TOBACCO: reports that he quit smoking about 15 years ago. His smoking use included cigarettes. He started smoking about 39 years ago. He has a 25 pack-year smoking history. He uses smokeless tobacco. ETOH: reports that he does not currently use alcohol. Social History Substance and Sexual Activity Drug Use Never Comment: Caffeine: 1 cup of coffee; occasionally in afternoon Family History: Family History Problem Relation Name Age of Onset Parkinsonism Mother Juhi Rodriguez High Blood Pressure Mother Juhi Rodriguez Depression Mother Juhi Rodriguez Hearing loss Mother Juhi Rodriguez Fainting Mother Juhi Rodriguez Hypertension Mother Juhi Rodriguez Mental illness Mother Juhi Rodriguez Heart disease Father Nery Rodriguez Sr. Bipolar disorder Sister Bailey Rodriguez Mental illness Sister Bailey Rodriguez documented in this encounter [facility] 04-08-2024 Note Formatting of this n ote might be different from the original. Report called. updated. Dinner ordered. [facility] 04-08-2024 Note Formatting of this n ote might be different from the original. Report called. updated. Dinner ordered. [facility] 04-08-2024 Note Patient: Nery luevano Procedure Summary Date: 04/08/24 Room / Location: [facility] OR [address] [place] [address] Operating Room Anesthesia Start: 1403 Anesthesia Stop: 1657 Procedure: ROBOTIC RIGHT RADICAL NEPHRECTOMY (Right: Abdomen) Diagnosis: Other specified disorders of kidney and ureter Surgeons: Conner Quintero MD Responsible Provider: Breanna Fajardo MD Anesthesia Type: general, regional ASA Status: 3 Anesthesia Type: general, regional Vitals Value Taken Time BP 117/61 04/08/24 1654 Temp 97 04/08/24 1659 Pulse 52 04/08/24 1659 Resp 14 04/08/24 1659 SpO2 97 % 04/08/24 1659 Vitals shown include unfiled device data. Anesthesia Post Evaluation Patient location during evaluation: PACU Patient participation: complete - patient participated Level of consciousness: awake and alert Pain management: satisfactory to patient Airway patency: patent Dental Injury: no Cardiovascular status: acceptable, blood pressure returned to baseline and hemodynamically stable Respiratory status: acceptable and spontaneous ventilation Hydration status: euvolemic Nausea/Vomiting: controlled No notable events documented. Patient can be discharged once all PACU criteria has been met. [facility] 04-08-2024 Note Patient: Nery luevano Procedure Summary Date: 04/08/24 Room / Location: [address] Operating Room Anesthesia Start: 3 Anesthesia Stop: 1657 Procedure: ROBOTIC RIGHT RADICAL NEPHRECTOMY (Right: Abdomen) Diagnosis: Other specified disorders of kidney and ureter Surgeons: Conner Quintero MD Responsible Provider: Breanna Fajardo MD Anesthesia Type: general, regional ASA Status: 3 Anesthesia Type: general, regional Vitals Value Taken Time BP 117/61 04/08/24 1654 Temp 97 04/08/24 1659 Pulse 51 04/08/24 1658 Resp 14 04/08/24 1659 SpO2 97 % 04/08/24 1658 Vitals shown include unfiled device data. Anesthesia Post Evaluation Patient location during evaluation: PACU Patient participation: complete - patient participated Level of consciousness: awake and alert and lethargic Pain score: 0 Pain management: adequate Multimodal analgesia pain management approach Airway patency: patent Two or more strategies used to mitigate risk of obstructive sleep apnea Cardiovascular status: acceptable and hemodynamically stable Respiratory status: acceptable Hydration status: acceptable No notable events documented. MIPS #[id number] PONV Patient received an inhalational anesthetic (4554F) Patient does not exhibit three or more risk factors for PONV (X0430)) MIPS # [id number] Perioperative Temperature Management Anesthesia time was 60 minutes or longer (4255F) Anesthesai administered was General (inhalational or TIVA) or Neuraxial block (X0424) At least one body temperature greater than 95.8F/35.5C achieved within the 30 mins immediately prior to or the 15 minutes immediately following anesthesia end time (G9771) MIPS #477 Multimodal Pain Management Not emergent case Patient was administered multimodal pain management (two or more drugs and/or interventions excluding systemic opioids) in the periopeartive period occurring at some time between 6 hours prior to anesthesia start time until discharged from PACU (G2148) MIPS #404 Anesthesiology Smoking Abstinence The patient is not a current smoker (e.g. cigarette, cigar, pipe, e-cigarette/vaping/marijuana) If no stop here (XX404) I completed my handoff to the receiving clinician during which we: 1. Identified the patient 2. Identified the responsible provider 3. Reviewed the pertinent medical history 4. Discussed the surgical course 5. Reviewed intra-op anesthesia management and issues during anesthesia 6. Set expectations for post-procedure period 7. Allowed opportunity for questions and acknowledgement of understanding. [facility] 04-08-2024 Note Airway Date/Time: 04/08/2024 2:08 PM Urgency: scheduled Airway not difficult General Information and Staff Patient location during procedure: Procedural Resident/QUALITY PROCESS ENGINEER: Lam Ordonez CRNA Performed: QUALITY PROCESS ENGINEER Indications and Patient Condition Indications for airway management: anesthesia Sedation level: Asleep Preoxygenated: yes Patient position: sniffing MILS maintained throughout Mask difficulty assessment: 1 - vent by mask Final Airway Details Final airway type: endotracheal airway Successful airway: ETT Cuffed: yes Successful intubation technique: direct laryngoscopy Endotracheal tube insertion site: oral Blade: Kong Blade size: #3 ETT size (mm): 8.0 Cormack-Lehane Classification: grade IIa - partial view of glottis Placement verified by: chest auscultation and capnometry Measured from: lips ETT to lips (cm): 22 Number of attempts at approach: 1 Ventilation between attempts: none Number of other approaches attempted: 0 [facility] 04-08-2024 Note Peripheral Block Time Out: 04/08/2024 2:09 PM Start time: 04/08/2024 2:09 PM End time: 04/08/2024 2:15 PM Reason for block: at surgeon's request and post-op pain management Staffing Performed: LEFTY Resident/QUALITY PROCESS ENGINEER: Baldomero Alves APRN - LEFTY Preanesthetic Checklist Completed: patient identified, IV checked, site marked, risks and benefits discussed, surgical consent and timeout performed Region: Truncal Primary: Quadratus Lumborum (Right side) Secondary: Upper rectus (bilateral) Peripheral Block Prep: ChloraPrep Patient monitoring: heart rate, center consultant, continuous pulse ox and continuous capnometry O2: ETT/LMA Laterality: bilateral Injection technique: single-shot Guidance: ultrasound guided -image retained in chart, tip of the needle identified by ultraound during injection. Needle Needle: 21G X 110 mm Additional Notes 04/08/2024 2:09 PM Assessment Injection assessment: negative aspiration for heme, no paresthesia on injection, incremental injection, local visualized surrounding nerve on ultrasound and transient paresthesias Heart rate change: no Slow fractionated injection: yes Required Documentation: Relevant anatomy identified (Nerves, Vessels, Muscles), Negative for blood on aspiration, Local anesthetic injected incrementally with intermittent aspiration every 5 mL, Normal resistance with injection, Local anesthetic spread visualized around nerves or plane., No EKG changes noted and No symptoms of toxicityMedications wkaYPNLHqfvxi-gosnqqbehud-aweyvyoz ine (TAP) syringe - Injection 60 mL - 04/08/2024 2:09:00 PM [facility] 04-08-2024 Note Formatting of this n ote might be different from the original. DOS: April 08, 2024 Pre-op Diagnosis: rightMALIGNANT NEOPLASM OF KIDNEY, EXCEPT PELVIS Post-op Diagnosis:right MALIGNANT NEOPLASM OF KIDNEY, EXCEPT PELVIS Operation: right RADICAL NEPHRECTOMY (laparoscopic with robotic assistance) Surgeon : Conner Quintero M.D. Powerhouse Laborer: Reji canales Anesthesia: General Special Consideration: Modifier Indications:Nery Rodriguez is a 73 y.o. year-old male who was referred to ri for treatment of a right sided renal mass. A CT scan revealed central, solid renal mass and large renal cyst. The patient was recommended to undergo nephrectomy with da Mae surgical robot. All risks, benefits and alternatives were discussed, and all questions were answered prior to proceeding. Individual considerations: Mass Size: 2.7cm Mass locatio and side: right inter-pole Vessel anomaly: single artery, double vein Intraoperative ultrasound: none EBL: 15 ml Procedure : Informed consent was obtained. Patient was given perioperative antibiotics and DVT prophylaxis in preop holding area. General anesthesia was administered. A Kamara catheter was placed. A nasogastrictube was placed by anesthesia. Patient was placed in the flank position . All the pressure points were padded and patient secured to the table with adhesive tapes. STEP 1; PORT PLACEMENT Pneumoperitoneum of 12 mmHg was created by placing a Veress needle through in hypochondrium. Using a visiport a 12-mm cannula the placed lateral to the mid calvicular line at the level midway between umbilicus and costal margin. A 30 binocular telescope, looking upward, was then placed through the camera port. All other ports were placed under direct vision. Three 8 mm robotic ports one onright side and two on left side of camera port, one 12 mm was placed just lateral to umbilicus and one 5 mm right port was placed at midline superior to umbilicus for liver retractor. After placing the ports the pneumoperitoneum pressure was decreased to 10 mmHg. The surgical cart was then docked to the ports. STEP 2; Exposure of kidney The peritoneum was incised from the lower pole of kidney to Hepatic flexure lateral to the white line of Toldt. The colon was then reflected medially to expose the ureter and gonadal vessels . Care was taken not to dissect in and lateral to fascia of Gerota. A plane of dissection was created between the ureter and the gonadal vein and ureter was followed superiorly to the renal hilum. The second part of duodenum was carefully reflected medially to expose the renal hilum. OPERATIVE FINDING 3 separate renal veins STEP 3; HILAR DISSECTION The renal hilum was carefully dissected to isolate the renal vessels. Single renal vein and single renal artery were found and isolated and skeletenized free of hilar fat. There was a second smaller renal vein, which was divided between hemolock clip and bipolar The renal artery was divided using 35mm vascular load da mae stapler. The renal vein was then divided in a similar fashion. STEP 4: Renal Dissection Next the upper pole attachments were divided using electrocautery. Bipolar was used for hemostasis. The adrenal did appear uninvolved and was spared. The lateral and infererior attachments were divided. The ureter was transected between hemolock clips. The specimen was now free. STEP 6; SPECIMEN RETRIEVAL The specimen was placed in a 15 endocatch bag. It was removed from the periumbilical port, after lengthening the incision proximal and distal. . The incision was closed using 0 looped PDS. . The fascia at 12 mm ports was closed with 0 VIcryl. Skin was closed by subcuticular 4-0 Monocryl. Patient tolerated the procedure well. [facility] 04-08-2024 Note Formatting of this n ote might be different from the original. DOS: April 08, 2024 Pre-op Diagnosis: rightMALIGNANT NEOPLASM OF KIDNEY, EXCEPT PELVIS Post-op Diagnosis:right MALIGNANT NEOPLASM OF KIDNEY, EXCEPT PELVIS Operation: right RADICAL NEPHRECTOMY (laparoscopic with robotic assistance) Surgeon : Conner Quintero M.D. Powerhouse Laborer: Reji canales Anesthesia: General Special Consideration: Modifier Indications:Nery Rodriguez is a 73 y.o. year-old male who was referred to ri for treatment of a right sided renal mass. A CT scan revealed central, solid renal mass and large renal cyst. The patient was recommended to undergo nephrectomy with da Mae surgical robot. All risks, benefits and alternatives were discussed, and all questions were answered prior to proceeding. Individual considerations: Mass Size: 2.7cm Mass locatio and side: right inter-pole Vessel anomaly: single artery, double vein Intraoperative ultrasound: none EBL: 15 ml Procedure : Informed consent was obtained. Patient was given perioperative antibiotics and DVT prophylaxis in preop holding area. General anesthesia was administered. A Kamara catheter was placed. A nasogastrictube was placed by anesthesia. Patient was placed in the flank position . All the pressure points were padded and patient secured to the table with adhesive tapes. STEP 1; PORT PLACEMENT Pneumoperitoneum of 12 mmHg was created by placing a Veress needle through in hypochondrium. Using a visiport a 12-mm cannula the placed lateral to the mid calvicular line at the level midway between umbilicus and costal margin. A 30 binocular telescope, looking upward, was then placed through the camera port. All other ports were placed under direct vision. Three 8 mm robotic ports one onright side and two on left side of camera port, one 12 mm was placed just lateral to umbilicus and one 5 mm right port was placed at midline superior to umbilicus for liver retractor. After placing the ports the pneumoperitoneum pressure was decreased to 10 mmHg. The surgical cart was then docked to the ports. STEP 2; Exposure of kidney The peritoneum was incised from the lower pole of kidney to Hepatic flexure lateral to the white line of Toldt. The colon was then reflected medially to expose the ureter and gonadal vessels . Care was taken not to dissect in and lateral to fascia of Gerota. A plane of dissection was created between the ureter and the gonadal vein and ureter was followed superiorly to the renal hilum. The second part of duodenum was carefully reflected medially to expose the renal hilum. OPERATIVE FINDING 3 separate renal veins STEP 3; HILAR DISSECTION The renal hilum was carefully dissected to isolate the renal vessels. Single renal vein and single renal artery were found and isolated and skeletenized free of hilar fat. There was a second smaller renal vein, which was divided between hemolock clip and bipolar The renal artery was divided using 35mm vascular load da mae stapler. The renal vein was then divided in a similar fashion. STEP 4: Renal Dissection Next the upper pole attachments were divided using electrocautery. Bipolar was used for hemostasis. The adrenal did appear uninvolved and was spared. The lateral and infererior attachments were divided. The ureter was transected between hemolock clips. The specimen was now free. STEP 6; SPECIMEN RETRIEVAL The specimen was placed in a 15 endocatch bag. It was removed from the periumbilical port, after lengthening the incision proximal and distal. . The incision was closed using 0 looped PDS. . The fascia at 12 mm ports was closed with 0 VIcryl. Skin was closed by subcuticular 4-0 Monocryl. Patient tolerated the procedure well. [facility] 04-08-2024 History and physical note Interval History and Physical I have interviewed and examined the patient and reviewed the recent History and Physical. There have been no changes to the recent H&P documentation. The H&P resides on a progress note on this patient's chart. The patient understands the planned operation and its associated risks and benefits and agrees to proceed. The surgical consent form has been signed. BP 125/79 Pulse 55 Temp 36.2 C (97.1 F) (Temporal) Resp 16 Ht 6' 1 (1.854 m) Wt 220 lb (99.8 kg) SpO2 98% BMI 29.03 kg/m [facility] 04-08-2024 Note Interval History and Physical I have interviewed and examined the patient and reviewed the recent History and Physical. There have been no changes to the recent H&P documentation. The H&P resides on a progress note on this patient's chart. The patient understands the planned operation and its associated risks and benefits and agrees to proceed. The surgical consent form has been signed. BP 125/79 Pulse 55 Temp 36.2 ?C (97.1 ?F) (Temporal) Resp 16 Ht 6' 1 (1.854 m) Wt 220 lb (99.8 kg) SpO2 98% BMI 29.03 kg/m? [facility] 04-08-2024 History and physical note Interval History and Physical I have interviewed and examined the patient and reviewed the recent History and Physical. There have been no changes to the recent H&P documentation. The H&P resides on a progress note on this patient's chart. The patient understands the planned operation and its associated risks and benefits and agrees to proceed. The surgical consent form has been signed. BP 125/79 Pulse 55 Temp 36.2 C (97.1 F) (Temporal) Resp 16 Ht 6' 1 (1.854 m) Wt 220 lb (99.8 kg) SpO2 98% BMI 29.03 kg/m documented in this encounter [facility] 04-01-2024 Note Patient: Nery luevano Procedure Information Date/Time: 04/08/24 1400 Procedure: ROBOTIC RIGHT RADICAL NEPHRECTOMY (Right: Abdomen) - 180 MIN Location: [facility] OR [address] [place] [address] Operating Room Surgeons: Conner Quintero MD Relevant Problems Cardio (+) Ascending aortic aneurysm (HCC) (+) Essential hypertension (+) RBBB (right bundle branch block with left anterior fascicular block) /Renal (+) Hepatic cyst (+) Renal cyst, right Neuro/Psych (+) MDD (major depressive disorder) Pulmonary (+) Pulmonary emphysema, unspecified emphysema type (HCC) Past Medical History: Past Medical History: 02/18/2023: 2019 novel coronavirus disease (COVID-19) No date: Abnormal EKG 01/15/1992: Allergic No date: Anxiety 02/13/2023: Arthritis No date: Emphysema lung (HCC) No date: Enlarged prostate No date: Hyperlipidemia No date: Hypertension No date: REM sleep behavior disorder No date: Sepsis (HCC) Past Surgical History: Past Surgical History: 1970: CYST REMOVAL Comment: Tailbone cyst 02/12/2023: CYSTOSCOPY Comment: C&P with stent 02/15/2023: KIDNEY SURGERY Social History: TOBACCO: reports that he quit smoking about 15 years ago. His smoking use included cigarettes. He started smoking about 39 years ago. He has a 25 pack-year smoking history. He uses smokeless tobacco. ETOH: reports that he does not currently use alcohol. Social History Substance and Sexual Activity Drug Use Never Comment: Caffeine: 1 cup of coffee; occasionally in afternoon Family History: Family History Problem Relation Name Age of Onset Parkinsonism Mother Juhi Rordiguez High Blood Pressure Mother Juhi Rodriguez Depression Mother Juhi Rodriguez Hearing loss Mother Juhi Rodriguez Fainting Mother Juhi Rodriguez Hypertension Mother Juhi Rodriguez Mental illness Mother Juhi Rodriguez Heart disease Father Nery Rodriguez Sr. Bipolar disorder Sister Bailey Rodriguez Mental illness Sister Bailey Rodriguez Screening: unknown Clinical information reviewed: Tobacco Allergies Meds Med Hx Surg Hx Physical Exam Airway Mallampati: III TM distance: >3 FB Neck ROM: full Mouth Open: normalendotracheal tube not in place Cardiovascular Dental (+) Upper Dentures, Lower Dentures Pulmonary Abdominal Anesthesia Plan patient is NPO appropriate Any family history or previous problems with anesthesia no ASA 3 general and regional Any family history or previous problems with anesthesia no(Per regional team) The patient is not a current smoker. Patient was not previously instructed to abstain from smoking on day of procedure. Anesthetic plan and risks discussed with patient and spouse. WAYNE Screening Patient had a postive sleep screen but declines a sleep study Labs: Lab Results Component Value Date WBC 4.7 12/28/2023 HGB 13.7 12/28/2023 HCT 39.7 (L) 12/28/2023 MCV 93.2 12/28/2023 PLT 256 12/28/2023 Lab Results Component Value Date NA 139 12/28/2023 K 4.0 12/28/2023 CL 106 12/28/2023 CO2 26 12/28/2023 BUN 12 12/28/2023 CREATININE 1.03 12/28/2023 GLUCOSE 98 12/28/2023 CALCIUM 9.4 12/28/2023 PROT 7.1 12/28/2023 ALKPHOS 82 12/28/2023 AST 32 12/28/2023 ALT 6 12/28/2023 EGFR 77.2 12/28/2023 Echo 02/13/2023 Left Ventricle: Left ventricle size is normal. Moderately increased wall thickness. Mass index 2D is 130.1 g/m2. Findings consistent with moderate concentric hypertrophy. Low normal left ventricular systolic function. EF 3D is 52%. Global longitudinal strain is normal. Normal wall motion. Right Ventricle: Right ventricle is mildly dilated. Prominent moderator band noted. Moderately reduced systolic function. Tricuspid Valve: Normal RVSP. RVSP is 31 mmHg. Left Atrium: Left atrium is mildly dilated. LA Vol Index A/L is 35 mL/m2. Aorta: Normal sized sinuses of Valsalva. Mildly dilated annulus. Dilated ascending aorta. Ao ascending diameter is 4.0 cm. No significant valvular abnormalities. ECG 04/01/2024 IMPRESSION: Sinus bradycardia Prolonged W[place] interval Nonspecific intraventricular conduction delay [facility] 04-01-2024 Note Comprehensive Pre Mariano rgical History and Physical ? Name: Nery Rodriguez : 1950 (Age-73 y.o.) Date of Service: Pt seen/examined on 04/01/2024 Procedure Information Date/Time: 04/08/24 1400 Procedure: ROBOTIC RIGHT RADICAL NEPHRECTOMY (Right: Abdomen) - 180 MIN Location: [facility] OR [address] [place] [address] Operating Room Surgeons: Conner Quintero MD Chief Complaint: Other specified disorders of kidney and ureter [N28.89] ASSESSMENT/PLAN: Patient is considered low/intermediate risk for this intermediate level 3 risk procedure/surgery () with no reducible risk factors. Based on the above evaluation, the benefits of the planned procedure likely exceed the risks. The patient is medically optimized to proceed with the planned procedure without any further cardiopulmonary testing. 1) Other specified disorders of kidney and ureter [N28.89] - MEDS: Flomax - Managed per surgery - Orders per PAT Protocol: T&S, CBC, BMP, EKG - METS >4 2) Depression/Anxiety/Panic attacks - MEDS: Klonopin, Paxil - feels controlled on medication - Yes, - Managed by [facility] - last OV 03/19/2024 - Patient may benefit from antianxiety medication DOS 3) Parkinson's disease without dyskinesia or fluctuating manifestations - MEDS: carbidopa-levodopa - Managed by Dr. Tolliver ([facility]) - last OV 12/25/2023 4) HTN (hypertension) - MEDS: propanolol, telmisartan BP Readings from Last 3 Encounters: 04/01/24 122/70 01/23/24 120/70 12/26/23 126/74 - patient denies chest pain, SOB, dizziness, blurred vision -encouraged lifestyle modification - Managed by Dr. Costa (PCP) - last OV 02/2024 - ordered EKG and BMP in PAT 5) REM sleep behavior disorder - MEDS: gabapentin - Managed by Dr. Tolliver ([facility]) - last OV 12/25/2023 6) Former Smoker/THC - Total pack years: 25 - Quit about 15 years ago - uses Zyn - nicotine pouches (mucosal) - Cessation is encouraged - Patient counseled to avoid smoking/nicotine or THC products 24 hours prior to scheduled procedure - ordered EKG in PAT 7) Chronic back pain - MEDS: Mobic - Formally managed by pain management Visit Type: Pre-Admission Testing Visit Labs Ordered: YES - PER [facility] PROTOCOL Sleep Referral Ordered: Patient had a postive sleep screen but declines a sleep study Total time spent (which include face to face and non face to face encounters) : 30 minutes Toxic drug monitoring/narrow therapeutic index drug monitoring : # Drug name : propanolol, telmisartan # Route administered : PO # Method of monitoring : BMP PAT Protocol referenced includes: 1. Anesthesia Lab Protocol Orders 2. Perioperative Cardiovascular Risk Assessment 3. Anesthesia Assessment 4. Pain Assessment and Acute Pain Service Consult (if appropriate) 5. Medical Clearance/Consult from Internal Medicine (IMS) 6. Shower/Wash Order (for designated surgeries) 7. WAYNE Screen and Sleep Clinic Referral (if appropriate) CURRENT NARCOTIC USE: No Do you have a history of chronic opioid use? No Allergies: Pollen extract and Ropinirole If patient has opioid allergy, is it okay to take Acetaminophen: Yes History Of Present Illness: 73 y.o. male who we are asked to see/evaluate by Conner Quintero MD for pre-operative evaluation prior to ROBOTIC RIGHT RADICAL NEPHRECTOMY (Right: Abdomen) - 180 MIN ? From last office visit with Conner Quintero MD on 02/28/2024: This patient is a 73 y.o. male who presents for telehealth visit regarding right renal mass. Quality: tumor. Location: central right kidney. Severity: enlarging. Timing: gradual. Duration: months. Context: interval growth of solid renal mass. Modifying factors parkinsons diseass. Associated signs and symptoms: none. I had a long discussion with the patient today regarding this diagnosis of renal mass. I explained that the very likely diagnosis of this renal mass is cancer. I discussed the treatment options for this renal mass which include observation, cryotherapy, RFA, partial and radical nephrectomy. The patient does not feel comfortable with observation at this time given the possibility that this could very well be cancerous. I explained that the size and location of the mass are not optimal for cryotherapy or RFA. I explained that these are not the gold standard treatments for patients that are considered surgical candidates. I explained partial nephrectomy. I explained the process of open and laparoscopic/ robotic parital nephrectomy. The size and location of the mass and the contralateral renal function help to determine if this is an option. I explained that even if a nephron sparing surgical approach is chosen, there is always a possibilty of converting to a radical nephrectomy if the sittuation should warrent this. The size and location of this renal mass is not ammen (more content not included)... [facility] 04-01-2024 Note Comprehensive Pre Mariano rgical History and Physical ? Name: Nery BILLINGSN: [id number] : 1950 (Age-73 y.o.) Date of Service: Pt seen/examined on 04/01/2024 Procedure Information Date/Time: 04/08/24 1400 Procedure: ROBOTIC RIGHT RADICAL NEPHRECTOMY (Right: Abdomen) - 180 MIN Location: [facility] OR [address] [place] [address] Operating Room Surgeons: Conner Quintero MD Chief Complaint: Other specified disorders of kidney and ureter [N28.89] ASSESSMENT/PLAN: Patient is considered low/intermediate risk for this intermediate level 3 risk procedure/surgery () with no reducible risk factors. Based on the above evaluation, the benefits of the planned procedure likely exceed the risks. The patient is medically optimized to proceed with the planned procedure without any further cardiopulmonary testing. 1) Other specified disorders of kidney and ureter [N28.89] - MEDS: Flomax - Managed per surgery - Orders per PAT Protocol: T&S, CBC, BMP, EKG - METS >4 2) Depression/Anxiety/Panic attacks - MEDS: Klonopin, Paxil - feels controlled on medication - Yes, - Managed by [facility] - last OV 03/19/2024 - Patient may benefit from antianxiety medication DOS 3) Parkinson's disease without dyskinesia or fluctuating manifestations - MEDS: carbidopa-levodopa - Managed by Dr. Tolliver ([facility]) - last OV 12/25/2023 4) HTN (hypertension) - MEDS: propanolol, telmisartan BP Readings from Last 3 Encounters: 04/01/24 122/70 01/23/24 120/70 12/26/23 126/74 - patient denies chest pain, SOB, dizziness, blurred vision -encouraged lifestyle modification - Managed by Dr. Costa (PCP) - last OV 02/2024 - ordered EKG and BMP in PAT 5) REM sleep behavior disorder - MEDS: gabapentin - Managed by Dr. Tolliver ([facility]) - last OV 12/25/2023 6) Former Smoker/THC - Total pack years: 25 - Quit about 15 years ago - uses Zyn - nicotine pouches (mucosal) - Cessation is encouraged - Patient counseled to avoid smoking/nicotine or THC products 24 hours prior to scheduled procedure - ordered EKG in PAT 7) Chronic back pain - MEDS: Mobic - Formally managed by pain management Visit Type: Pre-Admission Testing Visit Labs Ordered: YES - PER PAT PROTOCOL Sleep Referral Ordered: Patient had a postive sleep screen but declines a sleep study Total time spent (which include face to face and non face to face encounters) : 30 minutes Toxic drug monitoring/narrow therapeutic index drug monitoring : # Drug name : propanolol, telmisartan # Route administered : PO # Method of monitoring : BMP PAT Protocol referenced includes: 1. Anesthesia Lab Protocol Orders 2. Perioperative Cardiovascular Risk Assessment 3. Anesthesia Assessment 4. Pain Assessment and Acute Pain Service Consult (if appropriate) 5. Medical Clearance/Consult from Internal Medicine (IMS) 6. Shower/Wash Order (for designated surgeries) 7. WAYNE Screen and Sleep Clinic Referral (if appropriate) CURRENT NARCOTIC USE: No Do you have a history of chronic opioid use? No Allergies: Pollen extract and Ropinirole If patient has opioid allergy, is it okay to take Acetaminophen: Yes History Of Present Illness: 73 y.o. male who we are asked to see/evaluate by Conner Quintero MD for pre-operative evaluation prior to ROBOTIC RIGHT RADICAL NEPHRECTOMY (Right: Abdomen) - 180 MIN ? From last office visit with Conner Quintero MD on 02/28/2024: This patient is a 73 y.o. male who presents for telehealth visit regarding right renal mass. Quality: tumor. Location: central right kidney. Severity: enlarging. Timing: gradual. Duration: months. Context: interval growth of solid renal mass. Modifying factors parkinsons diseass. Associated signs and symptoms: none. I had a long discussion with the patient today regarding this diagnosis of renal mass. I explained that the very likely diagnosis of this renal mass is cancer. I discussed the treatment options for this renal mass which include observation, cryotherapy, RFA, partial and radical nephrectomy. The patient does not feel comfortable with observation at this time given the possibility that this could very well be cancerous. I explained that the size and location of the mass are not optimal for cryotherapy or RFA. I explained that these are not the gold standard treatments for patients that are considered surgical candidates. I explained partial nephrectomy. I explained the process of open and laparoscopic/ robotic parital nephrectomy. The size and location of the mass and the contralateral renal function help to determine if this is an option. I explained that even if a nephron sparing surgical approach is chosen, there is always a possibilty of converting to a radical nephrectomy if the sittuation should warrent this. The size and location of this renal mass is not ammen (more content not included)... [facility] 03-12-2024 Telephone encounter Note Recent Visits Date Type Provider Dept 01/23/24 Clinical Support SCHEDULE, [facility] Visit Shawanda Costa MD [facility] 08/29/23 Office Visit Shawanda Costa MD [facility] 07/07/23 Office Visit Shawanda Costa MD [facility] Showing recent visits within past 365 days and meeting all other requirements Future Appointments Date Type Provider Dept 06/06/24 Appointment Shawanda Costa MD [facility] Showing future appointments within next 90 days and meeting all other requirements Requested Prescriptions Pending Prescriptions Disp Refills telmisartan (MIcarDIS) 20 MG tablet 90 tablet 1 Sig: Take 1 tablet (20 mg) by mouth daily. Provider: Shawanda Costa MD Verified pharmacy: yes Verified day(s) supplied: yes Verified refill(s) needed (previous prescription showing no refills in chart): Yes Have you received any controlled medications from any other provider? N/A Overdue for visit: No If yes - patient scheduled? Yes Most recent labs completed in chart? N/A [facility] 03-12-2024 Miscellaneous Notes Recent Visits Date Type Provider Dept 01/23/24 Clinical Support SCHEDULE, MG WR FP [facility] 12/26/23 Office Visit Shawanda Costa MD [facility] 08/29/23 Office Visit Shawanda Costa MD [facility] 07/07/23 Office Visit Shawanda Costa MD [facility] Showing recent visits within past 365 days and meeting all other requirements Future Appointments Date Type Provider Dept 06/06/24 Appointment Shawanda Costa MD [facility] Showing future appointments within next 90 days and meeting all other requirements Requested Prescriptions Pending Prescriptions Disp Refills telmisartan (MIcarDIS) 20 MG tablet 90 tablet 1 Sig: Take 1 tablet (20 mg) by mouth daily. Provider: Shawanda Costa MD Verified pharmacy: yes Verified day(s) supplied: yes Verified refill(s) needed (previous prescription showing no refills in chart): Yes Have you received any controlled medications from any other provider? N/A Overdue for visit: No If yes - patient scheduled? Yes Most recent labs completed in chart? N/A documented in this encounter [facility] 03-04-2024 Telephone encounter Note LVM and sent Deeplink message with surgery d/t/l and instructions [facility] 03-04-2024 Miscellaneous Notes LVM and sent Deeplink message with surgery d/t/l and instructions Please call Pt with d/t/l and instructions for PAT/Surgery Doctor: Leon PAT (arrive 15 min early): 04/01/24 at 2:30pm at [facility] PAT instructions: Please bring photo ID, insurance card, list of all current medications Surgery: 12/09/23 at 2:00pm at [facility] Surgery arrival time: 12:00pm Surgery instructions: Nothing to eat after midnight. Can have clear liquids black coffee (no cream or dairy), tea, water, Sprite, apple juice, Gatorade (no reds or purples) up until arrival time. Medication instructions: Hold Aspirin, fish oil and over the counter vitamins 3 days prior to surgery Post op follow-up: ----- Message from Conner Quintero MD sent at 02/28/2024 1:30 PM EDT ----- Robotic right radical nephrectomy documented in this encounter [facility] 03-04-2024 Telephone encounter Note Please call Pt with d/t/l and instructions for PAT/Surgery Doctor: Leon CUTLER (arrive 15 min early): 04/01/24 at 2:30pm at [facility] instructions: Please bring photo ID, insurance card, list of all current medications Surgery: 12/09/23 at 2:00pm at [facility] Surgery arrival time: 12:00pm Surgery instructions: Nothing to eat after midnight. Can have clear liquids black coffee (no cream or dairy), tea, water, Sprite, apple juice, Gatorade (no reds or purples) up until arrival time. Medication instructions: Hold Aspirin, fish oil and over the counter vitamins 3 days prior to surgery Post op follow-up: [facility] 03-04-2024 Telephone encounter Note ----- Message from Conner Quintero MD sent at 02/28/2024 1:30 PM EDT ----- Robotic right radical nephrectomy [facility] 02-28-2024 History of Present illness Narrative Images from the original note were not included. Conner Quintero MD 08/24/2022 at 9:48 AM Telemedicine visit PATIENT NAME: Nery Rodriguez DATE OF : 1950 TODAY'S DATE: 02/28/24 CHIEF COMPLAINT renal mass Their identity was verified by patient Those on the call: patient, Subjective: This patient is a 73 y.o. male who presents for telehealth visit regarding right renal mass. Quality: tumor Location: central right kidney Severity: enlarging Timing: gradual Duration: months Context: interval growth of solid renal mass Modifying factors parkinsons diseass. Associated signs and symptoms: none Review of Systems: Review of Systems Constitutional: Negative for activity change. Gastrointestinal: Negative for abdominal distention and abdominal pain. Genitourinary: Negative for difficulty urinating, frequency and hematuria. Physical Exam Constitutional: General: Patient is awake. Appearance: Normal appearance. Patient is well-developed. HENT: Head: Normocephalic and atraumatic. Eyes: General: Lids are normal. Vision grossly intact. Right eye: No discharge. Left eye: No discharge. Neck: Musculoskeletal: Normal range of motion and neck supple. Neurological: Mental Status: Patient is alert and oriented to person, place, and time. Mental status is at baseline. Cranial Nerves: Cranial nerves are intact. Skin: Coloration: Skin is not jaundiced or pale. Findings: No abrasion or acne. Psychiatric: Attention and Perception: Attention and perception normal. Mood and Affect: Mood normal. Speech: Speech normal. Behavior: Behavior normal. Behavior is cooperative. Thought Content: Thought content normal. Cognition and Memory: Cognition normal. Judgment: Judgment normal. Past Medical History: Past Medical History: Diagnosis Date 2019 novel coronavirus disease (COVID-19) 02/18/2023 Abnormal EKG Allergic 01/15/1992 Anxiety Arthritis 02/13/2023 Enlarged prostate Hyperlipidemia Hypertension REM sleep behavior disorder Sepsis (HCC) Past Surgical History: Past Surgical History: Procedure Laterality Date CYST REMOVAL 1970 Tailbone cyst CYSTOSCOPY 02/12/2023 C&P with stent KIDNEY SURGERY 02/15/2023 Medications Current Outpatient Medications on File Prior to Visit Medication Sig Dispense Refill carbidopa-levodopa (Sinemet) 25-100 MG tablet Take 1 tablet by mouth 3 times daily. 270 tablet 1 clonazePAM (KlonoPIN) 0.5 MG tablet Take 0.5 tablets (0.25 mg) by mouth Daily as needed for anxiety. 8 tablet 0 cyclobenzaprine (Flexeril) 10 MG tablet Take 1 tablet (10 mg) by mouth Nightly as needed for muscle spasms. 30 tablet 1 gabapentin (Neurontin) 400 MG capsule Take 5 before bedime 150 capsule 3 loratadine (Claritin) 10 MG tablet Take 1 tablet (10 mg) by mouth daily. 90 tablet 1 meloxicam (Mobic) 15 MG tablet Take by mouth Daily as needed. methylPREDNISolone (Medrol Dospak) 4 MG tablets propranolol (Inderal) 20 MG tablet Take 1 tablet (20 mg) by mouth 2 times daily. 180 tablet 1 rasagiline (Azilect) 0.5 MG tablet Take 1 tablet (0.5 mg) by mouth daily. (Patient not taking: Reported on 01/24/2024) 90 tablet 1 tamsulosin (Flomax) 0.4 MG 24 hr capsule Take 1 capsule (0.4 mg) by mouth daily. 90 capsule 1 telmisartan (MIcarDIS) 20 MG tablet Take 1 tablet (20 mg) by mouth daily. 90 tablet 1 No current facility-administered medications on file prior to visit. Labs: No results found for: PSAFREE, PSAFREEPCT No results for input(s): PSAFREE, PSAFREEPCT in the last 72 hours. No results found for: TESTOSTERONE Lab Results No results found for: LABURIN Radiology Review: Patient Name: NERY RODRIGUEZ : 1950 Exam Date/Time: 07/21/2023 12:09 Procedure: MR ABDOMEN W AND WO CONTRAST Ordering Provider: QUINTERO JOSHUA Reason For Exam: Renal mass/cyst, indeterminate MRI ABDOMEN WITHOUT AND WITH CONTRAST (WITH ATTENTION TO THE KIDNEYS): CLINICAL INDICATION: Focal renal mass. TECHNIQUE: Multiplanar multisequence MR images were performed through the abdomen, including diffusion-weighted images and dynamic contrast-enhanced T1 sequence during injection of 10 mL of Gadavist contrast. Comparison: 07/18/2022, 11/15/2021 FINDINGS: Kidneys: Symmetric size and enhancement. No hydronephrosis. Renal Lesions: Simple right renal cysts, not requiring imaging follow-up. There is redemonstration of an enhancing lesion in the interpolar right kidney measuring approximately 2.0 x 2.0 cm, previously 1.7 x 1.4 cm. The renal vein is patent. Lymphadenopathy:None Liver: The liver is normal in size and contour. There is no drop in signal on in-phase or opposed-phase images to suggest fat or iron deposition. Numerous simple cysts are present throughout both hepatic lobes. Two septated cysts are again present in the left hepatic lobe Biliary tree: Normal gallbladder. No biliary dilatation. Spleen: Normal Adrenals:Normal Pancreas: Homogeneous enhancement without mass or peripancreatic fluid. No pancreatic duct dilation. Aorta: Normal caliber Visualized Osseous structures: Normal Other: Diverticulosis in the visualized colon. IMPRESSION: 1. Enhancing right renal lesion concerning for neoplasm, slightly increased in size dating back to 11/15/2021. 2. Multiple liver cysts, some of which contain thin septations. 3. Diverticulosis. Report Dictated on Electronically Signed By: Daryl Monzon MD Electronically Signed Date/Time: 07/23/2023 6:50 PM EDT Patient was identified and seen today via Telehealth by agreement and consent. I used the following Telehealth technology: Audio and video capabilities. Patient location: Patient Location: Home. This patient encounter is appropriate and reasonable under the circumstances: transportation issues . The patient has been advised of the potential risks and limitations of this mode of treatment (including but not limited to the absence of in-person examination) and has agreed to be treated in a remote fashion in spite of them. Any and all of the patient's/patient's family's questions on this issue have been answered and I have made no promises or guarantees to the patient. The patient has also been advised to contact this office for worsening conditions or problems, and seek emergency medical treatment and/or call 911 if the patient deems either necessary. The patient stated that they are currently in the [facility]. If the patient is a minor, permission has been obtained by the parent or guardian for the patient to receive medical care at this visit. I had a long discussion with the patient today regarding this diagnosis of renal mass. I explained that the very likely diagnosis of this renal mass is cancer. I discussed the treatment options for this renal mass which include observation, cryotherapy, RFA, partial and radical nephrectomy. The patient does not feel comfortable with observation at this time given the possibility that this could very well be cancerous. ' I explained that the size and location of the mass are not optimal for cryotherapy or RFA. I explained that these are not the gold standard treatments for patients that are considered surgical candidates. I explained partial nephrectomy. I explained the process of open and laparoscopic/ robotic parital nephrectomy. The size and location of the mass and the contralateral renal function help to determine if this is an option. I explained that even if a nephron sparing surgical approach is chosen, there is always a possibilty of converting to a radical nephrectomy if the sittuation should warrent this. The size and location of this renal mass is not ammenable to nephron sparing approaches and does warrent a radical nephrectomy. I explained open and laparoscopic and robotic approaches to radical nephrectomy. I explained that even if a laparoscopic approach is chosen, there is always a possibility of converting to an open approach during surgery if the situation should warrent that. All risks, benefits and alteranatives were explained to this patient and patient does fully understand and wish to proceed forward. I did explain that the surgery does not guarantee a cure. Impression/Plan Diagnoses and all orders for this visit: Renal mass Renal cyst Enlarging right renal mass He has discussed with PCP and and does wish to proceed with surgery Central location makes partial nephrectomy not an option Will plan for robotic right radical nephrectomy The patient verbalizes understanding of the plan of care. Conner Quintero MD 08/24/22 9:48 AM documented in this encounter [facility] 02-20-2024 Telephone encounter Note Recent Visits Date Type Provider Dept 01/23/24 Clinical Support SCHEDULE, [facility] 12/26/23 Office Visit Shawanda Costa MD [facility] 08/29/23 Office Visit Shawnada Costa MD [facility] 07/07/23 Office Visit Shawanda Costa MD [facility] 03/07/23 Office Visit Shawanda Costa MD [facility] Showing recent visits within past 365 days and meeting all other requirements Future Appointments Date Type Provider Dept 04/08/24 Appointment Shawanda Costa MD [facility] Showing future appointments within next 90 days and meeting all other requirements Requested Prescriptions Pending Prescriptions Disp Refills propranolol (Inderal) 20 MG tablet 60 tablet 1 Sig: Take 1 tablet (20 mg) by mouth 2 times daily. Provider: Shawanda Costa MD Verified pharmacy: yes Verified day(s) supplied: yes Verified refill(s) needed (previous prescription showing no refills in chart): No - unable to verify prescription refills in chart Have you received any controlled medications from any other provider? No Overdue for visit: No If yes - patient scheduled? Yes Most recent labs completed in chart? N/A [facility] 02-20-2024 Miscellaneous Notes Recent Visits Date Type Provider Dept 01/23/24 Clinical Support SCHEDULE, [facility] 12/26/23 Office Visit Shawanda Costa MD [facility] 08/29/23 Office Visit Shawanda Costa MD [facility] 07/07/23 Office Visit Shawanda Costa MD [facility] 03/07/23 Office Visit Shawanda Costa MD [facility] Showing recent visits within past 365 days and meeting all other requirements Future Appointments Date Type Provider Dept 04/08/24 Appointment Shawanda Costa MD [facility] Showing future appointments within next 90 days and meeting all other requirements Requested Prescriptions Pending Prescriptions Disp Refills propranolol (Inderal) 20 MG tablet 60 tablet 1 Sig: Take 1 tablet (20 mg) by mouth 2 times daily. Provider: Shawanda Cotsa MD Verified pharmacy: yes Verified day(s) supplied: yes Verified refill(s) needed (previous prescription showing no refills in chart): No - unable to verify prescription refills in chart Have you received any controlled medications from any other provider? No Overdue for visit: No If yes - patient scheduled? Yes Most recent labs completed in chart? N/A documented in this encounter [facility] 02-07-2024 History of Present illness Narrative Images from the original note were not included. [facility] [address] [facility] [address] [facility] [address] Dept: [phone] Dept Loc: [phone] Reason for Visit: Patient was identified and seen today via Telehealth by agreement and consent. I used the following Telehealth technology: Audio capability only. Total length of call 20 minutes. The patient was offered and advised video for a more comprehensive evaluation, but the patient declined or was unable to use video. Patient location: Patient Location: Home. This patient encounter is appropriate and reasonable under the circumstances: . The patient has been advised of the potential risks and limitations of this mode of treatment (including but not limited to the absence of in-person examination) and has agreed to be treated in a remote fashion in spite of them. Any and all of the patient's/patient's family's questions on this issue have been answered and I have made no promises or guarantees to the patient. The patient has also been advised to contact this office for worsening conditions or problems, and seek emergency medical treatment and/or call 911 if the patient deems either necessary. The patient stated that they are currently in the [facility]. If the patient is a minor, permission has been obtained by the parent or guardian for the patient to receive medical care at this visit. Assessment and Plan 1. Liver lesion I referred patient over to see gastroenterology who is already been established with since 2019. - [facility] Gastro[facility]ology 2. Renal cyst, right Urology Dr. Leon moore. Patient currently will continue his Micardis. For the blood pressure. current treatment plan is effective, no change in therapy, orders and follow up as documented in EMR, lab results reviewed with patient, repeat labs ordered prior to next appointment, reviewed compliance with lifestyle measures, reviewed diet, exercise and weight control, reviewed medications and side effects in detail Return visit in 3 months. Subjective HPI this is a 73-year-old male patient who has a history of a right renal cyst. Allergies suspicious that this may be a mass. That possibly might be malignant. They are discussing getting a nephrectomy with the patient. Patient also wanted to have further workup he was seeing gastroenterology in 2019 but they no longer scheduled any further follow-ups with him. He had hepatic cyst noted on MRIs. Review of Systems Constitutional: Negative. Negative for activity change, appetite change and fever. HENT: Negative. Negative for congestion. Eyes: Negative. Negative for discharge. Respiratory: Negative. Negative for chest tightness. Cardiovascular: Negative. Gastrointestinal: Negative. Endocrine: Negative. Negative for cold intolerance. Genitourinary: Negative for difficulty urinating. Musculoskeletal: Negative. Neurological: Negative. Negative for dizziness, facial asymmetry and headaches. Hematological: Negative. Allergies Allergen Reactions Pollen Extract Seasonal allergies. Ropinirole Constipation and sleepiness Outpatient Medications Prior to Visit Medication Sig Dispense Refill carbidopa-levodopa (Sinemet) 25-100 MG tablet Take 1 tablet by mouth 3 times daily. 270 tablet 1 clonazePAM (KlonoPIN) 0.5 MG tablet Take 0.5 tablets (0.25 mg) by mouth Daily as needed for anxiety. 8 tablet 0 cyclobenzaprine (Flexeril) 10 MG tablet Take 1 tablet (10 mg) by mouth Nightly as needed for muscle spasms. 30 tablet 1 gabapentin (Neurontin) 400 MG capsule Take 5 before bedime 150 capsule 3 loratadine (Claritin) 10 MG tablet Take 1 tablet (10 mg) by mouth daily. 90 tablet 1 meloxicam (Mobic) 15 MG tablet Take by mouth Daily as needed. methylPREDNISolone (Medrol Dospak) 4 MG tablets propranolol (Inderal) 20 MG tablet Take 1 tablet (20 mg) by mouth 2 times daily. 60 tablet 1 rasagiline (Azilect) 0.5 MG tablet Take 1 tablet (0.5 mg) by mouth daily. (Patient not taking: Reported on 01/24/2024) 90 tablet 1 tamsulosin (Flomax) 0.4 MG 24 hr capsule Take 1 capsule (0.4 mg) by mouth daily. 90 capsule 1 telmisartan (MIcarDIS) 20 MG tablet Take 1 tablet (20 mg) by mouth daily. 90 tablet 1 No facility-administered medications prior to visit. 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 Orthostatic hypotension MDD (major depressive disorder) Dyslipidemia Ascending aortic aneurysm (HCC) Renal cyst, right Essential hypertension Gram-negative sepsis, unspecified (HCC) Lightheadedness Acute cystitis without hematuria Elevated troponin Hyponatremia Pulmonary emphysema, unspecified emphysema type (HCC) Past Medical History: Diagnosis Date 2018 novel coronavirus disease (COVID-19) 02/18/2023 Abnormal EKG Allergic 01/15/1992 Anxiety Arthritis 02/13/2023 Enlarged prostate Hyperlipidemia Hypertension REM sleep behavior disorder Sepsis (HCC) Social History Tobacco Use Smoking status: Former Packs/day: 1.00 Years: 25.00 Additional pack years: 0.00 Total pack years: 25.00 Types: Cigarettes Start date: 11/26/1984 Quit date: 11/28/2008 Years since quittin.2 Smokeless tobacco: Not on file Tobacco comments: Current, daily use of nicotene pouches Substance Use Topics Alcohol use: Not Currently Past Surgical History: Procedure Laterality Date CYST REMOVAL 1970 Tailbone cyst CYSTOSCOPY 02/12/2023 C&P with stent KIDNEY SURGERY 02/15/2023 Family History Problem Relation Name Age of Onset Parkinsonism Mother Juhi Rodriguez High Blood Pressure Mother Juhi Rodriguez Depression Mother Juhi Rodriguez Hearing loss Mother Juhi Rodriguez Fainting Mother Juhi Rodriguez Hypertension Mother Juhi Rodriguez Mental illness Mother Juhi Rodriguez Heart disease Father Nery Rodriguez Sr. Bipolar disorder Sister Bailey Rodriguez Mental illness Sister Bailey Rodriguez Health Maintenance Topic Date Due Diabetes Screening Never done IPV Vaccines (2 of 3 - Adult catch-up series) 09/13/1973 Hepatitis A Vaccines (2 of 2 - Risk 2-dose series) 01/16/1997 RSV Immunization aged 60 or older (1 - 1-dose 60+ series) Never done Hepatitis B Vaccines (1 of 3 - Risk 3-dose series) Never done Zoster Vaccines (2 of 3) 12/24/2012 Colorectal Cancer Screening 08/28/2021 COVID-19 Vaccine ( season) 2023 Depresssion Monitoring 02/27/2024 Medicare Annual Wellness (AWV) 09/28/2024 Lipid Panel 12/17/2028 DTaP/Tdap/Td Vaccines (3 - Td or Tdap) 01/20/2030 Influenza Vaccine Completed Pneumococcal Vaccine: 65+ Years Completed Hepatitis C Screening Completed RSV Immunization under 20 Months Aged Out HIB Vaccines Aged Out Meningococcal Vaccine Aged Out Rotavirus Vaccines Aged Out HPV Vaccines Aged Out Lung Cancer Screening Discontinued Objective There were no vitals taken for this visit. Physical Exam Data Reviewed and Summarized Labs: Lab Results Component Value Date WBC 4.7 12/28/2023 HGB 13.7 12/28/2023 HCT 39.7 (L) 12/28/2023 PLT 256 12/28/2023 TSH 1.092 12/29/2022 PSA 3.958 09/16/2021 INR 1.0 08/25/2020 Lab Results Component Value Date NA 139 12/28/2023 K 4.0 12/28/2023 CL 106 12/28/2023 CO2 26 12/28/2023 BUN 12 12/28/2023 CREATININE 1.03 12/28/2023 GLUCOSE 98 12/28/2023 CALCIUM 9.4 12/28/2023 PROT 7.1 12/28/2023 BILITOT 0.8 12/28/2023 ALKPHOS 82 12/28/2023 AST 32 12/28/2023 ALT 6 12/28/2023 @GLUCOSELAB@ Lab Results Component Value Date CHOL 191 12/18/2023 CHOL 217 (A) 03/18/2022 CHOL 197 09/16/2021 Lab Results Component Value Date TRIG 93 12/18/2023 TRIG 93 03/18/2022 TRIG 88 09/16/2021 Lab Results Component Value Date HDL 52 12/18/2023 HDL 55 03/18/2022 HDL 50 09/16/2021 Lab Results Component Value Date LDLCALC 120 (H) 12/18/2023 No results found for: VLDL Lab Results Component Value Date CHOLHDLRATIO 4 12/18/2023 CHOLHDLRATIO 4 03/18/2022 CHOLHDLRATIO 4 09/16/2021 Imaging/Testing: US retroperitoneum limited Narrative: [facility] Name[facility]IG[facility]Z [facility] 1950 [id number] Exam Date/Time: 01/16/2024 12:56 Procedure: US RETROPERITONEUM LIMITED Ordering Provider: QUINTERO JOSHUA Reason For Exam: right renal mass Exam type: Ultrasound retroperitoneum. EXAM DATE AND TIME: 01/16/2024 12:56 PM EDT INDICATION: 73 years Male with renal mass COMPARISON: 07/21/2023 Technique: Grayscale sonographic images were obtained of the kidneys and bladder. Color Doppler was utilized. FINDINGS: RIGHT KIDNEY: Size: 11.9 cm in craniocaudal dimension Echogenicity: Normal Parenchymal thickness: Normal Contour: Smooth Pelvicalyceal dilatation: None Calculus: none Mass: Subtle heterogeneous lesion measuring 2.6 x 2.7 x 2.6 cm, previously 2.0 x 2.0 x 2.6 cm on the prior MRI Cyst: Large simple cyst measuring 6.6 x 6.3 x 4.8 cm LEFT KIDNEY: Size: 12.9 cm in craniocaudal dimension Echogenicity: Normal Parenchymal thickness: Normal Contour: Smooth Pelvicalyceal dilatation: None Calculus: none Mass: none Cyst: none Bladder: Normal. Other: Enlarged prostate measuring 4.8 x 4.8 x 4.8 cm Impression: 1. Right renal lesion concerning for neoplasm, increased in size from the prior study. 2. Prostatomegaly. Report Dictated on Electronically Signed By: Daryl Monzon MD Electronically Signed Date/Time: 01/18/2024 1:16 PM EDT Shawanda Costa MD documented in this encounter [facility] 01-24-2024 History of Present illness Narrative Images from the original note were not included. Conner Quintero MD 01/24/2024 at 2:46 PM Office follow up PATIENT NAME: Nery Rodriguez DATE OF : 1950 TODAY'S DATE: 01/24/2024 CHIEF COMPLAINT: Chief Complaint Patient presents with Renal Mass 6 month follow up GILLIAN prior Subjective: Mr. Rodriguez is a 73 y.o. male who presents to the office for follow up of right renal mass He does have history of nephrolithiasis, previously with urosepsis from obstructing calculus February 2023 He does exercise daily, for at least 30 mins, as a stategy to slow down parkinsons progression He has had parkinsons disease for three years, little to no affect on cognition or motor function at this point. He is very active and independent Review of Systems Constitutional: Negative for activity change and appetite change. Gastrointestinal: Negative for abdominal distention. Genitourinary: Negative for difficulty urinating and hematuria. Past Medical History: Past Medical History: Diagnosis Date 2019 novel coronavirus disease (COVID-19) 02/18/2023 Abnormal EKG Allergic 01/15/1992 Anxiety Arthritis 02/13/2023 Enlarged prostate Hyperlipidemia Hypertension REM sleep behavior disorder Sepsis (HCC) Past Surgical History: Past Surgical History: Procedure Laterality Date CYST REMOVAL 1970 Tailbone cyst CYSTOSCOPY 02/12/2023 C&P with stent KIDNEY SURGERY 02/15/2023 Allergies: Pollen extract and Ropinirole Social History: Social History Socioeconomic History Marital status: Spouse name: Not on file Number of children: Not on file Years of education: Not on file Highest education level: Not on file Occupational History Not on file Tobacco Use Smoking status: Former Packs/day: 1.00 Years: 25.00 Additional pack years: 0.00 Total pack years: 25.00 Types: Cigarettes Start date: 11/26/1984 Quit date: 11/28/2008 Years since quittin.1 Smokeless tobacco: Not on file Tobacco comments: Current, daily use of nicotene pouches Vaping Use Vaping Use: Never used Substance and Sexual Activity Alcohol use: Not Currently Drug use: Never Comment: Caffeine: 1 cup of coffee; occasionally in afternoon Sexual activity: Not Currently Partners: Female control/protection: None Other Topics Concern Not on file Social History Narrative Not on file Social Determinants of Health Financial Resource Strain: Not on file Food Insecurity: Not on file Transportation Needs: Not on file Physical Activity: Not on file Stress: Not on file Social Connections: Not on file Intimate Partner Violence: Not At Risk (02/11/2023) Humiliation, Afraid, Rape, and Kick questionnaire Fear of Current or Ex-Partner: No Emotionally Abused: No Physically Abused: No Sexually Abused: No Housing Stability: Not on file Family History: Medications Prior to Admission medications Medication Sig Start Date End Date Taking? Authorizing Provider carbidopa-levodopa (Sinemet) 25-100 MG tablet Take 1 tablet by mouth 3 times daily. 12/25/23 03/24/24 Yes Breanna Tolliver MD clonazePAM (KlonoPIN) 0.5 MG tablet Take 0.5 tablets (0.25 mg) by mouth Daily as needed for anxiety. 01/03/24 Yes Tanmay Elliott DO gabapentin (Neurontin) 400 MG capsule Take 5 before bedime 01/15/24 Yes Shawanda Costa MD loratadine (Claritin) 10 MG tablet Take 1 tablet (10 mg) by mouth daily. 11/20/23 Yes Shawanda Costa MD meloxicam (Mobic) 15 MG tablet Take by mouth Daily as needed. 01/31/23 Yes Historical Provider, propranolol (Inderal) 20 MG tablet Take 1 tablet (20 mg) by mouth 2 times daily. 12/26/23 06/23/24 Yes Shawanda Costa MD tamsulosin (Flomax) 0.4 MG 24 hr capsule Take 1 capsule (0.4 mg) by mouth daily. 11/13/23 Yes Shawanda Costa MD telmisartan (MIcarDIS) 20 MG tablet Take 1 tablet (20 mg) by mouth daily. 09/12/23 Yes Shawanda Costa MD cyclobenzaprine (Flexeril) 10 MG tablet Take 1 tablet (10 mg) by mouth Nightly as needed for muscle spasms. 01/02/23 09/20/23 Shawanda Costa MD methylPREDNISolone (Medrol Dospak) 4 MG tablets Historical Provider, rasagiline (Azilect) 0.5 MG tablet Take 1 tablet (0.5 mg) by mouth daily. Patient not taking: Reported on 01/24/2024 12/25/23 03/24/24 Breanna Tolliver MD Vitals: There were no vitals taken for this visit. Physical Exam General: alert, appears stated age, and cooperative Abdomen: soft and nondistended Back: straight, CVA tenderness absent : defer exam Labs: WBC Lab Results Component Value Date WBC 4.7 12/28/2023 BMP Lab Results Component Value Date NA 139 12/28/2023 K 4.0 12/28/2023 CL 106 12/28/2023 CO2 26 12/28/2023 BUN 12 12/28/2023 CREATININE 1.03 12/28/2023 CREATININE 0.89 03/18/2022 GLUCOSE 98 12/28/2023 CALCIUM 9.4 12/28/2023 PSA Lab Results Component Value Date PSA 3.958 09/16/2021 PSA 2.232 05/17/2021 PSA 1.723 02/20/2020 UA Lab Results Component Value Date COLORU Yellow 02/11/2023 GLUCOSEU Normal 02/11/2023 UROBILINOGEN Normal 02/11/2023 Review: Patient Name: NERY [facility]ODRIGUEZ : 1950 [id number] Exam Date/Time: 01/16/2024 12:56 Procedure: US RETROPERITONEUM LIMITED Ordering Provider: QUINTERO JOSHUA Reason For Exam: right renal mass Exam type: Ultrasound retroperitoneum. EXAM DATE AND TIME: 01/16/2024 12:56 PM EDT INDICATION: 73 years Male with renal mass COMPARISON: 07/21/2023 Technique: Grayscale sonographic images were obtained of the kidneys and bladder. Color Doppler was utilized. FINDINGS: RIGHT KIDNEY: Size: 11.9 cm in craniocaudal dimension Echogenicity: Normal Parenchymal thickness: Normal Contour: Smooth Pelvicalyceal dilatation: None Calculus: none Mass: Subtle heterogeneous lesion measuring 2.6 x 2.7 x 2.6 cm, previously 2.0 x 2.0 x 2.6 cm on the prior MRI Cyst: Large simple cyst measuring 6.6 x 6.3 x 4.8 cm LEFT KIDNEY: Size: 12.9 cm in craniocaudal dimension Echogenicity: Normal Parenchymal thickness: Normal Contour: Smooth Pelvicalyceal dilatation: None Calculus: none Mass: none Cyst: none Bladder: Normal. Other: Enlarged prostate measuring 4.8 x 4.8 x 4.8 cm IMPRESSION: 1. Right renal lesion concerning for neoplasm, increased in size from the prior study. 2. Prostatomegaly. I had a long discussion with the patient today regarding this diagnosis of renal mass. I explained that the very likely diagnosis of this renal mass is cancer. I discussed the treatment options for this renal mass which include observation, cryotherapy, RFA, partial and radical nephrectomy. The patient does not feel comfortable with observation at this time given the possibility that this could very well be cancerous. ' I explained that the size and location of the mass are not optimal for cryotherapy or RFA. I explained that these are not the gold standard treatments for patients that are considered surgical candidates. I explained partial nephrectomy. I explained the process of open and laparoscopic/ robotic parital nephrectomy. The size and location of the mass and the contralateral renal function help to determine if this is an option. I explained that even if a nephron sparing surgical approach is chosen, there is always a possibilty of converting to a radical nephrectomy if the sittuation should warrent this. The size and location of this renal mass is not ammenable to nephron sparing approaches and does warrent a radical nephrectomy. I explained open and laparoscopic and robotic approaches to radical nephrectomy. I explained that even if a laparoscopic approach is chosen, there is always a possibility of converting to an open approach during surgery if the situation should warrent that. All risks, benefits and alteranatives were explained to this patient and patient does fully understand and wish to proceed forward. I did explain that the surgery does not guarantee a cure. Impression/Plan Diagnoses and all orders for this visit: Renal mass Renal cyst Enlarging solid right renal mass, very high probability of renal cancer Given central location this would not be amenable to nephron sparing options and does warrant robotic laparoscopic radical nephrectomy I discussed renal mass biopsy however this does carry false negative potential, would expose him to more than one procedure and would not likely change our treatment approach He would like to discuss with Dr Costa the impact surgery could have on his Parkinsons disease Will schedule follow up conference with him and his No follow-ups on file. Conner Quintero MD 01/24/24 2:46 PM documented in this encounter [facility] 01-15-2024 Telephone encounter Note STEFANIE [id number] [facility] 01-15-2024 Miscellaneous Notes STEFANIE [id number] documented in this encounter [facility] 12-26-2023 History of Present illness Narrative Images from the original note were not included. [facility] [address] [place] [address] [address] [facility] [address] Dept: [phone] Dept Loc: [phone] Reason for Visit: Follow-up Assessment and Plan 1. Arthralgia of hand, unspecified laterality - JOSE - Sedimentation rate, automated - Rheumatoid factor - CBC auto differential - Comprehensive metabolic panel 2. Pulmonary emphysema, unspecified emphysema type (HCC) 3. Aneurysm of ascending aorta without rupture (HCC) cardiology is following. 4. Anxiety patient currently seeing psychiatry I encouraged patient to continue to follow-up I gave patient a list of psychiatrist that were closer to where he lived. I went ahead and started a low-dose propranolol as patient's blood pressure and heart rate have been stable. To see if this would help until he gets into see psychiatry as well current treatment plan is effective, no change in therapy, orders and follow up as documented in EMR, lab results reviewed with patient, repeat labs ordered prior to next appointment, reviewed compliance with lifestyle measures, reviewed diet, exercise and weight control, reviewed medications and side effects in detail Return visit in 3 months. Subjective HPI this is a 73-year-old gentleman with multiple medical conditions. First issue is here for his he went to see [facility] dermatology he was told the lesions on his hands that he has been getting more possible rheumatic nodules. I do not have a copy of the report. I will try to obtain. He has had some arthralgias. No known history of rheumatoid arthritis. He is willing to get checked for this however. The next issue is he has been seeing psychiatrist he has a history of anxiety and panic attacks he however has to drive very far to see a psychiatrist and is looking to see 1 closer. He has been on clonazepam which has worked well but he is willing to try another medication his blood pressure has been a little bit elevated on other doctors offices. He is asking about propranolol he has not been in the past. He is also going to reestablish with another psychiatrist. He also has a history of an ascending aneurysm which Of cardiology is following. Review of Systems Constitutional: Negative. Negative for activity change, appetite change and fever. HENT: Negative. Negative for congestion. Eyes: Negative. Negative for discharge. Respiratory: Negative. Negative for chest tightness. Cardiovascular: Negative. Gastrointestinal: Negative. Endocrine: Negative. Negative for cold intolerance. Genitourinary: Negative for difficulty urinating. Musculoskeletal: Negative. Neurological: Negative. Negative for dizziness, facial asymmetry and headaches. Hematological: Negative. Allergies Allergen Reactions Pollen Extract Seasonal allergies. Ropinirole Constipation and sleepiness Outpatient Medications Prior to Visit Medication Sig Dispense Refill carbidopa-levodopa (Sinemet) 25-100 MG tablet Take 1 tablet by mouth 3 times daily. 270 tablet 1 clonazePAM (KlonoPIN) 0.5 MG tablet Take 0.5 tablets (0.25 mg) by mouth Daily as needed for anxiety. 8 tablet 0 cyclobenzaprine (Flexeril) 10 MG tablet Take 1 tablet (10 mg) by mouth Nightly as needed for muscle spasms. 30 tablet 1 gabapentin (Neurontin) 400 MG capsule Take 5 before bedime 150 capsule 3 loratadine (Claritin) 10 MG tablet Take 1 tablet (10 mg) by mouth daily. 90 tablet 1 meloxicam (Mobic) 15 MG tablet Take by mouth Daily as needed. methylPREDNISolone (Medrol Dospak) 4 MG tablets rasagiline (Azilect) 0.5 MG tablet Take 1 tablet (0.5 mg) by mouth daily. 90 tablet 1 tamsulosin (Flomax) 0.4 MG 24 hr capsule Take 1 capsule (0.4 mg) by mouth daily. 90 capsule 1 telmisartan (MIcarDIS) 20 MG tablet Take 1 tablet (20 mg) by mouth daily. 90 tablet 1 No facility-administered medications prior to visit. 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 Orthostatic hypotension MDD (major depressive disorder) Dyslipidemia Ascending aortic aneurysm (HCC) Renal cyst, right Essential hypertension Gram-negative sepsis, unspecified (HCC) Lightheadedness Acute cystitis without hematuria Elevated troponin Hyponatremia Pulmonary emphysema, unspecified emphysema type (HCC) Past Medical History: Diagnosis Date 2019 novel coronavirus disease (COVID-19) 02/18/2023 Abnormal EKG Allergic 01/15/1992 Anxiety Arthritis 02/13/2023 Enlarged prostate Hyperlipidemia Hypertension REM sleep behavior disorder Sepsis (HCC) Social History Tobacco Use Smoking status: Former Packs/day: 1.00 Years: 25.00 Additional pack years: 0.00 Total pack years: 25.00 Types: Cigarettes Start date: 11/26/1984 Quit date: 11/28/2008 Years since quittin.0 Smokeless tobacco: Not on file Tobacco comments: Current, daily use of nicotene pouches Substance Use Topics Alcohol use: Not Currently Past Surgical History: Procedure Laterality Date CYST REMOVAL 1970 Tailbone cyst CYSTOSCOPY 02/12/2023 C&P with stent KIDNEY SURGERY 02/15/2023 Family History Problem Relation Name Age of Onset Parkinsonism Mother Juhi Rodriguez High Blood Pressure Mother Juhi Rodriguez Depression Mother Juhi Rodriguez Hearing loss Mother Juhi Rodriguez Fainting Mother Juhi Rodriguez Hypertension Mother Juhi Rodriguez Mental illness Mother Juhi Rodriguez Heart disease Father Nery Rodriguez Sr. Bipolar disorder Sister Bailey Rodriguez Mental illness Sister Bailey Rodriguez Health Maintenance Topic Date Due Diabetes Screening Never done IPV Vaccines (2 of 3 - Adult catch-up series) 09/13/1973 Hepatitis A Vaccines (2 of 2 - Risk 2-dose series) 01/16/1997 RSV Immunization aged 60 or older (1 - 1-dose 60+ series) Never done Hepatitis B Vaccines (1 of 3 - Risk 3-dose series) Never done Zoster Vaccines (2 of 3) 12/24/2012 Colorectal Cancer Screening 08/28/2021 COVID-19 Vaccine ( season) 2023 Depresssion Monitoring 02/27/2024 Medicare Annual Wellness (AWV) 09/28/2024 Lipid Panel 12/17/2028 DTaP/Tdap/Td Vaccines (3 - Td or Tdap) 01/20/2030 Influenza Vaccine Completed Pneumococcal Vaccine: 65+ Years Completed Hepatitis C Screening Completed RSV Immunization under 20 Months Aged Out HIB Vaccines Aged Out Meningococcal Vaccine Aged Out Rotavirus Vaccines Aged Out HPV Vaccines Aged Out Lung Cancer Screening Discontinued Objective BP 126/74 Pulse 94 Temp 37.3 C (99.1 F) Ht 6' 1 (1.854 m) Wt 230 lb (104 kg) SpO2 96% BMI 30.34 kg/m Physical Exam Vitals and nursing note reviewed. Constitutional: Appearance: Normal appearance. HENT: Head: Normocephalic and atraumatic. Nose: No congestion or rhinorrhea. Mouth/Throat: Mouth: Mucous membranes are moist. Pharynx: Oropharynx is clear. No posterior oropharyngeal erythema. Eyes: Extraocular Movements: Extraocular movements intact. Conjunctiva/sclera: Conjunctivae normal. Pupils: Pupils are equal, round, and reactive to light. Cardiovascular: Pulses: Normal pulses. Heart sounds: Normal heart sounds. No murmur heard. Pulmonary: Effort: Pulmonary effort is normal. No respiratory distress. Breath sounds: Normal breath sounds. No wheezing. Abdominal: General: Abdomen is flat. Bowel sounds are normal. Palpations: Abdomen is soft. Tenderness: There is no abdominal tenderness. Musculoskeletal: General: No swelling. Cervical back: Normal range of motion. Skin: General: Skin is warm and dry. Comments: Small erythematous like nodules located on his hands. Neurological: General: No focal deficit present. Mental Status: He is alert and oriented to person, place, and time. Mental status is at baseline. Psychiatric: Mood and Affect: Mood normal. Data Reviewed and Summarized Labs: Lab Results Component Value Date WBC 5.1 12/18/2023 HGB 13.4 12/18/2023 HCT 38.6 (L) 12/18/2023 PLT 252 12/18/2023 TSH 1.092 12/29/2022 PSA 3.958 09/16/2021 INR 1.0 08/25/2020 Lab Results Component Value Date NA 137 12/18/2023 K 4.4 12/18/2023 CL 105 12/18/2023 CO2 29 12/18/2023 BUN 17 12/18/2023 CREATININE 0.96 12/18/2023 GLUCOSE 93 12/18/2023 CALCIUM 9.3 12/18/2023 PROT 7.2 12/18/2023 BILITOT 0.8 12/18/2023 ALKPHOS 80 12/18/2023 AST 26 12/18/2023 ALT 6 12/18/2023 @GLUCOSELAB@ Lab Results Component Value Date CHOL 191 12/18/2023 CHOL 217 (A) 03/18/2022 CHOL 197 09/16/2021 Lab Results Component Value Date TRIG 93 12/18/2023 TRIG 93 03/18/2022 TRIG 88 09/16/2021 Lab Results Component Value Date HDL 52 12/18/2023 HDL 55 03/18/2022 HDL 50 09/16/2021 Lab Results Component Value Date LDLCALC 120 (H) 12/18/2023 No results found for: VLDL Lab Results Component Value Date CHOLHDLRATIO 4 12/18/2023 CHOLHDLRATIO 4 03/18/2022 CHOLHDLRATIO 4 09/16/2021 Imaging/Testing: MR abdomen w and wo contrast Narrative: Patient Name: NERY RODRIGUEZ : 1950 [facility] [place]#: [id number] Exam Date/Time: 07/21/2023 12:09 Procedure: MR ABDOMEN W AND WO CONTRAST Ordering Provider: QUINTERO JOSHUA Reason For Exam: Renal mass/cyst, indeterminate MRI ABDOMEN WITHOUT AND WITH CONTRAST (WITH ATTENTION TO THE KIDNEYS): CLINICAL INDICATION: Focal renal mass. TECHNIQUE: Multiplanar multisequence MR images were performed through the abdomen, including diffusion-weighted images and dynamic contrast-enhanced T1 sequence during injection of 10 mL of Gadavist contrast. Comparison: 07/18/2022, 11/15/2021 FINDINGS: Kidneys: Symmetric size and enhancement. No hydronephrosis. Renal Lesions: Simple right renal cysts, not requiring imaging follow-up. There is redemonstration of an enhancing lesion in the interpolar right kidney measuring approximately 2.0 x 2.0 cm, previously 1.7 x 1.4 cm. The renal vein is patent. Lymphadenopathy:None Liver: The liver is normal in size and contour. There is no drop in signal on in-phase or opposed-phase images to suggest fat or iron deposition. Numerous simple cysts are present throughout both hepatic lobes. Two septated cysts are again present in the left hepatic lobe Biliary tree: Normal gallbladder. No biliary dilatation. Spleen: Normal Adrenals:Normal Pancreas: Homogeneous enhancement without mass or peripancreatic fluid. No pancreatic duct dilation. Aorta: Normal caliber Visualized Osseous structures: Normal Other: Diverticulosis in the visualized colon. Impression: 1. Enhancing right renal lesion concerning for neoplasm, slightly increased in size dating back to 11/15/2021. 2. Multiple liver cysts, some of which contain thin septations. 3. Diverticulosis. Report Dictated on Electronically Signed By: Daryl Monzon MD Electronically Signed Date/Time: 07/23/2023 6:50 PM EDT Shawanda Costa MD documented in this encounter [facility] 12-26-2023 History of Present illness Narrative Images from the original note were not included. [facility] [address] [facility] [address] [facility] [address] Dept: [phone] Dept Loc: [phone] Reason for Visit: Follow-up Assessment and Plan 1. Arthralgia of hand, unspecified laterality - JOSE - Sedimentation rate, automated - Rheumatoid factor - CBC auto differential - Comprehensive metabolic panel 2. Pulmonary emphysema, unspecified emphysema type (HCC) 3. Aneurysm of ascending aorta without rupture (HCC) cardiology is following. 4. Anxiety patient currently seeing psychiatry I encouraged patient to continue to follow-up I gave patient a list of psychiatrist that were closer to where he lived. I went ahead and started a low-dose propranolol as patient's blood pressure and heart rate have been stable. To see if this would help until he gets into see psychiatry as well current treatment plan is effective, no change in therapy, orders and follow up as documented in EMR, lab results reviewed with patient, repeat labs ordered prior to next appointment, reviewed compliance with lifestyle measures, reviewed diet, exercise and weight control, reviewed medications and side effects in detail Return visit in 3 months. Subjective HPI this is a 73-year-old gentleman with multiple medical conditions. First issue is here for his he went to see [facility] dermatology he was told the lesions on his hands that he has been getting more possible rheumatic nodules. I do not have a copy of the report. I will try to obtain. He has had some arthralgias. No known history of rheumatoid arthritis. He is willing to get checked for this however. The next issue is he has been seeing psychiatrist he has a history of anxiety and panic attacks he however has to drive very far to see a psychiatrist and is looking to see 1 closer. He has been on clonazepam which has worked well but he is willing to try another medication his blood pressure has been a little bit elevated on other doctors offices. He is asking about propranolol he has not been in the past. He is also going to reestablish with another psychiatrist. He also has a history of an ascending aneurysm which Of cardiology is following. Review of Systems Constitutional: Negative. Negative for activity change, appetite change and fever. HENT: Negative. Negative for congestion. Eyes: Negative. Negative for discharge. Respiratory: Negative. Negative for chest tightness. Cardiovascular: Negative. Gastrointestinal: Negative. Endocrine: Negative. Negative for cold intolerance. Genitourinary: Negative for difficulty urinating. Musculoskeletal: Negative. Neurological: Negative. Negative for dizziness, facial asymmetry and headaches. Hematological: Negative. Allergies Allergen Reactions Pollen Extract Seasonal allergies. Ropinirole Constipation and sleepiness Outpatient Medications Prior to Visit Medication Sig Dispense Refill carbidopa-levodopa (Sinemet) 25-100 MG tablet Take 1 tablet by mouth 3 times daily. 270 tablet 1 clonazePAM (KlonoPIN) 0.5 MG tablet Take 0.5 tablets (0.25 mg) by mouth Daily as needed for anxiety. 8 tablet 0 cyclobenzaprine (Flexeril) 10 MG tablet Take 1 tablet (10 mg) by mouth Nightly as needed for muscle spasms. 30 tablet 1 gabapentin (Neurontin) 400 MG capsule Take 5 before bedime 150 capsule 3 loratadine (Claritin) 10 MG tablet Take 1 tablet (10 mg) by mouth daily. 90 tablet 1 meloxicam (Mobic) 15 MG tablet Take by mouth Daily as needed. methylPREDNISolone (Medrol Dospak) 4 MG tablets rasagiline (Azilect) 0.5 MG tablet Take 1 tablet (0.5 mg) by mouth daily. 90 tablet 1 tamsulosin (Flomax) 0.4 MG 24 hr capsule Take 1 capsule (0.4 mg) by mouth daily. 90 capsule 1 telmisartan (MIcarDIS) 20 MG tablet Take 1 tablet (20 mg) by mouth daily. 90 tablet 1 No facility-administered medications prior to visit. 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 Orthostatic hypotension MDD (major depressive disorder) Dyslipidemia Ascending aortic aneurysm (HCC) Renal cyst, right Essential hypertension Gram-negative sepsis, unspecified (HCC) Lightheadedness Acute cystitis without hematuria Elevated troponin Hyponatremia Pulmonary emphysema, unspecified emphysema type (HCC) Past Medical History: Diagnosis Date 2019 novel coronavirus disease (COVID-19) 02/18/2023 Abnormal EKG Allergic 01/15/1992 Anxiety Arthritis 02/13/2023 Enlarged prostate Hyperlipidemia Hypertension REM sleep behavior disorder Sepsis (HCC) Social History Tobacco Use Smoking status: Former Packs/day: 1.00 Years: 25.00 Additional pack years: 0.00 Total pack years: 25.00 Types: Cigarettes Start date: 11/26/1984 Quit date: 11/28/2008 Years since quittin.0 Smokeless tobacco: Not on file Tobacco comments: Current, daily use of nicotene pouches Substance Use Topics Alcohol use: Not Currently Past Surgical History: Procedure Laterality Date CYST REMOVAL 1970 Tailbone cyst CYSTOSCOPY 02/12/2023 C&P with stent KIDNEY SURGERY 02/15/2023 Family History Problem Relation Name Age of Onset Parkinsonism Mother Juhi Rodriguez High Blood Pressure Mother Juhi Rodriguez Depression Mother Juhi Rodriguez Hearing loss Mother Juhi Rodriguez Fainting Mother Juhi Rodriguez Hypertension Mother Juhi Rodriguez Mental illness Mother Juhi Rodriguez Heart disease Father Nery Rodriguez Sr. Bipolar disorder Sister Bailey Rodriguez Mental illness Sister Bailey Rodriguez Health Maintenance Topic Date Due Diabetes Screening Never done IPV Vaccines (2 of 3 - Adult catch-up series) 09/13/1973 Hepatitis A Vaccines (2 of 2 - Risk 2-dose series) 01/16/1997 RSV Immunization aged 60 or older (1 - 1-dose 60+ series) Never done Hepatitis B Vaccines (1 of 3 - Risk 3-dose series) Never done Zoster Vaccines (2 of 3) 12/24/2012 Colorectal Cancer Screening 08/28/2021 COVID-19 Vaccine ( season) 2023 Depresssion Monitoring 02/27/2024 Medicare Annual Wellness (AWV) 09/28/2024 Lipid Panel 12/17/2028 DTaP/Tdap/Td Vaccines (3 - Td or Tdap) 01/20/2030 Influenza Vaccine Completed Pneumococcal Vaccine: 65+ Years Completed Hepatitis C Screening Completed RSV Immunization under 20 Months Aged Out HIB Vaccines Aged Out Meningococcal Vaccine Aged Out Rotavirus Vaccines Aged Out HPV Vaccines Aged Out Lung Cancer Screening Discontinued Objective BP 126/74 Pulse 94 Temp 37.3 C (99.1 F) Ht 6' 1 (1.854 m) Wt 230 lb (104 kg) SpO2 96% BMI 30.34 kg/m Physical Exam Vitals and nursing note reviewed. Constitutional: Appearance: Normal appearance. HENT: Head: Normocephalic and atraumatic. Nose: No congestion or rhinorrhea. Mouth/Throat: Mouth: Mucous membranes are moist. Pharynx: Oropharynx is clear. No posterior oropharyngeal erythema. Eyes: Extraocular Movements: Extraocular movements intact. Conjunctiva/sclera: Conjunctivae normal. Pupils: Pupils are equal, round, and reactive to light. Cardiovascular: Pulses: Normal pulses. Heart sounds: Normal heart sounds. No murmur heard. Pulmonary: Effort: Pulmonary effort is normal. No respiratory distress. Breath sounds: Normal breath sounds. No wheezing. Abdominal: General: Abdomen is flat. Bowel sounds are normal. Palpations: Abdomen is soft. Tenderness: There is no abdominal tenderness. Musculoskeletal: General: No swelling. Cervical back: Normal range of motion. Skin: General: Skin is warm and dry. Comments: Small erythematous like nodules located on his hands. Neurological: General: No focal deficit present. Mental Status: He is alert and oriented to person, place, and time. Mental status is at baseline. Psychiatric: Mood and Affect: Mood normal. Data Reviewed and Summarized Labs: Lab Results Component Value Date WBC 5.1 12/18/2023 HGB 13.4 12/18/2023 HCT 38.6 (L) 12/18/2023 PLT 252 12/18/2023 TSH 1.092 12/29/2022 PSA 3.958 09/16/2021 INR 1.0 08/25/2020 Lab Results Component Value Date NA 137 12/18/2023 K 4.4 12/18/2023 CL 105 12/18/2023 CO2 29 12/18/2023 BUN 17 12/18/2023 CREATININE 0.96 12/18/2023 GLUCOSE 93 12/18/2023 CALCIUM 9.3 12/18/2023 PROT 7.2 12/18/2023 BILITOT 0.8 12/18/2023 ALKPHOS 80 12/18/2023 AST 26 12/18/2023 ALT 6 12/18/2023 @GLUCOSELAB@ Lab Results Component Value Date CHOL 191 12/18/2023 CHOL 217 (A) 03/18/2022 CHOL 197 09/16/2021 Lab Results Component Value Date TRIG 93 12/18/2023 TRIG 93 03/18/2022 TRIG 88 09/16/2021 Lab Results Component Value Date HDL 52 12/18/2023 HDL 55 03/18/2022 HDL 50 09/16/2021 Lab Results Component Value Date LDLCALC 120 (H) 12/18/2023 No results found for: VLDL Lab Results Component Value Date CHOLHDLRATIO 4 12/18/2023 CHOLHDLRATIO 4 03/18/2022 CHOLHDLRATIO 4 09/16/2021 Imaging/Testing: MR abdomen w and wo contrast Narrative: Patient Name[facility]IGUEZ [facility] 1950 [id number] Exam Date/Time: 07/21/2023 12:09 Procedure: MR ABDOMEN W AND WO CONTRAST Ordering Provider: QUINTERO JOSHUA Reason For Exam: Renal mass/cyst, indeterminate MRI ABDOMEN WITHOUT AND WITH CONTRAST (WITH ATTENTION TO THE KIDNEYS): CLINICAL INDICATION: Focal renal mass. TECHNIQUE: Multiplanar multisequence MR images were performed through the abdomen, including diffusion-weighted images and dynamic contrast-enhanced T1 sequence during injection of 10 mL of Gadavist contrast. Comparison: 07/18/2022, 11/15/2021 FINDINGS: Kidneys: Symmetric size and enhancement. No hydronephrosis. Renal Lesions: Simple right renal cysts, not requiring imaging follow-up. There is redemonstration of an enhancing lesion in the interpolar right kidney measuring approximately 2.0 x 2.0 cm, previously 1.7 x 1.4 cm. The renal vein is patent. Lymphadenopathy:None Liver: The liver is normal in size and contour. There is no drop in signal on in-phase or opposed-phase images to suggest fat or iron deposition. Numerous simple cysts are present throughout both hepatic lobes. Two septated cysts are again present in the left hepatic lobe Biliary tree: Normal gallbladder. No biliary dilatation. Spleen: Normal Adrenals:Normal Pancreas: Homogeneous enhancement without mass or peripancreatic fluid. No pancreatic duct dilation. Aorta: Normal caliber Visualized Osseous structures: Normal Other: Diverticulosis in the visualized colon. Impression: 1. Enhancing right renal lesion concerning for neoplasm, slightly increased in size dating back to 11/15/2021. 2. Multiple liver cysts, some of which contain thin septations. 3. Diverticulosis. Report Dictated on Electronically Signed By: Daryl Monzon MD Electronically Signed Date/Time: 07/23/2023 6:50 PM EDT Shawanda Costa MD documented in this encounter [facility] 12-26-2023 Miscellaneous Notes Addended by: NYLA CHOPRA on: 12/28/2023 09:07 AM Modules accepted: Orders documented in this encounter [facility] 12-26-2023 Note Addended by: NYLA CHOPRA on: 12/28/2023 09:07 AM Modules accepted: Orders [facility] 12-25-2023 History of Present illness Narrative Images from the original note were not included. [facility] [address] [place] [address] [facility] [address] Dept: [phone] Dept Loc: [phone] Visit type: Established Patient Reason for Visit: Follow-up and Tremors Assessment and Plan 1. Parkinson's disease without dyskinesia or fluctuating manifestations - carbidopa-levodopa (Sinemet) 25-100 MG tablet; Take 1 tablet by mouth 3 times daily., Starting 12/25/2023, Until 03/24/2024, Normal - rasagiline (Azilect) 0.5 MG tablet; Take 1 tablet (0.5 mg) by mouth daily., Starting 12/25/2023, Until 03/24/2024, Normal 2. REM sleep behavior disorder Subjective HPI: He reports that he got depression symptoms at the four times a day dosing so he is back down to 3 times a day. He no longer has the dark mood with apathy that 4 times a day caused. The carb-levo has overall improved the tremor. No falls. He denies acting out of dreams. He is not getting out of bed. REVIEW OF SYSTEMS: Review of Systems Constitutional: Negative for appetite change, chills, diaphoresis, fatigue, fever and unexpected weight change. HENT: Negative for dental problem and mouth sores. Eyes: Negative for discharge and itching. Respiratory: Negative for chest tightness and shortness of breath. Cardiovascular: Negative for chest pain, palpitations and leg swelling. Gastrointestinal: Negative for abdominal pain, nausea, rectal pain and vomiting. Endocrine: Negative for polydipsia, polyphagia and polyuria. Genitourinary: Negative for decreased urine volume, flank pain and genital sores. Musculoskeletal: Positive for back pain. Negative for arthralgias and neck pain. Skin: Negative for color change. Allergic/Immunologic: Negative for food allergies and immunocompromised state. Neurological: Positive for tremors. Negative for dizziness, syncope, weakness, light-headedness and headaches. Hematological: Negative for adenopathy. Does not bruise/bleed easily. Psychiatric/Behavioral: Negative for agitation, behavioral problems, confusion, decreased concentration, sleep disturbance and suicidal ideas. Allergies Allergen Reactions Pollen Extract Seasonal allergies. Ropinirole Constipation and sleepiness Current Outpatient Medications: clonazePAM (KlonoPIN) 0.5 MG tablet, Take 0.5 tablets (0.25 mg) by mouth Daily as needed for anxiety., Disp: 8 tablet, Rfl: 0 gabapentin (Neurontin) 400 MG capsule, Take 5 before bedime, Disp: 150 capsule, Rfl: 3 loratadine (Claritin) 10 MG tablet, Take 1 tablet (10 mg) by mouth daily., Disp: 90 tablet, Rfl: 1 tamsulosin (Flomax) 0.4 MG 24 hr capsule, Take 1 capsule (0.4 mg) by mouth daily., Disp: 90 capsule, Rfl: 1 telmisartan (MIcarDIS) 20 MG tablet, Take 1 tablet (20 mg) by mouth daily., Disp: 90 tablet, Rfl: 1 carbidopa-levodopa (Sinemet) 25-100 MG tablet, Take 1 tablet by mouth 3 times daily., Disp: 270 tablet, Rfl: 1 cyclobenzaprine (Flexeril) 10 MG tablet, Take 1 tablet (10 mg) by mouth Nightly as needed for muscle spasms., Disp: 30 tablet, Rfl: 1 meloxicam (Mobic) 15 MG tablet, Take by mouth Daily as needed., Disp: , Rfl: methylPREDNISolone (Medrol Dospak) 4 MG tablets, , Disp: , Rfl: rasagiline (Azilect) 0.5 MG tablet, Take 1 tablet (0.5 mg) by mouth daily., Disp: 90 tablet, Rfl: 1 Past Medical History: Diagnosis Date 2019 novel coronavirus disease (COVID-19) 02/18/2023 Abnormal EKG Allergic 01/15/1992 Anxiety Arthritis 02/13/2023 Enlarged prostate Hyperlipidemia Hypertension REM sleep behavior disorder Sepsis (HCC) Social History Tobacco Use Smoking status: Former Packs/day: 1.00 Years: 25.00 Additional pack years: 0.00 Total pack years: 25.00 Types: Cigarettes Start date: 11/26/1984 Quit date: 11/28/2008 Years since quittin.0 Smokeless tobacco: Not on file Tobacco comments: Current, daily use of nicotene pouches Substance Use Topics Alcohol use: Not Currently Past Surgical History: Procedure Laterality Date CYST REMOVAL 1970 Tailbone cyst CYSTOSCOPY 02/12/2023 C&P with stent KIDNEY SURGERY 02/15/2023 Family History Problem Relation Name Age of Onset Parkinsonism Mother Juhi Rodriguez High Blood Pressure Mother Juhi Rodriguez Depression Mother Juhi Rodriguez Hearing loss Mother Juhi Rodriguez Fainting Mother Juhi Rodriguez Hypertension Mother Juhi Rodriguez Mental illness Mother Juhi Rodriguez Heart disease Father Nery Rodriguez Sr. Bipolar disorder Sister Bailey Rodriguez Mental illness Sister Bailey Rodriguez Objective Vitals: BP (!) 161/83 (BP Location: Left arm, Patient Position: Sitting, BP Cuff Size: Adult) Pulse 67 Ht 6' 1 (1.854 m) Wt 232 lb 3.2 oz (105 kg) BMI 30.64 kg/m General Appearance: Patient is in no apparent distress. Head is normocephalic, atraumatic Cardiovascular: Regular rate and rhythm. No heart murmurs. No carotid bruit Neurologic: Mentation: Alert and oriented x 3 to person, place and time. Speech and Language: Speech and language normal Concentration and Attention: Concentration normal Memory: Memory normal Fund of Knowledge: Fund of knowledge normal Cranial Nerves: II, III, IV, V, , VII, VIII, IX, X, XI, XII examined and were intact. Masked facies. ?lower up gaze. Head titubation Motor: Strength: Strength 5 out of 5 with normal tone Alternating Movements: Normal Cogwheel Rigidity: None Tone: Tone is normal Tremor / Involuntary Movements: Left>right, more torsional than the last visit. Deep Tendon Reflexes: 1 out of 4 symmetrical in all four limbs. Coordination: Normal coordination upper and lower extremities Gait and Station: Station is normal. Gait is pretty much normal just less swing on the left Data Reviewed and Summarized DIAGNOSTIC TESTING CBC: Lab Results Component Value Date WBC 5.1 12/18/2023 RBC 4.09 (L) 12/18/2023 HGB 13.4 12/18/2023 HCT 38.6 (L) 12/18/2023 MCV 94.4 12/18/2023 MCH 32.8 12/18/2023 MCHC 34.7 12/18/2023 RDW 12.1 12/18/2023 PLT 252 12/18/2023 MPV 8.8 (L) 12/18/2023 CMP: Lab Results Component Value Date NA 137 12/18/2023 K 4.4 12/18/2023 CL 105 12/18/2023 CO2 29 12/18/2023 BUN 17 12/18/2023 CREATININE 0.96 12/18/2023 CREATININE 0.89 03/18/2022 GLUCOSE 93 12/18/2023 PROT 7.2 12/18/2023 CALCIUM 9.3 12/18/2023 BILITOT 0.8 12/18/2023 ALKPHOS 80 12/18/2023 AST 26 12/18/2023 ALT 6 12/18/2023 BMP: Lab Results Component Value Date NA 137 12/18/2023 K 4.4 12/18/2023 CL 105 12/18/2023 CO2 29 12/18/2023 BUN 17 12/18/2023 CREATININE 0.96 12/18/2023 CREATININE 0.89 03/18/2022 CALCIUM 9.3 12/18/2023 GLUCOSE 93 12/18/2023 PT/INR: Lab Results Component Value Date PROTIME 10.8 08/25/2020 INR 1.0 08/25/2020 PTT: No results found for: APTT, PTT[APTT} FLP: Lab Results Component Value Date TRIG 93 12/18/2023 HDL 52 12/18/2023 LDLCALC 120 (H) 12/18/2023 TSH: Lab Results Component Value Date TSH 1.092 12/29/2022 VITAMIN B12: VITAMIN B12 Date Value Ref Range Status 12/18/2023 933 (H) 239 - 931 pg/mL Final No results found for: PHENYTOIN, PHENOBARB, VALPROATE, CBMZ No components found for: TOPIRA @RESULTINGLABINFO@ FERRITIN Date Value Ref Range Status 08/25/2020 96 18 - 464 ng/mL Final No results found for: KELLIE, IMMUNOGLOBUL, OLIGOBANDS [facility] HEPATITIS C ANTIBODY Date Value Ref Range Status 08/25/2020 NOT DETECTED Not-Detected NA Final Comment: Patients with DETECTED Hepatitis C Ab results should have a new specimen submitted for supplemental testing with a Hepatitis C Quantitative RNA assay (viral load), if clinically indicated. No results found for: CRP, ANATITER, ANCA FERRITIN: Lab Results Component Value Date FERRITIN 96 08/25/2020 ---- IMPRESSION and PLAN: Diagnosis Plan 1. Parkinson's disease without dyskinesia or fluctuating manifestations carbidopa-levodopa (Sinemet) 25-100 MG tablet rasagiline (Azilect) 0.5 MG tablet 2. REM sleep behavior disorder He is to continue Sinemet to TID. He is to add rasagiline Continue the gabapentin. BREANNA TOLLIVER MD I spent 30 minutes caring for this patient today, reviewing labs, records, seeing the patient, documenting in the record and arranging for studies. @SIGNATURE@ documented in this encounter [facility] 11-18-2023 Telephone encounter Note Recent Visits Date Type Provider Dept 08/29/23 Office Visit Shawanda Costa MD [facility] 07/07/23 Office Visit Shawanda Costa MD [facility] 03/07/23 Office Visit Shawanda Costa MD [facility] 01/02/23 Office Visit Shawanda Costa MD [facility] Showing recent visits within past 365 days and meeting all other requirements Future Appointments Date Type Provider Dept 12/26/23 Appointment Shawanda Costa MD [facility] Showing future appointments within next 90 days and meeting all other requirements Requested Prescriptions Pending Prescriptions Disp Refills loratadine (Claritin) 10 MG tablet 90 tablet 1 Sig: Take 1 tablet (10 mg) by mouth daily. Provider: Shawanda Costa MD Overdue for visit: No If yes - patient scheduled? Yes Most recent labs completed in chart? No Verified pharmacy: yes Verified day(s) supplied: yes Verified refill(s) needed (previous prescription showing no refills in chart): Yes Have you received any controlled medications from any other provider? N/A [facility] 11-18-2023 Miscellaneous Notes Recent Visits Date Type Provider Dept 08/29/23 Office Visit Shawanda Costa MD [facility] 07/07/23 Office Visit Shawanda Costa MD [facility] 03/07/23 Office Visit Shawanda Costa MD [facility] 01/02/23 Office Visit Shawanda Costa MD [facility] Showing recent visits within past 365 days and meeting all other requirements Future Appointments Date Type Provider Dept 12/26/23 Appointment Shawanda Costa MD [facility] Showing future appointments within next 90 days and meeting all other requirements Requested Prescriptions Pending Prescriptions Disp Refills loratadine (Claritin) 10 MG tablet 90 tablet 1 Sig: Take 1 tablet (10 mg) by mouth daily. Provider: Shawanda Costa MD Overdue for visit: No If yes - patient scheduled? Yes Most recent labs completed in chart? No Verified pharmacy: yes Verified day(s) supplied: yes Verified refill(s) needed (previous prescription showing no refills in chart): Yes Have you received any controlled medications from any other provider? N/A documented in this encounter [facility] 11-13-2023 Telephone encounter Note Last OV:08/29/23 Scheduled:12/26/23 [facility] 11-13-2023 Miscellaneous Notes Last OV:08/29/23 Scheduled:12/26/23 documented in this encounter [facility] 10-24-2023 History of Present illness Narrative Images from the original note were not included. [facility] [address] [facility] [address] Dept: [phone] Dept Loc: [phone] Reason for Visit: lesion finger Patient was identified and seen today via Telehealth by agreement and consent. I used the following Telehealth technology: Audio and video capabilities. Patient location: Patient Location: Home. This patient encounter is appropriate and reasonable under the circumstances: . The patient has been advised of the potential risks and limitations of this mode of treatment (including but not limited to the absence of in-person examination) and has agreed to be treated in a remote fashion in spite of them. Any and all of the patient's/patient's family's questions on this issue have been answered and I have made no promises or guarantees to the patient. The patient has also been advised to contact this office for worsening conditions or problems, and seek emergency medical treatment and/or call 911 if the patient deems either necessary. The patient stated that they are currently in the state [facility]. If the patient is a minor, permission has been obtained by the parent or guardian for the patient to receive medical care at this visit. Assessment and Plan 1. Skin lesions - External referral to Dermatology Possible infection. This is best with patient to soak fingers in soap and water for at least 5 minutes then please get dried hands and bacitracin ointment to apply twice daily over the affected area as well as a doxycycline prescription was given to patient. current treatment plan is effective, no change in therapy, orders and follow up as documented in EMR, lab results reviewed with patient, repeat labs ordered prior to next appointment, reviewed compliance with lifestyle measures, reviewed diet, exercise and weight control, reviewed medications and side effects in detail Return visit in 2 weeks. Subjective HPI this is a 73-year-old gentleman who states that he started having blisters or lesions on the back of his fingers. This started approximately 2 months ago on the middle finger and then started spreading to the ring finger. They are painful. No new medications except for the Sinemet. But the lesions are just localized to the hands. Per patient they are taking a while to heal. He had no evidence s of any bruising. Her injuries Review of Systems Constitutional: Negative. Negative for activity change, appetite change and fever. HENT: Negative. Negative for congestion. Eyes: Negative. Negative for discharge. Respiratory: Negative. Negative for chest tightness. Cardiovascular: Negative. Gastrointestinal: Negative. Endocrine: Negative. Negative for cold intolerance. Genitourinary: Negative for difficulty urinating. Musculoskeletal: Negative. Neurological: Negative. Negative for dizziness, facial asymmetry and headaches. Hematological: Negative. Allergies Allergen Reactions Pollen Extract Seasonal allergies. Ropinirole Constipation and sleepiness Outpatient Medications Prior to Visit Medication Sig Dispense Refill carbidopa-levodopa (Sinemet) 25-100 MG tablet Take 1 tablet by mouth 3 times daily. 90 tablet 11 carbidopa-levodopa (Sinemet) 25-100 MG tablet Take 1 tablet by mouth in the morning and 1 tablet at noon and 1 tablet in the evening and 1 tablet before bedtime. 360 tablet 2 clonazePAM (KlonoPIN) 0.5 MG tablet Take 0.5 tablets (0.25 mg) by mouth Daily as needed for anxiety. 8 tablet 0 cyclobenzaprine (Flexeril) 10 MG tablet Take 1 tablet (10 mg) by mouth Nightly as needed for muscle spasms. 30 tablet 1 gabapentin (Neurontin) 400 MG capsule Take 5 before bedime 150 capsule 3 loratadine (Claritin) 10 MG tablet Take 1 tablet (10 mg) by mouth daily. 90 tablet 1 meloxicam (Mobic) 15 MG tablet Take by mouth Daily as needed. methylPREDNISolone (Medrol Dospak) 4 MG tablets tamsulosin (Flomax) 0.4 MG 24 hr capsule Take 1 capsule (0.4 mg) by mouth daily. 90 capsule 1 telmisartan (MIcarDIS) 20 MG tablet Take 1 tablet (20 mg) by mouth daily. 90 tablet 1 fluticasone (Flonase) 50 MCG/ACT nasal spray Administer 1 spray into each nostril daily. (Patient not taking: Reported on 09/20/2023) 16 g 3 No facility-administered medications prior to visit. 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 Orthostatic hypotension MDD (major depressive disorder) Dyslipidemia Ascending aortic aneurysm (HCC) Renal cyst, right Essential hypertension Gram-negative sepsis, unspecified (HCC) Lightheadedness Acute cystitis without hematuria Elevated troponin Hyponatremia Bipolar II disorder (CMS/HCC) (HCC) Past Medical History: Diagnosis Date 2019 novel coronavirus disease (COVID-19) 02/18/2023 Abnormal EKG Allergic 01/15/1992 Anxiety Arthritis 02/13/2023 Enlarged prostate Hyperlipidemia Hypertension REM sleep behavior disorder Sepsis (HCC) Social History Tobacco Use Smoking status: Former Packs/day: 1.00 Years: 25.00 Additional pack years: 0.00 Total pack years: 25.00 Types: Cigarettes Start date: 11/26/1984 Quit date: 11/28/2008 Years since quittin.9 Smokeless tobacco: Never Tobacco comments: Current, daily use of nicotene pouches Substance Use Topics Alcohol use: Not Currently Past Surgical History: Procedure Laterality Date CYST REMOVAL 1970 Tailbone cyst CYSTOSCOPY 02/12/2023 C&P with stent KIDNEY SURGERY 02/15/2023 Family History Problem Relation Name Age of Onset Parkinsonism Mother Juhi Rodriguez High Blood Pressure Mother Juhi Rodriguez Depression Mother Juhi Rodriguez Hearing loss Mother Juhi Rodriguez Fainting Mother Juhi Rodriguez Hypertension Mother Juhi Rodriguez Mental illness Mother Juhi Rodriguez Heart disease Father Nery Rodriguez Sr. Bipolar disorder Sister Bailey Rodriguez Mental illness Sister Bailey Rodriguez Health Maintenance Topic Date Due Diabetes Screening Never done IPV Vaccines (2 of 3 - Adult catch-up series) 09/13/1973 Hepatitis A Vaccines (2 of 2 - Risk 2-dose series) 01/16/1997 RSV Immunization aged 60 or older (1 - 1-dose 60+ series) Never done Hepatitis B Vaccines (1 of 3 - Risk 3-dose series) Never done Zoster Vaccines (2 of 3) 12/24/2012 Colorectal Cancer Screening 08/28/2021 COVID-19 Vaccine ( season) 2023 Depresssion Monitoring 02/27/2024 Lung Cancer Screening 05/22/2024 Medicare Annual Wellness (AWV) 09/28/2024 Lipid Panel 03/18/2027 DTaP/Tdap/Td Vaccines (3 - Td or Tdap) 01/20/2030 Influenza Vaccine Completed Pneumococcal Vaccine: 65+ Years Completed Hepatitis C Screening Completed RSV Immunization under 20 Months Aged Out HIB Vaccines Aged Out Meningococcal Vaccine Aged Out Rotavirus Vaccines Aged Out HPV Vaccines Aged Out Objective There were no vitals taken for this visit. Physical Exam Data Reviewed and Summarized Labs: Lab Results Component Value Date WBC 10.4 02/14/2023 HGB 10.9 (L) 02/14/2023 HCT 31.8 (L) 02/14/2023 PLT 199 02/14/2023 TSH 1.092 12/29/2022 PSA 3.958 09/16/2021 INR 1.0 08/25/2020 Lab Results Component Value Date NA 135 02/14/2023 K 3.7 02/14/2023 CL 106 02/14/2023 CO2 26 02/14/2023 BUN 25 (H) 02/14/2023 CREATININE 0.93 02/14/2023 GLUCOSE 117 (H) 02/14/2023 CALCIUM 8.1 (L) 02/14/2023 PROT 5.6 (L) 02/14/2023 BILITOT 0.3 02/14/2023 ALKPHOS 63 02/14/2023 AST 39 02/14/2023 ALT 30 02/14/2023 @GLUCOSELAB@ Lab Results Component Value Date CHOL 217 (A) 03/18/2022 CHOL 197 09/16/2021 CHOL 170 05/17/2021 Lab Results Component Value Date TRIG 93 03/18/2022 TRIG 88 09/16/2021 TRIG 79 05/17/2021 Lab Results Component Value Date HDL 55 03/18/2022 HDL 50 09/16/2021 HDL 42 05/17/2021 No results found for: LDLCALC No results found for: VLDL Lab Results Component Value Date CHOLHDLRATIO 4 03/18/2022 CHOLHDLRATIO 4 09/16/2021 CHOLHDLRATIO 4 05/17/2021 Imaging/Testing: MR abdomen w and wo contrast Narrative: Patient Name: NERY RODRIGUEZ : 1950 Exam Date/Time: 07/21/2023 12:09 Procedure: MR ABDOMEN W AND WO CONTRAST Ordering Provider: QUINTERO JOSHUA Reason For Exam: Renal mass/cyst, indeterminate MRI ABDOMEN WITHOUT AND WITH CONTRAST (WITH ATTENTION TO THE KIDNEYS): CLINICAL INDICATION: Focal renal mass. TECHNIQUE: Multiplanar multisequence MR images were performed through the abdomen, including diffusion-weighted images and dynamic contrast-enhanced T1 sequence during injection of 10 mL of Gadavist contrast. Comparison: 07/18/2022, 11/15/2021 FINDINGS: Kidneys: Symmetric size and enhancement. No hydronephrosis. Renal Lesions: Simple right renal cysts, not requiring imaging follow-up. There is redemonstration of an enhancing lesion in the interpolar right kidney measuring approximately 2.0 x 2.0 cm, previously 1.7 x 1.4 cm. The renal vein is patent. Lymphadenopathy:None Liver: The liver is normal in size and contour. There is no drop in signal on in-phase or opposed-phase images to suggest fat or iron deposition. Numerous simple cysts are present throughout both hepatic lobes. Two septated cysts are again present in the left hepatic lobe Biliary tree: Normal gallbladder. No biliary dilatation. Spleen: Normal Adrenals:Normal Pancreas: Homogeneous enhancement without mass or peripancreatic fluid. No pancreatic duct dilation. Aorta: Normal caliber Visualized Osseous structures: Normal Other: Diverticulosis in the visualized colon. Impression: 1. Enhancing right renal lesion concerning for neoplasm, slightly increased in size dating back to 11/15/2021. 2. Multiple liver cysts, some of which contain thin septations. 3. Diverticulosis. Report Dictated on Electronically Signed By: Daryl Monzon MD Electronically Signed Date/Time: 07/23/2023 6:50 PM EDT Shawanda Costa MD documented in this encounter [facility] 09-20-2023 History of Present illness Narrative [facility] [address] [facility] [address] Dept: [phone] Dept Loc: [phone] Visit type: Established Patient Reason for Visit: Follow-up and Tremors Assessment and Plan 1. Parkinson's disease without dyskinesia or fluctuating manifestations - carbidopa-levodopa (Sinemet) 25-100 MG tablet; Take 1 tablet by mouth in the morning and 1 tablet at noon and 1 tablet in the evening and 1 tablet before bedtime., Starting 09/20/2023, Until Mon12/19/2023, Normal 2. REM sleep behavior disorder Subjective HPI: He reports that he has good days and bad days. Carbidopa-levodopa has helped. The ropinirole causes sleepiness and constipation. He reports that he is exercising every day. He is slobbering. He has mild imbalance miguel if he changes directions. He is stooping. He is still having acting out of dreams. He is not getting out of bed. REVIEW OF SYSTEMS: Review of Systems Constitutional: Negative for appetite change, chills, diaphoresis, fatigue, fever and unexpected weight change. HENT: Negative for dental problem and mouth sores. Eyes: Negative for discharge and itching. Respiratory: Negative for chest tightness and shortness of breath. Cardiovascular: Negative for chest pain, palpitations and leg swelling. Gastrointestinal: Negative for abdominal pain, nausea, rectal pain and vomiting. Endocrine: Negative for polydipsia, polyphagia and polyuria. Genitourinary: Negative for decreased urine volume, flank pain and genital sores. Musculoskeletal: Positive for back pain. Negative for arthralgias and neck pain. Skin: Negative for color change. Allergic/Immunologic: Negative for food allergies and immunocompromised state. Neurological: Negative for dizziness, syncope, weakness, light-headedness and headaches. Hematological: Negative for adenopathy. Does not bruise/bleed easily. Psychiatric/Behavioral: Negative for agitation, behavioral problems, confusion, decreased concentration, sleep disturbance and suicidal ideas. Allergies Allergen Reactions Pollen Extract Seasonal allergies. Ropinirole Constipation and sleepiness Current Outpatient Medications: carbidopa-levodopa (Sinemet) 25-100 MG tablet, Take 1 tablet by mouth 3 times daily., Disp: 90 tablet, Rfl: 11 clonazePAM (KlonoPIN) 0.5 MG tablet, Take 0.5 tablets (0.25 mg) by mouth Daily as needed for anxiety., Disp: 8 tablet, Rfl: 0 cyclobenzaprine (Flexeril) 10 MG tablet, Take 1 tablet (10 mg) by mouth Nightly as needed for muscle spasms., Disp: 30 tablet, Rfl: 1 gabapentin (Neurontin) 400 MG capsule, Take 5 before bedime, Disp: 150 capsule, Rfl: 3 loratadine (Claritin) 10 MG tablet, Take 1 tablet (10 mg) by mouth daily., Disp: 90 tablet, Rfl: 1 meloxicam (Mobic) 15 MG tablet, Take by mouth Daily as needed., Disp: , Rfl: methylPREDNISolone (Medrol Dospak) 4 MG tablets, , Disp: , Rfl: tamsulosin (Flomax) 0.4 MG 24 hr capsule, Take 1 capsule (0.4 mg) by mouth daily., Disp: 90 capsule, Rfl: 1 telmisartan (MIcarDIS) 20 MG tablet, Take 1 tablet (20 mg) by mouth daily., Disp: 90 tablet, Rfl: 1 carbidopa-levodopa (Sinemet) 25-100 MG tablet, Take 1 tablet by mouth in the morning and 1 tablet at noon and 1 tablet in the evening and 1 tablet before bedtime., Disp: 360 tablet, Rfl: 2 fluticasone (Flonase) 50 MCG/ACT nasal spray, Administer 1 spray into each nostril daily. (Patient not taking: Reported on 09/20/2023), Disp: 16 g, Rfl: 3 Past Medical History: Diagnosis Date 2019 novel coronavirus disease (COVID-19) 02/18/2023 Abnormal EKG Allergic 01/15/1992 Anxiety Arthritis 02/13/2023 Enlarged prostate Hyperlipidemia Hypertension REM sleep behavior disorder Sepsis (HCC) Social History Tobacco Use Smoking status: Former Packs/day: 1.00 Years: 25.00 Additional pack years: 0.00 Total pack years: 25.00 Types: Cigarettes Start date: 11/26/1984 Quit date: 11/28/2008 Years since quittin.8 Smokeless tobacco: Never Tobacco comments: Current, daily use of nicotene pouches Substance Use Topics Alcohol use: Not Currently Past Surgical History: Procedure Laterality Date CYST REMOVAL 1970 Tailbone cyst CYSTOSCOPY 02/12/2023 C&P with stent KIDNEY SURGERY 02/15/2023 Family History Problem Relation Name Age of Onset Parkinsonism Mother Juhi Rodriguez High Blood Pressure Mother Juhi Rodriguez Depression Mother Juhi Rodriguez Hearing loss Mother Juhi Rodriguez Fainting Mother Juhi Rodriguez Hypertension Mother Juhi Rodriguez Mental illness Mother Juhi Rodriguez Heart disease Father Nery Michael Jewell. Bipolar disorder Sister Bailey Rodriguez Mental illness Sister Bailey Rodriguez Objective Vitals: BP 129/82 (BP Location: Left arm) Pulse 78 Wt 235 lb (107 kg) BMI 32.78 kg/m General Appearance: Patient is in no apparent distress. Head is normocephalic, atraumatic Cardiovascular: Regular rate and rhythm. No heart murmurs. No carotid bruit Neurologic: Mentation: Alert and oriented x 3 to person, place and time. Speech and Language: Speech and language normal Concentration and Attention: Concentration normal Memory: Memory normal Fund of Knowledge: Fund of knowledge normal Cranial Nerves: II, III, IV, V, , VII, VIII, IX, X, XI, XII examined and were intact. Masked facies. ?lower up gaze. Head titubation Motor: Strength: Strength 5 out of 5 with normal tone Alternating Movements: Normal Cogwheel Rigidity: None Tone: Tone is normal Tremor / Involuntary Movements: Left>right, more torsional than the last visit. Deep Tendon Reflexes: 1 out of 4 symmetrical in all four limbs. Coordination: Normal coordination upper and lower extremities Gait and Station: Station is normal. Gait is normal Data Reviewed and Summarized DIAGNOSTIC TESTING CBC: Lab Results Component Value Date WBC 10.4 02/14/2023 RBC 3.44 (L) 02/14/2023 HGB 10.9 (L) 02/14/2023 HCT 31.8 (L) 02/14/2023 MCV 92.5 02/14/2023 MCH 31.8 02/14/2023 MCHC 34.3 02/14/2023 RDW 13.0 02/14/2023 PLT 199 02/14/2023 MPV 8.3 02/14/2023 CMP: Lab Results Component Value Date NA 135 02/14/2023 K 3.7 02/14/2023 CL 106 02/14/2023 CO2 26 02/14/2023 BUN 25 (H) 02/14/2023 CREATININE 0.93 02/14/2023 CREATININE 0.89 03/18/2022 GLUCOSE 117 (H) 02/14/2023 PROT 5.6 (L) 02/14/2023 CALCIUM 8.1 (L) 02/14/2023 BILITOT 0.3 02/14/2023 ALKPHOS 63 02/14/2023 AST 39 02/14/2023 ALT 30 02/14/2023 BMP: Lab Results Component Value Date NA 135 02/14/2023 K 3.7 02/14/2023 CL 106 02/14/2023 CO2 26 02/14/2023 BUN 25 (H) 02/14/2023 CREATININE 0.93 02/14/2023 CREATININE 0.89 03/18/2022 CALCIUM 8.1 (L) 02/14/2023 GLUCOSE 117 (H) 02/14/2023 PT/INR: Lab Results Component Value Date PROTIME 10.8 08/25/2020 INR 1.0 08/25/2020 PTT: No results found for: APTT, PTT[APTT} FLP: Lab Results Component Value Date TRIG 93 03/18/2022 HDL 55 03/18/2022 TSH: Lab Results Component Value Date TSH 1.092 12/29/2022 VITAMIN B12: No results found for: [id number] No results found for: PHENYTOIN, PHENOBARB, VALPROATE, CBMZ No components found for: TOPIRA @RESULTINGLABINFO@ FERRITIN Date Value Ref Range Status 08/25/2020 96 18 - 464 ng/mL Final No results found for: KELLIE, IMMUNOGLOBUL, OLIGOBANDS [facility] HEPATITIS C ANTIBODY Date Value Ref Range Status 08/25/2020 NOT DETECTED Not-Detected NA Final Comment: Patients with DETECTED Hepatitis C Ab results should have a new specimen submitted for supplemental testing with a Hepatitis C Quantitative RNA assay (viral load), if clinically indicated. No results found for: CRP, ANATITER, ANCA FERRITIN: Lab Results Component Value Date FERRITIN 96 08/25/2020 ---- MR abdomen w and wo contrast Narrative: Patient Name: NERY RODRIGUEZ : 1950 Exam Date/Time: 07/21/2023 12:09 Procedure: MR ABDOMEN W AND WO CONTRAST Ordering Provider: QUINTERO JOSHUA Reason For Exam: Renal mass/cyst, indeterminate MRI ABDOMEN WITHOUT AND WITH CONTRAST (WITH ATTENTION TO THE KIDNEYS): CLINICAL INDICATION: Focal renal mass. TECHNIQUE: Multiplanar multisequence MR images were performed through the abdomen, including diffusion-weighted images and dynamic contrast-enhanced T1 sequence during injection of 10 mL of Gadavist contrast. Comparison: 07/18/2022, 11/15/2021 FINDINGS: Kidneys: Symmetric size and enhancement. No hydronephrosis. Renal Lesions: Simple right renal cysts, not requiring imaging follow-up. There is redemonstration of an enhancing lesion in the interpolar right kidney measuring approximately 2.0 x 2.0 cm, previously 1.7 x 1.4 cm. The renal vein is patent. Lymphadenopathy:None Liver: The liver is normal in size and contour. There is no drop in signal on in-phase or opposed-phase images to suggest fat or iron deposition. Numerous simple cysts are present throughout both hepatic lobes. Two septated cysts are again present in the left hepatic lobe Biliary tree: Normal gallbladder. No biliary dilatation. Spleen: Normal Adrenals:Normal Pancreas: Homogeneous enhancement without mass or peripancreatic fluid. No pancreatic duct dilation. Aorta: Normal caliber Visualized Osseous structures: Normal Other: Diverticulosis in the visualized colon. Impression: 1. Enhancing right renal lesion concerning for neoplasm, slightly increased in size dating back to 11/15/2021. 2. Multiple liver cysts, some of which contain thin septations. 3. Diverticulosis. Report Dictated on Electronically Signed By: Daryl Monzon MD Electronically Signed Date/Time: 07/23/2023 6:50 PM EDT IMPRESSION and PLAN: Diagnosis Plan 1. Parkinson's disease without dyskinesia or fluctuating manifestations carbidopa-levodopa (Sinemet) 25-100 MG tablet 2. REM sleep behavior disorder He is to increase the Sinemet to 4 times a day. Continue the gabapentin. BREANNA TOLLIVER MD I spent 30 minutes caring for this patient today, reviewing labs, records, seeing the patient, documenting in the record and arranging for studies. @SIGNATURE@ documented in this encounter [facility] [employer] 09-19-2023 Telephone encounter Note Last OV:08/29/23 Scheduled:12/26/23 [facility] 09-19-2023 Miscellaneous Notes Last OV:08/29/23 Scheduled:12/26/23 documented in this encounter [facility] 09-12-2023 Telephone encounter Note STEFANIE [id number] : Could you please send a new prescription for Telmisartan (20 mg 1xdaily) to the [facility] in [place] on [address] ? I have enough for 3 more days, and there are no refills left on the last prescription. Thanks! Nery Michael [facility] 09-12-2023 Miscellaneous Notes STEFANIE 08.29.23Aug12.26.23 : Could you please send a new prescription for Telmisartan (20 mg 1xdaily) to the [facility] in [place] on [address]? I have enough for 3 more days, and there are no refills left on the last prescription. Thanks! Nery Michael documented in this encounter [facility] 09-06-2023 History of Present illness Narrative Images from the original note were not included. [facility] AT [address] [place] [address] Dept: [phone] Dept PHYSICAL THERAPY RE-EVALUATION/DISCHARGE Patient Name: Nery Rodriguez : 1950 Date of Service: 09/06/2023 Referring Provider: Milana Hussein NP Visit #: 9 Diagnosis: Chronic thoracic back pain, unspecified back pain laterality Reason for referral/Mechanism of injury: 08/08/23: Pt presents for evaluation of pain in thoracic spine region. He reports h/o muscle spasm in R intrascapular region when working in his 20s/30s. He reports in the past decade, pain has worsened. Lately, if he stands ~30 minutes, he begins to feel the pain, by an hour it becomes unbearable. Pt also notes in the past few months, he will find his shoulders hunched. He also notes low back pain from stooping and reaching over. Note h/o of right renal mass. He sees neurologist for tremors; may have Parkinson's, but not diagnosed. Patient Preferences: Nery Precautions/Red Flags: None Subjective General Comments: Pt reports feeling improvement. He states he no longer has pain in R scapular region, although feels tension at time. He continues HEP and uses his personal Thera-cane that he got recently. He notes it was very noticeable how much better my back was last week while cleaning his house. He hasn't tried hour+ long standing, which has always been an aggravating factor. He is more aware of his posture. He reports feeling 75% improvement overall. Chief Complaint: R intrascapular region pain Pain: Current: 0/10 Best: 0/10 Worst: 10/2508/08/23 Level of Function: pain with house cleaning, ADL's, standing, walking. Rides stationary bike 30 minutes/day, 5 days/wk. Avoids long because of pain. Patient's Stated Goal: To be able to stand & walk 2-3 hours without back pain in order for him and his to go to events Objective Upper Extremity Strength Date 08/08/2023 09/06/23 Right Left Right Left Shoulder Flexion 5/5 5/5 Shoulder Abduction 4+/5 4+/5 5/5 5/5 Shoulder External Rotation (ER) 5/5 5/5 Shoulder Internal Rotation (IR) 5/5 5/5 Elbow Flexion 5/5 5/5 Elbow Extension 5/5 5/5 Scapular Strength Date 08/08/23 09/06/23 Right Left Right Left Lower Trapezius 3+/5 3-/5 3+/5 4-/5 Middle Trapezius 3/5 3-/5 3+/5 3+/5 Rhomboids 3+/5 3/5 4-/5 4-/5 Joint Mobilization: 08/08/2023 = Mild hypomobility mid thoracic spine, Moderate hypomobility R ribs at LESLIE. Palpation: 08/08/2023 = Concordant tightness and tenderness R rhomboids, intercostals, all moderate. Denies pain elsewhere in upper back. 09/06/23 = Tightness noted in rhomboids, however pt denies tenderness t/o R scapular region. QuickDASH: 08/08/2023 = 20% disability 09/06/23 = 5% disability Assessment 73 yo male has participated in 1 month of PT for intrascapular pain. Pain of </=7/10 has improved to </=1/10. He demos increased strength in shoulders and scapulae, demos increased soft tissue mobility, denies tenderness along tight musculature today, and has reduced disability on QuickDASH. He has been able to standing and walk olga hour, as well as clean his house without pain. He has not tried longer events of standing/walking. He has met 5/5 PT goals, he's independent in HEP, has own Theracane for self-massage/release, and has his own rowing machine he recently purchased. Goals Resolved General/Ortho Patient will be independent with updated HEP. (Completed) Start: 08/08/23 Expected End: 09/17/23 Resolved: 09/06/23 Patient will report decreased pain in R thoracic region from 7/10 at worst to </=4/10 in the past week in order to increase standing and walking tolerance. (Completed) Start: 08/08/23 Expected End: 09/17/23 Resolved: 09/06/23 Patient will increase strength in B scapular musculature to 3+/5 for increased postural strength. (Completed) Start: 08/08/23 Expected End: 09/17/23 Resolved: 09/06/23 Functional Outcome Measure: Patient will reduce QuickDASH score from 20% disability to </=8% disability. (Completed) Start: 08/08/23 Expected End: 09/17/23 Resolved: 09/06/23 Patient will report reduced tenderness of muscles in R intrascapular region from moderate to slight-mild to demo increased soft tissue mobility. (Completed) Start: 08/08/23 Expected End: 09/17/23 Resolved: 09/06/23 Plan Discharge Treatment Therapeutic Activity # of Activities: 1 Therapeutic Activity 1: reassessment, goals, measures, POC. Provided pt with updated theraband for increased resistance in HEP. Pt denies further tx this date. Time Entry Total Treatment Time Start Time: 1324 Stop Time: 1347 Time Calculation (min): 23 min PT Therapeutic Procedures Time Entry Therapeutic Activity Time Entry: 23 Gem Schilling PT documented in this encounter [facility] 09-04-2023 History of Present illness Narrative Images from the original note were not included. [facility] AT [place] [address] [place] [address] Dept: [phone] Dept PHYSICAL THERAPY TREATMENT Patient Name: Nery Rodriguez : 1950 Date of Service: 09/04/2023 Referring Provider: Milana Hussein NP Visit #: 8 Diagnosis: Chronic thoracic back pain, unspecified back pain laterality Reason for referral/Mechanism of injury: 08/08/23: Pt presents for evaluation of pain in thoracic spine region. He reports h/o muscle spasm in R intrascapular region when working in his 20s/30s. He reports in the past decade, pain has worsened. Lately, if he stands ~30 minutes, he begins to feel the pain, by an hour it becomes unbearable. Pt also notes in the past few months, he will find his shoulders hunched. He also notes low back pain from stooping and reaching over. Note h/o of right renal mass. He sees neurologist for tremors; may have Parkinson's, but not diagnosed. Patient Preferences: Nery Precautions/Red Flags: None Subjective Pt reported some muscle tension in upper R thoracic region today. He is working on improving his posture and sometimes feels he might over do it. Compliance with HEP: Yes Objective Objective measurements not taken today. Treatment Therapeutic Exercise # of Activities: 6 Therapeutic Exercise Activity 1: HEP 08/08 Activity 1 Comment: pulldowns L2TB, rows L3-TB, thoracic extension over chair, s/l shoulder sweep, quadruped UE flexion Therapeutic Exercise Activity 2: warm up Activity 2 Comment: UBE L1 2.5'/2.5' with emphasis on postural awareness- added Lumbar towel roll to help facilitate proper posture. Therapeutic Exercise Acitivity 3: postural strengthening Activity 3 Comment: shoulder flexion and ABD with 2# DB 2x12, standing against wall with ball behind head Therapeutic Exercise Activity 4: prone Activity 4 Comment: shoulder I's Y's & T's x10 1# 2x10 IASTM Location: R side scapular musculature Body Position: Sitting Assessment Skilled physical therapy interventions utilized to improve patient s impairments and work towards established goals. Patient response to treatment: Pt tolerated exercise progressions well and did not experience increased pain with activity. Mild tightness in R scapular region improved with STM. Patient will benefit from continued physical therapy to improve postural strength. The rationale for today s treatment was explained to the patient. Verbal cues were provided for correct form with all exercises. Advised patient to continue with Home Exercise Program (HEP). Goals General/Ortho Patient will be independent with updated HEP. (Progressing) Start: 08/08/23 Expected End: 09/17/23 Patient will report decreased pain in R thoracic region from 7/10 at worst to </=4/10 in the past week in order to increase standing and walking tolerance. (Progressing) Start: 08/08/23 Expected End: 09/17/23 Patient will increase strength in B scapular musculature to 3+/5 for increased postural strength. (Progressing) Start: 08/08/23 Expected End: 09/17/23 Functional Outcome Measure: Patient will reduce QuickDASH score from 20% disability to </=8% disability. (Progressing) Start: 08/08/23 Expected End: 09/17/23 Patient will report reduced tenderness of muscles in R intrascapular region from moderate to slight-mild to demo increased soft tissue mobility. (Progressing) Start: 08/08/23 Expected End: 09/17/23 Plan Plan for next session: Progress strengthening activity as able. Time Entry Total Treatment Time Start Time: 1103 Stop Time: 1130 Time Calculation (min): 27 min PT Therapeutic Procedures Time Entry Therapeutic Exercise Time Entry: 18 Manual Therapy Time Entry: 8 Scott Grider PTA documented in this encounter [facility] [employer] 08-30-2023 History of Present illness Narrative Images from the original note were not included. [facility] AT [place] [address] [place] [address] Dept: [phone] Dept PHYSICAL THERAPY TREATMENT Patient Name: Nery Rodriguez : 1950 Date of Service: 08/30/2023 Referring Provider: Milana Hussein NP Visit #: 7 Diagnosis: Chronic thoracic back pain, unspecified back pain laterality Reason for referral/Mechanism of injury: 08/08/23: Pt presents for evaluation of pain in thoracic spine region. He reports h/o muscle spasm in R intrascapular region when working in his 20s/30s. He reports in the past decade, pain has worsened. Lately, if he stands ~30 minutes, he begins to feel the pain, by an hour it becomes unbearable. Pt also notes in the past few months, he will find his shoulders hunched. He also notes low back pain from stooping and reaching over. Note h/o of right renal mass. He sees neurologist for tremors; may have Parkinson's, but not diagnosed. Patient Preferences: Nery Precautions/Red Flags: None Subjective Pt denies having pain this date. Compliance with HEP: Yes Objective Objective measurements not taken today. Treatment Therapeutic Exercise Therapeutic Exercise Activity 1: HEP 08/08 Activity 1 Comment: pulldowns L2TB, rows L3-TB, thoracic extension over chair, s/l shoulder sweep, quadruped UE flexion Therapeutic Exercise Activity 2: warm up Activity 2 Comment: UBE L1 2'/2' with emphasis on postural awareness- added Lumbar towel roll to help facilitate proper posture. Therapeutic Exercise Acitivity 3: postural strengthening Activity 3 Comment: shoulder flexion and ABD with 2# DB 2x12, standing against wall with ball behind head Therapeutic Exercise Activity 4: prone Activity 4 Comment: shoulder I's Y's & T's x10 no weight each Therapeutic Exercise Activity 5: Spider walks Activity 5 Comment: RTB x5 up/down IASTM Location: R side scapular musculature Body Position: Prone Joint Mobilization Location: C7, T1 R side PA Body Position: Prone Comments: grade II Assessment Skilled physical therapy interventions utilized to improve patient s impairments and work towards established goals. Patient response to treatment: Pt performed ex w/ focus on scapular strengthening and stabilization. Progressed select ex's by reps, initiated resisted spider walks. Pt romi all ex well w/out incident. Performed STM to thoracoscapular region, noted min mm tension. Patient will benefit from continued physical therapy to achieve goals. The rationale for today s treatment was explained to the patient. Verbal cues were provided for correct form with all exercises. Advised patient to continue with Home Exercise Program (HEP). Goals General/Ortho Patient will be independent with updated HEP. (Progressing) Start: 08/08/23 Expected End: 09/17/23 Patient will report decreased pain in R thoracic region from 7/10 at worst to </=4/10 in the past week in order to increase standing and walking tolerance. (Progressing) Start: 08/08/23 Expected End: 09/17/23 Patient will increase strength in B scapular musculature to 3+/5 for increased postural strength. (Progressing) Start: 08/08/23 Expected End: 09/17/23 Functional Outcome Measure: Patient will reduce QuickDASH score from 20% disability to </=8% disability. (Progressing) Start: 08/08/23 Expected End: 09/17/23 Patient will report reduced tenderness of muscles in R intrascapular region from moderate to slight-mild to demo increased soft tissue mobility. (Progressing) Start: 08/08/23 Expected End: 09/17/23 Plan Plan for next session: Progress scapular strengthening to pt romi. Time Entry Total Treatment Time Start Time: 1100 Stop Time: 1132 Time Calculation (min): 32 min PT Therapeutic Procedures Time Entry Therapeutic Exercise Time Entry: 22 Manual Therapy Time Entry: 10 Tracey Dumont PTA documented in this encounter [facility] 08-29-2023 History of Present illness Narrative Images from the original note were not included. [facility] [address] [place] [address] [address] [facility] [address] Dept: [phone] Dept Chief Complaint: Nery Rodriguez is an 73 y.o. male here for an annual wellness visit. Assessment/Plan : Problem List Items Addressed This Visit None Visit Diagnoses Routine general medical examination at health care facility - Primary I have reviewed and reconciled the medication list with the patient today. Current Outpatient Medications Medication Sig Dispense Refill carbidopa-levodopa (Sinemet) 25-100 MG tablet Take 1 tablet by mouth 3 times daily. 90 tablet 11 clonazePAM (KlonoPIN) 0.5 MG tablet Take 0.5 tablets (0.25 mg) by mouth Daily as needed for anxiety. 8 tablet 0 cyclobenzaprine (Flexeril) 10 MG tablet Take 1 tablet (10 mg) by mouth Nightly as needed for muscle spasms. 30 tablet 1 fluticasone (Flonase) 50 MCG/ACT nasal spray Administer 1 spray into each nostril daily. 16 g 3 gabapentin (Neurontin) 400 MG capsule Take 5 before bedime 150 capsule 3 loratadine (Claritin) 10 MG tablet Take 1 tablet (10 mg) by mouth daily. 90 tablet 1 meloxicam (Mobic) 15 MG tablet Take by mouth Daily as needed. methylPREDNISolone (Medrol Dospak) 4 MG tablets Take as directed on package. 21 tablet 0 tamsulosin (Flomax) 0.4 MG 24 hr capsule Take 1 capsule (0.4 mg) by mouth daily. 90 capsule 1 telmisartan (MIcarDIS) 20 MG tablet Take 1 tablet (20 mg) by mouth daily. 90 tablet 1 No current facility-administered medications for this visit. Also reviewed during this visit: The following health maintenance schedule was reviewed with the patient and provided in printed form in the after visit summary: Health Maintenance Topic Date Due Medicare Annual Wellness (AWV) Never done Diabetes Screening Never done IPV Vaccines (2 of 3 - Adult catch-up series) 09/13/1973 Hepatitis A Vaccines (2 of 2 - Risk 2-dose series) 01/16/1997 RSV Immunization aged 60 or older (1 - 1-dose 60+ series) Never done Hepatitis B Vaccines (1 of 3 - Risk 3-dose series) Never done Zoster Vaccines (2 of 3) 12/24/2012 Colorectal Cancer Screening 08/28/2021 COVID-19 Vaccine (2022- season) 2023 Depresssion Monitoring 02/27/2024 Lung Cancer Screening 05/22/2024 Lipid Panel 03/18/2027 DTaP/Tdap/Td Vaccines (3 - Td or Tdap) 01/20/2030 Influenza Vaccine Completed Pneumococcal Vaccine: 65+ Years Completed Hepatitis C Screening Completed RSV Immunization under 20 Months Aged Out HIB Vaccines Aged Out Meningococcal Vaccine Aged Out Rotavirus Vaccines Aged Out HPV Vaccines Aged Out List of current healthcare providers: Patient Care Team: Shawanda Costa MD as PCP - General Shanel Parada RN as Nurse Navigator Tanmay Elliott DO as Psychiatrist (Psychiatry) Conner Quintero MD as Surgeon (Urology) Igor Subramanian MD as Surgeon (Urology) No orders of the defined types were placed in this encounter. Subjective : Review of Systems Constitutional: Negative. Negative for activity change, appetite change and fever. HENT: Negative. Negative for congestion. Eyes: Negative. Negative for discharge. Respiratory: Negative. Negative for chest tightness. Cardiovascular: Negative. Gastrointestinal: Negative. Endocrine: Negative. Negative for cold intolerance. Genitourinary: Negative for difficulty urinating. Musculoskeletal: Negative. Neurological: Negative. Negative for dizziness, facial asymmetry and headaches. Hematological: Negative. Physical Exam Vitals and nursing note reviewed. Constitutional: Appearance: Normal appearance. HENT: Head: Normocephalic and atraumatic. Nose: No congestion or rhinorrhea. Mouth/Throat: Mouth: Mucous membranes are moist. Pharynx: Oropharynx is clear. No posterior oropharyngeal erythema. Eyes: Extraocular Movements: Extraocular movements intact. Conjunctiva/sclera: Conjunctivae normal. Pupils: Pupils are equal, round, and reactive to light. Cardiovascular: Pulses: Normal pulses. Heart sounds: Normal heart sounds. No murmur heard. Pulmonary: Effort: Pulmonary effort is normal. No respiratory distress. Breath sounds: Normal breath sounds. No wheezing. Abdominal: General: Abdomen is flat. Bowel sounds are normal. Palpations: Abdomen is soft. Tenderness: There is no abdominal tenderness. Musculoskeletal: General: No swelling. Cervical back: Normal range of motion. Skin: General: Skin is warm and dry. Neurological: General: No focal deficit present. Mental Status: He is alert and oriented to person, place, and time. Mental status is at baseline. Psychiatric: Mood and Affect: Mood normal. Over the past 2 weeks, how often have you been bothered by any of the following problems? Trouble falling or staying asleep, or sleeping too much: Not at all Feeling tired or having little energy: Not at all Poor appetite or overeating: Not at all Feeling bad about yourself - or that you are a failure or have let yourself or your family down: Not at all Trouble concentrating on things, such as reading the newspaper or watching television: Not at all Moving or speaking so slowly that other people could have noticed? Or the opposite - being so fidgety or restless that you have been moving around a lot more than usual.: Not at all Thoughts that you would be better off or hurting yourself in some way: Not at all Patient Health Questionnaire-9 Score: 0 Health Risk Assessment: General: General In general, how would you say your health is?: (P) Good In the past 7 days, have you experienced any of the following: New or Increased Pain, New or Increased Fatigue, Loneliness, Social Isolation, Stress or Anger?: (P) No Do you get the social and emotional suppport you need?: (P) Yes Health Habits/Nutrition: Health Habits / Nutrition On average, how many days per week do you engage in moderate to strenous exercise (like a brisk walk)?: (P) 5 days On average, how man minutes do you engage in exercise at this level?: (P) 30 min Have you lost any weight without trying in the past 3 months? : (P) No Have you seen the dentist within the past year?: (P) Yes Hearing/ Vision: Hearing / Vision Do you or your family notice any trouble with your hearing that hasn't been managed with hearing aids?: (P) No Do you have difficulty driving, watching TV, or doing any of your daily activities because of your eyesight?: (P) No Have you had an eye exam within the past year?: (P) Yes Vision Screening Right eye Left eye Both eyes Without correction With correction 20/25 20/25 20/25 Safety: Safety Do you have a working smoke detector?: (P) Yes Do you have any tripping hazards - loose or unsecured carpets or rugs?: (P) No Do you have any tripping hazards - clutter in doorways, halls, or stairs?: (P) No Do you have either shower bars, grab bars, non-slip mats or non-slip surfaces in your shower or bathtub? : (P) Yes Do all your stairways have a railing or banister? : (P) Yes Do you fasten your seatbelt when you are in a car?: (P) Yes ADL: ADL In the past 7 days, did you need help from others to perform any of the following everyday activities: Eating, dressing, grooming,bathing, toileting, or walking / balance? : (P) No In the past 7 days, did you need help from others to take care of any of the following: laundry, housekeeping, banking / finances,shopping, telephone use, food preparation, transportation, or taking medications? : (P) No Living Will: Living Will Do you have a living will?: (P) No Interventions: Advance Care Planning addressed with patient today Cognitive: Cognitive Screening: Mini-Cog Clock Drawing Test (CDT): 2 Words Recalled: 3 Total Score: 5 Total Score Interpretation: Normal Mini-Cog Hypertension: No Fall Risk: Fall Risk One or more falls in the last year:: (P) Yes Advised to use a cane or walker to get around safely:: (P) No Feels unsteady when walking:: (P) Yes Steadies self on furniture while walking at home:: (P) No Worried about falling:: (P) No Interventions: Home safety tips provided Depression Screening: Over the past 2 weeks, how often have you been bothered by any of the following problems? Little interest or pleasure in doing things: Not at all Feeling down, depressed, or hopeless: Not at all Patient Health Questionnaire-2 Score: 0 Over the past 2 weeks, how often have you been bothered by any of the following problems? Trouble falling or staying asleep, or sleeping too much: Not at all Feeling tired or having little energy: Not at all Poor appetite or overeating: Not at all Feeling bad about yourself - or that you are a failure or have let yourself or your family down: Not at all Trouble concentrating on things, such as reading the newspaper or watching television: Not at all Moving or speaking so slowly that other people could have noticed? Or the opposite - being so fidgety or restless that you have been moving around a lot more than usual.: Not at all Thoughts that you would be better off or hurting yourself in some way: Not at all Patient Health Questionnaire-9 Score: 0 If you checked off any problems on this questionnaire so far, How difficult have these problems made it for you to do your work, take care of things at home, or get along with other people?: Not difficult at all Interventions: Relaxation techniques discussed Tobacco Use: Social History Tobacco Use Smoking Status Former Packs/day: 1.00 Years: 25.00 Additional pack years: 0.00 Total pack years: 25.00 Types: Cigarettes Start date: 11/26/1984 Quit date: 11/28/2008 Years since quittin.7 Smokeless Tobacco Never Tobacco Comments Current, daily use of nicotene pouches Alcohol Use: Audit Alcohol Screening Q1: How often do you have a drink containing alcohol?: (P) Never Q2: How many drinks containing alcohol do you have on a typical day when you are drinking?: (P) Patient does not drink Q3: How often do you have six or more drinks on one occasion?: (P) Never Audit-C Score: (P) 0 Skip to questions 9-10?: (P) 1 Objective : BP 88/64 Pulse 75 Temp 36.7 C (98.1 F) Ht 5' 11 (1.803 m) Wt 228 lb (103 kg) SpO2 97% BMI 31.80 kg/m Vision Screening Right eye Left eye Both eyes Without correction With correction 20/25 20/25 20/25 documented in this encounter [facility] 08-29-2023 Instructions Shawanda Costa MD - 08/29/2023 1:00 PM EST Personalized Preventative Plan for Nery Rodriguez - 08/29/2023 Medicare offers a range of preventative health benefits. Some of the tests and screenings are paid in full while others may be subject to a deductible, co-insurance, and / or copay. Some of these benefits include a comprehensive review of your medical history including lifestyle, illnesses that may run in your family, and various assessments and screenings as appropriate. After reviewing your medical record and screening and assessments performed today, your provider may have ordered immunizations, labs, imaging, and / or referrals for you. A list of these orders (if applicable) as well as your Preventative Care list are included within your After Visit Summary for your review. Other Preventative Recommendations: A preventive eye exam by an e commerce specialist is recommended every 1-2 years to screen for glaucoma, cataracts, macular degeneration, and other eye disorders. A preventive dental visit is recommended every 6 months. Try to get at least 150 minutes of exercise per week or 10,000 steps per day on a pedometer. You need 1200-1500mg of calcium and 0329-1709 international units of vitamin D per day. It is possible to meet your calcium requirement with diet alone, but a vitamin D supplement is usually necessary to meet this goal. When exposed to the sun, use a sunscreen that protects against both UVA and UVB radiation with an SPF of 30 or greater. Reapply every 2-3 hours or after sweating, drying off with a towel, or swimming. Always wear a seat belt when traveling in a car. Always wear a helmet when riding a bicycle or a motorcycle documented in this encounter [facility] [employer] 08-23-2023 History of Present illness Narrative Images from the original note were not included. [facility] AT [address] [place] [address] Dept: [phone] Dept PHYSICAL THERAPY TREATMENT Patient Name: Nery Rodriguez : 1950 Date of Service: 08/23/2023 Referring Provider: Milana Hussein NP Visit #: 5 Diagnosis: Chronic thoracic back pain, unspecified back pain laterality Reason for referral/Mechanism of injury: 08/08/23: Pt presents for evaluation of pain in thoracic spine region. He reports h/o muscle spasm in R intrascapular region when working in his 20s/30s. He reports in the past decade, pain has worsened. Lately, if he stands ~30 minutes, he begins to feel the pain, by an hour it becomes unbearable. Pt also notes in the past few months, he will find his shoulders hunched. He also notes low back pain from stooping and reaching over. Note h/o of right renal mass. He sees neurologist for tremors; may have Parkinson's, but not diagnosed. Patient Preferences: Nery Precautions/Red Flags: None Subjective Pt reported mild pain around C7-T1 today. Compliance with HEP: Yes Objective Objective measurements not taken today. Treatment Therapeutic Exercise # of Activities: 6 Therapeutic Exercise Activity 1: HEP 08/08 Activity 1 Comment: pulldowns L2TB, rows L3-TB, thoracic extension over chair, s/l shoulder sweep Therapeutic Exercise Activity 2: quadruped- to HEP Activity 2 Comment: UE flexion 2x10 Therapeutic Exercise Acitivity 3: FRINGE WEAVER- cables Activity 3 Comment: ANABEL shoulder HORIZ ABD 15# 2x10, FRINGE WEAVER- rows 25# 2x10 Therapeutic Exercise Activity 4: warm up Activity 4 Comment: UBE L1 2'/2' with emphasis on postural awareness Therapeutic Exercise Activity 5: postural strengthening Activity 5 Comment: shoulder flexion and ABD with 2# DB 1x10, standing against wall with ball behind head Therapeutic Exercise Activity 6: prone Activity 6 Comment: shoulder I/T/Y 2x10 no weight IASTM Location: R side scapular musculature Body Position: Prone Joint Mobilization Location: C7, T1 R side PA Body Position: Prone Comments: grade II Assessment Skilled physical therapy interventions utilized to improve patient s impairments and work towards established goals. Patient response to treatment: Pt tolerated progressions well and had no C/O discomfort with activity. Pt demonstrating improved posture. Mobility in thoracic spine is improving. Patient will benefit from continued physical therapy to meet therapy goals The rationale for today s treatment was explained to the patient. Verbal cues were provided for correct form with all exercises. Advised patient to continue with Home Exercise Program (HEP). Goals General/Ortho Patient will be independent with updated HEP. (Progressing) Start: 08/08/23 Expected End: 09/17/23 Patient will report decreased pain in R thoracic region from 7/10 at worst to </=4/10 in the past week in order to increase standing and walking tolerance. (Progressing) Start: 08/08/23 Expected End: 09/17/23 Patient will increase strength in B scapular musculature to 3+/5 for increased postural strength. (Progressing) Start: 08/08/23 Expected End: 09/17/23 Functional Outcome Measure: Patient will reduce QuickDASH score from 20% disability to </=8% disability. (Progressing) Start: 08/08/23 Expected End: 09/17/23 Patient will report reduced tenderness of muscles in R intrascapular region from moderate to slight-mild to demo increased soft tissue mobility. (Progressing) Start: 08/08/23 Expected End: 09/17/23 Plan Plan for next session: Continue with activity progression as tolerated, MT as needed. Time Entry Total Treatment Time Start Time: 1058 Stop Time: 1125 Time Calculation (min): 27 min Scott Grider PTA documented in this encounter [facility] [employer] 08-21-2023 History of Present illness Narrative Images from the original note were not included. [facility] AT [address] [place] [address] Dept: [phone] Dept PHYSICAL THERAPY TREATMENT Patient Name: Nery Rodriguez : 1950 Date of Service: 08/21/2023 Referring Provider: Milana Hussein NP Visit #: 4 Diagnosis: * No diagnoses found * Reason for referral/Mechanism of injury: 08/08/23: Pt presents for evaluation of pain in thoracic spine region. He reports h/o muscle spasm in R intrascapular region when working in his 20s/30s. He reports in the past decade, pain has worsened. Lately, if he stands ~30 minutes, he begins to feel the pain, by an hour it becomes unbearable. Pt also notes in the past few months, he will find his shoulders hunched. He also notes low back pain from stooping and reaching over. Note h/o of right renal mass. He sees neurologist for tremors; may have Parkinson's, but not diagnosed. Patient Preferences: Nery Precautions/Red Flags: None Subjective 2/10 lower neck pain. Pt thinks pain may be from playing his guitar over the weekend Compliance with HEP: Yes Objective Objective measurements not taken today. Treatment Therapeutic Exercise # of Activities: 5 Therapeutic Exercise Activity 1: HEP 08/08 Activity 1 Comment: pulldowns L2TB, rows L3-TB, thoracic extension over chair, s/l shoulder sweep Therapeutic Exercise Activity 2: quadruped- to HEP Activity 2 Comment: UE flexion 2x10 Therapeutic Exercise Acitivity 3: cables Activity 3 Comment: ANABEL shoulder HORIZ ABD 15# 2x10, FRINGE WEAVER- rows 25# 2x10 Therapeutic Exercise Activity 4: warm up Activity 4 Comment: UBE L1 2'/2' with emphasis on postural awareness Therapeutic Exercise Activity 5: postural strengthening Activity 5 Comment: shoulder flexion and ABD with 1# DB 1x10, standing against wall with ball behind head IASTM Location: R side scapular musculature Body Position: Prone Joint Mobilization Location: C-T junction Comments: grade II Assessment Skilled physical therapy interventions utilized to improve patient s impairments and work towards established goals. Patient response to treatment: Pt was appropriately challenged by exercises and reported improve tightness with activity. Mobility at C7-T1 improved with grade II mobiliztion. Pt tolerated well and reported feeling looser and pain free after session. Patient will benefit from continued physical therapy to meet therapy goals. The rationale for today s treatment was explained to the patient. Verbal cues were provided for correct form with all exercises. Advised patient to continue with Home Exercise Program (HEP). Goals General/Ortho Patient will be independent with updated HEP. (Progressing) Start: 08/08/23 Expected End: 09/17/23 Patient will report decreased pain in R thoracic region from 7/10 at worst to </=4/10 in the past week in order to increase standing and walking tolerance. (Progressing) Start: 08/08/23 Expected End: 09/17/23 Patient will increase strength in B scapular musculature to 3+/5 for increased postural strength. (Progressing) Start: 08/08/23 Expected End: 09/17/23 Functional Outcome Measure: Patient will reduce QuickDASH score from 20% disability to </=8% disability. (Progressing) Start: 08/08/23 Expected End: 09/17/23 Patient will report reduced tenderness of muscles in R intrascapular region from moderate to slight-mild to demo increased soft tissue mobility. (Progressing) Start: 08/08/23 Expected End: 09/17/23 Plan Plan for next session: Progress postural strengthening activity. Time Entry Total Treatment Time Start Time: 1100 Stop Time: 1130 Time Calculation (min): 30 min PT Therapeutic Procedures Time Entry Therapeutic Exercise Time Entry: 18 Manual Therapy Time Entry: 10 Scott Grider PTA documented in this encounter [employer] 08-14-2023 History of Present illness Narrative Images from the original note were not included. [facility] AT [facility] [address] [place] [address] Dept: [phone] Dept PHYSICAL THERAPY TREATMENT Patient Name: Nery Rodriguez : 1950 Date of Service: 08/14/2023 Referring Provider: Milana Hussein NP Visit #: 3 Diagnosis: Chronic thoracic back pain, unspecified back pain laterality Reason for referral/Mechanism of injury: 08/08/23: Pt presents for evaluation of pain in thoracic spine region. He reports h/o muscle spasm in R intrascapular region when working in his 20s/30s. He reports in the past decade, pain has worsened. Lately, if he stands ~30 minutes, he begins to feel the pain, by an hour it becomes unbearable. Pt also notes in the past few months, he will find his shoulders hunched. He also notes low back pain from stooping and reaching over. Note h/o of right renal mass. He sees neurologist for tremors; may have Parkinson's, but not diagnosed. Patient Preferences: Nery Precautions/Red Flags: None Subjective Pt reported he has felt tight in upper right back a couple times since last visit. Discomfort is not constant. Compliance with HEP: Yes Objective Objective measurements not taken today. Treatment Therapeutic Exercise # of Activities: 5 Therapeutic Exercise Activity 1: HEP 08/08 Activity 1 Comment: pulldowns L2TB, rows L3-TB, thoracic extension over chair, s/l shoulder sweep Therapeutic Exercise Activity 2: quadruped Activity 2 Comment: UE flexion 2x10 Therapeutic Exercise Acitivity 3: cables Activity 3 Comment: ANABEL shoulder HORIZ ABD 10# 2x10, rows 25# 2x10 Therapeutic Exercise Activity 4: warm up Activity 4 Comment: UBE L1 2'/2' with emphasis on postural awareness Therapeutic Exercise Activity 5: postural strengthening Activity 5 Comment: shoulder flexion and ABD with 1# DB x10, standing against wall with ball behind head IASTM Location: R side scapular musculature Body Position: Prone Joint Mobilization Location: R side costovertebral, upper-mid thoracic Body Position: Prone Comments: grade II Assessment Skilled physical therapy interventions utilized to improve patient s impairments and work towards established goals. Patient response to treatment: Pt was appropriately challenged by strengthening progression and did not experience any pain with activity. Improved muscle tights and joint mobility noted during MT. Patient will benefit from continued physical therapy to meet therapy goals. The rationale for today s treatment was explained to the patient. Verbal cues were provided for correct form with all exercises. Advised patient to continue with Home Exercise Program (HEP). Goals General/Ortho Patient will be independent with updated HEP. (Progressing) Start: 08/08/23 Expected End: 09/17/23 Patient will report decreased pain in R thoracic region from 7/10 at worst to </=4/10 in the past week in order to increase standing and walking tolerance. (Progressing) Start: 08/08/23 Expected End: 09/17/23 Patient will increase strength in B scapular musculature to 3+/5 for increased postural strength. (Progressing) Start: 08/08/23 Expected End: 09/17/23 Functional Outcome Measure: Patient will reduce QuickDASH score from 20% disability to </=8% disability. (Progressing) Start: 08/08/23 Expected End: 09/17/23 Patient will report reduced tenderness of muscles in R intrascapular region from moderate to slight-mild to demo increased soft tissue mobility. (Progressing) Start: 08/08/23 Expected End: 09/17/23 Plan Plan for next session: Progress strengthening as able, continue with MT. Update HEP. Time Entry Total Treatment Time Start Time: 1030 Stop Time: 1056 Time Calculation (min): 26 min PT Therapeutic Procedures Time Entry Therapeutic Exercise Time Entry: 18 Manual Therapy Time Entry: 8 Scott Grider PTA documented in this encounter [facility] [employer] 08-11-2023 History of Present illness Narrative Images from the original note were not included. [facility] AT [address] [place] [address] Dept: [phone] Dept PHYSICAL THERAPY TREATMENT Patient Name: Nery Rodriguez : 1950 Date of Service: 08/11/2023 Referring Provider: Milana Hussein NP Visit #: 2 Diagnosis: Chronic thoracic back pain, unspecified back pain laterality Reason for referral/Mechanism of injury: 08/08/23: Pt presents for evaluation of pain in thoracic spine region. He reports h/o muscle spasm in R intrascapular region when working in his 20s/30s. He reports in the past decade, pain has worsened. Lately, if he stands ~30 minutes, he begins to feel the pain, by an hour it becomes unbearable. Pt also notes in the past few months, he will find his shoulders hunched. He also notes low back pain from stooping and reaching over. Note h/o of right renal mass. He sees neurologist for tremors; may have Parkinson's, but not diagnosed. Patient Preferences: Nery Bernadette/Red Flags: None Subjective Pt reported HEP has been helping his back, he feels muscles on R side are relaxing. 1/10 pain along R side of spine today. Compliance with HEP: Yes Objective Objective measurements not taken today. Treatment Therapeutic Exercise # of Activities: 4 Therapeutic Exercise Activity 2: quadruped Activity 2 Comment: UE flexion 2x10 Therapeutic Exercise Acitivity 3: cables Activity 3 Comment: ANABEL shoulder HORIZ ABD 10# 2x10, rows 25# 2x10 IASTM Location: R side scapular musculature Body Position: Prone Joint Mobilization Location: R side costovertebral, upper-mid thoracic Body Position: Prone Comments: grade II Assessment Skilled physical therapy interventions utilized to improve patient s impairments and work towards established goals. Patient response to treatment: Stiffness in R side thoracic spine as well as muscle tightness improved with MT. Pt responded well to manual therapy and reported feeling relaxed and pain free after session. No discomfort after exercise. Patient will benefit from continued physical therapy to improve pain and strength. The rationale for today s treatment was explained to the patient. Verbal cues were provided for correct form with all exercises. Advised patient to continue with Home Exercise Program (HEP). Goals General/Ortho Patient will be independent with updated HEP. (Progressing) Start: 08/08/23 Expected End: 09/17/23 Patient will report decreased pain in R thoracic region from 7/10 at worst to </=4/10 in the past week in order to increase standing and walking tolerance. (Progressing) Start: 08/08/23 Expected End: 09/17/23 Patient will increase strength in B scapular musculature to 3+/5 for increased postural strength. (Progressing) Start: 08/08/23 Expected End: 09/17/23 Functional Outcome Measure: Patient will reduce QuickDASH score from 20% disability to </=8% disability. (Progressing) Start: 08/08/23 Expected End: 09/17/23 Patient will report reduced tenderness of muscles in R intrascapular region from moderate to slight-mild to demo increased soft tissue mobility. (Progressing) Start: 08/08/23 Expected End: 09/17/23 Plan Plan for next session: Continue with MT and scapular strengthening. Time Entry Total Treatment Time Start Time: 1004 Stop Time: 1030 Time Calculation (min): 26 min Scott Grider PTA documented in this encounter [facility] [employer] 08-08-2023 History of Present illness Narrative Images from the original note were not included. [facility] AT [address] [place] [address] Dept: [phone] Dept PHYSICAL THERAPY EVALUATION Patient Name: Nery Rodriguez : 1950 Date of Service: 08/08/2023 Referring Provider: Milana Hussein NP Visit #: 1 Diagnosis: Chronic thoracic back pain, unspecified back pain laterality General Information Reason for referral/Mechanism of injury: 08/08/23: Pt presents for evaluation of pain in thoracic spine region. He reports h/o muscle spasm in R intrascapular region when working in his 20s/30s. He reports in the past decade, pain has worsened. Lately, if he stands ~30 minutes, he begins to feel the pain, by an hour it becomes unbearable. Pt also notes in the past few months, he will find his shoulders hunched. He also notes low back pain from stooping and reaching over. Note h/o of right renal mass. He sees neurologist for tremors; may have Parkinson's, but not diagnosed. Patient Preferences: Nery Precautions/Red Flags: None Fall Risk: No Work status: retired Home Setup: lives with , 1 story. PMHX: Nery has a past medical history of 2019 novel coronavirus disease (COVID-19), Abnormal EKG, Anxiety, Enlarged prostate, Hyperlipidemia, Hypertension, REM sleep behavior disorder, and Sepsis (HCC). He has no past medical history of Awareness under anesthesia, Delayed emergence from general anesthesia, Hard to intubate, Malignant hyperthermia, or PONV (postoperative nausea and vomiting). PSHX: Nery has a past surgical history that includes Cyst Removal (1969) and Cystoscopy (02/12/2023). Have you experienced any anxiety or depression?: anxiety, treated Have you experienced thoughts of self-harm or suicidal thoughts?: No Physician follow-up appointment?: Yes, but with PCP, not referring doctor. Subjective Chief Complaint: R intrascapular region Pain: Current: 0/10 Best: 0/10 Worst: 7/10 Symptoms Aggravated by: R arm motions (house cleaning), prolonged standing or walking. Symptoms Relieved by: lying down, Motrin, relaxed sitting/supported Prior Level of Function: independent Current Level of Function: pain with house cleaning, ADL's, standing, walking. Rides stationary bike 30 minutes/day, 5 days/wk. Avoids long because of pain. Patient s Stated Goal: To be able to stand & walk 2-3 hours without back pain in order for him and his to go to events Objective Observation: Mild-moderate FHP, increased thoracic kyphosis, rounded shoulders. Gait: independent, decreased arm swing Transfers: independent Range of Motion (ROM): BUE WNL, no pain. Cervical spine WNL, feels stretch in back with cervical flexion, pain in neck with rotation. Thoracic spine, WNL, feels pain in R lower back with flexion. Upper Extremity Strength Date 08/08/2023 Right Left Shoulder Flexion 5/5 5/5 Shoulder Abduction 4+/5 4+/5 Shoulder External Rotation (ER) 5/5 5/5 Shoulder Internal Rotation (IR) 5/5 5/5 Elbow Flexion 5/5 5/5 Elbow Extension 5/5 5/5 Scapular Strength Date 08/08/23 Right Left Lower Trapezius 3+/5 3-/5 Middle Trapezius 3/5 3-/5 Rhomboids 3+/5 3/5 Joint Mobilization: 08/08/2023 = Mild hypomobility mid thoracic spine, Moderate hypomobility R ribs at LESLIE. Palpation: 08/08/2023 = Concordant tightness and tenderness R rhomboids, intercostals, all moderate. Denies pain elsewhere in upper back. QuickDASH: 08/08/2023 = 20% disability Assessment Nery is a 73 y.o. patient with chief complaint of R intrascapular pain, who presents with signs and symptoms consistent with postural dysfunction and soft tissue dysfunction. He has weak scapular muscles, hypomobility thoracic spine and R ribs, and myofascial TrPts (concordant pain). He would benefit from scapular strengthening, joint mobilizations, and STM. The patient would benefit from skilled physical therapy to address decreased strength, decreased endurance, decreased mobility, pain, soft tissue impairment, and impaired functional activities. Evaluation complexity is moderate secondary to: patient has 4 or more personal factors and/or comorbidities that will affect plan of care, therapy will be addressing 3 or more elements, and clinical presentation is evolving. Body Systems Affected: musculoskeletal Rehab Potential: Good Learning Preferences: demonstration, explanation, and performance Barriers to Rehab: age, anxiety, chronicity, comorbidities, duration of symptoms, and severity Goals General/Ortho Patient will be independent with updated HEP. (Initiated) Start: 08/08/23 Expected End: 09/17/23 Patient will report decreased pain in R thoracic region from 7/10 at worst to </=4/10 in the past week in order to increase standing and walking tolerance. (Initiated) Start: 08/08/23 Expected End: 09/17/23 Patient will increase strength in B scapular musculature to 3+/5 for increased postural strength. (Initiated) Start: 08/08/23 Expected End: 09/17/23 Functional Outcome Measure: Patient will reduce QuickDASH score from 20% disability to </=8% disability. (Initiated) Start: 08/08/23 Expected End: 09/17/23 Patient will report reduced tenderness of muscles in R intrascapular region from moderate to slight-mild to demo increased soft tissue mobility. (Initiated) Start: 08/08/23 Expected End: 09/17/23 Plan Frequency and Duration: 2/wk for 4-6 weeks Therapeutic Contents: manual therapy techniques, therapeutic activities, therapeutic exercise, and modalities as needed Plan for next session: Initiate thoracic & R rib joint mobilizations, STM (TPR, MFR), IASTM R intrascapular muscles, as well as postural strength and mobility (horizontal abduction, rows, alternating UE lifts in quadruped, etc). Risks and benefits were discussed with the patient and/or family, and the patient and/or family participated with the plan of care and agrees. Treatment Therapeutic Exercise # of Activities: 1 Therapeutic Exercise Activity 1: HEP 08/08 Activity 1 Comment: pulldowns L2TB, rows L3-TB, thoracic extension over chair, s/l shoulder sweep Patient Education: Eval, POC, HEP Time Entry Total Treatment Time Start Time: 832 Stop Time: 921 Time Calculation (min): 49 min PT Evaluation Time Entry PT Evaluation (Moderate) Time Entry: 39 PT Therapeutic Procedures Time Entry Therapeutic Exercise Time Entry: 10 Gem Schilling PT documented in this encounter [facility] 07-26-2023 History of Present illness Narrative Images from the original note were not included. Conner Quintero MD 07/26/2023 at 9:54 AM Office follow up PATIENT NAME: Nery Rodriguez DATE OF : 1950 TODAY'S DATE: 07/26/2023 CHIEF COMPLAINT: Chief Complaint Patient presents with Renal mass 6 month follow up MRI prior Subjective: Mr. Rodriguez is a 73 y.o. male who presents to the office for follow up of right renal mass He did have obstructive ureteral calculus with urosepsis in February Denies further flank pain Voiding well No hematuria Review of Systems Constitutional: Negative for activity change, chills, fatigue and fever. Gastrointestinal: Negative for abdominal distention and abdominal pain. Genitourinary: Negative for difficulty urinating, flank pain, frequency and penile pain. Past Medical History: Past Medical History: Diagnosis Date 2019 novel coronavirus disease (COVID-19) 02/18/2023 Abnormal EKG Anxiety Enlarged prostate Hyperlipidemia Hypertension REM sleep behavior disorder Sepsis (HCC) Past Surgical History: Past Surgical History: Procedure Laterality Date CYST REMOVAL 1970 Tailbone cyst CYSTOSCOPY 02/12/2023 C&P with stent Allergies: Pollen extract and Ropinirole Social History: Social History Socioeconomic History Marital status: Spouse name: Not on file Number of children: Not on file Years of education: Not on file Highest education level: Not on file Occupational History Not on file Tobacco Use Smoking status: Former Packs/day: 1.00 Years: 25.00 Additional pack years: 0.00 Total pack years: 25.00 Types: Cigarettes Start date: 11/26/1984 Quit date: 11/28/2008 Years since quittin.6 Smokeless tobacco: Never Tobacco comments: Current, daily use of nicotene pouches Vaping Use Vaping Use: Never used Substance and Sexual Activity Alcohol use: Not Currently Drug use: Never Comment: Caffeine: 1 cup of coffee; occasionally in afternoon Sexual activity: Not Currently Partners: Female control/protection: None Other Topics Concern Not on file Social History Narrative Not on file Social Determinants of Health Financial Resource Strain: Not on file Food Insecurity: Not on file Transportation Needs: Not on file Physical Activity: Not on file Stress: Not on file Social Connections: Not on file Intimate Partner Violence: Not At Risk (02/11/2023) Humiliation, Afraid, Rape, and Kick questionnaire Fear of Current or Ex-Partner: No Emotionally Abused: No Physically Abused: No Sexually Abused: No Housing Stability: Not on file Family History: Medications Prior to Admission medications Medication Sig Start Date End Date Taking? Authorizing Provider carbidopa-levodopa (Sinemet) 25-100 MG tablet Take 1 tablet by mouth 3 times daily. 07/07/23 08/06/23 Yes Breanna Tolliver MD clonazePAM (KlonoPIN) 0.5 MG tablet Take 0.5 tablets (0.25 mg) by mouth Daily as needed for anxiety. Do not start before May 23, 2023. 05/23/23 Yes Tanmay Elliott DO cyclobenzaprine (Flexeril) 10 MG tablet Take 1 tablet (10 mg) by mouth Nightly as needed for muscle spasms. 01/02/23 07/26/23 Yes Shawanda Costa MD fluticasone (Flonase) 50 MCG/ACT nasal spray Administer 1 spray into each nostril daily. 05/17/23 Yes Shawanda Costa MD gabapentin (Neurontin) 400 MG capsule Take 5 before bedime 05/01/23 Yes Yamilet Beebe DO loratadine (Claritin) 10 MG tablet Take 1 tablet (10 mg) by mouth daily. 05/22/23 Yes Shawanda Costa MD meloxicam (Mobic) 15 MG tablet Take by mouth Daily as needed. 01/31/23 Yes Maged Hernandez MD PARoxetine (Paxil) 10 MG tablet Take 1 tablet (10 mg) by mouth every morning. 06/13/23 08/12/23 Yes Tanmay Elliott DO tamsulosin (Flomax) 0.4 MG 24 hr capsule Take 1 capsule (0.4 mg) by mouth daily. 05/17/23 Yes Shawanda Costa MD telmisartan (MIcarDIS) 20 MG tablet Take 1 tablet (20 mg) by mouth daily. 03/02/23 Yes Shawanda Costa MD Vitals: There were no vitals taken for this visit. Physical Exam General: alert, appears stated age, and cooperative Abdomen: soft and nondistended Back: straight, CVA tenderness absent : defer exam Labs: WBC Lab Results Component Value Date WBC 10.4 02/14/2023 BMP Lab Results Component Value Date NA 135 02/14/2023 K 3.7 02/14/2023 CL 106 02/14/2023 CO2 26 02/14/2023 BUN 25 (H) 02/14/2023 CREATININE 0.93 02/14/2023 CREATININE 0.89 03/18/2022 GLUCOSE 117 (H) 02/14/2023 CALCIUM 8.1 (L) 02/14/2023 PSA Lab Results Component Value Date PSA 3.958 09/16/2021 PSA 2.232 05/17/2021 PSA 1.723 02/20/2020 UA Lab Results Component Value Date COLORU Yellow 02/11/2023 GLUCOSEU Normal 02/11/2023 UROBILINOGEN Normal 02/11/2023 Review: MRI ABDOMEN WITHOUT AND WITH CONTRAST (WITH ATTENTION TO THE KIDNEYS): CLINICAL INDICATION: Focal renal mass. TECHNIQUE: Multiplanar multisequence MR images were performed through the abdomen, including diffusion-weighted images and dynamic contrast-enhanced T1 sequence during injection of 10 mL of Gadavist contrast. Comparison: 07/18/2022, 11/15/2021 FINDINGS: Kidneys: Symmetric size and enhancement. No hydronephrosis. Renal Lesions: Simple right renal cysts, not requiring imaging follow-up. There is redemonstration of an enhancing lesion in the interpolar right kidney measuring approximately 2.0 x 2.0 cm, previously 1.7 x 1.4 cm. The renal vein is patent. Lymphadenopathy:None Liver: The liver is normal in size and contour. There is no drop in signal on in-phase or opposed-phase images to suggest fat or iron deposition. Numerous simple cysts are present throughout both hepatic lobes. Two septated cysts are again present in the left hepatic lobe Biliary tree: Normal gallbladder. No biliary dilatation. Spleen: Normal Adrenals:Normal Pancreas: Homogeneous enhancement without mass or peripancreatic fluid. No pancreatic duct dilation. Aorta: Normal caliber Visualized Osseous structures: Normal Other: Diverticulosis in the visualized colon. IMPRESSION: 1. Enhancing right renal lesion concerning for neoplasm, slightly increased in size dating back to 11/15/2021. 2. Multiple liver cysts, some of which contain thin septations. 3. Diverticulosis. ABDOMEN, 1 VIEW. CLINICAL INFORMATION: Renal calculus TECHNIQUE: Supine abdomen, 2 image(s) COMPARISON: CT abdomen and pelvis 02/11/2023 RESULT: See impression. IMPRESSION: Excessive colonic fecal burden which is nonspecific though can be seen with constipation if in the appropriate clinical setting. Colonic feces obscures assessment of the kidneys. As such, the previous identified renal calculi prior CT are not visualized. Consider further assessment with renal ultrasound or CT. Small calcific densities in the pelvis on the left nonspecific though perhaps phleboliths. No gas-filled dilated loops of small bowel. Degenerative changes of the lower lumbar spine. Impression/Plan Diagnoses and all orders for this visit: Renal mass - US retroperitoneum limited; Future Renal cyst Renal calculus MRI reviewed and compared to MRI from 11/16/2021 Renal mass now measuring 2.4 x 2.2cm, previously was 2.0 x 2.1cm There has likely been some slow progressive growth of this mass Given the central location, treatment would involve radical nephrectomy If the mass would continue to grow further then consider intervention Check renal US in 6 mo KUB : no further stones. Stone diet tips discussed Renal cyst looks stable No follow-ups on file. Conner Quintero MD 07/26/23 9:54 AM documented in this encounter [facility] 07-20-2023 Telephone encounter Note Spoke with patient and informed him new order has been placed and he can call and scheduled. He verbalized understanding [facility] 07-20-2023 Miscellaneous Notes Spoke with patient and informed him new order has been placed and he can call and scheduled. He verbalized understanding Order signed Name of caller: Nery Contact phone number: [phone] Relationship to Patient: Self Provider: [facility] Practice: Ortho Chief Complaint/Reason for Call: Pt called in stating he was not able to do PT for his back pain that was ordered at January due to having sepsis and being hospitalized. Pt states when he called [facility] to start he was told his referral has . Pt would like a new referral for PT, preferably in [place]. Please advise. Best time of day caller can be reached: Any Patient advised that office/PCP has 24-48 business hours to return their call: No documented in this encounter [facility] 07-20-2023 Telephone encounter Note Order signed [facility] Work Phone: 07-20-2023 Telephone encounter Note Name of caller: Nery Contact phone number: [phone] Relationship to Patient: Self Provider: [facility] Practice: Ortho Chief Complaint/Reason for Call: Pt called in stating he was not able to do PT for his back pain that was ordered at January due to having sepsis and being hospitalized. Pt states when he called [facility] to start he was told his referral has . Pt would like a new referral for PT, preferably in [place]. Please advise. Best time of day caller can be reached: Any Patient advised that office/PCP has 24-48 business hours to return their call: No [facility] 07-07-2023 History of Present illness Narrative Images from the original note were not included. [facility] [address] [facility] [address] [facility] [address] Dept: [phone] Dept Loc: [phone] Reason for Visit: Follow-up Assessment and Plan 1. Chronic anemia - CBC auto differential - Iron level - Vitamin B12 2. Screening, lipid - Lipid panel - Comprehensive metabolic panel 3. Controlled REM sleep behavior disorder Reviewed neurology no chronic stable we will continue the gabapentin. current treatment plan is effective, no change in therapy, orders and follow up as documented in EMR, lab results reviewed with patient, repeat labs ordered prior to next appointment, reviewed compliance with lifestyle measures, reviewed diet, exercise and weight control, reviewed medications and side effects in detail Return visit in 3 months. Subjective HPI this is a 72-year-old male patient who has a history of bipolar and major depressive disorder he sees a psychiatrist for this. He is here as well for follow-up his sores on his nose and mouth have disappeared. He feels much better with this. He states he recently went to see the neurologist. He was diagnosed with controlled REM sleep behavior disorder many years ago I did ask him to follow-up with a neurologist here who said to continue his gabapentin as he is doing fine he had tried to lower it in the past and then woke up and had issues with sleep. Since he has been on the gabapentin 2000 mg at night he has done well. Also patient was admitted to the hospital several months ago he was found to be anemic. I did let patient know that I would like this to get rechecked. Review of Systems Constitutional: Negative. Negative for activity change, appetite change and fever. HENT: Negative. Negative for congestion. Eyes: Negative. Negative for discharge. Respiratory: Negative. Negative for chest tightness. Cardiovascular: Negative. Gastrointestinal: Negative. Endocrine: Negative. Negative for cold intolerance. Genitourinary: Negative for difficulty urinating. Musculoskeletal: Negative. Neurological: Negative. Negative for dizziness, facial asymmetry and headaches. Hematological: Negative. Allergies Allergen Reactions Pollen Extract Seasonal allergies. Ropinirole Constipation and sleepiness Outpatient Medications Prior to Visit Medication Sig Dispense Refill carbidopa-levodopa (Sinemet) 25-100 MG tablet Take 1 tablet by mouth 3 times daily for 7 days. 21 tablet 0 clonazePAM (KlonoPIN) 0.5 MG tablet Take 0.5 tablets (0.25 mg) by mouth Daily as needed for anxiety. Do not start before May 23, 2023. 8 tablet 0 cyclobenzaprine (Flexeril) 10 MG tablet Take 1 tablet (10 mg) by mouth Nightly as needed for muscle spasms. 30 tablet 1 fluticasone (Flonase) 50 MCG/ACT nasal spray Administer 1 spray into each nostril daily. 16 g 3 gabapentin (Neurontin) 400 MG capsule Take 5 before bedime 150 capsule 3 loratadine (Claritin) 10 MG tablet Take 1 tablet (10 mg) by mouth daily. 90 tablet 1 loratadine (Claritin) 5 mg split tablet take 1 tablet by mouth once daily meloxicam (Mobic) 15 MG tablet PARoxetine (Paxil) 10 MG tablet Take 1 tablet (10 mg) by mouth every morning. 30 tablet 1 rOPINIRole (Requip) 1 MG tablet Take 1 tablet (1 mg) by mouth 3 times daily. 90 tablet 2 tamsulosin (Flomax) 0.4 MG 24 hr capsule Take 1 capsule (0.4 mg) by mouth daily. 90 capsule 1 telmisartan (MIcarDIS) 20 MG tablet Take 1 tablet (20 mg) by mouth daily. 90 tablet 1 No facility-administered medications prior to visit. 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 Orthostatic hypotension MDD (major depressive disorder) Dyslipidemia Ascending aortic aneurysm (HCC) Renal cyst, right Essential hypertension Gram-negative sepsis, unspecified (HCC) Lightheadedness Acute cystitis without hematuria Elevated troponin Hyponatremia Bipolar II disorder (CMS/HCC) (HCC) Past Medical History: Diagnosis Date 2019 novel coronavirus disease (COVID-19) 02/18/2023 Abnormal EKG Anxiety Enlarged prostate Hyperlipidemia Hypertension REM sleep behavior disorder Sepsis (HCC) Social History Tobacco Use Smoking status: Former Packs/day: 1.00 Years: 25.00 Pack years: 25.00 Types: Cigarettes Start date: 11/26/1984 Quit date: 11/28/2008 Years since quittin.6 Smokeless tobacco: Current Tobacco comments: Current, daily use of nicotine pouches- did not use today. Substance Use Topics Alcohol use: Not Currently Past Surgical History: Procedure Laterality Date CYST REMOVAL 1969 Tailbone cyst CYSTOSCOPY 02/12/2023 C&P with stent Family History Problem Relation Name Age of Onset Parkinsonism Mother Mother High Blood Pressure Mother Mother Depression Mother Mother Hearing loss Mother Mother Heart disease Father Nery Rodriguez Sr. Bipolar disorder Sister Health Maintenance Topic Date Due Medicare Annual Wellness (AWV) Never done Diabetes Screening Never done Hepatitis A Vaccines (2 of 2 - Risk 2-dose series) 01/16/1997 Hepatitis B Vaccines (1 of 3 - Risk 3-dose series) Never done Zoster Vaccines (2 of 3) 12/24/2012 Colorectal Cancer Screening 08/28/2021 COVID-19 Vaccine (4 - Booster for Moderna series) 12/01/2021 Depresssion Monitoring 11/16/2023 Lung Cancer Screening 05/22/2024 Lipid Panel 03/18/2027 DTaP/Tdap/Td Vaccines (3 - Td or Tdap) 01/20/2030 Influenza Vaccine Completed Pneumococcal Vaccine: 65+ Years Completed Hepatitis C Screening Completed HIB Vaccines Aged Out IPV Vaccines Aged Out Meningococcal Vaccine Aged Out Rotavirus Vaccines Aged Out HPV Vaccines Aged Out Objective BP 110/72 Pulse 73 Ht 6' (1.829 m) Wt 221 lb (100 kg) SpO2 98% BMI 29.97 kg/m Physical Exam Vitals and nursing note reviewed. Constitutional: Appearance: Normal appearance. HENT: Head: Normocephalic and atraumatic. Nose: No congestion or rhinorrhea. Mouth/Throat: Mouth: Mucous membranes are moist. Pharynx: Oropharynx is clear. No posterior oropharyngeal erythema. Eyes: Extraocular Movements: Extraocular movements intact. Conjunctiva/sclera: Conjunctivae normal. Pupils: Pupils are equal, round, and reactive to light. Cardiovascular: Pulses: Normal pulses. Heart sounds: Normal heart sounds. No murmur heard. Pulmonary: Effort: Pulmonary effort is normal. No respiratory distress. Breath sounds: Normal breath sounds. No wheezing. Abdominal: General: Abdomen is flat. Bowel sounds are normal. Palpations: Abdomen is soft. Tenderness: There is no abdominal tenderness. Musculoskeletal: General: No swelling. Cervical back: Normal range of motion. Skin: General: Skin is warm and dry. Neurological: General: No focal deficit present. Mental Status: He is alert and oriented to person, place, and time. Mental status is at baseline. Psychiatric: Mood and Affect: Mood normal. Data Reviewed and Summarized Labs: Lab Results Component Value Date WBC 10.4 02/14/2023 HGB 10.9 (L) 02/14/2023 HCT 31.8 (L) 02/14/2023 PLT 199 02/14/2023 TSH 1.092 12/29/2022 PSA 3.958 09/16/2021 INR 1.0 08/25/2020 Lab Results Component Value Date NA 135 02/14/2023 K 3.7 02/14/2023 CL 106 02/14/2023 CO2 26 02/14/2023 BUN 25 (H) 02/14/2023 CREATININE 0.93 02/14/2023 GLUCOSE 117 (H) 02/14/2023 CALCIUM 8.1 (L) 02/14/2023 PROT 5.6 (L) 02/14/2023 BILITOT 0.3 02/14/2023 ALKPHOS 63 02/14/2023 AST 39 02/14/2023 ALT 30 02/14/2023 @GLUCOSELAB@ Lab Results Component Value Date CHOL 217 (A) 03/18/2022 CHOL 197 09/16/2021 CHOL 170 05/17/2021 Lab Results Component Value Date TRIG 93 03/18/2022 TRIG 88 09/16/2021 TRIG 79 05/17/2021 Lab Results Component Value Date HDL 55 03/18/2022 HDL 50 09/16/2021 HDL 42 05/17/2021 No results found for: LDLCALC No results found for: VLDL Lab Results Component Value Date CHOLHDLRATIO 4 03/18/2022 CHOLHDLRATIO 4 09/16/2021 CHOLHDLRATIO 4 05/17/2021 Imaging/Testing: CT lung screening low dose Narrative: Patient Name: NERY RODRIGUEZ : 1950 [facility]#: [id number] Exam Date/Time: 05/22/2023 14:26 Procedure: CT LUNG SCREENING LOW DOSE Ordering Provider: MCGILL MARIA Reason For Exam: Z87.891 CT CHEST SCREENING WITHOUT CONTRAST CLINICAL INDICATION: Tobacco use, screening for lung cancer. Z87.891 TECHNIQUE: Low-dose axial CT images of the thorax from the lung apices through the bases were obtained. Dose reduction was employed with automated exposure control. COMPARISON: 05/16/2022. FINDINGS: Pulmonary nodules: *All nodule measurements are mean axial diameter and saved on louis images* 5 mm pulmonary nodule within the medial left upper lobe, unchanged (series 6, image 173). 2 mm peripheral right upper lobe calcified granuloma, unchanged. Lungs: Clear. Mild centrilobular emphysematous changes. No endobronchial lesions. Cardiomediastinum: Normal heart size with no pericardial effusion. Thoracic aortic arch atherosclerosis. Scant coronary artery calcifications are identified. Lymph nodes: No enlarged mediastinal, hilar, or axillary lymph nodes. Upper Abdomen: Multiple hepatic cysts are redemonstrated largest cyst within the right inferior hepatic lobe measures 5.7 x 7.6 cm (was 6.7 x 8 cm). Other smaller nodules are unchanged in size and position. Soft tissues and Osseous structures: Mild thoracic degenerative spondylosis. Impression: 1. 5 mm medial left upper lobe pulmonary nodule, unchanged. 2. Mild COPD, unchanged. 3. Coronary artery atherosclerotic calcifications. 4. Interval reduction in largest right hepatic cyst. Multiple hepatic cysts, unchanged. ASSESSMENT CATEGORY (version 2021): Lung-RADS Assessment Category 2 - Benign appearance or behavior. Recommend continued annual low-dose screening CT in 12 months. Lung-RADS Version 1.0 Assessment Categories Release date: February 10, 2014 Category 1 - Negative - Continue annual screening No nodules Nodules with benign characteristics (complete, central, popcorn Ca++) or fat Category 2 - Benign appearance or behavior - Continue annual screening solid nodule(s): < 6 mm or new < 4 mm part solid nodule(s): < 6 mm total diameter on baseline screening non solid nodule(s) (GGN): < 20 mm OR > 20 mm and unchanged or slowly growing category 3 or 4 nodules unchanged for > 3 months Category 3 - Probably benign finding(s) - 6 month follow up solid nodule(s): 6 to < 8 mm at baseline OR new 4 mm to < 6 mm part solid nodule(s) 6 mm total diameter with solid component < 6 mm OR new < 6 mm total diameter non solid nodule(s) (GGN) > [address] or new Category 4A - Suspicious - 3 month follow up or PET/CT when >8mm solid nodule(s): 8 to < 15 mm at baseline OR growing < 8 mm OR new 6 to <8 mm part solid nodule(s): > 6 mm with solid component > 6 mm to < 8 mm OR with a new or growing < 4 mm solid component Category 4B - Suspicious - chest CT with or without contrast, PET/CT and/or tissue sampling depending on the *probability of malignancy and comorbidities. PET/CT may be used when there is a > 8 mm solid component solid nodule(s): > 15 mm OR new or growing, and > 8 mm part solid nodule(s) with: a solid component > 8 mm OR a new or growing > 4mm solid component Category 4X - Suspicious - (same work up as Category 4B) Category 3 or 4 nodules with additional features or imaging findings that increases the suspicion of malignancy Modifiers to add to Category 0-4: Category S - Clinically or potentially significant non lung cancer related findings Category C - History of prior lung cancer who have returned to screening IMPORTANT NOTES FOR USE: 1. Size: nodules should be measured on lung windows and reported as the average diameter rounded to the nearest whole number; for round nodules only a single diameter measurement is necessary 2. Size Thresholds: apply to nodules at first detection, and that grow and reach a higher size category 3. Growth: an increase in size of > 1.5 mm 4. Exam Modifiers: S and C modifiers may be added to the 0-4 category 5. Category 4X: nodules with additional imaging findings that increase the suspicion of lung cancer, such as spiculation, GGN that doubles in size in 1 year, enlarged lymph nodes etc 6. Nodules with features of an intrapulmonary lymph node should be managed by mean diameter and the 0-4 numerical category classification 7. Category 3 and 4A nodules that are unchanged on interval CT should be coded as category 2, and individuals returned to screening in 12 months Report Dictated on Workstation: [id number] Electronically Signed By: Haresh Ojeda DO Electronically Signed Date/Time: 05/23/2023 7:04 PM EDT XR abdomen 1 view Narrative: Patient Name: NERY RODRIGUEZ : 1950 Exam Date/Time: 05/22/2023 14:16 Procedure: XR ABDOMEN 1 VIEW Ordering Provider: QUINTERO JOSHUA Reason For Exam: renal calculus ABDOMEN, 1 VIEW. CLINICAL INFORMATION: Renal calculus TECHNIQUE: Supine abdomen, 2 image(s) COMPARISON: CT abdomen and pelvis 02/11/2023 RESULT: See impression. Impression: Excessive colonic fecal burden which is nonspecific though can be seen with constipation if in the appropriate clinical setting. Colonic feces obscures assessment of the kidneys. As such, the previous identified renal calculi prior CT are not visualized. Consider further assessment with renal ultrasound or CT. Small calcific densities in the pelvis on the left nonspecific though perhaps phleboliths. No gas-filled dilated loops of small bowel. Degenerative changes of the lower lumbar spine. Report Dictated on Electronically Signed By: Willy Sommers MD Electronically Signed Date/Time: 05/23/2023 10:51 AM EDT Shawanda Costa MD documented in this encounter [facility] 07-07-2023 History of Present illness Narrative Images from the original note were not included. [facility] [address] [place] [address] [address] [facility] [address] Dept: [phone] Dept Loc: [phone] Reason for Visit: Follow-up Assessment and Plan 1. Chronic anemia - CBC auto differential - Iron level - Vitamin B12 2. Screening, lipid - Lipid panel - Comprehensive metabolic panel 3. Controlled REM sleep behavior disorder Reviewed neurology no chronic stable we will continue the gabapentin. current treatment plan is effective, no change in therapy, orders and follow up as documented in EMR, lab results reviewed with patient, repeat labs ordered prior to next appointment, reviewed compliance with lifestyle measures, reviewed diet, exercise and weight control, reviewed medications and side effects in detail Return visit in 3 months. Subjective HPI this is a 72-year-old male patient who has a history of bipolar and major depressive disorder he sees a psychiatrist for this. He is here as well for follow-up his sores on his nose and mouth have disappeared. He feels much better with this. He states he recently went to see the neurologist. He was diagnosed with controlled REM sleep behavior disorder many years ago I did ask him to follow-up with a neurologist here who said to continue his gabapentin as he is doing fine he had tried to lower it in the past and then woke up and had issues with sleep. Since he has been on the gabapentin 2000 mg at night he has done well. Also patient was admitted to the hospital several months ago he was found to be anemic. I did let patient know that I would like this to get rechecked. Review of Systems Constitutional: Negative. Negative for activity change, appetite change and fever. HENT: Negative. Negative for congestion. Eyes: Negative. Negative for discharge. Respiratory: Negative. Negative for chest tightness. Cardiovascular: Negative. Gastrointestinal: Negative. Endocrine: Negative. Negative for cold intolerance. Genitourinary: Negative for difficulty urinating. Musculoskeletal: Negative. Neurological: Negative. Negative for dizziness, facial asymmetry and headaches. Hematological: Negative. Allergies Allergen Reactions Pollen Extract Seasonal allergies. Ropinirole Constipation and sleepiness Outpatient Medications Prior to Visit Medication Sig Dispense Refill carbidopa-levodopa (Sinemet) 25-100 MG tablet Take 1 tablet by mouth 3 times daily for 7 days. 21 tablet 0 clonazePAM (KlonoPIN) 0.5 MG tablet Take 0.5 tablets (0.25 mg) by mouth Daily as needed for anxiety. Do not start before May 23, 2023. 8 tablet 0 cyclobenzaprine (Flexeril) 10 MG tablet Take 1 tablet (10 mg) by mouth Nightly as needed for muscle spasms. 30 tablet 1 fluticasone (Flonase) 50 MCG/ACT nasal spray Administer 1 spray into each nostril daily. 16 g 3 gabapentin (Neurontin) 400 MG capsule Take 5 before bedime 150 capsule 3 loratadine (Claritin) 10 MG tablet Take 1 tablet (10 mg) by mouth daily. 90 tablet 1 loratadine (Claritin) 5 mg split tablet take 1 tablet by mouth once daily meloxicam (Mobic) 15 MG tablet PARoxetine (Paxil) 10 MG tablet Take 1 tablet (10 mg) by mouth every morning. 30 tablet 1 rOPINIRole (Requip) 1 MG tablet Take 1 tablet (1 mg) by mouth 3 times daily. 90 tablet 2 tamsulosin (Flomax) 0.4 MG 24 hr capsule Take 1 capsule (0.4 mg) by mouth daily. 90 capsule 1 telmisartan (MIcarDIS) 20 MG tablet Take 1 tablet (20 mg) by mouth daily. 90 tablet 1 No facility-administered medications prior to visit. 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 Orthostatic hypotension MDD (major depressive disorder) Dyslipidemia Ascending aortic aneurysm (HCC) Renal cyst, right Essential hypertension Gram-negative sepsis, unspecified (HCC) Lightheadedness Acute cystitis without hematuria Elevated troponin Hyponatremia Bipolar II disorder (CMS/HCC) (HCC) Past Medical History: Diagnosis Date 2019 novel coronavirus disease (COVID-19) 02/18/2023 Abnormal EKG Anxiety Enlarged prostate Hyperlipidemia Hypertension REM sleep behavior disorder Sepsis (HCC) Social History Tobacco Use Smoking status: Former Packs/day: 1.00 Years: 25.00 Pack years: 25.00 Types: Cigarettes Start date: 11/26/1984 Quit date: 11/28/2008 Years since quittin.6 Smokeless tobacco: Current Tobacco comments: Current, daily use of nicotine pouches- did not use today. Substance Use Topics Alcohol use: Not Currently Past Surgical History: Procedure Laterality Date CYST REMOVAL 1970 Tailbone cyst CYSTOSCOPY 02/12/2023 C&P with stent Family History Problem Relation Name Age of Onset Parkinsonism Mother Mother High Blood Pressure Mother Mother Depression Mother Mother Hearing loss Mother Mother Heart disease Father Nery Rodriguez . Bipolar disorder Sister Health Maintenance Topic Date Due Medicare Annual Wellness (AWV) Never done Diabetes Screening Never done Hepatitis A Vaccines (2 of 2 - Risk 2-dose series) 01/16/1997 Hepatitis B Vaccines (1 of 3 - Risk 3-dose series) Never done Zoster Vaccines (2 of 3) 12/24/2012 Colorectal Cancer Screening 08/28/2021 COVID-19 Vaccine (4 - Booster for Moderna series) 12/01/2021 Depresssion Monitoring 11/16/2023 Lung Cancer Screening 05/22/2024 Lipid Panel 03/18/2027 DTaP/Tdap/Td Vaccines (3 - Td or Tdap) 01/20/2030 Influenza Vaccine Completed Pneumococcal Vaccine: 65+ Years Completed Hepatitis C Screening Completed HIB Vaccines Aged Out IPV Vaccines Aged Out Meningococcal Vaccine Aged Out Rotavirus Vaccines Aged Out HPV Vaccines Aged Out Objective BP 110/72 Pulse 73 Ht 6' (1.829 m) Wt 221 lb (100 kg) SpO2 98% BMI 29.97 kg/m Physical Exam Vitals and nursing note reviewed. Constitutional: Appearance: Normal appearance. HENT: Head: Normocephalic and atraumatic. Nose: No congestion or rhinorrhea. Mouth/Throat: Mouth: Mucous membranes are moist. Pharynx: Oropharynx is clear. No posterior oropharyngeal erythema. Eyes: Extraocular Movements: Extraocular movements intact. Conjunctiva/sclera: Conjunctivae normal. Pupils: Pupils are equal, round, and reactive to light. Cardiovascular: Pulses: Normal pulses. Heart sounds: Normal heart sounds. No murmur heard. Pulmonary: Effort: Pulmonary effort is normal. No respiratory distress. Breath sounds: Normal breath sounds. No wheezing. Abdominal: General: Abdomen is flat. Bowel sounds are normal. Palpations: Abdomen is soft. Tenderness: There is no abdominal tenderness. Musculoskeletal: General: No swelling. Cervical back: Normal range of motion. Skin: General: Skin is warm and dry. Neurological: General: No focal deficit present. Mental Status: He is alert and oriented to person, place, and time. Mental status is at baseline. Psychiatric: Mood and Affect: Mood normal. Data Reviewed and Summarized Labs: Lab Results Component Value Date WBC 10.4 02/14/2023 HGB 10.9 (L) 02/14/2023 HCT 31.8 (L) 02/14/2023 PLT 199 02/14/2023 TSH 1.092 12/29/2022 PSA 3.958 09/16/2021 INR 1.0 08/25/2020 Lab Results Component Value Date NA 135 02/14/2023 K 3.7 02/14/2023 CL 106 02/14/2023 CO2 26 02/14/2023 BUN 25 (H) 02/14/2023 CREATININE 0.93 02/14/2023 GLUCOSE 117 (H) 02/14/2023 CALCIUM 8.1 (L) 02/14/2023 PROT 5.6 (L) 02/14/2023 BILITOT 0.3 02/14/2023 ALKPHOS 63 02/14/2023 AST 39 02/14/2023 ALT 30 02/14/2023 @GLUCOSELAB@ Lab Results Component Value Date CHOL 217 (A) 03/18/2022 CHOL 197 09/16/2021 CHOL 170 05/17/2021 Lab Results Component Value Date TRIG 93 03/18/2022 TRIG 88 09/16/2021 TRIG 79 05/17/2021 Lab Results Component Value Date HDL 55 03/18/2022 HDL 50 09/16/2021 HDL 42 05/17/2021 No results found for: LDLCALC No results found for: VLDL Lab Results Component Value Date CHOLHDLRATIO 4 03/18/2022 CHOLHDLRATIO 4 09/16/2021 CHOLHDLRATIO 4 05/17/2021 Imaging/Testing: CT lung screening low dose Narrative: Patient Name: NERY RODRIGUEZ : 1950 Exam Date/Time: 05/22/2023 14:26 Procedure: CT LUNG SCREENING LOW DOSE Ordering Provider: MCGILL MARIA Reason For Exam: Z87.891 CT CHEST SCREENING WITHOUT CONTRAST CLINICAL INDICATION: Tobacco use, screening for lung cancer. Z87.891 TECHNIQUE: Low-dose axial CT images of the thorax from the lung apices through the bases were obtained. Dose reduction was employed with automated exposure control. COMPARISON: 05/16/2022. FINDINGS: Pulmonary nodules: *All nodule measurements are mean axial diameter and saved on louis images* 5 mm pulmonary nodule within the medial left upper lobe, unchanged (series 6, image 173). 2 mm peripheral right upper lobe calcified granuloma, unchanged. Lungs: Clear. Mild centrilobular emphysematous changes. No endobronchial lesions. Cardiomediastinum: Normal heart size with no pericardial effusion. Thoracic aortic arch atherosclerosis. Scant coronary artery calcifications are identified. Lymph nodes: No enlarged mediastinal, hilar, or axillary lymph nodes. Upper Abdomen: Multiple hepatic cysts are redemonstrated largest cyst within the right inferior hepatic lobe measures 5.7 x 7.6 cm (was 6.7 x 8 cm). Other smaller nodules are unchanged in size and position. Soft tissues and Osseous structures: Mild thoracic degenerative spondylosis. Impression: 1. 5 mm medial left upper lobe pulmonary nodule, unchanged. 2. Mild COPD, unchanged. 3. Coronary artery atherosclerotic calcifications. 4. Interval reduction in largest right hepatic cyst. Multiple hepatic cysts, unchanged. ASSESSMENT CATEGORY (version 2021): Lung-RADS Assessment Category 2 - Benign appearance or behavior. Recommend continued annual low-dose screening CT in 12 months. Lung-RADS Version 1.0 Assessment Categories Release date: February 10, 2014 Category 1 - Negative - Continue annual screening No nodules Nodules with benign characteristics (complete, central, popcorn Ca++) or fat Category 2 - Benign appearance or behavior - Continue annual screening solid nodule(s): < 6 mm or new < 4 mm part solid nodule(s): < 6 mm total diameter on baseline screening non solid nodule(s) (GGN): < 20 mm OR > 20 mm and unchanged or slowly growing category 3 or 4 nodules unchanged for > 3 months Category 3 - Probably benign finding(s) - 6 month follow up solid nodule(s): 6 to < 8 mm at baseline OR new 4 mm to < 6 mm part solid nodule(s) 6 mm total diameter with solid component < 6 mm OR new < 6 mm total diameter non solid nodule(s) (GGN) > [address] or new Category 4A - Suspicious - 3 month follow up or PET/CT when >8mm solid nodule(s): 8 to < 15 mm at baseline OR growing < 8 mm OR new 6 to <8 mm part solid nodule(s): > 6 mm with solid component > 6 mm to < 8 mm OR with a new or growing < 4 mm solid component Category 4B - Suspicious - chest CT with or without contrast, PET/CT and/or tissue sampling depending on the *probability of malignancy and comorbidities. PET/CT may be used when there is a > 8 mm solid component solid nodule(s): > 15 mm OR new or growing, and > 8 mm part solid nodule(s) with: a solid component > 8 mm OR a new or growing > 4mm solid component Category 4X - Suspicious - (same work up as Category 4B) Category 3 or 4 nodules with additional features or imaging findings that increases the suspicion of malignancy Modifiers to add to Category 0-4: Category S - Clinically or potentially significant non lung cancer related findings Category C - History of prior lung cancer who have returned to screening IMPORTANT NOTES FOR USE: 1. Size: nodules should be measured on lung windows and reported as the average diameter rounded to the nearest whole number; for round nodules only a single diameter measurement is necessary 2. Size Thresholds: apply to nodules at first detection, and that grow and reach a higher size category 3. Growth: an increase in size of > 1.5 mm 4. Exam Modifiers: S and C modifiers may be added to the 0-4 category 5. Category 4X: nodules with additional imaging findings that increase the suspicion of lung cancer, such as spiculation, GGN that doubles in size in 1 year, enlarged lymph nodes etc 6. Nodules with features of an intrapulmonary lymph node should be managed by mean diameter and the 0-4 numerical category classification 7. Category 3 and 4A nodules that are unchanged on interval CT should be coded as category 2, and individuals returned to screening in 12 months Report Dictated on Workstation: [id number] Electronically Signed By: Haresh Ojeda DO Electronically Signed Date/Time: 05/23/2023 7:04 PM EDT XR abdomen 1 view Narrative: Patient Name: NERY RODRIGUEZ : 1950 Exam Date/Time: 05/22/2023 14:16 Procedure: XR ABDOMEN 1 VIEW Ordering Provider: QUINTERO JOSHUA Reason For Exam: renal calculus ABDOMEN, 1 VIEW. CLINICAL INFORMATION: Renal calculus TECHNIQUE: Supine abdomen, 2 image(s) COMPARISON: CT abdomen and pelvis 02/11/2023 RESULT: See impression. Impression: Excessive colonic fecal burden which is nonspecific though can be seen with constipation if in the appropriate clinical setting. Colonic feces obscures assessment of the kidneys. As such, the previous identified renal calculi prior CT are not visualized. Consider further assessment with renal ultrasound or CT. Small calcific densities in the pelvis on the left nonspecific though perhaps phleboliths. No gas-filled dilated loops of small bowel. Degenerative changes of the lower lumbar spine. Report Dictated on Electronically Signed By: Willy oSmmers MD Electronically Signed Date/Time: 05/23/2023 10:51 AM EDT Shawanda Costa MD documented in this encounter [facility] 07-07-2023 Miscellaneous Notes Addended by: NYLA CHOPRA on: 12/18/2023 09:27 AM Modules accepted: Orders documented in this encounter [facility] 07-07-2023 Note Addended by: NYLA CHOPRA on: 12/18/2023 09:27 AM Modules accepted: Orders [facility] 07-05-2023 Telephone encounter Note Please find out from patient/family if they want to continue the Sinemet as I gave him a 7 day trial. [facility] 07-05-2023 Miscellaneous Notes Please find out from patient/family if they want to continue the Sinemet as I gave him a 7 day trial. Last ov- 06/28/23 Next ov- 09/20/23 documented in this encounter [facility] 07-05-2023 Telephone encounter Note Last ov- 06/28/23 Next ov- 09/20/23 [facility] 06-28-2023 History of Present illness Narrative [facility] [address] [facility] [address] Dept: [phone] Dept Loc: [phone] Visit type: Established Patient Reason for Visit: Follow-up and Tremors Assessment and Plan 1. Tremor 2. REM sleep behavior disorder Subjective HPI: He reports that he has good days and bad days. Ropinirole did not help. The ropinirole causes sleepiness and constipation. He reports that he is exercising every day. He reports that he has not had low HR. He is still having acting out of dreams. His last attack was 8 weeks ago. He had tried a lower dose on the gabapentin. So long as he takes 2000 mg of gabapentin he is fine. REVIEW OF SYSTEMS: Review of Systems Constitutional: Negative for appetite change, chills, diaphoresis, fatigue, fever and unexpected weight change. HENT: Negative for dental problem and mouth sores. Eyes: Negative for discharge and itching. Respiratory: Negative for chest tightness and shortness of breath. Cardiovascular: Negative for chest pain, palpitations and leg swelling. Gastrointestinal: Negative for abdominal pain, nausea, rectal pain and vomiting. Endocrine: Negative for polydipsia, polyphagia and polyuria. Genitourinary: Negative for decreased urine volume, flank pain and genital sores. Musculoskeletal: Positive for back pain. Negative for arthralgias and neck pain. Skin: Negative for color change. Allergic/Immunologic: Negative for food allergies and immunocompromised state. Neurological: Negative for dizziness, syncope, weakness, light-headedness and headaches. Hematological: Negative for adenopathy. Does not bruise/bleed easily. Psychiatric/Behavioral: Negative for agitation, behavioral problems, confusion, decreased concentration, sleep disturbance and suicidal ideas. Allergies Allergen Reactions Pollen Extract Seasonal allergies. Ropinirole Constipation and sleepiness Current Outpatient Medications: clonazePAM (KlonoPIN) 0.5 MG tablet, Take 0.5 tablets (0.25 mg) by mouth Daily as needed for anxiety. Do not start before May 23, 2023., Disp: 8 tablet, Rfl: 0 fluticasone (Flonase) 50 MCG/ACT nasal spray, Administer 1 spray into each nostril daily., Disp: 16 g, Rfl: 3 gabapentin (Neurontin) 400 MG capsule, Take 5 before bedime, Disp: 150 capsule, Rfl: 3 loratadine (Claritin) 10 MG tablet, Take 1 tablet (10 mg) by mouth daily., Disp: 90 tablet, Rfl: 1 meloxicam (Mobic) 15 MG tablet, , Disp: , Rfl: mupirocin (Bactroban) 2 % ointment, Apply topically 3 times daily for 10 days. Apply once daily nasally, Disp: 22 g, Rfl: 0 nystatin (Mycostatin) [id number] UNIT/ML suspension, Take 5 mL (500,000 Units) by mouth in the morning and 5 mL (500,000 Units) at noon and 5 mL (500,000 Units) in the evening and 5 mL (500,000 Units) before bedtime. Do all this for 14 days. Swish in mouth and swallow.., Disp: 280 mL, Rfl: 0 PARoxetine (Paxil) 10 MG tablet, Take 1 tablet (10 mg) by mouth every morning., Disp: 30 tablet, Rfl: 1 rOPINIRole (Requip) 1 MG tablet, Take 1 tablet (1 mg) by mouth 3 times daily., Disp: 90 tablet, Rfl: 2 tamsulosin (Flomax) 0.4 MG 24 hr capsule, Take 1 capsule (0.4 mg) by mouth daily., Disp: 90 capsule, Rfl: 1 telmisartan (MIcarDIS) 20 MG tablet, Take 1 tablet (20 mg) by mouth daily., Disp: 90 tablet, Rfl: 1 carbidopa-levodopa (Sinemet) 25-100 MG tablet, Take 1 tablet by mouth 3 times daily for 7 days., Disp: 21 tablet, Rfl: 0 cyclobenzaprine (Flexeril) 10 MG tablet, Take 1 tablet (10 mg) by mouth Nightly as needed for muscle spasms., Disp: 30 tablet, Rfl: 1 loratadine (Claritin) 5 mg split tablet, take 1 tablet by mouth once daily, Disp: , Rfl: Past Medical History: Diagnosis Date 2019 novel coronavirus disease (COVID-19) 02/18/2023 Abnormal EKG Anxiety Enlarged prostate Hyperlipidemia Hypertension REM sleep behavior disorder Sepsis (HCC) Social History Tobacco Use Smoking status: Former Packs/day: 1.00 Years: 25.00 Pack years: 25.00 Types: Cigarettes Start date: 11/26/1984 Quit date: 11/28/2008 Years since quittin.5 Smokeless tobacco: Current Tobacco comments: Current, daily use of nicotine pouches- did not use today. Substance Use Topics Alcohol use: Not Currently Past Surgical History: Procedure Laterality Date CYST REMOVAL 1970 Tailbone cyst CYSTOSCOPY 02/12/2023 C&P with stent Family History Problem Relation Name Age of Onset Parkinsonism Mother Mother High Blood Pressure Mother Mother Depression Mother Mother Hearing loss Mother Mother Heart disease Father Nery Rodriguez Sr. Bipolar disorder Sister Objective Vitals: BP 117/77 (BP Location: Left arm) Pulse 83 Wt 229 lb (104 kg) BMI 31.05 kg/m General Appearance: Patient is in no apparent distress. Head is normocephalic, atraumatic Cardiovascular: Regular rate and rhythm. No heart murmurs. No carotid bruit Neurologic: Mentation: Alert and oriented x 3 to person, place and time. Speech and Language: Speech and language normal Concentration and Attention: Concentration normal Memory: Memory normal Fund of Knowledge: Fund of knowledge normal Cranial Nerves: II, III, IV, V, , VII, VIII, IX, X, XI, XII examined and were intact. Masked facies. ?lower up gaze. Head titubation Motor: Strength: Strength 5 out of 5 with normal tone Alternating Movements: Normal Cogwheel Rigidity: None Tone: Tone is normal Tremor / Involuntary Movements: Left>right, more torsional than the last visit. Deep Tendon Reflexes: 1 out of 4 symmetrical in all four limbs. Coordination: Normal coordination upper and lower extremities Gait and Station: Station is normal. Gait is normal Data Reviewed and Summarized DIAGNOSTIC TESTING CBC: Lab Results Component Value Date WBC 10.4 02/14/2023 RBC 3.44 (L) 02/14/2023 HGB 10.9 (L) 02/14/2023 HCT 31.8 (L) 02/14/2023 MCV 92.5 02/14/2023 MCH 31.8 02/14/2023 MCHC 34.3 02/14/2023 RDW 13.0 02/14/2023 PLT 199 02/14/2023 MPV 8.3 02/14/2023 CMP: Lab Results Component Value Date NA 135 02/14/2023 K 3.7 02/14/2023 CL 106 02/14/2023 CO2 26 02/14/2023 BUN 25 (H) 02/14/2023 CREATININE 0.93 02/14/2023 CREATININE 0.89 03/18/2022 GLUCOSE 117 (H) 02/14/2023 PROT 5.6 (L) 02/14/2023 CALCIUM 8.1 (L) 02/14/2023 BILITOT 0.3 02/14/2023 ALKPHOS 63 02/14/2023 AST 39 02/14/2023 ALT 30 02/14/2023 BMP: Lab Results Component Value Date NA 135 02/14/2023 K 3.7 02/14/2023 CL 106 02/14/2023 CO2 26 02/14/2023 BUN 25 (H) 02/14/2023 CREATININE 0.93 02/14/2023 CREATININE 0.89 03/18/2022 CALCIUM 8.1 (L) 02/14/2023 GLUCOSE 117 (H) 02/14/2023 PT/INR: Lab Results Component Value Date PROTIME 10.8 08/25/2020 INR 1.0 08/25/2020 PTT: No results found for: APTT, PTT[APTT} FLP: Lab Results Component Value Date TRIG 93 03/18/2022 HDL 55 03/18/2022 TSH: Lab Results Component Value Date TSH 1.092 12/29/2022 VITAMIN B12: No results found for: [id number] No results found for: PHENYTOIN, PHENOBARB, VALPROATE, CBMZ No components found for: TOPIRA @RESULTINGLABINFO@ FERRITIN Date Value Ref Range Status 08/25/2020 96 18 - 464 ng/mL Final No results found for: KELLIE, IMMUNOGLOBUL, [facility] HEPATITIS C ANTIBODY Date Value Ref Range Status 08/25/2020 NOT DETECTED Not-Detected NA Final Comment: Patients with DETECTED Hepatitis C Ab results should have a new specimen submitted for supplemental testing with a Hepatitis C Quantitative RNA assay (viral load), if clinically indicated. No results found for: CRP, ANATITER, ANCA, ANCA FERRITIN: Lab Results Component Value Date FERRITIN 96 08/25/2020 ---- CT lung screening low dose Narrative: Patient Name: NERY RODRIGUEZ : 1950 Exam Date/Time: 05/22/2023 14:26 Procedure: CT LUNG SCREENING LOW DOSE Ordering Provider: MCGILL MARIA Reason For Exam: Z87.891 CT CHEST SCREENING WITHOUT CONTRAST CLINICAL INDICATION: Tobacco use, screening for lung cancer. Z87.891 TECHNIQUE: Low-dose axial CT images of the thorax from the lung apices through the bases were obtained. Dose reduction was employed with automated exposure control. COMPARISON: 05/16/2022. FINDINGS: Pulmonary nodules: *All nodule measurements are mean axial diameter and saved on louis images* 5 mm pulmonary nodule within the medial left upper lobe, unchanged (series 6, image 173). 2 mm peripheral right upper lobe calcified granuloma, unchanged. Lungs: Clear. Mild centrilobular emphysematous changes. No endobronchial lesions. Cardiomediastinum: Normal heart size with no pericardial effusion. Thoracic aortic arch atherosclerosis. Scant coronary artery calcifications are identified. Lymph nodes: No enlarged mediastinal, hilar, or axillary lymph nodes. Upper Abdomen: Multiple hepatic cysts are redemonstrated largest cyst within the right inferior hepatic lobe measures 5.7 x 7.6 cm (was 6.7 x 8 cm). Other smaller nodules are unchanged in size and position. Soft tissues and Osseous structures: Mild thoracic degenerative spondylosis. Impression: 1. 5 mm medial left upper lobe pulmonary nodule, unchanged. 2. Mild COPD, unchanged. 3. Coronary artery atherosclerotic calcifications. 4. Interval reduction in largest right hepatic cyst. Multiple hepatic cysts, unchanged. ASSESSMENT CATEGORY (version 2021): Lung-RADS Assessment Category 2 - Benign appearance or behavior. Recommend continued annual low-dose screening CT in 12 months. Lung-RADS Version 1.0 Assessment Categories Release date: February 10, 2014 Category 1 - Negative - Continue annual screening No nodules Nodules with benign characteristics (complete, central, popcorn Ca++) or fat Category 2 - Benign appearance or behavior - Continue annual screening solid nodule(s): < 6 mm or new < 4 mm part solid nodule(s): < 6 mm total diameter on baseline screening non solid nodule(s) (GGN): < 20 mm OR > 20 mm and unchanged or slowly growing category 3 or 4 nodules unchanged for > 3 months Category 3 - Probably benign finding(s) - 6 month follow up solid nodule(s): 6 to < 8 mm at baseline OR new 4 mm to < 6 mm part solid nodule(s) 6 mm total diameter with solid component < 6 mm OR new < 6 mm total diameter non solid nodule(s) (GGN) > [address] or new Category 4A - Suspicious - 3 month follow up or PET/CT when >8mm solid nodule(s): 8 to < 15 mm at baseline OR growing < 8 mm OR new 6 to <8 mm part solid nodule(s): > 6 mm with solid component > 6 mm to < 8 mm OR with a new or growing < 4 mm solid component Category 4B - Suspicious - chest CT with or without contrast, PET/CT and/or tissue sampling depending on the *probability of malignancy and comorbidities. PET/CT may be used when there is a > 8 mm solid component solid nodule(s): > 15 mm OR new or growing, and > 8 mm part solid nodule(s) with: a solid component > 8 mm OR a new or growing > 4mm solid component Category 4X - Suspicious - (same work up as Category 4B) Category 3 or 4 nodules with additional features or imaging findings that increases the suspicion of malignancy Modifiers to add to Category 0-4: Category S - Clinically or potentially significant non lung cancer related findings Category C - History of prior lung cancer who have returned to screening IMPORTANT NOTES FOR USE: 1. Size: nodules should be measured on lung windows and reported as the average diameter rounded to the nearest whole number; for round nodules only a single diameter measurement is necessary 2. Size Thresholds: apply to nodules at first detection, and that grow and reach a higher size category 3. Growth: an increase in size of > 1.5 mm 4. Exam Modifiers: S and C modifiers may be added to the 0-4 category 5. Category 4X: nodules with additional imaging findings that increase the suspicion of lung cancer, such as spiculation, GGN that doubles in size in 1 year, enlarged lymph nodes etc 6. Nodules with features of an intrapulmonary lymph node should be managed by mean diameter and the 0-4 numerical category classification 7. Category 3 and 4A nodules that are unchanged on interval CT should be coded as category 2, and individuals returned to screening in 12 months Report Dictated on Workstation: [id number] Electronically Signed By: Haresh Ojeda DO Electronically Signed Date/Time: 05/23/2023 7:04 PM EDT XR abdomen 1 view Narrative: Patient Name: NERY RODRIGUEZ : 1950 Exam Date/Time: 05/22/2023 14:16 Procedure: XR ABDOMEN 1 VIEW Ordering Provider: QUINTERO JOSHUA Reason For Exam: renal calculus ABDOMEN, 1 VIEW. CLINICAL INFORMATION: Renal calculus TECHNIQUE: Supine abdomen, 2 image(s) COMPARISON: CT abdomen and pelvis 02/11/2023 RESULT: See impression. Impression: Excessive colonic fecal burden which is nonspecific though can be seen with constipation if in the appropriate clinical setting. Colonic feces obscures assessment of the kidneys. As such, the previous identified renal calculi prior CT are not visualized. Consider further assessment with renal ultrasound or CT. Small calcific densities in the pelvis on the left nonspecific though perhaps phleboliths. No gas-filled dilated loops of small bowel. Degenerative changes of the lower lumbar spine. Report Dictated on Electronically Signed By: Willy Sommers MD Electronically Signed Date/Time: 05/23/2023 10:51 AM EDT IMPRESSION and PLAN: Diagnosis Plan 1. Tremor 2. REM sleep behavior disorder The ropinirole did not help but his exam is still suggestive of a Parkinsonian process, so I want him to try Sinemet for 7 days. If that fails to help, then will go back to propranolol and watch the pulse. The pt is to continue the gabapentin from his PCP. BREANNA TOLLIVER MD I spent 30 minutes caring for this patient today, reviewing labs, records, seeing the patient, documenting in the record and arranging for studies. @SIGNATURE@ documented in this encounter [facility] 06-20-2023 History of Present illness Narrative Images from the original note were not included. [facility] [address] [place] [address] [place] [id number] Dept: [phone] Dept Loc: [phone] Reason for Visit: Mouth Lesions Assessment and Plan 1. Mouth sores - nystatin (Mycostatin) [id number] UNIT/ML suspension; Take 5 mL (500,000 Units) by mouth in the morning and 5 mL (500,000 Units) at noon and 5 mL (500,000 Units) in the evening and 5 mL (500,000 Units) before bedtime. Do all this for 14 days. Swish in mouth and swallow.., Starting Mon06/20/2023, Until Mon07/04/2023, Normal 2. Sore in nose - mupirocin (Bactroban) 2 % ointment; Apply topically 3 times daily for 10 days. Apply once daily nasally, Starting Mon06/20/2023, Until Mon06/30/2023, Normal current treatment plan is effective, no change in therapy, orders and follow up as documented in EMR, lab results reviewed with patient, repeat labs ordered prior to next appointment, reviewed compliance with lifestyle measures, reviewed diet, exercise and weight control, reviewed medications and side effects in detail Return visit in 3 week. Subjective Mouth Lesions Associated symptoms include mouth sores. this is a 72-year-old male patient with multiple medical problems. Patient complains of white spots on his mouth. He states that they were ever since he has been on high-dose antibiotics in the hospital. He also complains of sores in his nose. No fevers no chills no sick contacts. Review of Systems HENT: Positive for mouth sores. Eyes: Negative. Respiratory: Negative. Gastrointestinal: Negative. Allergies Allergen Reactions Pollen Extract Seasonal allergies. Outpatient Medications Prior to Visit Medication Sig Dispense Refill clonazePAM (KlonoPIN) 0.5 MG tablet Take 0.5 tablets (0.25 mg) by mouth Daily as needed for anxiety. Do not start before May 23, 2023. 8 tablet 0 cyclobenzaprine (Flexeril) 10 MG tablet Take 1 tablet (10 mg) by mouth Nightly as needed for muscle spasms. 30 tablet 1 fluticasone (Flonase) 50 MCG/ACT nasal spray Administer 1 spray into each nostril daily. 16 g 3 gabapentin (Neurontin) 400 MG capsule Take 5 before bedime 150 capsule 3 loratadine (Claritin) 10 MG tablet Take 1 tablet (10 mg) by mouth daily. 90 tablet 1 loratadine (Claritin) 5 mg split tablet take 1 tablet by mouth once daily meloxicam (Mobic) 15 MG tablet PARoxetine (Paxil) 10 MG tablet Take 1 tablet (10 mg) by mouth every morning. 30 tablet 1 rOPINIRole (Requip) 1 MG tablet Take 1 tablet (1 mg) by mouth 3 times daily. 90 tablet 2 tamsulosin (Flomax) 0.4 MG 24 hr capsule Take 1 capsule (0.4 mg) by mouth daily. 90 capsule 1 telmisartan (MIcarDIS) 20 MG tablet Take 1 tablet (20 mg) by mouth daily. 90 tablet 1 No facility-administered medications prior to visit. 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 Orthostatic hypotension MDD (major depressive disorder) Dyslipidemia Ascending aortic aneurysm (HCC) Renal cyst, right Essential hypertension Gram-negative sepsis, unspecified (HCC) Lightheadedness Acute cystitis without hematuria Elevated troponin Hyponatremia Bipolar II disorder (CMS/HCC) (HCC) Past Medical History: Diagnosis Date 2018 novel coronavirus disease (COVID-19) 02/18/2023 Abnormal EKG Anxiety Enlarged prostate Hyperlipidemia Hypertension REM sleep behavior disorder Sepsis (HCC) Social History Tobacco Use Smoking status: Former Packs/day: 1.00 Years: 25.00 Pack years: 25.00 Types: Cigarettes Start date: 11/26/1984 Quit date: 11/28/2008 Years since quittin.5 Smokeless tobacco: Current Tobacco comments: Current, daily use of nicotine pouches- did not use today. Substance Use Topics Alcohol use: Not Currently Past Surgical History: Procedure Laterality Date CYST REMOVAL 1970 [facility] cyst CYSTOSCOPY 02/12/2023 C&P with stent Family History Problem Relation Name Age of Onset Parkinsonism Mother Mother High Blood Pressure Mother Mother Depression Mother Mother Hearing loss Mother Mother Heart disease Father Nery Rodriguez Sr. Bipolar disorder Sister Health Maintenance Topic Date Due Medicare Annual Wellness (AWV) Never done Diabetes Screening Never done Hepatitis A Vaccines (2 of 2 - Risk 2-dose series) 01/16/1997 Hepatitis B Vaccines (1 of 3 - Risk 3-dose series) Never done Zoster Vaccines (2 of 3) 12/24/2012 Colorectal Cancer Screening 08/28/2021 COVID-19 Vaccine (4 - Booster for Moderna series) 12/01/2021 Influenza Vaccine (1) 06/16/2023 Depresssion Monitoring 11/16/2023 Lung Cancer Screening 05/22/2024 Lipid Panel 03/18/2027 DTaP/Tdap/Td Vaccines (3 - Td or Tdap) 01/20/2030 Pneumococcal Vaccine: 65+ Years Completed Hepatitis C Screening Completed HIB Vaccines Aged Out IPV Vaccines Aged Out Meningococcal Vaccine Aged Out Rotavirus Vaccines Aged Out HPV Vaccines Aged Out Objective There were no vitals taken for this visit. Physical Exam Data Reviewed and Summarized Labs: Lab Results Component Value Date WBC 10.4 02/14/2023 HGB 10.9 (L) 02/14/2023 HCT 31.8 (L) 02/14/2023 PLT 199 02/14/2023 TSH 1.092 12/29/2022 PSA 3.958 09/16/2021 INR 1.0 08/25/2020 Lab Results Component Value Date NA 135 02/14/2023 K 3.7 02/14/2023 CL 106 02/14/2023 CO2 26 02/14/2023 BUN 25 (H) 02/14/2023 CREATININE 0.93 02/14/2023 GLUCOSE 117 (H) 02/14/2023 CALCIUM 8.1 (L) 02/14/2023 PROT 5.6 (L) 02/14/2023 BILITOT 0.3 02/14/2023 ALKPHOS 63 02/14/2023 AST 39 02/14/2023 ALT 30 02/14/2023 @GLUCOSELAB@ Lab Results Component Value Date CHOL 217 (A) 03/18/2022 CHOL 197 09/16/2021 CHOL 170 05/17/2021 Lab Results Component Value Date TRIG 93 03/18/2022 TRIG 88 09/16/2021 TRIG 79 05/17/2021 Lab Results Component Value Date HDL 55 03/18/2022 HDL 50 09/16/2021 HDL 42 05/17/2021 No results found for: LDLCALC No results found for: VLDL Lab Results Component Value Date CHOLHDLRATIO 4 03/18/2022 CHOLHDLRATIO 4 09/16/2021 CHOLHDLRATIO 4 05/17/2021 Imaging/Testing: CT lung screening low dose Narrative: Patient Name: NERY RODRIGUEZ : 1950 Exam Date/Time: 05/22/2023 14:26 Procedure: CT LUNG SCREENING LOW DOSE Ordering Provider: MCGILL MARIA Reason For Exam: Z87.891 CT CHEST SCREENING WITHOUT CONTRAST CLINICAL INDICATION: Tobacco use, screening for lung cancer. Z87.891 TECHNIQUE: Low-dose axial CT images of the thorax from the lung apices through the bases were obtained. Dose reduction was employed with automated exposure control. COMPARISON: 05/16/2022. FINDINGS: Pulmonary nodules: *All nodule measurements are mean axial diameter and saved on louis images* 5 mm pulmonary nodule within the medial left upper lobe, unchanged (series 6, image 173). 2 mm peripheral right upper lobe calcified granuloma, unchanged. Lungs: Clear. Mild centrilobular emphysematous changes. No endobronchial lesions. Cardiomediastinum: Normal heart size with no pericardial effusion. Thoracic aortic arch atherosclerosis. Scant coronary artery calcifications are identified. Lymph nodes: No enlarged mediastinal, hilar, or axillary lymph nodes. Upper Abdomen: Multiple hepatic cysts are redemonstrated largest cyst within the right inferior hepatic lobe measures 5.7 x 7.6 cm (was 6.7 x 8 cm). Other smaller nodules are unchanged in size and position. Soft tissues and Osseous structures: Mild thoracic degenerative spondylosis. Impression: 1. 5 mm medial left upper lobe pulmonary nodule, unchanged. 2. Mild COPD, unchanged. 3. Coronary artery atherosclerotic calcifications. 4. Interval reduction in largest right hepatic cyst. Multiple hepatic cysts, unchanged. ASSESSMENT CATEGORY (version 2021): Lung-RADS Assessment Category 2 - Benign appearance or behavior. Recommend continued annual low-dose screening CT in 12 months. Lung-RADS Version 1.0 Assessment Categories Release date: February 10, 2014 Category 1 - Negative - Continue annual screening No nodules Nodules with benign characteristics (complete, central, popcorn Ca++) or fat Category 2 - Benign appearance or behavior - Continue annual screening solid nodule(s): < 6 mm or new < 4 mm part solid nodule(s): < 6 mm total diameter on baseline screening non solid nodule(s) (GGN): < 20 mm OR > 20 mm and unchanged or slowly growing category 3 or 4 nodules unchanged for > 3 months Category 3 - Probably benign finding(s) - 6 month follow up solid nodule(s): 6 to < 8 mm at baseline OR new 4 mm to < 6 mm part solid nodule(s) 6 mm total diameter with solid component < 6 mm OR new < 6 mm total diameter non solid nodule(s) (GGN) > [address] or new Category 4A - Suspicious - 3 month follow up or PET/CT when >8mm solid nodule(s): 8 to < 15 mm at baseline OR growing < 8 mm OR new 6 to <8 mm part solid nodule(s): > 6 mm with solid component > 6 mm to < 8 mm OR with a new or growing < 4 mm solid component Category 4B - Suspicious - chest CT with or without contrast, PET/CT and/or tissue sampling depending on the *probability of malignancy and comorbidities. PET/CT may be used when there is a > 8 mm solid component solid nodule(s): > 15 mm OR new or growing, and > 8 mm part solid nodule(s) with: a solid component > 8 mm OR a new or growing > 4mm solid component Category 4X - Suspicious - (same work up as Category 4B) Category 3 or 4 nodules with additional features or imaging findings that increases the suspicion of malignancy Modifiers to add to Category 0-4: Category S - Clinically or potentially significant non lung cancer related findings Category C - History of prior lung cancer who have returned to screening IMPORTANT NOTES FOR USE: 1. Size: nodules should be measured on lung windows and reported as the average diameter rounded to the nearest whole number; for round nodules only a single diameter measurement is necessary 2. Size Thresholds: apply to nodules at first detection, and that grow and reach a higher size category 3. Growth: an increase in size of > 1.5 mm 4. Exam Modifiers: S and C modifiers may be added to the 0-4 category 5. Category 4X: nodules with additional imaging findings that increase the suspicion of lung cancer, such as spiculation, GGN that doubles in size in 1 year, enlarged lymph nodes etc 6. Nodules with features of an intrapulmonary lymph node should be managed by mean diameter and the 0-4 numerical category classification 7. Category 3 and 4A nodules that are unchanged on interval CT should be coded as category 2, and individuals returned to screening in 12 months Report Dictated on Workstation: [id number] Electronically Signed By: Haresh Ojeda DO Electronically Signed Date/Time: 05/23/2023 7:04 PM EDT XR abdomen 1 view Narrative: Patient Name: [facility]RIGUEZ : 1950 [id number] Exam Date/Time: 05/22/2023 14:16 Procedure: XR ABDOMEN 1 VIEW Ordering Provider: QUINTERO JOSHUA Reason For Exam: renal calculus ABDOMEN, 1 VIEW. CLINICAL INFORMATION: Renal calculus TECHNIQUE: Supine abdomen, 2 image(s) COMPARISON: CT abdomen and pelvis 02/11/2023 RESULT: See impression. Impression: Excessive colonic fecal burden which is nonspecific though can be seen with constipation if in the appropriate clinical setting. Colonic feces obscures assessment of the kidneys. As such, the previous identified renal calculi prior CT are not visualized. Consider further assessment with renal ultrasound or CT. Small calcific densities in the pelvis on the left nonspecific though perhaps phleboliths. No gas-filled dilated loops of small bowel. Degenerative changes of the lower lumbar spine. Report Dictated on Electronically Signed By: Willy Sommers MD Electronically Signed Date/Time: 05/23/2023 10:51 AM EDT Shawanda Costa MD documented in this encounter [facility] 05-25-2023 Telephone encounter Note Thank you will mail out. Lt [facility] 05-25-2023 Miscellaneous Notes Thank you will mail out. Lt Patient returned call and is unable to make it to the [place] office to sign Consent form. They have requested it to be mailed to them. I have confirmed the address on file is correct. LM for Nery if he could please stop in our [place] office tomorrow and sign his consent that he forgot to sign I would appreciate it. Asked him to give us a call. LT documented in this encounter [facility] 05-24-2023 Telephone encounter Note Patient returned call and is unable to make it to the [place] office to sign Consent form. They have requested it to be mailed to them. I have confirmed the address on file is correct. [facility] 05-24-2023 Miscellaneous Notes Patient returned call and is unable to make it to the [place] office to sign Consent form. They have requested it to be mailed to them. I have confirmed the address on file is correct. LM for Nery if he could please stop in our [place] office tomorrow and sign his consent that he forgot to sign I would appreciate it. Asked him to give us a call. LT documented in this encounter [facility] 05-23-2023 Telephone encounter Note LM for Nery if he could please stop in our [place] office tomorrow and sign his consent that he forgot to sign I would appreciate it. Asked him to give us a call. LT [facility] 05-17-2023 Telephone encounter Note Last seen:03/07/23 Scheduled:07/07/23 [facility] 05-17-2023 Miscellaneous Notes Last seen:03/07/23 Scheduled:07/07/23 documented in this encounter [facility] 05-04-2023 History of Present illness Narrative Images from the original note were not included. Igor Subramanian MD 05/04/2023 at 1:56 PM Office follow up PATIENT NAME: Nery Rodriguez DATE OF : 1950 TODAY'S DATE: 05/04/2023 CHIEF COMPLAINT: Chief Complaint Patient presents with Procedure Stent removal Subjective: Mr. Rodriguez is a 72 y.o. male who presents to the office for follow up of kidney stones [place] 03/2023 Pt with history of Presents for cysto, stent removal. Consent obtained. Patient prepped. Flexible cystoscopy inserted into the urethra, directed into the bladder under direct vision. Stent grasped and removed. Patient tolerated procedure well. Follow up Review of Systems Medications Current Outpatient Medications: clonazePAM (KlonoPIN) 0.5 MG tablet, Take 0.5 tablets (0.25 mg) by mouth Daily as needed for anxiety., Disp: 8 tablet, Rfl: 0 fluticasone (Flonase) 50 MCG/ACT nasal spray, Administer 1 spray into each nostril daily., Disp: 16 g, Rfl: 3 gabapentin (Neurontin) 400 MG capsule, Take 5 before bedime, Disp: 150 capsule, Rfl: 3 loratadine (Claritin) 5 mg split tablet, take 1 tablet by mouth once daily, Disp: , Rfl: meloxicam (Mobic) 15 MG tablet, , Disp: , Rfl: PARoxetine (Paxil) 30 MG tablet, Take 1 tablet (30 mg) by mouth daily., Disp: 30 tablet, Rfl: 2 rOPINIRole (Requip) 1 MG tablet, Take 1 tablet (1 mg) by mouth 3 times daily., Disp: 90 tablet, Rfl: 2 tamsulosin (Flomax) 0.4 MG 24 hr capsule, Take 1 capsule (0.4 mg) by mouth daily., Disp: 30 capsule, Rfl: 3 telmisartan (MIcarDIS) 20 MG tablet, Take 1 tablet (20 mg) by mouth daily., Disp: 90 tablet, Rfl: 1 cyclobenzaprine (Flexeril) 10 MG tablet, Take 1 tablet (10 mg) by mouth Nightly as needed for muscle spasms., Disp: 30 tablet, Rfl: 1 Vitals: Ht 6' (1.829 m) Wt 223 lb (101 kg) BMI 30.24 kg/m Physical Exam Physical Exam LABS: Lab Results Component Value Date PSA 3.958 09/16/2021 PSA 2.232 05/17/2021 PSA 1.723 02/20/2020 No results found for: TESTOSTERONE Lab Results Component Value Date WBC 10.4 02/14/2023 HGB 10.9 (L) 02/14/2023 HCT 31.8 (L) 02/14/2023 MCV 92.5 02/14/2023 PLT 199 02/14/2023 Lab Results Component Value Date GLUCOSE 117 (H) 02/14/2023 CALCIUM 8.1 (L) 02/14/2023 NA 135 02/14/2023 K 3.7 02/14/2023 CO2 26 02/14/2023 CL 106 02/14/2023 BUN 25 (H) 02/14/2023 CREATININE 0.93 02/14/2023 No components found for: LABURIN @LASTPROCPOC@ Pathology: Radiology: Impression/Plan: Nery was seen today for procedure. Diagnoses and all orders for this visit: Renal calculus (Primary) - XR abdomen 1 view; Future Had fu with JN to monitor Renal mass No follow-ups on file. Igor Subramanian MD 05/04/23 1:56 PM [facility]: [id number] LOT: [id number] S2 EXP: 07/10 Administered by Christie Kong RN documented in this encounter [facility] 04-10-2023 History of Present illness Narrative Images from the original note were not included. [facility] [address] [place] [address] [facility] [address] Dept: [phone] Dept Loc: [phone] Visit type: Established Patient Reason for Visit: Follow-up and Tremors Assessment and Plan 1. Tremor - rOPINIRole (Requip) 1 MG tablet; Take 1 tablet (1 mg) by mouth 3 times daily., Starting 04/10/2023, Until Mon04/09/2024, Normal Subjective HPI: He reports that propranolol was effective but when he wsa in the hospital in February with pyelonephritis it was stopped. REVIEW OF SYSTEMS: Review of Systems Constitutional: Negative for appetite change, chills, diaphoresis, fatigue, fever and unexpected weight change. HENT: Negative for dental problem and mouth sores. Eyes: Negative for discharge and itching. Respiratory: Negative for chest tightness and shortness of breath. Cardiovascular: Negative for chest pain, palpitations and leg swelling. Gastrointestinal: Negative for abdominal pain, nausea, rectal pain and vomiting. Endocrine: Negative for polydipsia, polyphagia and polyuria. Genitourinary: Negative for decreased urine volume, flank pain and genital sores. Musculoskeletal: Positive for back pain. Negative for arthralgias and neck pain. Skin: Negative for color change. Allergic/Immunologic: Negative for food allergies and immunocompromised state. Neurological: Negative for dizziness, syncope, weakness, light-headedness and headaches. Hematological: Negative for adenopathy. Does not bruise/bleed easily. Psychiatric/Behavioral: Negative for agitation, behavioral problems, confusion, decreased concentration, sleep disturbance and suicidal ideas. Answers submitted by the patient for this visit: Neurological Problem Questionnaire (Submitted on 04/03/2023) Chief Complaint: Neurologic complaint altered mental status: No clumsiness: Yes focal sensory loss: No focal weakness: No loss of balance: No memory loss: No near-syncope: No slurred speech: No visual change: No Chronicity: chronic Onset: more than 1 year ago Onset quality: insidiously Progression since onset: gradually worsening Focality: upper extremity auditory change: No aura: No bladder incontinence: No bowel incontinence: No vertigo: No Treatments tried: medication Improvement on treatment: significant Allergies Allergen Reactions Pollen Extract Seasonal allergies. Current Outpatient Medications: clonazePAM (KlonoPIN) 0.5 MG tablet, Take 0.5 tablets (0.25 mg) by mouth Daily as needed for anxiety., Disp: 8 tablet, Rfl: 0 fluticasone (Flonase) 50 MCG/ACT nasal spray, Administer 1 spray into each nostril daily., Disp: 16 g, Rfl: 3 gabapentin (Neurontin) 400 MG capsule, Take 3 before bedime (Patient taking differently: Take 400 mg by mouth 3 times daily. Take 3 before bedime), Disp: 150 capsule, Rfl: 3 loratadine (Claritin) 5 mg split tablet, take 1 tablet by mouth once daily, Disp: , Rfl: meloxicam (Mobic) 15 MG tablet, , Disp: , Rfl: PARoxetine (Paxil) 30 MG tablet, Take 1 tablet (30 mg) by mouth daily., Disp: 30 tablet, Rfl: 2 tamsulosin (Flomax) 0.4 MG 24 hr capsule, Take 1 capsule (0.4 mg) by mouth daily., Disp: 30 capsule, Rfl: 3 telmisartan (MIcarDIS) 20 MG tablet, Take 1 tablet (20 mg) by mouth daily., Disp: 90 tablet, Rfl: 1 cyclobenzaprine (Flexeril) 10 MG tablet, Take 1 tablet (10 mg) by mouth Nightly as needed for muscle spasms., Disp: 30 tablet, Rfl: 1 rOPINIRole (Requip) 1 MG tablet, Take 1 tablet (1 mg) by mouth 3 times daily., Disp: 90 tablet, Rfl: 2 Past Medical History: Diagnosis Date 2019 novel coronavirus disease (COVID-19) 02/18/2023 Abnormal EKG Anxiety Enlarged prostate Hyperlipidemia Hypertension REM sleep behavior disorder Sepsis (HCC) Social History Tobacco Use Smoking status: Former Packs/day: 1.00 Years: 25.00 Pack years: 25.00 Types: Cigarettes Start date: 11/26/1984 Quit date: 11/28/2008 Years since quittin.3 Smokeless tobacco: Current Tobacco comments: Current, daily use of nicotine pouches- did not use today. Substance Use Topics Alcohol use: Not Currently Past Surgical History: Procedure Laterality Date CYST REMOVAL 1970 Tailbone cyst CYSTOSCOPY 02/12/2023 C&P with stent Family History Problem Relation Name Age of Onset Parkinsonism Mother Mother High Blood Pressure Mother Mother Depression Mother Mother Hearing loss Mother Mother Heart disease Father Nery Rodriguez Sr. Bipolar disorder Sister Objective Vitals: BP 126/82 (BP Location: Right arm) Pulse 83 Wt 223 lb (101 kg) BMI 29.62 kg/m General Appearance: Patient is in no apparent distress. Head is normocephalic, atraumatic Cardiovascular: Regular rate and rhythm. No heart murmurs. No carotid bruit Neurologic: Mentation: Alert and oriented x 3 to person, place and time. Speech and Language: Speech and language normal Concentration and Attention: Concentration normal Memory: Memory normal Fund of Knowledge: Fund of knowledge normal Cranial Nerves: II, III, IV, V, , VII, VIII, IX, X, XI, XII examined and were intact. Masked facies. ?lower up gaze. Head titubation Motor: Strength: Strength 5 out of 5 with normal tone Alternating Movements: Normal Cogwheel Rigidity: None Tone: Tone is normal Tremor / Involuntary Movements: Left>right, more torsional than the last visit. Deep Tendon Reflexes: 1 out of 4 symmetrical in all four limbs. Coordination: Normal coordination upper and lower extremities Gait and Station: Station is normal. Gait is normal Data Reviewed and Summarized DIAGNOSTIC TESTING CBC: Lab Results Component Value Date WBC 10.4 02/14/2023 RBC 3.44 (L) 02/14/2023 HGB 10.9 (L) 02/14/2023 HCT 31.8 (L) 02/14/2023 MCV 92.5 02/14/2023 MCH 31.8 02/14/2023 MCHC 34.3 02/14/2023 RDW 13.0 02/14/2023 PLT 199 02/14/2023 MPV 8.3 02/14/2023 CMP: Lab Results Component Value Date NA 135 02/14/2023 K 3.7 02/14/2023 CL 106 02/14/2023 CO2 26 02/14/2023 BUN 25 (H) 02/14/2023 CREATININE 0.93 02/14/2023 CREATININE 0.89 03/18/2022 GLUCOSE 117 (H) 02/14/2023 PROT 5.6 (L) 02/14/2023 CALCIUM 8.1 (L) 02/14/2023 BILITOT 0.3 02/14/2023 ALKPHOS 63 02/14/2023 AST 39 02/14/2023 ALT 30 02/14/2023 BMP: Lab Results Component Value Date NA 135 02/14/2023 K 3.7 02/14/2023 CL 106 02/14/2023 CO2 26 02/14/2023 BUN 25 (H) 02/14/2023 CREATININE 0.93 02/14/2023 CREATININE 0.89 03/18/2022 CALCIUM 8.1 (L) 02/14/2023 GLUCOSE 117 (H) 02/14/2023 PT/INR: Lab Results Component Value Date PROTIME 10.8 08/25/2020 INR 1.0 08/25/2020 PTT: No results found for: APTT, PTT[APTT} FLP: Lab Results Component Value Date TRIG 93 03/18/2022 HDL 55 03/18/2022 TSH: Lab Results Component Value Date TSH 1.092 12/29/2022 VITAMIN B12: No results found for: [id number] No results found for: PHENYTOIN, PHENOBARB, VALPROATE, CBMZ No components found for: TOPIRA @RESULTINGLABINFO@ FERRITIN Date Value Ref Range Status 08/25/2020 96 18 - 464 ng/mL Final No results found for: KELLIE, IMMUNOGLOBUL, [facility] [employer] HEPATITIS C ANTIBODY Date Value Ref Range Status 08/25/2020 NOT DETECTED Not-Detected NA Final Comment: Patients with DETECTED Hepatitis C Ab results should have a new specimen submitted for supplemental testing with a Hepatitis C Quantitative RNA assay (viral load), if clinically indicated. No results found for: CRP, ANATITER, ANCA, ANCA FERRITIN: Lab Results Component Value Date FERRITIN 96 08/25/2020 ---- FL GUIDANCE OR USE ONLY - NON RESULTABLE There is no interpretation needed for this exam. IMPRESSION and PLAN: Diagnosis Plan 1. Tremor rOPINIRole (Requip) 1 MG tablet Again there is a mixed exam, but today there is a slightly more PD look to the exam. Will have him start ropinirole 1 mg PO TID. No problem-specific Assessment & Plan notes found for this encounter. BREANNA TOLLIVER MD I spent 30 minutes caring for this patient today, reviewing labs, records, seeing the patient, documenting in the record and arranging for studies. @SIGNATURE@ documented in this encounter [facility] [employer] 04-04-2023 Miscellaneous Notes Denies pain nausea or dizziness. Ambulates to restroom gait steady. Discharge instructions reviewed with pt and . Provided with RX for [place]. States urine is grapefruit colored. brought to bedside and she is given update. PreOp Dx ureteral calculus PostOp Dx Same Operation Cystoscopy, retrograde pyelogram, flouroscopy, left ureteroscopy, laser lithotripsy, ureteral stent exchange Surgeon Igor Subramanian MD Assist None EBL Minimal Drains 6fr X 24cmJJ Kamara none Specimen none Condition To PACU This is a 72 y.o. patient who presents with a ureteral calculus. After having a discussion on treatment options, risks and benefits, the patient wishes to proceed forward with surgical intervention Patient was brought to the operating room. A thorough time out was performed and everyone present was in agreement. Patient was placed on OR table. Anesthesia and lines were maintained by the anesthesia team. Patient was placed in the dorsal lithotomy position. Prepped and draped in usual fashion. Pressure points were padded. A cystourethroscope was inserted through the urethra and the bladder was inspected. The previous left stent was grasped and removed. Retrograde pyelograms were performed under fluoroscopic visualization on the left side, it showed mild hydro. A sensor wire was advanced to the level of the kidney ont he left. Only a flexible ureteroscope was available. A flexible ureteroscope was passed over the wire. The entire ureter was visualized and no stone seen. In the kidney, there were 3 non obstructing stones, each of stones were lasered and dusted. Inspection and pyelography did not reveal any other stones present A 6fr X 24cmJJ was advanced over the wire through the cystoscope under fluoroscopic visualization. Once in position the wire was removed. A good curl was noted in the kidney and the bladder. The bladder was emptied and patient awoken from anesthesia. Office cysto and stent removal in 1-2 weeks documented in this encounter [facility] 04-04-2023 Note Formatting of this n ote might be different from the original. Denies pain nausea or dizziness. Ambulates to restroom gait steady. Discharge instructions reviewed with pt and . Provided with RX for [place]. States urine is grapefruit colored. [facility] 04-04-2023 Note Formatting of this n ote might be different from the original. Denies pain nausea or dizziness. Ambulates to restroom gait steady. Discharge instructions reviewed with pt and . Provided with RX for [place]. States urine is grapefruit colored. [facility] 04-04-2023 Note Formatting of this n ote might be different from the original. brought to bedside and she is given update. [facility] 04-04-2023 Note Formatting of this n ote might be different from the original. brought to bedside and she is given update. [facility] 04-04-2023 Hospital Discharge instructions Sarah Jain RN - 04/04/2023 2:16 PM EDT If any fevers, chills, worsening hematuria, worsening symptoms. Please call urology or go to the ER Office will call for stent removal date The following attachments cannot be sent through Care Everywhere.Kidney Stones Discharge Instructions (Romanian)General Anesthesia Discharge Instructions (Romanian)documented in this encounter [facility] 04-04-2023 Telephone encounter Note Office cysto and stent removal in 1-2 weeks [facility] [employer] Work Phone: 04-04-2023 Miscellaneous Notes Office cysto and stent removal in 1-2 weeks documented in this encounter [facility] 04-04-2023 Note Formatting of this n ote might be different from the original. PreOp Dx ureteral calculus PostOp Dx Same Operation Cystoscopy, retrograde pyelogram, flouroscopy, left ureteroscopy, laser lithotripsy, ureteral stent exchange Surgeon Igor Subramanian MD Assist None EBL Minimal Drains 6fr X 24cmJJ Kamara none Specimen none Condition To PACU This is a 72 y.o. patient who presents with a ureteral calculus. After having a discussion on treatment options, risks and benefits, the patient wishes to proceed forward with surgical intervention Patient was brought to the operating room. A thorough time out was performed and everyone present was in agreement. Patient was placed on OR table. Anesthesia and lines were maintained by the anesthesia team. Patient was placed in the dorsal lithotomy position. Prepped and draped in usual fashion. Pressure points were padded. A cystourethroscope was inserted through the urethra and the bladder was inspected. The previous left stent was grasped and removed. Retrograde pyelograms were performed under fluoroscopic visualization on the left side, it showed mild hydro. A sensor wire was advanced to the level of the kidney ont he left. Only a flexible ureteroscope was available. A flexible ureteroscope was passed over the wire. The entire ureter was visualized and no stone seen. In the kidney, there were 3 non obstructing stones, each of stones were lasered and dusted. Inspection and pyelography did not reveal any other stones present A 6fr X 24cmJJ was advanced over the wire through the cystoscope under fluoroscopic visualization. Once in position the wire was removed. A good curl was noted in the kidney and the bladder. The bladder was emptied and patient awoken from anesthesia. Office cysto and stent removal in 1-2 weeks [facility] 04-04-2023 Note Formatting of this n ote might be different from the original. PreOp Dx ureteral calculus PostOp Dx Same Operation Cystoscopy, retrograde pyelogram, flouroscopy, left ureteroscopy, laser lithotripsy, ureteral stent exchange Surgeon Igor Subramanian MD Assist None EBL Minimal Drains 6fr X 24cmJJ Kamara none Specimen none Condition To PACU This is a 72 y.o. patient who presents with a ureteral calculus. After having a discussion on treatment options, risks and benefits, the patient wishes to proceed forward with surgical intervention Patient was brought to the operating room. A thorough time out was performed and everyone present was in agreement. Patient was placed on OR table. Anesthesia and lines were maintained by the anesthesia team. Patient was placed in the dorsal lithotomy position. Prepped and draped in usual fashion. Pressure points were padded. A cystourethroscope was inserted through the urethra and the bladder was inspected. The previous left stent was grasped and removed. Retrograde pyelograms were performed under fluoroscopic visualization on the left side, it showed mild hydro. A sensor wire was advanced to the level of the kidney ont he left. Only a flexible ureteroscope was available. A flexible ureteroscope was passed over the wire. The entire ureter was visualized and no stone seen. In the kidney, there were 3 non obstructing stones, each of stones were lasered and dusted. Inspection and pyelography did not reveal any other stones present A 6fr X 24cmJJ was advanced over the wire through the cystoscope under fluoroscopic visualization. Once in position the wire was removed. A good curl was noted in the kidney and the bladder. The bladder was emptied and patient awoken from anesthesia. Office cysto and stent removal in 1-2 weeks [facility] 03-30-2023 Telephone encounter Note Called Pt LV surgery time has changed ARRIVE @ 9:30 AM Surgery @ 11:30 [facility] 03-30-2023 Miscellaneous Notes Called Pt LVM surgery time has changed ARRIVE @ 9:30 AM Surgery @ 11:30 [facility] documented in this encounter [facility] 03-14-2023 History of Present illness Narrative Images from the original note were not included. [facility] Cardiology Office Note DATE of SERVICE: 03/14/23 TIME of SERVICE: 1:46 PM Reason for Visit: Chief Complaint Patient presents with Hospital Follow-up History ofPresent Illness: Nery Rodriguez is a 72 y.o. male who is known to Dr. Velázquez. He has a history of hypertension, RBBB/LAFB, as well as a mildly dilated aorta, last measured 4.0 cm per most recent echocardiogram February 13, 2023. He presents in office today after recent admission to [facility] 02/11/2023-02/14/2023 where he was treated for acute pyelonephritis and left sided ureterolithiasis. He was found to have sepsis, treated with antibiotics. While admitted he had minimal elevated troponin, peaking at 0.038 felt to be consistent with demand ischemia. Inpatient transthoracic echo February 13, 2023 as noted above continue to document a well-preserved EF measured 42% with normal wall motion, he had no valvular disease present. His ascending aorta diameter was measured 4.0 cm. Today in office he is feeling well. He denies cardiac complaints. He has been increasing his activity he is now using his recumbent bicycle for 30 minutes at least 5 days weekly with no limiting symptoms. He feels his energy and stamina continue to improve. I did not make any medication changes, I do not feel that further cardiac testing is warranted at this time. I did advise that he continue using his exercise bicycle, and to notify the office of his activity tolerance were to lessen or change. Past Medical History: Past Medical History: Diagnosis Date 2019 novel coronavirus disease (COVID-19) 02/18/2023 Abnormal EKG Anxiety Enlarged prostate Hyperlipidemia Hypertension REM sleep behavior disorder Past Surgical History Past Surgical History: Procedure Laterality Date CYST REMOVAL 1970 Tailbone cyst CYSTOSCOPY 02/12/2023 C&P with stent Family History Family History Problem Relation Name Age of Onset Parkinsonism Mother Mother High Blood Pressure Mother Mother Depression Mother Mother Hearing loss Mother Mother Heart disease Father Nery Rodriguez Sr. Bipolar disorder Sister Social History Social History Tobacco Use Smoking status: Former Packs/day: 1.00 Years: 25.00 Pack years: 25.00 Types: Cigarettes Start date: 11/26/1984 Quit date: 11/28/2008 Years since quittin.2 Smokeless tobacco: Never Tobacco comments: Current, daily use of nicotene pouches Vaping Use Vaping Use: Never used Substance Use Topics Alcohol use: Not Currently Drug use: Never Allergies: Allergies Allergen Reactions Other Seasonal Pollen Extract Medications: Current Outpatient Medications: clonazePAM (KlonoPIN) 0.5 MG tablet, Take 0.5 tablets (0.25 mg) by mouth Daily as needed for anxiety., Disp: 8 tablet, Rfl: 0 cyclobenzaprine (Flexeril) 10 MG tablet, Take 1 tablet (10 mg) by mouth Nightly as needed for muscle spasms., Disp: 30 tablet, Rfl: 1 fluticasone (Flonase) 50 MCG/ACT nasal spray, Administer 1 spray into each nostril daily., Disp: 16 g, Rfl: 3 gabapentin (Neurontin) 400 MG capsule, Take 3 before bedime, Disp: 150 capsule, Rfl: 3 loratadine (Claritin) 5 mg split tablet, take 1 tablet by mouth once daily, Disp: , Rfl: meloxicam (Mobic) 15 MG tablet, , Disp: , Rfl: PARoxetine (Paxil) 30 MG tablet, Take 1 tablet (30 mg) by mouth daily., Disp: 30 tablet, Rfl: 2 tamsulosin (Flomax) 0.4 MG 24 hr capsule, Take 1 capsule (0.4 mg) by mouth daily., Disp: 30 capsule, Rfl: 3 telmisartan (MIcarDIS) 20 MG tablet, Take 1 tablet (20 mg) by mouth daily. (Patient taking differently: Take 10 mg by mouth daily.), Disp: 90 tablet, Rfl: 1 Review of Systems: Review of Systems Constitutional: Negative for activity change, chills, diaphoresis, fatigue and fever. Pt states he is feeling well, states he feels his energy and stamina are improving HENT: Negative for nosebleeds and trouble swallowing. Eyes: Negative for discharge and visual disturbance. Respiratory: Negative for apnea, cough, chest tightness, shortness of breath and wheezing. Denies SOB Cardiovascular: Negative for chest pain, palpitations and leg swelling. Denies chest discomfort or palpitations Gastrointestinal: Negative for abdominal distention, abdominal pain, blood in stool, diarrhea, nausea and vomiting. Endocrine: Negative for cold intolerance and heat intolerance. Genitourinary: Negative for hematuria. Musculoskeletal: Negative for gait problem and myalgias. Skin: Negative for color change and rash. Neurological: Negative for dizziness, seizures, syncope, facial asymmetry, speech difficulty, weakness, light-headedness, numbness and headaches. Hematological: Does not bruise/bleed easily. Psychiatric/Behavioral: Negative for dysphoric mood. Physical Examination: Vitals: BP 120/78 (BP Location: Left arm, Patient Position: Sitting, BP Cuff Size: Small adult) Pulse 91 Resp 16 Ht 6' (1.829 m) Wt 222 lb 9.6 oz (101 kg) SpO2 96% BMI 30.19 kg/m Body mass index is 30.19 kg/m . Physical Exam Constitutional: Appearance: Normal appearance. Comments: Appears well compensated HENT: Head: Normocephalic. Eyes: General: Right eye: No discharge. Left eye: No discharge. Neck: Comments: No JVD Cardiovascular: Rate and Rhythm: Normal rate and regular rhythm. Heart sounds: No murmur heard. Comments: Regular, no murmer's present Pulmonary: Effort: Pulmonary effort is normal. Breath sounds: Normal breath sounds. No wheezing or rales. Comments: Clear t/o Abdominal: General: Bowel sounds are normal. There is no distension. Palpations: Abdomen is soft. Musculoskeletal: Cervical back: Neck supple. Right lower leg: No edema. Left lower leg: No edema. Comments: BLE are nonedematous Skin: General: Skin is warm. Findings: No erythema or rash. Neurological: Mental Status: He is alert and oriented to person, place, and time. Psychiatric: Behavior: Behavior normal. Laboratory Tests: Lab Results Component Value Date GLUCOSE 117 (H) 02/14/2023 CALCIUM 8.1 (L) 02/14/2023 NA 135 02/14/2023 K 3.7 02/14/2023 CO2 26 02/14/2023 CL 106 02/14/2023 BUN 25 (H) 02/14/2023 CREATININE 0.93 02/14/2023 @LASTCMP@ Lab Results Component Value Date CHOL 217 (A) 03/18/2022 CHOL 197 09/16/2021 CHOL 170 05/17/2021 Lab Results Component Value Date TRIG 93 03/18/2022 TRIG 88 09/16/2021 TRIG 79 05/17/2021 Lab Results Component Value Date HDL 55 03/18/2022 HDL 50 09/16/2021 HDL 42 05/17/2021 No results found for: LDLCALC No results found for: VLDL Lab Results Component Value Date CHOLHDLRATIO 4 03/18/2022 CHOLHDLRATIO 4 09/16/2021 CHOLHDLRATIO 4 05/17/2021 Other Testing: Cardiac Tests: Echo (date: 02/13/2023): Left Ventricle: Left ventricle size is normal. Moderately increased wall thickness. Mass index 2D is 130.1 g/m2. Findings consistent with moderate concentric hypertrophy. Low normal left ventricular systolic function. EF 3D is 52%. Global longitudinal strain is normal. Normal wall motion. Right Ventricle: Right ventricle is mildly dilated. Prominent moderator band noted. Moderately reduced systolic function. Tricuspid Valve: Normal RVSP. RVSP is 31 mmHg. Left Atrium: Left atrium is mildly dilated. LA Vol Index A/L is 35 mL/m2. Aorta: Normal sized sinuses of Valsalva. Mildly dilated annulus. Dilated ascending aorta. Ao ascending diameter is 4.0 cm. No significant valvular abnormalities. Assessment and Plan: 1. History of right bundle branch block-maintaining a sinus rhythm with a first-degree AV block, W[place] interval measured 23.9. Patient EKG February 11, 2023 -We will continue to avoid AV wilson blocking agents, remains asymptomatic. We will continue to encourage yearly EKGs. 2. Wwujvsiegkpi-oapd-uaxrgjtkkw, continues to be monitored per his PCP -History of intolerance to hydrochlorothiazide due to orthostasis 3. Mildly dilated ascending aorta-remains stable per inpatient transthoracic echo February 2023 as noted above, 4.0 cm in diameter. 4. Follow-up-6 months and as needed Carmen Calderón APRN/LAWANDA documented in this encounter [facility] [employer] 02-22-2023 Telephone encounter Note Message released to patient as written. 1. Your blood pressure may be higher as well because you are sick. Make sure you are taking your blood pressure medication daily. Stick to a low-salt diet. Make sure you are staying hydrated. Any chest pain or shortness of breath recommend ED 2 okay to schedule patient for nurse visit Patient's further questions if applicable: na Were all questions from office addressed or relayed to the patient from encounter: Yes Pt verbalized understanding and BP today was 105/75 and pt has been taking his medication. Pt declined nurse visit at this time and will call back if needed. PT has an appt 03/07/23 already. [facility] 02-22-2023 Miscellaneous Notes Message released to patient as written. 1. Your blood pressure may be higher as well because you are sick. Make sure you are taking your blood pressure medication daily. Stick to a low-salt diet. Make sure you are staying hydrated. Any chest pain or shortness of breath recommend ED 2 okay to schedule patient for nurse visit Patient's further questions if applicable: na Were all questions from office addressed or relayed to the patient from encounter: Yes Pt verbalized understanding and BP today was 105/75 and pt has been taking his medication. Pt declined nurse visit at this time and will call back if needed. PT has an appt 03/07/23 already. documented in this encounter [facility] 02-19-2023 Telephone encounter Note S: Patient called the clinical access center with complaint of +COVID. B: since A: Patient reports he tested positive for COVID last night, experiencing a runny nose, little bit of a sore throat, chest congestion, cough, occasional chills, has been fighting a fever, current temperature 100.5 (TA), has been taking Tylenol ES around the clock, also uses an overhead fan which he states helps bring his fever down, napping a lot but feels he has to. Patient vaccinated and boosted x 2, spent last weekend in the hospital for sepsis, taking amoxicillin 1000 mg TID. R: Home care advice provided. Paged electronics assembler and tester provider, Dr. Costa via secure chat- chart reviewed, Lunavidoug, standard dose #30, 0 refills, this RN phoned in prescription for Paxlovid to patient's pharmacy, [facility] at [phone] Silva Patient notified, advised not to take clonazepam while taking Paxlovid, verbalizes understanding, states he only takes medication in social situations and will not need to take it while on Paxlovid. Patient instructed to call back with worsening symptoms, concerns or questions. Reason for Disposition [1] HIGH RISK for severe COVID complications (e.g., weak immune system, age > 64 years, obesity with BMI > 25, , chronic lung disease or other chronic medical condition) AND [2] COVID symptoms (e.g., cough, fever) (Exceptions: Already seen by PCP and no new or worsening symptoms.) Protocols used: Coronavirus (COVID-19) Diagnosed or [id number]-IS [facility] 02-19-2023 Miscellaneous Notes S: Patient called the clinical access center with complaint of +COVID. B: since A: Patient reports he tested positive for COVID last night, experiencing a runny nose, little bit of a sore throat, chest congestion, cough, occasional chills, has been fighting a fever, current temperature 100.5 (TA), has been taking Tylenol ES around the clock, also uses an overhead fan which he states helps bring his fever down, napping a lot but feels he has to. Patient vaccinated and boosted x 2, spent last weekend in the hospital for sepsis, taking amoxicillin 1000 mg TID. R: Home care advice provided. Paged electronics assembler and tester provider, Dr. Costa via secure chat- chart reviewed, Paxlovid, standard dose #30, 0 refills, this RN phoned in prescription for Paxlovid to patient's pharmacy, [facility] at [phone] Silva Patient notified, advised not to take clonazepam while taking Paxlovid, verbalizes understanding, states he only takes medication in social situations and will not need to take it while on Paxlovid. Patient instructed to call back with worsening symptoms, concerns or questions. Reason for Disposition [1] HIGH RISK for severe COVID complications (e.g., weak immune system, age > 64 years, obesity with BMI > 25, , chronic lung disease or other chronic medical condition) AND [2] COVID symptoms (e.g., cough, fever) (Exceptions: Already seen by PCP and no new or worsening symptoms.) Protocols used: Coronavirus (COVID-19) Diagnosed or [id number] documented in this encounter [facility] 02-16-2023 Telephone encounter Note Spoke with pt - Surgery information given and understood D/T/L [facility] 02-16-2023 Miscellaneous Notes Spoke with pt - Surgery information given and understood D/T/L Schedule LULL and stent exchange in 2-3 weeks Name of caller requesting page:Eugenie Phone Number of caller: [phone] Facility requesting page: [address] Reason for Page: Urolithiasis Provider paged: Dr Subramanian Practice Name of paged provider: Urology Page Placed to #: Oncall Time Page was sent or provider contacted: 8:55 am Page Content: Please call Eugenie at [phone] Diagnosis Urolithiasis. Sorry, forgot to tag the patient. documented in this encounter [facility] 02-14-2023 Miscellaneous Notes Executive Housekeeper following case for Discharge Needs. Patient was discharged to home today from [facility] on oral ATB. Was following for possible home IV ATB therapy needs. PT and OT noted patient ambulating and caring for self independently. This PACC is signing off this referral due to no current C needs. Images from the original note were not included. Care Management Progress Note Patient remains on [address] today with reports of left flank pain, dizziness/fever/nausea. Urology following for urolithiasis with sepsis per consult. Left ureteral stent placement complete. BC/Urine cx + enterococcus faecalis. Continued abx for UTI. IVF. On tele. TTE ordered. Monitoring labs/lytes. Therapy recommending home with prn assist. HHC monitoring for home abx needs. Plan will be to return home, no needs. Discharge Milestones and Delays Expected Date/Time: 02/14/[address] discharge order Enter post-discharge transportation status Complete med reconciliation Request transport Case mgmt discharge readiness Expected Discharge History Expected Date/Time Set By Reviewed At 02/14/2023 BETHANY Anand 02/13/2023 10:36 AM Blood cultures positve, urine cultures positive. Receiving IV antibiotics 02/14/2023 Haresh Fournier MD 02/11/2023 4:55 PM 02/14/2023 Haresh Fournier MD 02/11/2023 1:39 PM Length of Stay (Days): 2 GMLOS: No GMLOS Documented Called report to [address] [place] [address] Executive Housekeeper following case for Discharge Needs. Referral placed to [facility] in care port to verify insurance benefits for infusion PreOp Dx ureteral calculus PostOp Dx Same Operation Cystoscopy, retrograde pyelogram, flouroscopy, left ureteral stent placement Surgeon Igor Subramanian MD Assist None EBL Minimal Drains 6 fr X 26cmJJ Kamara none Specimen none Condition To PACU This is a 72 y.o. patient who presents with a ureteral calculus. After having a discussion on treatment options, risks and benefits, the patient wishes to proceed forward with surgical intervention Patient was brought to the operating room. A thorough time out was performed and everyone present was in agreement. Patient was placed on OR table. Anesthesia and lines were maintained by the anesthesia team. Patient was placed in the dorsal lithotomy position. Prepped and draped in usual fashion. Pressure points were padded. A cystourethroscope was inserted through the urethra and the bladder was inspected. Retrograde pyelograms were performed under fluoroscopic visualization on the left side, it showed mild hydro A sensor wire was advanced to the level of the kidney. A 6 fr X 26cmJJ was advanced over the wire through the cystoscope under fluoroscopic visualization. Once in position the wire was removed. A good curl was noted in the kidney and the bladder. The bladder was emptied and patient awoken from anesthesia. LULL and stent exchange in 2-3 weeks Care Managment Initial Assessment Date: 02/12/2023 Patient Name: Nery Rodriguez : 1950 Patient Information Source of Information: Patient Name/Contact Information: MATT RODRIGUEZ [phone] SPOUSE Cognition/Language: WFL - Within Functional Limits Permission given to speak with patient paper sales representative/caregiver as indicated: Yes Confirmation of Payer with patient/family: Yes Payer Name: MEDICARE AND : Yes Confirmation of Primary Care Physician: Confirmed PCP Name: DR. COSTA Seen in last 2 years?: Yes Primary Caregiver: Self If assistance needed, confirmed caregiver ready, willing and able to care for patient at discharge: Confirmed with: Living Arrangements Current Residence: House Number of Floors 1 Number of Entry Steps: 3 Bed/Bath Levels: Both first floor Facility: Facility Name: NA Plan to Return: Yes Lives with: Spouse/significant other Support Systems: Spouse/significant other Activities of Daily Living Ambulation: Independent Bathing/Dressing: Independent Elimination/Continence/Toileting: Independent Feeding: Independent Who Assists with Activities of Daily Living: NA Instrumental Activities of Daily Living Prescription Coverage: Yes Pharmacy Used: [facility] Medication Management: Independent Transportation/Shopping: Independent Transportation Mode: Car Needs Assistance with Transportation at Discharge: No (SPOUSE) Meal Preparation: Independent Laundry/Cleaning: Independent Finances/Bill Paying: Independent Communication: Independent Types of Care Services/Equipment Utilized Care Services: Dialysis Type: NA Durable Medical Equipment: DME Provider: DENIES Patient's Goal/Discharge Plan Patient expects to be discharged to: HOME Discharge Planning Actions: Continue to follow Patient's Choice Rights and [employer] and Collaborative Relationships Disclosed as Indicated for Post-Acute Care: NA Interdisciplinary Team Engagement: Home Health Care Social Work Referral for: Additional Information: Inpatient status from home with sepsis. Admitted to [facility], blood and urine cultures obtained and pending, ivf, iv antibiotics, urology consulted, pt/ot, echo. 1/ blood cultures positive for enteroccus, npo for possible stone extraction. Ct did reveal obstructing left ureteral calculus . Tentative discharge plan is home with when medically stable. clinical rehabilitation lia[facility] for [facility] needs upon discharge. Discharge plan home vs home with [facility] when medically stable. . Shanel Ferguson RN documented in this encounter [facility] 02-14-2023 Note Formatting of this n ote might be different from the original. Executive Housekeeper following case for Discharge Needs. Patient was discharged to home today from [facility] on oral ATB. Was following for possible home IV ATB therapy needs. PT and OT noted patient ambulating and caring for self independently. This PACC is signing off this referral due to no current [facility] needs. [facility] 02-14-2023 Note Formatting of this n ote might be different from the original. Executive Housekeeper following case for Discharge Needs. Patient was discharged to home today from [facility] on oral ATB. Was following for possible home IV ATB therapy needs. PT and OT noted patient ambulating and caring for self independently. This PACC is signing off this referral due to no current C needs. [facility] 02-14-2023 Nurse Note Pt and given discharge instructions including medications, follow up appointments and all other discharge instructions. Pt denies having any further questions or needs at this time. Iv removed with catheter intact, clean dry dressing applied, pt tolerated well. Telemetry removed and placed at nurses station. Pt and walking out to 's waiting vehicle. Pt denies any further needs at this time. [facility] 02-14-2023 Nurse Note Pt and given discharge instructions including medications, follow up appointments and all other discharge instructions. Pt denies having any further questions or needs at this time. Iv removed with catheter intact, clean dry dressing applied, pt tolerated well. Telemetry removed and placed at nurses station. Pt and walking out to 's waiting vehicle. Pt denies any further needs at this time. documented in this encounter [facility] 02-13-2023 History of Present illness Narrative Images from the original note were not included. Hospitalist Progress Note 02/13/[id number]: Please secure chat me for patient care issues. [phone]: Please secure chat [facility] Hospitalist for any issues. Subjective: Admit Date: 02/11/2023 PCP: Shawanda Costa MD Room#: [id number] A Chief complaint: Fever and flank pain Interval History: No overnight issues. Denies chest pain, sob, abdominal pain, nausea, vomiting, diarrhea, constipation, fevers, or chills. Adult diet Regular; Low Sodium (2 gm) @[id number]@ 24HR INTAKE/OUTPUT: Intake/Output Summary (Last 24 hours) at 02/13/2023 1543 Last data filed at 02/13/2023 0951 Gross per 24 hour Intake 240 ml Output -- Net 240 ml Past Medical History: Past Medical History: Diagnosis Date Abnormal EKG Anxiety Enlarged prostate Hyperlipidemia Hypertension REM sleep behavior disorder LABS: CBC: Recent Labs 02/11/23 1132 02/12/231 02/13/23 0037 WBC 20.7* 16.8* 13.6* RBC 3.86* 3.63* 3.50* HGB 12.5* 11.5* 11.0* HCT 35.7* 34.2* 32.6* MCV 92.5 94.1 93.4 RDW 12.3 13.1 13.1 PLT 173 152 156 BMP: Recent Labs 02/11/23 1132 02/12/23 0411 02/13/23 0037 NA 129* 134* 132* K 3.9 3.6 4.3 CL 99 103 106 CO2 25 25 26 BUN 23* 23* 26* CREATININE 1.21 1.07 0.92 GLUCOSE 168* 114* 134* CALCIUM 8.1* 7.9* 8.0* ANIONGAP 6 5 -1* LIVER PROFILE: Recent Labs 02/11/23 1132 02/12/23 0411 02/13/23 0037 AST 32 47* 47* ALT 19 22 22 BILITOT 1.1 0.7 0.4 ALKPHOS 68 69 69 PROT 6.6 6.2* 5.8* PT/INR: No results for input(s): PROTIME, INR in the last 72 hours. CARDIAC ENZYMES: Recent Labs 02/11/23 1132 02/11/23 1244 TROPONINI 0.038* 0.038* Procalcitonin: No results found for: PROCAL COVID-19 PCR: No results for input(s): COVID19 in the last 72 hours. Objective: Vitals: BP 115/57 (BP Location: Left arm, Patient Position: Lying) Pulse (!) 45 Temp 36.8 C (98.3 F) (Temporal) Resp 14 Ht 6' (1.829 m) Wt 230 lb (104 kg) SpO2 95% BMI 31.19 kg/m Pulse Ox: SpO2 Av.8 % Min: 93 % Max: 97 % Physical Exam Constitutional: Appearance: He is ill-appearing. HENT: Head: Normocephalic and atraumatic. Mouth/Throat: Mouth: Mucous membranes are dry. Cardiovascular: Rate and Rhythm: Normal rate and regular rhythm. Pulses: Normal pulses. Heart sounds: Normal heart sounds. Pulmonary: Effort: Pulmonary effort is normal. Breath sounds: Normal breath sounds. Abdominal: General: Bowel sounds are normal. Palpations: Abdomen is soft. Tenderness: There is generalized abdominal tenderness. Medications: sodium chloride, 100 mL/hr, Last Rate: 100 mL/hr (02/12/23 0202) ampicillin, 2,000 mg, IntraVENous, Q4H fluticasone, 1 spray, Each Nostril, Daily gabapentin, 600 mg, Oral, BID losartan, 100 mg, Oral, Daily PARoxetine, 30 mg, Oral, Daily propranolol, 20 mg, Oral, BID sodium chloride 0.9%, 5-40 mL, IntraVENous, 2 times per day tamsulosin, 0.4 mg, Oral, Daily Assessment Acute pyelonephritis and left-sided ureterolithiasis with hydronephrosis Severe sepsis due to [id number] fever, elevated lactate, leukocytosis Right renal lesion 2 cm Obesity Essential hypertension Insignificant elevation of troponin-patient denies any anginal symptoms Benign prostatic hyperplasia - on Flomax Past Medical History: Diagnosis Date Abnormal EKG Anxiety Enlarged prostate Hyperlipidemia Hypertension REM sleep behavior disorder Medical Decision Making Patient is s/p cystoscopy, retrograde pyelogram, fluoroscopy, left ureteral stent placement, appreciate urology input Denies any chest pain, await 2D echocardiogram, only insignificant elevation of troponin Follow blood cultures(no growth so far) and urine cultures, showed E faecalis, antibiotic changed to ampicillin per antimicrobial stewardship recommendations, lactate improved IVF, pain control -am labs, replace lytes prn -increase activity -DVT prophylaxis: [] Lovenox [] Heparin [] SCDs [x] Encourage ambulation [] Already on Anticoagulation Anticipated Discharge - Date -February 2 - Location -Home with home health - Pending the following -echocardiogram results and duration of antibiotic Total time spent (which include face to face and non face to face encounters) : 36 minutes Toxic drug monitoring/narrow therapeutic index drug monitoring : # Drug name : # Route administered : # Method of monitoring : Extended Emergency Contact Information Primary Emergency Contact: Belle Rodriguez Address: [facility] [place] [address] [facility] Mobile Relation: Spouse NEO ISSA MD, MD Division of Hospitalist Medicine [employer] Live [facility] PAGER: Epic chat Nutrition rescreen complete. Pt assigned a level one for nutrition care. Occupational Therapy Facility/Department: [address] Occupational Therapy Initial Evaluation NAME: Nery Rodriguez : 1950 Date of Service: 02/12/2023 Discharge Recommendations: Home with assist PRN OT Equipment Recommendations Equipment Needed: No Assessment REQUIRES OT FOLLOW-UP: No No Skilled OT: Independent with functional mobility, Independent with ADL's, Safe to return home, No OT goals identified Assessment: Pt admitting 02/11 with fever and dizziness, underwent left ureteral stent placement on 02/12. Pt was previously independent with ADLs and functional mobility. At time of eval, pt remains mod I for these functional activities. Pt with no concerns for home going. No acute OT needs identified. Rec home with PRN assist. Prognosis: Good Decision Making: Low Complexity History: Pt admitting 02/11 with fever and dizziness, underwent left ureteral stent placement on 02/12. Exam: AM-PAC Assistance / Modification: mod I Activity Tolerance Activity Tolerance: Patient Tolerated treatment well Patient Diagnosis(es): The primary encounter diagnosis was Gram-negative sepsis, unspecified (HCC). Diagnoses of Dizziness, Lightheadedness, Acute cystitis without hematuria, Elevated troponin, Hyponatremia, Essential hypertension, RBBB (right bundle branch block with left anterior fascicular block), and Abnormal EKG were also pertinent to this visit. has a past medical history of Abnormal EKG, Anxiety, Enlarged prostate, Hyperlipidemia, Hypertension, and REM sleep behavior disorder. has a past surgical history that includes Cyst Removal (1969) and Cystoscopy (02/12/2023). Restrictions Restrictions/Precautions Restrictions/Precautions: General Precautions Required Braces or Orthoses?: No Vision/Hearing Vision: Impaired Vision Exceptions: Wears glasses at all times Hearing: Functional/adequate for paticipation in therapy Cognition/Orientation Overall Cognitive Status: WNL Overall Orientation Status: Within Normal Limits Subjective General Chart Reviewed: Yes Patient Assessed for Rehabilitation Services: Yes Family / Caregiver Present: Yes (spouse) Subjective Subjective: Pt supine in bed at arrival. Pleasant and agreeable. General Comments Comments: Per RN, pt ok to see. 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 No LOB noted. Functional Mobility Functional - Mobility Device: No device Activity: Other Assist Level: Modified independent Functional Mobility Comments: Pt ambulating in room and hallway without device mod I for increased caution secondary to feeling weak from not eating. Pt with no true LOB or safety concerns noted. ADL Feeding: Independent Grooming: Modified independent UE Bathing: Modified independent LE Bathing: Modified independent UE Dressing: Modified independent LE Dressing: Modified independent Toileting: Modified independent Additional Comments: Pt was previously independent with ADLs. At time of eval, pt remains independent with UB ADLs, LB ADLs, and toileting bathroom level. Pt observed to don/doff socks sitting EOB. Pt with adequate balance to complete standing aspects of ADLs. Bed mobility Supine to Sit: Independent Sit to Supine: Independent Scooting: Independent Comment: Denies dizziness. HOB elevated and no use of bed rails. Transfers Sit to stand: Independent Stand to sit: Independent Transfer Comments: Pt standing from EOB to standing without device with no LOB or safety concerns. Denies dizziness. Plan Times per Week: eval only Plan Comment: No acute OT needs identified. Safety Safety Devices in place: Yes Type of devices: All fall risk precautions in place, Call light within reach, Gait belt, Nurse notified, No alarms engaged upon entry into room, Left in bed Restraints Initially in place: No AM-PAC Score AM-PAC Inpatient Daily Activity Raw Score: 24 ADL Inpatient [facility] G-Code Modifier: CH Goals Eval only Education Education Given To: Patient, Family Education Provided: OT Role, Plan of Care Education Method: Verbal Barriers to Learning: None Education Outcome: Verbalized understanding Therapy Time Individual Co-treatment Time In 1232 Time Out 1248 Minutes 16 POC supervision transferred to rehab service department occupational therapist. Jesi Aggarwal OT Physical Therapy Facility/Department: [facility] PT Physical Therapy Initial Evaluation NAME: Nery Rodriguez : 1950 Date of Service: 02/12/2023 Discharge Recommendations: Home independently PT Equipment Recommendations Equipment Needed: No Assessment Requires PT Follow-Up: No Assessment: Nery presents with safe, independent mobility. Skilled, acute PT is not required at this time. Evaluation only. Discharge. Decision Making: Medium Complexity Barriers to Learning: None. No Skilled PT: Independent with functional mobility Barriers to Learning: None. No Skilled PT: Independent with functional mobility Activity Tolerance Activity Tolerance: Patient Tolerated treatment well Patient Diagnosis(es): The primary encounter diagnosis was Gram-negative sepsis, unspecified (HCC). Diagnoses of Dizziness, Lightheadedness, Acute cystitis without hematuria, Elevated troponin, Hyponatremia, Essential hypertension, RBBB (right bundle branch block with left anterior fascicular block), and Abnormal EKG were also pertinent to this visit. has a past medical history of Abnormal EKG, Anxiety, Enlarged prostate, Hyperlipidemia, Hypertension, and REM sleep behavior disorder. has a past surgical history that includes Cyst Removal (1969). Restrictions Restrictions/Precautions Restrictions/Precautions: General Precautions Required Braces or Orthoses?: No Vision/Hearing Vision: Impaired Vision Exceptions: Wears glasses at all times Hearing: Functional/adequate for paticipation in therapy Cognition/Orientation Overall Cognitive Status: WNL Overall Orientation Status: Within Normal Limits Subjective General Chart Reviewed: Yes Patient Assessed for Rehabilitation Services: Yes Family / Caregiver Present: No Follows Commands: Within Functional Limits Subjective Subjective: Nery was pleasent and agreeable to PT evaluation. Patient Stated Goal: Feel better and go home. 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 Gross Assessment Gross Assessment: Yes AROM: Within functional limits PROM: Within functional limits Strength: Generally decreased, functional Coordination: Within functional limits Tone: Normal Sensation: Intact Gross Assessment: Yes AROM: Within functional limits PROM: Within functional limits Strength: Generally decreased, functional Coordination: Within functional limits Tone: Normal Sensation: Intact Bed mobility Supine to Sit: Independent Sit to Supine: Independent Scooting: Independent Transfers Sit to Stand: Independent Stand to sit: Independent Ambulation Ambulation: Yes Ambulation 1 Surface 1: Level tile Device 1: No device Assistance 1: Independent Distance (ft) 1: 50 feet in room. Balance Posture: Good Sitting - Static: Good Sitting - Dynamic: Good Standing - Static: Good Standing - Dynamic: Good Plan Plan Comment: Discharge. Safety Safety Devices Safety Devices in Place: Yes Type of Devices: All fall risk precautions in place, Call light within reach, Nurse notified Outcomes Score AM-PAC Score AM-PAC Inpatient Mobility Raw Score: 24 Mobility Inpatient [facility] G-Code Modifier: CH Goals Encounter Problems Encounter Problems (Active) Pain - Adult Education Education Given To: Patient Education Provided: PT Role, Plan of Care, Discharge recommendations Education Method: Verbal Barriers to Learning: None Education Outcome: Verbalized understanding Therapy Time Individual Co-treatment Time In 0937 Time Out 0945 Minutes 8 Kan Conklin PT Images from the original note were not included. Hospitalist Progress Note 02/12/2023 [id number]: Please secure chat me for patient care issues. [phone]: Please secure chat [facility] Hospitalist for any issues. Subjective: Admit Date: 02/11/2023 PCP: Shawanda Costa MD [facility] A Chief complaint: Fever and flank pain Interval History: No overnight issues. Denies chest pain, sob, abdominal pain this a.m., nausea, vomiting, diarrhea, temperature improved this morning constipation,NPO diet NPO except: Sips of Water with Meds, Ice Chips @[id number]@ 24HR INTAKE/OUTPUT: No intake or output data in the 24 hours ending 02/12/23 0900 Past Medical History: Past Medical History: Diagnosis Date Abnormal EKG Anxiety Enlarged prostate Hyperlipidemia Hypertension REM sleep behavior disorder LABS: CBC: Recent Labs 02/11/23 1132 02/12/23 0411 WBC 20.7* 16.8* RBC 3.86* 3.63* HGB 12.5* 11.5* HCT 35.7* 34.2* MCV 92.5 94.1 RDW 12.3 13.1 PLT 173 152 BMP: Recent Labs 02/11/23 1132 02/12/23 0411 NA 129* 134* K 3.9 3.6 CL 99 103 CO2 25 25 BUN 23* 23* CREATININE 1.21 1.07 GLUCOSE 168* 114* CALCIUM 8.1* 7.9* ANIONGAP 6 5 LIVER PROFILE: Recent Labs 02/11/23 1132 02/12/23 0411 AST 32 47* ALT 19 22 BILITOT 1.1 0.7 ALKPHOS 68 69 PROT 6.6 6.2* PT/INR: No results for input(s): PROTIME, INR in the last 72 hours. CARDIAC ENZYMES: Recent Labs 02/11/23 1132 02/11/23 1244 TROPONINI 0.038* 0.038* Procalcitonin: No results found for: PROCAL COVID-19 PCR: No results for input(s): COVID19 in the last 72 hours. Objective: Vitals: BP 108/78 Pulse 61 Temp 37.1 C (98.7 F) (Temporal) Resp 16 Ht 6' (1.829 m) Wt 230 lb (104 kg) SpO2 95% BMI 31.19 kg/m Pulse Ox: SpO2 Av % Min: 92 % Max: 98 % Physical Exam Physical Exam Constitutional: Appearance: He is ill-appearing. HENT: Head: Normocephalic and atraumatic. Mouth/Throat: Mouth: Mucous membranes are dry. Cardiovascular: Rate and Rhythm: Normal rate and regular rhythm. Pulses: Normal pulses. Heart sounds: Normal heart sounds. Pulmonary: Effort: Pulmonary effort is normal. Breath sounds: Normal breath sounds. Abdominal: General: Bowel sounds are normal. Palpations: Abdomen is soft. Tenderness: There is generalized abdominal tenderness. Medications: sodium chloride, 100 mL/hr, Last Rate: 100 mL/hr (02/12/23 0202) cefTRIAXone, 2,000 mg, IntraVENous, q24h fluticasone, 1 spray, Each Nostril, Daily gabapentin, 600 mg, Oral, BID losartan, 100 mg, Oral, Daily PARoxetine, 30 mg, Oral, Daily propranolol, 20 mg, Oral, BID sodium chloride 0.9%, 5-40 mL, IntraVENous, 2 times per day tamsulosin, 0.4 mg, Oral, Daily Assessment Acute pyelonephritis and left-sided ureterolithiasis with hydronephrosis Severe sepsis due to [id number]-[id number] fever, elevated lactate, leukocytosis Right renal lesion 2 cm Obesity Essential hypertension Insignificant elevation of troponin-patient denies any anginal symptoms Benign prostatic hyperplasia - on Flomax Medical Decision Making Patient is s/p cystoscopy, retrograde pyelogram, fluoroscopy, left ureteral stent placement, appreciate urology input Denies any chest pain, await 2D echocardiogram, only insignificant elevation of troponin Follow blood cultures(no growth to date 2) and urine cultures, (pending ), lactate improved IVF, pain control -am labs, replace lytes prn -increase activity -DVT prophylaxis: [] Lovenox [] Heparin [] SCDs [x] Encourage ambulation [] Already on Anticoagulation Anticipated Discharge - Date -February 1 or 2 - Location -Home - Pending the following -clinical improvement Total time spent (which include face to face and non face to face encounters) : 36 minutes Toxic drug monitoring/narrow therapeutic index drug monitoring : # Drug name : # Route administered : # Method of monitoring : Extended Emergency Contact Information Primary Emergency Contact: Belle Rodriguez Address: [facility] [place] [address] [facility] Mobile Relation: Spouse NEO ISSA MD, MD Division of Hospitalist Medicine [facility] PAGER: Epic chat Pt arrived on unit. Ax o x4. Cooperative. documented in this encounter [facility] 02-13-2023 Note Formatting of this n ote is different from the original. Images from the original note were not included. Care Management Progress Note Patient remains on [facility] today with reports of left flank pain, dizziness/fever/nausea. Urology following for urolithiasis with sepsis per consult. Left ureteral stent placement complete. BC/Urine cx + enterococcus faecalis. Continued abx for UTI. IVF. On tele. TTE ordered. Monitoring labs/lytes. Therapy recommending home with prn assist. [facility] monitoring for home abx needs. Plan will be to return home, no needs. Discharge Milestones and Delays Expected Date/Time: 02/14/[address] discharge order Enter post-discharge transportation status Complete med reconciliation Request transport Case mgmt discharge readiness Expected Discharge History Expected Date/Time Set By Reviewed At 02/14/2023 BETHANY Anand 02/13/2023 10:36 AM Blood cultures positve, urine cultures positive. Receiving IV antibiotics 02/14/2023 Haresh Fournier MD 02/11/2023 4:55 PM 02/14/2023 Haresh Fournier MD 02/11/2023 1:39 PM Length of Stay (Days): 2 GMLOS: No GMLOS Documented [facility] 02-13-2023 Note Formatting of this n ote is different from the original. Images from the original note were not included. Care Management Progress Note Patient remains on [facility] [place] today with reports of left flank pain, dizziness/fever/nausea. Urology following for urolithiasis with sepsis per consult. Left ureteral stent placement complete. BC/Urine cx + enterococcus faecalis. Continued abx for UTI. IVF. On tele. TTE ordered. Monitoring labs/lytes. Therapy recommending home with prn assist. [facility] monitoring for home abx needs. Plan will be to return home, no needs. Discharge Milestones and Delays Expected Date/Time: 02/14/[address] discharge order Enter post-discharge transportation status Complete med reconciliation Request transport Case mgmt discharge readiness Expected Discharge History Expected Date/Time Set By Reviewed At 02/14/2023 BETHANY Anand 02/13/2023 10:36 AM Blood cultures positve, urine cultures positive. Receiving IV antibiotics 02/14/2023 Haresh Fournier MD 02/11/2023 4:55 PM 02/14/2023 Haresh Fournier MD 02/11/2023 1:39 PM Length of Stay (Days): 2 GMLOS: No GMLOS Documented [facility] 02-12-2023 Note Formatting of this n ote might be different from the original. Called report to [facility] 02-12-2023 Note Formatting of this n ote might be different from the original. Called report to [facility] 02-12-2023 Note Formatting of this n ote might be different from the original. Executive Housekeeper following case for Discharge Needs. Referral placed to [facility] in care port to verify insurance benefits for infusion [facility] 02-12-2023 Note Formatting of this n ote might be different from the original. Executive Housekeeper following case for Discharge Needs. Referral placed to [facility] in care port to verify insurance benefits for infusion [facility] 02-12-2023 Telephone encounter Note Schedule LULL and stent exchange in 2-3 weeks [facility] Work Phone: 02-12-2023 Consult note Formatting of th is note is different from the original. Urology Consult Date: 02/12/2023 Patient Name: Nery Rodriguez Date of : 1950 Admit Date: 02/11/2023 Age: 72 y.o. PCP: Shawanda Costa MD Chief Complaint Patient presents with Dizziness Fever Narrative: The patient is a 72 y.o. male presents with left flank pain, had a fever in the ER yesterday with a WBC of 20. HE has had left sided pressure. Denies hematuria. + Nausea. Past Medical History: Diagnosis Date Abnormal EKG Anxiety Enlarged prostate Hyperlipidemia Hypertension REM sleep behavior disorder Past Surgical History: Procedure Laterality Date CYST REMOVAL 1969 [facility] cyst @[facility]@ @[facility]@ Medications sodium chloride 0.9% (NS) flush 5-40 mL (10 mL IntraVENous Given 02/11/232053) sodium chloride 0.9% (NS) flush 5-40 mL (has no administration in time range) sodium chloride 0.9 % infusion (has no administration in time range) losartan (Cozaar) tablet 100 mg (100 mg Oral Not Given 02/11/231829) propranolol (Inderal) tablet 20 mg (20 mg Oral Given 02/11/232053) tamsulosin (Flomax) 24 hr capsule 0.4 mg (0.4 mg Oral Not Given 02/11/231829) PARoxetine (Paxil) tablet 30 mg (30 mg Oral Not Given 02/11/231829) fluticasone (Flonase) nasal spray 1 spray (1 spray Each Nostril Not Given 02/11/231899) clonazePAM (KlonoPIN) tablet 0.25 mg (has no administration in time range) acetaminophen (Tylenol) tablet 650 mg (has no administration in time range) Or acetaminophen (Tylenol) suppository 650 mg (has no administration in time range) ondansetron ODT (Zofran-ODT) disintegrating tablet 4 mg (has no administration in time range) Or ondansetron (Zofran) injection 4 mg (has no administration in time range) polyethylene glycol (PEG) 3350 (Miralax) packet 17 g (has no administration in time range) cefTRIAXone (Rocephin) 2,000 mg in sodium chloride 0.9 % 50 mL IVPB Mini-Bag Plus (has no administration in time range) morphine sulfate (PF) injection 2 mg (has no administration in time range) ketorolac (Toradol) injection 15 mg (has no administration in time range) sodium chloride 0.9 % infusion (100 mL/hr IntraVENous New Bag 02/12/23 0202) gabapentin (Neurontin) tablet 600 mg (600 mg Oral Given 02/12/23 0403) lactated ringers bolus 3,120 mL (0 mL IntraVENous Stopped 02/11/23 1213) cefTRIAXone (Rocephin) 2 g in sodium chloride 0.9 % 50 mL IVPB Mini-Bag Plus (0 g IntraVENous Stopped 02/11/23 1213) acetaminophen (Tylenol) tablet 650 mg (650 mg Oral Given 02/11/23 1619) sodium chloride 0.9 % bolus 500 mL (0 mL IntraVENous Stopped 02/12/23 0200) Allergies Allergen Reactions Other Seasonal Pollen Extract Social History: Social History Tobacco Use Smoking status: Former Packs/day: 1.00 Types: Cigarettes Start date: 11/26/1984 Quit date: 11/28/2008 Years since quittin.2 Smokeless tobacco: Never Substance Use Topics Alcohol use: Not Currently ROS: Review of Systems Physical Exam: @BONITA@ Vitals: 02/12/23 0406 BP: 108/78 Pulse: 61 Resp: 16 Temp: 37.1 C (98.7 F) SpO2: 95% Physical Exam Labs: CBC: Recent Labs 02/11/23 1132 02/12/23 0411 WBC 20.7* 16.8* HGB 12.5* 11.5* HCT 35.7* 34.2* MCV 92.5 94.1 RBC 3.86* 3.63* RDW 12.3 13.1 PLT 173 152 BMP: Recent Labs 02/11/23 1132 02/12/23 0411 NA 129* 134* K 3.9 3.6 CL 99 103 CO2 25 25 BUN 23* 23* CREATININE 1.21 1.07 ANIONGAP 6 5 Coagulation: No results found for: PROTIME, INR, APTT Lactic acid: No components found for: LACTA Radiology: Obstructing left sided stone Assessment and Plan: 72 y.o. male Urolithiasis and sepsis PLAN: I was called this AM regarding the patient Getting scheduled for urgent left ureteral stent placement Abx primary team Will need stone treatment in near future after UTI resolved Igor Subramanian MD 02/12/2023 10:26 AM [facility] Work Phone: 02-12-2023 Consult note Formatting of th is note is different from the original. Urology Consult Date: 02/12/2023 Patient Name: Nery Rodriguez Date of : 1950 Admit Date: 02/11/2023 Age: 72 y.o. PCP: Shawanda Costa MD Chief Complaint Patient presents with Dizziness Fever Narrative: The patient is a 72 y.o. male presents with left flank pain, had a fever in the ER yesterday with a WBC of 20. HE has had left sided pressure. Denies hematuria. + Nausea. Past Medical History: Diagnosis Date Abnormal EKG Anxiety Enlarged prostate Hyperlipidemia Hypertension REM sleep behavior disorder Past Surgical History: Procedure Laterality Date CYST REMOVAL 1969 [facility] cyst @[facility]@ @[facility]@ Medications sodium chloride 0.9% (NS) flush 5-40 mL (10 mL IntraVENous Given 02/11/232053) sodium chloride 0.9% (NS) flush 5-40 mL (has no administration in time range) sodium chloride 0.9 % infusion (has no administration in time range) losartan (Cozaar) tablet 100 mg (100 mg Oral Not Given 02/11/231829) propranolol (Inderal) tablet 20 mg (20 mg Oral Given 02/11/232053) tamsulosin (Flomax) 24 hr capsule 0.4 mg (0.4 mg Oral Not Given 02/11/231829) PARoxetine (Paxil) tablet 30 mg (30 mg Oral Not Given 02/11/231829) fluticasone (Flonase) nasal spray 1 spray (1 spray Each Nostril Not Given 02/11/231899) clonazePAM (KlonoPIN) tablet 0.25 mg (has no administration in time range) acetaminophen (Tylenol) tablet 650 mg (has no administration in time range) Or acetaminophen (Tylenol) suppository 650 mg (has no administration in time range) ondansetron ODT (Zofran-ODT) disintegrating tablet 4 mg (has no administration in time range) Or ondansetron (Zofran) injection 4 mg (has no administration in time range) polyethylene glycol (PEG) 3350 (Miralax) packet 17 g (has no administration in time range) cefTRIAXone (Rocephin) 2,000 mg in sodium chloride 0.9 % 50 mL IVPB Mini-Bag Plus (has no administration in time range) morphine sulfate (PF) injection 2 mg (has no administration in time range) ketorolac (Toradol) injection 15 mg (has no administration in time range) sodium chloride 0.9 % infusion (100 mL/hr IntraVENous New Bag 02/12/23 0202) gabapentin (Neurontin) tablet 600 mg (600 mg Oral Given 02/12/23 0403) lactated ringers bolus 3,120 mL (0 mL IntraVENous Stopped 02/11/23 121) cefTRIAXone (Rocephin) 2 g in sodium chloride 0.9 % 50 mL IVPB Mini-Bag Plus (0 g IntraVENous Stopped 02/11/23 121) acetaminophen (Tylenol) tablet 650 mg (650 mg Oral Given 02/11/23 1619) sodium chloride 0.9 % bolus 500 mL (0 mL IntraVENous Stopped 02/12/23 0200) Allergies Allergen Reactions Other Seasonal Pollen Extract Social History: Social History Tobacco Use Smoking status: Former Packs/day: 1.00 Types: Cigarettes Start date: 11/26/1984 Quit date: 11/28/2008 Years since quittin.2 Smokeless tobacco: Never Substance Use Topics Alcohol use: Not Currently ROS: Review of Systems Physical Exam: @EDTRRENY@ Vitals: 02/12/23 0406 BP: 108/78 Pulse: 61 Resp: 16 Temp: 37.1 C (98.7 F) SpO2: 95% Physical Exam Labs: CBC: Recent Labs 02/11/23 1132 02/12/23 0411 WBC 20.7* 16.8* HGB 12.5* 11.5* HCT 35.7* 34.2* MCV 92.5 94.1 RBC 3.86* 3.63* RDW 12.3 13.1 PLT 173 152 BMP: Recent Labs 02/11/23 1132 02/12/23 0411 NA 129* 134* K 3.9 3.6 CL 99 103 CO2 25 25 BUN 23* 23* CREATININE 1.21 1.07 ANIONGAP 6 5 Coagulation: No results found for: PROTIME, INR, APTT Lactic acid: No components found for: LACTA Radiology: Obstructing left sided stone Assessment and Plan: 72 y.o. male Urolithiasis and sepsis PLAN: I was called this AM regarding the patient Getting scheduled for urgent left ureteral stent placement Abx primary team Will need stone treatment in near future after UTI resolved Igor Subramanian MD 02/12/2023 10:26 AM documented in this encounter [facility] 02-12-2023 Note Formatting of this n ote might be different from the original. PreOp Dx ureteral calculus PostOp Dx Same Operation Cystoscopy, retrograde pyelogram, flouroscopy, left ureteral stent placement Surgeon Igor Subramanian MD Assist None EBL Minimal Drains 6 fr X 26cmJJ Kamara none Specimen none Condition To PACU This is a 72 y.o. patient who presents with a ureteral calculus. After having a discussion on treatment options, risks and benefits, the patient wishes to proceed forward with surgical intervention Patient was brought to the operating room. A thorough time out was performed and everyone present was in agreement. Patient was placed on OR table. Anesthesia and lines were maintained by the anesthesia team. Patient was placed in the dorsal lithotomy position. Prepped and draped in usual fashion. Pressure points were padded. A cystourethroscope was inserted through the urethra and the bladder was inspected. Retrograde pyelograms were performed under fluoroscopic visualization on the left side, it showed mild hydro A sensor wire was advanced to the level of the kidney. A 6 fr X 26cmJJ was advanced over the wire through the cystoscope under fluoroscopic visualization. Once in position the wire was removed. A good curl was noted in the kidney and the bladder. The bladder was emptied and patient awoken from anesthesia. LULL and stent exchange in 2-3 weeks [facility] 02-12-2023 Note Formatting of this n ote might be different from the original. PreOp Dx ureteral calculus PostOp Dx Same Operation Cystoscopy, retrograde pyelogram, flouroscopy, left ureteral stent placement Surgeon Igor Subramanian MD Assist None EBL Minimal Drains 6 fr X 26cmJJ Kamara none Specimen none Condition To PACU This is a 72 y.o. patient who presents with a ureteral calculus. After having a discussion on treatment options, risks and benefits, the patient wishes to proceed forward with surgical intervention Patient was brought to the operating room. A thorough time out was performed and everyone present was in agreement. Patient was placed on OR table. Anesthesia and lines were maintained by the anesthesia team. Patient was placed in the dorsal lithotomy position. Prepped and draped in usual fashion. Pressure points were padded. A cystourethroscope was inserted through the urethra and the bladder was inspected. Retrograde pyelograms were performed under fluoroscopic visualization on the left side, it showed mild hydro A sensor wire was advanced to the level of the kidney. A 6 fr X 26cmJJ was advanced over the wire through the cystoscope under fluoroscopic visualization. Once in position the wire was removed. A good curl was noted in the kidney and the bladder. The bladder was emptied and patient awoken from anesthesia. LULL and stent exchange in 2-3 weeks [facility] 02-12-2023 Note Formatting of this n ote might be different from the original. Care Managment Initial Assessment Date: 02/12/2023 Patient Name: Nery Rodriguez : 1950 Patient Information Source of Information: Patient Name/Contact Information: MATT RODRIGUEZ [phone] SPOUSE Cognition/Language: WFL - Within Functional Limits Permission given to speak with patient paper sales representative/caregiver as indicated: Yes Confirmation of Payer with patient/family: Yes Payer Name: MEDICARE AND : Yes Confirmation of Primary Care Physician: Confirmed PCP Name: DR. COSTA Seen in last 2 years?: Yes Primary Caregiver: Self If assistance needed, confirmed caregiver ready, willing and able to care for patient at discharge: Confirmed with: Living Arrangements Current Residence: House Number of Floors 1 Number of Entry Steps: 3 Bed/Bath Levels: Both first floor Facility: Facility Name: NA Plan to Return: Yes Lives with: Spouse/significant other Support Systems: Spouse/significant other Activities of Daily Living Ambulation: Independent Bathing/Dressing: Independent Elimination/Continence/Toileting: Independent Feeding: Independent Who Assists with Activities of Daily Living: NA Instrumental Activities of Daily Living Prescription Coverage: Yes Pharmacy Used: [facility] Medication Management: Independent Transportation/Shopping: Independent Transportation Mode: Car Needs Assistance with Transportation at Discharge: No (SPOUSE) Meal Preparation: Independent Laundry/Cleaning: Independent Finances/Bill Paying: Independent Communication: Independent Types of Care Services/Equipment Utilized Care Services: Dialysis Type: NA Durable Medical Equipment: DME Provider: DENIES Patient's Goal/Discharge Plan Patient expects to be discharged to: HOME Discharge Planning Actions: Continue to follow Patient's Choice Rights and [employer] and Collaborative Relationships Disclosed as Indicated for Post-Acute Care: NA Interdisciplinary Team Engagement: Home Health Care Social Work Referral for: Additional Information: Inpatient status from home with sepsis. Admitted to [facility], blood and urine cultures obtained and pending, ivf, iv antibiotics, urology consulted, pt/ot, echo. 1/2 blood cultures positive for enteroccus, npo for possible stone extraction. Ct did reveal obstructing left ureteral calculus . Tentative discharge plan is home with when medically stable. [facility] needs upon discharge. Discharge plan home vs home with [facility] when medically stable. . Shanel Ferguson RN [facility] 02-12-2023 Note Formatting of this n ote might be different from the original. Care Managment Initial Assessment Date: 02/12/2023 Patient Name: Nery Rodriguez : 1950 Patient Information Source of Information: Patient Name/Contact Information: MATT RODRIGUEZ [phone] SPOUSE Cognition/Language: WFL - Within Functional Limits Permission given to speak with patient paper sales representative/caregiver as indicated: Yes Confirmation of Payer with patient/family: Yes Payer Name: MEDICARE AND : Yes Confirmation of Primary Care Physician: Confirmed PCP Name: DR. COSTA Seen in last 2 years?: Yes Primary Caregiver: Self If assistance needed, confirmed caregiver ready, willing and able to care for patient at discharge: Confirmed with: Living Arrangements Current Residence: House Number of Floors 1 Number of Entry Steps: 3 Bed/Bath Levels: Both first floor Facility: Facility Name: NA Plan to Return: Yes Lives with: Spouse/significant other Support Systems: Spouse/significant other Activities of Daily Living Ambulation: Independent Bathing/Dressing: Independent Elimination/Continence/Toileting: Independent Feeding: Independent Who Assists with Activities of Daily Living: NA Instrumental Activities of Daily Living Prescription Coverage: Yes Pharmacy Used: [facility] Medication Management: Independent Transportation/Shopping: Independent Transportation Mode: Car Needs Assistance with Transportation at Discharge: No (SPOUSE) Meal Preparation: Independent Laundry/Cleaning: Independent Finances/Bill Paying: Independent Communication: Independent Types of Care Services/Equipment Utilized Care Services: Dialysis Type: NA Durable Medical Equipment: DME Provider: DENIES Patient's Goal/Discharge Plan Patient expects to be discharged to: HOME Discharge Planning Actions: Continue to follow Patient's Choice Rights and [employer] and Collaborative Relationships Disclosed as Indicated for Post-Acute Care: NA Interdisciplinary Team Engagement: Home Health Care Social Work Referral for: Additional Information: Inpatient status from home with sepsis. Admitted to [facility], blood and urine cultures obtained and pending, ivf, iv antibiotics, urology consulted, pt/ot, echo. 1/2 blood cultures positive for enteroccus, npo for possible stone extraction. Ct did reveal obstructing left ureteral calculus . Tentative discharge plan is home with when medically stable. clinical rehabilitation liaison updated via [facility] to follow for iv antibiotic needs upon discharge. Discharge plan home vs home with [facility] when medically stable. . Shanel Ferguson RN [facility] 02-12-2023 Telephone encounter Note Name of caller requesting page:Eugenie Phone Number of caller: [phone] Facility requesting page: [place] [address] [place] [address] Reason for Page: Urolithiasis Provider paged: Dr Subramanian Practice Name of paged provider: Urology Page Placed to #: Oncall Time Page was sent or provider contacted: 8:55 am Page Content: Please call Eugenie at [phone] Diagnosis Urolithiasis. Sorry, forgot to tag the patient. [facility] 02-11-2023 History and physical note Images from the original note were not included. Attending History and Physical Admit Date: 02/11/2023 PCP: Shawanda Costa MD CHIEF COMPLAINT: I have fever Reason for Admission: Acute pyelonephritis with nephrolithiasis Severe sepsis, mild elevated troponin History Obtained From: patient HISTORY OF PRESENT ILLNESS: Nery is a 72 y.o. male with past medical history below who presents with chief complaint listed above. Patient has a history of kidney stones but currently has a high fever since this morning with flank pain on the left side , came to the [place] emergency department, CT scan showed 6 mm left ureteral stone with hydronephrosis, there is also a right renal lesion incidental finding , patient was given ceftriaxone and blood and urine cultures were obtained , he denies chest pain, sob, abdominal pain, nausea, vomiting, diarrhea, constipation, Will admit for further evaluation and management. Past Medical History: Past Medical History: Diagnosis Date Abnormal EKG Anxiety Enlarged prostate Hyperlipidemia Hypertension REM sleep behavior disorder Past Surgical History: Past Surgical History: Procedure Laterality Date CYST REMOVAL 1970 Tailbone cyst Social History: Social History Socioeconomic History Marital status: Spouse name: Not on file Number of children: Not on file Years of education: Not on file Highest education level: Not on file Occupational History Not on file Tobacco Use Smoking status: Former Packs/day: 1.00 Types: Cigarettes Start date: 11/26/1984 Quit date: 11/28/2008 Years since quittin.2 Smokeless tobacco: Never Vaping Use Vaping Use: Never used Substance and Sexual Activity Alcohol use: Not Currently Drug use: Never Sexual activity: Not on file Other Topics Concern Not on file Social History Narrative Not on file Social Determinants of Health Financial Resource Strain: Not on file Food Insecurity: Not on file Transportation Needs: Not on file Physical Activity: Not on file Stress: Not on file Social Connections: Not on file Intimate Partner Violence: Not At Risk Fear of Current or Ex-Partner: No Emotionally Abused: No Physically Abused: No Sexually Abused: No Housing Stability: Not on file Family History: Family History Problem Relation Name Age of Onset Parkinsonism Mother High Blood Pressure Mother Heart disease Father Bipolar disorder Sister Medications Prior to Admission: No current facility-administered medications on file prior to encounter. Current Outpatient Medications on File Prior to Encounter Medication Sig Dispense Refill clonazePAM (KlonoPIN) 0.5 MG tablet Take 0.5 tablets (0.25 mg) by mouth Daily as needed for anxiety. 8 tablet 0 cyclobenzaprine (Flexeril) 10 MG tablet Take 1 tablet (10 mg) by mouth Nightly as needed for muscle spasms. 30 tablet 1 fluticasone (Flonase) 50 MCG/ACT nasal spray Administer 1 spray into each nostril daily. 16 g 3 gabapentin (Neurontin) 400 MG capsule Take 5 before bedime 150 capsule 3 loratadine (Claritin) 5 mg split tablet take 1 tablet by mouth once daily meloxicam (Mobic) 15 MG tablet Take 1 tablet (15 mg) by mouth daily. 30 tablet 0 PARoxetine (Paxil) 30 MG tablet Take 1 tablet (30 mg) by mouth daily. 30 tablet 2 propranolol (Inderal) 20 MG tablet Take 1 tablet (20 mg) by mouth 2 times daily. 60 tablet 2 tamsulosin (Flomax) 0.4 MG 24 hr capsule Take 1 capsule (0.4 mg) by mouth daily. 30 capsule 3 telmisartan (MIcarDIS) 20 MG tablet Take 1 tablet (20 mg) by mouth daily. 30 tablet 3 [DISCONTINUED] PARoxetine (Paxil) 30 MG tablet Take 1 tablet (30 mg) by mouth daily. 30 tablet 2 Allergies: Allergies Allergen Reactions Other Seasonal Pollen Extract REVIEW OF SYSTEMS: Constitutional: Positive for fever, chills, activity change and unexpected weight change. HEENT: Negative for congestion, postnasal drip and sneezing. Eyes: Negative for itching and visual disturbance. Respiratory: Negative for apnea, cough, choking, chest tightness, shortness of breath, wheezing and stridor. Cardiovascular: Negative for chest pain. Gastrointestinal: Negative for nausea, vomiting, positive for left-sided abdominal pain, negative for diarrhea and blood in stool. Genitourinary: Negative for dysuria, frequency and positive for left flank pain. Musculoskeletal: Negative for myalgias and joint swelling. Skin: Negative for rash. Neurological: Negative for dizziness, tremors, seizures, syncope, facial asymmetry, speech difficulty, weakness, numbness and headaches. Hematological: Negative for adenopathy. Psychiatric/Behavioral: Negative for suicidal ideas, behavioral problems, self-injury and dysphoric mood. Vitals: BP (!) 97/47 Pulse 67 Temp (!) 38.9 C (102.1 F) (Oral) Resp 18 Ht 6' (1.829 m) Wt 230 lb (104 kg) SpO2 92% BMI 31.19 kg/m BMI Classification: Obese (BMI 30.0-39.9) Pulse Ox: SpO2 Av.7 % Min: 92 % Max: 98 % Supplemental O2: PHYSICAL EXAM: Physical Exam Constitutional: Appearance: He is ill-appearing. HENT: Head: Normocephalic and atraumatic. Mouth/Throat: Mouth: Mucous membranes are dry. Cardiovascular: Rate and Rhythm: Normal rate and regular rhythm. Pulses: Normal pulses. Heart sounds: Normal heart sounds. Pulmonary: Effort: Pulmonary effort is normal. Breath sounds: Normal breath sounds. Abdominal: General: Bowel sounds are normal. Palpations: Abdomen is soft. Tenderness: There is generalized abdominal tenderness. DATA: CBC: Recent Labs 02/11/23 1132 WBC 20.7* RBC 3.86* HGB 12.5* HCT 35.7* MCV 92.5 RDW 12.3 PLT 173 BMP: Recent Labs 02/11/23 1132 NA 129* K 3.9 CL 99 CO2 25 BUN 23* CREATININE 1.21 GLUCOSE 168* CALCIUM 8.1* ANIONGAP 6 LIVER PROFILE: Recent Labs 02/11/23 1132 AST 32 ALT 19 BILITOT 1.1 ALKPHOS 68 PROT 6.6 PT/INR: No results for input(s): PROTIME, INR in the last 72 hours. CARDIAC ENZYMES: Recent Labs 02/11/23 1132 02/11/23 1244 TROPONINI 0.038* 0.038* Procalcitonin: No results found for: PROCAL Urine Culture: No results found for this or any previous visit. COVID-19 PCR: No results for input(s): COVID19 in the last 72 hours. I reviewed: [x] laboratory results [x] radiographic results At the time of today's encounter. Pt was advised of the results. IMPRESSION: Acute pyelonephritis and left-sided ureterolithiasis with hydronephrosis Severe sepsis due to [id number] fever, elevated lactate, leukocytosis Right renal lesion 2 cm Obesity Essential hypertension Insignificant elevation of troponin-patient denies any anginal symptoms Medical Decision Making: -Admit the patient to medical floor, IV ceftriaxone, IV fluids, n.p.o. from midnight Urology consult, pain control, 2D echo in a.m. -PT/OT eval/increase activity -am labs, replace lytes prn -vitals per routine -home meds as ordered -DVT prophylaxis: [] Lovenox [] Heparin [x] SCDs [x] Encourage ambulation [] Already on Anticoagulation Anticipated Discharge - Date - - Location - - Pending the following - Total time spent (which include face to face and non face to face encounters) : 55 minutes Toxic drug monitoring/narrow therapeutic index drug monitoring : # Drug name : # Route administered : # Method of monitoring : Extended Emergency Contact Information Primary Emergency Contact: Belle Rodriguez Address: [address] [place] [address], [place] [address] [facility] Relation: Spouse Code status: No Order -see below for additional orders, further recommendations to follow Orders Placed This Encounter Procedures Blood culture #1 - Suspected Infection Blood culture #2 - Suspected Infection Urine culture SARS-CoV-2, Flu A/B, and RSV Combo XR chest [address] abdomen pelvis wo IV contrast Lactic acid, sepsis, with reflex if elevated Comprehensive metabolic panel CBC auto differential Urinalysis complete with reflex to Culture Troponin I Complete Urinalysis Lactic acid, sepsis, with reflex if elevated Troponin I Adult diet Regular; Low Sodium (2 gm) Pulse Oximetry Vital Signs Telemetry monitoring for Sepsis ECG 12 lead Insert peripheral IV Admit to inpatient Please forward a copy of this H&P to the patient's PCP. Thank you. [facility] 02-11-2023 History and physical note Images from the original note were not included. Attending History and Physical Admit Date: 02/11/2023 PCP: Shawanda Costa MD CHIEF COMPLAINT: I have fever Reason for Admission: Acute pyelonephritis with nephrolithiasis Severe sepsis, mild elevated troponin History Obtained From: patient HISTORY OF PRESENT ILLNESS: Nery is a 72 y.o. male with past medical history below who presents with chief complaint listed above. Patient has a history of kidney stones but currently has a high fever since this morning with flank pain on the left side , came to the [place] emergency department, CT scan showed 6 mm left ureteral stone with hydronephrosis, there is also a right renal lesion incidental finding , patient was given ceftriaxone and blood and urine cultures were obtained , he denies chest pain, sob, abdominal pain, nausea, vomiting, diarrhea, constipation, Will admit for further evaluation and management. Past Medical History: Past Medical History: Diagnosis Date Abnormal EKG Anxiety Enlarged prostate Hyperlipidemia Hypertension REM sleep behavior disorder Past Surgical History: Past Surgical History: Procedure Laterality Date CYST REMOVAL 1970 Tailbone cyst Social History: Social History Socioeconomic History Marital status: Spouse name: Not on file Number of children: Not on file Years of education: Not on file Highest education level: Not on file Occupational History Not on file Tobacco Use Smoking status: Former Packs/day: 1.00 Types: Cigarettes Start date: 11/26/1984 Quit date: 11/28/2008 Years since quittin.2 Smokeless tobacco: Never Vaping Use Vaping Use: Never used Substance and Sexual Activity Alcohol use: Not Currently Drug use: Never Sexual activity: Not on file Other Topics Concern Not on file Social History Narrative Not on file Social Determinants of Health Financial Resource Strain: Not on file Food Insecurity: Not on file Transportation Needs: Not on file Physical Activity: Not on file Stress: Not on file Social Connections: Not on file Intimate Partner Violence: Not At Risk Fear of Current or Ex-Partner: No Emotionally Abused: No Physically Abused: No Sexually Abused: No Housing Stability: Not on file Family History: Family History Problem Relation Name Age of Onset Parkinsonism Mother High Blood Pressure Mother Heart disease Father Bipolar disorder Sister Medications Prior to Admission: No current facility-administered medications on file prior to encounter. Current Outpatient Medications on File Prior to Encounter Medication Sig Dispense Refill clonazePAM (KlonoPIN) 0.5 MG tablet Take 0.5 tablets (0.25 mg) by mouth Daily as needed for anxiety. 8 tablet 0 cyclobenzaprine (Flexeril) 10 MG tablet Take 1 tablet (10 mg) by mouth Nightly as needed for muscle spasms. 30 tablet 1 fluticasone (Flonase) 50 MCG/ACT nasal spray Administer 1 spray into each nostril daily. 16 g 3 gabapentin (Neurontin) 400 MG capsule Take 5 before bedime 150 capsule 3 loratadine (Claritin) 5 mg split tablet take 1 tablet by mouth once daily meloxicam (Mobic) 15 MG tablet Take 1 tablet (15 mg) by mouth daily. 30 tablet 0 PARoxetine (Paxil) 30 MG tablet Take 1 tablet (30 mg) by mouth daily. 30 tablet 2 propranolol (Inderal) 20 MG tablet Take 1 tablet (20 mg) by mouth 2 times daily. 60 tablet 2 tamsulosin (Flomax) 0.4 MG 24 hr capsule Take 1 capsule (0.4 mg) by mouth daily. 30 capsule 3 telmisartan (MIcarDIS) 20 MG tablet Take 1 tablet (20 mg) by mouth daily. 30 tablet 3 [DISCONTINUED] PARoxetine (Paxil) 30 MG tablet Take 1 tablet (30 mg) by mouth daily. 30 tablet 2 Allergies: Allergies Allergen Reactions Other Seasonal Pollen Extract REVIEW OF SYSTEMS: Constitutional: Positive for fever, chills, activity change and unexpected weight change. HEENT: Negative for congestion, postnasal drip and sneezing. Eyes: Negative for itching and visual disturbance. Respiratory: Negative for apnea, cough, choking, chest tightness, shortness of breath, wheezing and stridor. Cardiovascular: Negative for chest pain. Gastrointestinal: Negative for nausea, vomiting, positive for left-sided abdominal pain, negative for diarrhea and blood in stool. Genitourinary: Negative for dysuria, frequency and positive for left flank pain. Musculoskeletal: Negative for myalgias and joint swelling. Skin: Negative for rash. Neurological: Negative for dizziness, tremors, seizures, syncope, facial asymmetry, speech difficulty, weakness, numbness and headaches. Hematological: Negative for adenopathy. Psychiatric/Behavioral: Negative for suicidal ideas, behavioral problems, self-injury and dysphoric mood. Vitals: BP (!) 97/47 Pulse 67 Temp (!) 38.9 C (102.1 F) (Oral) Resp 18 Ht 6' (1.829 m) Wt 230 lb (104 kg) SpO2 92% BMI 31.19 kg/m BMI Classification: Obese (BMI 30.0-39.9) Pulse Ox: SpO2 Av.7 % Min: 92 % Max: 98 % Supplemental O2: PHYSICAL EXAM: Physical Exam Constitutional: Appearance: He is ill-appearing. HENT: Head: Normocephalic and atraumatic. Mouth/Throat: Mouth: Mucous membranes are dry. Cardiovascular: Rate and Rhythm: Normal rate and regular rhythm. Pulses: Normal pulses. Heart sounds: Normal heart sounds. Pulmonary: Effort: Pulmonary effort is normal. Breath sounds: Normal breath sounds. Abdominal: General: Bowel sounds are normal. Palpations: Abdomen is soft. Tenderness: There is generalized abdominal tenderness. DATA: CBC: Recent Labs 02/11/23 1132 WBC 20.7* RBC 3.86* HGB 12.5* HCT 35.7* MCV 92.5 RDW 12.3 PLT 173 BMP: Recent Labs 02/11/23 1132 NA 129* K 3.9 CL 99 CO2 25 BUN 23* CREATININE 1.21 GLUCOSE 168* CALCIUM 8.1* ANIONGAP 6 LIVER PROFILE: Recent Labs 02/11/23 1132 AST 32 ALT 19 BILITOT 1.1 ALKPHOS 68 PROT 6.6 PT/INR: No results for input(s): PROTIME, INR in the last 72 hours. CARDIAC ENZYMES: Recent Labs 02/11/23 1132 02/11/23 1244 TROPONINI 0.038* 0.038* Procalcitonin: No results found for: PROCAL Urine Culture: No results found for this or any previous visit. COVID-19 PCR: No results for input(s): COVID19 in the last 72 hours. I reviewed: [x] laboratory results [x] radiographic results At the time of today's encounter. Pt was advised of the results. IMPRESSION: Acute pyelonephritis and left-sided ureterolithiasis with hydronephrosis Severe sepsis due to [id number] fever, elevated lactate, leukocytosis Right renal lesion 2 cm Obesity Essential hypertension Insignificant elevation of troponin-patient denies any anginal symptoms Medical Decision Making: -Admit the patient to medical floor, IV ceftriaxone, IV fluids, n.p.o. from midnight Urology consult, pain control, 2D echo in a.m. -PT/OT eval/increase activity -am labs, replace lytes prn -vitals per routine -home meds as ordered -DVT prophylaxis: [] Lovenox [] Heparin [x] SCDs [x] Encourage ambulation [] Already on Anticoagulation Anticipated Discharge - Date - - Location - - Pending the following - Total time spent (which include face to face and non face to face encounters) : 55 minutes Toxic drug monitoring/narrow therapeutic index drug monitoring : # Drug name : # Route administered : # Method of monitoring : Extended Emergency Contact Information Primary Emergency Contact: Belle Rodriguez Address: [address] [place] [id number] [facility] Relation: Spouse Code status: No Order -see below for additional orders, further recommendations to follow Orders Placed This Encounter Procedures Blood culture #1 - Suspected Infection Blood culture #2 - Suspected Infection Urine culture SARS-CoV-2, Flu A/B, and RSV Combo XR chest [address] abdomen pelvis wo IV contrast Lactic acid, sepsis, with reflex if elevated Comprehensive metabolic panel CBC auto differential Urinalysis complete with reflex to Culture Troponin I Complete Urinalysis Lactic acid, sepsis, with reflex if elevated Troponin I Adult diet Regular; Low Sodium (2 gm) Pulse Oximetry Vital Signs Telemetry monitoring for Sepsis ECG 12 lead Insert peripheral IV Admit to inpatient Please forward a copy of this H&P to the patient's PCP. Thank you. documented in this encounter [facility] 02-11-2023 Emergency department Note EMS here and report given. Pt alert and pleasant, denies pain. Jailyn Samaniego RN 02/11/23 162 [facility] 02-11-2023 Emergency department Note EMS here and report given. Pt alert and pleasant, denies pain. Jailyn Samaniego RN 02/11/23 162 Aware that is admitted to [facility] [place] [facility] and waiting for bed assignment. Alert and pleasant, talkative with at bedside. Verbalized understanding that may take several hours to get bed assignment. Voices no needs at present. Jailyn Samaniego RN 02/11/23 1353 MTS paged for admission Jailyn Samaniego RN 02/11/23 1323 EMERGENCY DEPARTMENT ENCOUNTER Pt Name: Nery Rodriguez Birthdate 1950 Date of evaluation: 02/11/2023 ED Provider: Haresh Fournier MD CHIEF COMPLAINT Chief Complaint Patient presents with Dizziness Fever HISTORY OF PRESENT ILLNESS (Location/Symptom, Timing/Onset, Context/Setting, Quality, Duration, Modifying Factors, Severity) Note limiting factors. I wore appropriate PPE for the entirety of this encounter. HPI Nery Rodriguez is a 72 y.o. male who presents to the emergency department with chief complaint of patient with a history of right renal cyst, previous kidney stone, hypertension, ascending aortic aneurysm, right bundle branch block presents with having a kidney stone last week which he felt got better but now he is having fevers up to 104, generalized weakness fatigue and some lightheadedness. No chest pain no shortness of breath. Denies cough nausea, vomiting, diarrhea or focal neurologic complaints. States his urine has been much darker than normal and he does have some mild left flank tenderness Nursing Notes were reviewed. Limitations to history: None Outside historians: Significant other REVIEW OF SYSTEMS Review of Systems Constitutional: Negative for chills and fever. HENT: Negative for ear pain and sore throat. Eyes: Negative for pain and visual disturbance. Respiratory: Negative for cough and shortness of breath. Cardiovascular: Negative for chest pain and palpitations. Gastrointestinal: Positive for nausea. Negative for abdominal pain, diarrhea and vomiting. Genitourinary: Positive for flank pain. Negative for dysuria and hematuria. Musculoskeletal: Negative for arthralgias and back pain. Skin: Negative for color change and rash. Neurological: Positive for dizziness, weakness and light-headedness. Negative for seizures, syncope, facial asymmetry, numbness and headaches. Psychiatric/Behavioral: Negative for agitation, behavioral problems and confusion. All other systems reviewed and are negative. Pertinent positives and negatives as per HPI. PAST MEDICAL HISTORY Past Medical History: Diagnosis Date Abnormal EKG Anxiety Enlarged prostate Hyperlipidemia Hypertension REM sleep behavior disorder SURGICAL HISTORY Past Surgical History: Procedure Laterality Date CYST REMOVAL 1970 Tailbone cyst CURRENT MEDICATIONS Previous Medications CLONAZEPAM (KLONOPIN) 0.5 MG TABLET Take 0.5 tablets (0.25 mg) by mouth Daily as needed for anxiety. CYCLOBENZAPRINE (FLEXERIL) 10 MG TABLET Take 1 tablet (10 mg) by mouth Nightly as needed for muscle spasms. FLUTICASONE (FLONASE) 50 MCG/ACT NASAL SPRAY Administer 1 spray into each nostril daily. GABAPENTIN (NEURONTIN) 400 MG CAPSULE Take 5 before bedime LORATADINE (CLARITIN) 5 MG SPLIT TABLET take 1 tablet by mouth once daily MELOXICAM (MOBIC) 15 MG TABLET Take 1 tablet (15 mg) by mouth daily. PAROXETINE (PAXIL) 30 MG TABLET Take 1 tablet (30 mg) by mouth daily. PROPRANOLOL (INDERAL) 20 MG TABLET Take 1 tablet (20 mg) by mouth 2 times daily. TAMSULOSIN (FLOMAX) 0.4 MG 24 HR CAPSULE Take 1 capsule (0.4 mg) by mouth daily. TELMISARTAN (MICARDIS) 20 MG TABLET Take 1 tablet (20 mg) by mouth daily. ALLERGIES Other and Pollen extract FAMILY HISTORY Family History Problem Relation Name Age of Onset Parkinsonism Mother High Blood Pressure Mother Heart disease Father Bipolar disorder Sister SOCIAL HISTORY Social History Socioeconomic History Marital status: Tobacco Use Smoking status: Former Packs/day: 1.00 Types: Cigarettes Start date: 11/26/1984 Quit date: 11/28/2008 Years since quittin.2 Smokeless tobacco: Never Vaping Use Vaping Use: Never used Substance and Sexual Activity Alcohol use: Not Currently Drug use: Never SCREENINGS PHYSICAL EXAM ED Triage Vitals [02/11/23 1112] Temp Heart Rate Resp BP 37.9 C (100.2 F) 77 16 103/65 SpO2 Temp Source Heart Rate Source Patient Position 98 % Oral -- -- BP Location FiO2 (%) -- -- Physical Exam Vitals and nursing note reviewed. Constitutional: Appearance: Normal appearance. HENT: Head: Normocephalic and atraumatic. Nose: Nose normal. No rhinorrhea. Mouth/Throat: Mouth: Mucous membranes are moist. Pharynx: No posterior oropharyngeal erythema. Eyes: Extraocular Movements: Extraocular movements intact. Conjunctiva/sclera: Conjunctivae normal. Pupils: Pupils are equal, round, and reactive to light. Cardiovascular: Rate and Rhythm: Normal rate. Heart sounds: No murmur heard. Pulmonary: Effort: No respiratory distress. Breath sounds: Normal breath sounds. No wheezing. Abdominal: General: Abdomen is flat. Palpations: Abdomen is soft. Tenderness: There is no abdominal tenderness. There is left CVA tenderness. There is no right CVA tenderness or rebound. Musculoskeletal: General: Normal range of motion. Right lower leg: No edema. Left lower leg: No edema. Skin: General: Skin is warm and dry. Capillary Refill: Capillary refill takes less than 2 seconds. Findings: No rash. Neurological: General: No focal deficit present. Mental Status: He is alert and oriented to person, place, and time. Sensory: No sensory deficit. Motor: No weakness. Psychiatric: Mood and Affect: Mood normal. Behavior: Behavior normal. DIAGNOSTIC RESULTS Procedures/EKG: EKG was reviewed by myself. Physician EKG interpretation can be found in [facility] ECG notes normal sinus rhythm with no ST segment elevations RADIOLOGY (Per Emergency Physician): Chest x-ray notes no infiltrates or effusions. CT scan notes hydronephrosis with 6 mm UPJ stone on the left. There is some edema surrounding the kidney and hydronephrosis. Appendix is normal Chest x-ray notes no infiltrates or effusion Interpretation per the Radiologist below, if available at the time of this note: XR chest 1 view (Results Pending) CT abdomen pelvis wo IV contrast (Results Pending) ED BEDSIDE ULTRASOUND: Performed by ED Physician - none LABS: Labs Reviewed BLOOD CULTURE BLOOD CULTURE URINE CULTURE LACTIC ACID, SEPSIS WITH REFLEX IF ELEVATED LACTIC ACID, SEPSIS WITH REFLEX IF ELEVATED COMPREHENSIVE METABOLIC PANEL CBC WITH AUTO DIFFERENTIAL COMPLETE URINALYSIS WITH REFLEX TO CULTURE Narrative: The following orders were created for panel order Urinalysis complete with reflex to Culture. Procedure Abnormality Status --------- ------ Complete Urinalysis[[id number]] Please view results for these tests on the individual orders. TROPONIN I COMPLETE URINALYSIS All other labs were within normal range or not returned as of this dictation. EMERGENCY DEPARTMENT COURSE and DIFFERENTIAL DIAGNOSIS/MDM: Vitals: Vitals: 02/11/23 1112 BP: 103/65 Pulse: 77 Resp: 16 Temp: 37.9 C (100.2 F) TempSrc: Oral SpO2: 98% Weight: 104 kg (230 lb) Height: 1.829 m (6') Diagnoses as of 02/11/23 1757 Gram-negative sepsis, unspecified (HCC) Dizziness Lightheadedness Acute cystitis without hematuria Elevated troponin Hyponatremia The patient presented with chief complaint of presented with lightheadedness fever to 104 and some left flank pain. The differential diagnosis associated with this patient's presentation includes infected kidney stone versus pyelonephritis versus diverticulitis versus urinary tract infection. Our workup consisted of ordering/reviewing: Lab work urinalysis CT scan of the abdomen pelvis with contrast chest x-ray cardiac evaluation. Diagnostic tests considered but not performed: CT scan of the chest To aid in management, I performed an independent interpretation of EKG(s) as noted above Xray(s) as noted above CT scan(s) as noted above. I also reviewed external records from Outpatient labs and studies including past medical history and treatment. Does have a cardiac history. Consideration for escalation of care with: Admission/observation patient has infected kidney stone and also has elevated troponin he will need to be admitted. The patient will be Admitted. Patient is in agreement with this plan. Patient's care was impacted by Hypertension. Prescription medications considered but not prescribed: Is admitted has been given pain medication Medications sodium chloride 0.9% (NS) flush 5-40 mL (has no administration in time range) sodium chloride 0.9% (NS) flush 5-40 mL (has no administration in time range) sodium chloride 0.9 % infusion (has no administration in time range) lactated ringers bolus 3,120 mL (has no administration in time range) cefTRIAXone (Rocephin) 2 g in sodium chloride 0.9 % 50 mL IVPB Mini-Bag Plus (has no administration in time range) REVAL: Patient feeling better after liter fluid he is gotten 2 doses of pain medication he has an infected stone we have started Rocephin we did a septic work-up on him and he is being admitted at [facility] CRITICAL CARE TIME Total Critical Care time was 35 minutes, excluding separately reportable procedures. There was a high probability of clinically significant/life threatening deterioration in the patient's condition which required my urgent intervention. CONSULTS: None PROCEDURES: Unless otherwise noted below, none Procedures Patients symptoms are consistent with sepsis, severe sepsis, or septic shock (If yes use .sepsiscoremeasure): yes FINAL IMPRESSION No diagnosis found. DISPOSITION PATIENT REFERRED TO: No follow-up provider specified. DISCHARGE MEDICATIONS: New Prescriptions No medications on file (Comment: Please note this report has been produced using speech recognition software and may contain errors related to that system including errors in grammar, punctuation, and spelling, as well as words and phrases that may be inappropriate. If there are any questions or concerns please feel free to contact the dictating provider for clarification.) Haresh Fournier MD (electronically signed) Emergency Medicine Provider Haresh Fournier MD 02/11/23 1800 Steady gait to room 6, States had recent kidney stone and since Monday has had fever and dark urine. Also c/o general weakness, dizziness and double vision for 2 days. A&O x 3, EKG done on arrival to room. States fell yesterday due to weakness but denies injury or LOC. documented in this encounter [facility] 02-11-2023 Emergency department Note Aware that is admitted to [place] and waiting for bed assignment. Alert and pleasant, talkative with at bedside. Verbalized understanding that may take several hours to get bed assignment. Voices no needs at present. Jailyn Samaniego RN 02/11/23 1353 [facility] 02-11-2023 Emergency department Note MTS paged for admission Jailyn Samaniego RN 02/11/23 1325 [facility] 02-11-2023 Emergency department Triage note Steady gait to room 6, States had recent kidney stone and since Monday has had fever and dark urine. Also c/o general weakness, dizziness and double vision for 2 days. A&O x 3, EKG done on arrival to room. States fell yesterday due to weakness but denies injury or LOC. [facility] 02-11-2023 Physician Emergency department Note EMERGENCY DEPARTMENT ENCOUNTER Pt Name: Nery Rodriguez Birthdate 1950 Date of evaluation: 02/11/2023 ED Provider: Haresh Fournier MD CHIEF COMPLAINT Chief Complaint Patient presents with Dizziness Fever HISTORY OF PRESENT ILLNESS (Location/Symptom, Timing/Onset, Context/Setting, Quality, Duration, Modifying Factors, Severity) Note limiting factors. I wore appropriate PPE for the entirety of this encounter. HPI Nery Rodriguez is a 72 y.o. male who presents to the emergency department with chief complaint of patient with a history of right renal cyst, previous kidney stone, hypertension, ascending aortic aneurysm, right bundle branch block presents with having a kidney stone last week which he felt got better but now he is having fevers up to 104, generalized weakness fatigue and some lightheadedness. No chest pain no shortness of breath. Denies cough nausea, vomiting, diarrhea or focal neurologic complaints. States his urine has been much darker than normal and he does have some mild left flank tenderness Nursing Notes were reviewed. Limitations to history: None Outside historians: Significant other REVIEW OF SYSTEMS Review of Systems Constitutional: Negative for chills and fever. HENT: Negative for ear pain and sore throat. Eyes: Negative for pain and visual disturbance. Respiratory: Negative for cough and shortness of breath. Cardiovascular: Negative for chest pain and palpitations. Gastrointestinal: Positive for nausea. Negative for abdominal pain, diarrhea and vomiting. Genitourinary: Positive for flank pain. Negative for dysuria and hematuria. Musculoskeletal: Negative for arthralgias and back pain. Skin: Negative for color change and rash. Neurological: Positive for dizziness, weakness and light-headedness. Negative for seizures, syncope, facial asymmetry, numbness and headaches. Psychiatric/Behavioral: Negative for agitation, behavioral problems and confusion. All other systems reviewed and are negative. Pertinent positives and negatives as per HPI. PAST MEDICAL HISTORY Past Medical History: Diagnosis Date Abnormal EKG Anxiety Enlarged prostate Hyperlipidemia Hypertension REM sleep behavior disorder SURGICAL HISTORY Past Surgical History: Procedure Laterality Date CYST REMOVAL 1970 Tailbone cyst CURRENT MEDICATIONS Previous Medications CLONAZEPAM (KLONOPIN) 0.5 MG TABLET Take 0.5 tablets (0.25 mg) by mouth Daily as needed for anxiety. CYCLOBENZAPRINE (FLEXERIL) 10 MG TABLET Take 1 tablet (10 mg) by mouth Nightly as needed for muscle spasms. FLUTICASONE (FLONASE) 50 MCG/ACT NASAL SPRAY Administer 1 spray into each nostril daily. GABAPENTIN (NEURONTIN) 400 MG CAPSULE Take 5 before bedime LORATADINE (CLARITIN) 5 MG SPLIT TABLET take 1 tablet by mouth once daily MELOXICAM (MOBIC) 15 MG TABLET Take 1 tablet (15 mg) by mouth daily. PAROXETINE (PAXIL) 30 MG TABLET Take 1 tablet (30 mg) by mouth daily. PROPRANOLOL (INDERAL) 20 MG TABLET Take 1 tablet (20 mg) by mouth 2 times daily. TAMSULOSIN (FLOMAX) 0.4 MG 24 HR CAPSULE Take 1 capsule (0.4 mg) by mouth daily. TELMISARTAN (MICARDIS) 20 MG TABLET Take 1 tablet (20 mg) by mouth daily. ALLERGIES Other and Pollen extract FAMILY HISTORY Family History Problem Relation Name Age of Onset Parkinsonism Mother High Blood Pressure Mother Heart disease Father Bipolar disorder Sister SOCIAL HISTORY Social History Socioeconomic History Marital status: Tobacco Use Smoking status: Former Packs/day: 1.00 Types: Cigarettes Start date: 11/26/1984 Quit date: 11/28/2008 Years since quittin.2 Smokeless tobacco: Never Vaping Use Vaping Use: Never used Substance and Sexual Activity Alcohol use: Not Currently Drug use: Never SCREENINGS PHYSICAL EXAM ED Triage Vitals [02/11/23 1112] Temp Heart Rate Resp BP 37.9 C (100.2 F) 77 16 103/65 SpO2 Temp Source Heart Rate Source Patient Position 98 % Oral -- -- BP Location FiO2 (%) -- -- Physical Exam Vitals and nursing note reviewed. Constitutional: Appearance: Normal appearance. HENT: Head: Normocephalic and atraumatic. Nose: Nose normal. No rhinorrhea. Mouth/Throat: Mouth: Mucous membranes are moist. Pharynx: No posterior oropharyngeal erythema. Eyes: Extraocular Movements: Extraocular movements intact. Conjunctiva/sclera: Conjunctivae normal. Pupils: Pupils are equal, round, and reactive to light. Cardiovascular: Rate and Rhythm: Normal rate. Heart sounds: No murmur heard. Pulmonary: Effort: No respiratory distress. Breath sounds: Normal breath sounds. No wheezing. Abdominal: General: Abdomen is flat. Palpations: Abdomen is soft. Tenderness: There is no abdominal tenderness. There is left CVA tenderness. There is no right CVA tenderness or rebound. Musculoskeletal: General: Normal range of motion. Right lower leg: No edema. Left lower leg: No edema. Skin: General: Skin is warm and dry. Capillary Refill: Capillary refill takes less than 2 seconds. Findings: No rash. Neurological: General: No focal deficit present. Mental Status: He is alert and oriented to person, place, and time. Sensory: No sensory deficit. Motor: No weakness. Psychiatric: Mood and Affect: Mood normal. Behavior: Behavior normal. DIAGNOSTIC RESULTS Procedures/EKG: EKG was reviewed by myself. Physician EKG interpretation can be found in [facility] ECG notes normal sinus rhythm with no ST segment elevations RADIOLOGY (Per Emergency Physician): Chest x-ray notes no infiltrates or effusions. CT scan notes hydronephrosis with 6 mm UPJ stone on the left. There is some edema surrounding the kidney and hydronephrosis. Appendix is normal Chest x-ray notes no infiltrates or effusion Interpretation per the Radiologist below, if available at the time of this note: XR chest 1 view (Results Pending) CT abdomen pelvis wo IV contrast (Results Pending) ED BEDSIDE ULTRASOUND: Performed by ED Physician - none LABS: Labs Reviewed BLOOD CULTURE BLOOD CULTURE URINE CULTURE LACTIC ACID, SEPSIS WITH REFLEX IF ELEVATED LACTIC ACID, SEPSIS WITH REFLEX IF ELEVATED COMPREHENSIVE METABOLIC PANEL CBC WITH AUTO DIFFERENTIAL COMPLETE URINALYSIS WITH REFLEX TO CULTURE Narrative: The following orders were created for panel order Urinalysis complete with reflex to Culture. Procedure Abnormality Status --------- ------ Complete Urinalysis[[id number]] Please view results for these tests on the individual orders. TROPONIN I COMPLETE URINALYSIS All other labs were within normal range or not returned as of this dictation. EMERGENCY DEPARTMENT COURSE and DIFFERENTIAL DIAGNOSIS/MDM: Vitals: Vitals: 02/11/23 1112 BP: 103/65 Pulse: 77 Resp: 16 Temp: 37.9 C (100.2 F) TempSrc: Oral SpO2: 98% Weight: 104 kg (230 lb) Height: 1.829 m (6') Diagnoses as of 02/11/23 1757 Gram-negative sepsis, unspecified (HCC) Dizziness Lightheadedness Acute cystitis without hematuria Elevated troponin Hyponatremia The patient presented with chief complaint of presented with lightheadedness fever to 104 and some left flank pain. The differential diagnosis associated with this patient's presentation includes infected kidney stone versus pyelonephritis versus diverticulitis versus urinary tract infection. Our workup consisted of ordering/reviewing: Lab work urinalysis CT scan of the abdomen pelvis with contrast chest x-ray cardiac evaluation. Diagnostic tests considered but not performed: CT scan of the chest To aid in management, I performed an independent interpretation of EKG(s) as noted above Xray(s) as noted above CT scan(s) as noted above. I also reviewed external records from Outpatient labs and studies including past medical history and treatment. Does have a cardiac history. Consideration for escalation of care with: Admission/observation patient has infected kidney stone and also has elevated troponin he will need to be admitted. The patient will be Admitted. Patient is in agreement with this plan. Patient's care was impacted by Hypertension. Prescription medications considered but not prescribed: Is admitted has been given pain medication Medications sodium chloride 0.9% (NS) flush 5-40 mL (has no administration in time range) sodium chloride 0.9% (NS) flush 5-40 mL (has no administration in time range) sodium chloride 0.9 % infusion (has no administration in time range) lactated ringers bolus 3,120 mL (has no administration in time range) cefTRIAXone (Rocephin) 2 g in sodium chloride 0.9 % 50 mL IVPB Mini-Bag Plus (has no administration in time range) REVAL: Patient feeling better after liter fluid he is gotten 2 doses of pain medication he has an infected stone we have started Rocephin we did a septic work-up on him and he is being admitted at [place] CRITICAL CARE TIME Total Critical Care time was 35 minutes, excluding separately reportable procedures. There was a high probability of clinically significant/life threatening deterioration in the patient's condition which required my urgent intervention. CONSULTS: None PROCEDURES: Unless otherwise noted below, none Procedures Patients symptoms are consistent with sepsis, severe sepsis, or septic shock (If yes use .sepsiscoremeasure): yes FINAL IMPRESSION No diagnosis found. DISPOSITION PATIENT REFERRED TO: No follow-up provider specified. DISCHARGE MEDICATIONS: New Prescriptions No medications on file (Comment: Please note this report has been produced using speech recognition software and may contain errors related to that system including errors in grammar, punctuation, and spelling, as well as words and phrases that may be inappropriate. If there are any questions or concerns please feel free to contact the dictating provider for clarification.) Haresh Fournier MD (electronically signed) Emergency Medicine Provider Haresh Fournier MD 02/11/23 1800 [facility] 02-02-2023 Telephone encounter Note We have been unable to reach your patient to schedule their test. Test Name: Physical Therapy 1st Attempt: 01.31.23 2nd Attempt: 02.01.23 3rd Attempt: 02.02.23 [facility] 02-02-2023 Miscellaneous Notes We have been unable to reach your patient to schedule their test. Test Name: Physical Therapy 1st Attempt: 418.23 2nd Attempt: 4. 3rd Attempt: 02.02.23 documented in this encounter [facility] 01-24-2023 History of Present illness Narrative Images from the original note were not included. [facility] [address] [facility] [address] Dept: [phone] Dept Loc: [phone] Breanna Tolliver MD Thank you for your kind request for a neurological consultation on this patient. CHIEF COMPLAINT: Chief Complaint Patient presents with New Patient Tremors in both hands and head HISTORY OF PRESENT ILLNESS: The patient is a 72 y.o. person who presents with tremors. He reports that he would notice this under distress starting as early as age 36. He reports that he has had progression in recent years in the hands so that it is difficult to perform fine motor skills. His handwriting is shaky. He reports that he is having trouble with using silverware, more when outside. He is recently noticing a tremor in the head as well. No tremulousness to the voice. No dysphagia. No trouble standing up or walking. No recent falls, but he did have falls when his clonazepam dose was lowered. He feels that in his hands the left has the shaking worse than the right. He is off of Abilify and that has not affected the tremor. He reports that his is reporting that he is having acting out his dreams. He reports that once it caused him to pull his 's hair. Another time it caused him to injure his head. He reports that he saw a neurologist after this happened and he was put on gabapentin cut the events down, but they still occur about four hours after he goes to bed. He denies side effects from the gabapentin. He reports that he had declined a sleep study when the PSG was offered because of his social phobia. He reports that he is sleepy during the day. The patient reports excessive daytime sleepiness. Snoring?Yse Tired? (Tired, Fatigued, or Sleepy during the daytime) Yes Observed? (Stop Breathing or Choking/Gasping during your sleep)No Pressure? (High blood pressure meds?)Yes Body Mass Index is 28 or greater?Yes Age greater than 50?YEs Neck size (Men >17 in, Women >16 in)Yes Gender Male? Yes STOP BANG score 7 Past Medical History: has a past medical history of Abnormal EKG, Anxiety, Enlarged prostate, Hyperlipidemia, Hypertension, and REM sleep behavior disorder. Past Surgical History: has a past surgical history that includes Cyst Removal (1969). Medications: Current Outpatient Medications: clonazePAM (KlonoPIN) 0.5 MG tablet, Take 0.5 tablets (0.25 mg) by mouth Daily as needed for anxiety., Disp: 8 tablet, Rfl: 0 cyclobenzaprine (Flexeril) 10 MG tablet, Take 1 tablet (10 mg) by mouth Nightly as needed for muscle spasms., Disp: 30 tablet, Rfl: 1 fluticasone (Flonase) 50 MCG/ACT nasal spray, Administer 1 spray into each nostril daily., Disp: 16 g, Rfl: 3 gabapentin (Neurontin) 400 MG capsule, Take 5 before bedime, Disp: 150 capsule, Rfl: 3 loratadine (Claritin) 5 mg split tablet, take 1 tablet by mouth once daily, Disp: , Rfl: PARoxetine (Paxil) 30 MG tablet, Take 1 tablet (30 mg) by mouth daily., Disp: 30 tablet, Rfl: 2 tamsulosin (Flomax) 0.4 MG 24 hr capsule, Take 1 capsule (0.4 mg) by mouth daily., Disp: 30 capsule, Rfl: 3 telmisartan (MIcarDIS) 20 MG tablet, Take 1 tablet (20 mg) by mouth daily., Disp: 30 tablet, Rfl: 3 propranolol (Inderal) 20 MG tablet, Take 1 tablet (20 mg) by mouth 2 times daily., Disp: 60 tablet, Rfl: 2 Allergies: Other Social History: Social History Socioeconomic History Marital status: Spouse name: Not on file Number of children: Not on file Years of education: Not on file Highest education level: Not on file Occupational History Not on file Tobacco Use Smoking status: Former Packs/day: 1.00 Types: Cigarettes Start date: 11/26/1984 Quit date: 11/28/2008 Years since quittin.1 Smokeless tobacco: Never Vaping Use Vaping Use: Never used Substance and Sexual Activity Alcohol use: Not Currently Drug use: Never Sexual activity: Not on file Other Topics Concern Not on file Social History Narrative Not on file Social Determinants of Health Financial Resource Strain: Not on file Food Insecurity: Not on file Transportation Needs: Not on file Physical Activity: Not on file Stress: Not on file Social Connections: Not on file Intimate Partner Violence: Not on file Housing Stability: Not on file Family History: Family History Problem Relation Name Age of Onset Parkinsonism Mother High Blood Pressure Mother Heart disease Father Bipolar disorder Sister REVIEW OF SYSTEMS: Review of Systems Constitutional: Negative for appetite change, chills, diaphoresis, fatigue, fever and unexpected weight change. HENT: Negative for dental problem and mouth sores. Eyes: Negative for discharge and itching. Respiratory: Negative for chest tightness and shortness of breath. Cardiovascular: Positive for chest pain and palpitations. Negative for leg swelling. Gastrointestinal: Negative for abdominal pain, nausea, rectal pain and vomiting. Endocrine: Negative for polydipsia, polyphagia and polyuria. Genitourinary: Negative for decreased urine volume, flank pain and genital sores. Musculoskeletal: Positive for back pain and neck pain. Negative for arthralgias. Skin: Negative for color change. Allergic/Immunologic: Negative for food allergies and immunocompromised state. Neurological: Positive for light-headedness. Negative for dizziness, syncope, weakness and headaches. Hematological: Negative for adenopathy. Does not bruise/bleed easily. Psychiatric/Behavioral: Negative for agitation, behavioral problems, confusion, decreased concentration, sleep disturbance and suicidal ideas. Answers submitted by the patient for this visit: Neurological Problem Questionnaire (Submitted on 01/18/2023) Chief Complaint: Neurologic complaint altered mental status: No clumsiness: Yes focal sensory loss: No focal weakness: No loss of balance: No memory loss: No near-syncope: Yes slurred speech: No visual change: No Chronicity: chronic Onset: more than 1 year ago Onset quality: gradually Progression since onset: waxing and waning auditory change: Yes aura: No bladder incontinence: Yes bowel incontinence: No vertigo: No Treatments tried: neck support, position change Improvement on treatment: moderate PHYSICAL EXAM: Vitals: BP 120/72 (BP Location: Left arm, Patient Position: Sitting, BP Cuff Size: Large adult) Pulse 80 Ht 6' 1 (1.854 m) Wt 231 lb 3.2 oz (105 kg) BMI 30.50 kg/m General Appearance: Patient is in no apparent distress. Head is normocephalic, atraumatic Cardiovascular: Regular rate and rhythm. No heart murmurs. No carotid bruit Neurologic: Mentation: Alert and oriented x 3 to person, place and time. Speech and Language: Speech and language normal Concentration and Attention: Concentration normal Memory: Memory grossly normal Fund of Knowledge: Fund of knowledge normal Cranial Nerves: II, III, IV, V, , VII, VIII, IX, X, XI, XII tested and were intact including fundoscopic exam (optic discs) and visual field to confrontation. Motor: Strength:Strength 5 out of 5 with normal tone Alternating Movements: Normal Cogwheel Rigidity: None Tone: Tone is normal Tremor / Involuntary Movements: 3 different tremors. He has a postural and kinetic and vertical tremor in both hands that is equal in amplitude and frequency. He has a kinetic tremor in the head that matches the frequency of tremor #1 in the hands. He has a a torsional tremor in the left hand if he holds a posture that is not on the right. On the other hand, his Curly-Q drawing is c/w a rhythmic, parkinsonian tremor Deep Tendon Reflexes: 1 out of 4 symmetrical in all four limbs. Sensory: Normal sensation upper and lower extremities Coordination: Normal coordination upper and lower extremities Gait and Station: Station is normal. Gait is normal DATA [id number] Imaging ACCESSION EXAM DATE/TIME PROCEDURE ORDERING PROVIDER [id number] 07/18/2022 12:53 EDT MRI Abdomen w/ + w/o MD QUINTERO JOSHUA B Contrast CPT code 13017 Reason For Exam (MRI Abdomen w/ + w/o Contrast) Other specified disorders of kidney and ureter Report MRI ABDOMEN WITHOUT AND WITH CONTRAST (WITH ATTENTION TO THE KIDNEYS): CLINICAL INDICATION: Follow-up for right renal lesion. TECHNIQUE: Transaxial T1 and T2 gradient echo, fast T2 and fast T2 fat suppression as well as coronal T1 gradient echo and fast T2 sequences were performed along with diffusion-weighted sequences through the abdomen. Dynamic contrast-enhanced T1 sequence during injection of 11 mL gadolinium along with delayed postcontrast transaxial and coronal T1 sequences were performed as well. Comparison: 11/15/2021 FINDINGS: Limitations: Motion artifact on several sequences. Liver: Normal size and contour. Multiple hepatic cysts are again demonstrated within the imaged portions of the liver. These appear fairly similar to prior study. No suspicious liver lesions identified Biliary tree: Gallbladder appears within normal limits. No biliary dilatation. Spleen: Normal Adrenals:No discrete mass or nodule Pancreas: Homogeneous enhancement without adjacent stranding. No pathologic ductal dilatation. Kidneys: Demonstrate symmetric enhancement without obstructive uropathy. Simple appearing cyst midpole right kidney measuring up to 5.4 cm. Cystic lesion with heterogeneous slightly T2 hyperintense signal and intermediate to slightly T1 hypointense signal with heterogeneous enhancement measures about 2.0 x 1.6 cm, axial sequence 1200 image 193. This is remeasured by myself on prior study at 1.9 x 1.6 cm. Additional findings: Visualized small bowel is not abnormally dilated. Mild amount of retained colonic stool. Abdominal aorta is normal in caliber. Major venous structures enhance normally. No ascites or focal fluid collection. No suspicious bulky adenopathy. Mild degenerative spondylosis in the visualized spine with slight leftward scoliotic curvature in the lumbar spine. Magnetic Resonance Imaging Report IMPRESSION: 1. 2.0 cm enhancing lesion, right kidney, overall without significant interval change from 11/15/2021. 2. Multiple liver cysts a few of which demonstrate fine internal septation. No suspicious liver lesions within the imaged portions. Report Dictated on --- Final --- CBC: Lab Results Component Value Date WBC 4.9 12/29/2022 RBC 4.35 (L) 12/29/2022 HGB 13.9 12/29/2022 HCT 40.1 12/29/2022 MCV 92.2 12/29/2022 MCH 32.0 12/29/2022 MCHC 34.7 12/29/2022 RDW 12.3 12/29/2022 PLT 222 12/29/2022 MPV 9.1 12/29/2022 CMP: Lab Results Component Value Date NA 140 12/29/2022 K 4.0 12/29/2022 CL 108 (H) 12/29/2022 CO2 32 (H) 12/29/2022 BUN 14 12/29/2022 CREATININE 0.93 12/29/2022 CREATININE 0.89 03/18/2022 GLUCOSE 102 (H) 12/29/2022 PROT 7.2 12/29/2022 CALCIUM 9.3 12/29/2022 BILITOT 0.8 12/29/2022 ALKPHOS 83 12/29/2022 AST 33 12/29/2022 ALT 19 12/29/2022 BMP: Lab Results Component Value Date NA 140 12/29/2022 K 4.0 12/29/2022 CL 108 (H) 12/29/2022 CO2 32 (H) 12/29/2022 BUN 14 12/29/2022 CREATININE 0.93 12/29/2022 CREATININE 0.89 03/18/2022 CALCIUM 9.3 12/29/2022 GLUCOSE 102 (H) 12/29/2022 PT/INR: Lab Results Component Value Date PROTIME 10.8 08/25/2020 INR 1.0 08/25/2020 PTT: No results found for: APTT, PTT[APTT} FLP: Lab Results Component Value Date TRIG 93 03/18/2022 HDL 55 03/18/2022 TSH: Lab Results Component Value Date TSH 1.092 12/29/2022 VITAMIN B12: No results found for: [id number] FERRITIN: Lab Results Component Value Date FERRITIN 96 08/25/2020 ---- No results found for: PHENYTOIN, PHENOBARB, VALPROATE, CBMZ No components found for: TOPIRANo results found for: OXCARBAZE, OXCARB @LASTAPPOINTMENTTHISPROV@ renal complete Narrative: Patient Name: NERY RODRIGUEZ : 1950 [id number] Exam Date/Time: 01/16/2023 09:28 Procedure: US RENAL COMPLETE Ordering Provider: QUINTERO JOSHUA Reason For Exam: Right renal mass RENAL ULTRASOUND: INDICATION: Right renal mass COMPARISON: MR abdomen dated 07/18/2022 Sonographic images of the bilateral kidneys and bladder were obtained. The right kidney measures 11.7 x 6.1 x 5.7 cm. Parenchymal echotexture is normal. Two cysts are seen, the largest is located superior laterally measuring 5.4 x 4.9 x 5.1 cm. The enhancing lesion seen on the prior MRI is not readily appreciated on this ultrasound. There is no evidence of hydronephrosis or renal calculus. The left kidney measures 13.5 x 6.4 x 5.2 cm. Parenchymal echotexture is normal. No focal lesions are seen. Two nonobstructing left renal calculi are noted. No mass or fluid collection is seen adjacent to the kidneys. The bladder is grossly unremarkable. Impression: At least two right renal cysts are seen, the largest measuring up to 5.4 cm in size. The enhancing lesion seen within the right kidney on the prior MRI is not readily appreciated on this study. There is no hydronephrosis. Nonobstructing left renal calculi are present.. Report Dictated on Electronically Signed By: Brijesh Francois Electronically Signed Date/Time: 01/16/2023 12:02 PM EDT @DEBRALABINFO@ FERRITIN Date Value Ref Range Status 08/25/2020 96 18 - 464 ng/mL Final No results found for: KELLIE, IMMUNOGLOBUL, OLIGOBANDS [facility] ANTIBODY Date Value Ref Range Status 08/25/2020 NOT DETECTED Not-Detected NA Final Comment: Patients with DETECTED Hepatitis C Ab results should have a new specimen submitted for supplemental testing with a Hepatitis C Quantitative RNA assay (viral load), if clinically indicated. No results found for: CRP, ANATITER, ANCA, ANCA ASSESSMENT AND PLAN: Diagnosis Plan 1. Essential tremor [facility] 2. REM sleep behavior disorder 3. WAYNE (obstructive sleep apnea) Home sleep test This is the primary cause for his tremor. But not the only cause. He is to start propranolol 20 mg BID. He has a STOP BANG score of 7 and has events during REM sleep despite the high dose of gabapentin. He has social anxiety and cannot tolerate an in lab test, so home sleep apnea test. He has findings c/w Parkinson's but not enough to cross the threshold to make the diagnosis yet. This is contributing to, but is not yet the primary, tremor. Daily exercise was encouraged. The patient was encouraged to follow the [employer] channel on YouTube: Multi-Tasking:[email or web address] Speed / Reaction Time Time:[email or web address]://[email or web address] Freezing of Gait:[email or web address]://[email or web address] https://[email or web address] Getting to the floor and back up:[email or web address]://[email or web address]/[email or web address] Seated MultiTasking:https://[email or web address] https://[email or web address]/[email or web address] Fine Motor: https://[email or web address]u.[email or web address]/[email or web address]-hHo https://[email or web address]/[email or web address] Posture: [email or web address] I spent 30 minutes caring for this patient today, reviewing labs and records, seeing the patient, documenting in the record and arranging for studies. documented in this encounter [facility] 01-17-2023 Telephone encounter Note Request for klonopin refill. PDMP reviewed. Last filled on 09/29/23. Provided refill. [facility] 01-17-2023 Miscellaneous Notes Request for klonopin refill. PDMP reviewed. Last filled on 09/29/23. Provided refill. Pt states that he has been completely out of medication for two days. Medication name: clonazePAM (KlonoPIN) 0.5 MG tablet Medication dosage: 0.25 mg (Miligrams Monthly quantity needed: 8 How many day supply requestin days Medication route: oral (PO) Medication administration time(s): as needed (PRN) If taking medication PRN, reason for taking medication: anxiety If this is a controlled substance do you receive this or any other controlled medication from any other doctor or facility: No Ordering provider: Dr. Dupree Date of last office visit: 11/07/22 Date of next office visit: 02/06/23 Date of last refill: (see medication tab): 09/28/22 Updated/Validated preferred pharmacy: Yes Patient instructed to contact the pharmacy prior to picking up the medication: No documented in this encounter [facility] 01-17-2023 Telephone encounter Note Pt states that he has been completely out of medication for two days. Medication name: clonazePAM (KlonoPIN) 0.5 MG tablet Medication dosage: 0.25 mg (Miligrams Monthly quantity needed: 8 How many day supply requestin days Medication route: oral (PO) Medication administration time(s): as needed (PRN) If taking medication PRN, reason for taking medication: anxiety If this is a controlled substance do you receive this or any other controlled medication from any other doctor or facility: No Ordering provider: Dr. Dupree Date of last office visit: 11/07/22 Date of next office visit: 02/06/23 Date of last refill: (see medication tab): 09/28/22 Updated/Validated preferred pharmacy: Yes Patient instructed to contact the pharmacy prior to picking up the medication: No [facility] 01-11-2023 Telephone encounter Note Ordered referral [facility] Work Phone: 01-11-2023 Miscellaneous Notes Ordered referral Xray of thoracic spine shows arthritic like changes in the spine/ his back Message released to patient as written. Patient's further questions if applicable: Yes The patient would like a call back to further explain the xray results. Please advise. Were all questions from office addressed or relayed to the patient from encounter: Yes Left message to return call X-ray shows degenerative changes. If patient continues to have pain would recommend an orthopedic consult let me know if patient wants documented in this encounter [facility] 01-09-2023 Telephone encounter Note Xray of thoracic spine shows arthritic like changes in the spine/ his back [facility] 01-06-2023 Telephone encounter Note Message released to patient as written. Patient's further questions if applicable: Yes The patient would like a call back to further explain the xray results. Please advise. Were all questions from office addressed or relayed to the patient from encounter: Yes [facility] 01-06-2023 Telephone encounter Note Left message to return call [facility] 01-04-2023 Telephone encounter Note X-ray shows degenerative changes. If patient continues to have pain would recommend an orthopedic consult let me know if patient wants [facility] 01-02-2023 History of Present illness Narrative Images from the original note were not included. [facility] [address] [address] Dept: [phone] Dept Loc: [phone] Reason for Visit: Follow-up and Back Pain (Muscle spasm possibly, patient said ) Assessment and Plan 1. Chronic midline thoracic back pain states Flexeril does help so I did refill that medication x-ray was ordered rest was recommended sample of Salonpas was given to the patient Medrol Dosepak was ordered - XR thoracic spine 3 views 2. Restless legs syndrome (RLS) stable continue gabapentin 3. BPH associated with nocturia Chronic stable continue flomax. Askedcurrent treatment plan is effective, no change in therapy, orders and follow up as documented in EMR, lab results reviewed with patient, repeat labs ordered prior to next appointment, reviewed compliance with lifestyle measures, reviewed diet, exercise and weight control, reviewed medications and side effects in detail Return visit in 3 months. Subjective HPI this is a 72-year-old with history of restless leg has been on gabapentin and doing well. Also has a history of back pain. Its mostly localized to her upper back. No trauma. He was taking muscle relaxant feels like it helped but is not taking the pain completely away. No numbness or tingling. Review of Systems Constitutional: Negative. Negative for activity change, appetite change and fever. HENT: Negative. Negative for congestion. Eyes: Negative. Negative for discharge. Respiratory: Negative. Negative for chest tightness. Cardiovascular: Negative. Gastrointestinal: Negative. Endocrine: Negative. Negative for cold intolerance. Genitourinary: Negative for difficulty urinating. Musculoskeletal: Positive for back pain. Neurological: Negative. Negative for dizziness, facial asymmetry and headaches. Hematological: Negative. Allergies Allergen Reactions Other Seasonal Outpatient Medications Prior to Visit Medication Sig Dispense Refill clonazePAM (KlonoPIN) 0.5 MG tablet Take 0.5 tablets (0.25 mg) by mouth Daily as needed for anxiety. 8 tablet 0 fluticasone (Flonase) 50 MCG/ACT nasal spray Administer 1 spray into each nostril daily. 16 g 3 gabapentin (Neurontin) 400 MG capsule Take 5 before bedime 150 capsule 3 loratadine (Claritin) 5 mg split tablet take 1 tablet by mouth once daily PARoxetine (Paxil) 30 MG tablet Take 1 tablet (30 mg) by mouth daily. 30 tablet 2 tamsulosin (Flomax) 0.4 MG 24 hr capsule Take 1 capsule (0.4 mg) by mouth daily. 30 capsule 3 telmisartan (MIcarDIS) 20 MG tablet Take 1 tablet (20 mg) by mouth daily. 30 tablet 3 cyclobenzaprine (Flexeril) 10 MG tablet Take 1 tablet (10 mg) by mouth Nightly as needed for muscle spasms. 30 tablet 0 No facility-administered medications prior to visit. 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 Orthostatic hypotension MDD (major depressive disorder) Dyslipidemia Ascending aortic aneurysm Renal cyst, right Essential hypertension Past Medical History: Diagnosis Date Abnormal EKG Anxiety Enlarged prostate Hyperlipidemia Hypertension REM sleep behavior disorder Social History Tobacco Use Smoking status: Former Packs/day: 1.00 Types: Cigarettes Start date: 11/26/1984 Quit date: 11/28/2008 Years since quittin.1 Smokeless tobacco: Never Substance Use Topics Alcohol use: Not Currently Past Surgical History: Procedure Laterality Date CYST REMOVAL 1969 Tailbone cyst Family History Problem Relation Name Age of Onset Heart disease Father Parkinsonism Mother High Blood Pressure Mother Bipolar disorder Sister Health Maintenance Topic Date Due Medicare Annual Wellness (AWV) Never done Hepatitis A Vaccines (1 of 2 - Risk 2-dose series) Never done Zoster Vaccines (1 of 2) Never done Hepatitis B Vaccines (1 of 3 - Risk 3-dose series) Never done Colorectal Cancer Screening 08/28/2021 COVID-19 Vaccine (4 - Booster for Moderna series) 12/01/2021 Influenza Vaccine (1) 06/16/2022 Lipid Panel 03/18/2027 DTaP/Tdap/Td Vaccines (2 - Td or Tdap) 01/20/2030 Pneumococcal Vaccine: 65+ Years Completed Hepatitis C Screening Completed HIB Vaccines Aged Out IPV Vaccines Aged Out Meningococcal Vaccine Aged Out Rotavirus Vaccines Aged Out HPV Vaccines Aged Out Objective BP 100/74 Pulse 93 Ht 5' 11 (1.803 m) Wt 230 lb (104 kg) SpO2 98% BMI 32.08 kg/m Physical Exam Vitals and nursing note reviewed. Constitutional: Appearance: Normal appearance. HENT: Head: Normocephalic and atraumatic. Nose: No congestion or rhinorrhea. Mouth/Throat: Mouth: Mucous membranes are moist. Pharynx: Oropharynx is clear. No posterior oropharyngeal erythema. Eyes: Extraocular Movements: Extraocular movements intact. Conjunctiva/sclera: Conjunctivae normal. Pupils: Pupils are equal, round, and reactive to light. Cardiovascular: Pulses: Normal pulses. Heart sounds: Normal heart sounds. No murmur heard. Pulmonary: Effort: Pulmonary effort is normal. No respiratory distress. Breath sounds: Normal breath sounds. No wheezing. Abdominal: General: Abdomen is flat. Bowel sounds are normal. Palpations: Abdomen is soft. Tenderness: There is no abdominal tenderness. Musculoskeletal: General: No swelling. Cervical back: Normal range of motion. Thoracic back: Spasms, tenderness and bony tenderness present. Skin: General: Skin is warm and dry. Neurological: General: No focal deficit present. Mental Status: He is alert and oriented to person, place, and time. Mental status is at baseline. Psychiatric: Mood and Affect: Mood normal. Data Reviewed and Summarized Labs: Lab Results Component Value Date WBC 4.9 12/29/2022 HGB 13.9 12/29/2022 HCT 40.1 12/29/2022 PLT 222 12/29/2022 TSH 1.092 12/29/2022 PSA 3.958 09/16/2021 INR 1.0 08/25/2020 Lab Results Component Value Date NA 140 12/29/2022 K 4.0 12/29/2022 CL 108 (H) 12/29/2022 CO2 32 (H) 12/29/2022 BUN 14 12/29/2022 CREATININE 0.93 12/29/2022 GLUCOSE 102 (H) 12/29/2022 CALCIUM 9.3 12/29/2022 PROT 7.2 12/29/2022 BILITOT 0.8 12/29/2022 ALKPHOS 83 12/29/2022 AST 33 12/29/2022 ALT 19 12/29/2022 @GLUCOSELAB@ Lab Results Component Value Date CHOL 217 (A) 03/18/2022 CHOL 197 09/16/2021 CHOL 170 05/17/2021 Lab Results Component Value Date TRIG 93 03/18/2022 TRIG 88 09/16/2021 TRIG 79 05/17/2021 Lab Results Component Value Date HDL 55 03/18/2022 HDL 50 09/16/2021 HDL 42 05/17/2021 No results found for: LDLCALC No results found for: VLDL Lab Results Component Value Date CHOLHDLRATIO 4 03/18/2022 CHOLHDLRATIO 4 09/16/2021 CHOLHDLRATIO 4 05/17/2021 Imaging/Testing: MRI ABDOMEN W WO CONTRAST Narrative: Patient Name[id number] Res[facility] Imaging ACCESSION EXAM DATE/TIME PROCEDURE ORDERING PROVIDER [id number] 07/18/2022 12:53 EDT MRI Abdomen w/ + w/o MD LEON, CONNER Crews Contrast CPT code 79559 Reason For Exam (MRI Abdomen w/ + w/o Contrast) Other specified disorders of kidney and ureter Report MRI ABDOMEN WITHOUT AND WITH CONTRAST (WITH ATTENTION TO THE KIDNEYS): CLINICAL INDICATION: Follow-up for right renal lesion. TECHNIQUE: Transaxial T1 and T2 gradient echo, fast T2 and fast T2 fat suppression as well as coronal T1 gradient echo and fast T2 sequences were performed along with diffusion-weighted sequences through the abdomen. Dynamic contrast-enhanced T1 sequence during injection of 11 mL gadolinium along with delayed postcontrast transaxial and coronal T1 sequences were performed as well. Comparison: 11/15/2021 FINDINGS: Limitations: Motion artifact on several sequences. Liver: Normal size and contour. Multiple hepatic cysts are again demonstrated within the imaged portions of the liver. These appear fairly similar to prior study. No suspicious liver lesions identified Biliary tree: Gallbladder appears within normal limits. No biliary dilatation. Spleen: Normal Adrenals:No discrete mass or nodule Pancreas: Homogeneous enhancement without adjacent stranding. No pathologic ductal dilatation. Kidneys: Demonstrate symmetric enhancement without obstructive uropathy. Simple appearing cyst midpole right kidney measuring up to 5.4 cm. Cystic lesion with heterogeneous slightly T2 hyperintense signal and intermediate to slightly T1 hypointense signal with heterogeneous enhancement measures about 2.0 x 1.6 cm, axial sequence 1200 image 193. This is remeasured by myself on prior study at 1.9 x 1.6 cm. Additional findings: Visualized small bowel is not abnormally dilated. Mild amount of retained colonic stool. Abdominal aorta is normal in caliber. Major venous structures enhance normally. No ascites or focal fluid collection. No suspicious bulky adenopathy. Mild degenerative spondylosis in the visualized spine with slight leftward scoliotic curvature in the lumbar spine. Magnetic Resonance Imaging Report Impression: 1. 2.0 cm enhancing lesion, right kidney, overall without significant interval change from 11/15/2021. 2. Multiple liver cysts a few of which demonstrate fine internal septation. No suspicious liver lesions within the imaged portions. Report Dictated on --- Final --- Dictating Physician: MD CAAL VLADIMIR Signed Date and Time: 07/18/2022 2:01 pm Signed by: MD CAAL VLADIMIR Transcribed Date and Time: 07/18/2022 2:02 Shawanda Costa MD documented in this encounter [facility] 10-31-2022 History of Present illness Narrative Images from the original note were not included. [facility] [address] [place] [address] Dept: [phone] Dept Loc: [phone] Reason for Visit: Tremors Assessment and Plan 1. Coarse tremors - [facility] [place] - TSH - CBC auto differential - Comprehensive metabolic panel 2. Screening for colon cancer - Cologuard colon cancer screening current treatment plan is effective, no change in therapy, orders and follow up as documented in EMR, lab results reviewed with patient, repeat labs ordered prior to next appointment, reviewed compliance with lifestyle measures, reviewed diet, exercise and weight control, reviewed medications and side effects in detail Return visit in 3 months. Subjective Tremor is a 72-year-old male who states that his psychiatrist wanted him to have a referral from his primary care for tremors. Patient states that his tremors have gotten progressively worse. He states quotation jorge it has been for as long as I can remember. We were doing the virtual I can see that his face is shaking as well. I discussed with patient how long he has had that he states just recently. His tremors seem to worsen as well when he is picking up an object. He states also writing a check is becoming difficult. He has no other symptoms no headaches no blurred vision he has no problems with ambulation or weakness in his extremities. He also does have a history of depression I stated his sees psychiatry. For this. Review of Systems Constitutional: Negative. HENT: Negative. Eyes: Negative. Respiratory: Negative. Cardiovascular: Negative. Gastrointestinal: Negative. Musculoskeletal: Negative. Neurological: Positive for tremors. Allergies Allergen Reactions Other Seasonal Outpatient Medications Prior to Visit Medication Sig Dispense Refill clonazePAM (KlonoPIN) 0.5 MG tablet Take 0.5 tablets (0.25 mg) by mouth Daily as needed for anxiety. 8 tablet 0 fluticasone (Flonase) 50 MCG/ACT nasal spray Administer 1 spray into each nostril daily. 16 g 3 gabapentin (Neurontin) 400 MG capsule Take 5 before bedime 150 capsule 3 loratadine (Claritin) 5 mg split tablet take 1 tablet by mouth once daily PARoxetine (Paxil) 30 MG tablet Take 1 tablet (30 mg) by mouth in the morning. 30 tablet 2 tamsulosin (Flomax) 0.4 MG 24 hr capsule Take 1 capsule (0.4 mg) by mouth daily. 30 capsule 3 telmisartan (MIcarDIS) 20 MG tablet Take 1 tablet (20 mg) by mouth daily. 30 tablet 3 No facility-administered medications prior to visit. 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 Orthostatic hypotension Recurrent depression (HCC) Dyslipidemia Ascending aortic aneurysm Renal cyst, right Essential hypertension Past Medical History: Diagnosis Date Abnormal EKG Anxiety Enlarged prostate Hyperlipidemia Hypertension REM sleep behavior disorder Social History Tobacco Use Smoking status: Former Packs/day: 1.00 Types: Cigarettes Start date: 11/26/1984 Quit date: 11/28/2008 Years since quittin.9 Smokeless tobacco: Never Substance Use Topics Alcohol use: Not Currently Past Surgical History: Procedure Laterality Date CYST REMOVAL 1970 Tailbone cyst Family History Problem Relation Name Age of Onset Heart disease Father Parkinsonism Mother High Blood Pressure Mother Bipolar disorder Sister Health Maintenance Topic Date Due Hepatitis A Vaccines (1 of 2 - Risk 2-dose series) Never done Zoster Vaccines (1 of 2) Never done Hepatitis B Vaccines (1 of 3 - Risk 3-dose series) Never done Colorectal Cancer Screening 08/28/2021 COVID-19 Vaccine (4 - Booster for Moderna series) 12/01/2021 Influenza Vaccine (1) 06/16/2022 Lipid Panel 03/18/2027 DTaP/Tdap/Td Vaccines (2 - Td or Tdap) 01/20/2030 Pneumococcal Vaccine: 65+ Years Completed Hepatitis C Screening Completed HIB Vaccines Aged Out IPV Vaccines Aged Out Meningococcal Vaccine Aged Out Rotavirus Vaccines Aged Out HPV Vaccines Aged Out Objective There were no vitals taken for this visit. Physical Exam Data Reviewed and Summarized Labs: Lab Results Component Value Date WBC 4.3 03/18/2022 HGB 13.9 03/18/2022 TSH 1.910 08/25/2020 PSA 3.958 09/16/2021 INR 1.0 08/25/2020 Lab Results Component Value Date NA 142 03/18/2022 K 4.1 03/18/2022 CL 107 03/18/2022 CO2 30 03/18/2022 BUN 17 03/18/2022 CREATININE 0.89 03/18/2022 GLUCOSE 104 (H) 03/18/2022 CALCIUM 9.3 03/18/2022 PROT 7.1 03/18/2022 BILITOT 0.7 03/18/2022 ALKPHOS 78 03/18/2022 AST 31 03/18/2022 @GLUCOSELAB@ Lab Results Component Value Date CHOL 217 (A) 03/18/2022 CHOL 197 09/16/2021 CHOL 170 05/17/2021 Lab Results Component Value Date TRIG 93 03/18/2022 TRIG 88 09/16/2021 TRIG 79 05/17/2021 Lab Results Component Value Date HDL 55 03/18/2022 HDL 50 09/16/2021 HDL 42 05/17/2021 No results found for: LDLCALC No results found for: VLDL Lab Results Component Value Date CHOLHDLRATIO 4 03/18/2022 CHOLHDLRATIO 4 09/16/2021 CHOLHDLRATIO 4 05/17/2021 Imaging/Testing: MRI ABDOMEN W WO CONTRAST Narrative: Patient Name: NERY RODRIGUEZ Jr Magnetic Resonance Imaging ACCESSION EXAM DATE/TIME PROCEDURE ORDERING PROVIDER [id number] 07/18/2022 12:53 EDT MRI Abdomen w/ + w/o MD LEON, CONNER Crews Contrast CPT code 04146 Reason For Exam (MRI Abdomen w/ + w/o Contrast) Other specified disorders of kidney and ureter Report MRI ABDOMEN WITHOUT AND WITH CONTRAST (WITH ATTENTION TO THE KIDNEYS): CLINICAL INDICATION: Follow-up for right renal lesion. TECHNIQUE: Transaxial T1 and T2 gradient echo, fast T2 and fast T2 fat suppression as well as coronal T1 gradient echo and fast T2 sequences were performed along with diffusion-weighted sequences through the abdomen. Dynamic contrast-enhanced T1 sequence during injection of 11 mL gadolinium along with delayed postcontrast transaxial and coronal T1 sequences were performed as well. Comparison: 11/15/2021 FINDINGS: Limitations: Motion artifact on several sequences. Liver: Normal size and contour. Multiple hepatic cysts are again demonstrated within the imaged portions of the liver. These appear fairly similar to prior study. No suspicious liver lesions identified Biliary tree: Gallbladder appears within normal limits. No biliary dilatation. Spleen: Normal Adrenals:No discrete mass or nodule Pancreas: Homogeneous enhancement without adjacent stranding. No pathologic ductal dilatation. Kidneys: Demonstrate symmetric enhancement without obstructive uropathy. Simple appearing cyst midpole right kidney measuring up to 5.4 cm. Cystic lesion with heterogeneous slightly T2 hyperintense signal and intermediate to slightly T1 hypointense signal with heterogeneous enhancement measures about 2.0 x 1.6 cm, axial sequence 1200 image 193. This is remeasured by myself on prior study at 1.9 x 1.6 cm. Additional findings: Visualized small bowel is not abnormally dilated. Mild amount of retained colonic stool. Abdominal aorta is normal in caliber. Major venous structures enhance normally. No ascites or focal fluid collection. No suspicious bulky adenopathy. Mild degenerative spondylosis in the visualized spine with slight leftward scoliotic curvature in the lumbar spine. Magnetic Resonance Imaging Report Impression: 1. 2.0 cm enhancing lesion, right kidney, overall without significant interval change from 11/15/2021. 2. Multiple liver cysts a few of which demonstrate fine internal septation. No suspicious liver lesions within the imaged portions. Report Dictated on --- Final --- Dictating Physician: MD CAAL VLADIMIR Signed Date and Time: 07/18/2022 2:01 pm Signed by: MD CAAL VLADIMIR Transcribed Date and Time: 07/18/2022 2:02 Shawanda Costa MD documented in this encounter [facility] 10-19-2022 History of Present illness Narrative [facility] Cardiology Note Visit type: Established : 1950 Chief Complaint: Chief Complaint Patient presents with Follow-up Establish Care History of Present Illness: Nery Rodriguez is a 72 y.o. male with history of HTN, RBBB/LAFB, anxiety who is here for followup. Previous patient of Dr Sandoval. last saw Lydia trejo . Doing fine. Denies chest pain, no acute sob, no orthopnea or pnd. No syncope or presyncope. No palpitations. Past Medical History: Past Medical History: Diagnosis Date Abnormal EKG Anxiety Enlarged prostate Hyperlipidemia Hypertension REM sleep behavior disorder Past Surgical History Past Surgical History: Procedure Laterality Date CYST REMOVAL 1969 Tailbone cyst Family History Family History Problem Relation Name Age of Onset Heart disease Father Parkinsonism Mother High Blood Pressure Mother Bipolar disorder Sister Social History Social History Tobacco Use Smoking status: Former Packs/day: 1.00 Types: Cigarettes Start date: 11/26/1984 Quit date: 11/28/2008 Years since quittin.8 Smokeless tobacco: Never Vaping Use Vaping Use: Never used Substance Use Topics Alcohol use: Not Currently Drug use: Never Allergies: Allergies Allergen Reactions Other Seasonal Medications: Current Outpatient Medications: clonazePAM (KlonoPIN) 0.5 MG tablet, Take 0.5 tablets (0.25 mg) by mouth Daily as needed for anxiety., Disp: 8 tablet, Rfl: 0 fluticasone (Flonase) 50 MCG/ACT nasal spray, Administer 1 spray into each nostril daily., Disp: 16 g, Rfl: 3 gabapentin (Neurontin) 400 MG capsule, Take 5 before bedime, Disp: 150 capsule, Rfl: 3 loratadine (Claritin) 5 mg split tablet, take 1 tablet by mouth once daily, Disp: , Rfl: PARoxetine (Paxil) 30 MG tablet, Take 1 tablet (30 mg) by mouth in the morning., Disp: 30 tablet, Rfl: 2 tamsulosin (Flomax) 0.4 MG 24 hr capsule, Take 1 capsule (0.4 mg) by mouth daily., Disp: 30 capsule, Rfl: 3 telmisartan (MIcarDIS) 20 MG tablet, Take 1 tablet (20 mg) by mouth daily., Disp: 30 tablet, Rfl: 3 Review of Systems: Review of Systems Constitutional: Negative for activity change, chills, diaphoresis, fatigue and fever. HENT: Negative for nosebleeds and trouble swallowing. Eyes: Negative for discharge and visual disturbance. Respiratory: Negative for apnea, cough, chest tightness, shortness of breath (Sometimes with going up stairs; resolves quickly) and wheezing. Cardiovascular: Negative for chest pain, palpitations and leg swelling. Gastrointestinal: Negative for abdominal distention, abdominal pain, blood in stool, diarrhea, nausea and vomiting. Endocrine: Negative for cold intolerance and heat intolerance. Genitourinary: Negative for hematuria. Musculoskeletal: Negative for gait problem and myalgias. Skin: Negative for color change and rash. Neurological: Negative for dizziness, seizures, syncope, facial asymmetry, speech difficulty, weakness, light-headedness, numbness and headaches. Hematological: Does not bruise/bleed easily. Psychiatric/Behavioral: Negative for dysphoric mood. Physical Examination: Vitals: Vitals: 10/19/22 0933 BP: 126/84 BP Location: Right arm Patient Position: Sitting BP Cuff Size: Adult Pulse: 84 Resp: 15 Weight: 236 lb (107 kg) Height: 5' 11 (1.803 m) Body mass index is 32.92 kg/m . Physical Exam Constitutional: Appearance: Normal appearance. HENT: Head: Normocephalic. Mouth/Throat: Pharynx: No oropharyngeal exudate. Eyes: General: No scleral icterus. Right eye: No discharge. Left eye: No discharge. Cardiovascular: Rate and Rhythm: Normal rate and regular rhythm. Heart sounds: No murmur heard. No gallop. Pulmonary: Effort: No respiratory distress. Abdominal: General: There is no distension. Tenderness: There is no abdominal tenderness. Musculoskeletal: General: Normal range of motion. Cervical back: Normal range of motion. Skin: General: Skin is warm and dry. Neurological: Mental Status: He is alert and oriented to person, place, and time. Laboratory Tests: Lab Results Component Value Date WBC 4.3 03/18/2022 HGB 13.9 03/18/2022 MCV 92.5 03/18/2022 Lab Results Component Value Date GLUCOSE 104 (H) 03/18/2022 CALCIUM 9.3 03/18/2022 NA 142 03/18/2022 K 4.1 03/18/2022 CO2 30 03/18/2022 CL 107 03/18/2022 BUN 17 03/18/2022 CREATININE 0.89 03/18/2022 @LASTCMP@ Lab Results Component Value Date CHOL 217 (A) 03/18/2022 CHOL 197 09/16/2021 CHOL 170 05/17/2021 Lab Results Component Value Date TRIG 93 03/18/2022 TRIG 88 09/16/2021 TRIG 79 05/17/2021 Lab Results Component Value Date HDL 55 03/18/2022 HDL 50 09/16/2021 HDL 42 05/17/2021 No results found for: LDLCALC No results found for: BNP Cardiac Tests: EC06/2022 first degree av block, RBBB LAFB. Last Echo: 10/19/21: SUMMARY: 1. Left ventricle: Systolic function is normal. The estimated ejection fraction is 65%. 2. Right ventricle: The cavity size is mildly dilated. Systolic function is normal. 3. Left atrium: The atrium is mildly dilated. 4. Right atrium: The atrium is mildly dilated. 5. Aortic valve: There is mild, 1+ regurgitation. 6. Aorta: The aorta is mildly dilated. Assessment and Plan: 1. First degree AV block (WV 256 msec), RBBB (right bundle branch block with left anterior fascicular block) Asymptomatic, avoid AV wilson blocking agents. Yearly ekgs 2. Essential hypertension On telmisartan. Care per pcp. 3. Orthostatic hypotension Asymptomatic after stopping hydrochlorothiazide. 4. Mildly dilated aorta By echo Ascending aorta is 4.0 cm , indexed is 1.8 cm/m2 (which is within normal range). Can repeat an echo in a years time RTC in 1 year or earlier if any symptoms documented in this encounter [facility] Evaluation note Diagnosis BPH without urinary obstruction Hypertrophy of prostate without urinary obstruction and other lower urinary tract symptoms (LUTS) Mixed hyperlipidemia documented in this encounter [facility] Work Phone: Evaluation note* Diagnosis Dizziness and giddiness Syncope and collapse Chronic cough Cough Dizziness Dizziness and giddiness Pre-syncope Syncope and collapse documented in this encounter [facility] Work Phone: Evaluation note* Diagnosis Tobacco use Tobacco use disorder Tobacco abuse Tobacco use disorder Other specified diseases of liver documented in this encounter [facility] Work Phone: Evaluation note* Diagnosis Abnormal EKG Nonspecific abnormal electrocardiogram (ECG) (EKG) Other specified diseases of liver documented in this encounter [facility] Work Phone: Evaluation note* Diagnosis Essential hypertension Unspecified essential hypertension BPH without obstruction/lower urinary tract symptoms Hypertrophy of prostate without urinary obstruction and other lower urinary tract symptoms (LUTS) RBBB (right bundle branch block with left anterior fascicular block) Right bundle branch block and left anterior fascicular block Pulmonary nodule Solitary pulmonary nodule Renal mass Unspecified disorder of kidney and ureter RLS (restless legs syndrome) Restless legs syndrome (RLS) Recurrent depression (HCC) Major depressive disorder, recurrent episode, unspecified Solitary pulmonary nodule Personal history of nicotine dependence Personal history of tobacco use, presenting hazards to health documented in this encounter [facility] Work Phone: Evaluation note* Diagnosis Solitary pulmonary nodule Personal history of nicotine dependence Personal history of tobacco use, presenting hazards to health Pulmonary nodule Solitary pulmonary nodule History of nicotine dependence Personal history of tobacco use, presenting hazards to health documented in this encounter [facility] Work Phone: Evaluation note* Diagnosis Right renal mass Unspecified disorder of kidney and ureter Renal cyst, right Unspecified congenital cystic kidney disease documented in this encounter [facility] Work Phone: Evaluation note* Diagnosis Chronic midline thoracic back pain- Primary Restless legs syndrome (RLS) BPH associated with nocturia [facility] Diagnosis Chronic midline thoracic back pain [facility]* Diagnosis DDD (degenerative disc disease), thoracic- Primary Degeneration of thoracic or thoracolumbar intervertebral disc [facility]* Diagnosis Other specified disorders of kidney and ureter [facility]* Diagnosis Generalized anxiety disorder with panic attacks [facility]* Diagnosis Essential tremor- Primary REM sleep behavior disorder WAYNE (obstructive sleep apnea) Obstructive sleep apnea (adult) (pediatric) [facility]* Diagnosis Gram-negative sepsis, unspecified (HCC)- Primary Gram-negative sepsis, unspecified (HCC) Dizziness Dizziness and giddiness Lightheadedness Dizziness and giddiness Acute cystitis without hematuria Elevated troponin Other abnormal blood chemistry Hyponatremia Hyposmolality and/or hyponatremia Essential hypertension Unspecified essential hypertension RBBB (right bundle branch block with left anterior fascicular block) Right bundle branch block and left anterior fascicular block Abnormal EKG Nonspecific abnormal electrocardiogram (ECG) (EKG) Lightheadedness Dizziness and giddiness Acute cystitis without hematuria Elevated troponin Other abnormal blood chemistry Hyponatremia Hyposmolality and/or hyponatremia documented in this encounter [facility]* Diagnosis Troponin level elevated Other abnormal blood chemistry Calculus of kidney [facility]* Diagnosis Calculus of ureter- Primary documented [facility]* Diagnosis Tremor- Primary Abnormal involuntary movements documented in this encounter [facility] note* Diagnosis Renal calculus- Primary Calculus of kidney [facility] [place] [facility] Diagnosis Renal calculus Calculus of kidney documented in this encounter [facility] note* Diagnosis Personal history of nicotine dependence documented in this encounter [facility] note* Diagnosis Mouth sores- Primary Other and unspecified diseases of the oral soft tissues Sore in nose documented in this encounter [facility] note* Diagnosis Tremor- Primary Abnormal involuntary movements REM sleep behavior disorder documented in this encounter [facility] note* Diagnosis Chronic anemia- Primary Unspecified anemia Screening, lipid Controlled REM sleep behavior disorder documented in this encounter [facility] note* Diagnosis Chronic thoracic back pain, unspecified back pain laterality documented in this encounter [facility] note* Diagnosis Renal mass Unspecified disorder of kidney and ureter Renal cyst Unspecified congenital cystic kidney disease documented in this encounter [facility] note* Diagnosis Renal mass- Primary Unspecified disorder of kidney and ureter Renal cyst Unspecified congenital cystic kidney disease Renal calculus Calculus of kidney documented in this encounter [facility] note* Diagnosis Chronic thoracic back pain, unspecified back pain laterality documented in this encounter [facility] note* Diagnosis Chronic thoracic back pain, unspecified back pain laterality- Primary documented in this encounter [facility] note* Diagnosis Chronic thoracic back pain, unspecified back pain laterality- Primary [facility] [place] [facility] Diagnosis Calculus of kidney- Primary [facility] [place] [facility]* Diagnosis Chronic thoracic back pain, unspecified back pain laterality- Primary [facility] [place] [facility] Diagnosis Chronic thoracic back pain, unspecified back pain laterality- Primary [facility] [place] [facility]* Diagnosis Routine general medical examination at health care facility- Primary Routine general medical examination at a health care facility documented in this encounter [facility] note* Diagnosis Chronic thoracic back pain, unspecified back pain laterality- Primary documented in this encounter [facility] note* Diagnosis Parkinson's disease without dyskinesia or fluctuating manifestations- Primary REM sleep behavior disorder [facility] [place] [facility]* Diagnosis Skin lesions- Primary [facility]* Diagnosis Chronic anemia- Primary Unspecified anemia Screening, lipid Controlled REM sleep behavior disorder [facility]* Diagnosis Parkinson's disease without dyskinesia or fluctuating manifestations- Primary REM sleep behavior disorder [facility]* Diagnosis Arthralgia of hand, unspecified laterality- Primary Pulmonary emphysema, unspecified emphysema type (HCC) Aneurysm of ascending aorta without rupture (HCC) Anxiety Anxiety state, unspecified [facility] Diagnosis Arthralgia of hand, unspecified laterality- Primary Pulmonary emphysema, unspecified emphysema type (HCC) Aneurysm of ascending aorta without rupture (HCC) Anxiety Anxiety state, unspecified [facility]* Diagnosis Renal mass Unspecified disorder of kidney and ureter [facility]* Diagnosis Renal mass- Primary Unspecified disorder of kidney and ureter Renal cyst Unspecified congenital cystic kidney disease [facility]* Diagnosis Liver lesion- Primary Other specified disorders of liver Renal cyst, right Unspecified congenital cystic kidney disease [facility]* Diagnosis Renal mass- Primary Unspecified disorder of kidney and ureter Renal cyst Unspecified congenital cystic kidney disease [facility]* Diagnosis Renal mass, right- Primary Unspecified disorder of kidney and ureter Renal mass, right Unspecified disorder of kidney and ureter Other specified disorders of kidney and ureter Post-op pain Other acute postoperative pain Right renal mass Unspecified disorder of kidney and ureter documented [facility]* Diagnosis Postoperative hemorrhage of subcutaneous tissue following non-dermatologic procedure- Primary documented [facility]* Diagnosis Abdominal wall hematoma, initial encounter- Primary S/p nephrectomy Acquired absence of kidney documented [facility]* Diagnosis Generalized anxiety disorder with panic attacks Recurrent major depressive disorder, in full remission (HCC) documented [facility]* Diagnosis Renal cancer, right (HCC)- Primary Scrotal swelling Edema of male genital organs Hematoma Contusion of unspecified site documented [facility]* Diagnosis Chronic anemia- Primary Unspecified anemia Renal cancer, right (HCC) REM sleep behavior disorder Essential hypertension Unspecified essential hypertension [facility]* Diagnosis REM behavioral disorder- Primary REM sleep behavior disorder Parkinson's disease without dyskinesia or fluctuating manifestations (HCC) Essential tremor documented in this encounter [facility]* Diagnosis History of nicotine dependence documented [facility]* Diagnosis Pulmonary nodule- Primary Other diseases of lung, not elsewhere classified Pulmonary emphysema, unspecified emphysema type (HCC) History of nicotine dependence History of primary transitional cell carcinoma of right kidney documented [facility]* Diagnosis Generalized anxiety disorder with panic attacks Recurrent major depressive disorder, in full remission (HCC) documented [facility]* Diagnosis Renal cancer, right (HCC) Hematoma Contusion of unspecified site [facility]* Diagnosis Renal cancer, right (HCC)- Primary Liver cyst Other specified disorders of liver Benign prostatic hyperplasia with urinary frequency Stage 3a chronic kidney disease (HCC) documented [facility]* Diagnosis Chronic anemia- Primary Unspecified anemia Renal cancer, right (HCC) REM sleep behavior disorder Essential hypertension Unspecified essential hypertension documented [facility]* Diagnosis Rectal bleeding- Primary Hemorrhage of rectum and anus Chronic anemia Unspecified anemia Renal cancer, right (HCC) Essential hypertension Unspecified essential hypertension Liver lesion Other specified disorders of liver Recurrent major depressive disorder, in full remission (HCC) documented [facility]* Diagnosis Aneurysm of ascending aorta without rupture (HCC)- Primary RBBB (right bundle branch block with left anterior fascicular block) Right bundle branch block and left anterior fascicular block documented [facility]* Diagnosis Liver cyst Other specified disorders of liver documented in [facility]* Diagnosis RBBB (right bundle branch block with left anterior fascicular block) Right bundle branch block and left anterior fascicular block Aneurysm of ascending aorta without rupture (HCC) documented [facility]* Diagnosis Other specified disorders of kidney and ureter- Primary documented in [facility]* Diagnosis RBBB (right bundle branch block with left anterior fascicular block)- Primary Right bundle branch block and left anterior fascicular block Essential hypertension Unspecified essential hypertension documented [facility]* Diagnosis Personal history of nicotine dependence- Primary [facility]* Diagnosis Coarse tremors- Primary Abnormal involuntary movements Screening for colon cancer Special screening for malignant neoplasms, colon [facility] [place] [facility]* Diagnosis Generalized anxiety disorder with panic attacks Recurrent major depressive disorder, in full remission (HCC) [facility] Diagnosis Essential tremor- Primary REM behavioral disorder REM sleep behavior disorder Parkinson's disease without dyskinesia or fluctuating manifestations (HCC) [facility] [place] [facility]* Diagnosis Loss of appetite- Primary Anorexia Rectal bleeding Hemorrhage of rectum and anus Irregular bowel habits Hemorrhoids, unspecified hemorrhoid type Chronic anemia Unspecified anemia documented [facility] [place] [facility]* Diagnosis Generalized anxiety disorder with panic attacks Recurrent major depressive disorder, in full remission (HCC) documented [facility] [place] [facility]* Diagnosis Chronic anemia- Primary Unspecified anemia Essential hypertension Unspecified essential hypertension Recurrent major depressive disorder, in full remission (HCC) Screening for diabetes mellitus Rheumatoid arthritis without rheumatoid factor, multiple sites (HCC) Stage 3a chronic kidney disease (HCC) Renal cancer, right (HCC) Pulmonary emphysema, unspecified emphysema type (HCC) Screening PSA (prostate specific antigen) Special screening for malignant neoplasm of prostate Hemorrhage of anus and rectum Hemorrhage of rectum and anus Unspecified hemorrhoids Anemia, unspecified documented in this encounter [facility] note* Diagnosis Hemorrhage of anus and rectum Hemorrhage of rectum and anus Unspecified hemorrhoids Anemia, unspecified [facility] Attachments The following attachments cannot be sent through Care Everywhere. * Ureteral Stent (Romanian) * Ureteral Stent Discharge Instructions (Romanian) documented in this [facility] Discharge instructions* Attachments The following attachments cannot be sent through Care Everywhere. * Nephrectomy (Romanian) documented in this [facility] Discharge instructions* Attachments The following attachments cannot be sent through Care Everywhere. * Surgical Wound Discharge Instructions (Romanian) documented in this [facility] Discharge instructions* Attachments The following attachments cannot be sent through Care Everywhere. * Moderate Sedation in Adults Discharge Instructions (Romanian) * Upper GI Endoscopy Discharge Instructions (Romanian) * Colonoscopy Discharge Instructions (Romanian) documented in this [facility] for referral (narrative)* Consultation (Routine) - Authorized Specialty Diagnoses / Procedures Referred By Edin t Referred To Contact Orthopedic Surgery Diagnoses DDD (degenerative disc disease), thoracic Beebe, Yamilet M, DO [address] [place] [address] Jorge Munoz PA-C [address] [facility] [address] [place] [address] Referral ID Status Reason Start Date Expiration Date Visits Requested Visits Authorized [id number] Authorized Specialty Services Required 01/11/2023 01/11/2024 1 1 [facility] for referral (narrative)* Consultation (Urgent) - Pending Review Specialty Diagnoses / Procedures Referred By Contac t Referred To Contact Physical Therapy Diagnoses Chronic thoracic back pain, unspecified back pain laterality Procedures [place] [facility]PAT[facility] 60-74 MINUTES Milana Hussein NP 1 [facility] [address] [place] [address] [place] [address] Referral ID Status Reason Start Date Expiration Date Visits Requested Visits Authorized [id number] Pending Review Specialty Services Required 07/20/2023 07/19/2024 99 99 [facility] for referral (narrative)* Consultation (Routine) - Pending Review Specialty Diagnoses / Procedures Referred By Contac t Referred To Contact Dermatology Diagnoses Skin lesions Procedures [place] [facility] 60 MINUTES Shawanda Costa MD [address] [place] [address] [address] [place] [address] Angelia Gomes MD [address] [place] [address] [facility] [address] [place] [address] Referral ID Status Reason Start Date Expiration Date Visits Requested Visits Authorized [id number] Pending Review Specialty Services Required 10/24/2023 10/23/2024 1 [facility] Consultation (Routine) - Pending Review Specialty Diagnoses / Procedures Referred By Contac t Referred To Contact Gastroenterology Diagnoses Liver lesion Procedures [place] [facility] 60 MINUTES Shawanda Costa MD [address] [facility] [address] [place] [address] [facility] [address] [place] [address] Referral ID Status Reason Start Date Expiration Date Visits Requested Visits Authorized [id number] Pending Review Specialty Services Required 02/07/2024 02/06/2025 1 1 [facility] [facility] ([facility])* Consultation (Routine) - Pending Review Specialty Diagnoses / Procedures Referred By Contac t Referred To Contact Neurology Diagnoses Coarse tremors Procedures [place] OFFICE/OUTPATIENT [facility] 60-74 MINUTES Shawanda Costa MD [address] [place] [address] [facility] Neuro [address] [facility] [address] [place] [address] Referral ID Status Reason Start Date Expiration Date Visits Requested Visits Authorized [id number] Pending Review Specialty Services Required 10/31/2022 04/29/2023 1 1 [facility] N[facility]* Imaging (Routine) - Closed Specialty Diagnoses / Procedures Referred By Contac t Referred To Contact Cardiology Diagnoses RBBB (right bundle branch block with left anterior fascicular block) Aneurysm of ascending aorta without rupture (HCC) Procedures Transthoracic echocardiogram (TTE) complete with contrast, bubble, strain, and 3D PRN [place] ECHO TTHRC R-T 2D W/WOM-MODE COMPL SPEC&COLR D [place] TTE W OR WO FOL WCON,Angelica Prado MD [address] [place] [address] [address] [place] [address] Phone: tel: fax: Referral ID Status Reason Start Date Expiration Date Visits Re quested Visits Authorized [id number] Closed 09/02/2024 09/02/2025 1 1 [facility] Auth/Cert (Routine) Specialty Diagnoses / Procedures Referred By Contac t Referred To Contact Diagnoses Hemorrhage of anus and rectum Unspecified hemorrhoids Anemia, unspecified Procedures [place] COLONOSCOPY FLX DX W/COLLJ SPEC WHEN PFRMD [place] ESOPHAGOGASTRODUODENOSCOPY TRANSORAL DIAGNOSTIC COLONOSCOPY ESOPHAGOGASTRODUODENOSCOPY, DIAGNOSTIC Mark Yeh MD [address] [facility] [address] [place] [address] Phone: tel: fax: Referral ID Status Reason Start Date Expiration Date Visits Re quested Visits Authorized [id number] 02/17/2025 1 1 [facility] Reason for Referral Status Reason Specialty Diagnoses / Procedures Referre d By Contact Referred To Contact Open Radiology Diagnoses Screening for AAA (aortic abdominal aneurysm) Procedures VL AAA SCREENING Shawanda Costa MD [address] [place] [address] Status Reason Specialty Diagnoses / Procedures Referre d By Contact Referred To Contact Closed Radiology Diagnoses Hepatomegaly Liver cyst Fatty liver Procedures CT Abdomen Pelvis W IV and Oral Contrast Fab Porter PA-C [address] [facility] [address] [place] [address] Status Reason Specialty Diagnoses / Procedures Referre d By Contact Referred To Contact Open Radiology Diagnoses Liver cyst Procedures US Abdomen Complete Shawanda Costa MD [address] [place] [address] Status Reason Specialty Diagnoses / Procedures Referred By Contact Referred To Contact Authorized Vascular Lab Diagnoses Dizziness Pre-syncope Procedures VL Carotid Bilateral Shawanda Costa MD [address] [place] [address] Specialty Diagnoses / Procedures Referred By Contac t Referred To Contact Radiology Diagnoses Tobacco abuse Procedures CT CHEST LOW DOSE (LDCT) Shawanda Costa MD [address] [place] [address] Referral ID Status Reason Start Date Expiration Date Visits Re quested Visits Authorized [id number] Open 09/21/2021 09/21/2022 1 1 Specialty Diagnoses / Procedures Referred By Contac t Referred To Contact Cardiology Diagnoses Abnormal EKG Procedures Echocardiogram complete Chris Sandoval MD [address] [place] [address] Referral ID Status Reason Start Date Expiration Date Visits Re quested Visits Authorized [id number] Closed 09/27/2021 09/27/2022 1 1 Specialty Diagnoses / Procedures Referred By Contac t Referred To Contact Radiology Diagnoses Pulmonary nodule History of nicotine dependence Procedures CT Chest WO Contrast Antonietta Mcgill, FINISHING MACHINE TENDER - MEMORIAL COUNSELOR [address] [place] [address] Referral ID Status Reason Start Date Expiration Date Visits Re quested Visits Authorized [id number] Open 04/19/2022 04/19/2023 1 1 Specialty Diagnoses / Procedures Referred By Contac t Referred To Contact Radiology Diagnoses Right renal mass Renal cyst, right Procedures MRI ABDOMEN W WO CONTRAST Conner Quintero MD [address] [place] [address] Referral ID Status Reason Start Date Expiration Date Visits Re quested Visits Authorized [id number] Open 07/28/2022 07/28/2023 1 1 Specialty Diagnoses / Procedures Referred By Contac t Referred To Contact Sleep Medicine Diagnoses WAYNE (obstructive sleep apnea) Procedures Home sleep test Breanna Tolliver MD [address] [place] [address] Referral ID Status Reason Start Date Expiration Date V isits Requested Visits Authorized [id number] Pending Review 01/24/2023 07/23/2023 1 1 Specialty Diagnoses / Procedures Referred By Contac t Referred To Contact Radiology Diagnoses Personal history of nicotine dependence Procedures CT lung screening low dose [facility] [address] [place] [address] Referral ID Status Reason Start Date Expiration Date Visits Re quested Visits Authorized [id number] Closed 07/31/2022 07/16/2023 1 1 Specialty Diagnoses / Procedures Referred By Contac t Referred To Contact Radiology Diagnoses Renal mass Renal cyst Procedures MR abdomen w and wo contrast Conner Quintero MD [address] [place] [address] Referral ID Status Reason Start Date Expiration Date Visits Re quested Visits Authorized [id number] Closed 01/25/2023 2023 1 1 Specialty Diagnoses / Procedures Referred By Contac t Referred To Contact Radiology Diagnoses Renal cancer, right (HCC) Hematoma Procedures CT abdomen pelvis wo IV contrast Conner Quintero MD [address] [place] [address] Referral ID Status Reason Start Date Expiration Date V isits Requested Visits Authorized [id number] Pending Review 04/24/2024 04/24/2025 1 1 Specialty Diagnoses / Procedures Referred By Contac t Referred To Contact Radiology Diagnoses History of nicotine dependence Procedures CT lung screening low dose Antonietta Mcgill, FINISHING MACHINE TENDER - MEMORIAL COUNSELOR [address] [place] [address] Referral ID Status Reason Start Date Expiration Date Visits Re quested Visits Authorized [id number] Closed 05/30/2023 05/30/2024 1 1 Referral ID Status Reason Start Date Expiration Date V isits Requested Visits Authorized [id number] Pending Review 07/08/2024 07/08/2025 1 1 Referral ID Status Reason Start Date Expiration Date Visits Re quested Visits Authorized [id number] Closed 04/24/2024 04/24/2025 1 1 Referral ID Status Reason Start Date Expiration Date V isits Requested Visits Authorized [id number] Pending Review 07/31/2022 01/27/2023 1 1 Assessments Diagnosis Encounter for screening for cardiovascular disorders Screening for other and unspecified cardiovascular conditions Screening for AAA (aortic abdominal aneurysm) Screening for other and unspecified cardiovascular conditions Diagnosis Recurrent depression (HCC) Major depressive disorder, recurrent episode, unspecified Social anxiety disorder Social phobia BPH without obstruction/lower urinary tract symptoms Hypertrophy of prostate without urinary obstruction and other lower urinary tract symptoms (LUTS) Essential hypertension Unspecified essential hypertension Other sleep disorders Diagnosis Liver cyst Other specified disorders of liver Hepatomegaly Fatty liver Other chronic nonalcoholic liver disease Diagnosis Liver cyst Other specified disorders of liver Diagnosis Essential hypertension Unspecified essential hypertension Diagnosis Hepatomegaly Fatty liver Other chronic nonalcoholic liver disease Need for hepatitis B screening test Advance Directives No Advanced Directives Records FoundDocuments on File Type Date Recorded 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 Expl anation ACP-Advance Directive ACP-Power of Helper Marble Finisher Documents on File Type Date Recorded 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 Expl anation ACP-Advance Directive ACP-Power of Helper Marble Finisher Latest Code Status on File Code Status Date Activated Date Inactivated Comments Full Code 02/11/2023 6:29 PM Latest Code Status on File Code Status Date Activated Date Inactivated Comments Full Code 02/11/2023 6:29 PM 02/14/2023 3:58 PM Latest Code Status on File Code Status Date Activated Date Inactivated Comments Full Code 02/11/2023 6:29 PM 02/14/2023 3:58 PM Documents on File Type Date Recorded 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 Expl anation Advance Directives and Livin g Will 04/01/2024 2:09 PM Power of Helper Marble Finisher 04/01/2024 2:08 PM Date Activated Date Inactivated Comments 04/08/2024 7:05 PM 04/09/2024 8:33 PM Date Activated Date Inactivated Comments 02/11/2023 6:29 PM 02/14/2023 3:58 PM Documents on File Type Date Recorded 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 Expl anation Advance Directives and Livin g Will 04/01/2024 2:09 PM Power of Helper Marble Finisher 04/01/2024 2:08 PM Date Activated Date Inactivated Comments 04/08/2024 7:05 PM 04/09/2024 8:33 PM Date Activated Date Inactivated Comments 02/11/2023 6:29 PM 02/14/2023 3:58 PM Summary Purpose Family History No Family History Records FoundNo Family History Records FoundNo Family History Records Found Additional Source Comments Care Teams (unrecognized sec tion and content) Informatics Application Analyst Relationship Specialty Start Date End Date Shawanda Costa MD [address] [place] [address] PCP - General Family Medicine 11/28/19 Informatics Application Analyst Relationship Specialty Start Date End Date Shawanda Costa MD [address] [place] [address] PCP - General Family Medicine 11/28/19 Informatics Application Analyst Relationship Specialty Start Date End Date Shawanda Costa MD [address] [place] [address] PCP - General Family Medicine 11/28/19 Informatics Application Analyst Relationship Specialty Start Date End Date Shawanda Costa MD [address] [place] [address] PCP - General Family Medicine 11/28/19 Informatics Application Analyst Relationship Specialty Start Date End Date Shawanda Costa MD [address] [place] [address] PCP - General Family Medicine 11/28/19 Informatics Application Analyst Relationship Specialty Start Date End Date Shawanda Costa MD [address] [place] [address] PCP - General Family Medicine 11/28/19 Informatics Application Analyst Relationship Specialty Start Date End Date Shawanda Costa MD [address] [place] [address] PCP - General 11/28/19 Shanel Parada, RN Nurse Navigator 08/23/22 Tanmay Elliott, [address] [id number] Psychiatrist Psychiatry 08/29/22 Informatics Application Analyst Relationship Specialty Start Date End Date Shawanda Costa MD [address] [place] [address] PCP - General 11/28/19 Shanel Parada, RN Nurse Navigator 08/23/22 Tanmay Elliott DO [address] [id number] Psychiatrist Psychiatry 08/29/22 Informatics Application Analyst Relationship Specialty Start Date End Date Shawanda Costa MD [address] [place] [address] [id number] PCP - General 11/28/19 Shanel Parada, RN Nurse Navigator 08/23/22 Tanmay Elliott DO [address] [address] Psychiatrist Psychiatry 08/29/22 Informatics Application Analyst Relationship Specialty Start Date End Date Shawanda Costa MD [address] [place] [address] [phone] PCP - General 11/28/19 Shanel Parada RN Nurse Navigator 08/23/22 Tanmay Elliott DO [address] [id number] Psychiatrist Psychiatry 08/29/22 Informatics Application Analyst Relationship Specialty Start Date End Date Shawanda Costa MD [address] [place] [address] [phone] PCP - General 11/28/19 Shanel Parada RN Nurse Navigator 08/23/22 Tanmay Elliott DO Psychiatrist Psychiatry 08/29/22 Informatics Application Analyst Relationship Specialty Start Date End Date Shawanda Costa MD [address] [place] [address] 537231 PCP - General 11/28/19 Shanel Parada RN Nurse Navigator 08/23/22 Tanmay Elliott DO Psychiatrist Psychiatry 08/29/22 Informatics Application Analyst Relationship Specialty Start Date End Date Shawanda Costa MD [address] [place] [address] PCP - General 11/28/19 Shanel Parada, RN Nurse Navigator 08/23/22 Tanmay Elliott, DO Psychiatrist Psychiatry 08/29/22 Conner Quintero MD [address] [place] [address] Surgeon Urology 01/25/23 Informatics Application Analyst Relationship Specialty Start Date End Date Shawanda Costa MD [address] [place] [address] PCP - General 11/28/19 Shanel Parada RN Nurse Navigator 08/23/22 Tanmay Elliott, DO Psychiatrist Psychiatry 08/29/22 Conner Quintero MD [address] [place] [address] Surgeon Urology 01/25/23 Igor Subramanian MD [address] [place] [address] Surgeon Urology 02/12/23 Informatics Application Analyst Relationship Specialty Start Date End Date Shawanda Costa MD [address] [place] [address] PCP - General 11/28/19 Shanel Parada, RN Nurse Navigator 08/23/22 Tanmay Elliott, DO Psychiatrist Psychiatry 08/29/22 Conner Quintero MD [address] [place] [address] Surgeon Urology 01/25/23 Igor Subramanian MD [address] [place] [address] Surgeon Urology 02/12/23 Monet Menjivar, veterinary poultry inspectorVarnish Filterer Manager 02/17/23 Informatics Application Analyst Relationship Specialty Start Date End Date Shawanda Costa MD [address] [place] [address] PCP - General 11/28/19 Shanel Parada, RN Nurse Navigator 08/23/22 Tanmay Elliott DO Psychiatrist Psychiatry 08/29/22 Conner Quintero MD [address] [place] [address] Surgeon Urology 01/25/23 Igor Subramanian MD [address] [place] [address] Surgeon Urology 02/12/23 Informatics Application Analyst Relationship Specialty Start Date End Date Shawanda Costa MD [address] [place] [address] PCP - General 11/28/19 Shanel Parada, RN Nurse Navigator 08/23/22 Tanmay Elliott DO Psychiatrist Psychiatry 08/29/22 Conner Quintero MD [address] [place] [address] Surgeon Urology 01/25/23 Igor Subramanian MD [address] [place] [address] Surgeon Urology 02/12/23 Informatics Application Analyst Relationship Specialty Start Date End Date Shawanda Costa MD [address] [place] [address] PCP - General 11/28/19 Shanel Parada, RN Nurse Navigator 08/23/22 Tanmay Elliott DO Psychiatrist Psychiatry 08/29/22 Conner Quintero MD [address] [place] [address] Surgeon Urology 01/25/23 Igor Subramanian MD [address] [place] [address] Surgeon Urology 02/12/23 Informatics Application Analyst Relationship Specialty Start Date End Date Shawanda Costa MD [address] [place] [address] PCP - General 11/28/19 Shanel Parada, RN Nurse Navigator 08/23/22 Tanmay Elliott DO Psychiatrist Psychiatry 08/29/22 Conner Quintero MD [address] [place] [address] Surgeon Urology 01/25/23 Igor Subramanian MD [address] [place] [address] Surgeon Urology 02/12/23 Informatics Application Analyst Relationship Specialty Start Date End Date Shawanda Costa MD [address] [place] [address] PCP - General 11/28/19 Shanel Parada, RN Nurse Navigator 08/23/22 Tanmay Elliott DO Psychiatrist Psychiatry 08/29/22 Conner Quintero MD [address] [place] [address] Surgeon Urology 01/25/23 Igor Subramanian MD [address] [place] [address] Surgeon Urology 02/12/23 Informatics Application Analyst Relationship Specialty Start Date End Date Shawanda Costa MD [address] [place] [address] PCP - General 11/28/19 Shanel Parada, RN Nurse Navigator 08/23/22 Tanmay Elliott DO Psychiatrist Psychiatry 08/29/22 Conner Quintero MD [address] [place] [address] Surgeon Urology 01/25/23 Igor Subramanian MD [address] [place] [address] Surgeon Urology 02/12/23 Informatics Application Analyst Relationship Specialty Start Date End Date Shawanda Costa MD [address] [place] [address] PCP - General 11/28/19 Shanel Parada, RN Nurse Navigator 08/23/22 Tanmay Elliott DO Psychiatrist Psychiatry 08/29/22 Conner Quintero MD [address] [place] [address] Surgeon Urology 01/25/23 Igor Subramanian MD [address] [place] [address] Surgeon Urology 02/12/23 Informatics Application Analyst Relationship Specialty Start Date End Date Shawanda Costa MD [address] [place] [address] PCP - General 11/28/19 Shanel Parada RN Nurse Navigator 08/23/22 Tanmay Elliott DO Psychiatrist Psychiatry 08/29/22 Conner Quintero MD [address] [place] [address] Surgeon Urology 01/25/23 Igor Subramanian MD [address] [place] [address] Surgeon Urology 02/12/23 Informatics Application Analyst Relationship Specialty Start Date End Date Shawanda Costa MD [address] [place] [address] PCP - General 11/28/19 Shanel Parada, RN Nurse Navigator 08/23/22 Tanmay Elliott DO Psychiatrist Psychiatry 08/29/22 Conner Quintero MD [address] [place] [address] Surgeon Urology 01/25/23 Igor Subramanian MD [address] [place] [address] Surgeon Urology 02/12/23 Informatics Application Analyst Relationship Specialty Start Date End Date Shawanda Costa MD [address] [place] [address] PCP - General 11/28/19 Shanel Parada, RN Nurse Navigator 08/23/22 Tanmay Elliott DO Psychiatrist Psychiatry 08/29/22 Conner Quintero MD [address] [place] [address] Surgeon Urology 01/25/23 Igor Subramanian MD [address] [place] [address] Surgeon Urology 02/12/23 Informatics Application Analyst Relationship Specialty Start Date End Date Shawanda Costa MD [address] [place] [address] PCP - General 11/28/19 Shanel Parada, RN Nurse Navigator 08/23/22 Tanmay Elliott DO Psychiatrist Psychiatry 08/29/22 Conner Quintero MD [address] [place] [address] Surgeon Urology 01/25/23 Igor Subramanian MD [address] [place] [address] Surgeon Urology 02/12/23 Monet Menjivar, veterinary poultry inspectorVarnish Filterer Manager 02/17/2302/17/23 Informatics Application Analyst Relationship Specialty Start Date End Date Shawanda Costa MD [address] [place] [address] PCP - General 11/28/19 Shanel Parada RN Nurse Navigator 08/23/22 Tanmay Elliott DO Psychiatrist Psychiatry 08/29/22 Conner Quintero MD [address] [place] [address] Surgeon Urology 01/25/23 Igor Subramanian MD [address] [place] [address] Surgeon Urology 02/12/23 Informatics Application Analyst Relationship Specialty Start Date End Date Shawanda Costa MD [address] [place] [address] PCP - General 11/28/19 Shanel Parada, RN Nurse Navigator 08/23/22 Tanmay Elliott DO Psychiatrist Psychiatry 08/29/22 Conner Quintero MD [address] [place] [address] Surgeon Urology 01/25/23 Igor Subramanian MD [address] [place] [address] Surgeon Urology 02/12/23 Monet Menjivar, veterinary poultry inspectorVarnish Filterer Manager 02/17/2302/17/23 Informatics Application Analyst Relationship Specialty Start Date End Date Shawanda Costa MD [address] [place] [address] PCP - General 11/28/19 Shanel Parada, RN Nurse Navigator 08/23/22 Tanmay Elliott DO Psychiatrist Psychiatry 08/29/22 Conner Quintero MD [address] [place] [address]. [address] [place] [address] Surgeon Urology 01/25/23 Igor Subramanian MD [address] [place] [address] [address] [place] [address] Surgeon Urology 02/12/23 Informatics Application Analyst Relationship Specialty Start Date End Date Shawanda Costa MD [address] [place] [address] PCP - General 11/28/19 Shanel Parada, RN Nurse Navigator 08/23/22 Tanmay Elliott DO Psychiatrist Psychiatry 08/29/22 Conner Quintero MD [address] [place] [address] [address] [place] [address] Surgeon Urology 01/25/23 Igor Subramanian MD [address] [place] [address] Surgeon Urology 02/12/23 Informatics Application Analyst Relationship Specialty Start Date End Date Shawanda Costa MD [address] [place] [address] PCP - General 11/28/19 Shanel Parada, RN Nurse Navigator 08/23/22 Tanmay Elliott DO Psychiatrist Psychiatry 08/29/22 Conner Quintero MD [address] [place] [address] Surgeon Urology 01/25/23 Igor Subramanian MD [address] [place] [address] Surgeon Urology 02/12/23 Informatics Application Analyst Relationship Specialty Start Date End Date Shawanda Costa MD [address] [place] [address] PCP - General 11/28/19 Shanel Parada, RN Nurse Navigator 08/23/22 Tanmay Elliott DO Psychiatrist Psychiatry 08/29/22 Conner Quintero MD [address] [place] [address] Surgeon Urology 01/25/23 Igor Subramanian MD [address] [place] [address] Surgeon Urology 02/12/23 Informatics Application Analyst Relationship Specialty Start Date End Date Shawanda Costa MD [address] [place] [address] PCP - General 11/28/19 Shanel Parada, RN Nurse Navigator 08/23/22 Tanmay Elliott DO Psychiatrist Psychiatry 08/29/22 Conner Quintero MD [address] [place] [address] [address] [place] [address] Surgeon Urology 01/25/23 Igor Subramanian MD [address] [place] [address] [address] [place] [address] Surgeon Urology 02/12/23 Informatics Application Analyst Relationship Specialty Start Date End Date Shawanda Costa MD [address] [place] [address] PCP - General 11/28/19 Shanel Parada, RN Nurse Navigator 08/23/22 Tanmay Elliott DO Psychiatrist Psychiatry 08/29/22 Conner Quintero MD [address] [place] [address] Surgeon Urology 01/25/23 Igor Subramanian MD [address] [place] [address] Surgeon Urology 02/12/23 Informatics Application Analyst Relationship Specialty Start Date End Date Shawanda Costa MD [address] [place] [address] PCP - General 11/28/19 Shanel Parada, RN Nurse Navigator 08/23/22 Tanmay Elliott DO Psychiatrist Psychiatry 08/29/22 Conner Quintero MD [address] [place] [address] Surgeon Urology 01/25/23 Igor Subramanian MD [address] [place] [address] Surgeon Urology 02/12/23 Informatics Application Analyst Relationship Specialty Start Date End Date Shawanda Costa MD [address] [place] [address] Rd [address] [place] [address] PCP - General 11/28/19 Shanel Parada, RN Nurse Navigator 08/23/22 Tanmay Elliott DO Psychiatrist Psychiatry 08/29/22 Conner Quintero MD [address] [place] [address] Surgeon Urology 01/25/23 Igor Subramanian MD [address] [place] [address] Surgeon Urology 02/12/23 Informatics Application Analyst Relationship Specialty Start Date End Date Shawanda Costa MD [address] [place] [address] PCP - General 11/28/19 Shanel Parada, RN Nurse Navigator 08/23/22 Tanmay Elliott DO Psychiatrist Psychiatry 08/29/22 Conner Quintero MD [address] [place] [address] Surgeon Urology 01/25/23 Igor Subramanian MD [address] [place] [address] Surgeon Urology 02/12/23 Informatics Application Analyst Relationship Specialty Start Date End Date Shawanda Costa MD [address] [place], [place] [address] PCP - General 11/28/19 Shanel Parada RN Nurse Navigator 08/23/22 Tanmay Elliott DO Psychiatrist Psychiatry 08/29/22 Conner Quintero MD [address] [place] [address] Surgeon Urology 01/25/23 Igor Subramanian MD [address] [place] [address] Surgeon Urology 02/12/23 Informatics Application Analyst Relationship Specialty Start Date End Date Shawanda Costa MD [address] [place] [address] PCP - General 11/28/19 Shanel Parada RN Nurse Navigator 08/23/22 Tanmay Elliott DO Psychiatrist Psychiatry 08/29/22 Conner Quintero MD [address] [place] [address] Surgeon Urology 01/25/23 Igor Subram[address] MD [address] [place] [address] Surgeon Urology 02/12/23 Informatics Application Analyst Relationship Specialty Start Date End Date Shawanda Costa MD [address] [place] [address] [address] [place], [place] 27[address] PCP - General 11/28/19 Shanel Parada RN Nurse Navigator 08/23/22 Tanmay Elliott DO Psychiatrist Psychiatry 08/29/22 Conner Quintero MD [address] [place] [address] Surgeon Urology 01/25/23 Igor Subramanian MD [address] [place] [address] [address] [place] [address] Surgeon Urology 02/12/23 Informatics Application Analyst Relationship Specialty Start Date End Date Shawanda Costa MD [address] [facility] [address] [place], [place] [address] PCP - General 11/28/19 Shanel Parada RN Nurse Navigator 08/23/22 Tanmay Elliott DO Psychiatrist Psychiatry 08/29/22 Conner Quintero MD [address] [place] [address] Surgeon Urology 01/25/23 Igor Subramanian MD [address] [place] [address] Surgeon Urology 02/12/23 Informatics Application Analyst Relationship Specialty Start Date End Date Shawanda Costa MD [address] [place], [place] [address] PCP - General 11/28/19 Shanel Parada, RN Nurse Navigator 08/23/22 Tanmay Elliott DO Psychiatrist Psychiatry 08/29/22 Conner Quintero MD [address] [place] [address] Surgeon Urology 01/25/23 Igor Subramanian MD [address] [place] [address] Surgeon Urology 02/12/23 Informatics Application Analyst Relationship Specialty Start Date End Date Shawanda Costa MD [address] [place] [address] PCP - General 11/28/19 Shanel Parada, RN Nurse Navigator 08/23/22 Tanmay Elliott DO Psychiatrist Psychiatry 08/29/22 Conner Quintero MD [address] [place] [address] Surgeon Urology 01/25/23 Igor Subramanian MD [address] [place] [address] Surgeon Urology 02/12/23 Informatics Application Analyst Relationship Specialty Start Date End Date Shawanda Costa MD [address] [place] [address] Rd [address] [place] [address] PCP - General 11/28/19 Shanel Parada, RN Nurse Navigator 08/23/22 Tanmay Elliott DO Psychiatrist Psychiatry 08/29/22 Conner Quintero MD [address] [place] [address] Surgeon Urology 01/25/23 Igor Subramanian MD [address] [place] [address] Surgeon Urology 02/12/23 Informatics Application Analyst Relationship Specialty Start Date End Date Shawanda Costa MD [address] [place] [address] Rd [address] [place] [address] PCP - General 11/28/19 Shanel Parada, RN Nurse Navigator 08/23/22 Tanmay Elliott DO Psychiatrist Psychiatry 08/29/22 Conner Quintero MD [address] [place] [address] Surgeon Urology 01/25/23 Igor Subramanian MD [address] [place] [address] Surgeon Urology 02/12/23 Informatics Application Analyst Relationship Specialty Start Date End Date Shawanda Costa MD [address] [place] [address] PCP - General 11/28/19 Shanel Parada, RN Nurse Navigator 08/23/22 Tanmay Elliott DO Psychiatrist Psychiatry 08/29/22 Conner Quintero MD [address] [place] [address] Surgeon Urology 01/25/23 Igor Subramanian MD [address] [place] [address] Surgeon Urology 02/12/23 Informatics Application Analyst Relationship Specialty Start Date End Date Shawanda Costa MD [address] [place] [address] PCP - General 11/28/19 Shanel Parada, RN Nurse Navigator 08/23/22 Tanmay Elliott DO Psychiatrist Psychiatry 08/29/22 Conner Quintero MD [address] [place] [address] Surgeon Urology 01/25/23 Igor Subramanian MD [address] [place] [address] Surgeon Urology 02/12/23 Informatics Application Analyst Relationship Specialty Start Date End Date Shawanda Costa MD [address] [place] [address] PCP - General 11/28/19 Shanel Parada, RN Nurse Navigator 08/23/22 Tanmay Elliott DO Psychiatrist Psychiatry 08/29/22 Conner Quintero MD [address] [place] [address] Surgeon Urology 01/25/23 Igor Subramanian MD [address] [place] [address] Surgeon Urology 02/12/23 Informatics Application Analyst Relationship Specialty Start Date End Date Shawanda Costa MD [address] [place] [address] PCP - General 11/28/19 Shanel Parada, RN Nurse Navigator 08/23/22 Tanmay Elliott DO Psychiatrist Psychiatry 08/29/22 Conner Quintero MD [address] [place] [address] Surgeon Urology 01/25/23 Igor Subramanian MD [address] [place] [address] Surgeon Urology 02/12/23 Informatics Application Analyst Relationship Specialty Start Date End Date Shawanda Costa MD [address] [place] [address] PCP - General 11/28/19 Shanel Parada, RN Nurse Navigator 08/23/22 Tanmay Elliott DO Psychiatrist Psychiatry 08/29/22 Conner Quintero MD [address] [place] [address] Surgeon Urology 01/25/23 Igor Subramanian MD [address] [place] [address] Surgeon Urology 02/12/23 Informatics Application Analyst Relationship Specialty Start Date End Date Shawanda Costa MD [address] [place] [address] PCP - General 11/28/19 Shanel Parada RN Nurse Navigator 08/23/22 Tanmay Elliott DO Psychiatrist Psychiatry 08/29/22 Conner Quintero MD [address] [place] [address] Surgeon Urology 01/25/23 Igor Subramanian MD [address] [place] [address] Surgeon Urology 02/12/23 Informatics Application Analyst Relationship Specialty Start Date End Date Shawanda Costa MD [address] [place] [address] PCP - General 11/28/19 Karma, Shanel, RN Nurse Navigator 08/23/22 Tanmay Elliott DO Psychiatrist Psychiatry 08/29/22 Conner Quintero MD [address] [place] [address] Surgeon Urology 01/25/23 Igor Subramanian MD [address] [place] [address] Surgeon Urology 02/12/23 Informatics Application Analyst Relationship Specialty Start Date End Date Shawanda Costa MD [address] [place] [address] Rd [address] [place], [place] [address] PCP - General 11/28/19 Shanel Parada RN Nurse Navigator 08/23/22 Tanmay Elliott DO Psychiatrist Psychiatry 08/29/22 Conner Quintero MD [address] [place] [address] Surgeon Urology 01/25/23 Igor Subramanian MD [address] [place] [address] Surgeon Urology 02/12/23 Informatics Application Analyst Relationship Specialty Start Date End Date Shawanda Costa MD [address] [place], [place] [address] PCP - General 11/28/19 Shanel Parada RN Nurse Navigator 08/23/22 Tanmay Elliott DO Psychiatrist Psychiatry 08/29/22 Conner Quintero MD [address] [place] [address] Surgeon Urology 01/25/23 Igor Subramanian MD [address] [place] [address] Surgeon Urology 02/12/23 Informatics Application Analyst Relationship Specialty Start Date End Date Shawanda Costa MD [address] [place], [place] [address] PCP - General 11/28/19 Shanel Parada, RN Nurse Navigator 08/23/22 Tanmay Elliott DO Psychiatrist Psychiatry 08/29/22 Conner Quintero MD [address] [place] [address] Surgeon Urology 01/25/23 Igor Subramanian MD [address] [place] [address] Surgeon Urology 02/12/23 Informatics Application Analyst Relationship Specialty Start Date End Date Shawanda Costa MD [address] [place] [address] PCP - General 11/28/19 Shanel Parada, RN Nurse Navigator 08/23/22 Tanmay Elliott DO Psychiatrist Psychiatry 08/29/22 Conner Quintero MD [address] [place] [address] Surgeon Urology 01/25/23 Igor Subramanian MD [address] [place] [address] Surgeon Urology 02/12/23 Informatics Application Analyst Relationship Specialty Start Date End Date Shawanda Costa MD [address] [place] [address] PCP - General 11/28/19 Shanel Parada, RN Nurse Navigator 08/23/22 Tanmay Elliott DO Psychiatrist Psychiatry 08/29/22 Conner Quintero MD [address] [place] [address] Surgeon Urology 01/25/23 Igor Subramanian MD [address] [place] [address] Surgeon Urology 02/12/23 Informatics Application Analyst Relationship Specialty Start Date End Date Shawanda Costa MD [address] [place] [address] [address] [place] [address] PCP - General 11/28/19 Shanel Parada, RN Nurse Navigator 08/23/22 Tanmay Elliott DO Psychiatrist Psychiatry 08/29/22 Conner Quintero MD [address] [place] [address] Surgeon Urology 01/25/23 Igor Subramanian MD [address] [place] [address] Surgeon Urology 02/12/23 Informatics Application Analyst Relationship Specialty Start Date End Date Shawanda Costa MD [address] [place] [address] PCP - General 11/28/19 Shanel Parada, RN Nurse Navigator 08/23/22 Tanmay Elliott DO Psychiatrist Psychiatry 08/29/22 Conner Quintero MD [address] [place] [address] Surgeon Urology 01/25/23 Igor Subramanian MD [address] [place] [address] Surgeon Urology 02/12/23 Informatics Application Analyst Relationship Specialty Start Date End Date Shawanda Costa MD [address] [place] [address] [address] [place] [address] PCP - General 11/28/19 Shanel Parada, RN Nurse Navigator 08/23/22 Tanmay Elliott DO Psychiatrist Psychiatry 08/29/22 Conner Quintero MD [address] [place] [address] Surgeon Urology 01/25/23 Igor Subramanian MD [address] [place] [address] Surgeon Urology 02/12/23 Informatics Application Analyst Relationship Specialty Start Date End Date Shawanda Costa MD [address] [place] [address] PCP - General 11/28/19 Shanel Parada, RN Nurse Navigator 08/23/22 Tanmay Elliott DO Psychiatrist Psychiatry 08/29/22 Conner Quintero MD [address] [place] [address] Surgeon Urology 01/25/23 Igor Subramanian MD [address] [place] [address] Surgeon Urology 02/12/23 Elia Small MD [address] [place] [address] Surgeon Urology 04/24/24 Informatics Application Analyst Relationship Specialty Start Date End Date Shawanda Costa MD [address] [place] [address] PCP - General 11/28/19 Shanel Parada, RN Nurse Navigator 08/23/22 Tanmay Elliott DO Psychiatrist Psychiatry 08/29/22 Conner Quintero MD [address] [place] [address] Surgeon Urology 01/25/23 Igor Subramanian MD [address] [place] [address] Surgeon Urology 02/12/23 Elia Small MD [address] [place] [address] Surgeon Urology 04/24/24 Informatics Application Analyst Relationship Specialty Start Date End Date Shawanda Costa MD [address] [place] [address] PCP - General 11/28/19 Shanel Parada, RN Nurse Navigator 08/23/22 Tanmay Elliott DO Psychiatrist Psychiatry 08/29/22 Conner Quintero MD [address] [place] [address] Surgeon Urology 01/25/23 Igor Subramanian MD [address] [place] [address] Surgeon Urology 02/12/23 Elia Small MD [address] [place] [address] Surgeon Urology 04/24/24 Informatics Application Analyst Relationship Specialty Start Date End Date Shawanda Costa MD [address] [place] [address] PCP - General 11/28/19 Shanel Parada, RN Nurse Navigator 08/23/22 Tanmay Elliott DO Psychiatrist Psychiatry 08/29/22 Conner Quintero MD [address] [place] [address] Surgeon Urology 01/25/23 Igor Subramanian MD [address] [place] [address] Surgeon Urology 02/12/23 Elia Small MD [address] [place] [address] Surgeon Urology 04/24/24 Informatics Application Analyst Relationship Specialty Start Date End Date Shawanda Costa MD [address] [place], [place] [address] PCP - General 11/28/19 Shanel Parada, RN Nurse Navigator 08/23/22 Tanmay Elliott DO Psychiatrist Psychiatry 08/29/22 Conner Quintero MD [address] [place] [address] Surgeon Urology 01/25/23 Igor Subramanian MD [address] [place] [address] Surgeon Urology 02/12/23 Elia Small MD [address] [place] [address] Surgeon Urology 04/24/24 Informatics Application Analyst Relationship Specialty Start Date End Date Shawanda Costa MD [address] [place], [place] [address] PCP - General 11/28/19 Shanel Parada, RN Nurse Navigator 08/23/22 Tanmay Elliott DO Psychiatrist Psychiatry 08/29/22 Conner Quintero MD [address] [place] [address] Surgeon Urology 01/25/23 Igor Subramanian MD [address] [place] [address] Surgeon Urology 02/12/23 Elia Small MD [address] [place] [address] Surgeon Urology 04/24/24 Informatics Application Analyst Relationship Specialty Start Date End Date Shawanda Costa MD [address] [place] [address] [address] [place] [address] PCP - General 11/28/19 Shanel Parada, RN Nurse Navigator 08/23/22 Tanmay Elliott DO Psychiatrist Psychiatry 08/29/22 Conner Quintero MD [address] [place] [address] Surgeon Urology 01/25/23 Igor Subramanian MD [address] [place] [address] Surgeon Urology 02/12/23 Elia Small MD [address] [place] [address] Surgeon Urology 04/24/24 Informatics Application Analyst Relationship Specialty Start Date End Date Shawanda Costa MD [address] [place] [address] PCP - General 11/28/19 Shanel Parada, RN Nurse Navigator 08/23/22 Tanmay Elliott DO Psychiatrist Psychiatry 08/29/22 Conner Quintero MD [address] [place] [address] Surgeon Urology 01/25/23 Igor Subramanian MD [address] [place] [address] Surgeon Urology 02/12/23 Elia Small MD [address] [place] [address] Surgeon Urology 04/24/24 Informatics Application Analyst Relationship Specialty Start Date End Date Shawanda Costa MD [address] [place] [address] PCP - General 11/28/19 Shanel Parada, RN Nurse Navigator 08/23/22 Tanmay Elliott DO Psychiatrist Psychiatry 08/29/22 Conner Quintero MD [address] [place] [address] Surgeon Urology 01/25/23 Igor Subramanian MD [address] [place] [address] Surgeon Urology 02/12/23 Elia Small MD [address] [place] [address] Surgeon Urology 04/24/24 Informatics Application Analyst Relationship Specialty Start Date End Date Shawanda Costa MD [address] [place], [place] [address] PCP - General 11/28/19 Shanel Parada, RN Nurse Navigator 08/23/22 Tanmay Elliott DO Psychiatrist Psychiatry 08/29/22 Conner Quintero MD [address] [place] [address] Surgeon Urology 01/25/23 Igor Subramanian MD [address] [place] [address] Surgeon Urology 02/12/23 Elia Small MD [address] [place] [address] Surgeon Urology 04/24/24 Informatics Application Analyst Relationship Specialty Start Date End Date Shawanda Costa MD [address] [place] [address] PCP - General 11/28/19 Shanel Parada, RN Nurse Navigator 08/23/22 Tanmay Elliott DO Psychiatrist Psychiatry 08/29/22 Conner Quintero MD [address] [place] [address] Surgeon Urology 01/25/23 Igor Subramanian MD [address] [place] [address] Surgeon Urology 02/12/23 Elia Small MD [address] [place] [address] Surgeon Urology 04/24/24 Informatics Application Analyst Relationship Specialty Start Date End Date Shawanda Costa MD [address] [place] [address] Rd [address] [place], [place] [address] PCP - General 11/28/19 Shanel Parada, [place] Nurse Navigator 08/23/22 Tanmay Elliott DO Psychiatrist Psychiatry 08/29/22 Conner Quintero MD [address] [place] [address] Surgeon Urology 01/25/23 Igor Subramanian MD [address] [place] [address] Surgeon Urology 02/12/23 Elia Small MD [address] [place] [address] Surgeon Urology 04/24/24 Informatics Application Analyst Relationship Specialty Start Date End Date Shawanda Costa MD [address] [place], [place] [address] PCP - General 11/28/19 Shanel Parada, RN Nurse Navigator 08/23/22 Tanmay Elliott DO Psychiatrist Psychiatry 08/29/22 Conner Quintero MD [address] [place] [address] Surgeon Urology 01/25/23 Igor Subramanian MD [address] [place] [address] Surgeon Urology 02/12/23 Elia Small MD [address] [place] [address] Surgeon Urology 04/24/24 Informatics Application Analyst Relationship Specialty Start Date End Date Shawanda Costa MD [address] [place] [address] [address] [place] [address] PCP - General 11/28/19 Shanel Parada, RN Nurse Navigator 08/23/22 Tanmay Elliott DO Psychiatrist Psychiatry 08/29/22 Conner Quintero MD [address] [place] [address] Surgeon Urology 01/25/23 Igor Subramanian MD [address] [place] [address] Surgeon Urology 02/12/23 Elia Small MD [address] [place] [address] Surgeon Urology 04/24/24 Informatics Application Analyst Relationship Specialty Start Date End Date Shawanda Costa MD [address] [place] [address] [address] [place] [address] PCP - General 11/28/19 Shanel Parada, RN Nurse Navigator 08/23/22 Tanmay Elliott DO Psychiatrist Psychiatry 08/29/22 Conner Quintero MD [address] [place] [address] Surgeon Urology 01/25/23 Igor Subramanian MD [address] [place] [address] Surgeon Urology 02/12/23 Elia Small MD [address] [place] [address] Surgeon Urology 04/24/24 Informatics Application Analyst Relationship Specialty Start Date End Date Shawanda Costa MD [address] [place] [address] PCP - General 11/28/19 Shanel Parada RN Nurse Navigator 08/23/22 Tanmay Elliott DO [address] [facility] [address] [place] [address] Psychiatrist Psychiatry 08/29/22 Informatics Application Analyst Relationship Specialty Start Date End Date Shawanda Costa MD [address] [place] [address] PCP - General 11/28/19 Shanel Parada, RN Nurse Navigator 08/23/22 Tanmay Elliott DO [address] [address] Psychiatrist Psychiatry 08/29/22 Informatics Application Analyst Relationship Specialty Start Date End Date Shawanda Costa MD [address] [place] [address] PCP - General 11/28/19 Shanel Parada, RN Nurse Navigator 08/23/22 Tanmay Elliott DO [address] [address] Psychiatrist Psychiatry 08/29/22 Informatics Application Analyst Relationship Specialty Start Date End Date Shawanda Costa MD [address] [place] [address] PCP - General 11/28/19 Shanel Parada RN Nurse Navigator 08/23/22 Tanmay Elliott DO [address] [address] Psychiatrist Psychiatry 08/29/22 Informatics Application Analyst Relationship Specialty Start Date End Date Shawanda Costa MD [address] [place] [address] PCP - General 11/28/19 Shanel Parada RN Nurse Navigator 08/23/22 Tanmay Elliott DO Psychiatrist Psychiatry 08/29/22 Conner Quintero MD [address] [place], [place] [address] Surgeon Urology 01/25/23 Igor Subramanian MD [address] [place], [place] [address] Surgeon Urology 02/12/23 Elia Small MD [address] [place] [address] Surgeon Urology 04/24/24 Informatics Application Analyst Relationship Specialty Start Date End Date Shawanda Costa MD [address] [place] [address] PCP - General 11/28/19 Shanel Parada, RN Nurse Navigator 08/23/22 Tanmay Elliott DO Psychiatrist Psychiatry 08/29/22 Conner Quintero MD [address] [place] [address] Surgeon Urology 01/25/23 Igor Subramanian MD [address] [place] [address] Surgeon Urology 02/12/23 Elia Small MD [address] [place] [address] Surgeon Urology 04/24/24 Informatics Application Analyst Relationship Specialty Start Date End Date Shawanda Costa MD [address] [place] [address] PCP - General 11/28/19 Shanel Parada, RN Nurse Navigator 08/23/22 Tanmay Elliott DO Psychiatrist Psychiatry 08/29/22 Conner Quintero MD [address] [place] [address] Surgeon Urology 01/25/23 Igor Subramanian MD [address] [place] [address] Surgeon Urology 02/12/23 Elia mSall MD [address] [place] [address] Surgeon Urology 04/24/24 Informatics Application Analyst Relationship Specialty Start Date End Date Shawanda Costa MD [address] [facility] [address] [place], [place] [address] PCP - General 11/28/19 Shanel Parada, RN Nurse Navigator 08/23/22 Tanmay Elliott DO Psychiatrist Psychiatry 08/29/22 Conner Quintero MD [address] [place] [address] Surgeon Urology 01/25/23 Igor Subramanian MD [address] [place] [address] Surgeon Urology 02/12/23 Elia Small MD [address] [place] [address] Surgeon Urology 04/24/24 Informatics Application Analyst Relationship Specialty Start Date End Date Shawanda Costa MD [address] [place], [place] [address] PCP - General 11/28/19 Shanel Parada, RN Nurse Navigator 08/23/22 Tanmay Elliott DO Psychiatrist Psychiatry 08/29/22 Conner Quintero MD [address] [place] [address] Surgeon Urology 01/25/23 Igor Subramanian MD [address] [place] [address] Surgeon Urology 02/12/23 Elia Small MD [address] [place] [address] Surgeon Urology 04/24/24 Informatics Application Analyst Relationship Specialty Start Date End Date Shawanda Costa MD [address] [place] [address] [address] [place] [address] PCP - General 11/28/19 Shanel Parada RN Nurse Navigator 08/23/22 Tanmay Elliott DO Psychiatrist Psychiatry 08/29/22 Conner Quintero MD [address] [place] [address] Surgeon Urology 01/25/23 Igor Subramanian MD [address] [place] [address] Surgeon Urology 02/12/23 Elia Small MD [address] [place] [address] Surgeon Urology 04/24/24 Informatics Application Analyst Relationship Specialty Start Date End Date Lishnevski, Shawanda, MD [address] [place] [address] PCP - General 11/28/19 Shanel Parada, RN Nurse Navigator 08/23/22 Tanmay Elliott DO Psychiatrist Psychiatry 08/29/22 Conner Quintero MD [address] [place] [address] Surgeon Urology 01/25/23 Igor Subramanian MD [address] [place] [address] Surgeon Urology 02/12/23 Elia Small MD [address] [place] [address] Surgeon Urology 04/24/24 Informatics Application Analyst Relationship Specialty Start Date End Date Shawanda Costa MD [address] [place] [address] PCP - General 11/28/19 Shanel Parada, RN Nurse Navigator 08/23/22 Tanmay Elliott DO Psychiatrist Psychiatry 08/29/22 Conner Quintero MD [address] [place] [address] Surgeon Urology 01/25/23 Igor Subramanian MD [address] [place] [address] Surgeon Urology 02/12/23 Elia Small MD [address] [facility] [address] [place] [phone] Surgeon Urology 04/24/24 (unrecognized sect ion and content) No Status Records FoundNo Status Records FoundNo Status Records Found INFORMATION SOURCE (unrecogn ized section and content) DATE CREATED AUTHOR 07/27/2022 [facility] DATE CREATED AUTHOR AUTHOR'S ORGANIZ ATION 05/26/2024 [facility] DATE CREATED AUTHOR AUTHOR'S ORGANIZ ATION 03/27/2025 [facility] Reason for Visit (unrecogniz ed section and content) Reason Comments Follow-up Back Pain Muscle spasm possibl y, patient said Reason Onset Date Comments Results 01/04/2023 Reason Onset Date Comments Med Refill 01/17/2023 Reason Comments New Patient Tremors in both hand s and head Specialty Diagnoses / Procedures Referred By Contac t Referred To Contact Neurology Diagnoses Coarse tremors Procedures [place] [facility] 60-74 MINUTES Shawanda Costa MD [address] [place] [address] [facility] [address] [facility] [address] [place] [address] Referral ID Status Reason Start Date Expiration Date Visits Requested Visits Authorized [id number] Pending Review Specialty Services Required 10/31/2022 04/29/2023 1 1 Reason Comments Dizziness Fever Specialty Diagnoses / Procedures Referred By Contac t Referred To Contact Diagnoses Dizziness Lightheadedness Hyponatremia Elevated troponin Acute cystitis without hematuria Gram-negative sepsis, unspecified (HCC) Procedures R42 Renato Marmolejo DO [address] [place] [address] [facility] 4s Telemetry [address] [place] [address] Referral ID Status Reason Start Date Expiration Date Visits Re quested Visits Authorized [id number] 1 1 Reason Onset Date Comments +COVID 02/19/2023 Reason Comments Hospital Follow-up Specialty Diagnoses / Procedures Referred By Contac t Referred To Contact Cardiology Diagnoses Troponin level elevated Procedures [place] [facility] MDM 60-74 MINUTES Shawanda Costa MD [address] [place] [address] [facility] [address] [facility] [address] [place] [address] Referral ID Status Reason Start Date Expiration Date V isits Requested Visits Authorized [id number] Closed Specialty Services Required 03/07/2023 03/06/2024 1 1 Reason Onset Date Comments Release of Information 02/22/2023 Reason Onset Date Comments Surgery Scheduling 03/30/2023 Surgery Time Change Specialty Diagnoses / Procedures Referred By Contac t Referred To Contact Diagnoses Calculus of kidney Calculus of kidney [N20.0] Procedures [place] CYSTO BLADDER W/URETERAL CATHETERIZATION [place] CYSTO W/URETEROSCOPY W/LITHOTRIPSY [place] CYSTO W/INSERT URETERAL STENT CYSTOSCOPY AND PYELOGRAM, LEFT URETEROSCOPY, HOLMIUM LASER LITHOTRIPSY, LEFT URETERAL STENT CHANGE CYSTOSCOPY WITH URETEROSCOPY AND OR PYELOSCOPY WITH REMOVAL OR MANIPULATION CALCULUS WITH LITHOTRIPSY CYSTOSCOPY WITH INSERTION URETERAL STENT Igor Subramanian MD [address] [place] [address] [facility] [address] [place] [address] Referral ID Status Reason Start Date Expiration Date Visits Re quested Visits Authorized [id number] 1 1 Reason Comments Follow-up Tremors Reason Comments Procedure Stent removal Reason Onset Date Comments Med Refill 05/16/2023 Specialty Diagnoses / Procedures Referred By Contac t Referred To Contact Radiology Diagnoses Personal history of nicotine dependence Procedures CT lung screening low dose [facility] [address] [place] [address] Referral ID Status Reason Start Date Expiration Date Visits Re quested Visits Authorized [id number] Closed 07/31/2022 07/16/2023 1 1 Reason Onset Date Comments Advice Only 02/12/2023 Reason Comments Mouth Lesions Reason Onset Date Comments scheduling 02/02/2023 Reason Comments Med Refill Reason Comments Follow-up Reason Onset Date Comments PT order 07/20/2023 Specialty Diagnoses / Procedures Referred By Edin rodriguez Referred To Contact Radiology Diagnoses Renal mass Renal cyst Procedures MR abdomen w and wo contrast Conner Quintero MD [address] [place] [address] Referral ID Status Reason Start Date Expiration Date Visits Re quested Visits Authorized [id number] Closed 01/25/2023 2023 1 1 Reason Comments Renal mass 6 month follow up MR I prior Specialty Diagnoses / Procedures Referred By Edin rodriguez Referred To Contact Physical Therapy Diagnoses Chronic thoracic back pain, unspecified back pain laterality Procedures [place] OFFICE/OUTPATIENT [facility] MDM 60-74 MINUTES Milana Hussein, SIMÓN [address] [address] [facility] Pt [address] [place] [address] [place] [address] Referral ID Status Reason Start Date Expiration Date Visits Requested Visits Authorized [id number] Authorized Specialty Services Required 07/20/2023 07/19/2024 99 99 Reason Comments Medicare Annual Wellness Visit Initial Reason Onset Date Comments Med Refill 09/12/2023 Reason Onset Date Comments Med Refill 09/19/2023 Reason Onset Date Comments Med Refill 11/11/2023 Reason Onset Date Comments Med Refill 11/18/2023 Reason Onset Date Comments Med Refill 01/14/2024 Reason Comments Renal Mass 6 month follow up RU S prior Reason Onset Date Comments Med Refill 02/20/2024 Reason Onset Date Comments Surgery Scheduling 03/04/2024 Reason Onset Date Comments Med Refill 03/10/2024 Specialty Diagnoses / Procedures Referred By Edin rodriguez Referred To Contact Diagnoses Other specified disorders of kidney and ureter Procedures [place] LAPAROSCOPY RADICAL NEPHRECTOMY ROBOTIC RIGHT RADICAL NEPHRECTOMY Conner Quintero MD [address] [place] [address] [facility] Or [address] [place] [address] Referral ID Status Reason Start Date Expiration Date Visits Re quested Visits Authorized [id number] 1 1 Reason Comments Post-op Problem Pt reports to ED wit h post-op problem; pt reports has incision site bleeding. Bleeding is controlled at this time. Pt states he had a kidney removed on Monday. Pt is stable with even & unlabored respirations in triage. Reason Onset Date Comments Drainage from Incision 04/13/2024 Reason Comments Wound Check Midline incision to abdomen from recent surgery with drainage. 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 [place] [address] Referral ID Status Reason Start Date Expiration Date Visits Re quested Visits Authorized [id number] Closed 05/30/2023 05/30/2024 1 1 Reason Onset Date Comments Med Refill 07/01/2024 Reason Comments Lung Nodule Specialty Diagnoses / Procedures Referred By Contac t Referred To Contact Radiology Diagnoses Renal cancer, right (HCC) Hematoma Procedures CT abdomen pelvis wo IV contrast Conner Quintero MD [address] [place] [address] Referral ID Status Reason Start Date Expiration Date Visits Re quested Visits Authorized [id number] Closed 04/24/2024 04/24/2025 1 1 Reason Comments Follow-up Cancer Patient here for fol low up for imaging review for renal mass history Reason Comments Follow-up Pt has already had f blanquita vaccine this season. Reason Comments 1 Year Follow-up Other Mildly dilated ascen ding aorta Reason Comments New Patient New patient referred by Dr Quintero regarding abnormal CT scan/Hepatic cysts/cysts found incidental/patient currently not having any symptoms. Specialty Diagnoses / Procedures Referred By Edin rodriguez Referred To Contact General Surgery Diagnoses Liver cyst Procedures [place] OFFICE/OUTPATIENT [facility] MDM 60 MINUTES Conner Quintero MD [address] [place] [address] Phone: tel: fax: Tavo Wick MD [address] [place] [address] Phone: tel: fax: Referral ID Status Reason Start Date Expiration Date V isits Requested Visits Authorized [id number] Closed Specialty Services Required 08/22/2024 08/22/2025 1 1 Reason Comments Follow-up Establish Care Reason Comments Tremors Reason Comments Follow-up Memory Loss Reason Comments New Patient Pt presents for eval uation of rectal bleeding, seen by KAREN 2020, Glendy Porter 2019, pt has long history of rectal bleeding, no pain w/BM's (does have pain at times with hemorrhoid flare-up), last colonoscopy was about 6 or 7 years ago (done in [place]) Specialty Diagnoses / Procedures Referred By Contact Referred To Contact Gastroenterology Diagnoses Liver lesion Procedures [place] OFFICE/OUTPATIENT NEW [facility] MDM 60 MINUTES Shawanda Costa MD [address] [facility] [address] [place] [address] Phone: tel: fax: [facility] [place] [address] [place] [address] Phone: tel: fax: Referral ID Status Reason Start Date Expiration Date V isits Requested Visits Authorized [id number] Closed Specialty Services Required 02/07/2024 02/06/2025 1 1 Scheduled Active and Recently Administ ered Medications (unrecognized section and content) Medication Order 02/12/2023 02/13/2023 02/14/2023 ampicillin (Omnipen) 2,000 mg in sodium chloride 0.9 % 100 mL IVPB 2,000 mg, IntraVENous, at 200 mL/hr, Administer over 30 Minutes, Every 4 hours, First dose on 02/13/23 at 1200, Mini-Bag Plus bag, Suspected Indication (Select all that apply): Urinary Tract Infection 1338 (New Bag - Provider: Yamilet Donald RN)1408 (Stopped - Provider: Yamilet Donald RN)1743 (New Bag - Provider: Yamilet Donald RN)1813 (Stopped - Provider: Yamilet Donald, FRANCHESKA)2020 (New Bag - Provider: Saira Valdovinos RN)205 (Stopped - Provider: Saira Valdovinos RN) 004 (New Bag - Provider: Saira Valdovinos RN)0112 (Stopped - Provider: Kiah West, FRANCHESKA)0515 (New Bag - Provider: Kiah West, FRANCHESKA)0545 (Stopped - Provider: Kiah West, RN)0930 (New Bag - Provider: Yamilet Donald RN)1000 (Stopped - Provider: Yamilet Donald RN)1330 (Canceled Entry - Provider: Automatic Discharge Provider - Comment: Automatically canceled at discontinue of medication order) cefTRIAXone (Rocephin) 2,000 mg in sodium chloride 0.9 % 50 mL IVPB Mini-Bag Plus (CANCELED) 2,000 mg, IntraVENous, at 100 mL/hr, Administer over 30 Minutes, Every 24 hours, First dose on 02/12/23 at 1200, Mini-Bag Plus bag, Suspected Indication (Select all that apply): Urinary Tract Infection 1030 (DEC Hold - Provider: Automatic Transfer Provider - Reason: Patient not available)1129 (DEC Unhold - Provider: Automatic Transfer Provider)1327 (New Bag - Provider: Sarah Stewart RN)1357 (Stopped - Provider: Sarah Stewart RN) fluticasone (Flonase) nasal spray 1 spray 1 spray, Each Nostril, Daily, First dose on 02/11/23 at 1900, Shake gently. Before first use, prime pump (press 6 times until fine spray appears). After use, clean tip and replace cap. 1030 (DEC Hold - Provider: Automatic Transfer Provider - Reason: Patient not available)1129 (DEC Unhold - Provider: Automatic Transfer Provider)1330 (Given - Provider: Sarah Stewart RN) 0948 (Given - Provider: Yamilet Donald, FRANCHESKA) 0822 (Given - Provider: Yamilet Donald, FRANCHESKA) gabapentin (Neurontin) tablet 600 mg 600 mg, Oral, 2 times daily, First dose on 02/12/23 at 0315 0403 (Given - Provider: Sabreena Lagray, RN)1030 (DEC Hold - Provider: Automatic Transfer Provider - Reason: Patient not available)1129 (DEC Unhold - Provider: Automatic Transfer Provider)2144 (Given - Provider: Dimitris Rueda RN) 0943 (Given - Provider: Yamilet Donald, FRANCHESKA)2018 (Given - Provider: Saira Valdovinos RN) 0819 (Given - Provider: Yamilet Donald, FRANCHESKA) losartan (Cozaar) tablet 100 mg 100 mg, Oral, Daily, First dose on 02/11/23 at 1830, Substituted for Telmisartan (MICARDIS). Hold if SBP<100 1030 (DEC Hold - Provider: Automatic Transfer Provider - Reason: Patient not available)1129 (DEC Unhold - Provider: Automatic Transfer Provider)1501 (Given - Provider: Sarah Stewart RN - Comment: reviewed r/t bradycardia) 1338 (Given - Provider: Yamilet Donald RN - Comment: pt request) 0819 (Given - Provider: Yamilet Donald RN) PARoxetine (Paxil) tablet 30 mg 30 mg, Oral, Daily, First dose on 02/11/23 at 1830 1030 (DEC Hold - Provider: Automatic Transfer Provider - Reason: Patient not available)1129 (DEC Unhold - Provider: Automatic Transfer Provider)1347 (Given - Provider: Sarah Stewart RN) 0943 (Given - Provider: Yamilet Donald RN) 0819 (Given - Provider: Yamilet Donald, FRANCHESKA) propranolol (Inderal) tablet 20 mg 20 mg, Oral, 2 times daily, First dose on 02/11/23 at 2100, Hold if HR <60 or SBP<90 0900 (Not Given - Provider: Sarah Stewart RN - Reason: Other - Comment: per [place] r/t bradycardia)1030 (DEC Hold - Provider: Automatic Transfer Provider - Reason: Patient not available)1129 (DEC Unhold - Provider: Automatic Transfer Provider)2145 (Not Given - Provider: Dimitris Rueda RN - Reason: Other - Comment: Do not give tonight per Dr. Benson, patient heart rate 45-60) 0900 (Not Given - Provider: Yamilet Donald RN - Reason: Order parameters not met - Comment: hr 52)2100 (Not Given - Provider: Saira Valdovinos RN - Reason: Order parameters not met - Comment: hr 57) 0900 (Not Given - Provider: Yamilet Donald RN - Reason: Order parameters not met) sodium chloride 0.9 % bolus 500 mL (COMPLETED) 500 mL, IntraVENous, at 500 mL/hr, Administer over 1 Hours, Once, On 02/12/23 at 0100, For 1 dose 0100 (New Bag - Provider: Dimitris Rueda RN - Comment: Given from bag currently hanging)0101 (Rate/Dose Change - Provider: Dimitris Rueda RN - Comment: Bolus given from bag currently hangingBag was hung on this shift)0200 (Stopped - Provider: Dimitris Rueda RN) sodium chloride 0.9% (NS) flush 5-40 mL 5-40 mL, IntraVENous, Every 12 hours scheduled (2 times per day), First dose on 02/11/23 at 1125, For Line Patency: Peripheral IV = 5 mL; Midline or Central Line = 10 mL/lumen. If following IV push medication, administer flush at same rate as the IV push. Flush volume is determined by type of infusion therapy being given. For non-viscous solutions use: Peripheral IV = 5 mL Midline or Central Line = 10 mL/lumen For viscous solutions (i.e. blood components, parenteral nutrition, contrast media, or after obtaining blood sample) use: Peripheral IV = 10 mL Midline or Central Line = 20 mL/lumen 0900 (Not Given - Provider: Sarah Stewart RN - Reason: Other)1030 (DEC Hold - Provider: Automatic Transfer Provider - Reason: Patient not available)1129 (MAR Unhold - Provider: Automatic Transfer Provider)2144 (Given - Provider: Dimitris Rueda RN) 0948 (Given - Provider: Yamilet Donald, FRANCHESKA)2019 (Given - Provider: Saira Valdovinos RN) 0931 (Given - Provider: Yamilet Donald, FRANCHESKA) tamsulosin (Flomax) 24 hr capsule 0.4 mg 0.4 mg, Oral, Daily, First dose on 02/11/23 at 1830, Do not crush, chew, or split. 1030 ([facility] Hold - Provider: Automatic Transfer Provider - Reason: Patient not available)1129 ([facility] Unhold - Provider: Automatic Transfer Provider)1347 (Given - Provider: Sarah Stewart, RN) 0943 (Given - Provider: Yamilet Donald, RN) 0819 (Given - Provider: Yamilet Donald, RN) Continuous Medication Order 02/12/2023 02/13/2023 02/14/2023 sodium chloride 0.9 % infusion 100 mL/hr, IntraVENous, Continuous, Starting on 02/12/23 at 0100 0202 (New Bag - Provider: Dimitris Rueda, RN) 2224 (New Bag - Provider: Saira Valdovinos, RN) 0514 (New Bag - Provider: Kiah West RN) PRN Medication Order 02/12/2023 02/13/2023 02/14/2023 acetaminophen (Tylenol) suppository 650 mg(Linked Group 1) 650 mg, Rectal, Every 6 hours PRN, mild pain (1-3), fever, For temp greater than 100.4 F (38 C), Starting on 02/11/23 at 1825, Administer if oral route cannot be used. Maximum dose of acetaminophen is 4000 mg from all sources in 24 hours. 1030 ([facility] Hold - Provider: Automatic Transfer Provider - Reason: Patient not available)1129 ([facility] Unhold - Provider: Automatic Transfer Provider) acetaminophen (Tylenol) tablet 650 mg(Linked Group 1) 650 mg, Oral, Every 6 hours PRN, mild pain (1-3), fever, For temp greater than 100.4 F (38 C), Starting on 02/11/23 at 1825, Maximum dose of acetaminophen is 4000 mg from all sources in 24 hours. 1030 ([facility] Hold - Provider: Automatic Transfer Provider - Reason: Patient not available)1129 ([facility] Unhold - Provider: Automatic Transfer Provider) clonazePAM (KlonoPIN) tablet 0.25 mg 0.25 mg, Oral, Daily PRN, anxiety, Starting on 02/11/23 at 1824 1030 ([facility] Hold - Provider: Automatic Transfer Provider - Reason: Patient not available)1129 ([facility] Unhold - Provider: Automatic Transfer Provider) iopamidol (Isovue-300) 61 % injection (CANCELED) As needed, Starting on 02/12/23 at 1040, Intraprocedure 1040 (Given - Provider: Igor Subramanian MD) ketorolac (Toradol) injection 15 mg 15 mg, IntraVENous, Every 6 hours PRN, moderate pain (4-6), Starting on 02/11/23 at 1828, For 5 days 1030 ([facility] Hold - Provider: Automatic Transfer Provider - Reason: Patient not available)1129 ([facility] Unhold - Provider: Automatic Transfer Provider) morphine sulfate (PF) injection 2 mg 2 mg, IntraVENous, Every 4 hours PRN, severe pain (7-10), Starting on 02/11/23 at 1828, If oral and IV narcotics ordered, use oral first and only use IV if oral is ineffective or cannot take oral. Do Not give oral and IV within 1 hour of each other unless specifically ordered. 1030 ([facility] Hold - Provider: Automatic Transfer Provider - Reason: Patient not available)1129 ([facility] Unhold - Provider: Automatic Transfer Provider) ondansetron ODT (Zofran-ODT) disintegrating tablet 4 mg 4 mg, Oral, Every 8 hours PRN, nausea, vomiting, Starting on 02/11/23 at 1825, 1st Line. If inadequate response within 60 minutes, proceed to next-line agent or contact provider if no further options ordered. Patient should allow tablet to dissolve on tongue. Do not remove from blister pack until just before administering. 1030 ([facility] Hold - Provider: Automatic Transfer Provider - Reason: Patient not available)1129 ([facility] Unhold - Provider: Automatic Transfer Provider) perflutren lipid microspheres (Definity) injection 1.65 mg (COMPLETED) 1.65 mg, IntraVENous, IMG once PRN, other, Suboptimal echo image, Starting on 02/13/23 at 1614, For 1 dose, CV Procedural Medications, Administer up to 1.65 mg via slow IVP for suboptimal echocardiogram enhancement. May administer a calculated dose or diluted 8.5 mL of 0.9% sodium chloride for a total volume of 10 mL. May administer as divided doses to reach optimal image enhancement 1620 (Given - Provider: Yamilet Donald RN) polyethylene glycol (PEG) 3350 (Miralax) packet 17 g 17 g, Oral, Daily PRN, constipation, Starting on 02/11/23 at 1825, 1st line for treatment of constipation - give scheduled if no bowel movement in past 24 hours. 1030 ([facility] Hold - Provider: Automatic Transfer Provider - Reason: Patient not available)1129 ([facility] Unhold - Provider: Automatic Transfer Provider) sodium chloride 0.9 % infusion 5-250 mL/hr, IntraVENous, PRN, if patient receiving piggyback infusions and maintenance fluids are not ordered OR KVO fluids to protect IV site / prevent frequent line interruptions/ long duration, Starting on 02/11/23 at 1120, For piggyback infusion, administer at same rate as piggyback for a total of 25 mL. Enter 25 mL into dose field and piggyback rate into rate field of order. If piggyback is infusing at a rate less than 100 mL/hr, enter 25 mL into dose field and 100 mL/hr into rate field of order. For KVO fluids, enter rate of 20 mL/hr or less into rate field of order. 1030 ([facility] Hold - Provider: Automatic Transfer Provider - Reason: Patient not available)1129 ([facility] Unhold - Provider: Automatic Transfer Provider) sodium chloride 0.9% (NS) flush 5-40 mL 5-40 mL, IntraVENous, PRN, line care, Starting on 02/11/23 at 1120, For Line Patency: Peripheral IV = 5 mL; Midline or Central Line = 10 mL/lumen. If following IV push medication, administer flush at same rate as the IV push. Flush volume is determined by type of infusion therapy being given. For non-viscous solutions use: Peripheral IV = 5 mL Midline or Central Line = 10 mL/lumen For viscous solutions (i.e. blood components, parenteral nutrition, contrast media, or after obtaining blood sample) use: Peripheral IV = 10 mL Midline or Central Line = 20 mL/lumen 1030 ([facility] Hold - Provider: Automatic Transfer Provider - Reason: Patient not available)1129 ([facility] Unhold - Provider: Automatic Transfer Provider) sterile water irrigation solution (CANCELED) As needed, Starting on 02/12/23 at 1032, Intraprocedure 1032 (Given - Provider: Igor Subramanian MD) Linked Groups Order Group 1: acetaminophen (Tylenol) tablet 650 mgJump to med 650 mg, Oral, Every 6 hours PRN, mild pain (1-3), fever, For temp greater than 100.4 F (38 C), Starting on 02/11/23 at 1825
Maximum dose of acetaminophen is 4000 mg from all sources in 24 hours.
Or acetaminophen (Tylenol) suppository 650 mgJump to med 650 mg, Rectal, Every 6 hours PRN, mild pain (1-3), fever, For temp greater than 100.4 F (38 C), Starting on 02/11/23 at 1825
Administer if oral route cannot be used. Maximum dose of acetaminophen is 4000 mg from all sources in 24 hours.
Scheduled Medication Order 04/02/2023 04/03/2023 04/04/2023 acetaminophen (Tylenol) tablet 1,000 mg (COMPLETED) 1,000 mg, Oral, Once, On Mon04/04/23 at 0930, For 1 dose, Preprocedure, Maximum dose of acetaminophen is 4000 mg from all sources in 24 hours. Do not administer if patient has taken tylenol <4 hours earlier. Do not give if contraindicated ie. patient has active liver disease or cirrhosis. 0958 (Given - Provid er: Carol Parra RN) ceFAZolin in dextrose 4% (Ancef) IVPB 2,000 mg (COMPLETED) 2,000 mg, IntraVENous, Administer over 30 Minutes, Once, On Mon04/04/23 at 0930, For 1 dose, Preprocedure, Administer 60 minutes prior to surgery. premix bag, Suspected Indication (Select all that apply): Surgical Prophylaxis 1309 (Given - Provid er: Monet Cadet CRNA)1409 (Anesthesia Volume Adjustment - Provider: Monet Cadet CRNA) famotidine (Pepcid) tablet 20 mg (COMPLETED) 20 mg, Oral, Once, On Mon04/04/23 at 0930, For 1 dose, Preprocedure, IV or ORAL 0958 (Given - Provid er: Carol Parra RN) sodium chloride 0.9 % bolus 500 mL 500 mL, IntraVENous, at 1,000 mL/hr, Administer over 0.5 Hours, Once, On Mon04/04/23 at 1415, For 1 dose, Recovery (only), Indications: Anti-nausea 1415 (Canceled Entry - Provider: Automatic Discharge Provider - Comment: Automatically canceled at discontinue of medication order) sodium chloride 0.9% (NS) flush 10 mL 10 mL, IntraVENous, Every 12 hours scheduled (2 times per day), First dose on Mon04/04/23 at 0930, Preprocedure 0930 (Canceled Entry - Provider: Automatic Discharge Provider - Comment: Automatically canceled at discontinue of medication order) sodium chloride 0.9% (NS) flush 5-40 mL 5-40 mL, IntraVENous, Every 12 hours, First dose on Mon04/04/23 at 0930, Preprocedure, For Line Patency: Peripheral IV = 5 mL; Midline or Central Line = 10 mL/lumen. If following IV push medication, administer flush at same rate as the IV push. Flush volume is determined by type of infusion therapy being given. For non-viscous solutions use: Peripheral IV = 5 mL Midline or Central Line = 10 mL/lumen For viscous solutions (i.e. blood components, parenteral nutrition, contrast media, or after obtaining blood sample) use: Peripheral IV = 10 mL Midline or Central Line = 20 mL/lumen 0930 (Canceled Entry - Provider: Automatic Discharge Provider - Comment: Automatically canceled at discontinue of medication order) Continuous Medication Order 04/02/2023 04/03/2023 04/04/2023 lactated Ringer's infusion 50 mL/hr, IntraVENous, Continuous, Starting on Mon04/04/23 at 0930, Preprocedure, Upon admission to sameday - please start iv if patient does not have iv access. Use 500ml NS for patients on dialysis. 0958 (New Bag - Prov ider: Carol Parra RN)1256 (Continued by Anesthesia - Provider: Monet Cadet CRNA)1409 (Stopped - Provider: Monet Cadet CRNA) lactated Ringer's infusion 125 mL/hr, IntraVENous, Continuous, Starting on Mon04/04/23 at 1415, Recovery (only) 1415 (Canceled Entry - Provider: Automatic Discharge Provider - Comment: Automatically canceled at discontinue of medication order) PRN Medication Order 04/02/2023 04/03/2023 04/04/2023 diphenhydrAMINE (BENADryl) injection 12.5 mg 12.5 mg, IntraVENous, Once PRN, itching, Starting on Mon04/04/23 at 1414, For 1 dose, Recovery (only) hydrALAZINE (Apresoline) injection 5 mg(Linked Group 1) 5 mg, IntraVENous, Every 15 min PRN, high blood pressure, for SBP greater than 160 mmHg for 2 consecutive measurements taken from different sites, Starting on Mon04/04/23 at 1414, For 2 doses, Recovery (only), PRN for SBP > 160 for 2 consecutive measurements, and if one of the following conditions is met: 1) If IV labetolol is ineffective. 2) If HR is under 60. 3) If patient has heart block, COPD or asthma. If both labetalol and hydralazine ineffective, notify anesthesia provider. HYDROmorphone (Dilaudid) injection 0.25 mg 0.25 mg, IntraVENous, Every 5 min PRN, moderate pain (4-6), Starting on Mon04/04/23 at 1414, For 4 doses, Recovery (only), Phase I and Phase II- Initial therapy for moderate pain (4-6). Restricted to a 90 minute time frame starting when the patient can verbally state their pain score. If after 2 doses the pain score does not decrease by more than one point, then call the provider. If oral meds are utilized, do not return to initial therapy medications. HYDROmorphone (Dilaudid) injection 0.5 mg 0.5 mg, IntraVENous, Every 5 min PRN, severe pain (7-10), Starting on Mon04/04/23 at 1414, For 4 doses, Recovery (only), Phase I and Phase II- Initial therapy for moderate pain (4-6). Restricted to a 90 minute time frame starting when the patient can verbally state their pain score. If after 2 doses the pain score does not decrease by more than one point, then call the provider. If oral meds are utilized, do not return to initial therapy medications. iopamidol (Isovue-300) 61 % injection (CANCELED) As needed, Starting on Mon04/04/23 at 1305, Intraprocedure 1305 (Given - Provid er: Igor Subramanian MD - Comment: diluted with 10 ml normal saline injectable) labetalol (Normodyne,Trandate) injection 5 mg(Linked Group 1) 5 mg, IntraVENous, Every 10 min PRN, high blood pressure, for SBP greater than 160 mmHg for 2 consecutive measurements taken from different sites., Starting on Mon04/04/23 at 1414, For 2 doses, Recovery (only), PRN for SBP >160 for 2 consecutive measurements, if HR is 60 or greater. If beta radha is contraindicated (HR less than 60, heart block, COPD or asthma) use hydralazine IV order. LORazepam (Ativan) injection 0.5 mg 0.5 mg, IntraVENous, Once PRN, for anxiety or muscle spasm., Starting on Mon04/04/23 at 1414, For 1 dose, Recovery (only), For IV doses dilute dose with 1ml NS. metoclopramide (Reglan) injection 5 mg 5 mg, IntraVENous, Once PRN, nausea, Starting on Mon04/04/23 at 1414, For 1 dose, Recovery (only), Secondary antiemetic therapy. Notify anesthesia provider before administration. ondansetron (Zofran) injection 4 mg 4 mg, IntraVENous, Once PRN, nausea, Starting on Mon04/04/23 at 1414, For 1 dose, Recovery (only), Initial antiemetic therapy. oxyCODONE (Roxicodone) immediate release tablet 10 mg(Linked Group 2) 10 mg, Oral, PRN, severe pain (7-10), Starting on Mon04/04/23 at 1414, For 1 dose, Recovery (only), PHASE II oxyCODONE (Roxicodone) immediate release tablet 5 mg(Linked Group 2) 5 mg, Oral, PRN, moderate pain (4-6), Starting on Mon04/04/23 at 1414, For 1 dose, Recovery (only), PHASE II sodium chloride 0.9 % infusion 5-250 mL/hr, IntraVENous, PRN, if patient receiving piggyback infusions and maintenance fluids are not ordered OR KVO fluids to protect IV site / prevent frequent line interruptions / long duration, Starting on Mon04/04/23 at 0921, Preprocedure, For piggyback infusion, administer at same rate as piggyback for a total of 25 mL. Enter 25 mL into dose field and piggyback rate into rate field of order. If piggyback is infusing at a rate less than 100 mL/hr, enter 25 mL into dose field and 100 mL/hr into rate field of order. For KVO fluids, enter rate of 20 mL/hr or less into rate field of order. sodium chloride 0.9 % infusion 5-250 mL/hr, IntraVENous, PRN, if patient receiving piggyback infusions and maintenance fluids are not ordered OR KVO fluids to protect IV site / prevent frequent line interruptions/ long duration, Starting on Mon04/04/23 at 0921, Preprocedure, For piggyback infusion, administer at same rate as piggyback for a total of 25 mL. Enter 25 mL into dose field and piggyback rate into rate field of order. If piggyback is infusing at a rate less than 100 mL/hr, enter 25 mL into dose field and 100 mL/hr into rate field of order. For KVO fluids, enter rate of 20 mL/hr or less into rate field of order. sodium chloride 0.9 % irrigation solution (CANCELED) As needed, Starting on Mon04/04/23 at 1304, Intraprocedure 1304 (Given - Provid er: Igor Subramanian MD) sodium chloride 0.9% (NS) flush 10 mL 10 mL, IntraVENous, PRN, line care, Starting on Mon04/04/23 at 0921, Preprocedure, After every IV line use sodium chloride 0.9% (NS) flush 5-40 mL 5-40 mL, IntraVENous, PRN, line care, After every IV line use, Starting on Mon04/04/23 at 0921, Preprocedure, For Line Patency: Peripheral IV = 5 mL; Midline or Central Line = 10 mL/lumen. If following IV push medication, administer flush at same rate as the IV push. Flush volume is determined by type of infusion therapy being given. For non-viscous solutions use: Peripheral IV = 5 mL Midline or Central Line = 10 mL/lumen For viscous solutions (i.e. blood components, parenteral nutrition, contrast media, or after obtaining blood sample) use: Peripheral IV = 10 mL Midline or Central Line = 20 mL/lumen sterile water irrigation solution (CANCELED) As needed, Starting on Mon04/04/23 at 1304, Intraprocedure 1304 (Given - Provid er: Igor Subramanian MD) Linked Groups Order Group 1: labetalol (Normodyne,Trandate) injection 5 mgJump to med 5 mg, IntraVENous, Every 10 min PRN, high blood pressure, for SBP greater than 160 mmHg for 2 consecutive measurements taken from different sites., Starting on Mon04/04/23 at 1414, For 2 doses, Recovery (only)
PRN for SBP >160 for 2 consecutive measurements, if HR is 60 or greater. If beta radha is contraindicated (HR less than 60, heart block, COPD or asthma) use hydralazine IV order.
Or hydrALAZINE (Apresoline) injection 5 mgJump to med 5 mg, IntraVENous, Every 15 min PRN, high blood pressure, for SBP greater than 160 mmHg for 2 consecutive measurements taken from different sites, Starting on Mon04/04/23 at 1414, For 2 doses, Recovery (only)
PRN for SBP > 160 for 2 consecutive measurements, and if one of the following conditions is met: 1) If IV labetolol is ineffective. 2) If HR is under 60. 3) If patient has heart block, COPD or asthma. If both labetalol and hydralazine ineffective, notify anesthesia provider.
Group 2: oxyCODONE (Roxicodone) immediate release tablet 5 mgJump to med 5 mg, Oral, PRN, moderate pain (4-6), Starting on Mon04/04/23 at 1414, For 1 dose, Recovery (only)
PHASE II
Or oxyCODONE (Roxicodone) immediate release tablet 10 mgJump to med 10 mg, Oral, PRN, severe pain (7-10), Starting on Mon04/04/23 at 1414, For 1 dose, Recovery (only)
PHASE II
Scheduled Medication Order 04/07/2024 04/08/2024 04/09/2024 acetaminophen (Tylenol) tablet 1,000 mg (COMPLETED) 1,000 mg, Oral, Once, On Mon04/08/24 at 1245, For 1 dose, Preprocedure, Administer 60 minutes prior to surgery. 1252 (Given - Provider: Radha Castillo, FRANCHESKA) acetaminophen (Tylenol) tablet 1,000 mg 1,000 mg, Oral, Every 8 hours, First dose on Mon04/08/24 at 2200, Phase II/On Unit 2213 (Given - Provider: Sathish Ibarra RN) 0614 (Given - Provider: Sathish Ibarra RN)1422 (Given - Provider: Pauly Zazueta, FRANCHESKA) carbidopa-levodopa (Sinemet) 25-100 MG per tablet 1 tablet 1 tablet, Oral, 3 times daily, First dose on Mon04/08/24 at 2100, Phase II/On Unit 1955 (Given - Provider: Sathish Ibarra RN) 0837 (Given - Provider: Pauly Zazueta RN)1422 (Given - Provider: Pauly Zazueta RN) ceFAZolin (Ancef) 1,000 mg in sodium chloride 0.9 % 50 mL IVPB (COMPLETED) 1,000 mg, IntraVENous, at 100 mL/hr, Administer over 30 Minutes, Every 8 hours, First dose on Mon04/08/24 at 2200, For 24 hours, Phase II/On Unit, Mini-Bag Plus bag, Suspected Indication (Select all that apply): Surgical Prophylaxis 2217 (New Bag - Provider: Sathish Ibarra RN)2247 (Stopped - Provider: Sathish Ibarra RN) 0614 (New Bag - Provider: Sathish Ibarra RN)0644 (Stopped - Provider: Sathish Ibarra RN)1421 (New Bag - Provider: Pauly Zazueta RN)1451 (Stopped - Provider: Pauly Zazueta RN) ceFAZolin in dextrose 4% (Ancef) IVPB 2,000 mg (COMPLETED) 2,000 mg, IntraVENous, Administer over 30 Minutes, Once, On Mon04/08/24 at 1245, For 1 dose, Preprocedure, Administer 60 minutes prior to surgery. premix bag, Suspected Indication (Select all that apply): Surgical Prophylaxis 1418 (Given - Provider: Lam Ordonez CRNA)1658 (Anesthesia Volume Adjustment - Provider: Lam Ordonez CRNA) cetirizine (ZyrTEC) tablet 10 mg 10 mg, Oral, Daily, First dose on Mon04/09/24 at 0900, Phase II/On Unit, Substituted for Loratadine (CLARITIN). 0836 (Given - Provid er: Pauly Zazueta RN) docusate sodium (Colace) capsule 100 mg 100 mg, Oral, 2 times daily, First dose on Mon04/08/24 at 2100, Phase II/On Unit, Bowel Regimen - for prevention of constipation. 2100 (Not Given - Provider: Sathish Ibarra RN - Reason: Patient/family refused) 0835 (Given - Provider: Pauly Zazutea RN) famotidine (Pepcid) tablet 20 mg (COMPLETED)(Linked Group 1) 20 mg, Oral, Once, On Mon04/08/24 at 1245, For 1 dose, Preprocedure, IV or Oral 1252 (Given - Provider: Radha Castillo RN) gabapentin (Neurontin) capsule 2,000 mg 2,000 mg, Oral, Nightly, First dose on Mon04/08/24 at 2100, Phase II/On Unit 2213 (Given - Provider: Sathish Ibarra RN) heparin injection 5,000 Units 5,000 Units, SubCUTAneous, Every 12 hours scheduled (2 times per day), First dose on Mon04/09/24 at 0900 0835 (Given - Provid er: Pauly Zazueta RN) losartan (Cozaar) tablet 25 mg 25 mg, Oral, Daily, First dose on Mon04/09/24 at 0900, Phase II/On Unit, Substituted for telmisartan (Micardis). , On hold since Mon04/09/2024 at 0605 until manually unheld 06 (Held by provid er - Provider: Shelbi Canales MD - Reason: Other - Comment: ALEXIA)0900 (Dose Auto Held - Provider: Shelbi Canales MD)2027 (Unheld by provider - Provider: Automatic Discharge Provider) PARoxetine (Paxil) tablet 10 mg 10 mg, Oral, Every morning, First dose on Mon04/09/24 at 0900, Phase II/On Unit 0836 (Given - Provid er: Pauly Zazueta RN) propranolol (Inderal) tablet 20 mg 20 mg, Oral, 2 times daily, First dose on Mon04/08/24 at 2100, Phase II/On Unit 2214 (Given - Provider: Sathish Ibarra RN) 0837 (Given - Provider: Pauly Zazueta RN) sodium chloride 0.9% (NS) flush 10 mL 10 mL, IntraVENous, Every 12 hours scheduled (2 times per day), First dose on Mon04/08/24 at 2100, Phase II/On Unit 2100 (Not Given - Provider: Sathish Ibarra RN - Reason: IV Fluids Infusing) 0837 (Not Given - Provider: Pauly Zazueta RN - Reason: IV Fluids Infusing) tamsulosin (Flomax) 24 hr capsule 0.4 mg 0.4 mg, Oral, Daily, First dose on Mon04/09/24 at 0900, Phase II/On Unit, Do not crush, chew, or split. 0835 (Given - Provid er: Pualy Zazueta RN) Continuous Medication Order 04/07/2024 04/08/2024 04/09/2024 lactated Ringer's (LR) infusion (CANCELED) 50 mL/hr, IntraVENous, Continuous, Starting on Mon04/08/24 at 1245, Preprocedure, Upon admission to sameday - please start iv if patient does not have iv access. Use 500ml NS for patients on dialysis. 1259 (New Bag - Provider: Radha Castillo RN)1403 (Continued by Anesthesia - Provider: Lam Ordonez CRNA)1410 (Paused - Provider: Lam Ordonez CRNA - Comment: Switch to gravity)1411 (New Bag - Provider: Lam Ordonez CRNA)1516 (New Bag - Provider: Lam Ordonez CRNA)1633 (Stopped - Provider: Lam Ordonez CRNA) lactated ringers infusion 75 mL/hr, IntraVENous, Continuous, Starting on Mon04/08/24 at 1915, Phase II/On Unit 1915 (Rate/Dose Verify - Provider: Sathish Ibarra RN) 0620 (New Bag - Provider: Sathish Ibarra RN) PRN Medication Order 04/07/2024 04/08/2024 04/09/2024 HYDROmorphone (Dilaudid) injection 0.25 mg (CANCELED) 0.25 mg, IntraVENous, Every 5 min PRN, moderate pain (4-6), Starting on Mon04/08/24 at 1703, For 4 doses, Recovery (only), Phase I and Phase II- Initial therapy for moderate pain (4-6). Restricted to a 90 minute time frame starting when the patient can verbally state their pain score. If after 2 doses the pain score does not decrease by more than one point, then call the provider. If oral meds are utilized, do not return to initial therapy medications. 1754 (Given - Provider: Olivia Dubois RN) HYDROmorphone (Dilaudid) injection 0.5 mg 0.5 mg, IntraVENous, Every 4 hours PRN, breakthrough pain, Starting on Mon04/08/24 at 1905, Phase II/On Unit, If oral and IV narcotics ordered, use oral first and only use IV if oral is ineffective or cannot take oral. Do Not give oral and IV within 1 hour of each other unless specifically ordered. naloxone (Narcan) injection 0.4 mg 0.4 mg, IntraVENous, Every 5 min PRN, opioid reversal, Starting on Mon04/09/24 at 0801, For RR <10, pinpoint pupils, over sedation for opioid reversal - MUST notify electronics assembler and tester provider immediately after first dose, may give IM or SQ if no IV access ondansetron (Zofran) injection 4 mg(Linked Group 2) 4 mg, IntraVENous, Every 6 hours PRN, nausea, vomiting, Starting on Mon04/08/24 at 1905, Phase II/On Unit, 1st Line. Give IV if patient is unable to take orally. If inadequate response within 60 minutes, proceed to next-line agent or contact provider if no further options ordered. ondansetron ODT (Zofran-ODT) disintegrating tablet 4 mg(Linked Group 2) 4 mg, Oral, Every 8 hours PRN, nausea, vomiting, Starting on Mon04/08/24 at 1905, Phase II/On Unit, 1st Line. If inadequate response within 60 minutes, proceed to next-line agent or contact provider if no further options ordered. Patient should allow tablet to dissolve on tongue. Do not remove from blister pack until just before administering. oxyCODONE (Roxicodone) immediate release tablet 2.5 mg(Linked Group 3) 2.5 mg, Oral, Every 4 hours PRN, moderate pain (4-6), Starting on Mon04/08/24 at 1905, Phase II/On Unit 1954 (See Alternative - Provider: Sathish Ibarra, RN) 112 (See Alternative - Provider: Pauly Zazueta, RN) oxyCODONE (Roxicodone) immediate release tablet 5 mg(Linked Group 3) 5 mg, Oral, Every 4 hours PRN, severe pain (7-10), Starting on Mon04/08/24 at 1905, Phase II/On Unit 1954 (Given - Provider: Sathish Ibarra, FRANCHESKA) 1126 (Given - Provider: Pauly Zazueta, RN) polyethylene glycol (PEG) 3350 (Miralax) packet 17 g 17 g, Oral, Daily PRN, constipation, Starting on Mon04/08/24 at 1905, Phase II/On Unit, 1st line for treatment of constipation - give scheduled if no bowel movement in past 24 hours. sodium chloride 0.9 % infusion 5-250 mL/hr, IntraVENous, PRN, if patient receiving piggyback infusions and maintenance fluids are not ordered OR KVO fluids to protect IV site / prevent frequent line interruptions/ long duration, Starting on Mon04/08/24 at 1905, Phase II/On Unit, For piggyback infusion, administer at same rate as piggyback for a total of 25 mL. Enter 25 mL into dose field and piggyback rate into rate field of order. If piggyback is infusing at a rate less than 100 mL/hr, enter 25 mL into dose field and 100 mL/hr into rate field of order. For KVO fluids, enter rate of 20 mL/hr or less into rate field of order. sodium chloride 0.9 % irrigation solution (CANCELED) As needed, Starting on Mon04/08/24 at 1439, Intraprocedure 1439 (Given - Provider: Conner Quintero MD) sodium chloride 0.9% (NS) flush 10 mL 10 mL, IntraVENous, PRN, line care, Starting on Mon04/08/24 at 1905, Phase II/On Unit, After every IV line use Linked Groups Order Group 1: famotidine (Pepcid) tablet 20 mg (COMPLETED)Jump to med 20 mg, Oral, Once, On Mon04/08/24 at 1245, For 1 dose, Preprocedure, IV or Oral Or famotidine (Pepcid) 20 mg in sodium chloride (PF) 0.9 % 10 mL injection (COMPLETED) 20 mg, IntraVENous, Administer over 2 Minutes, Once, On Mon04/08/24 at 1245, For 1 dose, Preprocedure, IV or Oral Group 2: ondansetron ODT (Zofran-ODT) disintegrating tablet 4 mgJump to med 4 mg, Oral, Every 8 hours PRN, nausea, vomiting, Starting on Mon04/08/24 at 1905, Phase II/On Unit, 1st Line. If inadequate response within 60 minutes, proceed to next-line agent or contact provider if no further options ordered. Patient should allow tablet to dissolve on tongue. Do not remove from blister pack until just before administering. Or ondansetron (Zofran) injection 4 mgJump to med 4 mg, IntraVENous, Every 6 hours PRN, nausea, vomiting, Starting on Mon04/08/24 at 1905, Phase II/On Unit, 1st Line. Give IV if patient is unable to take orally. If inadequate response within 60 minutes, proceed to next-line agent or contact provider if no further options ordered. Group 3: oxyCODONE (Roxicodone) immediate release tablet 2.5 mgJump to med 2.5 mg, Oral, Every 4 hours PRN, moderate pain (4-6), Starting on Mon04/08/24 at 1905, Phase II/On Unit Or oxyCODONE (Roxicodone) immediate release tablet 5 mgJump to med 5 mg, Oral, Every 4 hours PRN, severe pain (7-10), Starting on Mon04/08/24 at 1905, Phase II/On Unit Scheduled Medication Order 04/17/2024 04/18/2024 04/19/2024 sodium chloride 0.9 % bolus 500 mL (COMPLETED) 500 mL, IntraVENous, at 1,000 mL/hr, Administer over 0.5 Hours, Once, On Mon04/19/24 at 0835, For 1 dose 0835 (New Bag - Prov ider: Ash Lombardo RN)09 (Due: Stopped - Provider: Ash Lombardo RN) Scheduled Medication Order 02/26/2025 02/27/2025 02/28/2025 sodium chloride 0.9% (NS) flush 10 mL 10 mL, IntraVENous, Every 12 hours scheduled (2 times per day), First dose on Mon02/28/25 at 0900 0900 (Canceled Entry - Provider: Automatic Discharge Provider - Comment: Automatically canceled at discontinue of medication order) PRN Medication Order 02/26/2025 02/27/2025 02/28/2025 simethicone (Mylicon) drops (COMPLETED) Intraluminal, As needed, Starting on Mon02/28/25 at 0801, Intraprocedure 0801 (Given - Provid er: Mark Yeh MD) sodium chloride 0.9 % infusion 5-250 mL/hr, IntraVENous, PRN, if patient receiving piggyback infusions and maintenance fluids are not ordered OR KVO fluids to protect IV site / prevent frequent line interruptions/ long duration, Starting on Mon02/28/25 at 0722, For piggyback infusion, administer at same rate as piggyback for a total of 25 mL. Enter 25 mL into dose field and piggyback rate into rate field of order. If piggyback is infusing at a rate less than 100 mL/hr, enter 25 mL into dose field and 100 mL/hr into rate field of order. For KVO fluids, enter rate of 20 mL/hr or less into rate field of order. 0728 (New Bag - Prov ider: Benja Anderson CRNA)09 (Anesthesia Volume Adjustment - Provider: Benja Anderson CRNA) sodium chloride 0.9% (NS) flush 10 mL 10 mL, IntraVENous, PRN, line care, Starting on Mon02/28/25 at 0722, After every IV line use FOR RECORDS PERTAINING TO PATIENTS WHO ARE OR HAVE BEEN ENROLLED IN A CHEMICAL DEPENDENCY/SUBSTANCEABUSE PROGRAM, SOME INFORMATION MAY BE OMITTED. This clinical summary was aggregated from multiple sources. Caution should be exercised in using it in the provision of clinical care. This summary normalizes information from multiple sources, and as a consequence, information in this document may materially change the coding, format and clinical context of patient data. In addition, data may be omitted in some cases. CLINICAL DECISIONS SHOULD BE BASED ON THE PRIMARY CLINICAL RECORDS. [facility] [employer] [facility]. provides no warranty or guarantee of the accuracy or completeness of information in this document.
[2025-04-01 15:14] LABS: ALB/GLOB Ratio 1.5 RATIO (0.9-2.4); AST(SGOT) 24 U/L (<=37); Alanine Aminotransfer ALT/SGPT 10 U/L (<=46); Albumin, Serum 4.3 g/dL (3.4-4.8); Alkaline Phosphatase 71 U/L (40-129); Anion Gap 12 (5-15); BUN 15 mg/dL (4-19); BUN/Creat Ratio 11.5 RATIO (10-20); Calcium,Total 9.6 mg/dL (7.6-11.0); Carbon Dioxide 21.4 mmol/L (21.0-32.0); Chloride 100 mmol/L (98-108); Creatinine, Serum 1.27 mg/dL (0.70-1.20); EST Glomerular Filtration Rate 60 (>60); Globulin 2.9 g/dL (2.2-4.2); Glucose 96 mg/dL (70-99); Potassium 4.6 mmol/L (3.3-5.1); Protein, Total 7.2 g/dL (5.9-8.4); Sodium Level 133 mmol/L (133-145); Total Bilirubin 0.47 mg/dL (0.00-1.30)
[2025-04-01 15:56] LABS: CRP < 3.00 mg/L (0.0-3.0)
== END | disposition home or self-care (01) ==
LOC: MTLAB 10:01
PROVIDERS: PCP Family Medicine; Referring Provider Internal Medicine Rheumatology; Visit Provider Internal Medicine Rheumatology
DX: M06.30 Rheumatoid nodule, unspecified site (principal)
CPT/HCPCS: 36415; 80053; 85025; 85652; 86140

== ENCOUNTER → 2025-09-22 | Outpatient (CLI) | payer MEDICARE, OTHER, SELFPAY ==
[2025-09-22 15:26] LABS: Hematocrit 40.2 % (40-54); Hemoglobin 13.3 g/dL (13.0-16.5); Immature Granulocytes Count 0.010 X10^3/uL (0.0-0.0); Mean Corp Hgb Conc 33.1 g/dL (32-36); Mean Corpuscular Volume 95.0 fL (80-94); Mean Platelet Vol. 9.2 fl (6.2-12.0); NRBC Flagged by Analyzer 0 % (0-5); Platelet Count 227 K/mm3 (150-450); RBC Distribution Width CV 12.2 % (11.6-14.6); RBC Distribution Width SD 42.3 fl (35.1-43.9); Red Blood Count 4.23 M/mm3 (4.6-6.2); White Blood Count 5.5 K/mm3 (4.4-11.0)
[2025-09-22 15:46] LABS: AST(SGOT) 25 U/L (<=37); Alanine Aminotransfer ALT/SGPT 11 U/L (<=46); Albumin, Serum 4.2 g/dL (3.4-4.8); Alkaline Phosphatase 80 U/L (40-129); Anion Gap 11 (5-15); BUN 9 mg/dL (4-19); BUN/Creat Ratio 6.6 RATIO (10-20); Calcium,Total 9.7 mg/dL (7.6-11.0); Carbon Dioxide 24.9 mmol/L (21.0-32.0); Chloride 102 mmol/L (98-108); Globulin 3.0 g/dL (2.2-4.2); Glucose 83 mg/dL (70-99); Potassium 4.3 mmol/L (3.3-5.1)
== END | disposition home or self-care (01) ==
LOC: MTLAB 12:32
PROVIDERS: PCP Family Medicine; Referring Provider Internal Medicine Rheumatology; Visit Provider Internal Medicine Rheumatology
DX: M06.09 Rheumatoid arthritis without rheumatoid factor, multiple sites (principal)
CPT/HCPCS: 36415; 80053; 85025